=== PATIENT | female | born 1935 | race Caucasian/White ===

== ENCOUNTER 2017-07-05 20:46 | Emergency (ER) | payer MEDICARE, OTHER, SELFPAY ==
[2017-07-05 20:52] VITALS: BP 158/73; PULSE 68; RESP 19; TEMP 36.8; O2SAT 98; BMI 36.1
--- NOTE | 2017-07-05 21:02 | CT_ITS ---
STUDY: CT BRAIN WITHOUT CONTRAST REASON FOR EXAM: Female, 82 years old. Trauma RADIATION DOSAGE (If Supplied By Facility): CTDIvol = ( 44.99 ) mGy, DLP = ( 812.98 ) mGycm TECHNIQUE: Transaxial CT imaging of the brain was performed without administration of intravenous contrast material. Individualized dose optimization techniques were used for this CT. COMPARISON: None. FINDINGS: There is minimal soft tissue swelling of the posterior right parietal region. Normal calvarium. There is moderate cerebral atrophy with widening of the extra-axial spaces and ventricular dilatation. There are areas of decreased attenuation within the white matter tracts of the supratentorial brain, consistent with microvascular disease changes. There is an old lacunar infarct of the right insular lobe. Normal basal ganglia and thalami. Normal brainstem. There is mild cerebellar atrophy. There is no intracranial hemorrhage. There are no findings of an acute ischemic infarction. There is a polypoid filling defect of the left maxillary sinus consistent with a mucoid retention cyst. CT/Brain/Head without Contrast IMPRESSION: 1. Chronic involutional changes of the brain. 2. 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 3. 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 4. There is no intracranial hemorrhage or calvarial fracture. Electronically Signed: Mikie Shi MD at 21:50 EDT , Service support ,
--- NOTE | 2017-07-05 21:02 | CT_ITS ---
STUDY: CT CERVICAL SPINE WITHOUT CONTRAST REASON FOR EXAM: Female, 82 years old. Trauma RADIATION DOSAGE (If Supplied By Facility): CTDIvol = ( 28.71 ) mGy, DLP = ( 589.72 ) mGycm TECHNIQUE: High resolution transaxial imaging was performed without contrast material. Sagittal and coronal images were reconstructed. Individualized dose optimization techniques were used for this CT. COMPARISON: None FINDINGS: Normal craniovertebral junction. There are degenerative changes of the anterior atlantoaxial articulation. There are cystic changes of the odontoid base. There is reversal of the normal cervical lordosis. There is diffuse endplate spondylosis throughout the mid to lower cervical spine. There is flattening and remodeling of the C6 vertebral body. C2-3: There are bilateral hypertrophic degenerative facet changes. There is no central canal or foraminal stenosis. Disc spacing is preserved. C3-4: There are bilateral hypertrophic degenerative facet changes. There is severe foraminal stenosis on the left. There is no central canal stenosis. Disc spacing is preserved. C4-5: There is moderately severe disc space narrowing. There are severe hypertrophic degenerative facet changes on the left with moderately severe left spinal foraminal stenosis. There is no central canal stenosis. C5-6: There is severe disc space narrowing with reactive sclerosis of the adjacent endplates. There is moderately severe bilateral spinal foraminal narrowing. There is no central canal stenosis. There are bilateral hypertrophic degenerative facet changes. C6-7: There is severe disc space narrowing with reactive sclerosis of the adjacent endplates. There is moderately severe bilateral spinal foraminal stenosis. There is mild central canal stenosis at this level. There are mild bilateral degenerative facet changes. C7-T1: There is mild disc space narrowing. There is no central canal or foraminal stenosis. There are mild bilateral degenerative facet changes. Normal visualized soft tissue structures. CT/Spine Cervical without Contras IMPRESSION: Cervical degenerative changes as detailed above. There is no evidence of fracture or subluxation. Electronically Signed: Mikie Shi MD at 22:00 EDT , Service support ,
--- NOTE | 2017-07-05 21:47 | ED.VISSUMM ---
- ER Visit Summary Date of Service: 07/05/17 Chief Complaint: Fall History of Present Illness: The patient is a 82 F presenting after fall. Patient states she was sitting in her chair when the warehouse delivery driver man rang the doorbell. She tripped as she was getting up quickly. She fell hitting her head on the table. She did not lose consciousness. She was able to ambulate after the fall. She has a laceration to her posterior scalp. She is not on anticoagulants. No other injuries. Physical Examination: Vitals are stable. Patient is afebrile. Alert no acute distress. HEENT exam 2 cm posterior scalp laceration and hematoma Neck is nontender Lungs are clear and equal bilaterally. Heart is regular rate and rhythm. Abdomen is soft nontender nondistended. Extremities are unremarkable. Skin is warm and dry. No focal neurologic deficit. Remainder of exam is unremarkable. Emergency Department Course and Treatment: Patient was given tetanus IM. CT head and neck show no acute process. Wound was irrigated, anesthesized with lidocaine. 2 albert were placed. Patient tolerated this well. She is advised wound care instructions. Advised to follow-up with PCP. Advised return to ED if worsening complaints. Disposition: Discharged home Impression: Status post fall, closed head injury, scalp laceration, laceration repair This note was generated with [employer] dictation software. It may contain incorrect words, spelling, and punctuation that were not noted in review of the chart prior to signing ED Disposition - Plan for ED Patient: Chief Complaint: Head Injury Referrals: Adi Meade MD [Primary Care Provider] -
[2017-07-05] MEDS: Diphth,Pertuss(Acell),Tet Vac 0.5 ML Vial IM (22:22)
--- NOTE | 2017-07-05 23:43 | ED.DEP ---
ED Disposition - Plan for ED Patient: Chief Complaint: Head Injury Instructions: ED Head Injury Closed, ED Laceration Scalp Stitch Or Stap Referrals: Adi Meade MD [Primary Care Provider] -
[2017-07-06 00:03] VITALS: PULSE 81; RESP 18; O2SAT 99
== END 2017-07-06 00:04 | disposition home or self-care (01) ==
PROVIDERS: Emergency Provider Emergency Medicine; Family Provider Family Medicine; PCP Family Medicine
DX: S01.01XA Laceration without foreign body of scalp, initial encounter (principal); W01.190A Fall on same level from slipping, tripping and stumbling with subsequent striking against furniture, initial encounter; Y93.9 Activity, unspecified; Y92.9 Unspecified place or not applicable; Y99.9 Unspecified external cause status; Z23 Encounter for immunization; E11.9 Type 2 diabetes mellitus without complications; I10 Essential (primary) hypertension; F32.9 Major depressive disorder, single episode, unspecified; Z79.84 Long term (current) use of oral hypoglycemic drugs; Z79.82 Long term (current) use of aspirin; Z79.52 Long term (current) use of systemic steroids; Z79.899 Other long term (current) drug therapy
CPT/HCPCS: 12001; 70450; 72125; 90715; 99285

== ENCOUNTER → 2017-08-29 17:23 | Outpatient (CLI) | payer MEDICARE, OTHER, SELFPAY ==
--- NOTE | 2017-08-29 17:23 | DT_ITS ---
This patient was seen during an EMR downtime August 26, 2017 - September 02, 2017. This patient may have a combination of paper and electronic documentation or all paper documentation. All documentation is viewable within the e-chart portion of [facility] for each patient visit.
== END ==
PROVIDERS: Family Provider Family Medicine; PCP Family Medicine; Visit Provider Nurse Practitioner Adult Health
DX: R82.99 Other abnormal findings in urine (principal)
CPT/HCPCS: 87086; 87088; 87186

== ENCOUNTER 2017-09-21 01:32 | Emergency (ER) | payer MEDICARE, OTHER, SELFPAY ==
[2017-09-21 01:34] VITALS: BP 149/58; PULSE 67; RESP 15; TEMP 36.5; O2SAT 98; BMI 36.0
--- NOTE | 2017-09-21 01:53 | CT_ITS ---
STUDY: CT BRAIN WITHOUT CONTRAST REASON FOR EXAM: Female, 82 years old. FALL/HIT BACK OF HEAD/LAC/NO LOC RADIATION DOSAGE (If Supplied By Facility): CTDIvol = ( 44.99 ) mGy, DLP = ( 846.73 ) mGycm TECHNIQUE: Transaxial CT imaging of the brain was performed without administration of intravenous contrast material. Individualized dose optimization techniques were used for this CT. COMPARISON: None. FINDINGS: Normal soft tissue structures. Normal calvarium. There is moderate cerebral atrophy with widening of the extra-axial spaces and ventricular dilatation. There are areas of decreased attenuation within the white matter tracts of the supratentorial brain, consistent with microvascular disease changes. Normal basal ganglia and thalami. Normal brainstem. Normal cerebellum. There is no intracranial hemorrhage. There are no findings of an acute ischemic infarction. Left maxillary sinus cyst measures 1.[address]/Brain/Head without Contrast IMPRESSION: Chronic involutional changes of the brain. Electronically Signed: Mauricio Humphries MD at 2:31 EDT Tel , Service support ,
--- NOTE | 2017-09-21 02:42 | ED.VISSUMM ---
- ER Visit Summary Date of Service: 09/21/17 Chief Complaint: Laceration History of Present Illness: The patient is a [address] Ocampo. Patient reports that she stood up too fast lost her balance. She fell and hit her head. She did not have a loss of consciousness. She denies any neck, back, shoulder, wrist, or hip pain. Her tetanus is up-to-date. Review of systems: General: No fever, chills, cold sweats. Cardiovascular: No chest pain, palpitations. Respiratory: No cough, shortness of breath, dyspnea on exertion. Gastrointestinal: No abdominal pain, nausea, vomiting, diarrhea, melena, or hematochezia. Genitourinary: No dysuria, frequency, hematuria. Skin: No rash. Neuro: No headache, numbness, weakness. Physical Examination: Vitals: Stable. Afebrile. Head: 2 cm laceration left occipital region. No active bleeding. Neck: No vertebral tenderness. Full ROM without difficulty. Cleared by NEXUS criteria. Back: No vertebral tenderness. General: A&O x 3. NAD. Cardiovascular exam: Regular rate and rhythm, no murmur, rub or gallop. Respiratory exam: Chest nontender. No crepitus. Clear to auscultation bilaterally. No wheezes or stridor. Abdominal exam: Soft, nontender, nondistended, normal bowel sounds. No pain in RUQ or LUQ specifically. No peritoneal signs. Extremity: Atraumatic. No pain with range of motion. Test Results: CT brain shows no intercranial hemorrhage. Emergency Department Course and Treatment: Patient had her wound anesthetized and repaired. She tolerated it well. Treatment Plan: Patient be discharged instructions to follow-up Dr. Ocampo in 10-14 days for staple removal. Return to the emergency department for any worsening symptoms. Disposition: To home in improved and stable condition. Impression: 1. Fall. 2. Scalp laceration, 2 cm, repaired. Procedure note: Wound was cleansed with chlorhexidine soap. Anesthetized with 1% lidocaine without epinephrine. Copiously irrigated with normal saline. Wound was explored there is no foreign material present. It was closed with 2 albert. The patient tolerated it well. This note was generated with [employer] software. It may contain incorrect words, spelling, and punctuation that were not noted in review of the chart prior to signing ED Disposition - Plan for ED Patient: Disposition: Home or Assisted Living Chief Complaint: Laceration Instructions: ED Laceration Scalp Stitch Or Stap Referrals: Da Ocampo MD [Primary Care Provider] - 10-14 Days suture removal
[2017-09-21 03:51] VITALS: BP 139/67; PULSE 84; RESP 22; O2SAT 98
--- NOTE | 2017-09-21 03:52 | ED.RN ---
THIS NURSE REVIEWED D/C INSTRUCTIONS WITH PT. PT VERBALIZED UNDERSTANDING OF INSTRUCTIONS. PT DENIES FURTHER NEEDS OR QUESTIONS AT THIS TIME
== END 2017-09-21 04:00 | disposition home or self-care (01) ==
LOC: ED 02:49
PROVIDERS: Emergency Provider Emergency Medicine; Family Provider Family Medicine; PCP Family Medicine
DX: S01.01XA Laceration without foreign body of scalp, initial encounter (principal); W19.XXXA Unspecified fall, initial encounter; Y93.9 Activity, unspecified; Y92.9 Unspecified place or not applicable; Y99.9 Unspecified external cause status; E11.9 Type 2 diabetes mellitus without complications; I10 Essential (primary) hypertension; F41.9 Anxiety disorder, unspecified; Z79.84 Long term (current) use of oral hypoglycemic drugs; Z79.82 Long term (current) use of aspirin; Z79.899 Other long term (current) drug therapy
CPT/HCPCS: 12001; 70450; 99283

== ENCOUNTER → 2017-11-29 13:38 | Outpatient (CLI) | payer MEDICARE, OTHER, SELFPAY | PROVIDERS: Family Provider Family Medicine; PCP Family Medicine; Visit Provider Urology | DX: R10.9 Unspecified abdominal pain (principal); R30.0 Dysuria | CPT/HCPCS: 87086; 87088; 87186 ==

== ENCOUNTER → 2018-07-15 16:36 | Outpatient (CLI) | payer MEDICARE, OTHER, SELFPAY ==
--- NOTE | 2018-07-15 16:39 | VDLE_ITS ---
Reason For Study: edema Procedure LEFT Exam performed in department. GSV is normal. The exam was diagnostic. CFV is compressible, spontaneous, phasic, A preliminary report was called and/or faxed competent, and demonstrates normal to Dr. Ocampo. augmentation. FV is compressible, spontaneous, phasic, competent and demonstrates normal augmentation. POP V is compressible, spontaneous, phasic, competent and demonstrates normal augmentation. T/P Trunk is compressible. PTV is compressible. LT PerV is compressible. Hypoechoic area behind the knee measuring 2.85 x .89 cm. Area is nonvascular. Interpretation Summary Deep veins of the left lower extremity are patent and compressible segmentally. There is no evidence of left lower extremity deep vein thrombosis. Valvular competence appears intact within the proximal deep venous system on the left . The left greater saphenous vein appears patent and compressible segmentally. A non-vascular, hypoechoic structure is noted in the left popliteal space, measuring 2.85 cm x 0.89 cm. This probably represents a popliteal cyst. Clinical correlation is advised. Ordering Physician: Da Ocampo Performed By: David Fischer, RVT
== END ==
PROVIDERS: Family Provider Family Medicine; PCP Family Medicine; Referring Provider Family Medicine; Visit Provider Family Medicine
DX: M79.605 Pain in left leg (principal); R60.9 Edema, unspecified
CPT/HCPCS: 93971

== ENCOUNTER 2018-08-17 19:00 | Emergency (ER) | payer MEDICARE, OTHER, SELFPAY ==
[2018-08-17 19:02] VITALS: BP 167/79; PULSE 78; RESP 16; TEMP 37.2; O2SAT 98; BMI 34.3
--- NOTE | 2018-08-17 19:28 | CT_ITS ---
STUDY: CT ABDOMEN AND PELVIS WITHOUT CONTRAST REASON FOR EXAM: Female, 83 years old. Lower back pain. RADIATION DOSAGE (If Supplied By Facility): CTDIvol = ( 21.95 ) mGy, DLP = ( 1014.42 ) mGycm TECHNIQUE: Transaxial images were obtained from the dome of the diaphragm to the symphysis pubis without oral contrast, and without intravenous contrast. Sagittal and coronal images were reconstructed. Individualized dose optimization techniques were used for this CT. COMPARISON: None. FINDINGS: The visualized lung bases are unremarkable. There are coronary artery calcifications. There are stable scattered fat-containing round low-attenuation foci throughout the liver. Normal gallbladder and extrahepatic biliary system. Normal spleen. Normal pancreas. Normal bilateral adrenal glands. There are stable fat-containing round to small to characterize low-attenuation foci within the kidneys that may reflect underlying angiomyolipomas. There are linear calcifications within the kidneys that may be vascular in nature however cannot exclude nonobstructing calculi. Normal visualized stomach. Normal small intestine. There are scattered diverticula throughout the sigmoid colon. There is a moderate amount of stool throughout the colon and rectum. The appendix is visualized and appears normal. There is diffuse atherosclerotic calcification of the abdominal aorta, without a demonstrated aneurysm. Normal inferior vena cava. Normal retroperitoneum. Normal urinary bladder. There is a small umbilical hernia containing fat. There are diffuse degenerative changes of the visualized thoracic and lumbar spine. There is a grade 1 anterior spondylolisthesis of L5 on S1. CT/Abdomen/Pelvis without Cont IMPRESSION: Moderate amount of stool throughout the colon and rectum. Degenerative changes of the visualized thoracic and lumbar spine. Grade 1 anterior spondylolisthesis of L5 on S1. Atherosclerosis. Electronically Signed: Jyoti Payton MD at 21:56 EDT Tel , Service support ,
--- NOTE | 2018-08-17 19:35 | ED.VIS.GEN ---
History of Present Illness Chief Complaint: Back Informant: Patient, Family Onset: Yesterday Context: Gradual Onset Timing: Continuous Quality: ache Location: right low back Current Severity: Severe Maximum Severity: Severe Worsened by: unknown -- pt thinks sometimes by movement Relieved by: nothing; took aleve, tylenol Narrative: Patient is very poor historian. But they are not sure of all the details. Patient states she had no injury, pain started gradually yesterday. She denies any radiation into her flank, abdomen, or lower extremities. She has had back pain in the past and states this is worse/different. She denies any numbness in her lower extremities or her saddle area. No bowel or bladder dysfunction. She has a history of frequent UTIs and is on antibiotics to prevent them and has noticed no urinary symptoms lately. No syncope or presyncope. No chest discomfort. No pain in the shoulder. - Past Medical History (1) DM (diabetes mellitus), type 2 Status: Chronic (2) HTN (hypertension) Status: Chronic (3) History of diverticulosis Status: Chronic (4) History of hyperlipidemia Status: Chronic (5) History of rheumatic fever Status: Chronic (6) Hypothyroidism Status: Chronic (7) Macular degeneration Status: Chronic (8) Obesity Status: Chronic (9) Osteoarthritis Status: Chronic Past Medical History - Allergies and Home Meds Allergies/Adverse Reactions: Allergies doxycycline calcium [From Vibramycin] Allergy (Verified 08/17/18 19:01) Unknown doxycycline hyclate [From Vibramycin] Allergy (Verified 08/17/18 19:01) Unknown doxycycline monohydrate [From Vibramycin] Allergy (Verified 08/17/18 19:01) Unknown fluticasone Allergy (Verified 08/17/18 19:01) Unknown influenza virus vaccine, specific [Influenza Virus Vacc,Specific] Allergy (Verified 08/17/18 19:01) Swelling pneumococcal vaccine [Pneumococcal Vaccine] Allergy (Verified 08/17/18 19:01) Rash promethazine HCl [From Phenergan] Allergy (Verified 08/17/18 19:) Unknown tetracycline [Tetracycline] Allergy (Verified 08/17/18 19:) Unknown metronidazole [From Flagyl] Adverse Reaction (Verified 08/17/18 19:) Unknown sulfamethoxazole [From Bactrim] Adverse Reaction (Verified 08/17/18 19:) Rash trimethoprim [From Bactrim] Adverse Reaction (Verified 08/17/18 19:01) Rash Primary Care Physician: Da Ocampo MD [Primary Care Provider] - Surgical History: cataract, hysterectomy, tonsillectomy - For ovarian cancer many years ago., - - Exploratory laparotomy for lysis of adhesions Lives: With Family Smoking Status: Never smoker - Family History Maternal Family History: Reports: - - Her mother of liver cancer Paternal Family History: Reports: Heart Disease Review of Systems General: Denies: Chills, Fever, Sweats Eyes: Denies: Visual changes - bilaterally, Diplopia ENT: Denies: Rhinorrhea, Sore throat Cardiovascular: Denies: Chest pain, Palpitations Respiratory: Denies: Dyspnea, Cough, Dyspnea on exertion Gastrointestinal: Denies: Abdominal pain, Nausea, Vomiting, Diarrhea, Melena, Hematochezia Genitourinary: Denies: Dysuria, Hematuria, Frequency Musculoskeletal: Reports: Arthralgias - Bilateral ankles, chronic, Back pain. Denies: Swelling, Extremity Pain Skin: Denies: Rash, Wounds Neurological: Denies: Headache, Weakness, Numbness Physical Exam Vital Signs/Narrative: Vital Signs Temp Pulse Resp BP Pulse Ox 08/17/18 19:02 98.9 F 78 16 167/79 H 98 Inital Vital Signs reviewed: Yes General: Well nourished, Well developed, Obese, No Acute Distress Head: Normocephalic, Atraumatic Eyes: Perrl, EOMI ENT: Moist mucous membranes, No rhinorrhea Neck: Supple, Nontender Cardiovascular: Regular rate, Regular rhythm, No murmurs Respiratory: No distress, CTA bilaterally, Chest nontender Abdomen: Soft, Nontender, Nondistended, Normal bowel sounds. Negative for: Pulsatile mass, Ventral hernia, Inguinal hernia, Umbilical hernia Back: Normal Inspection - Without rash, - - Tenderness right lumbosacral area, near SI joint area. Negative for: CVA tenderness Extremities: Nontender, No edema Skin: Normal color, No rash, No Trauma Neurological: Alert, Oriented x3, Cranial nerves II-XII grossly intact, Normal Strength, Normal Sensation Psychological: Normal affect, Normal Mood Diagnostic/Tx/Re-eval Impressions Abdomen/Pelvis CT 08/17/18 19:28 IMPRESSION: Moderate amount of stool throughout the colon and rectum. Degenerative changes of the visualized thoracic and lumbar spine. Grade 1 anterior spondylolisthesis of L5 on S1. Atherosclerosis. Electronically Signed: Jyoti Payton MD at 21:56 EDT Tel , Service support , 08/17/18 19:28 Abdomen/Pelvis without Cont [CT] Stat Laboratory Results 08/17/18 08/17/18 08/17/18 19:40 19:40 20:20 WBC 6.5 RBC 4.57 Hgb 12.4 Hct 38.3 MCV 83.8 MCH 27.1 MCHC 32.4 RDW 13.5 RDW Differential 40.9 Plt Count 273 MPV 9.3 Immature Gran % (Auto) 0.000 Neut % (Auto) 62.6 Lymph % (Auto) 25.8 Williams % (Auto) 9.2 Eos % (Auto) 2.1 Baso % (Auto) 0.3 Absolute Neuts (auto) 4.1 Absolute Lymphs (auto) 1.69 Total Counted Not Reportable Sodium 138 Potassium 3.8 Chloride 103 Carbon Dioxide 25.0 Anion Gap 10 BUN 20 H Creatinine 0.79 Estim Creat Clear Calc 37.45 Est GFR (MDRD) Af Amer 89 Est GFR (MDRD) Non-Af 74 BUN/Creatinine Ratio 25.3 H Glucose 193 H Calcium 9.4 Urine Color Yellow Urine Clarity Clear Urine pH 7.0 Ur Specific [place] 1.005 Urine Protein Negative Urine Glucose (UA) 50 H Urine Ketones 15 H Urine Occult Blood 10 H Urine Nitrite Positive H Urine Bilirubin Negative Urine Urobilinogen Normal Ur Leukocyte Esterase 100 H Urine RBC 0 SEEN Urine WBC 0-5 SEEN Ur Squamous Epith Cells 0 SEEN Urine Bacteria 3+ Urine Mucus 0 SEEN - Medical Decision Making Labs unremarkable, urine showing indicators for infection including nitrite and 500 leukocyte esterase, although only 5 white blood cells. This was sent for culture and given her new unilateral back pain, CT was performed and shows no evidence of pyelo-or other acute abnormality except for a market amount of stool throughout the colon and rectum. She does have degenerative changes throughout the lower spine, but nothing acute that explains her pain. She was reassured. Her pain was treated with morphine which helped. I feel she can safely be discharged home with empiric treatment for urinary tract infection, some pain medication, and outpatient follow-up. She and family are comfortable with that plan. ED Disposition - Plan for ED Patient: Disposition: Home or Assisted Living Diagnosis: UTI (urinary tract infection), Acute low back pain Instructions: ED Low Back Pain Injury, ED UTI Cystitis Female Prescriptions: Hydrocodone Bitart/Apap 5-325 [[place] 5MG-325MG] 1 tab PO Q4H PRN PRN 2 Days #10 tab PRN Reason: Pain Sulfamethoxazole/Trimethoprim [Bactrim Ds Tablet] 1 ea PO BID #14 tab Referrals: Da Ocampo MD [Primary Care Provider] - 3-5 Days
[2018-08-17 19:58] LABS: Absolute Lymphocyte Count 1.69 X10^3/ul (0.83-4.51); Absolute Neutrophil Count 4.1 X10^3/uL (2.0-7.7); Basophil# 0.02 X10^3/uL; Basophil% 0.3 % (0-1); Eosinophil# 0.14 X10^3/uL; Eosinophils% 2.1 % (0-5); Hematocrit 38.3 % (37-47); Hemoglobin 12.4 g/dl (12.0-15.0); Lymphocyte # 1.69 X10^3/ul (4.0); Lymphocyte % 25.8 % (19-41); Mean Corp Hgb Conc 32.4 g/gl (32-36); Mean Corpuscular Hgb 27.1 pg (27.0-32.0); Mean Corpuscular Volume 83.8 fL (81-99); Mean Platelet Vol. 9.3 fl (6.2-12.0); Monocyte% 9.2 % (0-10); Neutrophil # 4.09 X10^3/uL (2.7-7.7); Neutrophil % 62.6 % (47-70); Platelet Count 273 K/mm3 (150-450); RBC Distribution Width CV 13.5 % (11.6-14.6); RBC Distribution Width SD 40.9 fl (35.1-43.9); Red Blood Count 4.57 M/mm3 (4.2-5.4); White Blood Count 6.5 K/mm3 (4.4-11.0)
[2018-08-17 20:02] LABS: POSITIVE COUNT NO; POSITIVE DIFFERENTIAL NO; POSITIVE MORPHOLOGY NO
[2018-08-17] MEDS: Morphine 4 MG/ML Syringe IV (20:02)
[2018-08-17 20:11] LABS: Anion Gap 10 (5-15); BUN 20 mg/dL (7-18); BUN/Creat Ratio 25.3 RATIO (10-20); Calcium,Total 9.4 mg/dL (8.5-10.1); Chloride 103 mmol/L (98-107); Creatinine, Serum 0.79 mg/dL (0.55-1.02); EST Glomerular Filtration Rate 74 mL/min (>60); Est Glom Filt Rate - Afr Amer 89 mL/min (>60); Estimated Creatinine Clearance 37.45 ml/min; Glucose 193 mg/dL (74-106); Potassium 3.8 mmol/L (3.5-5.1); Sodium Level 138 mmol/L (136-145)
[2018-08-17 20:23] LABS: Mucous, Urine 0 SEEN /hpf (<or=2+); Red Blood Cells-Urine 0 SEEN /hpf (0-5); Squamous Epithelial Cells - UA 0 SEEN /hpf (5-10)
[2018-08-17 20:29] LABS: Color, Urine Yellow (Yellow); Glucose, Dipstick 50 mg/dl (Normal); Ketone-Dipstick 15 mg/dl (Negative); Leukocyte Esterase-Dipstick 100 /ul (Negative); Nitrite-Dipstick Positive (Negative); Occult Blood-Urine 10 /ul (Negative); Protein-Dipstick Negative (Negative); Specific Gravity, Urine 1.005 (1.002-1.030); Urine Bilirubin Dipstick Negative (Negative); Urine Clarity Clear (Clear); Urine Urobilinogen Normal (Normal)
[2018-08-17 20:30] LABS: Bacteria 3+ /hpf (None Seen); White Blood Cells 0-5 SEEN /hpf (0-5)
[2018-08-17] MEDS: Ceftriaxone 1 GM/50 ML BAG IV (21:54)
[2018-08-17 21:56] VITALS: BP 192/70; PULSE 66; RESP 18; O2SAT 99
[2018-08-17] MEDS: Morphine 2 MG/ML Syringe IV (21:59)
--- NOTE | 2018-08-17 22:57 | ED.DEP ---
ED Disposition - Plan for ED Patient: Disposition: Home or Assisted Living Diagnosis: UTI (urinary tract infection), Acute low back pain Instructions: ED Low Back Pain Injury, ED UTI Cystitis Female Prescriptions: Hydrocodone Bitart/Apap 5-325 [[place] 5MG-325MG] 1 tab PO Q4H PRN PRN 2 Days #10 tab PRN Reason: Pain Cephalexin [Keflex] 500 mg PO Q6 #28 cap Sulfamethoxazole/Trimethoprim [Bactrim Ds Tablet] 1 ea PO BID #14 tab Referrals: Da Ocampo MD [Primary Care Provider] - 3-5 Days
== END 2018-08-17 23:11 | disposition home or self-care (01) ==
PROVIDERS: Emergency Provider Emergency Medicine; Family Provider Family Medicine; PCP Family Medicine
DX: N39.0 Urinary tract infection, site not specified (principal); M54.5 Low back pain; E11.9 Type 2 diabetes mellitus without complications; I10 Essential (primary) hypertension; E78.5 Hyperlipidemia, unspecified; E03.9 Hypothyroidism, unspecified; H35.30 Unspecified macular degeneration; M19.90 Unspecified osteoarthritis, unspecified site; E66.9 Obesity, unspecified; Z79.84 Long term (current) use of oral hypoglycemic drugs; Z79.82 Long term (current) use of aspirin; Z79.899 Other long term (current) drug therapy; Z88.1 Allergy status to other antibiotic agents; Z88.8 Allergy status to other drugs, medicaments and biological substances; Z88.2 Allergy status to sulfonamides; Z87.440 Personal history of urinary (tract) infections; Z85.43 Personal history of malignant neoplasm of ovary; Z90.710 Acquired absence of both cervix and uterus
CPT/HCPCS: 74176; 80048; 81001; 85025; 87077; 87086; 87088; 87186; 96365; 96375; 96376; 99284; J7050; P9612; A4216

== ENCOUNTER 2018-08-20 17:33 | Inpatient (IN) | payer MEDICARE, OTHER, SELFPAY ==
[2018-08-20] VITALS (10 sets, daily range): BP systolic 112–131; BP diastolic 31–95; PULSE 73–92; RESP 15–18; TEMP 36.4–37.2; O2SAT 95–99; BMI 33.7; BMI 33.9
--- NOTE | 2018-08-20 18:20 | EKG12_ITS ---
Test Reason : GI Blood Pressure : / mmHG Vent. Rate : 072 BPM Atrial Rate : 072 BPM P-R Int : 246 ms QRS Dur : 128 ms QT Int : 454 ms P-R-T Axes : 046 -34 107 degrees QTc Int : 497 ms Sinus rhythm with 1st degree A-V block Left axis deviation Left ventricular hypertrophy with QRS widening Nonspecific T wave abnormality Abnormal ECG Confirmed by DOREEN JUNG, CHRISTIN ([id number]), editor producer JENS OLVERA ([id number]) on 08/25/2018 1:06:48 PM Referred By: Elliott Armando Confirmed By:CHRISTIN LOGAN MD
[2018-08-20] MEDS: 0.9% Normal Saline 1,000 ML IV.SOLN. 2800 ML IV (18:50)
[2018-08-20 18:58] LABS: Mucous, Urine 0 SEEN /hpf (<or=2+); Red Blood Cells-Urine 0 SEEN /hpf (0-5)
--- NOTE | 2018-08-20 19:09 | ED.VIS.GEN ---
History of Present Illness Chief Complaint: Complaint Informant: Patient, Family Onset: Days - Patient was seen on August 17 and diagnosed with urinary tract infection. She was seen today by her PCP Dr. Ocampo. She was sent in for generalized weakness, decreased level of conscious, decreased p.o. intake Context: Sudden Onset Timing: Continuous Quality: Recent UTI with decreased alertness, appetite and weakness Location: Not applicable Current Severity: Moderate Maximum Severity: Moderate Worsened by: Possibly UTI Relieved by: Nothing Associated Symptoms: Patient has a generalized blanching erythematous rash, which she was not aw Narrative: Patient is an elderly 83-year-old who was brought to the ER for decreased level conscious, decreased p.o. intake, generalized weakness, lightheadedness. She was seen on August 17 and diagnosed with UTI. She was prescribed antibiotic. She is not a good informant. She states she does not feel well. Family is concerned because she is not her appropriate self. She is not oriented to time. - Past Medical History (1) DM (diabetes mellitus), type 2 Status: Chronic (2) HTN (hypertension) Status: Chronic (3) History of diverticulosis Status: Chronic (4) Hypothyroidism Status: Chronic (5) Obesity Status: Chronic (6) Osteoarthritis Status: Chronic Past Medical History - Allergies and Home Meds Allergies/Adverse Reactions: Allergies amoxicillin [From Augmentin] Allergy (Verified 08/20/18 17:43) Itching cefdinir Allergy (Verified 08/20/18 17:43) Rash clavulanic acid [From Augmentin] Allergy (Verified 08/20/18 17:43) Itching doxycycline calcium [From Vibramycin] Allergy (Verified 08/20/18 17:43) Unknown doxycycline hyclate [From Vibramycin] Allergy (Verified 08/20/18 17:43) Unknown doxycycline monohydrate [From Vibramycin] Allergy (Verified 08/20/18 17:43) Unknown fluticasone Allergy (Verified 08/20/18 17:43) Unknown influenza virus vaccine, specific [Influenza Virus Vacc,Specific] Allergy (Verified 08/20/18 17:43) Swelling pneumococcal vaccine [Pneumococcal Vaccine] Allergy (Verified 08/20/18 17:43) Rash promethazine HCl [From Phenergan] Allergy (Verified 08/20/18 17:43) Unknown tetracycline [Tetracycline] Allergy (Verified 08/20/18 17:43) Unknown metronidazole [From Flagyl] Adverse Reaction (Verified 08/20/18 17:43) Unknown sulfamethoxazole [From Bactrim] Adverse Reaction (Verified 08/20/18 17:43) Rash trimethoprim [From Bactrim] Adverse Reaction (Verified 08/20/18 17:43) Rash Primary Care Physician: Da Ocampo MD [Primary Care Provider] - Prior records reviewed: Yes - Treated for UTI August 17 Surgical History: cataract, hysterectomy, tonsillectomy - For ovarian cancer many years ago., - - Exploratory laparotomy for lysis of adhesions Lives: Alone Smoking Status: Never smoker Alcohol: None - Family History Maternal Family History: Reports: - - Her mother of liver cancer Paternal Family History: Reports: Heart Disease Review of Systems General: Reports: Chills, Fever, Malaise. Denies: Subjective, Sweats Eyes: Denies: Visual changes - bilaterally, Blurred Vision - bilaterally ENT: Denies: Bilateral ear pain, Rhinorrhea, Sore throat Cardiovascular: Denies: Chest pain, Palpitations Respiratory: Denies: Dyspnea, Cough, Dyspnea on exertion Gastrointestinal: Reports: Nausea. Denies: Abdominal pain, Vomiting, Diarrhea Genitourinary: Denies: Dysuria, Hematuria, Frequency Musculoskeletal: Denies: Myalgias, Arthralgias, Neck pain, Back pain Skin: Denies: Rash Neurological: Reports: Weakness. Denies: Headache Endocrine: Denies: Polyuria, Polydipsia Hematologic: Denies: Easy bruising Physical Exam Vital Signs/Narrative: Vital Signs Temp Pulse Resp BP Pulse Ox 08/20/18 18:57 98 08/20/18 18:56 97.6 F L 08/20/18 18:40 97.6 F L 73 15 122/31 H 99 08/20/18 17:34 97.7 F L 78 16 117/53 L 99 Inital Vital Signs reviewed: Yes General: Well nourished, Well developed, No Acute Distress, - - Decreased level of conscious and repeated stimuli to answer questions Head: Normocephalic, Atraumatic Eyes: Perrl, EOMI. Negative for: Pale conjunctiva, Scleral icterus ENT: No rhinorrhea, TM's clear, Dry mucous membranes Neck: Supple, Nontender, No lymphadenopathy, No JVD Cardiovascular: Regular rate, Regular rhythm, No murmurs, Normal S1, Normal S2 Respiratory: No distress, CTA bilaterally, Chest nontender Abdomen: Soft, Nontender, Nondistended, Normal bowel sounds, No masses Rectal: Deferred Back: Nontender. Negative for: Normal Inspection, CVA tenderness Extremities: Nontender, No edema Skin: Normal color, Rash - Dentalized blanching erythematous confluent rash. Negative for: Cyanosis, Diaphoresis, Jaundice Neurological: Cranial nerves II-XII grossly intact, Normal DTR. Negative for: Alert, Oriented x3, Normal Strength, Normal Sensation Psychological: - - Call to assess Diagnostic/Tx/Re-eval Laboratory Results 08/20/18 08/20/18 08/20/18 18:30 18:40 18:40 WBC 19.4 H RBC 4.40 Hgb 12.0 Hct 36.8 L MCV 83.6 MCH 27.3 MCHC 32.6 RDW 13.8 RDW Differential 41.4 Plt Count 282 MPV 10.0 Immature Gran % (Auto) 0.300 Neut % (Auto) 90.2 H Lymph % (Auto) 4.0 L [place] % (Auto) 4.0 Eos % (Auto) 1.4 Baso % (Auto) 0.1 Absolute Neuts (auto) 17.5 H Absolute Lymphs (auto) 0.78 L Total Counted Not Reportable PT 13.2 INR 1.0 APTT 31.1 Sodium Potassium Chloride Carbon Dioxide Anion Gap BUN Creatinine Estim Creat Clear Calc Est GFR (MDRD) Af Amer Est GFR (MDRD) Non-Af BUN/Creatinine Ratio Glucose Lactic Acid Calcium Total Bilirubin AST ALT Alkaline Phosphatase Total Protein Albumin Globulin Albumin/Globulin Ratio Urine Color Yellow Urine Clarity Cloudy Urine pH 5.0 Ur Specific [place] 1.015 Urine Protein 15 H Urine Glucose (UA) 50 H Urine Ketones Negative Urine Occult Blood 25 H Urine Nitrite Negative Urine Bilirubin 1 H Urine Urobilinogen 1 H Ur Leukocyte Esterase 25 H Urine RBC 0 SEEN Urine WBC 0-5 SEEN Ur Squamous Epith Cells 0-5 SEEN Urine Bacteria 1+ Urine Mucus 0 SEEN 08/20/18 08/20/18 18:40 18:40 WBC RBC Hgb Hct MCV MCH MCHC RDW RDW Differential Plt Count MPV Immature Gran % (Auto) Neut % (Auto) Lymph % (Auto) [place] % (Auto) Eos % (Auto) Baso % (Auto) Absolute Neuts (auto) Absolute Lymphs (auto) Total Counted PT INR APTT Sodium 134 L Potassium 3.6 Chloride 98 Carbon Dioxide 25.0 Anion Gap 11 BUN 45 H Creatinine 1.42 H Estim Creat Clear Calc 27.49 Est GFR (MDRD) Af Amer 46 L Est GFR (MDRD) Non-Af 38 L BUN/Creatinine Ratio 31.7 H Glucose 147 H Lactic Acid 2.8 H Calcium 8.9 Total Bilirubin 1.30 H AST 164 H ALT 233 H Alkaline Phosphatase 273 H Total Protein 7.2 Albumin 3.2 Globulin 4.0 Albumin/Globulin Ratio 0.8 L Urine Color Urine Clarity Urine pH Ur Specific [place] Urine Protein Urine Glucose (UA) Urine Ketones Urine Occult Blood Urine Nitrite Urine Bilirubin Urine Urobilinogen Ur Leukocyte Esterase Urine RBC Urine WBC Ur Squamous Epith Cells Urine Bacteria Urine Mucus - EKG Initial EKG Interpretation: Sinus Rhythm - Ventricular rate is 72. There is a first-degree AV block. [place] the left. Nonspecific intraventricular conduction delay. No ossific ST-T wave changes most likely secondary to LVH with hypertrophy. - Medical Decision Making With mean arterial pressure less than 65 and recent diagnosis of UTI concern patient may have septic shock. Sepsis work-up was undertaken. This also may represent hypotension secondary to allergic reaction since she has a generalized confluent rash. The rash may also represent an infectious rash. Negative for Nikolsky sign. Patient received 30 cc/kg bolus. Will review old records to determine if culture was obtained and if available will administer appropriate antibiotics otherwise will treat with Rocephin unless she has allergy to cephalosporins. Patient was reassessed at 2115. Systolic pressures 115. Patient has severe sepsis by definition. Hospitalist was paged for admission. - Critical Care Time Critical care time (excluding procedures): 30-74 minutes - Critical care time 33 minutes, Discussing w/Patient &/or Family/Hip Hop Dancer, Discussing w/Consultants, Arranging Admission or Transfer ED Disposition - Plan for ED Patient: Disposition: Acute Care Hospital [facility] Diagnosis: Hypotension, Severe sepsis, Urinary tract infection, Acute prerenal azotemia, Renal insufficiency, mild, Elevated liver enzymes, Type 2 diabetes mellitus Referrals: Da Ocampo MD [Primary Care Provider] -
[2018-08-20 19:15] LABS: Color, Urine Yellow (Yellow); Glucose, Dipstick 50 mg/dl (Normal); Ketone-Dipstick Negative (Negative); Leukocyte Esterase-Dipstick 25 /ul (Negative); Nitrite-Dipstick Negative (Negative); Occult Blood-Urine 25 /ul (Negative); Protein-Dipstick 15 mg/dl (Negative); Specific Gravity, Urine 1.015 (1.002-1.030); Urine Clarity Cloudy (Clear); Urine Urobilinogen 1 mg/dl (Normal)
[2018-08-20 19:16] LABS: Urine Bilirubin Dipstick 1 mg/dL (Negative)
[2018-08-20 19:22] LABS: Bacteria 1+ /hpf (None Seen); Squamous Epithelial Cells - UA 0-5 SEEN /hpf (5-10); White Blood Cells 0-5 SEEN /hpf (0-5)
[2018-08-20 19:25] LABS: Absolute Lymphocyte Count 0.78 X10^3/ul (0.83-4.51); Absolute Neutrophil Count 17.5 X10^3/uL (2.0-7.7); Basophil# 0.01 X10^3/uL; Basophil% 0.1 % (0-1); Eosinophil# 0.27 X10^3/uL; Eosinophils% 1.4 % (0-5); Hematocrit 36.8 % (37-47); Lymphocyte # 0.78 X10^3/ul (4.0); Mean Corp Hgb Conc 32.6 g/gl (32-36); Mean Corpuscular Hgb 27.3 pg (27.0-32.0); Mean Corpuscular Volume 83.6 fL (81-99); Monocyte# 0.78 X10^3/uL; Neutrophil % 90.2 % (47-70); Platelet Count 282 K/mm3 (150-450); RBC Distribution Width CV 13.8 % (11.6-14.6); RBC Distribution Width SD 41.4 fl (35.1-43.9); White Blood Count 19.4 K/mm3 (4.4-11.0)
[2018-08-20 19:27] LABS: POSITIVE COUNT NO; POSITIVE DIFFERENTIAL NO; POSITIVE MORPHOLOGY NO
[2018-08-20 19:32] LABS: Prothrombin Time (Protime)PT. 13.2 SECONDS (11.7-14.9)
[2018-08-20 19:34] LABS: Partial Thromboplast Time 31.1 Seconds (24.1-36.2)
[2018-08-20 19:38] LABS: ALB/GLOB Ratio 0.8 RATIO (0.9-2.4); AST(SGOT) 164 U/L (15-37); Alanine Aminotransfer ALT/SGPT 233 U/L (13-56); Albumin, Serum 3.2 g/dL (3.2-5.0); Alkaline Phosphatase 273 U/L (45-117); Anion Gap 11 (5-15); BUN 45 mg/dL (7-18); BUN/Creat Ratio 31.7 RATIO (10-20); Calcium,Total 8.9 mg/dL (8.5-10.1); Chloride 98 mmol/L (98-107); Creatinine, Serum 1.42 mg/dL (0.55-1.02); EST Glomerular Filtration Rate 38 mL/min (>60); Est Glom Filt Rate - Afr Amer 46 mL/min (>60); Estimated Creatinine Clearance 27.49 ml/min; Glucose 147 mg/dL (74-106); Potassium 3.6 mmol/L (3.5-5.1); Protein, Total 7.2 g/dL (6.4-8.2); Sodium Level 134 mmol/L (136-145)
[2018-08-20 20:18] LABS: Lactic Acid 2.8 mmol/L (0.4-2.0)
[2018-08-20 22:48] LABS: Reflex Lactate? Y
[2018-08-20] MEDS: Venlafaxine HCl 75 MG Tablet PO ×2 (23:45→23:46)
[2018-08-20] MEDS: 0.9% Normal Saline 1,000 ML 100 ML IV (23:46)
[2018-08-20] MEDS: predniSONE 20 MG Tablet PO (23:46)
--- NOTE | 2018-08-20 23:49 | PCM.HP.STD ---
Problem List (1) Generalized weakness Status: Acute History of Present Illness Date of Admission: 08/20/18 Chief Complaint: Generalized weakness The patient is a 83 year old F who was seen in the emergency room at [facility] after being was instructed to go to the ER for evaluation of generalized weakness. She had been seen in the emergency room on 08/17/2018 and diagnosed with a UTI, she had been placed on what appears to be Keflex. Patient up is a poor informant and appears to have some cognitive impairment-I talked to the daughter and she confirmed this. Patient's urine culture obtained on 08/17/2018 grew out over 100,000 colonies of staph aureus with sensitivity to follow, patient also had stenotrophomonas maltophilia and low numbers also. During that ER visit, patient had a CBC which showed a normal white blood cell count at 6.5. Evaluation in the emergency room showed the patient's blood pressure to be 117/53, patient was afebrile with a 97.7 temp, pulse ox was 99% on room air. Lab was obtained which showed a white blood cell count elevation at 19.4, patient's chemistry profile was remarkable for a sodium of 134, creatinine of 1.42, BUN of 45, glucose of 147, and a lactic acid of 2.8. Patient's liver enzymes were elevated with a total bilirubin of 1.3, AST of 164, ALT of 233, and alkaline phosphatase of 273. Urinalysis showed +1 bacteria, 0-5 WBCs were seen and there were no RBCs seen. Patient was given Azactam and vancomycin in the emergency room, patient will be admitted to PCU for severe sepsis secondary to acute cystitis, I talked at length with patient's daughter who was present during the time of my examination. Some of the medical information concerning the patient was obtained from the patient's daughter due to the patient's cognitive impairment. Past Medical History Past Medical History (Chronic Problems): Chronic Problems Osteoarthritis (Chronic) History of diverticulosis (Chronic) History of hyperlipidemia (Chronic) Obesity (Chronic) HTN (hypertension) (Chronic) DM (diabetes mellitus), type 2 (Chronic) Macular degeneration (Chronic) Hypothyroidism (Chronic) History of rheumatic fever (Chronic) Allergies amoxicillin [From Augmentin] Allergy (Verified 08/20/18 23:10) Itching cefdinir Allergy (Verified 08/20/18 23:10) Rash clavulanic acid [From Augmentin] Allergy (Verified 08/20/18 23:10) Itching doxycycline calcium [From Vibramycin] Allergy (Verified 08/20/18 23:10) Unknown doxycycline hyclate [From Vibramycin] Allergy (Verified 08/20/18 23:10) Unknown doxycycline monohydrate [From Vibramycin] Allergy (Verified 08/20/18 23:10) Unknown fluticasone Allergy (Verified 08/20/18 23:10) Unknown influenza virus vaccine, specific [Influenza Virus Vacc,Specific] Allergy (Verified 08/20/18 23:10) Swelling pneumococcal vaccine [Pneumococcal Vaccine] Allergy (Verified 08/20/18 23:10) Rash promethazine HCl [From Phenergan] Allergy (Verified 08/20/18 23:10) Unknown tetracycline [Tetracycline] Allergy (Verified 08/20/18 23:10) Unknown metronidazole [From Flagyl] Adverse Reaction (Verified 08/20/18 23:10) Unknown sulfamethoxazole [From Bactrim] Adverse Reaction (Verified 08/20/18 23:10) Rash trimethoprim [From Bactrim] Adverse Reaction (Verified 08/20/18 23:10) Rash Home Medications: Ambulatory Orders Medication Instructions Recorded Aspirin [Aspirin, Baby] 81 mg PO DAILY@0800 12/10/13 Hydrochlorothiazide [Hctz] 25 mg PO DAILY 12/10/13 Levothyroxine Sodium [Levoxyl] 100 mcg PO DAILY 12/10/13 Losartan Potassium [Cozaar] 100 mg PO DAILY 12/10/13 Polyethylene Glycol 3350 [Miralax] 17 gm PO DAILY 12/10/13 glyBURIDE [Micronase] 5 mg PO BIDCM 12/10/13 metFORMIN HCl [Glucophage] 500 mg PO TIDCM 12/10/13 Loteprednol Etabonate [Lotemax] 1 drop LEFT EYE BID 04/22/14 Vit C/E/Zn/Coppr/Lutein/Zeaxan 1,000 mg PO DAILY 04/22/14 [Preservision Areds 2 Softgel] Acetaminophen [Tylenol] 325 mg PO Q6H PRN PRN 08/25/14 Oxybutynin Chloride [Ditropan Xl] 10 mg PO DAILY 08/25/14 Betamethasone Valerate [Valisone 0.1 applicatio TOPICAL BID 08/20/18 Lotion] Clindamycin HCl 150 cap PO 4X/DAY 08/20/18 Diclofenac Sodium [Voltaren] 4 g TOPICAL 4X/DAY 08/20/18 Venlafaxine HCl 75 mg PO DAILY 08/20/18 prednisoLONE eye drops (5 mL) 1 drop RIGHT EYE 4X/DAY 08/21/18 [Pred Forte eye drops (5 mL)] Surgical History: cataract, hysterectomy, tonsillectomy - For ovarian cancer many years ago., - - Exploratory laparotomy for lysis of adhesions Psychiatric History: - - Cognitive impairment-type unknown TECHNICAL ADMINISTRATIVE ASSISTANT History: No pertinent TECHNICAL ADMINISTRATIVE ASSISTANT history Lives: Alone Smoking Status: Never smoker Alcohol: None Drugs: None - *Family History Maternal History Items: - - Her mother of liver cancer Paternal History Items: Heart Disease Review of Systems Comment: Patient was a poor informant, due to cognitive impairment, complete review of systems could not be obtained from the patient, she was able to answer some questions appropriately but overall information concerning the patient was obtained from the patient's daughter. VTE Information - Inpt Only VTE Present on Admission: No VTE Mechan Device Prophylaxis: None VTE Pharm Prophylaxis ordered?: Yes Patient Problems: Active and Suspected Problems Hypotension (Acute) Severe sepsis (Acute) Urinary tract infection (Acute) Acute prerenal azotemia (Acute) Renal insufficiency, mild (Acute) Elevated liver enzymes (Acute) Generalized weakness (Acute) - Physical Exam General: Alert, Cooperative, No apparent distress, Well developed, Well nourished, Confused - Patient exhibits mild confusion HEENT: Atraumatic, PERRLA, EOMI, Normocephalic Oral: Moist Mucosa Neck: Supple, No JVD, Negative Carotid Bruits, No Nuchal Rigidity, Trachea Midline, Thyroid Normal Size and Texture Lungs: Clear to auscultation, Normal air movement, No rhonchi, No wheeze, No rales Cardiovascular: Regular rate, Regular Rhythm, Normal S1, Normal S2, No murmurs, No Ectopic Activity, PMI Normal, No rub noted, No Gallop Abdomen: Bowel Sounds Present, Soft, Non Tender, Non-Distended, No hernias noted Extremities: No clubbing, No cyanosis, Capillary Refill Less than 3 Seconds Skin: No breakdown, Rash Present - There was a diffuse red rash present over the patient's back chest and abdomen area Musculoskeletal: No Tenderness to Palpation of Joints or Extremities Neurological: Cranial nerves II-XII grossly intact, Neuro grossly intact, Sensory exam intact to light touch and pain, Coordination normal Psych/Mental Status: Flat Affect, - - Patient was alert and responded appropriately at times to questions but for the most part patient exhibited some confusion. Vital Signs Temp Pulse Resp BP Pulse Ox 98.9 F 92 18 131/95 H 95 08/20/18 23:05 08/20/18 23:05 08/20/18 23:05 08/20/18 23:05 08/20/18 23:05 Oxygen Delivery Method Room Air Weight: 92.5 kg Body Mass Index (BMI) 33.9 Laboratory Tests Past 24 Hrs 08/20/18 08/20/18 08/20/18 18:30 18:40 18:40 WBC 19.4 H RBC 4.40 Hgb 12.0 Hct 36.8 L MCV 83.6 MCH 27.3 MCHC 32.6 RDW 13.8 RDW Differential 41.4 Plt Count 282 MPV 10.0 Immature Gran % (Auto) 0.300 Neut % (Auto) 90.2 H Lymph % (Auto) 4.0 L [place] % (Auto) 4.0 Eos % (Auto) 1.4 Baso % (Auto) 0.1 Absolute Neuts (auto) 17.5 H Absolute Lymphs (auto) 0.78 L Total Counted Not Reportable PT 13.2 INR 1.0 APTT 31.1 Sodium Potassium Chloride Carbon Dioxide Anion Gap BUN Creatinine Estim Creat Clear Calc Est GFR (MDRD) Af Amer Est GFR (MDRD) Non-Af BUN/Creatinine Ratio Glucose Lactic Acid Calcium Total Bilirubin AST ALT Alkaline Phosphatase Total Protein Albumin Globulin Albumin/Globulin Ratio Urine Color Yellow Urine Clarity Cloudy Urine pH 5.0 Ur Specific [place] 1.015 Urine Protein 15 H Urine Glucose (UA) 50 H Urine Ketones Negative Urine Occult Blood 25 H Urine Nitrite Negative Urine Bilirubin 1 H Urine Urobilinogen 1 H Ur Leukocyte Esterase 25 H Urine RBC 0 SEEN Urine WBC 0-5 SEEN Ur Squamous Epith Cells 0-5 SEEN Urine Bacteria 1+ Urine Mucus 0 SEEN 08/20/18 08/20/18 08/20/18 18:40 18:40 23:20 WBC RBC Hgb Hct MCV MCH MCHC RDW RDW Differential Plt Count MPV Immature Gran % (Auto) Neut % (Auto) Lymph % (Auto) [place] % (Auto) Eos % (Auto) Baso % (Auto) Absolute Neuts (auto) Absolute Lymphs (auto) Total Counted PT INR APTT Sodium 134 L Potassium 3.6 Chloride 98 Carbon Dioxide 25.0 Anion Gap 11 BUN 45 H Creatinine 1.42 H Estim Creat Clear Calc 27.49 Est GFR (MDRD) Af Amer 46 L Est GFR (MDRD) Non-Af 38 L BUN/Creatinine Ratio 31.7 H Glucose 147 H Lactic Acid 2.8 H Pending Calcium 8.9 Total Bilirubin 1.30 H AST 164 H ALT 233 H Alkaline Phosphatase 273 H Total Protein 7.2 Albumin 3.2 Globulin 4.0 Albumin/Globulin Ratio 0.8 L Urine Color Urine Clarity Urine pH Ur Specific [place] Urine Protein Urine Glucose (UA) Urine Ketones Urine Occult Blood Urine Nitrite Urine Bilirubin Urine Urobilinogen Ur Leukocyte Esterase Urine RBC Urine WBC Ur Squamous Epith Cells Urine Bacteria Urine Mucus Assessment/Plan All Active Problems Hypotension (Acute) Severe sepsis (Acute) Urinary tract infection (Acute) Acute prerenal azotemia (Acute) Renal insufficiency, mild (Acute) Elevated liver enzymes (Acute) Generalized weakness (Acute) Shoulder pain, left (Resolved) Fecal impaction of colon (Resolved) Abdominal pain (Resolved) Intractable nausea and vomiting (Resolved) Fall (Resolved) Abrasion of anterior lower leg (Resolved) Rib pain on left side (Resolved) History of ovarian cancer (Resolved) #1 severe sepsis-secondary to acute cystitis-suspect this is secondary to gram-negative bacteria not staph on her present urine culture. Repeat urine culture was obtained in the emergency room, I have elected to place patient on meropenem due to her multiple allergies. Blood cultures were obtained, lactic acid will be repeated. #2 acute cystitis-suspect gram-negative bacteria-according the patient's daughter, patient has had frequent urinary tract infections, and going over her micro reports in the computer, usually the patient has E. coli which is sensitive to all antibiotics tested. I have elected to place the patient on meropenem-it appears the patient has allergies to penicillin according to the daughter. #3 diffuse rash-felt to be secondary to allergic drug reaction possibly from Keflex-patient will be placed on oral prednisone and monitored #4 mild to moderate cognitive impairment-type unknown, this could be exacerbated by a metabolic encephalopathy, patient will be monitored #5 history of frequent UTIs-patient could not void in the emergency room and a Mora cath was placed, patient states she is not taking oxybutynin which was listed as her home medication. Patient has seen Dr. Pereira on a chronic basis, the daughter is not sure the patient's actual diagnosis concerning her bladder problems #6 type 2 diabetes-blood sugars will be monitored #7 hypertension #8 osteoarthritis-PT and OT will see the patient Code Visit Inpatient E&M: 18948 Init Hosp L3
[2018-08-21] VITALS (10 sets, daily range): BP systolic 108–133; BP diastolic 48–68; PULSE 65–84; RESP 15–18; TEMP 36.6–37.2; O2SAT 95–99
[2018-08-21] LABS: Bedside Glucose 149 mg/dL (70-110)
[2018-08-21 00:01] LABS: Lactic Acid 2.1 mmol/L (0.4-2.0)
[2018-08-21] MEDS: 0.9% Normal Saline 1,000 ML 100 ML IV ×2 (02:46→16:17)
[2018-08-21 06:23] LABS: ALB/GLOB Ratio 0.7 RATIO (0.9-2.4); AST(SGOT) 121 U/L (15-37); Alanine Aminotransfer ALT/SGPT 211 U/L (13-56); Albumin, Serum 2.5 g/dL (3.2-5.0); Alkaline Phosphatase 285 U/L (45-117); Anion Gap 8 (5-15); BUN 35 mg/dL (7-18); BUN/Creat Ratio 37.9 RATIO (10-20); Calcium,Total 8.5 mg/dL (8.5-10.1); Chloride 108 mmol/L (98-107); Creatinine, Serum 0.92 mg/dL (0.55-1.02); EST Glomerular Filtration Rate 62 mL/min (>60); Est Glom Filt Rate - Afr Amer 75 mL/min (>60); Estimated Creatinine Clearance 42.42 ml/min; Globulin 3.8 g/dL (2.2-4.2); Glucose 201 mg/dL (74-106); Potassium 3.9 mmol/L (3.5-5.1); Protein, Total 6.3 g/dL (6.4-8.2); Sodium Level 139 mmol/L (136-145)
[2018-08-21] MEDS: Levothyroxine 100 MCG Tablet PO (06:29)
[2018-08-21] MEDS: Insulin Lispro 100 UNIT/ML INSULN.PEN SQ ×4 (06:34→21:21)
[2018-08-21 06:35] LABS: Bedside Glucose 220 mg/dL (70-110)
[2018-08-21 06:49] LABS: Absolute Lymphocyte Count 0.56 X10^3/ul (0.83-4.51); Absolute Neutrophil Count 16.5 X10^3/uL (2.0-7.7); Basophil# 0.01 X10^3/uL; Basophil% 0.1 % (0-1); Eosinophil# 0.08 X10^3/uL; Eosinophils% 0.5 % (0-5); Hematocrit 33.7 % (37-47); Lymphocyte # 0.56 X10^3/ul (4.0); Lymphocyte % 3.2 % (19-41); Mean Corp Hgb Conc 32.6 g/gl (32-36); Mean Corpuscular Hgb 27.6 pg (27.0-32.0); Mean Corpuscular Volume 84.7 fL (81-99); Mean Platelet Vol. 9.7 fl (6.2-12.0); Monocyte# 0.34 X10^3/uL; Monocyte% 1.9 % (0-10); Neutrophil # 16.47 X10^3/uL (2.7-7.7); Platelet Count 243 K/mm3 (150-450); RBC Distribution Width SD 43.5 fl (35.1-43.9); Red Blood Count 3.98 M/mm3 (4.2-5.4); White Blood Count 17.5 K/mm3 (4.4-11.0)
[2018-08-21 07:01] LABS: Differential Indicated SCAN CRITERIA MET; POSITIVE COUNT NO; POSITIVE DIFFERENTIAL YES; POSITIVE MORPHOLOGY NO
[2018-08-21] MEDS: metFORMIN HCl 500 MG Tablet PO (08:16)
[2018-08-21] MEDS: predniSONE 20 MG Tablet PO (08:16)
[2018-08-21] MEDS: Enoxaparin 30 MG/0.3 ML Syringe SC (09:39)
[2018-08-21] MEDS: Polyethylene Glycol 3350 17 GM PACKET PO (09:39)
[2018-08-21] MEDS: prednisoLONE eye drops (1 mL) 1 DROP OPTH.BTL 1 DRP RIGHT EYE ×2 (09:40→14:47)
--- NOTE | 2018-08-21 09:54 | CASEMGMT ---
VICENTA MARIE assessment: Face to Face with patient for initial transition planning/care coordination assessment. VICENTA MARIE introduced self and role at [facility], pt voices understanding and consents to assessment at this time. Pt is sitting up in bed in no distress at this time. Pt is A/OX4 at this time and answers all questions appropriately at this time. Care providers, pharmacy, and demographics verified at this time. PCP: Terrence Specialists: shellie Pereira [facility]acy: [facility] Insurance: MCR A/B, Prescription Benefit: [employer] Living Will/HPOA: Pt states is unsure if she has LW/HPOA but is aware that they are not on file at [facility] at this time. Pt states her daughter, Josey, would be HPOA, if she does have it. LNOK: Josey España, daughter; Leelee Humphries, daughter Living Arrangements: Pt states lives alone in a 1 story home with 2 railed steps into home and states no concerns at home at this time. Pt states is independent with ADL's. Transportation: Pt states takes a [employer] or daughters drive and states no transportation concerns at this time. DME/HHC: Pt states has the following DME: rails around house, grab bars, shower chair, walker, cane, medical alert, and raised toilet seat. Pt states no hx of HHC or SNF in the past. Pt states no concerns with going home at time of discharge. Pt states is retired. Pt states does not smoke or drink ETOH. Pt states no further concerns/needs at this time. CM to follow PT/OT evals and for any further discharge planning/needs. Advised pt to ask for CM if any further questions/concerns/needs arise, voices understanding. Pt Goal: Home Plan: Home, pending PT/OT evals. [place] VICENTA MARIE
--- NOTE | 2018-08-21 10:25 | PCM.RX.CS ---
Consult Pharmacy has been consulted to manage selected antiobiotic: Vancomycin Type of Consult: New start Suspected Infection: Other Labs: Sodium 139 mmol/L (136-145) 08/21/18 05:16 Potassium 3.9 mmol/L (3.5-5.1) 08/21/18 05:16 Chloride 108 mmol/L (98-107) H 08/21/18 05:16 Carbon Dioxide 23.0 mmol/L (21.0-32.0) 08/21/18 05:16 Anion Gap 8 (5-15) 08/21/18 05:16 BUN 35 mg/dL (7-18) H 08/21/18 05:16 Creatinine 0.92 mg/dL (0.55-1.02) 08/21/18 05:16 Est GFR (MDRD) Af Amer 75 mL/min (>60) 08/21/18 05:16 Est GFR (MDRD) Non-Af 62 mL/min (>60) 08/21/18 05:16 BUN/Creatinine Ratio 37.9 RATIO (10-20) H 08/21/18 05:16 Glucose 201 mg/dL (74-106) H 08/21/18 05:16 Weight used for dosin kg Estimated Creatinine Clearance: 42 mL/min Goal Trough: 10-15 mcg/mL Pharmacy Plan for Drug Dosing: Load with vancomycin 2000mg IV x1 and continue with 1250mg IV q24h and trough prior to 3rd dose per policy. Pharmacy Service will continue to monitor and adjust dosing as required. Follow-Up Labs: Trough Vancomycin - 08/23 @ 1030
[2018-08-21 12:16] LABS: Bedside Glucose 197 mg/dL (70-110)
--- NOTE | 2018-08-21 12:42 | PN_ITS ---
<Aftab Lopez - Last Filed: 08/21/18 12:36> Patient Problems: Active and Suspected Problems Hypotension (Acute) Severe sepsis (Acute) Urinary tract infection (Acute) Acute prerenal azotemia (Acute) Renal insufficiency, mild (Acute) Elevated liver enzymes (Acute) Generalized weakness (Acute) Subjective: Pt resting comfortably in bed NAD. States she feels weak. Denies dysuria, frequency, urgency, fever/chills. Retaining urine this AM so mcintosh placed. - Physical Exam General: Alert, Oriented x3, Cooperative HEENT: Atraumatic, PERRLA, EOMI, Normocephalic Neck: Supple, No JVD, Negative Carotid Bruits Lungs: Clear to auscultation, Normal air movement Cardiovascular: Regular rate, No murmurs Abdomen: Bowel Sounds Present, Soft, Non Tender Extremities: No edema, Capillary Refill Less than 3 Seconds Skin: No rashes, No breakdown Musculoskeletal: No Tenderness to Palpation of Joints or Extremities Neurological: Cranial nerves II-XII grossly intact Psych/Mental Status: Normal Affect, Appropriate Vital Signs Temp Pulse Resp BP Pulse Ox 98.5 F 68 15 119/48 L 97 08/21/18 09:29 08/21/18 10:58 08/21/18 09:29 08/21/18 09:29 08/21/18 09:29 Oxygen Delivery Method Room Air Weight: 203 lb 14.841 oz Body Mass Index (BMI) 33.9 Intake and Output for Last 24 Hours 08/19/18 08/20/18 08/21/18 23:59 23:59 23:59 Intake Total 2412 / 2412 Output Total 2200 / 2200 Balance 212 / 212 Laboratory Tests Past 24 Hrs 08/20/18 08/20/18 08/20/18 18:30 18:40 18:40 WBC 19.4 H RBC 4.40 Hgb 12.0 Hct 36.8 L MCV 83.6 MCH 27.3 MCHC 32.6 RDW 13.8 RDW Differential 41.4 Plt Count 282 MPV 10.0 Immature Gran % (Auto) 0.300 Neut % (Auto) 90.2 H Lymph % (Auto) 4.0 L [place] % (Auto) 4.0 Eos % (Auto) 1.4 Baso % (Auto) 0.1 Absolute Neuts (auto) 17.5 H Absolute Lymphs (auto) 0.78 L Total Counted Not Reportable Differential Comment PT 13.2 INR 1.0 APTT 31.1 Sodium Potassium Chloride Carbon Dioxide Anion Gap BUN Creatinine Estim Creat Clear Calc Est GFR (MDRD) Af Amer Est GFR (MDRD) Non-Af BUN/Creatinine Ratio Glucose Lactic Acid Calcium Total Bilirubin AST ALT Alkaline Phosphatase Total Protein Albumin Globulin Albumin/Globulin Ratio Urine Color Yellow Urine Clarity Cloudy Urine pH 5.0 Ur Specific [place] 1.015 Urine Protein 15 H Urine Glucose (UA) 50 H Urine Ketones Negative Urine Occult Blood 25 H Urine Nitrite Negative Urine Bilirubin 1 H Urine Urobilinogen 1 H Ur Leukocyte Esterase 25 H Urine RBC 0 SEEN Urine WBC 0-5 SEEN Ur Squamous Epith Cells 0-5 SEEN Urine Bacteria 1+ Urine Mucus 0 SEEN 08/20/18 08/20/18 08/20/18 18:40 18:40 23:20 WBC RBC Hgb Hct MCV MCH MCHC RDW RDW Differential Plt Count MPV Immature Gran % (Auto) Neut % (Auto) Lymph % (Auto) Pit[place] % (Auto) Eos % (Auto) Baso % (Auto) Absolute Neuts (auto) Absolute Lymphs (auto) Total Counted Differential Comment PT INR APTT Sodium 134 L Potassium 3.6 Chloride 98 Carbon Dioxide 25.0 Anion Gap 11 BUN 45 H Creatinine 1.42 H Estim Creat Clear Calc 27.49 Est GFR (MDRD) Af Amer 46 L Est GFR (MDRD) Non-Af 38 L BUN/Creatinine Ratio 31.7 H Glucose 147 H Lactic Acid 2.8 H 2.1 H Calcium 8.9 Total Bilirubin 1.30 H AST 164 H ALT 233 H Alkaline Phosphatase 273 H Total Protein 7.2 Albumin 3.2 Globulin 4.0 Albumin/Globulin Ratio 0.8 L Urine Color Urine Clarity Urine pH Ur Specific [place] Urine Protein Urine Glucose (UA) Urine Ketones Urine Occult Blood Urine Nitrite Urine Bilirubin Urine Urobilinogen Ur Leukocyte Esterase Urine RBC Urine WBC Ur Squamous Epith Cells Urine Bacteria Urine Mucus 08/21/18 08/21/18 08/21/18 05:16 05:16 10:35 WBC 17.5 H RBC 3.98 L Hgb 11.0 L Hct 33.7 L MCV 84.7 MCH 27.6 MCHC 32.6 RDW 14.0 RDW Differential 43.5 Plt Count 243 MPV 9.7 Immature Gran % (Auto) 0.300 Neut % (Auto) 94.0 H Lymph % (Auto) 3.2 L [place] % (Auto) 1.9 Eos % (Auto) 0.5 Baso % (Auto) 0.1 Absolute Neuts (auto) 16.5 H Absolute Lymphs (auto) 0.56 L Total Counted Not Reportable Differential Comment PT INR APTT Sodium 139 Potassium 3.9 Chloride 108 H Carbon Dioxide 23.0 Anion Gap 8 BUN 35 H Creatinine 0.92 Estim Creat Clear Calc 42.42 Est GFR (MDRD) Af Amer 75 Est GFR (MDRD) Non-Af 62 BUN/Creatinine Ratio 37.9 H Glucose 201 H Lactic Acid 2.0 Calcium 8.5 Total Bilirubin 1.00 AST 121 H ALT 211 H Alkaline Phosphatase 285 H Total Protein 6.3 L Albumin 2.5 L Globulin 3.8 Albumin/Globulin Ratio 0.7 L Urine Color Urine Clarity Urine pH Ur Specific [place] Urine Protein Urine Glucose (UA) Urine Ketones Urine Occult Blood Urine Nitrite Urine Bilirubin Urine Urobilinogen Ur Leukocyte Esterase Urine RBC Urine WBC Ur Squamous Epith Cells Urine Bacteria Urine Mucus POC Glucose 08/21/18 08/21/18 08/20/18 11:55 06:32 23:50 POC Glucose 197 H 220 H 149 H Medical Necessity - Tobacco Use Smoking Status: Never smoker Assessment/Plan All Active Problems Hypotension (Acute) Severe sepsis (Acute) Urinary tract infection (Acute) Acute prerenal azotemia (Acute) Renal insufficiency, mild (Acute) Elevated liver enzymes (Acute) Generalized weakness (Acute) Shoulder pain, left (Resolved) Fecal impaction of colon (Resolved) Abdominal pain (Resolved) Intractable nausea and vomiting (Resolved) Fall (Resolved) Abrasion of anterior lower leg (Resolved) Rib pain on left side (Resolved) History of ovarian cancer (Resolved) 1. Acute severe sepsis 2/2 UTI - prior cultures with pansensitive E coli, Stenotrophomonas maltophilia resistant to levaquin albeit small growth, and MRSA with large growth. Continue meropenem for coverage of stenotrophomonas, and start vancomycin for MRSA. WBC is improving, no fever. Await new set of cultures. Maintain Mcintosh for now, plan to discontinue prior to discharge with voiding trial. Lactic acid resolved. Failed outpatient treatment with Keflex. Bactrim would treat both above bacteria based on prior cultures, however given her acute kidney injury, and allergy to Bactrim, will avoid this for now. 2. Acute kidney injury-secondary to UTI and dehydration-improving. Hold nephrotoxic agents. 3. Type 2 diabetes with obesity-hold metformin, sliding scale insulin 4. Hypertension-stable 5. Underlying dementia-confirmed with family she has increased forgetfulness, will have PT OT evaluate her while she lives here. 6. Hypothyroidism-Synthroid DVT prophylaxis: Lanoxin Discharge planning: PT OT eval's, wait for urine cultures, voiding trial prior to discharge This patient was seen by Aftab Lopez PA-C under the supervision of Doctor Emi. <Julia Middleton - Last Filed: 08/21/18 16:04> - Physical Exam Vital Signs Temp Pulse Resp BP Pulse Ox 98.5 F 65 15 119/48 L 97 08/21/18 09:29 08/21/18 15:07 08/21/18 09:29 08/21/18 09:29 08/21/18 09:29 Oxygen Delivery Method Room Air Weight: 203 lb 14.841 oz Body Mass Index (BMI) 33.9 Intake and Output for Last 24 Hours 08/19/18 08/20/18 08/21/18 23:59 23:59 23:59 Intake Total 2412 / 2412 Output Total 2200 / 2200 Balance 212 / 212 Laboratory Tests Past 24 Hrs 08/20/18 08/20/18 08/20/18 18:30 18:40 18:40 WBC 19.4 H RBC 4.40 Hgb 12.0 Hct 36.8 L MCV 83.6 MCH 27.3 MCHC 32.6 RDW 13.8 RDW Differential 41.4 Plt Count 282 MPV 10.0 Immature Gran % (Auto) 0.300 Neut % (Auto) 90.2 H Lymph % (Auto) 4.0 L [place] % (Auto) 4.0 Eos % (Auto) 1.4 Baso % (Auto) 0.1 Absolute Neuts (auto) 17.5 H Absolute Lymphs (auto) 0.78 L Total Counted Not Reportable Differential Comment PT 13.2 INR 1.0 APTT 31.1 Sodium Potassium Chloride Carbon Dioxide Anion Gap BUN Creatinine Estim Creat Clear Calc Est GFR (MDRD) Af Amer Est GFR (MDRD) Non-Af BUN/Creatinine Ratio Glucose Lactic Acid Calcium Total Bilirubin AST ALT Alkaline Phosphatase Total Protein Albumin Globulin Albumin/Globulin Ratio Urine Color Yellow Urine Clarity Cloudy Urine pH 5.0 Ur Specific [place] 1.015 Urine Protein 15 H Urine Glucose (UA) 50 H Urine Ketones Negative Urine Occult Blood 25 H Urine Nitrite Negative Urine Bilirubin 1 H Urine Urobilinogen 1 H Ur Leukocyte Esterase 25 H Urine RBC 0 SEEN Urine WBC 0-5 SEEN Ur Squamous Epith Cells 0-5 SEEN Urine Bacteria 1+ Urine Mucus 0 SEEN 08/20/18 08/20/18 08/20/18 18:40 18:40 23:20 WBC RBC Hgb Hct MCV MCH MCHC RDW RDW Differential Plt Count MPV Immature Gran % (Auto) Neut % (Auto) Lymph % (Auto) [place] % (Auto) Eos % (Auto) Baso % (Auto) Absolute Neuts (auto) Absolute Lymphs (auto) Total Counted Differential Comment PT INR APTT Sodium 134 L Potassium 3.6 Chloride 98 Carbon Dioxide 25.0 Anion Gap 11 BUN 45 H Creatinine 1.42 H Estim Creat Clear Calc 27.49 Est GFR (MDRD) Af Amer 46 L Est GFR (MDRD) Non-Af 38 L BUN/Creatinine Ratio 31.7 H Glucose 147 H Lactic Acid 2.8 H 2.1 H Calcium 8.9 Total Bilirubin 1.30 H AST 164 H ALT 233 H Alkaline Phosphatase 273 H Total Protein 7.2 Albumin 3.2 Globulin 4.0 Albumin/Globulin Ratio 0.8 L Urine Color Urine Clarity Urine pH Ur Specific [place] Urine Protein Urine Glucose (UA) Urine Ketones Urine Occult Blood Urine Nitrite Urine Bilirubin Urine Urobilinogen Ur Leukocyte Esterase Urine RBC Urine WBC Ur Squamous Epith Cells Urine Bacteria Urine Mucus 08/21/18 08/21/18 08/21/18 05:16 05:16 10:35 WBC 17.5 H RBC 3.98 L Hgb 11.0 L Hct 33.7 L MCV 84.7 MCH 27.6 MCHC 32.6 RDW 14.0 RDW Differential 43.5 Plt Count 243 MPV 9.7 Immature Gran % (Auto) 0.300 Neut % (Auto) 94.0 H Lymph % (Auto) 3.2 L [place] % (Auto) 1.9 Eos % (Auto) 0.5 Baso % (Auto) 0.1 Absolute Neuts (auto) 16.5 H Absolute Lymphs (auto) 0.56 L Total Counted Not Reportable Differential Comment PT INR APTT Sodium 139 Potassium 3.9 Chloride 108 H Carbon Dioxide 23.0 Anion Gap 8 BUN 35 H Creatinine 0.92 Estim Creat Clear Calc 42.42 Est GFR (MDRD) Af Amer 75 Est GFR (MDRD) Non-Af 62 BUN/Creatinine Ratio 37.9 H Glucose 201 H Lactic Acid 2.0 Calcium 8.5 Total Bilirubin 1.00 AST 121 H ALT 211 H Alkaline Phosphatase 285 H Total Protein 6.3 L Albumin 2.5 L Globulin 3.8 Albumin/Globulin Ratio 0.7 L Urine Color Urine Clarity Urine pH Ur Specific [place] Urine Protein Urine Glucose (UA) Urine Ketones Urine Occult Blood Urine Nitrite Urine Bilirubin Urine Urobilinogen Ur Leukocyte Esterase Urine RBC Urine WBC Ur Squamous Epith Cells Urine Bacteria Urine Mucus 08/21/18 14:55 WBC RBC Hgb Hct MCV MCH MCHC RDW RDW Differential Plt Count MPV Immature Gran % (Auto) Neut % (Auto) Lymph % (Auto) [place] % (Auto) Eos % (Auto) Baso % (Auto) Absolute Neuts (auto) Absolute Lymphs (auto) Total Counted Differential Comment PT INR APTT Sodium Potassium Chloride Carbon Dioxide Anion Gap BUN Creatinine Estim Creat Clear Calc Est GFR (MDRD) Af Amer Est GFR (MDRD) Non-Af BUN/Creatinine Ratio Glucose Lactic Acid 2.8 H Calcium Total Bilirubin AST ALT Alkaline Phosphatase Total Protein Albumin Globulin Albumin/Globulin Ratio Urine Color Urine Clarity Urine pH Ur Specific [place] Urine Protein Urine Glucose (UA) Urine Ketones Urine Occult Blood Urine Nitrite Urine Bilirubin Urine Urobilinogen Ur Leukocyte Esterase Urine RBC Urine WBC Ur Squamous Epith Cells Urine Bacteria Urine Mucus POC Glucose 08/21/18 08/21/18 08/20/18 11:55 06:32 23:50 POC Glucose 197 H 220 H 149 H Assessment/Plan Patient seen by Aftab Parker under my supervision Patient 73-year-old female was admitted with a complaint of generalized weakness. She had previously been diagnosed with UTI by the ED on 08/17/2018 and started on Keflex. On admission, she was found to have elevated white cell count of 19.4 with lactic acid of 2.8 and urine showing 1+ bacteria. She was admitted and managed for severe sepsis due to UTI. She was started on IV meropenem on account of her allergies to amoxicillin. Patient also had a red papular rash on her back which was thought to be a drug reaction from the Keflex. Patient seen and examined. She had no complaints. She denied any fever chills, palpitations or dizziness, chest pain, diarrhea vomiting. Review of systems otherwise negative. Labs and vitals reviewed. o/e: Vital Signs Height 5 ft 5 in Weight: 203 lb 14.841 oz Weight in Pounds 203.9 lbs Pulse Ox 97 Temperature 98.5 F Pulse Rate 65 Respiratory Rate 15 Blood Pressure 119/48 Blood Pressure Position Semi-Fowlers General: Alert, Oriented x3, Cooperative HEENT: Atraumatic, PERRLA, EOMI, Normocephalic Neck: Supple, No JVD, Negative Carotid Bruits Lungs: Clear to auscultation, Normal air movement Cardiovascular: Regular rate, No murmurs Abdomen: Bowel Sounds Present, Soft, Non Tender Extremities: No edema, Capillary Refill Less than 3 Seconds Skin: mild erythematous papular rash on her back; seems to have improved Musculoskeletal: No Tenderness to Palpation of Joints or Extremities Neurological: Cranial nerves II-XII grossly intact Psych/Mental Status: Normal Affect, Appropriate Plan is continue IV meropenem for UTI. Await urine cultures. Started on prednisone for the allergic rash. Will continue. Continue IV fluids for BRADY. White cell count noted to have trended down to 17.5. As of management as per Aftab Lopez PA-C's note which I reviewed and endorsed. Code Visit Inpatient E&M: 41530 Subs Hosp L3
[2018-08-21 14:44] LABS: Reflex Lactate? Y
[2018-08-21] MEDS: Nystatin Ointment 1 APPLIC TOPICAL ×2 (14:45→21:24)
[2018-08-21 15:57] LABS: Lactic Acid 2.8 mmol/L (0.4-2.0)
[2018-08-21 16:56] LABS: Bedside Glucose 239 mg/dL (70-110)
[2018-08-21] MEDS: Venlafaxine HCl 75 MG Tablet PO (21:21)
[2018-08-21] MEDS: Aspirin 81 MG TAB.CHEW PO (21:21)
[2018-08-21 21:45] LABS: Bedside Glucose 204 mg/dL (70-110)
[2018-08-22] VITALS (10 sets, daily range): BP systolic 141–195; BP diastolic 45–82; PULSE 60–71; RESP 14–18; TEMP 36.4–36.7; O2SAT 96–99
[2018-08-22] MEDS: hydrOXYzine PAM 25 MG Capsule 50 MG PO (02:20)
[2018-08-22] MEDS: 0.9% Normal Saline 1,000 ML 100 ML IV (02:22)
[2018-08-22 06:00] LABS: Absolute Lymphocyte Count 1.66 X10^3/ul (0.83-4.51); Absolute Neutrophil Count 10.6 X10^3/uL (2.0-7.7); Basophil# 0.02 X10^3/uL; Basophil% 0.1 % (0-1); Eosinophil# 0.33 X10^3/uL; Eosinophils% 2.4 % (0-5); Hematocrit 31.4 % (37-47); Lymphocyte # 1.66 X10^3/ul (4.0); Lymphocyte % 12.3 % (19-41); Mean Corp Hgb Conc 31.8 g/gl (32-36); Mean Corpuscular Hgb 27.3 pg (27.0-32.0); Mean Corpuscular Volume 85.8 fL (81-99); Mean Platelet Vol. 9.5 fl (6.2-12.0); Monocyte# 0.85 X10^3/uL; Monocyte% 6.3 % (0-10); Neutrophil # 10.59 X10^3/uL (2.7-7.7); Neutrophil % 78.6 % (47-70); Platelet Count 223 K/mm3 (150-450); RBC Distribution Width CV 14.1 % (11.6-14.6); RBC Distribution Width SD 44.2 fl (35.1-43.9); Red Blood Count 3.66 M/mm3 (4.2-5.4); White Blood Count 13.5 K/mm3 (4.4-11.0)
[2018-08-22 06:04] LABS: POSITIVE COUNT NO; POSITIVE DIFFERENTIAL NO; POSITIVE MORPHOLOGY NO
[2018-08-22 06:12] LABS: Anion Gap 7 (5-15); BUN 25 mg/dL (7-18); BUN/Creat Ratio 40.8 RATIO (10-20); Calcium,Total 8.5 mg/dL (8.5-10.1); Chloride 110 mmol/L (98-107); Creatinine, Serum 0.61 mg/dL (0.55-1.02); EST Glomerular Filtration Rate 99 mL/min (>60); Est Glom Filt Rate - Afr Amer 120 mL/min (>60); Estimated Creatinine Clearance 39.03 ml/min; Glucose 103 mg/dL (74-106); Potassium 3.4 mmol/L (3.5-5.1); Sodium Level 143 mmol/L (136-145)
[2018-08-22] MEDS: Levothyroxine 100 MCG Tablet PO (06:43)
[2018-08-22 07:11] LABS: Bedside Glucose 91 mg/dL (70-110)
[2018-08-22] MEDS: predniSONE 20 MG Tablet PO (08:17)
[2018-08-22] MEDS: Polyethylene Glycol 3350 17 GM PACKET PO (08:18)
[2018-08-22] MEDS: prednisoLONE eye drops (1 mL) 1 DROP OPTH.BTL 1 DRP RIGHT EYE (10:29)
[2018-08-22] MEDS: Nystatin Ointment 1 APPLIC TOPICAL ×2 (10:33→23:16)
[2018-08-22] MEDS: Enoxaparin 30 MG/0.3 ML Syringe SC (10:34)
[2018-08-22 12:31] LABS: Bedside Glucose 127 mg/dL (70-110)
--- NOTE | 2018-08-22 13:05 | PCM.PROGNOTE ---
<Aftab Lopez - Last Filed: 08/22/18 13:05> Patient Problems: Active and Suspected Problems Hypotension (Acute) Severe sepsis (Acute) Urinary tract infection (Acute) Acute prerenal azotemia (Acute) Renal insufficiency, mild (Acute) Elevated liver enzymes (Acute) Generalized weakness (Acute) Subjective: Pt resting comfortably in chair at bedside c/o lower back pain. No fever/chills. No dysuria. No SOB/cough. Pt plans to go home with [facility]. - Physical Exam General: Alert, Oriented x3, Cooperative HEENT: Atraumatic, PERRLA, EOMI, Normocephalic Neck: Supple, No JVD, Negative Carotid Bruits Lungs: Clear to auscultation, Normal air movement Cardiovascular: Regular rate, No murmurs Abdomen: Bowel Sounds Present, Soft, Non Tender Extremities: No edema, Capillary Refill Less than 3 Seconds Skin: No rashes, No breakdown Musculoskeletal: No Tenderness to Palpation of Joints or Extremities Neurological: Cranial nerves II-XII grossly intact Psych/Mental Status: Normal Affect, Appropriate, Alert and oriented to time, place, person, mood and affect Vital Signs Temp Pulse Resp BP Pulse Ox 98.1 F 65 16 146/45 H 99 08/22/18 08:05 08/22/18 08:05 08/22/18 08:05 08/22/18 08:05 08/22/18 08:05 Oxygen Delivery Method Room Air Weight: 203 lb 14.841 oz Body Mass Index (BMI) 33.9 Intake and Output for Last 24 Hours 08/20/18 08/21/18 08/22/18 23:59 23:59 23:59 Intake Total 3768 / 3768 2070 / 2070 Output Total 2200 / 2200 2125 / 2125 Balance 1568 / 1568 -55 / -55 Laboratory Tests Past 24 Hrs 08/21/18 08/22/18 08/22/18 14:55 05:30 05:30 WBC 13.5 H RBC 3.66 L Hgb 10.0 L Hct 31.4 L MCV 85.8 MCH 27.3 MCHC 31.8 L RDW 14.1 RDW Differential 44.2 H Plt Count 223 MPV 9.5 Immature Gran % (Auto) 0.300 Neut % (Auto) 78.6 H Lymph % (Auto) 12.3 L [place] % (Auto) 6.3 Eos % (Auto) 2.4 Baso % (Auto) 0.1 Absolute Neuts (auto) 10.6 H Absolute Lymphs (auto) 1.66 Total Counted Not Reportable Sodium 143 Potassium 3.4 L Chloride 110 H Carbon Dioxide 26.0 Anion Gap 7 BUN 25 H Creatinine 0.61 Estim Creat Clear Calc 39.03 Est GFR (MDRD) Af Amer 120 Est GFR (MDRD) Non-Af 99 BUN/Creatinine Ratio 40.8 H Glucose 103 Lactic Acid 2.8 H Calcium 8.5 POC Glucose 08/22/18 08/22/18 08/21/18 12:16 06:42 21:20 POC Glucose 127 H 91 204 H 08/21/18 16:15 POC Glucose 239 H Medical Necessity - Tobacco Use Smoking Status: Never smoker Assessment/Plan All Active Problems Hypotension (Acute) Severe sepsis (Acute) Urinary tract infection (Acute) Acute prerenal azotemia (Acute) Renal insufficiency, mild (Acute) Elevated liver enzymes (Acute) Generalized weakness (Acute) Shoulder pain, left (Resolved) Fecal impaction of colon (Resolved) Abdominal pain (Resolved) Intractable nausea and vomiting (Resolved) Fall (Resolved) Abrasion of anterior lower leg (Resolved) Rib pain on left side (Resolved) History of ovarian cancer (Resolved) 1. Acute severe sepsis 2/2 UTI - prior cultures with pansensitive E coli, Stenotrophomonas maltophilia resistant to levaquin albeit small growth, and MRSA with large growth. Continue meropenem for coverage of stenotrophomonas, vanc for MRSA. Await cultures. WBC improved. Pt comfortable and asymptomatic. -ID consult. 2. Acute kidney injury-secondary to UTI and dehydration-improving. Hold nephrotoxic agents. Resolved. 3. Type 2 diabetes with obesity-hold metformin, sliding scale insulin 4. Hypertension-stable 5. Underlying dementia-confirmed with family she has increased forgetfulness, will have PT OT evaluate her while she lives here. 6. Hypothyroidism-Synthroid DVT prophylaxis: Lovenox Discharge planning: PT OT eval's, wait for urine cultures, voiding trial prior to discharge This patient was seen by Aftab Lopez PA-C under the supervision of Doctor Alan <Maurice Phillips - Last Filed: 08/22/18 17:06> Subjective: Patient has history of recurrent UTI. MRSA, more than 100,000 colonies and stenotrophomonas, 11,000-25,000 units UTI as per culture on 08/17/2018. Patient has Mora catheter. Patient has difficulty making to bathroom with history of urgency and incontinence. Patient seen by ID - Physical Exam General: Alert, Oriented x3, Cooperative HEENT: Atraumatic, PERRLA, EOMI, Normocephalic Neck: Supple, No JVD, Negative Carotid Bruits Lungs: Clear to auscultation, No rhonchi, No wheeze, No rales, Diminished Cardiovascular: Regular rate, Regular Rhythm, Normal S1, Normal S2, No murmurs Abdomen: Bowel Sounds Present, Soft, Non Tender, Non-Distended Extremities: No edema, Capillary Refill Less than 3 Seconds Skin: No rashes, No breakdown Musculoskeletal: No Tenderness to Palpation of Joints or Extremities, Arthritic Changes Neurological: Cranial nerves II-XII grossly intact, Deep Tendon Reflexes 2+/4 and Symmetrical, Neuro grossly intact Psych/Mental Status: Normal Affect, Appropriate Vital Signs Temp Pulse Resp BP Pulse Ox 97.9 F 67 14 150/57 H 96 08/22/18 14:05 08/22/18 15:00 08/22/18 14:05 08/22/18 14:05 08/22/18 14:05 Oxygen Delivery Method Room Air Weight: 203 lb 14.841 oz Body Mass Index (BMI) 33.9 Intake and Output for Last 24 Hours 08/20/18 08/21/18 08/22/18 23:59 23:59 23:59 Intake Total 3768 / 3768 2070 / 2070 Output Total 2200 / 2200 2125 / 2125 Balance 1568 / 1568 -55 / -55 Laboratory Tests Past 24 Hrs 08/22/18 08/22/18 05:30 05:30 WBC 13.5 H RBC 3.66 L Hgb 10.0 L Hct 31.4 L MCV 85.8 MCH 27.3 MCHC 31.8 L RDW 14.1 RDW Differential 44.2 H Plt Count 223 MPV 9.5 Immature Gran % (Auto) 0.300 Neut % (Auto) 78.6 H Lymph % (Auto) 12.3 L [place] % (Auto) 6.3 Eos % (Auto) 2.4 Baso % (Auto) 0.1 Absolute Neuts (auto) 10.6 H Absolute Lymphs (auto) 1.66 Total Counted Not Reportable Sodium 143 Potassium 3.4 L Chloride 110 H Carbon Dioxide 26.0 Anion Gap 7 BUN 25 H Creatinine 0.61 Estim Creat Clear Calc 39.03 Est GFR (MDRD) Af Amer 120 Est GFR (MDRD) Non-Af 99 BUN/Creatinine Ratio 40.8 H Glucose 103 Calcium 8.5 POC Glucose 08/22/18 08/22/18 08/21/18 12:16 06:42 21:20 POC Glucose 127 H 91 204 H Assessment/Plan This patient was seen in conjunction with Aftab ABEBE. I have independently interviewed and examined the patient and reviewed pertinent history, examination findings, laboratory and plan of management. I have reviewed the note and agree with the documented findings with the few additional points. In brief, patient is admitted for generalized weakness and was started on Keflex on 08/17 after diagnosis of UTI in ER. Patient came back to hospital on 08/20 and the urine culture showed more than 100,000 colonies of staph aureus, MRSA and stenotrophomonas. Patient also had leukocytosis about 19,000. Patient was found to have an allergic rash mostly secondary to Keflex and was put on oral prednisone. Initially patient was started on IV meropenem and vancomycin. Patient seen by ID and antibiotic changed to vancomycin and cefepime. Patient has acute kidney injury secondary to UTI and prerenal etiology. Acute kidney has resolved. Creatinine 1.4-0.6. Other comorbidities include type 2 diabetes mellitus, hypertension, dementia and hypothyroidism. I have discussed my assessment with Aftab ABEBE and orders have been reviewed. Code Visit Inpatient E&M: 04165 Subs Hosp L3
--- NOTE | 2018-08-22 14:25 | CON.PCM_ITS ---
Problem List (1) Urinary tract infection Status: Acute Reason for Consult: uti Consulted by: Dr. Phillips History of Present Illness: The patient is a 83 year old F with h/o recurrent uti, brought to ED 08/17 with altered mental status, some abd pain. CT showed moderate stool, sent out on keflex for possible uti. Denies any dysuria. No fever. Came back to ED 08/21 with rash, hypotension. Given vanc/aztreonam, prednisone. Ucx from 08/17 with MRSA and steno. Admitted on vanc/levi. Rash has resolved. Full ROS performed and neg except as noted above. - Medical History Past Medical History (Chronic Problems): Chronic Problems Osteoarthritis (Chronic) History of diverticulosis (Chronic) History of hyperlipidemia (Chronic) Obesity (Chronic) HTN (hypertension) (Chronic) DM (diabetes mellitus), type 2 (Chronic) Macular degeneration (Chronic) Hypothyroidism (Chronic) History of rheumatic fever (Chronic) Allergies/Adverse Reactions: Allergies amoxicillin [From Augmentin] Allergy (Verified 08/20/18 23:10) Itching cefdinir Allergy (Verified 08/20/18 23:10) Rash clavulanic acid [From Augmentin] Allergy (Verified 08/20/18 23:10) Itching doxycycline calcium [From Vibramycin] Allergy (Verified 08/20/18 23:10) Unknown doxycycline hyclate [From Vibramycin] Allergy (Verified 08/20/18 23:10) Unknown doxycycline monohydrate [From Vibramycin] Allergy (Verified 08/20/18 23:10) Unknown fluticasone Allergy (Verified 08/20/18 23:10) Unknown influenza virus vaccine, specific [Influenza Virus Vacc,Specific] Allergy (Verified 08/20/18 23:10) Swelling pneumococcal vaccine [Pneumococcal Vaccine] Allergy (Verified 08/20/18 23:10) Rash promethazine HCl [From Phenergan] Allergy (Verified 08/20/18 23:10) Unknown tetracycline [Tetracycline] Allergy (Verified 08/20/18 23:10) Unknown metronidazole [From Flagyl] Adverse Reaction (Verified 08/20/18 23:10) Unknown sulfamethoxazole [From Bactrim] Adverse Reaction (Verified 08/20/18 23:10) Rash trimethoprim [From Bactrim] Adverse Reaction (Verified 08/20/18 23:10) Rash Home Medications: Ambulatory Orders Medication Instructions Recorded Aspirin [Aspirin, Baby] 81 mg PO DAILY@0800 12/10/13 Hydrochlorothiazide [Hctz] 25 mg PO DAILY 12/10/13 Levothyroxine Sodium [Levoxyl] 100 mcg PO DAILY 12/10/13 Losartan Potassium [Cozaar] 100 mg PO DAILY 12/10/13 Polyethylene Glycol 3350 [Miralax] 17 gm PO DAILY 12/10/13 glyBURIDE [Micronase] 5 mg PO BIDCM 12/10/13 metFORMIN HCl [Glucophage] 500 mg PO TIDCM 12/10/13 Loteprednol Etabonate [Lotemax] 1 drop LEFT EYE BID 04/22/14 Vit C/E/Zn/Coppr/Lutein/Zeaxan 1,000 mg PO DAILY 04/22/14 [Preservision Areds 2 Softgel] Acetaminophen [Tylenol] 325 mg PO Q6H PRN PRN 08/25/14 Oxybutynin Chloride [Ditropan Xl] 10 mg PO DAILY 08/25/14 Betamethasone Valerate [Valisone 0.1 applicatio TOPICAL BID 08/20/18 Lotion] Clindamycin HCl 150 cap PO 4X/DAY 08/20/18 Diclofenac Sodium [Voltaren] 4 g TOPICAL 4X/DAY 08/20/18 Venlafaxine HCl 75 mg PO DAILY 08/20/18 prednisoLONE eye drops (5 mL) 1 drop RIGHT EYE 4X/DAY 08/21/18 [Pred Forte eye drops (5 mL)] - Social History Tobacco Use: non-smoker Vital Signs Temp Pulse Resp BP Pulse Ox 97.9 F 65 14 150/57 H 96 08/22/18 14:05 08/22/18 14:05 08/22/18 14:05 08/22/18 14:05 08/22/18 14:05 Oxygen Delivery Method Room Air Weight: 92.5 kg Body Mass Index (BMI) 33.9 Laboratory Tests Past 24 Hrs 08/21/18 08/22/18 08/22/18 14:55 05:30 05:30 WBC 13.5 H RBC 3.66 L Hgb 10.0 L Hct 31.4 L MCV 85.8 MCH 27.3 MCHC 31.8 L RDW 14.1 RDW Differential 44.2 H Plt Count 223 MPV 9.5 Immature Gran % (Auto) 0.300 Neut % (Auto) 78.6 H Lymph % (Auto) 12.3 L Rawlins % (Auto) 6.3 Eos % (Auto) 2.4 Baso % (Auto) 0.1 Absolute Neuts (auto) 10.6 H Absolute Lymphs (auto) 1.66 Total Counted Not Reportable Sodium 143 Potassium 3.4 L Chloride 110 H Carbon Dioxide 26.0 Anion Gap 7 BUN 25 H Creatinine 0.61 Estim Creat Clear Calc 39.03 Est GFR (MDRD) Af Amer 120 Est GFR (MDRD) Non-Af 99 BUN/Creatinine Ratio 40.8 H Glucose 103 Lactic Acid 2.8 H Calcium 8.5 - Other Studies Radiology: [] reviewed Other Studies: [] Route of nutrition/ use of supplements: [] Nutritional Intake: [] IV Site: [] Mcintosh Catheter: [] - Physical Exam General: Alert, Oriented x3, Cooperative, No apparent distress HEENT: Atraumatic, PERRLA, EOMI Neck: Supple, No Nodes Lungs: Clear to auscultation, Normal air movement Cardiovascular: Regular rate, Regular Rhythm Abdomen: Soft, Non Tender, Non-Distended Extremities: No edema Skin: No rashes IV Site: Peripheral Musculoskeletal: No Tenderness to Palpation of Joints or Extremities Neurological: Cranial nerves II-XII grossly intact - Assessment/Plan Antibiotics: [] Assessment/Plan: [] Active and Suspected Problems Hypotension (Acute) Severe sepsis (Acute) Urinary tract infection (Acute) Acute prerenal azotemia (Acute) Renal insufficiency, mild (Acute) Elevated liver enzymes (Acute) Generalized weakness (Acute) MRSA complicated uti - denies chronic mcintosh. Bcx and ucx here pending. UA without inflammation. Had rash with keflex, now improved. Will cover with vanc/cefepime while cxs pending; not clear if there is any true infection. Mental status and wbc improved. Will follow, thank you.
[2018-08-22] MEDS: Insulin Lispro 100 UNIT/ML INSULN.PEN SQ ×2 (17:07→23:19)
[2018-08-22 17:16] LABS: Bedside Glucose 259 mg/dL (70-110)
[2018-08-22] MEDS: Acetaminophen 325 MG Tablet 650 MG PO (18:56)
[2018-08-22] MEDS: Venlafaxine HCl 75 MG Tablet PO (23:16)
[2018-08-22] MEDS: Aspirin 81 MG TAB.CHEW PO (23:16)
[2018-08-22] MEDS: 0.9% NaCl Peripheral Flush Adult/Peds IV (23:20)
[2018-08-23] VITALS (7 sets, daily range): BP systolic 156–205; BP diastolic 65–88; PULSE 61–70; RESP 15–18; TEMP 36.6; O2SAT 97–99
[2018-08-23 00:36] LABS: Bedside Glucose 196 mg/dL (70-110)
--- NOTE | 2018-08-23 01:45 | PCM.PN.BLA ---
Progress Note BP rising. BRADY resolved. Resumed HCTZ and cozaar.
[2018-08-23] MEDS: Losartan Potassium 100 MG Tablet PO (02:28)
[2018-08-23] MEDS: hydrOXYzine PAM 25 MG Capsule 50 MG PO ×3 (02:28→15:36)
[2018-08-23] MEDS: hydroCHLOROthiazide 25 MG Tablet PO (02:28)
[2018-08-23] MEDS: Levothyroxine 100 MCG Tablet PO (05:20)
[2018-08-23] MEDS: Acetaminophen 325 MG Tablet 650 MG PO ×2 (05:21→14:08)
[2018-08-23 06:15] LABS: Anion Gap 9 (5-15); BUN 18 mg/dL (7-18); BUN/Creat Ratio 30.4 RATIO (10-20); Calcium,Total 9.2 mg/dL (8.5-10.1); Chloride 107 mmol/L (98-107); Creatinine, Serum 0.59 mg/dL (0.55-1.02); EST Glomerular Filtration Rate 103 mL/min (>60); Est Glom Filt Rate - Afr Amer 125 mL/min (>60); Estimated Creatinine Clearance 39.03 ml/min; Glucose 133 mg/dL (74-106); Potassium 3.9 mmol/L (3.5-5.1); Sodium Level 141 mmol/L (136-145)
[2018-08-23 07:05] LABS: Bedside Glucose 124 mg/dL (70-110)
[2018-08-23] MEDS: predniSONE 20 MG Tablet PO (08:55)
[2018-08-23] MEDS: Lidocaine 5% Patch 1 PATCH TOPICAL (09:55)
[2018-08-23] MEDS: Enoxaparin 30 MG/0.3 ML Syringe SC (09:56)
[2018-08-23] MEDS: Nystatin Ointment 1 APPLIC TOPICAL (09:57)
[2018-08-23] MEDS: prednisoLONE eye drops (1 mL) 1 DROP OPTH.BTL 1 DRP RIGHT EYE (09:57)
[2018-08-23] MEDS: 0.9% NaCl Peripheral Flush Adult/Peds IV (10:06)
[2018-08-23 11:37] LABS: Vancomycin, Trough Level 27.6 ug/mL (5.0-15.0)
[2018-08-23] MEDS: tiZANidine HCl 2 MG Tablet PO (11:42)
[2018-08-23] MEDS: Naproxen 250 MG Tablet PO (11:42)
[2018-08-23] MEDS: Insulin Lispro 100 UNIT/ML INSULN.PEN SQ (11:47)
--- NOTE | 2018-08-23 12:03 | PHA.PHARE_ITS ---
<Tonya Gann - Last Filed: 08/23/18 11:53> Consult Pharmacy has been consulted to manage selected antiobiotic: Vancomycin Type of Consult: Follow-up Suspected Infection: Other Prior Doses of Antibiotics Received/Current Regimen: VANCOMYCIN 1250MG iv q24HRS: 08/23/18 @1005 Labs: Sodium 141 mmol/L (136-145) 08/23/18 05:52 Potassium 3.9 mmol/L (3.5-5.1) 08/23/18 05:52 Chloride 107 mmol/L (98-107) 08/23/18 05:52 Carbon Dioxide 25.0 mmol/L (21.0-32.0) 08/23/18 05:52 Anion Gap 9 (5-15) 08/23/18 05:52 BUN 18 mg/dL (7-18) 08/23/18 05:52 Creatinine 0.59 mg/dL (0.55-1.02) 08/23/18 05:52 Est GFR (MDRD) Af Amer 125 mL/min (>60) 08/23/18 05:52 Est GFR (MDRD) Non-Af 103 mL/min (>60) 08/23/18 05:52 BUN/Creatinine Ratio 30.4 RATIO (10-20) H 08/23/18 05:52 Glucose 133 mg/dL (74-106) H 08/23/18 05:52 Vancomycin Trough 27.6 ug/mL (5.0-15.0) H 08/23/18 10:50 Microbiology: Microbiology 08/20/18 19:27 Blood Culture (Wb) - Right Hand Blood Culture - Preliminary No growth in 48 hours. 08/20/18 18:40 Blood Culture (Wb) - Right Forearm Blood Culture - Preliminary No growth in 48 hours. 08/20/18 18:30 Urine Catheter - Mora Urine Culture - Final Culture exhibits no growth. Goal Trough: 10-15 mcg/mL Pharmacy Plan for Drug Dosing: The patient had a trough come back which resulted in a level of 27.6 (goal 10-1 5). Upon further investigation, it was noted that the medication administration time this morning was 08/23/18 @1005, and the trough was taken 08/23/18 @1050. Since the medication was hanging prior to the trough, this likely explains the elevated trough. Will plan to order a random trough prior to the next dose to evaluate dosing at that time. PLAN/RECOMMENDATIONS 1. Vancomycin 1250mg IV Q24h 2. Trough scheduled 08/24/18 @1030 to assess dosing 3. Pharmacy Service will continue to monitor and adjust dosing as required. <Maurice Phillips - Last Filed: 08/23/18 14:27> Consult Labs: Sodium 141 mmol/L (136-145) 08/23/18 05:52 Potassium 3.9 mmol/L (3.5-5.1) 08/23/18 05:52 Chloride 107 mmol/L (98-107) 08/23/18 05:52 Carbon Dioxide 25.0 mmol/L (21.0-32.0) 08/23/18 05:52 Anion Gap 9 (5-15) 08/23/18 05:52 BUN 18 mg/dL (7-18) 08/23/18 05:52 Creatinine 0.59 mg/dL (0.55-1.02) 08/23/18 05:52 Est GFR (MDRD) Af Amer 125 mL/min (>60) 08/23/18 05:52 Est GFR (MDRD) Non-Af 103 mL/min (>60) 08/23/18 05:52 BUN/Creatinine Ratio 30.4 RATIO (10-20) H 08/23/18 05:52 Glucose 133 mg/dL (74-106) H 08/23/18 05:52 Vancomycin Trough 27.6 ug/mL (5.0-15.0) H 08/23/18 10:50 Microbiology: Microbiology 08/20/18 19:27 Blood Culture (Wb) - Right Hand Blood Culture - Preliminary No growth in 48 hours. 08/20/18 18:40 Blood Culture (Wb) - Right Forearm Blood Culture - Preliminary No growth in 48 hours. 08/20/18 18:30 Urine Catheter - Mora Urine Culture - Final Culture exhibits no growth. Pharmacy Plan for Drug Dosing: Pharmacy Service will continue to monitor and adjust dosing as required.
--- NOTE | 2018-08-23 12:17 | CASEMGMT ---
Per physician patient wants to go to a [facility] at d/c. IRINA met with patient and she said she is not doing well enough to go home and would like to go to a [facility]. She told SW to talk with her daughter Josey to figure out where she will go. IRINA called patient's daughter, Josey and let her know above. She agreed and felt patient should go to a SNF. She said they would like [facility] as patient's is there residential. IRINA told her SW will work on this and try to make it happen today, but if not it may not happen until Saturday. IRINA told her SW will let her know. IRINA called [facility] and asked that they have Christina call SW. Received call from Christina at [facility] regarding referral. She said SW can fax referral. She said if they are able to accept her they can take her today. IRINA faxed referral. Await response. Clara POTTER
[2018-08-23 13:15] LABS: Bedside Glucose 217 mg/dL (70-110)
--- NOTE | 2018-08-23 13:30 | PCM.EXTCARCO ---
- Diet 08/20/18 23:00 Diet: Cardiac: Calorie-Controlled Food consistency:: Regular Liquid Consistency:: Regular/Thin How many daily calories?: 1800 calorie - Routine Orders/Code Status Suppository Type: Dulcolax 10mg Suppository Frequency: Daily PRN Routine Lab Work: CBC - 5 days, BMP - 5 days - Therapies Physical Therapy: Eval and Treat Occupational Therapy: Eval and Treat - Problem/Diagnosis (1) Drug reaction Status: Acute Current Visit: Yes (2) BRADY (acute kidney injury) Status: Acute Current Visit: Yes (3) Urinary retention Status: Acute Current Visit: Yes (4) Dementia Status: Chronic Current Visit: Yes (5) Generalized weakness Status: Chronic Current Visit: Yes (6) Osteoarthritis Status: Chronic Current Visit: No (7) History of diverticulosis Status: Chronic Current Visit: No (8) History of hyperlipidemia Status: Chronic Current Visit: No (9) Obesity Status: Chronic Current Visit: No (10) HTN (hypertension) Status: Chronic Current Visit: No (11) DM (diabetes mellitus), type 2 Status: Chronic Current Visit: Yes (12) Macular degeneration Status: Chronic Current Visit: No (13) Hypothyroidism Status: Chronic Current Visit: No - Allergies/Procedures Done in Hospital Allergies/Adverse Reactions: Allergies amoxicillin [From Augmentin] Allergy (Verified 08/20/18 23:10) Itching cefdinir Allergy (Verified 08/20/18 23:10) Rash clavulanic acid [From Augmentin] Allergy (Verified 08/20/18 23:10) Itching doxycycline calcium [From Vibramycin] Allergy (Verified 08/20/18 23:10) Unknown doxycycline hyclate [From Vibramycin] Allergy (Verified 08/20/18 23:10) Unknown doxycycline monohydrate [From Vibramycin] Allergy (Verified 08/20/18 23:10) Unknown fluticasone Allergy (Verified 08/20/18 23:10) Unknown influenza virus vaccine, specific [Influenza Virus Vacc,Specific] Allergy (Verified 08/20/18 23:10) Swelling pneumococcal vaccine [Pneumococcal Vaccine] Allergy (Verified 08/20/18 23:10) Rash promethazine HCl [From Phenergan] Allergy (Verified 08/20/18 23:10) Unknown tetracycline [Tetracycline] Allergy (Verified 08/20/18 23:10) Unknown metronidazole [From Flagyl] Adverse Reaction (Verified 08/20/18 23:10) Unknown sulfamethoxazole [From Bactrim] Adverse Reaction (Verified 08/20/18 23:10) Rash trimethoprim [From Bactrim] Adverse Reaction (Verified 08/20/18 23:10) Rash Procedures: None - Type of Care/Length of Stay Estimated LOS: Convalescent Care Less Than 30 days Type of Care Needed: Skilled Rehab Potential: Fair Prognosis: Fair - Additional Orders/Day of Discharge Day of Discharge: 08/23/18 - Follow Up Care Primary Care Physician: Da Ocampo MD [Primary Care Provider] - Please follow up with your Primary Care Physician in: 1-2 weeks
--- NOTE | 2018-08-23 13:34 | PCM.DC.SUM ---
<Aftab Lopez - Last Filed: 08/23/18 13:34> Discharge Date and Diagnosis - Problem List Patient Problems: Active and Suspected Problems BRADY (acute kidney injury) (Acute) Urinary retention (Acute) Drug reaction (Acute) Hypotension (Acute) Severe sepsis (Acute) Urinary tract infection (Acute) Acute prerenal azotemia (Acute) Renal insufficiency, mild (Acute) Elevated liver enzymes (Acute) Date of Admission: 08/20/18 Date of Discharge: 08/23/18 - Primary Discharge Diagnosis Active and Suspected Problems BRADY 2/2 dehydration Sepsis/UTI ruled out Drug reaction to keflex T2DM with obesity Dementia Hypothyroidism - Secondary Discharge Diagnosis Chronic Problems Dementia (Chronic) Generalized weakness (Chronic) Osteoarthritis (Chronic) History of diverticulosis (Chronic) History of hyperlipidemia (Chronic) Obesity (Chronic) HTN (hypertension) (Chronic) DM (diabetes mellitus), type 2 (Chronic) Macular degeneration (Chronic) Hypothyroidism (Chronic) History of rheumatic fever (Chronic) Hospital Course and Treatment Consults: DENNIS - [place] Operations: None Procedures: None Summary of Care Provided: Hospital Course: The patient is a 83 year old F with past medical history of dementia, hypothyroidism, type 2 diabetes hypertension, anxiety and depression, osteoarthritis, who presented to the emergency room with increased weakness. She had recently been treated with Keflex for urinary tract infection, prior cultures that showed stenotrophomonas and MRSA. In the emergency room she had an elevated white count, she developed a rash since starting Keflex, she had lactic acidosis, and borderline urinalysis. She was admitted with concerns for sepsis secondary to UTI. Urine culture was obtained. She was started on vancomycin and meropenem to cover drug-resistant organisms as above. She had acute kidney injury. She had fluctuating mental status and her family did admit that she has been having issues with forgetfulness. She was given IV fluids. Her nephrotoxic agents were held. ID was consulted and abx were changed to empiric vanc and cefipime. She had no growth on her urine culture so abx were discontinued. ID felt this presentation was more likely a result of her reaction to keflex. The pt did not report dysuria throughout stay. She did have urinary retention and a temporary mcintosh was placed, discontinued prior to DC. Her held antihypertensives were resumed as her renal function normalized and her BP was increasing. She had fluctuant mental status while here, weakness, and lives alone. Her and her family desired SNF placement. This was arranged and she was DCd to SNF in stable condition. Follow up with PCP in 1-2 weeks. Please follow up with CBC/BMP in 5 days. This patient was seen by Aftab Lopez PA-C under the supervision of Dr. Phillips[] Patient Problems: Active and Suspected Problems BRADY (acute kidney injury) (Acute) Urinary retention (Acute) Drug reaction (Acute) Hypotension (Acute) Severe sepsis (Acute) Urinary tract infection (Acute) Acute prerenal azotemia (Acute) Renal insufficiency, mild (Acute) Elevated liver enzymes (Acute) - Physical Exam General: Alert, Oriented x3, Cooperative HEENT: Atraumatic, PERRLA, EOMI, Normocephalic Neck: Supple, No JVD, Negative Carotid Bruits Lungs: Clear to auscultation, Normal air movement Cardiovascular: Regular rate, No murmurs Abdomen: Bowel Sounds Present, Soft, Non Tender Extremities: No edema, Capillary Refill Less than 3 Seconds Skin: No rashes, No breakdown Musculoskeletal: No Tenderness to Palpation of Joints or Extremities Neurological: Cranial nerves II-XII grossly intact Psych/Mental Status: Normal Affect, Appropriate Vital Signs Temp Pulse Resp BP Pulse Ox 97.9 F 70 18 165/86 H 98 08/23/18 09:53 08/23/18 11:21 08/23/18 09:53 08/23/18 09:53 08/23/18 09:53 Oxygen Delivery Method Room Air Weight: 203 lb 14.841 oz Body Mass Index (BMI) 33.9 Intake and Output for Last 24 Hours 08/21/18 08/22/18 08/23/18 23:59 23:59 23:59 Intake Total 3768 / 3768 2638 / 2638 1373 / 1373 Output Total 2200 / 2200 3425 / 3425 3200 / 3200 Balance 1568 / 1568 -787 / -787 -1827 / -1827 Microbiology Past 72 Hours 08/20/18 19:27 Blood Culture - Preliminary Blood Culture (Wb) - Right Hand No growth in 48 hours. 08/20/18 18:40 Blood Culture - Preliminary Blood Culture (Wb) - Right Forearm No growth in 48 hours. 08/20/18 18:30 Urine Culture - Final Urine Catheter - Mcintosh Culture exhibits no growth. Laboratory Tests Past 24 Hrs 08/23/18 08/23/18 05:52 10:50 Sodium 141 Potassium 3.9 Chloride 107 Carbon Dioxide 25.0 Anion Gap 9 BUN 18 Creatinine 0.59 Estim Creat Clear Calc 39.03 Est GFR (MDRD) Af Amer 125 Est GFR (MDRD) Non-Af 103 BUN/Creatinine Ratio 30.4 H Glucose 133 H Calcium 9.2 Vancomycin Trough 27.6 H POC Glucose 08/23/18 08/23/18 08/22/18 11:41 06:36 23:19 POC Glucose 217 H 124 H 196 H 08/22/18 17:03 POC Glucose 259 H Discharge Diet: Low fat/ Low Cholesterol, 1800 Calorie Control Diet, 2000 mg Sodium Diet Discharge Activity: Return to Normal Activity Home Medications: Medications to take at Discharge Aspirin [Aspirin, Baby] 81 mg PO DAILY@0800 12/10/13 Hydrochlorothiazide [Hctz] 25 mg PO DAILY 12/10/13 Levothyroxine Sodium [Levoxyl] 100 mcg PO DAILY 12/10/13 Losartan Potassium [Cozaar] 100 mg PO DAILY 12/10/13 Polyethylene Glycol 3350 [Miralax] 17 gm PO DAILY 12/10/13 glyBURIDE [Micronase] 5 mg PO BIDCM 12/10/13 metFORMIN HCl [Glucophage] 500 mg PO TIDCM 12/10/13 Loteprednol Etabonate [Lotemax] 1 drop LEFT EYE BID 04/22/14 Vit C/E/Zn/Coppr/Lutein/Zeaxan [Preservision Areds 2 Softgel] 1,000 mg PO DAILY 04/22/14 Acetaminophen [Tylenol] 325 mg PO Q6H PRN PRN 08/25/14 Oxybutynin Chloride [Ditropan Xl] 10 mg PO DAILY 08/25/14 Diclofenac Sodium [Voltaren] 4 g TOPICAL 4X/DAY 08/20/18 Venlafaxine HCl 75 mg PO DAILY 08/20/18 prednisoLONE eye drops (5 mL) [Pred Forte eye drops (5 mL)] 1 drop RIGHT EYE 4X/DAY 08/21/18 Lidocaine [Lidoderm Patch] 1 patch TOPICAL DAILY patch 08/23/18 Nystatin [Mycostatin] 1 applic TOPICAL BID tube 08/23/18 Primary Care Physician: Da Ocampo MD [Primary Care Provider] - Please follow up with your Primary Care Physician in: 1-2 weeks Disposition: Retirement facility Minutes spent on discharge:: 35 Patient Condition:: Stable Medical Necessity - Tobacco Use Smoking Status: Never smoker Meaningful Use Info Meaningful Use Diagnoses (Choose all that apply): None applicable <Maurice Phillips - Last Filed: 08/23/18 14:27> Discharge Date and Diagnosis - Primary Discharge Diagnosis Active and Suspected Problems BRADY (acute kidney injury) (Acute) Urinary retention (Acute) Drug reaction (Acute) Hypotension (Acute) Severe sepsis (Acute) Urinary tract infection (Acute) Acute prerenal azotemia (Acute) Renal insufficiency, mild (Acute) Elevated liver enzymes (Acute) - Secondary Discharge Diagnosis Chronic Problems Dementia (Chronic) Generalized weakness (Chronic) Osteoarthritis (Chronic) History of diverticulosis (Chronic) History of hyperlipidemia (Chronic) Obesity (Chronic) HTN (hypertension) (Chronic) DM (diabetes mellitus), type 2 (Chronic) Macular degeneration (Chronic) Hypothyroidism (Chronic) History of rheumatic fever (Chronic) Hospital Course and Treatment Summary of Care Provided: [] This patient was seen in conjunction with Aftab ABEBE. I have independently interviewed and examined the patient and reviewed pertinent history, examination findings, laboratory and plan of management. I have reviewed the note and agree with the documented findings with the few additional points. In brief, patient is admitted for generalized weakness and was started on Keflex on 08/17 after diagnosis of UTI in ER. Patient came back to hospital on 08/20 and the urine culture from 08/17 2018 showed more than 100,000 colonies of staph aureus, MRSA and stenotrophomonas. Patient also had leukocytosis about 19,000. Patient was found to have an allergic rash mostly secondary to Keflex and was put on oral prednisone. Initially patient was started on IV meropenem and vancomycin. Patient seen by ID and antibiotic changed to vancomycin and cefepime. Later on, urine culture shows no growth. Blood cultures negative for more than 48 hours. Antibiotic was discontinued. It was thought patient had generalized weakness and allergic rash secondary to Keflex. Patient has acute kidney injury secondary to UTI and prerenal etiology. Acute kidney has resolved. Creatinine 1.4-0.6. Other comorbidities include type 2 diabetes mellitus, hypertension, dementia and hypothyroidism. Discharge medication reconciliation done. Discharge follow-up instructions completed. Discharge process discussed with the patient and all questions were answered to patient's satisfaction.. Total time spent, exact 35 minutes on discharge meds reconciliation, examination, review of imaging and blood test and discussion with the patient on follow-up instructions. I have discussed my assessment with Aftab ABEBE and orders have been reviewed. Subjective: Mcintosh catheter was removed. Patient denies burning micturition. Had a spontaneously voided. Discussed with ID and no need for antibiotic. Patient most probably had an allergic reaction. Objective: General: Alert, Oriented x3, Cooperative HEENT: Atraumatic, PERRLA, EOMI, Normocephalic Neck: Supple, No JVD, Negative Carotid Bruits Lungs: Clear to auscultation, No rhonchi, No wheeze, No rales, air entry diminished bilaterally lung bases Cardiovascular: Regular rate, Regular Rhythm, Normal S1, Normal S2, No murmurs Abdomen: Bowel Sounds Present, Soft, Non Tender, Non-Distended. Extremities: No edema, Capillary Refill Less than 3 Seconds Skin: No rashes, No breakdown Musculoskeletal: No Tenderness to Palpation of Joints or Extremities, Arthritic Changes Neurological: Cranial nerves II-XII grossly intact, Deep Tendon Reflexes 2+/4 and Symmetrical, Neuro grossly intact Psych/Mental Status: Normal Affect, Appropriate - Physical Exam Vital Signs Temp Pulse Resp BP Pulse Ox 97.9 F 70 18 165/86 H 98 08/23/18 09:53 08/23/18 11:21 08/23/18 09:53 08/23/18 09:53 08/23/18 09:53 Oxygen Delivery Method Room Air Weight: 203 lb 14.841 oz Body Mass Index (BMI) 33.9 Intake and Output for Last 24 Hours 08/21/18 08/22/18 08/23/18 23:59 23:59 23:59 Intake Total 3768 / 3768 2638 / 2638 1373 / 1373 Output Total 2200 / 2200 3425 / 3425 3200 / 3200 Balance 1568 / 1568 -787 / -787 -1827 / -1827 Microbiology Past 72 Hours 08/20/18 19:27 Blood Culture - Preliminary Blood Culture (Wb) - Right Hand No growth in 48 hours. 08/20/18 18:40 Blood Culture - Preliminary Blood Culture (Wb) - Right Forearm No growth in 48 hours. 08/20/18 18:30 Urine Culture - Final Urine Catheter - Mcintosh Culture exhibits no growth. Laboratory Tests Past 24 Hrs 08/23/18 08/23/18 05:52 10:50 Sodium 141 Potassium 3.9 Chloride 107 Carbon Dioxide 25.0 Anion Gap 9 BUN 18 Creatinine 0.59 Estim Creat Clear Calc 39.03 Est GFR (MDRD) Af Amer 125 Est GFR (MDRD) Non-Af 103 BUN/Creatinine Ratio 30.4 H Glucose 133 H Calcium 9.2 Vancomycin Trough 27.6 H POC Glucose 08/23/18 08/23/18 08/22/18 11:41 06:36 23:19 POC Glucose 217 H 124 H 196 H 08/22/18 17:03 POC Glucose 259 H Code Visit Inpatient E&M: 93760 Disch Hosp
--- NOTE | 2018-08-23 13:57 | CASEMGMT ---
[facility] can accept patient today. Completed convalescent on HENS. Faxed orders to [facility]. Called [facility] and arranged for patient to get picked up at 4p via cot. SW notified RN, escrow secretary, patient's daughter Josey, and Christina at [facility]. SW also notified patient, but she may not remember as she was sleeping and minimally acknowledged my message. Plan: d/c to [facility] under skilled level of care on a convalescent stay. [facility] transported her via cot. Clara DONALDSON MSW
--- NOTE | 2018-08-23 15:59 | NURSING ---
[facility] Knowles
== END 2018-08-23 16:35 | disposition skilled nursing facility (03) | DRG 683 ==
LOC: ED 21:47 → PCU 22:38
PROVIDERS: Physician Assistant; Student in an Organized Health Care Education/Training Program; Admitting Provider Internal Medicine; Emergency Provider Emergency Medicine; Family Provider Family Medicine; PCP Family Medicine; Referring Provider Internal Medicine; Visit Provider Internal Medicine
DX: N17.9 Acute kidney failure, unspecified (principal); E87.2 Acidosis; N39.0 Urinary tract infection, site not specified; I95.9 Hypotension, unspecified; E86.0 Dehydration; R74.8 Abnormal levels of other serum enzymes; R33.9 Retention of urine, unspecified; L27.0 Generalized skin eruption due to drugs and medicaments taken internally; T36.1X5A Adverse effect of cephalosporins and other beta-lactam antibiotics, initial encounter; Y92.9 Unspecified place or not applicable; E11.9 Type 2 diabetes mellitus without complications; I10 Essential (primary) hypertension; E03.9 Hypothyroidism, unspecified; F03.90 Unspecified dementia, unspecified severity, without behavioral disturbance, psychotic disturbance, mood disturbance, and anxiety; E78.5 Hyperlipidemia, unspecified; H35.30 Unspecified macular degeneration; M19.90 Unspecified osteoarthritis, unspecified site; E66.9 Obesity, unspecified; Z68.33 Body mass index [BMI] 33.0-33.9, adult; F32.9 Major depressive disorder, single episode, unspecified; F41.9 Anxiety disorder, unspecified; Z79.82 Long term (current) use of aspirin; Z79.84 Long term (current) use of oral hypoglycemic drugs; Z79.899 Other long term (current) drug therapy; Z88.0 Allergy status to penicillin; Z88.1 Allergy status to other antibiotic agents; Z88.2 Allergy status to sulfonamides; Z87.19 Personal history of other diseases of the digestive system; Z87.440 Personal history of urinary (tract) infections
CPT/HCPCS: 36415; 74176; 80048; 80053; 80202; 81001; 82962; 83605; 85025; 85610; 85730; 87040; 87077; 87086; 87088; 87186; 93005; 96365; 96375; 96376; 97162; 97166; 97530; 97535; 99284; 99285; J2185; J7030; J7040; J7050; P9612; A4216

== ENCOUNTER 2018-11-05 13:41 | Emergency (ER) | payer MEDICARE, OTHER, SELFPAY ==
[2018-08-20 23:05] VITALS: BMI 33.9
[2018-11-05 13:42] VITALS: BP 113/60; PULSE 74; RESP 16; TEMP 37; O2SAT 93; BMI 32.9
--- NOTE | 2018-11-05 14:05 | ED.VISSUMM ---
- ER Visit Summary Date of Service: 11/05/18 Chief Complaint: Right hand swelling and possible UTI History of Present Illness: The patient is a 83 F history of [id number] diabetes and vertigo. Patient states that she has had no urinary symptoms. But checked her urine with a test that she got from the store and thinks she might have a UTI. She denies any fever or dysuria. No hematuria. No urgency or frequency. She says that she has had asymptomatic UTIs before. Also last evening she had itching of her right hand and then started swelling. She denies any prior history. She does have a new soap at home but this is only involving her right hand. She denies any trouble swallowing or breathing. No wheezing. She does not remember being bit or stung by anything on her right hand. She did take some Benadryl for the itching. Physical Examination: Older female no acute distress. Vital signs are stable afebrile. HEENT exam is normal. Lips and tongue are normal. No trouble swallowing or breathing. No stridor. No drooling. Neck nontender. Lungs clear to auscultation. Heart regular rhythm no murmur. Abdomen soft and nontender. Patient moving all 4 extremities. Neurovascular intact. Her right hand has an obvious local allergic reaction with edema to the hand and distal third of the forearm. And otherwise neurovascular intact. There is no obvious stinger. There is a red rash that blanches. Left hand normal. Skin otherwise unremarkable. Neurologically she is awake and alert. Test Results: Urinalysis shows 50-100 white cells positive nitrates and 2+ bacteria consistent with UTI. Urine culture sent. I did check her most recent urine cultures and typically the positive for E. coli which is sensitive to multiple different antibiotics. She has multiple antibiotic allergies including Keflex, Bactrim and others so she was placed on Cipro 500 twice daily for 10 days. Her cultures in the past have been sensitive to Cipro. She denied discussed this. Emergency Department Course and Treatment: Prednisone p.o. For the local allergic reaction. Treatment Plan: Repeat exam she is doing well at 1700. Swelling in her hand is improving. She is instructed to ice and elevate it. Benadryl for the reaction. Urine culture was sent. Cipro 1 twice daily for 10 days and follow-up with her primary care physician. Disposition: Discharge Impression: Acute localized allergic reaction to the right hand Acute UTI (cystitis) This note was generated with [employer] dictation software. It may contain incorrect words, spelling, and punctuation that were not noted in review of the chart prior to signing ED Disposition - Plan for ED Patient: Referrals: Da Ocampo MD [Primary Care Provider] -
[2018-11-05 14:16] VITALS: BP 117/54; PULSE 67; PULSE 69; RESP 15; TEMP 36.8; O2SAT 96; O2SAT 97
[2018-11-05] MEDS: predniSONE 20 MG Tablet 60 MG PO (14:37)
[2018-11-05 15:44] VITALS: PULSE 72; TEMP 36.7
[2018-11-05 15:47] LABS: Mucous, Urine 0 SEEN /hpf (<or=2+); Red Blood Cells-Urine 0 SEEN /hpf (0-5)
[2018-11-05] MEDS: DiphenhydrAMINE 25 MG Capsule PO (15:49)
[2018-11-05 15:58] LABS: Color, Urine Yellow (Yellow); Glucose, Dipstick Normal (Normal); Ketone-Dipstick Negative (Negative); Leukocyte Esterase-Dipstick 500 /ul (Negative); Nitrite-Dipstick Positive (Negative); Occult Blood-Urine Negative /ul (Negative); Protein-Dipstick Negative (Negative); Specific Gravity, Urine 1.005 (1.002-1.030); Urine Bilirubin Dipstick Negative (Negative); Urine Clarity Sl. Cloudy (Clear); Urine Urobilinogen Normal (Normal)
[2018-11-05 16:08] LABS: Bacteria 2+ /hpf (None Seen); Squamous Epithelial Cells - UA 0-5 SEEN /hpf (5-10); White Blood Cells 50-100 SEEN /hpf (0-5)
[2018-11-05 16:56] VITALS: PULSE 86; TEMP 37
--- NOTE | 2018-11-05 17:09 | ED.DEP ---
ED Disposition - Plan for ED Patient: Disposition: Home or Assisted Living Instructions: Bladder Infection, Female (Adult), ALLERGIC REACTION, Other (Local) Prescriptions: Ciprofloxacin [Cipro] 500 mg PO BID #20 tab Prescription Printed Referrals: Da Ocampo MD [Primary Care Provider] - 1 Week Additional Instructions: Ice and elevate your right hand to decrease the swelling in the allergic reaction. Benadryl as needed for the itching and the swelling. This should progressively improve. Very important to elevated. You also have a urinary tract infection. A urine culture was sent. He will be started on antibiotics Cipro 1 pill twice a day for 10 days for a total of 20 pills. Follow-up with your primary care physician to ensure your improving.
[2018-11-05] MEDS: Ciprofloxacin 500 MG Tablet PO (17:22)
[2018-11-05 17:25] VITALS: BP 136/66; PULSE 77; RESP 18; TEMP 36.9; O2SAT 96
== END 2018-11-05 17:26 | disposition home or self-care (01) ==
PROVIDERS: Emergency Provider Emergency Medicine; Family Provider Family Medicine; PCP Family Medicine
DX: M79.89 Other specified soft tissue disorders (principal); T78.40XA Allergy, unspecified, initial encounter; X58.XXXA Exposure to other specified factors, initial encounter; N30.00 Acute cystitis without hematuria; E11.9 Type 2 diabetes mellitus without complications; R42 Dizziness and giddiness; Z79.84 Long term (current) use of oral hypoglycemic drugs; Z79.82 Long term (current) use of aspirin; Z79.52 Long term (current) use of systemic steroids; Z79.899 Other long term (current) drug therapy; Z87.440 Personal history of urinary (tract) infections
CPT/HCPCS: 81001; 87086; 87088; 87186; 99283

== ENCOUNTER 2018-11-08 22:00 | Inpatient (IN) | payer MEDICARE, OTHER, SELFPAY ==
[2018-11-08 22:02] VITALS: BP 158/75; PULSE 85; RESP 16; TEMP 36.9; O2SAT 98; BMI 33.7
--- NOTE | 2018-11-08 22:55 | ED.DCSUM_ITS ---
History of Present Illness Chief Complaint: Allergic Reaction Informant: Patient, Friend Onset: Hours - 1-2 Context: Gradual Onset Timing: Continuous Quality: swollen Location: tongue Current Severity: Moderate Maximum Severity: Moderate Worsened by: nothing Relieved by: nothing; received IV Benadryl Associated Symptoms: none. Narrative: Patient was seen for right hand swelling here in the ER several days ago, she was diagnosed with a urinary tract infection which she has a history of and frequently has no other symptoms. She was placed on Cipro. Last dose was around 12 hours ago, she has been taking it for 2-3 days now. Tonight she n oticed while she was eating that her tongue seems swollen, seemed to get a little worse so she called EMS. She denies any trouble breathing or trouble swallowing, she was able to drink and swallow it with no choking. She denies any near syncope or syncope, rash/pruritus, shortness of breath, extremity swelling; she states her right hand swelling from several days ago completely resolved. She does not take lisinopril or other ACEI, but she is on an ARB. - Past Medical History (1) Dementia Status: Chronic (2) Osteoarthritis Status: Chronic (3) History of diverticulosis Status: Chronic (4) History of hyperlipidemia Status: Chronic (5) Obesity Status: Chronic (6) HTN (hypertension) Status: Chronic (7) DM (diabetes mellitus), type 2 Status: Chronic (8) Hypothyroidism Status: Chronic (9) History of rheumatic fever Status: Chronic Past Medical History - Allergies and Home Meds Allergies/Adverse Reactions: Allergies amoxicillin [From Augmentin] Allergy (Verified 11/08/18 22:06) Itching cefdinir Allergy (Verified 11/08/18 22:06) Rash ciprofloxacin [From Cipro] Allergy (Verified 11/08/18 22:06) Swelling clavulanic acid [From Augmentin] Allergy (Verified 11/08/18 22:06) Itching doxycycline calcium [From Vibramycin] Allergy (Verified 11/08/18 22:06) Unknown doxycycline hyclate [From Vibramycin] Allergy (Verified 11/08/18 22:06) Unknown doxycycline monohydrate [From Vibramycin] Allergy (Verified 11/08/18 22:06) Unknown fluticasone Allergy (Verified 11/08/18 22:06) Unknown influenza virus vaccine, specific [Influenza Virus Vacc,Specific] Allergy (Verified 11/08/18 22:06) Swelling pneumococcal vaccine [Pneumococcal Vaccine] Allergy (Verified 11/08/18 22:06) Rash promethazine HCl [From Phenergan] Allergy (Verified 11/08/18 22:06) Unknown tetracycline [Tetracycline] Allergy (Verified 11/08/18 22:06) Unknown cephalexin [From Keflex] Adverse Reaction (Verified 11/08/18 22:06) Rash metronidazole [From Flagyl] Adverse Reaction (Verified 11/08/18 22:06) Unknown sulfamethoxazole [From Bactrim] Adverse Reaction (Verified 11/08/18 22:06) Rash trimethoprim [From Bactrim] Adverse Reaction (Verified 11/08/18 22:06) Rash Primary Care Physician: Da Ocampo MD [Primary Care Provider] - Surgical History: cataract, hysterectomy, tonsillectomy - For ovarian cancer many years ago., - - Exploratory laparotomy for lysis of adhesions Lives: Alone Smoking Status: Never smoker - Family History Maternal Family History: Reports: - - Her mother of liver cancer Paternal Family History: Reports: Heart Disease Review of Systems General: Denies: Chills, Fever, Sweats Eyes: Denies: Visual changes - bilaterally, Diplopia ENT: Reports: - - tongue swelling. Denies: Rhinorrhea, Sore throat Cardiovascular: Denies: Chest pain, Palpitations Respiratory: Denies: Dyspnea, Cough, Dyspnea on exertion Gastrointestinal: Denies: Abdominal pain, Nausea, Vomiting, Diarrhea, Melena, Hematochezia Genitourinary: Denies: Dysuria, Hematuria, Frequency Musculoskeletal: Denies: Back pain, Swelling, Extremity Pain Skin: Denies: Rash, Wounds Neurological: Denies: Headache, Weakness, Numbness Physical Exam Vital Signs/Narrative: Vital Signs Temp Pulse Resp BP Pulse Ox 11/08/18 22:02 98.5 F 85 16 158/75 H 98 Inital Vital Signs reviewed: Yes General: Well nourished, Well developed, No Acute Distress - lying supine. Head: Normocephalic, Atraumatic Eyes: Perrl, EOMI ENT: Moist mucous membranes, No rhinorrhea, - - tongue is diffusely edemetous. nontender, no erythema. POP incompletely visualized due to swelling in tongue. no stridor. no trismus. Neck: Supple, Nontender, No lymphadenopathy Cardiovascular: Regular rate, Regular rhythm, No murmurs Respiratory: No distress, CTA bilaterally, Chest nontender Abdomen: Soft, Nontender, Nondistended, Normal bowel sounds Back: Nontender, Normal Inspection Extremities: Nontender, Edema - trace BLE, symmetric.. Negative for: Calf Tenderness Skin: Normal color, No rash, No Trauma Neurological: Alert, Oriented x3, Cranial nerves II-XII grossly intact, Normal Strength, Normal Sensation Psychological: Normal affect, Normal Mood Diagnostic/Tx/Re-eval Laboratory Results 11/08/18 11/08/18 11/08/18 23:00 23:00 23:10 WBC 7.9 RBC 4.15 L Hgb 11.6 L Hct 36.3 L MCV 87.5 MCH 28.0 MCHC 32.0 RDW Std Deviation 42.3 RDW Coeff of Marleni 13.2 Plt Count 270 MPV 9.2 Immature Gran % (Auto) 0.400 Neut % (Auto) 63.3 Lymph % (Auto) 26.1 [place] % (Auto) 8.4 Eos % (Auto) 1.7 Baso % (Auto) 0.1 Absolute Neuts (auto) 5.0 Absolute Lymphs (auto) 2.05 Nucleated RBC % 0 Sodium 142 Potassium 3.5 Chloride 107 Carbon Dioxide 28.0 Anion Gap 7 BUN 13 Creatinine 0.67 Estim Creat Clear Calc 39.03 Est GFR (MDRD) Af Amer 108 Est GFR (MDRD) Non-Af 90 BUN/Creatinine Ratio 19.4 Glucose 132 H Calcium 8.8 Urine Color Yellow Urine Clarity Clear Urine pH 7.0 Ur Specific [place] 1.010 Urine Protein Negative Urine Glucose (UA) Normal Urine Ketones Negative Urine Occult Blood Negative Urine Nitrite Negative Urine Bilirubin Negative Urine Urobilinogen Normal Ur Leukocyte Esterase Negative Urine RBC 0 SEEN Urine WBC 0 SEEN Ur Squamous Epith Cells 0-5 SEEN Urine Bacteria 0 SEEN Urine Mucus 0 SEEN - Medical Decision Making Patient was observed after an hour or 2, I reexamined her and her angioedema is still the same. She is relatively asymptomatic with it with regards to trouble swallowing or breathing, however it is midnight and I feel she would be best served observed in the hospital, will admit to the ICU after I discussed with hospitalist. Of note her labs are unremarkable and her urinalysis shows resolution of her infection. I presume the ciprofloxacin was the cause of this, which she no longer appears to need. ED Disposition - Plan for ED Patient: Disposition: Acute Care Hospital [facility] Diagnosis: Angioedema Referrals: Da Ocampo MD [Primary Care Provider] -
[2018-11-08 23:15] LABS: Absolute Lymphocyte Count 2.05 X10^3/uL (0.83-4.51); Basophil# 0.01 X10^3/uL; Basophil% 0.1 % (0-1); Eosinophil# 0.13 X10^3/uL; Eosinophils% 1.7 % (0-5); Hematocrit 36.3 % (37-47); Hemoglobin 11.6 g/dL (12.0-15.0); Lymphocyte # 2.05 X10^3/ul (4.0); Lymphocyte % 26.1 % (19-41); Mean Corpuscular Volume 87.5 fL (81-99); Mean Platelet Vol. 9.2 fl (6.2-12.0); Monocyte# 0.66 X10^3/uL; Monocyte% 8.4 % (0-10); NRBC Flagged by Analyzer 0 % (0-5); Neutrophil # 4.97 X10^3/uL (2.7-7.7); Neutrophil % 63.3 % (47-70); Platelet Count 270 K/mm3 (150-450); RBC Distribution Width CV 13.2 % (11.6-14.6); RBC Distribution Width SD 42.3 fl (35.1-43.9); Red Blood Count 4.15 M/mm3 (4.2-5.4); White Blood Count 7.9 K/mm3 (4.4-11.0)
[2018-11-08 23:20] LABS: Bacteria 0 SEEN /hpf (None Seen); Mucous, Urine 0 SEEN /hpf (<or=2+); Red Blood Cells-Urine 0 SEEN /hpf (0-5); White Blood Cells 0 SEEN /hpf (0-5)
[2018-11-08 23:24] LABS: Color, Urine Yellow (Yellow); Glucose, Dipstick Normal (Normal); Ketone-Dipstick Negative (Negative); Leukocyte Esterase-Dipstick Negative /ul (Negative); Nitrite-Dipstick Negative (Negative); Occult Blood-Urine Negative /ul (Negative); Protein-Dipstick Negative (Negative); Urine Bilirubin Dipstick Negative (Negative); Urine Clarity Clear (Clear); Urine Urobilinogen Normal (Normal)
[2018-11-08 23:26] LABS: Anion Gap 7 (5-15); BUN 13 mg/dL (7-18); BUN/Creat Ratio 19.4 RATIO (10-20); Calcium,Total 8.8 mg/dL (8.5-10.1); Chloride 107 mmol/L (98-107); Creatinine, Serum 0.67 mg/dL (0.55-1.02); EST Glomerular Filtration Rate 90 mL/min (>60); Est Glom Filt Rate - Afr Amer 108 mL/min (>60); Estimated Creatinine Clearance 39.03 ml/min; Glucose 132 mg/dL (74-106); Potassium 3.5 mmol/L (3.5-5.1); Sodium Level 142 mmol/L (136-145)
[2018-11-08 23:34] LABS: Squamous Epithelial Cells - UA 0-5 SEEN /hpf (5-10)
[2018-11-09] VITALS (17 sets, daily range): BP systolic 113–176; BP diastolic 60–122; PULSE 66–80; RESP 12–18; TEMP 36.1–36.7; O2SAT 92–98; BMI 32.9
--- NOTE | 2018-11-09 00:14 | HP.PCM_ITS ---
History of Present Illness Date of Admission: 11/09/18 Chief Complaint: swollen tongue The patient is a 83 year old F with a PMH as listed. She was admitted with a complaint of swelling of her tongue. Patient states she had not noticed any swelling of her tongue all day but while she was eating dinner this evening, she noticed that her tongue felt swollen so she went looking the mirror and noted that it was swollen. Patient has been on ciprofloxacin for UTI and is also on Cozaar. She is only new medication just taking recently as prednisone. She denied any shortness of breath, palpitations, fever or chills, any vomiting abdominal pain. Review of systems otherwise negative. She is never had any sw elling of her tongue or any other body part like this before. Vitals in the ED was stable and she was saturating at 98% on room air. Chemistry was unremarkable and CBC was only significant for hemoglobin of 11.6. She has been admitted to be managed for angioedema of the tongue, likely precipitated by ciprofloxacin and/or losartan. [] Past Medical History Past Medical History (Chronic Problems): Chronic Problems Dementia (Chronic) Generalized weakness (Chronic) Osteoarthritis (Chronic) History of diverticulosis (Chronic) History of hyperlipidemia (Chronic) Obesity (Chronic) HTN (hypertension) (Chronic) DM (diabetes mellitus), type 2 (Chronic) Macular degeneration (Chronic) Hypothyroidism (Chronic) History of rheumatic fever (Chronic) Allergies amoxicillin [From Augmentin] Allergy (Verified 11/08/18 22:06) Itching cefdinir Allergy (Verified 11/08/18 22:06) Rash ciprofloxacin [From Cipro] Allergy (Verified 11/08/18 22:06) Swelling clavulanic acid [From Augmentin] Allergy (Verified 11/08/18 22:06) Itching doxycycline calcium [From Vibramycin] Allergy (Verified 11/08/18 22:06) Unknown doxycycline hyclate [From Vibramycin] Allergy (Verified 11/08/18 22:06) Unknown doxycycline monohydrate [From Vibramycin] Allergy (Verified 11/08/18 22:06) Unknown fluticasone Allergy (Verified 11/08/18 22:06) Unknown influenza virus vaccine, specific [Influenza Virus Vacc,Specific] Allergy (Verified 11/08/18 22:06) Swelling pneumococcal vaccine [Pneumococcal Vaccine] Allergy (Verified 11/08/18 22:06) Rash promethazine HCl [From Phenergan] Allergy (Verified 11/08/18 22:06) Unknown tetracycline [Tetracycline] Allergy (Verified 11/08/18 22:06) Unknown cephalexin [From Keflex] Adverse Reaction (Verified 11/08/18 22:06) Rash metronidazole [From Flagyl] Adverse Reaction (Verified 11/08/18 22:06) Unknown sulfamethoxazole [From Bactrim] Adverse Reaction (Verified 11/08/18 22:06) Rash trimethoprim [From Bactrim] Adverse Reaction (Verified 11/08/18 22:06) Rash Home Medications: Ambulatory Orders Medication Instructions Recorded Aspirin [Aspirin, Baby] 81 mg PO DAILY@0800 12/10/13 Hydrochlorothiazide [Hctz] 25 mg PO DAILY 12/10/13 Levothyroxine Sodium [Levoxyl] 100 mcg PO DAILY 12/10/13 Losartan Potassium [Cozaar] 100 mg PO DAILY 12/10/13 Polyethylene Glycol 3350 [Miralax] 17 gm PO DAILY 12/10/13 glyBURIDE [Micronase] 5 mg PO BIDCM 12/10/13 metFORMIN HCl [Glucophage] 500 mg PO TIDCM 12/10/13 Loteprednol Etabonate [Lotemax] 1 drop LEFT EYE BID 04/22/14 Vit C/E/Zn/Coppr/Lutein/Zeaxan 1,000 mg PO DAILY 04/22/14 [Preservision Areds 2 Softgel] Acetaminophen [Tylenol] 325 mg PO Q6H PRN PRN 08/25/14 Oxybutynin Chloride [Ditropan Xl] 10 mg PO DAILY 08/25/14 Diclofenac Sodium [Voltaren] 4 g TOPICAL 4X/DAY 08/20/18 Venlafaxine HCl 75 mg PO DAILY 08/20/18 prednisoLONE eye drops (5 mL) 1 drop RIGHT EYE 4X/DAY 08/21/18 [Pred Forte eye drops (5 mL)] Lidocaine [Lidoderm Patch] 1 patch TOPICAL DAILY patch 08/23/18 Nystatin [Mycostatin] 1 applic TOPICAL BID tube 08/23/18 Ciprofloxacin [Cipro] 500 mg PO BID #20 tab 11/05/18 Surgical History: cataract, hysterectomy, tonsillectomy - For ovarian cancer many years ago., - - Exploratory laparotomy for lysis of adhesions Psychiatric History: - - Cognitive impairment-type unknown 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 Lives: Alone Smoking Status: Never smoker - *Family History Maternal History Items: - - Her mother of liver cancer Paternal History Items: Heart Disease Review of Systems Constitutional: Denies: Chills, Fever, Weight Change Eyes: Denies: Blurred vision HEENT: Denies: Head Aches, Sinus Congestion, Sinus Drainage Cardiovascular: Denies: Chest Pain, Palpitations Respiratory: Denies: Cough, Shortness of Breath, Shortness of breath at rest, Shortness of breath upon exertion, Sputum production Gastrointestinal: Denies: Abdominal Pain, Nausea, Vomiting Genitourinary: Denies: Dysuria Musculoskeletal: Denies: Joint Pain, Joint Tenderness Skin: Denies: Rash, Wounds Neurological: Denies: Numbness, Tingling, Focal weakness Psychiatric: Denies: Anxiety, Depression, Homicidal Ideations, Suicidal Ideations Hematologic/ Lymphatic: Denies: Easy Bruising, Easy Bleeding VTE Information - Inpt Only VTE Present on Admission: No VTE Pharm Prophylaxis ordered?: Yes Patient Problems: Active and Suspected Problems Angioedema (Acute) - Physical Exam General: Alert, Oriented x3, Cooperative, No apparent distress HEENT: Atraumatic, PERRLA, EOMI, Normocephalic Oral: Moist Mucosa, - - moderate macroglossia, no stridor or difficulty swallowing Neck: Supple, No JVD, Negative Carotid Bruits Lungs: Clear to auscultation, Normal air movement, No rhonchi, No wheeze, No rales Cardiovascular: Regular rate, Regular Rhythm, Normal S1, Normal S2, No murmurs Abdomen: Bowel Sounds Present, Soft, Non Tender, Non-Distended, No Hepato- splenomegaly Extremities: No clubbing, No cyanosis, No edema, Capillary Refill Less than 3 Seconds Skin: No rashes, No breakdown Musculoskeletal: No Tenderness to Palpation of Joints or Extremities Lymphatic: No Cervical, Supraclavicular, or Inguinal Adenopathy Neurological: Cranial nerves II-XII grossly intact, Neuro grossly intact, Motor Exam 5/5 strength throughout Psych/Mental Status: Normal Affect, Appropriate, Alert and oriented to time, place, person, mood and affect Vital Signs Temp Pulse Resp BP Pulse Ox 98.5 F 85 16 158/75 H 98 11/08/18 22:02 11/08/18 22:02 11/08/18 22:02 11/08/18 22:02 11/08/18 22:02 Oxygen Delivery Method Room Air Weight: 203 lb Body Mass Index (BMI) 33.7 Laboratory Tests Past 24 Hrs 11/08/18 11/08/18 11/08/18 23:00 23:00 23:10 WBC 7.9 RBC 4.15 L Hgb 11.6 L Hct 36.3 L MCV 87.5 MCH 28.0 MCHC 32.0 RDW Std Deviation 42.3 RDW Coeff of Marleni 13.2 Plt Count 270 MPV 9.2 Immature Gran % (Auto) 0.400 Neut % (Auto) 63.3 Lymph % (Auto) 26.1 [place] % (Auto) 8.4 Eos % (Auto) 1.7 Baso % (Auto) 0.1 Absolute Neuts (auto) 5.0 Absolute Lymphs (auto) 2.05 Nucleated RBC % 0 Sodium 142 Potassium 3.5 Chloride 107 Carbon Dioxide 28.0 Anion Gap 7 BUN 13 Creatinine 0.67 Estim Creat Clear Calc 39.03 Est GFR (MDRD) Af Amer 108 Est GFR (MDRD) Non-Af 90 BUN/Creatinine Ratio 19.4 Glucose 132 H Calcium 8.8 Urine Color Yellow Urine Clarity Clear Urine pH 7.0 Ur Specific [place] 1.010 Urine Protein Negative Urine Glucose (UA) Normal Urine Ketones Negative Urine Occult Blood Negative Urine Nitrite Negative Urine Bilirubin Negative Urine Urobilinogen Normal Ur Leukocyte Esterase Negative Urine RBC 0 SEEN Urine WBC 0 SEEN Ur Squamous Epith Cells 0-5 SEEN Urine Bacteria 0 SEEN Urine Mucus 0 SEEN Assessment/Plan All Active Problems BRADY (acute kidney injury) (Acute) Urinary retention (Acute) Drug reaction (Acute) Angioedema (Acute) Hypotension (Acute) Severe sepsis (Acute) Urinary tract infection (Acute) Acute prerenal azotemia (Acute) Renal insufficiency, mild (Acute) Elevated liver enzymes (Acute) Shoulder pain, left (Resolved) Fecal impaction of colon (Resolved) Abdominal pain (Resolved) Intractable nausea and vomiting (Resolved) Fall (Resolved) Abrasion of anterior lower leg (Resolved) Rib pain on left side (Resolved) History of ovarian cancer (Resolved) 83 y/o admitted with a complaint of tongue swelling 1. Angioedema of the tongue * admit to ICU as a precaution * patient only recently took ciprofloxacin and prednisone; also on losartan * give IV solumedrol 40mg q8 and IV benadryl 25mg q6prn * hold losartan and ciprofloxacin * breathing treatments prn * counselled that she will have to stop taking cozaar and ciprofloxacin, and both will be listed as allergies in the EMR * 2. Hypertension: Cozaar stopped. on hydrochlorthiazide 4. Diabetes mellitus: On glyburide and metformin. Insulin sliding scale. Check TSH is. 4. Hypothyroidism: On Synthroid. VT prophylaxis: Lovenox CODE STATUS: Full code * Patient counseled extensively about different types of CODE STATUS including full code, DNR CCA and DNR CCA. Patient counseled that if tongue swelling gets worse or her respirations compromise, she would have to be intubated to protect her airway and she is agreeable to this. Patient elects to be full code. Total [id number] time 17 minutes. Code Visit Inpatient E&M: 73571 Init Hosp L3 Procedures: 07895 Advncd Care Plan 30 Min
[2018-11-09] MEDS: 0.9% Normal Saline 1,000 ML 75 ML IV (01:55)
[2018-11-09 06:01] LABS: Bedside Glucose 167 mg/dL (70-110)
[2018-11-09] MEDS: Insulin Lispro 100 UNIT/ML INSULN.PEN SC ×3 (06:07→22:29)
[2018-11-09] MEDS: Mupirocin Ointment 22gm Tube 1 APPLIC TOPICAL ×2 (06:08→22:28)
[2018-11-09 06:09] LABS: Absolute Lymphocyte Count 0.85 X10^3/uL (0.83-4.51); Absolute Neutrophil Count 5.4 X10^3/uL (2.0-7.7); Basophil# 0.01 X10^3/uL; Basophil% 0.2 % (0-1); Eosinophil# 0.01 X10^3/uL; Eosinophils% 0.2 % (0-5); Hematocrit 39.3 % (37-47); Hemoglobin 12.6 g/dL (12.0-15.0); Lymphocyte # 0.85 X10^3/ul (4.0); Lymphocyte % 13.3 % (19-41); Mean Corp Hgb Conc 32.1 g/dL (32-36); Mean Corpuscular Hgb 27.8 pg (27.0-32.0); Mean Corpuscular Volume 86.8 fL (81-99); Mean Platelet Vol. 8.9 fl (6.2-12.0); Monocyte# 0.09 X10^3/uL; Monocyte% 1.4 % (0-10); NRBC Flagged by Analyzer 0 % (0-5); Neutrophil # 5.42 X10^3/uL (2.7-7.7); Neutrophil % 84.6 % (47-70); Platelet Count 294 K/mm3 (150-450); RBC Distribution Width CV 13.2 % (11.6-14.6); RBC Distribution Width SD 41.6 fl (35.1-43.9); Red Blood Count 4.53 M/mm3 (4.2-5.4); White Blood Count 6.4 K/mm3 (4.4-11.0)
[2018-11-09] MEDS: Levothyroxine 100 MCG Tablet PO (06:10)
[2018-11-09 06:23] LABS: Anion Gap 6 (5-15); BUN 10 mg/dL (7-18); BUN/Creat Ratio 18.7 RATIO (10-20); Calcium,Total 9.1 mg/dL (8.5-10.1); Chloride 107 mmol/L (98-107); Creatinine, Serum 0.54 mg/dL (0.55-1.02); EST Glomerular Filtration Rate 116 mL/min (>60); Est Glom Filt Rate - Afr Amer 140 mL/min (>60); Estimated Creatinine Clearance 39.03 ml/min; Glucose 180 mg/dL (74-106); Potassium 3.8 mmol/L (3.5-5.1); Sodium Level 142 mmol/L (136-145)
--- NOTE | 2018-11-09 06:27 | CON.PCM_ITS ---
Reason for Consult Date of Consultation: 11/09/18 Reason for Consultation: Angioedema History of Present Illness: The patient is an 83-year-old female, with a history as outlined below, who presented to the emergency department on November 08 over concerns for tongue swelling. On November 05, the patient was evaluated in the emergency department for complaints of right hand swelling and possible urinary tract infection. Urine culture dated November 05 was positive for presumptive E. coli, which was pansensitive. The patient was provided with a prescription for ciprofloxacin at the time of her discharge from the emergency department. The patient subsequently began taking the aforementioned antibiotic as recommended. The patient stated that last evening she made a salad for dinner and upon attempting to eat her meal noticed that she was having difficulty with chewing. She subsequently perceived that her tongue felt swollen. Therefore she contacted EMS and was transported to the emergency department. The patient denies any previous reaction similar to this in the past. She is not currently prescribed an ESE inhibitor, but does utilize Cozaar on an outpatient basis. She denied the presence of shortness of breath or problems swallowing. On presentation to the emergency department, the patient was noted to be afebrile and hemodynamically stable. She was maintaining appropriate oxygen saturations on room air. Laboratory evaluation revealed no evidence of a leukocytosis. Chemistry profile was unrevealing. Urinalysis was unremarkable. In the emergency department, the patient was documented to have a diffusely edematous tongue. She was treated with Benadryl and steroids. The patient was subsequently admitted to the ICU for observation over concerns that the ciprofloxacin may have precipitated an allergic reaction. Past Medical History Past Medical History (Chronic Problems): Chronic Problems Dementia (Chronic) Generalized weakness (Chronic) Osteoarthritis (Chronic) History of diverticulosis (Chronic) History of hyperlipidemia (Chronic) Obesity (Chronic) HTN (hypertension) (Chronic) DM (diabetes mellitus), type 2 (Chronic) Macular degeneration (Chronic) Hypothyroidism (Chronic) History of rheumatic fever (Chronic) Allergies amoxicillin [From Augmentin] Allergy (Verified 11/08/18 22:06) Itching cefdinir Allergy (Verified 11/08/18 22:06) Rash ciprofloxacin [From Cipro] Allergy (Verified 11/08/18 22:06) Swelling clavulanic acid [From Augmentin] Allergy (Verified 11/08/18 22:06) Itching doxycycline calcium [From Vibramycin] Allergy (Verified 11/08/18 22:06) Unknown doxycycline hyclate [From Vibramycin] Allergy (Verified 11/08/18 22:06) Unknown doxycycline monohydrate [From Vibramycin] Allergy (Verified 11/08/18 22:06) Unknown fluticasone Allergy (Verified 11/08/18 22:06) Unknown influenza virus vaccine, specific [Influenza Virus Vacc,Specific] Allergy (Verified 11/08/18 22:06) Swelling losartan Allergy (Verified 11/09/18 00:59) Angioedema pneumococcal vaccine [Pneumococcal Vaccine] Allergy (Verified 11/08/18 22:06) Rash promethazine HCl [From Phenergan] Allergy (Verified 11/08/18 22:06) Unknown tetracycline [Tetracycline] Allergy (Verified 11/08/18 22:06) Unknown cephalexin [From Keflex] Adverse Reaction (Verified 11/08/18 22:06) Rash metronidazole [From Flagyl] Adverse Reaction (Verified 11/08/18 22:06) Unknown sulfamethoxazole [From Bactrim] Adverse Reaction (Verified 11/08/18 22:06) Rash trimethoprim [From Bactrim] Adverse Reaction (Verified 11/08/18 22:06) Rash Home Medications: Ambulatory Orders Medication Instructions Recorded Aspirin [Aspirin, Baby] 81 mg PO DAILY@0800 12/10/13 Hydrochlorothiazide [Hctz] 25 mg PO DAILY 12/10/13 Levothyroxine Sodium [Levoxyl] 100 mcg PO DAILY 12/10/13 Losartan Potassium [Cozaar] 100 mg PO DAILY 12/10/13 Polyethylene Glycol 3350 [Miralax] 17 gm PO DAILY PRN 12/10/13 glyBURIDE [Micronase] 5 mg PO BIDCM 12/10/13 metFORMIN HCl [Glucophage] 500 mg PO TIDCM 12/10/13 Loteprednol Etabonate [Lotemax] 1 drop LEFT EYE BID 04/22/14 Vit C/E/Zn/Coppr/Lutein/Zeaxan 1,000 mg PO DAILY 04/22/14 [Preservision Areds 2 Softgel] Acetaminophen [Tylenol] 325 mg PO Q6H PRN PRN 08/25/14 Oxybutynin Chloride [Ditropan Xl] 10 mg PO DAILY 08/25/14 Venlafaxine HCl 75 mg PO BID 08/20/18 prednisoLONE eye drops (5 mL) 1 drop RIGHT EYE 4X/DAY 08/21/18 [Pred Forte eye drops (5 mL)] DiphenhydrAMINE [Benadryl] 25 mg PO Q6H PRN 11/09/18 Lidocaine [Lidoderm Patch] 1 patch TOPICAL DAILY 11/09/18 Mupirocin Calcium [Bactroban Cream] 1 applic TOPICAL TID 11/09/18 Surgical History: cataract, hysterectomy, tonsillectomy - For ovarian cancer many years ago., - - Exploratory laparotomy for lysis of adhesions Psychiatric History: - - Cognitive impairment-type unknown 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: No pertinent 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 Lives: Alone Smoking Status: Never smoker - *Family History Maternal History Items: - - Her mother of liver cancer Paternal History Items: Heart Disease Review of Systems Constitutional: Denies: Chills, Fever Eyes: Denies: Blurred vision, Double vision HEENT: Denies: Difficulty Swallowing, Dysphasia Cardiovascular: Denies: Chest Pain, Palpitations Respiratory: Denies: Cough, Shortness of breath at rest, Sputum production Gastrointestinal: Denies: Abdominal Pain, Nausea, Vomiting Genitourinary: Denies: Dysuria Musculoskeletal: Denies: Joint Pain, Joint Tenderness Skin: Denies: Rash, Wounds Neurological: Denies: Numbness, Tingling, Focal weakness Psychiatric: Denies: Anxiety, Depression, Homicidal Ideations, Suicidal Ideations Hematologic/ Lymphatic: Denies: Easy Bruising, Easy Bleeding Patient Problems: Active and Suspected Problems Angioedema (Acute) Objective: The patient's most recent lab work, culture data and imaging studies have all been personally reviewed. - Physical Exam General: Alert, Oriented x3, Cooperative, No apparent distress HEENT: Atraumatic, PERRLA, Normocephalic Oral: No Gingival or Mucosal Lesions/ Ulcerations, - - No angioedema noted. Neck: Supple, No Nodes, Trachea Midline, - - No stridor present Lungs: Normal air movement, No rhonchi, No wheeze, No rales Cardiovascular: Regular rate, Regular Rhythm, Normal S1, Normal S2, Murmur Abdomen: Bowel Sounds Present, Soft, Non Tender Extremities: No clubbing, No cyanosis, No edema Skin: No breakdown Musculoskeletal: No Tenderness to Palpation of Joints or Extremities, No Muscle Wasting Lymphatic: No Cervical, Supraclavicular, or Inguinal Adenopathy Neurological: Cranial nerves II-XII grossly intact, Neuro grossly intact Psych/Mental Status: Normal Affect, Appropriate Vital Signs Temp Pulse Resp BP Pulse Ox 97.0 F L 75 12 162/75 H 95 11/09/18 04:00 11/09/18 05:00 11/09/18 05:00 11/09/18 05:00 11/09/18 05:00 Oxygen Delivery Method Room Air Weight: 197 lb 15.602 oz Body Mass Index (BMI) 32.9 Laboratory Tests Past 24 Hrs 11/08/18 11/08/18 11/08/18 23:00 23:00 23:10 WBC 7.9 RBC 4.15 L Hgb 11.6 L Hct 36.3 L MCV 87.5 MCH 28.0 MCHC 32.0 RDW Std Deviation 42.3 RDW Coeff of Marleni 13.2 Plt Count 270 MPV 9.2 Immature Gran % (Auto) 0.400 Neut % (Auto) 63.3 Lymph % (Auto) 26.1 Camp % (Auto) 8.4 Eos % (Auto) 1.7 Baso % (Auto) 0.1 Absolute Neuts (auto) 5.0 Absolute Lymphs (auto) 2.05 Nucleated RBC % 0 Sodium 142 Potassium 3.5 Chloride 107 Carbon Dioxide 28.0 Anion Gap 7 BUN 13 Creatinine 0.67 Estim Creat Clear Calc 39.03 Est GFR (MDRD) Af Amer 108 Est GFR (MDRD) Non-Af 90 BUN/Creatinine Ratio 19.4 Glucose 132 H Calcium 8.8 Urine Color Yellow Urine Clarity Clear Urine pH 7.0 Ur Specific [place] 1.010 Urine Protein Negative Urine Glucose (UA) Normal Urine Ketones Negative Urine Occult Blood Negative Urine Nitrite Negative Urine Bilirubin Negative Urine Urobilinogen Normal Ur Leukocyte Esterase Negative Urine RBC 0 SEEN Urine WBC 0 SEEN Ur Squamous Epith Cells 0-5 SEEN Urine Bacteria 0 SEEN Urine Mucus 0 SEEN 11/09/18 11/09/18 06:00 06:00 WBC 6.4 RBC 4.53 Hgb 12.6 Hct 39.3 MCV 86.8 MCH 27.8 MCHC 32.1 RDW Std Deviation 41.6 RDW Coeff of Marleni 13.2 Plt Count 294 MPV 8.9 Immature Gran % (Auto) 0.300 Neut % (Auto) 84.6 H Lymph % (Auto) 13.3 L Camp % (Auto) 1.4 Eos % (Auto) 0.2 Baso % (Auto) 0.2 Absolute Neuts (auto) 5.4 Absolute Lymphs (auto) 0.85 Nucleated RBC % 0 Sodium 142 Potassium 3.8 Chloride 107 Carbon Dioxide 29.0 Anion Gap 6 BUN 10 Creatinine 0.54 L Estim Creat Clear Calc 39.03 Est GFR (MDRD) Af Amer 140 Est GFR (MDRD) Non-Af 116 BUN/Creatinine Ratio 18.7 Glucose 180 H Calcium 9.1 Urine Color Urine Clarity Urine pH Ur Specific [place] Urine Protein Urine Glucose (UA) Urine Ketones Urine Occult Blood Urine Nitrite Urine Bilirubin Urine Urobilinogen Ur Leukocyte Esterase Urine RBC Urine WBC Ur Squamous Epith Cells Urine Bacteria Urine Mucus POC Glucose 11/09/18 05:54 POC Glucose 167 H Assessment/Plan Active and Suspected Problems Angioedema (Acute) RECOMMENDATIONS: 1. Okay to continue as needed Benadryl. 2. I do not feel that we need to continue steroids at this time. 3. Avoid use of ciprofloxacin in the future. 4. The patient can be transferred out of the intensive care unit from my perspective. IMPRESSIONS: 1. Allergic medication reaction/concern for angioedema The patient presented to the hospital over concerns for tongue swelling in the setting of recently being started on ciprofloxacin. While there was no evidence of angioedema on my examination this morning, the patient was noted to have a diffusely edematous tongue in the emergency department. She was subsequently treated with Benadryl and steroids. The patient is without evidence of any form of airway compromise. She is maintaining oxygen saturations on room air. It is certainly possible that she may have had some form of an allergic reaction to the ciprofloxacin which was provided to her for treatment of her E. coli cystitis. 2. E. coli cystitis The patient was diagnosed with an E. coli urinary tract infection based upon cultures collected on November 05. She was on treatment with the aforementioned ciprofloxacin and is currently asymptomatic from a urinary perspective. 3. Diabetes mellitus/hypertension/hypothyroidism Complicates care, management, recovery and prognosis. Continue home medications as indicated. This note was generated with [employer] software. It may contain incorrect words, spelling, and punctuation that were not noted in checking the note before signing. Code Visit Inpatient E&M: 33541 Init Hosp L3
[2018-11-09] MEDS: Venlafaxine HCl 75 MG Tablet PO ×2 (08:52→22:26)
[2018-11-09] MEDS: Aspirin 81 MG TAB.CHEW PO (08:53)
[2018-11-09] MEDS: metFORMIN HCl 500 MG Tablet PO ×3 (08:53→16:26)
[2018-11-09] MEDS: Multivitamins,Ther W-Minerals Tablet 1 TABLET PO (08:53)
[2018-11-09] MEDS: Enoxaparin 40 MG/0.4 ML Syringe SC (08:54)
[2018-11-09] MEDS: Tolterodine Tartrate 2 MG CAP.SA PO (08:54)
[2018-11-09] MEDS: hydroCHLOROthiazide 25 MG Tablet PO (08:54)
[2018-11-09] MEDS: prednisoLONE eye drops (5 mL) 1 DROP OPTH.BTL 1 DRP RIGHT EYE (08:55)
[2018-11-09] MEDS: 0.9% NaCl Peripheral Flush Adult/Peds IV (13:59)
[2018-11-09 17:11] LABS: Bedside Glucose 236 mg/dL (70-110)
[2018-11-09] MEDS: Nystatin Powder 15gm Bottle 1 APPLIC TOPICAL (22:30)
[2018-11-09] MEDS: Polyethylene Glycol 3350 17 GM PACKET PO (22:44)
[2018-11-09 23:41] LABS: Bedside Glucose 239 mg/dL (70-110)
[2018-11-10] MEDS: Acetaminophen 325 MG Tablet PO (00:19)
[2018-11-10 00:25] VITALS: BP 147/64; PULSE 75; RESP 18; TEMP 36.6; O2SAT 97
[2018-11-10] MEDS: Mupirocin Ointment 22gm Tube 1 APPLIC TOPICAL ×2 (05:59→15:06)
[2018-11-10] MEDS: Nystatin Powder 15gm Bottle 1 APPLIC TOPICAL ×2 (06:00→15:06)
[2018-11-10] MEDS: Levothyroxine 100 MCG Tablet PO (06:01)
[2018-11-10 06:10] VITALS: BP 149/71; PULSE 62; RESP 18; TEMP 36.6; O2SAT 93
[2018-11-10] MEDS: Insulin Lispro 100 UNIT/ML INSULN.PEN SC ×2 (06:46→11:41)
[2018-11-10 06:56] VITALS: O2SAT 93
[2018-11-10 07:05] LABS: Bedside Glucose 238 mg/dL (70-110)
[2018-11-10] MEDS: Aspirin 81 MG TAB.CHEW PO (08:46)
[2018-11-10] MEDS: Tolterodine Tartrate 2 MG CAP.SA PO (08:46)
[2018-11-10] MEDS: Multivitamins,Ther W-Minerals Tablet 1 TABLET PO (08:46)
[2018-11-10] MEDS: metFORMIN HCl 500 MG Tablet PO ×2 (08:46→11:41)
[2018-11-10] MEDS: prednisoLONE eye drops (5 mL) 1 DROP OPTH.BTL 1 DRP RIGHT EYE ×2 (08:47→15:05)
[2018-11-10] MEDS: Enoxaparin 40 MG/0.4 ML Syringe SC (08:47)
[2018-11-10] MEDS: Venlafaxine HCl 75 MG Tablet PO (08:47)
[2018-11-10] MEDS: hydroCHLOROthiazide 25 MG Tablet PO (08:47)
[2018-11-10 09:17] VITALS: BP 123/92; PULSE 76; RESP 18; TEMP 36.5; O2SAT 95
[2018-11-10 11:45] LABS: Bedside Glucose 286 mg/dL (70-110)
--- NOTE | 2018-11-10 13:05 | CASEMGMT ---
VICENTA MARIE Face to Face with patient for initial transition planning/care coordination assessment. VICENTA MARIE introduced self and role at [facility]. Patient sitting in chair, alert and oriented. Patient willing to participate in assessment and is able to answer all questions appropriately. Care providers, pharmacy, and demographics verified. Patient wishes to discharge home with resumption of HHC with [facility]. Patient states she has no further needs or concerns at this time. CM to follow for discharge planning needs that may arise. PCP: Terrence Specialists: Kelli urologist Preferred Pharmacy: [facility] Insurance: [facility] Prescription Benefit: yes Living Will/HPOA: not sure LNOK: daughters Living Arrangements: Patient lives alone in 1 story house with 2 steps to enter the home. Patient states she is independent for self care. Has a friend that will be helping 2x/week with household task. Transportation: Daughter DME/HHC: Patient states that she has shower chair, higher toilet, cane, walker, grab bars, and medical alert at home. Patient has previously been to [facility] and is current with [facility] for nursing. Patient states that home therapy has recently signed off. VICENTA MARIE called and faxed updated clinicals and discharge paperwork to [facility]. Disposition Plan: Patient to discharge home with resumption of HHC, family support, and follow-up plans in place. Ruth JIMENEZ, RN, CM
--- NOTE | 2018-11-10 13:44 | DCINST_ITS ---
- Discharge Diagnoses Current Active Problems: Current Active and Chronic Problems Angioedema (Acute) You will use the following diet at home:: Calorie/Carbohydrate Controlled (specify 1200, 1400, etc) Your food should be the consistency of: Regular Your liquids should be the consistency of: Regular/Thin Discharge Activity: Return to Normal Activity Call your doctor if you observe: Fever of 101 or Higher, Shortness of breath, Dizziness, Fainting spells, Swelling in the ankles, Chest pain, Increased palpitations (irregular heartbeat) Allergies/Adverse Reactions: Allergies amoxicillin [From Augmentin] Allergy (Verified 11/08/18 22:06) Itching cefdinir Allergy (Verified 11/08/18 22:06) Rash ciprofloxacin [From Cipro] Allergy (Verified 11/08/18 22:06) Swelling clavulanic acid [From Augmentin] Allergy (Verified 11/08/18 22:06) Itching doxycycline calcium [From Vibramycin] Allergy (Verified 11/08/18 22:06) Unknown doxycycline hyclate [From Vibramycin] Allergy (Verified 11/08/18 22:06) Unknown doxycycline monohydrate [From Vibramycin] Allergy (Verified 11/08/18 22:06) Unknown fluticasone Allergy (Verified 11/08/18 22:06) Unknown influenza virus vaccine, specific [Influenza Virus Vacc,Specific] Allergy (Verified 11/08/18 22:06) Swelling losartan Allergy (Verified 11/09/18 00:59) Angioedema pneumococcal vaccine [Pneumococcal Vaccine] Allergy (Verified 11/08/18 22:06) Rash promethazine HCl [From Phenergan] Allergy (Verified 11/08/18 22:06) Unknown tetracycline [Tetracycline] Allergy (Verified 11/08/18 22:06) Unknown cephalexin [From Keflex] Adverse Reaction (Verified 11/08/18 22:06) Rash metronidazole [From Flagyl] Adverse Reaction (Verified 11/08/18 22:06) Unknown sulfamethoxazole [From Bactrim] Adverse Reaction (Verified 11/08/18 22:06) Rash trimethoprim [From Bactrim] Adverse Reaction (Verified 11/08/18 22:06) Rash Medications to take at Discharge Aspirin [Aspirin, Baby] 81 mg PO DAILY@0800 12/10/13 Hydrochlorothiazide [Hctz] 25 mg PO DAILY 12/10/13 Levothyroxine Sodium [Levoxyl] 100 mcg PO DAILY 12/10/13 Losartan Potassium [Cozaar] 100 mg PO DAILY 12/10/13 Polyethylene Glycol 3350 [Miralax] 17 gm PO DAILY PRN 12/10/13 glyBURIDE [Micronase] 5 mg PO BIDCM 12/10/13 metFORMIN HCl [Glucophage] 500 mg PO TIDCM 12/10/13 Loteprednol Etabonate [Lotemax] 1 drop LEFT EYE BID 04/22/14 Vit C/E/Zn/Coppr/Lutein/Zeaxan [Preservision Areds 2 Softgel] 1,000 mg PO DAILY 04/22/14 Acetaminophen [Tylenol] 325 mg PO Q6H PRN PRN 08/25/14 Oxybutynin Chloride [Ditropan Xl] 10 mg PO DAILY 08/25/14 Venlafaxine HCl 75 mg PO BID 08/20/18 prednisoLONE eye drops (5 mL) [Pred Forte eye drops (5 mL)] 1 drop RIGHT EYE 4X/DAY 08/21/18 DiphenhydrAMINE [Benadryl] 25 mg PO Q6H PRN 11/09/18 Lidocaine [Lidoderm Patch] 1 patch TOPICAL DAILY 11/09/18 Mupirocin Calcium [Bactroban Cream] 1 applic TOPICAL TID 11/09/18 Primary Care Physician: Da Ocampo MD [Primary Care Provider] - Please follow up with your Primary Care Physician in: 3-5 days Test Results: Test results from this visit will be discussed in further detail at your follow- up appointment, if applicable.
--- NOTE | 2018-11-10 13:46 | PCM.DC.SUM ---
Discharge Date and Diagnosis - Problem List Patient Problems: Active and Suspected Problems Angioedema (Acute) Date of Admission: 11/09/18 Date of Discharge: 11/10/18 - Primary Discharge Diagnosis Active and Suspected Problems Angioedema (Acute) - Secondary Discharge Diagnosis Chronic Problems Dementia (Chronic) Generalized weakness (Chronic) Osteoarthritis (Chronic) History of diverticulosis (Chronic) History of hyperlipidemia (Chronic) Obesity (Chronic) HTN (hypertension) (Chronic) DM (diabetes mellitus), type 2 (Chronic) Macular degeneration (Chronic) Hypothyroidism (Chronic) History of rheumatic fever (Chronic) Hospital Course and Treatment Imaging Results: None Consults: ICU Operations: None Procedures: None Summary of Care Provided: Per HPI: The patient is a 83 year old F with a PMH as listed. She was admitted with a complaint of swelling of her tongue. Patient states she had not noticed any swelling of her tongue all day but while she was eating dinner this evening, she noticed that her tongue felt swollen so she went looking the mirror and noted that it was swollen. Patient has been on ciprofloxacin for UTI and is also on Cozaar. She is only new medication just taking recently as prednisone. She denied any shortness of breath, palpitations, fever or chills, any vomiting abdominal pain. Review of systems otherwise negative. She is never had any swelling of her tongue or any other body part like this before. Vitals in the ED was stable and she was saturating at 98% on room air. Chemistry was unremarkable and CBC was only significant for hemoglobin of 11.6. She has been admitted to be managed for angioedema of the tongue, likely precipitated by ciprofloxacin and/or losartan. Hospital Course: 1. Angioedema of the [id number] female with quite a few allergies presented with a swollen tongue. She states that she was unable to move it appropriately after taking Cipro for UTI. She did complete her antibiotic treatment for the urinary tract infection. She was discontinued on her Cipro and on her losartan and was started on Solu-Medrol and Benadryl as needed. On the day of discharge she felt completely back to normal and states that her tongue is now not swollen she can move it around. There is also some concern about significant weakness, she was recently discharged from a custodial and had home PT, however she says that she did have a history of frequent falls. PT and OT were consulted during her stay and they ambulated her and she was able to walk 350 feet with a wheeled walker and only contact-guard. It was discussed with her about the option of potentially going to a custodial versus going home and she would prefer to go home with her current home health. She is to continue all of her home medications except for her losartan. 2. Her other medical diagnoses were evaluated and her home medications were continued where appropriate. She is continued on her hydrochlorothiazide for hypertension however her losartan was stopped given the angioedema. She will need to follow-up with primary care physician to evaluate her blood pressure and the possible initiation of another vacation as an outpatient. Patient Problems: Active and Suspected Problems Angioedema (Acute) - Physical Exam General: Alert, Oriented x3, Cooperative, No apparent distress HEENT: Atraumatic, PERRLA, EOMI, Normocephalic, - - No macroglossia Oral: Moist Mucosa Neck: Supple, No JVD Lungs: Clear to auscultation, Normal air movement, No rhonchi, No wheeze, No rales, Diminished Cardiovascular: Regular rate, Regular Rhythm, Normal S1, Normal S2, No murmurs Abdomen: Soft, Non Tender, Non-Distended, No Hepato-splenomegaly Extremities: No edema, Capillary Refill Less than 3 Seconds Skin: No rashes, No breakdown Neurological: Neuro grossly intact, Sensory exam intact to light touch and pain Psych/Mental Status: Normal Affect, Appropriate Vital Signs Temp Pulse Resp BP Pulse Ox 97.7 F L 76 18 123/92 H 95 11/10/18 09:17 11/10/18 09:17 11/10/18 09:17 11/10/18 09:17 11/10/18 09:17 Oxygen Delivery Method Room Air Weight: 199 lb 8.293 oz Body Mass Index (BMI) 32.9 Intake and Output for Last 24 Hours 11/08/18 11/09/18 11/10/18 23:59 23:59 23:59 Intake Total 341 / 951 1360 / 1360 Output Total 600 / 600 Balance -259 / 351 1360 / 1360 POC Glucose 11/10/18 11/10/18 11/09/18 11:39 06:44 22:24 POC Glucose 286 H 238 H 239 H 11/09/18 16:22 POC Glucose 236 H Discharge Activity: Return to Normal Activity Call your doctor if you observe: Fever of 101 or Higher, Shortness of breath, Dizziness, Fainting spells, Swelling in the ankles, Chest pain, Increased palpitations (irregular heartbeat) Home Medications: Medications to take at Discharge Aspirin [Aspirin, Baby] 81 mg PO DAILY@0800 12/10/13 Hydrochlorothiazide [Hctz] 25 mg PO DAILY 12/10/13 Levothyroxine Sodium [Levoxyl] 100 mcg PO DAILY 12/10/13 Polyethylene Glycol 3350 [Miralax] 17 gm PO DAILY PRN 12/10/13 glyBURIDE [Micronase] 5 mg PO BIDCM 12/10/13 metFORMIN HCl [Glucophage] 500 mg PO TIDCM 12/10/13 Loteprednol Etabonate [Lotemax] 1 drop LEFT EYE BID 04/22/14 Vit C/E/Zn/Coppr/Lutein/Zeaxan [Preservision Areds 2 Softgel] 1,000 mg PO DAILY 04/22/14 Acetaminophen [Tylenol] 325 mg PO Q6H PRN PRN 08/25/14 Oxybutynin Chloride [Ditropan Xl] 10 mg PO DAILY 08/25/14 Venlafaxine HCl 75 mg PO BID 08/20/18 prednisoLONE eye drops (5 mL) [Pred Forte eye drops (5 mL)] 1 drop RIGHT EYE 4X/DAY 08/21/18 DiphenhydrAMINE [Benadryl] 25 mg PO Q6H PRN 11/09/18 Lidocaine [Lidoderm Patch] 1 patch TOPICAL DAILY 11/09/18 Mupirocin Calcium [Bactroban Cream] 1 applic TOPICAL TID 11/09/18 Primary Care Physician: Da Ocampo MD [Primary Care Provider] - Please follow up with your Primary Care Physician in: 3-5 days Disposition: Home with Home Health Minutes spent on discharge:: 35 Patient Condition:: Stable Medical Necessity - Tobacco Use Smoking Status: Never smoker Meaningful Use Info Meaningful Use Diagnoses (Choose all that apply): None applicable Code Visit Inpatient E&M: 11587 Disch Hosp
--- NOTE | 2018-11-10 14:42 | CHAPLAIN ---
Type of Pastoral Visit _x__ Initial Visit ___ Follow-up Visit ___ On-call Visit ___ General Patient Visit ___ Spiritual Assessment ___ Family Conference ___ Bereavement ___ Rapid Response ___ Code Blue ___ Other (describe below) Pastoral Care Referral From _x__ Patient ___ Family ___ Nurse ___ Physician ___ Chenille Machine Operator ___ Hydraulic Design Engineer ___ Other (describe below) Sacrament/Intervention _x__ Active listening ___ Anointing ___ Adventist ___ Bereavement ___ Communion _x__ Angeline exploration ___ _x__ Life review _x__ Prayer ___ Reconciliation ___ Sacrament of Sick _x__ Supportive presence ___ Wedding ___ Other (describe below) Pastoral Comments
--- NOTE | 2018-11-11 13:18 | CASEMGMT ---
VICENTA MARIE DC PHONE CALL DC DATE: 11/10/18 DC Disposition: Home Diagnosis on Discharge: Angioedema LACE/STRATA: 02/25 Intro role of CM to patient via phone. Lengthy conversation with patient re: symptoms-resolving. Reviewed medications, focused on not taking Cipro or Losartan per instructions. Reviewed making f/u appointment. Pt states Dr. Ocampo's office has walk in appointments and she will go Sat or . Reviewed symptoms of angioedema and importance of being seen quickly if symptoms occur. Pt voiced understanding. -No care improvement suggestions given, pt states she had excellent care. Trev LEGERN RN ACM
== END 2018-11-10 16:38 | disposition home health service (06) | DRG 916 ==
LOC: ED 11-09 00:15 → ICU 11-09 00:28 → MS3 11-09 11:46
PROVIDERS: Admitting Provider Student in an Organized Health Care Education/Training Program; Emergency Provider Emergency Medicine; Family Provider Family Medicine; PCP Family Medicine; Referring Provider Student in an Organized Health Care Education/Training Program; Visit Provider Family Medicine
DX: T78.3XXA Angioneurotic edema, initial encounter (principal); T36.8X5A Adverse effect of other systemic antibiotics, initial encounter; Y92.9 Unspecified place or not applicable; E11.9 Type 2 diabetes mellitus without complications; I10 Essential (primary) hypertension; E78.5 Hyperlipidemia, unspecified; E03.9 Hypothyroidism, unspecified; M19.90 Unspecified osteoarthritis, unspecified site; H35.30 Unspecified macular degeneration; F03.90 Unspecified dementia, unspecified severity, without behavioral disturbance, psychotic disturbance, mood disturbance, and anxiety; E66.9 Obesity, unspecified; Z68.33 Body mass index [BMI] 33.0-33.9, adult; Z79.84 Long term (current) use of oral hypoglycemic drugs; Z79.82 Long term (current) use of aspirin; Z79.899 Other long term (current) drug therapy; Z88.0 Allergy status to penicillin; Z88.2 Allergy status to sulfonamides; Z88.8 Allergy status to other drugs, medicaments and biological substances; Z91.81 History of falling; Z87.440 Personal history of urinary (tract) infections; Z85.43 Personal history of malignant neoplasm of ovary; Z87.19 Personal history of other diseases of the digestive system
CPT/HCPCS: 80048; 81001; 82962; 85025; 97162; 97165; 97530; 97802; 99285; J7030; A4216

== ENCOUNTER 2019-05-15 02:12 | Emergency (ER) | payer MEDICARE, OTHER, SELFPAY ==
[2018-11-09 01:20] VITALS: BMI 32.9
[2019-05-15 02:13] VITALS: BP 149/67; PULSE 73; RESP 18; TEMP 36.7; O2SAT 99; BMI 33.5
--- NOTE | 2019-05-15 02:27 | EKG12_ITS ---
Test Reason : WEAKNESS Blood Pressure : / mmHG Vent. Rate : 074 BPM Atrial Rate : 074 BPM P-R Int : 262 ms QRS Dur : 140 ms QT Int : 448 ms P-R-T Axes : 049 -40 116 degrees QTc Int : 497 ms Sinus rhythm with 1st degree A-V block Left axis deviation Left ventricular hypertrophy with QRS widening and repolarization abnormality Abnormal ECG Confirmed by TOM JUNG, TANA ([id number]), legal editor KRISTEL HILARIO ([id number]) on 05/18/2019 2:23:02 PM Referred By: [facility] Confirmed By:GIOVANNI SANTOS MD
--- NOTE | 2019-05-15 02:28 | ED.DCSUM_ITS ---
History of Present Illness Chief Complaint: Fatigue Informant: Patient Onset: Today Narrative: Patient presents with feeling of fatigue and weakness. She states she was talking to a friend on the phone. Just as they were hanging up she states she just felt very weak and fatigued. She thought maybe her blood sugar was low. She walked to the kitchen and ate some M&Ms followed by a muffin and a glass of milk. She felt a little bit better and walked to the living room where she sat in her easy chair and fell asleep. She woke approximately half an hour later and states that she just felt worse. She called EMS. She denies chest pain or palpitations. She denies shortness of breath. She does have a history of frequent UTIs. She has also been visiting her in a senior care where influenza has been going around and she is concerned about this. - Past Medical History (1) Angioedema Status: Resolved (2) DM (diabetes mellitus), type 2 Status: Chronic (3) Dementia Status: Chronic (4) HTN (hypertension) Status: Chronic (5) History of diverticulosis Status: Chronic (6) History of hyperlipidemia Status: Chronic (7) History of rheumatic fever Status: Chronic (8) Hypothyroidism Status: Chronic Past Medical History - Allergies and Home Meds Allergies/Adverse Reactions: Allergies amoxicillin [From Augmentin] Allergy (Verified 11/08/18 22:06) Itching cefdinir Allergy (Verified 11/08/18 22:06) Rash ciprofloxacin [From Cipro] Allergy (Verified 11/08/18 22:06) Swelling clavulanic acid [From Augmentin] Allergy (Verified 11/08/18 22:06) Itching doxycycline calcium [From Vibramycin] Allergy (Verified 11/08/18 22:06) Unknown doxycycline hyclate [From Vibramycin] Allergy (Verified 11/08/18 22:06) Unknown doxycycline monohydrate [From Vibramycin] Allergy (Verified 11/08/18 22:06) Unknown fluticasone Allergy (Verified 11/08/18 22:06) Unknown influenza virus vaccine, specific [Influenza Virus Vacc,Specific] Allergy (Verified 11/08/18 22:06) Swelling losartan Allergy (Verified 11/09/18 00:59) Angioedema pneumococcal vaccine [Pneumococcal Vaccine] Allergy (Verified 11/08/18 22:06) Rash promethazine HCl [From Phenergan] Allergy (Verified 11/08/18 22:06) Unknown tetracycline [Tetracycline] Allergy (Verified 11/08/18 22:06) Unknown cephalexin [From Keflex] Adverse Reaction (Verified 11/08/18 22:06) Rash metronidazole [From Flagyl] Adverse Reaction (Verified 11/08/18 22:06) Unknown sulfamethoxazole [From Bactrim] Adverse Reaction (Verified 11/08/18 22:06) Rash trimethoprim [From Bactrim] Adverse Reaction (Verified 11/08/18 22:06) Rash Primary Care Physician: Da Ocampo MD [Primary Care Provider] - Prior records reviewed: Yes Surgical History: cataract, hysterectomy, tonsillectomy - For ovarian cancer many years ago., - - Exploratory laparotomy for lysis of adhesions Lives: Alone Smoking Status: Never smoker - Family History Maternal Family History: Reports: - - Her mother of liver cancer Paternal Family History: Reports: Heart Disease Review of Systems General: Denies: Chills, Fever Eyes: Denies: Visual changes - bilaterally ENT: Denies: Bilateral ear pain Cardiovascular: Denies: Chest pain Respiratory: Denies: Dyspnea, Cough Gastrointestinal: Denies: Abdominal pain, Nausea, Vomiting, Diarrhea Genitourinary: Denies: Dysuria Musculoskeletal: Denies: Extremity Pain Skin: Denies: Rash Neurological: Reports: Weakness - Generalized weakness. Denies: Headache Hematologic: Denies: Easy bruising, Easy bleeding Physical Exam Vital Signs/Narrative: Vital Signs Temp Pulse Resp BP Pulse Ox 05/15/19 02:13 98.0 F 73 18 149/67 H 99 Inital Vital Signs reviewed: Yes General: Well nourished, Well developed Head: Normocephalic ENT: Moist mucous membranes Neck: Supple Cardiovascular: Regular rate, Regular rhythm, Murmur Respiratory: No distress, CTA bilaterally Abdomen: Soft, Nontender Extremities: Nontender Skin: Normal color Neurological: Alert, Oriented x3, - - No focal deficits Psychological: Normal affect Diagnostic/Tx/Re-eval 05/15/19 02:35 Mucosa - Nasopharyngeal Influenza Types A,B Direct FA (VIKY) - Final Laboratory Results 05/15/19 05/15/19 05/15/19 02:22 02:22 03:30 WBC 10.7 RBC 4.75 Hgb 13.0 Hct 40.2 MCV 84.6 MCH 27.4 MCHC 32.3 RDW Std Deviation 42.7 RDW Coeff of Marleni 13.8 Plt Count 252 MPV 9.4 Immature Gran % (Auto) 0.300 Neut % (Auto) 82.8 H Lymph % (Auto) 8.6 L Harney % (Auto) 7.3 Eos % (Auto) 0.8 Baso % (Auto) 0.2 Absolute Neuts (auto) 8.9 H Absolute Lymphs (auto) 0.92 Nucleated RBC % 0 Sodium 140 Potassium 3.6 Chloride 104 Carbon Dioxide 29.0 Anion Gap 7 BUN 23 H Creatinine 0.75 Estim Creat Clear Calc 38.36 Est GFR (MDRD) Af Amer 95 Est GFR (MDRD) Non-Af 79 BUN/Creatinine Ratio 30.7 H Glucose 109 H Calcium 9.4 Urine Color Yellow Urine Clarity Clear Urine pH 6.5 Ur Specific [place] 1.010 Urine Protein Negative Urine Glucose (UA) Normal Urine Ketones Negative Urine Occult Blood Negative Urine Nitrite Negative Urine Bilirubin Negative Urine Urobilinogen Normal Ur Leukocyte Esterase 100 H Urine RBC 5-10 SEEN Urine WBC 10-25 SEEN Ur Squamous Epith Cells 0-5 SEEN Urine Bacteria 0 SEEN Urine Mucus 0 SEEN - EKG Initial EKG Interpretation: Sinus Rhythm - Sinus at 74 with first-degree AV block. Unchanged from prior. - Medical Decision Making Patient is observed on equipment monitor phototypesetting. She is given IV fluids. Test results are discussed with her. Although she does not have bacteria noted in her urine, she does have significant white cells without epithelials. She tells me that she has a bottle of antibiotics that her doctor gave her to take when she gets a UTI as she does have multiple allergies. She does not member the name of this antibiotic, but she will start taking it when she gets home. ED Disposition - Plan for ED Patient: Disposition: Home or Assisted Living Diagnosis: Cystitis Instructions: Bladder Infection, Female (Adult) Referrals: Da Ocampo MD [Primary Care Provider] - Nahed Batista MD [STAFF PHYSICIAN] - Additional Instructions: Take your antibiotic for UTI as discussed.
[2019-05-15 02:33] LABS: Absolute Lymphocyte Count 0.92 X10^3/uL (0.83-4.51); Absolute Neutrophil Count 8.9 X10^3/uL (2.0-7.7); Basophil# 0.02 X10^3/uL; Basophil% 0.2 % (0-1); Eosinophil# 0.09 X10^3/uL; Eosinophils% 0.8 % (0-5); Hematocrit 40.2 % (37-47); Lymphocyte # 0.92 X10^3/ul (4.0); Lymphocyte % 8.6 % (19-41); Mean Corp Hgb Conc 32.3 g/dL (32-36); Mean Corpuscular Hgb 27.4 pg (27.0-32.0); Mean Corpuscular Volume 84.6 fL (81-99); Mean Platelet Vol. 9.4 fl (6.2-12.0); Monocyte# 0.78 X10^3/uL; Monocyte% 7.3 % (0-10); NRBC Flagged by Analyzer 0 % (0-5); Neutrophil # 8.88 X10^3/uL (2.7-7.7); Neutrophil % 82.8 % (47-70); Platelet Count 252 K/mm3 (150-450); RBC Distribution Width CV 13.8 % (11.6-14.6); RBC Distribution Width SD 42.7 fl (35.1-43.9); Red Blood Count 4.75 M/mm3 (4.2-5.4); White Blood Count 10.7 K/mm3 (4.4-11.0)
[2019-05-15 02:43] LABS: Anion Gap 7 (5-15); BUN 23 mg/dL (7-18); BUN/Creat Ratio 30.7 RATIO (10-20); Calcium,Total 9.4 mg/dL (8.5-10.1); Chloride 104 mmol/L (98-107); Creatinine, Serum 0.75 mg/dL (0.55-1.02); EST Glomerular Filtration Rate 79 mL/min (>60); Est Glom Filt Rate - Afr Amer 95 mL/min (>60); Estimated Creatinine Clearance 38.36 ml/min; Glucose 109 mg/dL (74-106); Potassium 3.6 mmol/L (3.5-5.1); Sodium Level 140 mmol/L (136-145)
[2019-05-15] MEDS: 0.9% Normal Saline 1,000 ML 150 ML IV (02:46)
[2019-05-15 03:39] LABS: Bacteria 0 SEEN /hpf (None Seen); Glucose, Dipstick Normal (Normal); Ketone-Dipstick Negative (Negative); Leukocyte Esterase-Dipstick 100 /ul (Negative); Mucous, Urine 0 SEEN /hpf (<or=2+); Nitrite-Dipstick Negative (Negative); Occult Blood-Urine Negative /ul (Negative); Protein-Dipstick Negative (Negative); Urine Bilirubin Dipstick Negative (Negative); Urine Urobilinogen Normal (Normal); Urine pH 6.5 (5.0 - 8.0)
[2019-05-15 03:40] LABS: Color, Urine Yellow (Yellow); Urine Clarity Clear (Clear)
[2019-05-15 04:09] LABS: Red Blood Cells-Urine 5-10 SEEN /hpf (0-5); Squamous Epithelial Cells - UA 0-5 SEEN /hpf (5-10); White Blood Cells 10-25 SEEN /hpf (0-5)
[2019-05-15 04:19] VITALS: BP 132/66; PULSE 77; RESP 16; O2SAT 95
--- NOTE | 2019-05-15 08:09 | ED.RN ---
DAUGHTER, MIRIAN PINEDA, STATED THAT SHE WOULD COME PICK PATIENT UP.
--- NOTE | 2019-05-15 08:30 | ED.RN ---
PATIENT DRESSED AND PLACED IN WHEELCHAIR IN THE WAITING ROOM WAITING FOR DAUGHTER FOR RIDE HOME.
== END 2019-05-15 08:31 | disposition home or self-care (01) ==
PROVIDERS: Emergency Provider Emergency Medicine; PCP Family Medicine
DX: N30.90 Cystitis, unspecified without hematuria (principal); I10 Essential (primary) hypertension; E11.9 Type 2 diabetes mellitus without complications; E03.9 Hypothyroidism, unspecified; E78.5 Hyperlipidemia, unspecified; F03.90 Unspecified dementia, unspecified severity, without behavioral disturbance, psychotic disturbance, mood disturbance, and anxiety; Z88.0 Allergy status to penicillin; Z79.82 Long term (current) use of aspirin; Z79.84 Long term (current) use of oral hypoglycemic drugs
CPT/HCPCS: 80048; 81001; 85025; 87077; 87086; 87088; 87186; 87804; 93005; 96360; 96361; 99285; J7030; A4216

== ENCOUNTER → 2019-05-20 14:56 | Outpatient (CLI) | payer MEDICARE, OTHER, SELFPAY ==
[2018-11-09 01:20] VITALS: BMI 32.9
[2019-05-15 02:13] VITALS: BMI 33.5
--- NOTE | 2019-05-20 15:02 | US_ITS ---
STUDY: RENAL ULTRASOUND - COMPLETE REASON FOR EXAM: Female, 84 years old. RECURRENT UTI TECHNIQUE: Ultrasound evaluation of the kidneys was performed with real-time and static goldsmith-scale imaging. COMPARISON: Ultrasound on February 22, 2015 CAT scan on August 17, 2018. FINDINGS: RIGHT KIDNEY: Normal location of the right kidney, which is normal in size. The right kidney measures 11 x 4.5 x 4.2 cm. There is a normal cortex of the right kidney. The renal cortex measures 1.2 cm. Lipomatous density within the right kidney measuring 8 x 7 x 6 mm. There is a tiny nonobstructing calculus There is no right hydronephrosis. DISTAL RIGHT URETER: There is non-visualization of the distal right ureter. There is no demonstrated right ureterovesical junction calculus. There is a visualized right ureteral jet. LEFT KIDNEY: Normal location of the left kidney, which is normal in size. The left kidney measures 11.2 x 5.3 x 4.7 cm. There is a normal cortex of the left kidney. The renal cortex measures 1.1 cm. Small lipomatous density measuring 1.5 x 1.1 x 1.3 cm. There are no left renal calculi. There is no left hydronephrosis. DISTAL LEFT URETER: There is non-visualization of the distal left ureter. There is no demonstrated left ureterovesical junction calculus. There is a visualized left ureteral jet. BLADDER: The distended urinary bladder has a volume of 34.2 ml.. There is a normal wall thickness of the distended urinary bladder. There is focal bladder wall mass measuring 2 x 2 .5 x 1.3 cm. There are no demonstrated bladder calculi. US/Kidney and Bladder IMPRESSION: Small bilateral lipomatous densities within the kidneys. Focal bladder wall mass measuring 2 x 2.[address] with contrast or cystoscopy would be helpful for further evaluation if clinically warranted Electronically Signed: Kota Valiente MD at 16:06 EST , Service support ,
== END ==
PROVIDERS: PCP Family Medicine; Referring Provider Urology; Visit Provider Urology
DX: N39.0 Urinary tract infection, site not specified (principal)
CPT/HCPCS: 76770

== ENCOUNTER → 2019-09-04 14:40 | Outpatient (CLI) | payer MEDICARE, OTHER, SELFPAY ==
--- NOTE | 2019-09-04 14:47 | ECHOD_ITS ---
Reason For Study: MV DISORDER Procedure This was a 2D Doppler, Color Flow transthoracic echocardiogram. Exam performed in department. Left Ventricle Normal LV size. The estimated ejection fraction is 55 %. Unable to assess diastolic dysfunction. No regional wall motion abnormalities noted. Right Ventricle Normal RV size. Normal systolic function. Atria Normal left atrium. Normal right atrium. No doppler evidence for ASD. Mitral Valve Moderate diffuse mitral valve calcification. There is moderate to severe mitral annular calcification. There is no mitral valve stenosis. Trivial mitral valve insufficiency. Tricuspid Valve There is no tricuspid stenosis. Trivial tricuspid valve insufficiency. Pulmonary artery systolic pressure is 30 mmHg. Aortic Valve Aortic sclerosis, no stenosis. Trisinus/trileaflet aortic valve. Mild aortic stenosis. No aortic valve insufficiency. Pulmonic Valve There is no pulmonic valvular stenosis. No pulmonic valve insufficiency. Great Vessels Normal aortic root. Pericardium/Pleural No pericardial effusion. MMode/2D Measurements & Calculations LVIDd: 4.8 cm IVSd: 1.2 cm LVOT diam: 2.2 cm LVIDs: 3.4 cm LVPWd: 1.2 cm LVOT area: 3.6 cm2 RVDd: 3.7 cm FS: 29.9 % Ao root diam: 3.2 cm LAV(MOD-bp): 50.5 ml LA A4 area: 17.4 cm2 LAV(MOD-bp) Indexed: 27.3 ml/m2 LAV(MOD-sp2): 52.0 ml LAV(MOD-sp4): 46.9 ml LA dimension(2D): 3.9 cm RA A4 area: 13.2 cm2 Time Measurements MV dec time: 0.17 sec Doppler Measurements & Calculations MV E max hamzah: 102.3 cm/sec Lat Peak E' Hamzah: 3.4 cm/sec Med Peak E' Hamzah: 6.5 cm/sec MV A max hamzah: 158.6 cm/sec E/E' lat: 29.9 E/E' med: 15.8 MV E/A: 0.64 MV V2 max: 153.1 cm/sec Ao V2 max: 212.8 cm/sec LV V1 max: 94.2 cm/sec MV max P.4 mmHg Ao max P.2 mmHg LV V1 max P.6 mmHg MV V2 mean: 79.4 cm/sec Ao V2 mean: 156.3 cm/sec LV V1 mean P.9 mmHg MV mean P.9 mmHg Ao mean P.6 mmHg LV V1 mean: 64.8 cm/sec MV V2 VTI: 34.0 cm Ao V2 VTI: 46.5 cm LV V1 VTI: 20.0 cm MVA(VTI): 2.1 cm2 LAILA(I,D): 1.6 cm2 LAILA(V,D): 1.6 cm2 SV(LVOT): 72.9 ml PA V2 max: 90.5 cm/sec TR max hamzah: 234.1 cm/sec TR max P.9 mmHg Interpretation Summary The estimated ejection fraction is 55 %. Unable to assess diastolic dysfunction. Mild aortic stenosis. Ordering Physician: Da Ocampo Referring Physician: Da Ocampo Performed By: Kirsty Eugene, MARNIE, RVT
== END ==
PROVIDERS: PCP Family Medicine; Referring Provider Family Medicine; Visit Provider Family Medicine
DX: I34.0 Nonrheumatic mitral (valve) insufficiency (principal)
CPT/HCPCS: 93306

== ENCOUNTER 2019-11-04 13:34 | Emergency (ER) | payer MEDICARE, OTHER, SELFPAY ==
[2019-11-04 13:36] VITALS: BP 148/62; PULSE 66; RESP 15; TEMP 36.8; O2SAT 96; BMI 28.1
[2019-11-04 13:41] VITALS: BP 148/62; PULSE 67
--- NOTE | 2019-11-04 14:16 | ED.DCSUM_ITS ---
History of Present Illness Chief Complaint: Fall Informant: Patient Narrative: Patient is an 84-year-old female who presents to the emergency department for right rib pain after a fall today. States she was getting up out of her chair and reached for her walker. She missed it and ended up falling down. She put her right arm out to catch herself. She felt a pull under her right ribs whenever she caught herself. She denies hitting her head or losing consciousness. She denies any other injury to her neck, back or extremities. She did ambulate after the event. She denies shortness of breath. Taking deep breaths and and certain movements does make the pain worse. She currently rates the pain is very mild. She denies shortness of breath associated with this. No abdominal pain or nausea/vomiting. She is not on anticoagulation and only takes a baby aspirin daily. Past Medical History - Allergies and Home Meds Allergies/Adverse Reactions: Allergies amoxicillin [From Augmentin] Allergy (Verified 11/04/19 13:35) Itching cefdinir Allergy (Verified 11/04/19 13:35) Rash ciprofloxacin [From Cipro] Allergy (Verified 11/04/19 13:35) Swelling clavulanic acid [From Augmentin] Allergy (Verified 11/04/19 13:35) Itching doxycycline calcium [From Vibramycin] Allergy (Verified 11/04/19 13:35) Unknown doxycycline hyclate [From Vibramycin] Allergy (Verified 11/04/19 13:35) Unknown doxycycline monohydrate [From Vibramycin] Allergy (Verified 11/04/19 13:35) Unknown fluticasone Allergy (Verified 11/04/19 13:35) Unknown influenza virus vaccine, specific [Influenza Virus Vacc,Specific] Allergy ( Verified 11/04/19 13:35) Swelling losartan Allergy (Verified 11/04/19 13:35) Angioedema pneumococcal vaccine [Pneumococcal Vaccine] Allergy (Verified 11/04/19 13:35) Rash promethazine HCl [From Phenergan] Allergy (Verified 11/04/19 13:35) Unknown tetracycline [Tetracycline] Allergy (Verified 11/04/19 13:35) Unknown cephalexin [From Keflex] Adverse Reaction (Verified 11/04/19 13:35) Rash metronidazole [From Flagyl] Adverse Reaction (Verified 11/04/19 13:35) Unknown sulfamethoxazole [From Bactrim] Adverse Reaction (Verified 11/04/19 13:35) Rash trimethoprim [From Bactrim] Adverse Reaction (Verified 11/04/19 13:35) Rash Primary Care Physician: Da Ocampo MD [Primary Care Provider] - 3-5 Days Prior records reviewed: Yes Past Medical History: - - Diabetes Surgical History: cataract, hysterectomy, tonsillectomy - For ovarian cancer many years ago., - - Exploratory laparotomy for lysis of adhesions Smoking Status: Never smoker - Family History Maternal Family History: Reports: - - Her mother of liver cancer Paternal Family History: Reports: Heart Disease Review of Systems All systems negative except as indicated General: Denies: Chills, Fever, Sweats Eyes: Denies: Visual changes - bilaterally, Diplopia ENT: Denies: Rhinorrhea, Sore throat Cardiovascular: Reports: Chest pain - Chest wall. Denies: Palpitations Respiratory: Denies: Dyspnea, Cough, Dyspnea on exertion Gastrointestinal: Denies: Abdominal pain, Nausea, Vomiting Genitourinary: Denies: Dysuria, Hematuria, Frequency Musculoskeletal: Denies: Neck pain, Back pain, Extremity Pain Skin: Denies: Rash, Wounds Neurological: Denies: Headache, Weakness, Numbness Physical Exam Vital Signs/Narrative: Vital Signs Temp Pulse Resp BP Pulse Ox 11/04/19 13:41 67 148/62 H 11/04/19 13:36 98.3 F 66 15 148/62 H 96 General: Well nourished, Well developed, No Acute Distress Head: Normocephalic, Atraumatic Eyes: Perrl, EOMI ENT: Moist mucous membranes, No rhinorrhea Neck: Supple, Nontender Cardiovascular: Regular rate, Regular rhythm, Murmur Respiratory: No distress, CTA bilaterally, Chest tenderness - Right anterior lateral ribs. No crepitus or deformity appreciable. Abdomen: Soft, Nontender, Nondistended Back: Nontender, Normal Inspection. Negative for: Spinal tenderness Extremities: Nontender, No edema. Negative for: Edema Skin: Normal color, No rash Neurological: Alert, Oriented x3, Cranial nerves II-XII grossly intact, Normal Strength, Normal Sensation Psychological: Normal affect, Normal Mood Diagnostic/Tx/Re-eval - Medical Decision Making Patient presents to the emergency department for a mechanical fall causing right rib pain. She denies hitting her head or losing consciousness. Not on anticoagulation. She is refusing anything for pain at this time and states it is very mild unless she is moving or coughing. Will check an x-ray note for any rib fractures. Does have equal breath sounds bilaterally. Vital signs within normal limits upon arrival and physical exam is benign. X-ray did show a nondisplaced fifth rib fracture. Patient otherwise not having significant pain. She is able to take full deep breaths. Able to talk in full sentences. I do feel she is capable of going home with pain management there. She is given a incentive spirometer. This was explained how to use by respiratory therapy and was given instructions on its use. She was informed that pneumonia is a risk associated with rib fractures. I did also write [place] to use for breakthrough pain if necessary. She understands that this can make her sleepy and she is not to use this if she is not having significant pain. Otherwise is to follow-up with her PCP. I did write for lidocaine patches to use daily as well. Warning signs and symptoms for which to return to the emergency department including developing any significant shortness of breath, cough, fevers or chills are reviewed. She understands and is agreeable this plan. Will discharge home in stable condition. ED Disposition - Plan for ED Patient: Disposition: Home or Assisted Living Diagnosis: Rib pain on right side, Closed traumatic nondisplaced fracture of rib Instructions: Using an Incentive Spirometer, ED Mechanical Fall, ED Rib Fx Prescriptions: Lidocaine [Lidoderm Patch] 1 patch TOPICAL DAILY 5 Days #5 patch Transmission Status: Received by [id number] Hydrocodone Bitart/Apap 5-325 [[place] 5MG-325MG] 1 tab PO Q6H PRN PRN 3 Days #8 tab PRN Reason: Pain Transmission Status: Received by [id number] Referrals: Da Ocampo MD [Primary Care Provider] - 3-5 Days
--- NOTE | 2019-11-04 14:25 | RAD_ITS ---
STUDY: X-RAY - UNILATERAL RIBS ( RIGHT ) WITH CHEST REASON FOR EXAM: Female, 84 years old. Right rib pain after fall, under breast TECHNIQUE - RIBS: 4 view(s) of the ribs. TECHNIQUE - CHEST: Single PA view of the chest. COMPARISON: Comparison is made with prior chest radiograph dated 01/16/2016. FINDINGS - RIBS: Nondisplaced fracture along the anterolateral aspect of the right fifth rib. FINDINGS - CHEST: Increased linear markings in the left midlung suggestive of mild scarring. Stable blunting of the right costophrenic angle. Normal size heart. Normal mediastinum and philippe. Normal visualized pulmonary arteries. There is atherosclerotic tortuosity of the aortic arch and descending thoracic aorta. There are diffuse degenerative changes of the visualized thoracic spine. Normal visualized ribs, clavicles, and shoulders. There is no demonstrated abnormality of the visualized soft tissue structures of the upper abdomen. RAD/Ribs Uni Min 3V w/PA Chest IMPRESSION: RIBS: Nondisplaced fracture of the right fifth rib anterolaterally. CHEST: No acute abnormalities. Electronically Signed: Kyle Oates, at 14:47 EDT , Service support ,
[2019-11-04 14:27] VITALS: O2SAT 98
[2019-11-04] MEDS: Acetaminophen 325 MG Tablet 650 MG PO (15:06)
[2019-11-04 16:05] VITALS: BP 151/75; PULSE 67; RESP 18; O2SAT 96
== END 2019-11-04 16:06 | disposition home or self-care (01) ==
LOC: ED 14:46
PROVIDERS: Emergency Provider Emergency Medicine; PCP Family Medicine
DX: R07.81 Pleurodynia (principal); S22.31XA Fracture of one rib, right side, initial encounter for closed fracture; W19.XXXA Unspecified fall, initial encounter
CPT/HCPCS: 71101; 99284

== ENCOUNTER 2020-08-02 13:51 | Outpatient (RCR) | payer MEDICARE, OTHER, SELFPAY ==
[2020-08-02 14:13] VITALS: BP 143/79; PULSE 79; RESP 18; TEMP 36; BMI 25.7
--- NOTE | 2020-08-02 15:12 | HP.PCM_ITS ---
History of Present Illness Date of Service: 08/02/20 Chief Complaint: Right buttock ulcer History of Wound: Bilateral buttock ulcers that occurred over the past several weeks. They were painful. She has been using and antibiotic ointment that was prescribed by her PCP and when she ran out of that she was using A&D ointment. She states that she has been doing a lot of sitting while coloring in adult coloring books. Progress of Wound: Ulcer is healed today on bilateral buttocks. [facility] Home Medications aspirin 81 mg PO DAILY@0800 12/10/13 [History Last Taken Unknown] glyburide 5 mg PO BIDCM 12/10/13 [History Last Taken Unknown] hydrochlorothiazide 25 mg PO DAILY 12/10/13 [History Last Taken Unknown] levothyroxine [Levoxyl] 100 mcg PO DAILY 12/10/13 [History Last Taken 08/31/14 07:30] metformin 500 mg PO TIDCM 12/10/13 [History Last Taken Unknown] polyethylene glycol 3350 17 g PO DAILY PRN 12/10/13 [History Last Taken Unknown] loteprednol etabonate [Lotemax] 1 drp LEFT EYE BID 04/22/14 [History Last Taken Unknown] vit C,X-Ib-xunyj-lutein-zeaxan [PreserVision AREDS-2] 1,000 mg PO DAILY 04/22/14 [History Last Taken Unknown] oxybutynin chloride [Ditropan XL] 10 mg PO DAILY 08/25/14 [History Last Taken Unknown] venlafaxine 75 mg PO BID 08/20/18 [History Last Taken Unknown] prednisolone acetate 1 drp RIGHT EYE 4X/DAY 08/21/18 [History Last Taken Unknown] diphenhydramine HCl 12.5 mg PO Q6H PRN 11/09/18 [History Last Taken Unknown] mupirocin calcium 1 applic TOPICAL TID 11/09/18 [History Last Taken Unknown] Allergy/AdvReac Type Severity Reaction Status Date / Time amoxicillin [From Augmentin] Allergy Itching Verified 11/04/19 13:35 cefdinir Allergy Rash Verified 11/04/19 13:35 ciprofloxacin [From Cipro] Allergy Swelling Verified 11/04/19 13:35 clavulanic acid Allergy Itching Verified 11/04/19 13:35 [From Augmentin] doxycycline calcium Allergy Unknown Verified 11/04/19 13:35 [From Vibramycin] doxycycline hyclate Allergy Unknown Verified 11/04/19 13:35 [From Vibramycin] doxycycline monohydrate Allergy Unknown Verified 11/04/19 13:35 [From Vibramycin] fluticasone Allergy Unknown Verified 11/04/19 13:35 influenza virus vaccine, Allergy Swelling Verified 11/04/19 13:35 specific [Influenza Virus Vacc,Specific] losartan Allergy Angioedema Verified 11/04/19 13:35 pneumococcal vaccine Allergy Rash Verified 11/04/19 13:35 [Pneumococcal Vaccine] promethazine HCl Allergy Unknown Verified 11/04/19 13:35 [From Phenergan] tetracycline [Tetracycline] Allergy Unknown Verified 11/04/19 13:35 cephalexin [From Keflex] AdvReac Rash Verified 11/04/19 13:35 metronidazole [From Flagyl] AdvReac Unknown Verified 11/04/19 13:35 sulfamethoxazole AdvReac Rash Verified 11/04/19 13:35 [From Bactrim] trimethoprim [From Bactrim] AdvReac Rash Verified 11/04/19 13:35 Social History Smoking Status: Never smoker ROS Constitutional Constitutional: Denies change in weight, chills, frequent falls or weakness Eyes Eyes: Reports none ENT HEENT: Reports none Cardiovascular Cardiovascular: Reports none Respiratory/Chest Respiratory/Chest: Reports none Gastrointestinal Gastrointestinal: Reports constipation Genitourinary Genitourinary: Reports urinary incontinence Musculoskeletal Musculoskeletal: Reports other Details: Walks with a cane or walker Integumentary Integumentary: Reports wounds Neurologic Neurologic: Reports none Psychiatric Psychiatric: Reports none Endocrine Endocrinology: Reports none Vital Signs Vital Signs Vital Signs: 08/02/20 14:13 Temperature 96.8 F L Temperature Source Temporal Pulse Rate 79 Respiratory Rate 18 Blood Pressure 143/79 H Blood Pressure Mean 100 Physical Exam Const alert, oriented x3 and no apparent distress General Appearance: cooperative and well kempt HEENT normocephalic Eyes PERRL Neck full ROM Resp normal air movement and clear to auscultation bilaterally Cardio regular rate and regular rhythm GI soft to palpation and non-tender Extremity full ROM and normal capillary refill Skin Wound Narrative: Bilateral buttocks with healed scarring. No open areas. Skin is dry. Neuro oriented x3 and CN's II-XII intact bilaterally Psych mental status grossly normal Appearance: grossly normal Debridement Note Debridement Note Post-Debridement Measurements and Additional Note: Post-Debridement Measurements/Treatment - Nurse 1 - General Ulcer Assessment Start: 08/02/20 14:09 Freq: Status: Active Protocol: EMI Activity Type Activity Date Activity User E-Sign Co-Sign Detail Recorded Client Recorded Date Recorded By Document 08/02/20 14:13 PL [id number] 08/02/20 14:23 PL 08/02/20 14:13 WC - Today's Visit Information Type of service Initial Visit Arrival Mode Walker Transfer Assistance Manual Patient Identification Verified (Name & Yes ) Patient Requires Transmission-Based No Precautions Safety Precautions NA Finger Stick Blood Sugar(mg/dl) (if 121 indicated): Blood Sugar Stated by Patient Height and Weight Height 5 ft 4 in Weight 150 lb Weight in Pounds 150.0 lbs Weight Measurement Method Estimated by Patient Body Mass Index (BMI) 25.7 BMI Classification Overweight BSA - Morris 1.73 Vital Signs Temperature (97.8 F-99.1 F) 96.8 F L Temperature Source Temporal Pulse Rate (60-100) 79 Respiratory Rate (12-18) 18 Blood Pressure (90/60-120/80) 143/79 H Blood Pressure Mean 100 History Since Last Visit- (Skip if this is Patient's initial visit) Have you changed medications since your No last visit? Any new allergies or adverse reactions No Had a fall/change in ADL's that may No increase risk of falls Signs or symptoms of abuse and/or No neglect since last visit Have you been in the hospital since your No last visit? Has dressing in place as prescribed Yes Has compression in place as prescribed N/A Has offloadiing in place as prescribed N/A Pain Scale: 0-10 Numeric Is Patient Pain Free? Yes Communication Assessment Preferred language Slovak Able to Read Yes Able to Write Yes Right Hearing Abillity Normal,Hard of Hearing Visual Assistive Devices Glasses - Nurse 1 - General Ulcer Measurement Start: 08/02/20 14:09 Freq: Status: Active Protocol: Activity Type Activity Date Activity User E-Sign Co-Sign Detail Recorded Client Recorded Date Recorded By Document 08/02/20 14:13 PL [id number] 08/02/20 14:23 PL 08/02/20 14:13 Wound Center Nurse 1 #1 Right Buttock -Combined with other wound No -Current Size (cm) - Length 0.1 -Current Size (cm) - Width 0.1 -Current Size (cm) - Depth 0.1 -Total Square Cm 0.01 -Date of Last Picture (Recall this 08/02/20 field) -Photo Taken Yes -Epithelialization None Present -Tunneling No -Undermining/Tunneling No -Circular Undermining No -Classification - Thickness Partial Thickness -Classification - Pressure Ulcer Stage 1 -Exudate Amt None Present -Granulation Amt Large (67-100%) -Granulation Quality [place] -Slough/Fibrin No -Necrosis Amt None Present (0 %) -Color (Alexia-wound Skin Appearance) Erythema -Temperature (Alexia-wound Skin No Abnormality Appearance) (Pt Warm) -Tenderness on Palpation (Alexia-wound No Skin Appearance) -Ulcer Cleansing Rinsed/ Irrigated with Saline -Foul Odor after Cleansing No WC - Nurse 2 - General Ulcer CM Notes Start: 08/02/20 14:09 Freq: Status: Active Protocol: Activity Type Activity Date Activity User E-Sign Co-Sign Detail Recorded Client Recorded Date Recorded By Document 08/02/20 14:50 [id number] 08/02/20 14:51 08/02/20 14:50 Wound Center Nurse 2 -Correct Patient No -Correct Side, Site, Position No -Correct Procedure No -Procedure Performed No -Post Debridement (cm) - Length 0 -Post Debridement (cm) - Width 0 -Post Debridement (cm) - Depth 0 -Total Square (Post) (cm) 0 -Area of Debridement (cm) - Length 0 -Area of Debridement (cm) - Width 0 -Total Square (Area) (cm) 0 -Wound/Ulcer Outcome Healed- Epithelialized Pain Scale: 0-10 Numeric Is Patient Pain Free? Yes - Nurse 3 - General Ulcer D/C NN Start: 08/02/20 14:09 Freq: Status: Active Protocol: Activity Type Activity Date Activity User E-Sign Co-Sign Detail Recorded Client Recorded Date Recorded By Document 08/02/20 14:52 JIM [id number] 08/02/20 14:53 08/02/20 14:52 WC - Visit Discharge Discharge Condition Stable Ambulatory Status Ambulatory, Walker Transportation Private Auto Medication Reconcilliation completed & Yes provided to patient/care provider Clinical Summary of Care Provided Yes No debridement was completed: No debridement was completed today Assessment & Plan Assessment/Plan (1) Excoriation of multiple sites of buttock: (2) Dry skin: (3) Urinary incontinence in female: PLAN: Patient has no open wounds today. She does have dry skin of her buttocks and areas that were open but are now healed. Encouraged patient to wash area daily with soap and water. Place A&D ointment or Aquaphor (any roderick r cream) to buttocks bilaterally to help moisten skin and protect from urinary incontinence. She wears urinary incontinence pants. Encouraged her to not sit for long periods of time while watching television or coloring in her coloring books. She should sift every 20 minutes so that she does not have pressure in the same area all the time. Avoid sleeping in recliner. Sleep in a bed. Follow up as needed or return to PCP if she experiences any other issues. Charges/Coding Visit Charges Office Visits / Consults: 15488 OV L4 Est
== END 2020-08-02 15:13 | disposition home or self-care (01) ==
LOC: WC 13:51
PROVIDERS: PCP Family Medicine; Referring Provider Family Medicine; Visit Provider Nurse Practitioner Family
DX: Z09 Encounter for follow-up examination after completed treatment for conditions other than malignant neoplasm (principal); Z79.899 Other long term (current) drug therapy; Z79.82 Long term (current) use of aspirin; Z79.84 Long term (current) use of oral hypoglycemic drugs; R32 Unspecified urinary incontinence
CPT/HCPCS: 99213; G0463

== ENCOUNTER 2020-09-19 05:37 | Inpatient (IN) | payer MEDICARE, OTHER, SELFPAY ==
[2020-09-19] VITALS (8 sets, daily range): BP systolic 92–204; BP diastolic 51–97; PULSE 65–82; RESP 18–20; TEMP 36–37.2; O2SAT 94–99; BMI 27.3; BMI 26.3
--- NOTE | 2020-09-19 05:50 | CT_ITS ---
STUDY: CT ABDOMEN AND PELVIS WITH CONTRAST REASON FOR EXAM: Female, 85 years old. Acute abdominal pain with distention and guarding. Prior history of diverticulitis. RADIATION DOSAGE (If Supplied By Facility): CTDIvol = ( 14.43 ) mGy, DLP = ( 837.55 ) mGycm TECHNIQUE: Transaxial images were obtained from the dome of the diaphragm to the symphysis pubis without oral contrast. IV 100mL Isovue-300 was administered. Sagittal and coronal images were reconstructed. Individualized dose optimization techniques were used for this CT. COMPARISON: August 17, 2018. FINDINGS: The visualized lung bases are unremarkable. The heart is not enlarged. Coronary artery calcifications. Calcification of the mitral annulus. No significant change in subcentimeter fat containing lesions in the liver best visualized on the study of July 2018. Normal gallbladder and extrahepatic biliary system. Normal spleen. Normal pancreas. Normal bilateral adrenal glands. 4 mm nonobstructing inferior pole right renal calculus. Subcentimeter lesion cortex left kidney unchanged since July 24 thousand 19 most compatible with an incidental angiomyolipoma. Small amount of ascites lateral to the right lobe of the liver. Normal visualized stomach. Fluid and debris-filled loops of small bowel, some dilated to 3.3 cm compatible with a distal/mid small bowel obstruction, b2b outside sales representative coronal image 40. Some loops contain air-fluid levels. Transition zone is in the anterior right hemipelvis. Stool is present throughout the colon which may represent constipation. The appendix is well visualized and appears normal. There are atherosclerotic changes of the abdominal aorta. Normal inferior vena cava. Normal retroperitoneum. No intra-abdominal free air. Normal urinary bladder. Uterus absent compatible with hysterectomy. No adnexal masses seen. Normal abdominal wall. Multilevel degenerative changes of the lower thoracic and lumbar spine. Degenerative changes of the hips. CT/Abdomen/Pelvis W IV Cont ONLY IMPRESSION: Mid/distal small bowel obstruction. Small fat-containing hepatic lesions, stable since July 2018 which time no further evaluation. 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 Small amount of right upper quadrant ascites. Constipation. Additional nonemergent findings as above. Electronically Signed: Juan C Kothari MD at 7:05 EDT , Service support ,
--- NOTE | 2020-09-19 05:53 | ED.VIS.GI ---
HPI HPI - GI History of Present Illness Chief Complaint: Abd Pain Informant: patient Abdominal Pain/Flank Pain Onset: Hours (0100) Context: Sudden Onset Timing: Continuous Quality: Aching Location: RUQ and LUQ Current Severity: 5/10 Maximum Severity: 8/10 Worsened by: Nothing Relieved by: Nothing Nausea/Vomiting/Emesis GI Symptom: Negative for Nausea and Vomiting Diarrhea/Melena/Hematochezia GI Symptom: Negative for Diarrhea, Melena and Hematochezia Associated Symptoms Associated Symptoms: Negative for Dysuria, Frequency and Hematuria Narrative Narrative: Is an elderly woman who arrived by ambulance because of severe upper abdominal pain. Pain started at 0100 while reading a book. Patient states at 2000 her daughter came to visit. She brought her a submarine sandwich. Patient believes she has food poisoning. Patient denies nausea, vomiting or diarrhea. Patient states the pain waxes and wanes and is significant. The pain presently is a 5 out of 5. Pain was more severe at 0100. She denies fever, chills or night sweats. She denies cardiac or respiratory symptoms. She denies dysuria, frequency, urgency or hematuria. She endorses history of diverticulitis. There is no history of trauma. There is no rash that she noted. Prior similar symptoms: No Recent Illness/Hospitalization: No PFSH PFS Medical History Anxiety Diabetes Heart murmur Hypertension Hypothyroidism Home Medications aspirin 81 mg PO DAILY@0800 12/10/13 [History Last Taken Unknown] hydrochlorothiazide 25 mg PO DAILY 12/10/13 [History Last Taken Unknown] levothyroxine [Levoxyl] 100 mcg PO DAILY 12/10/13 [History Last Taken 08/31/14 07:30] metformin 500 mg PO TIDCM 12/10/13 [History Last Taken Unknown] polyethylene glycol 3350 17 g PO DAILY PRN 12/10/13 [History Last Taken Unknown] PreserVision AREDS-2 1,000 mg PO DAILY 04/22/14 [History Last Taken Unknown] loteprednol etabonate [Lotemax] 1 drp LEFT EYE BID 04/22/14 [History Last Taken Unknown] oxybutynin chloride [Ditropan XL] 10 mg PO DAILY 08/25/14 [History Last Taken Unknown] venlafaxine 75 mg PO BID 08/20/18 [History Last Taken Unknown] prednisolone acetate 1 drp RIGHT EYE 4X/DAY 08/21/18 [History Last Taken Unknown] diphenhydramine HCl 12.5 mg PO Q6H PRN 11/09/18 [History Last Taken Unknown] mupirocin calcium 1 applic TOPICAL TID 11/09/18 [History Last Taken Unknown] ascorbic acid (vitamin C) [Vitamin C] 1,000 cap PO DAILY 09/19/20 [History Last Taken Unknown] Allergy/AdvReac Type Severity Reaction Status Date / Time amoxicillin [From Augmentin] Allergy Itching Verified 09/19/20 05:48 cefdinir Allergy Rash Verified 09/19/20 05:48 ciprofloxacin [From Cipro] Allergy Swelling Verified 09/19/20 05:48 clavulanic acid Allergy Itching Verified 09/19/20 05:48 [From Augmentin] doxycycline calcium Allergy Unknown Verified 09/19/20 05:48 [From Vibramycin] doxycycline hyclate Allergy Unknown Verified 09/19/20 05:48 [From Vibramycin] doxycycline monohydrate Allergy Unknown Verified 09/19/20 05:48 [From Vibramycin] fluticasone Allergy Unknown Verified 09/19/20 05:48 influenza virus vaccine, Allergy Swelling Verified 09/19/20 05:48 specific [Influenza Virus Vacc,Specific] losartan Allergy Angioedema Verified 09/19/20 05:48 pneumococcal vaccine Allergy Rash Verified 09/19/20 05:48 [Pneumococcal Vaccine] promethazine HCl Allergy Unknown Verified 09/19/20 05:48 [From Phenergan] tetracycline [Tetracycline] Allergy Unknown Verified 09/19/20 05:48 cephalexin [From Keflex] AdvReac Rash Verified 09/19/20 05:48 metronidazole [From Flagyl] AdvReac Unknown Verified 09/19/20 05:48 sulfamethoxazole AdvReac Rash Verified 09/19/20 05:48 [From Bactrim] trimethoprim [From Bactrim] AdvReac Rash Verified 09/19/20 05:48 Social History (Updated 09/19/20 @ 05:[address] Des Portillo MD) household members: none Smoking Status: Never smoker alcohol intake: current alcohol intake frequency: holidays/special occasions only substance use type: does not use ROS ROS ED Constitutional Constitutional ED: Denies chills, fever(s), subjective or sweats ENT ENT ED: Denies rhinorrhea or sore throat Cardiovascular Cardiovascular: Denies chest pain, orthopnea or palpitations Respiratory/Chest Respiratory/Chest: Denies cough, dyspnea, dyspnea on exertion, orthopnea or sputum Gastrointestinal Gastrointestinal: Denies abdominal pain, constipation, diarrhea, nausea or vomiting Genitourinary Genitourinary ED: Denies dysuria, hematuria or urinary frequency Musculoskeletal Musculoskeletal: Denies arthralgias, back pain or myalgias Integumentary Denies rash Neurologic Neurologic: Denies paresthesias or weakness Hematologic/Lymphatic Hematologic/Lymphatic: Denies easy bruising EXAM Physical Exam Const Vital Signs: 09/19/20 05:38 09/19/20 05:48 09/19/20 06:01 Temperature 96.8 F L Temperature Source Temporal Pulse Rate 67 Respiratory Rate 18 Blood Pressure 204/97 H 203/66 H 196/66 H Blood Pressure Mean 132 111 109 Pulse Ox 99 Oxygen Delivery Method Room Air Positive well nourished, well developed and obese General Appearance ED: well developed; Negative for pallor Nutritional Appearance: obese HEENT Reports TM's clear and dry mucous membranes normocephalic and atraumatic Tympanic Membrane ED: Yes TM's clear Mouth ED: Yes dry mucous membranes Mouth: dry mucous membranes Eyes PERRL and EOMs intact bilaterally Neck no lymphadenopathy, supple and no JVD General: Negative for tenderness Resp normal respiratory effort and clear to auscultation bilaterally Cardio regular rate, regular rhythm, S1 normal heart sound, S2 normal heart sound and no murmurs GI no masses; Negative for non-tender or non-distended Inspection: abdominal distention Auscultation: hypoactive bowel sounds; Negative for normoactive bowel sounds Palpation: tender, guarding and rigid LUQ and RUQ; Negative for soft, hepatomegaly, splenomegaly, hernia or pulsatile mass Back/Spine no CVA tenderness General Back: Negative for CVA tenderness Thoracic Spine / Upper Back: Negative for thoracic spinal tenderness Lumbar Spine / Lower Back: Negative for lumbar spinal tenderness Extremity Negative for full ROM General Extremety ED: Negative for edema General Extremity: Negative for edema Neuro CN's II-XII intact bilaterally Sensorium / Orientation: alert, oriented to person, oriented to place, oriented to time and orientation impaired Psych mental status grossly normal Skin no wounds General Skin Exam: Negative for jaundice or pallor Lesions: no lesions Rashes: no rashes and No rashes noted MDM MDM MDM Narrative Medical decision making narrative: Patient presents with acute bilateral abdominal pain. She reports last bowel movement yesterday. This may represent diverticulitis, perforated viscus, inflammatory bowel disorder, internal incarcerated hernia, early small bowel obstruction. Appropriate labs were ordered as well as CT of the abdomen pelvis with IV contrast. Patient was medicated with 4 mg of Zofran and 4 mg of morphine IV push. Patient was informed of her laboratory results and CAT scan results. Patient has a partial small bowel obstruction. Patient's pain improved with IV morphine nausea resolved with Zofran. NG was placed at low intermittent suction. Suspect adhesions due to prior surgery in 1979 by Ricky Pate Sr. Will have hospitalist paged for admission to medicine with consult to surgery. Dr. Smith was paged since he is pumping station supervisor. Lab Data Attestation: I reviewed the patient's lab results. Lab results narrative: CBC and differential are unremarkable. Comprehensive metabolic panel and lipase are unremarkable. Labs: Laboratory Results - last 24 hr 09/19/20 09/19/20 05:45 05:45 WBC 6.6 RBC 4.71 Hgb 13.1 Hct 41.6 MCV 88.3 MCH 27.8 MCHC 31.5 L RDW Std Deviation 41.3 RDW Coeff of Marleni 12.7 Plt Count 261 MPV 10.1 Immature Gran % (Auto) 0.300 Neut % (Auto) 56.3 Lymph % (Auto) 33.7 [place] % (Auto) 7.7 Eos % (Auto) 1.5 Baso % (Auto) 0.5 Absolute Neuts (auto) 3.7 Absolute Lymphs (auto) 2.22 Nucleated RBC % 0 Sodium 139 Potassium 3.7 Chloride 102 Carbon Dioxide 29.0 Anion Gap 8 BUN 21 H Creatinine 0.81 Estim Creat Clear Calc 44.65 Est GFR (MDRD) Af Amer 87 Est GFR (MDRD) Non-Af 72 BUN/Creatinine Ratio 26.0 H Glucose 151 H Calcium 9.6 Total Bilirubin 0.40 AST 15 ALT 23 Alkaline Phosphatase 107 Total Protein 7.4 Albumin 3.7 Globulin 3.7 Albumin/Globulin Ratio 1.0 Lipase 106 Radiography Diagnostic Testing: Radiology Impression Abdomen/Pelvis CT 09/19/20 05:50 IMPRESSION: Mid/distal small bowel obstruction. Small fat-containing hepatic lesions, stable since July 2018 which time no further evaluation. 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 Small amount of right upper quadrant ascites. Constipation. Additional nonemergent findings as above. Electronically Signed: Juan C Kothari MD at 7:05 EDT , Service support , Discharge Plan Triage Chief Complaint: Abd Pain ED Provider: Des Portillo Dx/Rx/DC Orders Clinical Impression: Partial obstruction of small intestine Prescriptions: No Action aspirin 81 MG tablet,chewable 81 mg PO DAILY@0800 RF: 0 metformin 500 MG tablet 500 mg PO TIDCM RF: 0 polyethylene glycol 3350 17 GM powder in packet 17 g PO DAILY PRN (Reason: Constipation) RF: 0 levothyroxine [Levoxyl] 88 MCG tablet 100 mcg PO DAILY RF: 0 hydrochlorothiazide 25 MG tablet 25 mg PO DAILY RF: 0 loteprednol etabonate [Lotemax] 1 DROP drops,suspension 1 drp Left Eye BID RF: 0 PreserVision AREDS-2 1 EACH capsule 1,000 mg PO DAILY RF: 0 oxybutynin chloride [Ditropan XL] 10 MG tablet extended release 24hr 10 mg PO DAILY RF: 0 venlafaxine 75 MG tablet 75 mg PO BID RF: 0 prednisolone acetate 1 % drops,suspension 1 drp Right Eye 4X/DAY RF: 0 mupirocin calcium 15 GM cream 1 applic topical TID RF: 0 diphenhydramine HCl 25 MG capsule 12.5 mg PO Q6H PRN (Reason: Itching & Insomnia) RF: 0 Vitamin C 1,000 mg Capsule, Extended Release 1,000 cap PO DAILY RF: 0 Primary Care Provider: Da Ocampo Referrals: Da Ocampo MD [Primary Care Provider] - Disposition Disposition: Acute Care [facility]
[2020-09-19] MEDS: Ondansetron 4 MG/2 ML Vial IV (05:57)
[2020-09-19 05:58] LABS: Absolute Lymphocyte Count 2.22 X10^3/uL (0.83-4.51); Absolute Neutrophil Count 3.7 X10^3/uL (2.0-7.7); Basophil# 0.03 X10^3/uL; Basophil% 0.5 % (0-1); Eosinophils% 1.5 % (0-5); Hematocrit 41.6 % (37-47); Hemoglobin 13.1 g/dL (12.0-15.0); Lymphocyte # 2.22 X10^3/ul (0.83-4.51); Lymphocyte % 33.7 % (19-41); Mean Corp Hgb Conc 31.5 g/dL (32-36); Mean Corpuscular Hgb 27.8 pg (27.0-32.0); Mean Corpuscular Volume 88.3 fL (81-99); Mean Platelet Vol. 10.1 fl (6.2-12.0); Monocyte# 0.51 X10^3/uL; Monocyte% 7.7 % (0-10); NRBC Flagged by Analyzer 0 % (0-5); Neutrophil # 3.71 X10^3/uL (2.7-7.7); Neutrophil % 56.3 % (47-70); Platelet Count 261 K/mm3 (150-450); RBC Distribution Width CV 12.7 % (11.6-14.6); RBC Distribution Width SD 41.3 fl (35.1-43.9); Red Blood Count 4.71 M/mm3 (4.2-5.4); White Blood Count 6.6 K/mm3 (4.4-11.0)
[2020-09-19] MEDS: Morphine 4 MG/ML Syringe IV (05:59)
[2020-09-19 06:09] LABS: Albumin, Serum 3.7 g/dL (3.2-5.0); BUN 21 mg/dL (7-18); Creatinine, Serum 0.81 mg/dL (0.55-1.02); EST Glomerular Filtration Rate 72 mL/min (>60); Est Glom Filt Rate - Afr Amer 87 mL/min (>60); Estimated Creatinine Clearance 44.65 ml/min; Globulin 3.7 g/dL (2.2-4.2); Glucose 151 mg/dL (74-106); Protein, Total 7.4 g/dL (6.4-8.2)
[2020-09-19 06:10] LABS: AST(SGOT) 15 U/L (15-37); Alanine Aminotransfer ALT/SGPT 23 U/L (13-56); Alkaline Phosphatase 107 U/L (45-117); Anion Gap 8 (5-15); Calcium,Total 9.6 mg/dL (8.5-10.1); Chloride 102 mmol/L (98-107); Lipase 106 U/L (73-393); Potassium 3.7 mmol/L (3.5-5.1); Sodium Level 139 mmol/L (136-145)
--- NOTE | 2020-09-19 07:36 | ED.RN ---
CALLED PT'S DAUGHTER MIRIAN REQUESTED AND NOTIFIED HER OF PT STATUS
--- NOTE | 2020-09-19 09:30 | PCM.HP.STD ---
HPI - General General Date of Admission: 09/19/20 Date of Service: 09/19/20 Chief Complaint: Abdominal pain, nausea HPI Narrative ANGE LAZARO, is a 85 F who presents to the emergency room at [facility] with a chief complaint of lower abdominal pain and nausea which began approximately 1 AM this morning. Patient denies any diarrhea, she denies any emesis, she denies any hematochezia or melena. Work-up in the emergency room showed the patient to be afebrile, blood pressure was elevated, labs were obtained which showed a normal white blood cell count, hemoglobin was also normal. Patient's chemistry profile was unremarkable except for glucose of 151. Imaging studies were obtained, there was noted to be admitted/distal small bowel obstruction and constipation. General surgery was contacted, they agreed to see the patient in consultation, the emergency room physician felt that the patient would benefit from an NG tube but the patient refused placement at this time, at the time of my examination, abdomen was soft and did not appear distended. I made general surgery aware that we are not going to place an NG tube at this time and they were okay with this. Patient will be admitted to [place] [id number], placed on IV fluids, and seen by general surgery in consultation. Oral medications will be held at this time [facility] Medical History (Updated 09/19/20 @ 08:53 by Livier Stephens) Anxiety Cancer Diabetes Heart murmur Hypertension Hypothyroidism Home Medications aspirin 81 mg PO DAILY@0800 12/10/13 [History Last Taken Unknown] hydrochlorothiazide 25 mg PO DAILY 12/10/13 [History Last Taken Unknown] levothyroxine [Levoxyl] 100 mcg PO DAILY 12/10/13 [History Last Taken 08/31/14 07:30] metformin 500 mg PO TIDCM 12/10/13 [History Last Taken Unknown] polyethylene glycol 3350 17 g PO DAILY PRN 12/10/13 [History Last Taken Unknown] PreserVision AREDS-2 1,000 mg PO DAILY 04/22/14 [History Last Taken Unknown] loteprednol etabonate [Lotemax] 1 drp LEFT EYE BID 04/22/14 [History Last Taken Unknown] oxybutynin chloride [Ditropan XL] 10 mg PO DAILY 08/25/14 [History Last Taken Unknown] venlafaxine 75 mg PO BID 08/20/18 [History Last Taken Unknown] prednisolone acetate 1 drp RIGHT EYE 4X/DAY 08/21/18 [History Last Taken Unknown] diphenhydramine HCl 12.5 mg PO Q6H PRN 11/09/18 [History Last Taken Unknown] mupirocin calcium 1 applic TOPICAL TID 11/09/18 [History Last Taken Unknown] ascorbic acid (vitamin C) [Vitamin C] 1,000 cap PO DAILY 09/19/20 [History Last Taken Unknown] Allergy/AdvReac Type Severity Reaction Status Date / Time amoxicillin [From Augmentin] Allergy Itching Verified 09/19/20 05:48 cefdinir Allergy Rash Verified 09/19/20 05:48 ciprofloxacin [From Cipro] Allergy Swelling Verified 09/19/20 05:48 clavulanic acid Allergy Itching Verified 09/19/20 05:48 [From Augmentin] doxycycline calcium Allergy Unknown Verified 09/19/20 05:48 [From Vibramycin] doxycycline hyclate Allergy Unknown Verified 09/19/20 05:48 [From Vibramycin] doxycycline monohydrate Allergy Unknown Verified 09/19/20 05:48 [From Vibramycin] fluticasone Allergy Unknown Verified 09/19/20 05:48 influenza virus vaccine, Allergy Swelling Verified 09/19/20 05:48 specific [Influenza Virus Vacc,Specific] losartan Allergy Angioedema Verified 09/19/20 05:48 pneumococcal vaccine Allergy Rash Verified 09/19/20 05:48 [Pneumococcal Vaccine] promethazine HCl Allergy Unknown Verified 09/19/20 05:48 [From Phenergan] tetracycline [Tetracycline] Allergy Unknown Verified 09/19/20 05:48 cephalexin [From Keflex] AdvReac Rash Verified 09/19/20 05:48 metronidazole [From Flagyl] AdvReac Unknown Verified 09/19/20 05:48 sulfamethoxazole AdvReac Rash Verified 09/19/20 05:48 [From Bactrim] trimethoprim [From Bactrim] AdvReac Rash Verified 09/19/20 05:48 no significant family history Surgical History (Updated 09/19/20 @ 09:[address] Elliott Armando DO) History of cataract surgery History of exploratory laparotomy History of hysterectomy Hx of tonsillectomy Social History (Updated 09/19/20 @ 05:[address] Des Portillo MD) household members: none Smoking Status: Never smoker alcohol intake: current alcohol intake frequency: holidays/special occasions only substance use type: does not use ROS Constitutional Constitutional: Denies anorexia, change in weight, fatigue, fever(s), malaise, night sweats or weakness Eyes Eyes: Denies blurry vision, change in vision, discharge from eye(s) or eye pain ENT HEENT: Denies abnormal hearing, dysphagia, ear pain or epistaxis Cardiovascular Cardiovascular: Denies chest pain, claudication, dyspnea on exertion, edema or palpitations Respiratory/Chest Respiratory/Chest: Denies cough, dyspnea, hemoptysis, shortness of breath at rest or shortness of breath with exertion Gastrointestinal Gastrointestinal: Reports abdominal pain and nausea; Denies constipation, diarrhea, dyspepsia, hematemesis, hematochezia, melena or vomiting Genitourinary Genitourinary: Denies burning urination, dysuria, hematuria, urinary frequency, urinary hesitancy, urinary incontinence or urinary urgency Musculoskeletal Musculoskeletal: Denies arthralgias, back pain, joint pain, joint stiffness, joint swelling, myalgias or neck pain Neurologic Neurologic: Denies abnormal gait, abnormal speech, dizziness, focal weakness, headache(s), loss of vision, numbness, other visual disturbances, paresthesias, syncope or tingling Psychiatric Psychiatric: Reports depression; Denies anxiety, cognitive impairment, irritability, mood swings or suicidal ideation Endocrine Endocrinology: Denies change in body appearance, cold intolerance, excessive sweating, heat intolerance, polydipsia or polyuria Hematologic/Lymphatic Hematologic/Lymphatic: Denies none, anemia, easy bleeding, easy bruising or lymphadenopathy Allergic/Immunologic Allergic/Immunologic: Denies rhinitis, urticaria, eczemia or asthma Vital Signs Vital Signs Vital Signs: 09/19/20 05:38 09/19/20 05:48 09/19/20 06:01 Temperature 96.8 F L Temperature Source Temporal Pulse Rate 67 Respiratory Rate 18 Blood Pressure 204/97 H 203/66 H 196/66 H Blood Pressure Mean 132 111 109 Blood Pressure Source Blood Pressure Position Blood Pressure Location Pulse Ox 99 Oxygen Delivery Method Room Air 09/19/20 07:31 09/19/20 08:45 Temperature 98.3 F 98.3 F Temperature Source Temporal Temporal Pulse Rate 82 78 Respiratory Rate 18 20 H Blood Pressure 167/82 H 122/69 H Blood Pressure Mean 110 86 Blood Pressure Source Monitor Blood Pressure Position Sitting Blood Pressure Location Right Arm Pulse Ox 94 96 Oxygen Delivery Method Room Air Room Air Weight Weight: 72.3 kg Body Mass Index (BMI) 27.3 Physical Exam Const alert, oriented x3, no apparent distress, average body habitus, healthy appearing and well nourished General Appearance: cooperative, well kempt and well developed Orientation / Consciousness: awake, oriented to person, oriented to place and oriented to time HEENT normocephalic, head/scalp atraumatic, hearing grossly normal bilaterally and moist oral mucous membranes Eyes PERRL, EOMs intact bilaterally and conjunctivae normal Neck nuchal rigidity, supple, no JVD, thyroid normal and no carotid bruits General: trachea midline Resp normal respiratory effort, no retractions, no use of accessory muscles and clear to auscultation bilaterally Auscultation: Negative for rales, rhonchi or wheezes Cardio regular rate, regular rhythm, S1 normal heart sound, S2 normal heart sound, no murmurs, no rub and no gallops GI normal to inspection, nondistended, normoactive bowel sounds, soft to palpation, non-tender and non-distended Extremity normal to inspection and no clubbing, cyanosis or edema Skin no rashes or lesions noted, no wounds, skin turgor normal, no jaundice and no petechiae General Skin Exam: no breakdown Neuro oriented x3, CN's II-XII intact bilaterally, no focal motor deficits and no sensory deficits noted Sensorium / Orientation: awake and alert Speech: speech normal Psych thought process normal and affect normal Results Lab / Micro Data Result Diagrams: 09/19/20 05:45 09/19/20 05:45 Labs: Laboratory Results - last 24 hr 09/19/20 09/19/20 05:45 05:45 WBC 6.6 RBC 4.71 Hgb 13.1 Hct 41.6 MCV 88.3 MCH 27.8 MCHC 31.5 L RDW Std Deviation 41.3 RDW Coeff of [place] 12.7 Plt Count 261 MPV 10.1 Immature Gran % (Auto) 0.300 Neut % (Auto) 56.3 Lymph % (Auto) 33.7 [place] % (Auto) 7.7 Eos % (Auto) 1.5 Baso % (Auto) 0.5 Absolute Neuts (auto) 3.7 Absolute Lymphs (auto) 2.22 Nucleated RBC % 0 Sodium 139 Potassium 3.7 Chloride 102 Carbon Dioxide 29.0 Anion Gap 8 BUN 21 H Creatinine 0.81 Estim Creat Clear Calc 44.65 Est GFR (MDRD) Af Amer 87 Est GFR (MDRD) Non-Af 72 BUN/Creatinine Ratio 26.0 H Glucose 151 H Calcium 9.6 Total Bilirubin 0.40 AST 15 ALT 23 Alkaline Phosphatase 107 Total Protein 7.4 Albumin 3.7 Globulin 3.7 Albumin/Globulin Ratio 1.0 Lipase 106 Radiology Impression Abdomen/Pelvis CT 09/19/20 05:50 IMPRESSION: Mid/distal small bowel obstruction. Small fat-containing hepatic lesions, stable since July 2018 which time no further evaluation. 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 Small amount of right upper quadrant ascites. Constipation. Additional nonemergent findings as above. Electronically Signed: Juan C Kothari MD at 7:05 EDT , Service support , Assessment & Plan Assessment/Plan (1) Partial obstruction of small intestine: PLAN: 1. Partial small bowel obstruction-etiology unclear, patient will be admitted to [facility] 3, IV fluids will be administered, patient will be n.p.o. except for chips and sips, patient's medications will be held at this time, she will be seen in consultation by general surgery. #2 type 2 diabetes-patient is currently only on Metformin, I do not feel the patient needs blood sugar monitoring at this time #3 hyperlipidemia #4 hypothyroidism-patient's thyroid medication will be held at this time due to her n.p.o. status #5 macular degeneration #6 hypertension-patient's blood sugar will be monitored, she may need to be placed on IV blood pressure medications, she is only on hydrochlorothiazide for her blood pressure. #7 chronic depression-patient's Effexor will be held at this time due to her n.p.o. status Charges/Coding Multi Select Codes Visit Charges Visit Charges: 73576 Init Hosp L3
[2020-09-19] MEDS: Heparin Injection (Vial) 5,000 UNIT/ML VIAL 5000 UNIT SC ×2 (11:14→22:04)
[2020-09-19] MEDS: 0.9% Normal Saline 1,000 ML 100 ML IV ×2 (11:16→20:29)
--- NOTE | 2020-09-19 13:46 | CON.PCM.SX_ITS ---
Assessment & Plan Assessment/Plan (1) Partial obstruction of small intestine: PLAN: At the present time I think should she can be managed without an NG tube. I like for her to be chewing gum and trying some ice chips as well as ambulating the hallways. When she starts passing flatus then I think advancing her to clear liquids to be appropriate. I do not think that she is going to need any surgical intervention at this time. HPI Consult Data Date of Consult: 09/19/20 HPI Narrative HPI Narrative: ANGE LAZARO, is a 85 F who presents to the emergency room at [facility] with a chief complaint of lower abdominal pain and nausea which began approximately 1 AM this morning. Patient denies any diarrhea, she denies any emesis, she denies any hematochezia or melena. Work-up in the emergency room showed the patient to be afebrile, blood pressure was elevated, labs were obtained which showed a normal white blood cell count, hemoglobin was also normal. Patient's chemistry profile was unremarkable except for glucose of 151. Imaging studies were obtained, there was noted to be admitted/distal small bowel obstruction and constipation. General surgery was contacted, they agreed to see the patient in consultation, the emergency room physician felt that the patient would benefit from an NG tube but the patient refused placement at this time, at the time of my examination, abdomen was soft and did not appear distended. I made general surgery aware that we are not going to place an NG tube at this time and they were okay with this. The present time she has no abdominal pain. She does not have any nausea. She feels much better than she did when she went to the emergency department. [facility] Medical History Anxiety Cancer Diabetes Heart murmur Hypertension Hypothyroidism Home Medications aspirin 81 mg PO DAILY@0800 12/10/13 [History Last Taken Unknown] hydrochlorothiazide 25 mg PO DAILY 12/10/13 [History Last Taken Unknown] levothyroxine [Levoxyl] 100 mcg PO DAILY 12/10/13 [History Last Taken 08/31/14 07:30] metformin 500 mg PO TIDCM 12/10/13 [History Last Taken Unknown] polyethylene glycol 3350 17 g PO DAILY PRN 12/10/13 [History Last Taken Unknown] PreserVision AREDS-2 1,000 mg PO DAILY 04/22/14 [History Last Taken Unknown] oxybutynin chloride [Ditropan XL] 10 mg PO DAILY 08/25/14 [History Last Taken Unknown] venlafaxine 75 mg PO BID 08/20/18 [History Last Taken Unknown] diphenhydramine HCl 12.5 mg PO Q6H PRN 11/09/18 [History Last Taken Unknown] mupirocin calcium 1 applic TOPICAL TID 11/09/18 [History Last Taken Unknown] ascorbic acid (vitamin C) [Vitamin C] 1,000 cap PO DAILY 09/19/20 [History Last Taken Unknown] erythromycin 1 applic RIGHT EYE QHS 09/19/20 [History Last Taken Unknown] neomycin-polymyxin B-dexameth [Maxitrol] 1 applic EACH EYE BID 09/19/20 [History Last Taken Unknown] Allergy/AdvReac Type Severity Reaction Status Date / Time amoxicillin [From Augmentin] Allergy Itching Verified 09/19/20 05:48 cefdinir Allergy Rash Verified 09/19/20 05:48 ciprofloxacin [From Cipro] Allergy Swelling Verified 09/19/20 05:48 clavulanic acid Allergy Itching Verified 09/19/20 05:48 [From Augmentin] doxycycline calcium Allergy Unknown Verified 09/19/20 05:48 [From Vibramycin] doxycycline hyclate Allergy Unknown Verified 09/19/20 05:48 [From Vibramycin] doxycycline monohydrate Allergy Unknown Verified 09/19/20 05:48 [From Vibramycin] fluticasone Allergy Unknown Verified 09/19/20 05:48 influenza virus vaccine, Allergy Swelling Verified 09/19/20 05:48 specific [Influenza Virus Vacc,Specific] losartan Allergy Angioedema Verified 09/19/20 05:48 pneumococcal vaccine Allergy Rash Verified 09/19/20 05:48 [Pneumococcal Vaccine] promethazine HCl Allergy Unknown Verified 09/19/20 05:48 [From Phenergan] tetracycline [Tetracycline] Allergy Unknown Verified 09/19/20 05:48 cephalexin [From Keflex] AdvReac Rash Verified 09/19/20 05:48 metronidazole [From Flagyl] AdvReac Unknown Verified 09/19/20 05:48 sulfamethoxazole AdvReac Rash Verified 09/19/20 05:48 [From Bactrim] trimethoprim [From Bactrim] AdvReac Rash Verified 09/19/20 05:48 Surgical History History of cataract surgery History of exploratory laparotomy History of hysterectomy Hx of tonsillectomy Social History household members: none Smoking Status: Never smoker alcohol intake: current alcohol intake frequency: holidays/special occasions only substance use type: does not use ROS Constitutional Constitutional: Denies anorexia or weight gain Cardiovascular Cardiovascular: Denies chest pain Respiratory/Chest Respiratory/Chest: Denies cough or dyspnea Gastrointestinal Gastrointestinal: Denies abdominal pain, nausea or vomiting Physical Exam Const alert, oriented x3 and no apparent distress General Appearance: cooperative Eyes PERRL and EOMs intact bilaterally Resp normal respiratory effort and clear to auscultation bilaterally Cardio Rate: regular rate Rhythm: regular rhythm GI soft to palpation, non-tender and non-distended Palpation: Negative for ascites Lab / Micro Data Result Diagrams: 09/19/20 05:45 09/19/20 05:45 Labs: Laboratory Results - last 24 hr 09/19/20 09/19/20 05:45 05:45 WBC 6.6 RBC 4.71 Hgb 13.1 Hct 41.6 MCV 88.3 MCH 27.8 MCHC 31.5 L RDW Std Deviation 41.3 RDW Coeff of [place] 12.7 Plt Count 261 MPV 10.1 Immature Gran % (Auto) 0.300 Neut % (Auto) 56.3 Lymph % (Auto) 33.7 [place] % (Auto) 7.7 Eos % (Auto) 1.5 Baso % (Auto) 0.5 Absolute Neuts (auto) 3.7 Absolute Lymphs (auto) 2.22 Nucleated RBC % 0 Sodium 139 Potassium 3.7 Chloride 102 Carbon Dioxide 29.0 Anion Gap 8 BUN 21 H Creatinine 0.81 Estim Creat Clear Calc 44.65 Est GFR (MDRD) Af Amer 87 Est GFR (MDRD) Non-Af 72 BUN/Creatinine Ratio 26.0 H Glucose 151 H Calcium 9.6 Total Bilirubin 0.40 AST 15 ALT 23 Alkaline Phosphatase 107 Total Protein 7.4 Albumin 3.7 Globulin 3.7 Albumin/Globulin Ratio 1.0 Lipase 106 Radiology Impression Abdomen/Pelvis CT 09/19/20 05:50 IMPRESSION: Mid/distal small bowel obstruction. Small fat-containing hepatic lesions, stable since July 2018 which time no further evaluation. 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 Small amount of right upper quadrant ascites. Constipation. Additional nonemergent findings as above. Electronically Signed: Juan C Kothari MD at 7:05 EDT , Service support ,
[2020-09-19] MEDS: Neomycin/Polymyxin/Dexameth OINT 3.5GM OPTH.TUBE 1 APPLIC EACH EYE ×2 (13:54→22:04)
[2020-09-19] MEDS: Erythromycin Base 1 OPTH.TUBE 1 APPLIC RIGHT EYE (22:04)
[2020-09-20 02:03] VITALS: BP 166/54; PULSE 63; RESP 18; TEMP 36.8; O2SAT 97
[2020-09-20 05:48] VITALS: BP 152/53; PULSE 59; RESP 18; TEMP 36.9; O2SAT 100
[2020-09-20] MEDS: 0.9% Normal Saline 1,000 ML 100 ML IV ×2 (05:52→15:43)
[2020-09-20 06:45] LABS: Absolute Lymphocyte Count 1.34 X10^3/uL (0.83-4.51); Absolute Neutrophil Count 4.2 X10^3/uL (2.0-7.7); Basophil# 0.02 X10^3/uL; Basophil% 0.3 % (0-1); Eosinophil# 0.07 X10^3/uL; Eosinophils% 1.1 % (0-5); Hematocrit 38.6 % (37-47); Lymphocyte # 1.34 X10^3/ul (0.83-4.51); Lymphocyte % 21.7 % (19-41); Mean Corp Hgb Conc 31.1 g/dL (32-36); Mean Corpuscular Hgb 28.2 pg (27.0-32.0); Mean Corpuscular Volume 90.6 fL (81-99); Mean Platelet Vol. 10.3 fl (6.2-12.0); Monocyte# 0.51 X10^3/uL; Monocyte% 8.3 % (0-10); NRBC Flagged by Analyzer 0 % (0-5); Neutrophil # 4.22 X10^3/uL (2.7-7.7); Neutrophil % 68.3 % (47-70); Platelet Count 228 K/mm3 (150-450); RBC Distribution Width CV 12.9 % (11.6-14.6); RBC Distribution Width SD 42.5 fl (35.1-43.9); Red Blood Count 4.26 M/mm3 (4.2-5.4); White Blood Count 6.2 K/mm3 (4.4-11.0)
[2020-09-20 07:25] LABS: ALB/GLOB Ratio 0.9 RATIO (0.9-2.4); AST(SGOT) 12 U/L (15-37); Alanine Aminotransfer ALT/SGPT 19 U/L (13-56); Alkaline Phosphatase 89 U/L (45-117); Anion Gap 4 (5-15); BUN 17 mg/dL (7-18); BUN/Creat Ratio 26.2 RATIO (10-20); Calcium,Total 8.6 mg/dL (8.5-10.1); Chloride 106 mmol/L (98-107); Creatinine, Serum 0.65 mg/dL (0.55-1.02); EST Glomerular Filtration Rate 93 mL/min (>60); Est Glom Filt Rate - Afr Amer 112 mL/min (>60); Estimated Creatinine Clearance 36.16 ml/min; Globulin 3.2 g/dL (2.2-4.2); Glucose 114 mg/dL (74-106); Potassium 3.7 mmol/L (3.5-5.1); Protein, Total 6.2 g/dL (6.4-8.2); Sodium Level 141 mmol/L (136-145)
[2020-09-20 08:33] VITALS: BP 159/67; PULSE 64; RESP 16; TEMP 36.8; O2SAT 95
--- NOTE | 2020-09-20 09:09 | PN.SURG_ITS ---
Subjective Subjective Patient is not complaining of any pain nausea or vomiting. She states that she has had no bowel movements and is not passing flatus as of yet. Objective Data Objective Data Abdomen is soft nontender nondistended. Vital Signs: Vital Signs Temp Pulse Resp BP Pulse Ox 98.2 F 64 16 159/67 H 95 09/20/20 08:33 09/20/20 08:33 09/20/20 08:33 09/20/20 08:33 09/20/20 08:33 Oxygen Delivery Method Room Air Weight: 153 lb 3.54 oz Body Mass Index (BMI) 26.3 Intake & Output: Intake and Output for Last 24 Hours 09/18/20 09/19/20 09/20/20 23:59 23:59 23:59 Intake Total 1401.67 / 1401.67 1038.33 / 1038.33 Balance 1401.67 / 1401.67 1038.33 / 1038.33 Lab / Micro Data Result Diagrams: 09/20/20 05:45 09/20/20 05:45 Labs: Laboratory Results - last 24 hr 09/20/20 09/20/20 05:45 05:45 WBC 6.2 RBC 4.26 Hgb 12.0 Hct 38.6 MCV 90.6 MCH 28.2 MCHC 31.1 L RDW Std Deviation 42.5 RDW Coeff of [place] 12.9 Plt Count 228 MPV 10.3 Immature Gran % (Auto) 0.300 Neut % (Auto) 68.3 Lymph % (Auto) 21.7 [place] % (Auto) 8.3 Eos % (Auto) 1.1 Baso % (Auto) 0.3 Absolute Neuts (auto) 4.2 Absolute Lymphs (auto) 1.34 Nucleated RBC % 0 Sodium 141 Potassium 3.7 Chloride 106 Carbon Dioxide 31.0 Anion Gap 4 L BUN 17 Creatinine 0.65 Estim Creat Clear Calc 36.16 Est GFR (MDRD) Af Amer 112 Est GFR (MDRD) Non-Af 93 BUN/Creatinine Ratio 26.2 H Glucose 114 H Calcium 8.6 Total Bilirubin 0.40 AST 12 L ALT 19 Alkaline Phosphatase 89 Total Protein 6.2 L Albumin 3.0 L Globulin 3.2 Albumin/Globulin Ratio 0.9 Assessment & Plan Assessment/Plan (1) Partial obstruction of small intestine: PLAN: Continue conservative measurements. Patient needs to start chewing more gum and ambulating the hallways.
[2020-09-20] MEDS: Heparin Injection (Vial) 5,000 UNIT/ML VIAL 5000 UNIT SC ×2 (10:16→20:09)
[2020-09-20] MEDS: Neomycin/Polymyxin/Dexameth 5ML OPTH.BTL 1 DRP EACH EYE ×2 (11:24→20:02)
--- NOTE | 2020-09-20 12:05 | CASEMGMT ---
RN CM Face to Face with patient for initial transition planning/care coordination assessment. RN CM introduced self and role at [facility]. Patient lying in bed, alert and oriented,. Patient willing to participate in assessment and is able to answer all questions appropriately. Care providers, pharmacy, and demographics verified. Patient wishes to discharge home will monitor for HHC. Patient states he has no further needs or concerns at this time. CM to follow for discharge planning needs that may arise. PCP: Terrence Specialists: [facility] Preferred Pharmacy: [facility] Insurance: [employer] Prescription Benefit: yes Living Will/HPOA: none LNOK: rios Living Arrangements: Patient lives alone in a single story home with 3 steps and railing to enter the home. Patient states she is independent at home. Transportation: daughters DME/HHC: patient states she shower chair, cane, grab bars, walker. Patient states she has previously been to [facility] Disposition Plan: Patient to discharge home with family support and follow-up plans in place. Will monitor for need for HHC at discharge. Ruth JIMENEZ, RN, CM
--- NOTE | 2020-09-20 14:52 | PN.HOSP_ITS ---
Subjective Subjective Patient was seen and examined today, she told nursing that she was passing a small amount of flatus today but she has had no bowel movements. Surgery consultation was reviewed and appreciated. Objective Data Objective Data Vital Signs: Vital Signs Temp Pulse Resp BP Pulse Ox 98.2 F 64 16 159/67 H 95 09/20/20 08:33 09/20/20 08:33 09/20/20 08:33 09/20/20 08:33 09/20/20 08:33 Oxygen Delivery Method Room Air Weight: 69.5 kg Body Mass Index (BMI) 26.3 Intake & Output: Intake and Output for Last 24 Hours 09/18/20 09/19/20 09/20/20 23:59 23:59 23:59 Intake Total 1401.67 / 1401.67 1038.33 / 1038.33 Balance 1401.67 / 1401.67 1038.33 / 1038.33 Lab / Micro Data Result Diagrams: 09/20/20 05:45 09/20/20 05:45 Labs: Laboratory Results - last 24 hr 09/20/20 09/20/20 05:45 05:45 WBC 6.2 RBC 4.26 Hgb 12.0 Hct 38.6 MCV 90.6 MCH 28.2 MCHC 31.1 L RDW Std Deviation 42.5 RDW Coeff of [place] 12.9 Plt Count 228 MPV 10.3 Immature Gran % (Auto) 0.300 Neut % (Auto) 68.3 Lymph % (Auto) 21.7 [place] % (Auto) 8.3 Eos % (Auto) 1.1 Baso % (Auto) 0.3 Absolute Neuts (auto) 4.2 Absolute Lymphs (auto) 1.34 Nucleated RBC % 0 Sodium 141 Potassium 3.7 Chloride 106 Carbon Dioxide 31.0 Anion Gap 4 L BUN 17 Creatinine 0.65 Estim Creat Clear Calc 36.16 Est GFR (MDRD) Af Amer 112 Est GFR (MDRD) Non-Af 93 BUN/Creatinine Ratio 26.2 H Glucose 114 H Calcium 8.6 Total Bilirubin 0.40 AST 12 L ALT 19 Alkaline Phosphatase 89 Total Protein 6.2 L Albumin 3.0 L Globulin 3.2 Albumin/Globulin Ratio 0.9 Physical Exam Const alert, oriented x3 and no apparent distress General Appearance: cooperative, well kempt and well developed Orientation / Consciousness: awake, oriented to person, oriented to place and oriented to time HEENT normocephalic, head/scalp atraumatic and moist oral mucous membranes Head and Scalp: normocephalic Eyes PERRL, EOMs intact bilaterally and conjunctivae normal Neck nuchal rigidity, supple, no JVD, thyroid normal and no carotid bruits General: trachea midline Resp normal respiratory effort, no retractions, no use of accessory muscles and clear to auscultation bilaterally Auscultation: Negative for rales, rhonchi or wheezes Cardio regular rate, regular rhythm, no murmurs, no rub and no gallops GI soft to palpation, non-tender and non-distended Auscultation: hypoactive bowel sounds Extremity no clubbing, cyanosis or edema Skin no rashes or lesions noted General Skin Exam: no breakdown Neuro oriented x3, CN's II-XII intact bilaterally, no focal motor deficits and no sensory deficits noted Sensorium / Orientation: awake and alert Speech: speech normal Psych thought process normal and affect normal Assessment & Plan Assessment/Plan (1) Abdominal pain: (2) Partial obstruction of small intestine: PLAN: 1. Partial small bowel obstruction-etiology unclear, patient continues on sips and chips for now, we will increase her ambulation. #2 type 2 diabetes-patient is currently only on Metformin, I do not feel the patient needs blood sugar monitoring at this time #3 hyperlipidemia #4 hypothyroidism-patient's thyroid medication will be held at this time due to her n.p.o. status #5 macular degeneration #6 hypertension-I have decided at this time to continue holding the patient's blood pressure medication #7 chronic depression-patient's Effexor will be held at this time Charges/Coding Visit Charges Inpatient E&M: 62556 Subs Hosp L2
[2020-09-20 15:17] VITALS: BP 153/63; PULSE 67; RESP 16; TEMP 37; O2SAT 95
[2020-09-20] MEDS: Menthol/Lanolin/Calamine/Znox 113 GM Tube 1 APPLIC TOPICAL ×2 (15:23→20:02)
[2020-09-20] MEDS: Erythromycin Base 1 OPTH.TUBE 1 APPLIC RIGHT EYE (20:03)
[2020-09-20 20:13] VITALS: BP 155/54; PULSE 68; RESP 16; TEMP 36.8; O2SAT 96
[2020-09-21] VITALS (7 sets, daily range): BP systolic 134–180; BP diastolic 53–74; PULSE 62–90; RESP 16–18; TEMP 36.6–36.7; O2SAT 94–100
[2020-09-21] MEDS: 0.9% Normal Saline 1,000 ML 100 ML IV ×3 (01:25→21:03)
[2020-09-21] MEDS: Acetaminophen 325 MG Tablet 650 MG PO ×2 (01:41→20:22)
[2020-09-21] MEDS: Menthol/Lanolin/Calamine/Znox 113 GM Tube 1 APPLIC TOPICAL ×2 (09:52→20:29)
[2020-09-21] MEDS: Neomycin/Polymyxin/Dexameth 5ML OPTH.BTL 1 DRP EACH EYE ×3 (09:54→18:39)
[2020-09-21] MEDS: Heparin Injection (Vial) 5,000 UNIT/ML VIAL 5000 UNIT SC ×2 (09:59→20:32)
--- NOTE | 2020-09-21 12:14 | PCM.PN.SRG ---
Subjective Subjective Patient still has not had any bowel movements. Really unclear whether or not she is passing any flatus. Objective Data Objective Data Abdomen is soft few bowel sounds are identified no tenderness. Vital Signs: Vital Signs Temp Pulse Resp BP Pulse Ox 98.0 F 74 18 142/60 H 94 09/21/20 08:00 09/21/20 08:26 09/21/20 08:00 09/21/20 08:00 09/21/20 08:00 Oxygen Delivery Method Room Air Weight: 153 lb 3.54 oz Body Mass Index (BMI) 26.3 Intake & Output: Intake and Output for Last 24 Hours 09/19/20 09/20/20 09/21/20 23:59 23:59 23:59 Intake Total 1401.67 / 1401.67 2022. / 2022. 1870 / 1870 Output Total 1300 / 1300 Balance 1401.67 / 1401.67 / 570 / 570 Lab / Micro Data Result Diagrams: 09/20/20 05:45 09/20/20 05:45 Assessment & Plan Assessment/Plan (1) Partial obstruction of small intestine: PLAN: We will try to use some lactulose from above and suppository from below to see if we can stimulate things to go. No surgical interventions planned at this time.
[2020-09-21] MEDS: Lactulose 20 GM/30 ML UDC 10 GM PO (13:24)
[2020-09-21] MEDS: Bisacodyl 10 MG Suppository RC (13:24)
--- NOTE | 2020-09-21 14:01 | NURSING ---
attempt to reach either daughter unsuccessful at this time per their cell phones listed
--- NOTE | 2020-09-21 14:54 | CASEMGMT ---
Pt screened with [facility] Palliative Care Screening Tool due to strata 3, pt did not meet criteria.
--- NOTE | 2020-09-21 16:28 | PCM.PN.HOSP ---
Subjective Subjective Patient was seen and examined today, she is still not had a bowel movement and she is only passing very small amounts of gas. Patient was given p.o. lactulose and a Dulcolax suppository today, patient appears fatigued today, PT and OT are seeing the patient for evaluation. Objective Data Objective Data Vital Signs: Vital Signs Temp Pulse Resp BP Pulse Ox 98.0 F 90 18 134/59 H 95 09/21/20 14:42 09/21/20 14:44 09/21/20 14:42 09/21/20 14:42 09/21/20 14:44 Oxygen Delivery Method Room Air Weight: 69.5 kg Body Mass Index (BMI) 26.3 Intake & Output: Intake and Output for Last 24 Hours 09/19/20 09/20/20 09/21/20 23:59 23:59 23:59 Intake Total 1401.67 / 1401.67 2022. / 1930 / 1930 Output Total 1300 / 1300 Balance 1401.67 / 1401.67 / 630 / 630 Lab / Micro Data Result Diagrams: 09/20/20 05:45 09/20/20 05:45 Physical Exam Const alert, oriented x3 and no apparent distress General Appearance: cooperative, well kempt and well developed Orientation / Consciousness: awake, oriented to person, oriented to place and oriented to time HEENT normocephalic and moist oral mucous membranes Eyes PERRL, EOMs intact bilaterally and conjunctivae normal Neck nuchal rigidity, supple, no JVD, thyroid normal and no carotid bruits General: trachea midline Resp normal respiratory effort and clear to auscultation bilaterally Auscultation: Negative for rales, rhonchi or wheezes Cardio regular rate, regular rhythm, no murmurs, no rub and no gallops GI normal to inspection, nondistended, normoactive bowel sounds, soft to palpation, non-tender and non-distended Extremity no clubbing, cyanosis or edema Skin no rashes or lesions noted General Skin Exam: no breakdown Neuro oriented x3, CN's II-XII intact bilaterally, no focal motor deficits and no sensory deficits noted Sensorium / Orientation: awake and alert Speech: speech normal Psych thought process normal and affect normal Assessment & Plan Assessment/Plan (1) Partial obstruction of small intestine: PLAN: 1. Partial small bowel obstruction-etiology unclear, Dulcolax suppository and lactulose was given today, patient will be seen by PT and OT, ambulation will be increased if possible #2 type 2 diabetes-patient is currently only on Metformin, I do not feel the patient needs blood sugar monitoring at this time #3 hyperlipidemia #4 hypothyroidism-patient's thyroid medication will be held at this time due to her n.p.o. status #5 macular degeneration #6 hypertension-I have decided at this time to continue holding the patient's blood pressure medication, patient's blood pressure appears stable at this time #7 chronic depression-patient's Effexor will be held at this time Charges/Coding Visit Charges Inpatient E&M: 10692 Subs Hosp L2
[2020-09-21] MEDS: Venlafaxine HCl 75 MG Tablet PO (20:22)
[2020-09-21] MEDS: Erythromycin Base 1 OPTH.TUBE 1 APPLIC RIGHT EYE (20:29)
[2020-09-21] MEDS: Ondansetron 4 MG/2 ML Vial IV (22:11)
[2020-09-21] MEDS: LORazepam 0.5 MG Tablet PO (22:11)
[2020-09-21] MEDS: hydroCHLOROthiazide 25 MG Tablet PO (22:11)
[2020-09-22] VITALS (9 sets, daily range): BP systolic 128–199; BP diastolic 56–79; PULSE 63–83; RESP 16–18; TEMP 36.3–36.9; O2SAT 92–100
[2020-09-22] MEDS: Acetaminophen 325 MG Tablet 650 MG PO (01:26)
[2020-09-22] MEDS: hydrALAZINE 20 MG/ML Vial 10 MG IV ×2 (02:01→21:32)
[2020-09-22] MEDS: Levothyroxine 100 MCG Tablet PO (05:18)
--- NOTE | 2020-09-22 05:55 | RAD_ITS ---
STUDY: X-RAY - ABDOMEN/PELVIS REASON FOR EXAM: Female, 85 years old. SBO TECHNIQUE: Single AP view of the abdomen / pelvis. COMPARISON: None. FINDINGS: There is elevation of the right hemidiaphragm. A battery pack is seen overlying the right upper quadrant. There are dilated loops of the small intestine with a non-distended colon consistent with a small bowel obstruction. Fecal material is seen in the right hemicolon. The visualized liver, spleen and kidneys are grossly normal in size and morphology. Normal soft tissue structures. There are diffuse degenerative changes of the visualized lumbar spine. Dextroscoliosis. RAD/Abdomen Single View (Portable) IMPRESSION: Dilated small bowel loops suggestive of a small bowel obstruction. Electronically Signed: Kyle Oates MD at 9:03 EDT , Service support ,
[2020-09-22] MEDS: 0.9% Normal Saline 1,000 ML 100 ML IV ×2 (06:52→17:11)
[2020-09-22] MEDS: Menthol/Lanolin/Calamine/Znox 113 GM Tube 1 APPLIC TOPICAL ×2 (07:42→21:27)
[2020-09-22] MEDS: Venlafaxine HCl 75 MG Tablet PO ×2 (07:43→21:27)
[2020-09-22] MEDS: Neomycin/Polymyxin/Dexameth 5ML OPTH.BTL 1 DRP EACH EYE ×2 (07:44→17:11)
[2020-09-22] MEDS: Heparin Injection (Vial) 5,000 UNIT/ML VIAL 5000 UNIT SC (07:45)
[2020-09-22] MEDS: hydroCHLOROthiazide 25 MG Tablet PO (07:52)
[2020-09-22] MEDS: proCHLORPERazine 10 MG/2 ML Vial IV ×2 (10:14→23:07)
--- NOTE | 2020-09-22 11:01 | PCM.PN.SRG ---
Subjective Subjective Patient has been having some nausea this morning. No vomiting. Has not been tolerating her food. KUB has been ordered. She did have a bowel movement yesterday. Objective Data Objective Data Abdomen is soft nontender no change in her physical exam for all the days that she has been here. Vital Signs: Vital Signs Temp Pulse Resp BP Pulse Ox 98.0 F 64 18 161/60 H 98 09/22/20 07:34 09/22/20 07:34 09/22/20 07:34 09/22/20 07:34 09/22/20 07:34 Oxygen Delivery Method Room Air Weight: 153 lb 3.54 oz Body Mass Index (BMI) 26.3 Intake & Output: Intake and Output for Last 24 Hours 09/20/20 09/21/20 09/22/20 23:59 23:59 23:59 Intake Total 2022. / 2930 / 3170 1461.67 / 1461.67 Output Total 1300 / 2000 1800 / 1800 Balance 2022. / 2022. 1630 / 1170 -338.33 / -338.33 Lab / Micro Data Result Diagrams: 09/20/20 05:45 09/20/20 05:45 Radiography Diagnostic Testing: Radiology Impression KUB X-Ray 09/22/20 05:55 IMPRESSION: Dilated small bowel loops suggestive of a small bowel obstruction. Electronically Signed: Kyle Oates MD at 9:03 EDT , Service support , Assessment & Plan Assessment/Plan (1) Partial obstruction of small intestine: PLAN: Normal white count no peritoneal signs not sure if adding an NG tube might be of benefit here but I will discuss this with Dr. Dillon who will be taking over the care of this patient.
--- NOTE | 2020-09-22 12:25 | CASEMGMT ---
Addendum entered by Kylie Ramos 09/22/20 12:55: Spoke with Dr. Armando who states pt to dc today. Made aware that pt is unwilling to discuss dc planning at this time. He requests CM to contact dtr as pt has a history of dementia. TC to pt dtr Leelee. She states pt is able to make her own decisions. She states pt gets lonely at home and she may be planning on having pt move in with her. States pt has been in the [facility] previously and has done well. She states pt is set up well at home. She is aware that pt is unwilling to discuss currently. RN CYNTHIA to attempt again. Original Note: RN CM in to pt room. Pt lying in bed in no distress. Attempted to discuss C therapy with patient. Pt states its to early to discuss this. Asked pt how she felt working with therapy. She states she is weak because she hasn't eaten in a few days. Discussed the benefits of home therapy for her. Pt states I may need to go to the rest home. Pt unwilling to discuss dc planning at this time. CM to follow. Patient was provided a list of C providers including quality and resource use data and consistent with the patient?s preferred geographic region, medical needs, and insurance network. Asked pt if she would like CM to read this to her as she is blind. Pt declined.
--- NOTE | 2020-09-22 13:05 | CT_ITS ---
EXAM: CT ABDOMEN AND PELVIS WITHOUT INTRAVENOUS CONTRAST CLINICAL INDICATION: abdominal pain, small bowel obstruction TECHNIQUE: Helically acquired images were obtained of the abdomen and pelvis without intravenous contrast. This CT exam was performed using one or more of the following dose reduction techniques: automated exposure control, adjustment of the mA and/or kV according to patient size, and/or use of iterative reconstruction technique. opvizor report generation technology utilized. COMPARISON: 09/19/2020 FINDINGS: LOWER THORAX: Unremarkable. Lung bases are clear. No cardiomegaly. No significant pericardial effusion. ABDOMEN: LIVER: There is fluid over the surface of the liver. GALLBLADDER AND BILE DUCTS: Unremarkable. No calcified gallstones. No gallbladder distention or wall edema. No intra- or extrahepatic biliary ductal dilation. PANCREAS: Unremarkable. No focal cystic mass. SPLEEN: Unremarkable. Normal size without focal cystic or solid mass. ADRENALS: Unremarkable. No nodules. KIDNEYS AND URETERS: Stable nonobstructing stone in the lower pole of the right kidney. No hydronephrosis. STOMACH AND BOWEL: Distended stomach. Most of the small bowel is distended beyond normal limits and fluid-filled and normal caliber small bowel loops are seen in the right lower quadrant. Findings are consistent with a distal small bowel structure. Specific site and etiology of obstruction is not clearly seen. Normal caliber large bowel with marked fecal retention. Probable fecal impaction in the rectosigmoid. No focal inflammatory change. PELVIS: APPENDIX: No evidence of acute appendicitis. BLADDER: Unremarkable. REPRODUCTIVE: Unremarkable as visualized. No mass. ABDOMEN and PELVIS: INTRAPERITONEAL SPACE: Unremarkable. No ascites or other fluid collection. No free air. BONES/JOINTS: Degenerative changes throughout the skeletal structures. No suspicious lytic or blastic abnormality. SOFT TISSUES: Increased density throughout the abdominal, pelvic, and mesenteric fat consistent with edema. No discrete abdominal or pelvic wall hernia. VASCULATURE: Calcified plaque in the aorta without aneurysm. LYMPH NODES: Unremarkable. No enlarged lymph nodes. CT/Abdomen/Pel W ORAL Cont Only IMPRESSION: 1. Findings consistent with distal small bowel obstruction. 2. Fecal retention and probable fecal impaction in the rectosigmoid. Electronically Signed: Gt Drake MD at 19:31 EDT , Service support ,
--- NOTE | 2020-09-22 14:47 | CASEMGMT ---
Social Work Note SW received note that pt's daughter Josey would like to be called. SW placed a call to pt's daughter Josey. Josey states she and her sister discussed and if pt could get into a SNF ([facility]) that would be preference if pt is not able to return home. Josey states she was told pt was weak and tired and pt does live alone. Josey states she wouldn't be able to stay with pt and neither could her sister. IRINA informed Josey that pt would need to be agreeable to SNF and there would have to be a skillable need for SNF. SW informed Josey that pt did well with PT (100ft min assist of 1). SW informed Josey that pt hasn't been agreeable to any discharge plans at this time ([facility] or SNF). Josey asked for a medical update. IRINA informed Josey that this worker cannot provide medical update as that it outside this worker's scope of practice but this worker can have RN give her a call. Josey states undertanding, would like RN to call her with an update. RN update. Ruth Martinez DAY SPA MANAGER, MANAGER INSTALLATION
--- NOTE | 2020-09-22 15:32 | CASEMGMT ---
Social Work Note SW in to speak with pt. SW introduced self and role at [facility]. SW spoke with pt about SNF and how pt's daughter Josey requested SNF for pt. Patient was provided a list of SNF providers including quality and resource use data and consistent with the patient?s preferred geographic region, medical needs, and insurance network. Pt state she has been to [facility] before. Pt states her at [facility]. SW asked pt about [facility] as it was reported that pt has been there before. Pt states she has not been to [facility] and that it the last place she would go. SW verbally provided pt a list if SNF as pt is blind. Pt agreeable to [facility]. IRINA placed a call to Chanda at [facility] and left message regarding referral. IRINA faxed referral to [facility]. IRINA updated physician. Plan: [facility] pending acceptance Ruth Martinez SEWING MACHINE OPERATOR, ARMATURE STRAIGHTENER
--- NOTE | 2020-09-22 16:37 | PN.HOSP_ITS ---
Subjective Subjective Patient was seen and examined today, I discussed her care with general surgery, she still complains of some vague abdominal discomfort although she request to be given food. I ordered a CT of the abdomen with oral contrast today, it does not show evidence of an acute obstruction according to general surgery. Patient has stated this afternoon that she would like to go to a senior care, we are going to be awaiting approval for this. Objective Data Objective Data Vital Signs: Vital Signs Temp Pulse Resp BP Pulse Ox 97.3 F L 70 18 128/70 H 96 09/22/20 13:30 09/22/20 13:30 09/22/20 13:30 09/22/20 13:30 09/22/20 13:30 Oxygen Delivery Method Room Air Weight: 69.5 kg Body Mass Index (BMI) 26.3 Intake & Output: Intake and Output for Last 24 Hours 09/20/20 09/21/20 09/22/20 23:59 23:59 23:59 Intake Total 2022.33 / 2022. 2930 / 3170 2315.00 / 2315.00 Output Total 1300 / 2000 2700 / 2700 Balance 2022. / 2022. 1630 / 1170 -385.00 / -385.00 Lab / Micro Data Result Diagrams: 09/20/20 05:45 09/20/20 05:45 Radiography Diagnostic Testing: Radiology Impression KUB X-Ray 09/22/20 05:55 IMPRESSION: Dilated small bowel loops suggestive of a small bowel obstruction. Electronically Signed: Kyle Oates MD at 9:03 EDT , Service support , Physical Exam Const alert, no apparent distress, average body habitus and healthy appearing General Appearance: cooperative, well kempt and well developed Orientation / Consciousness: awake, oriented to person, oriented to place and oriented to time HEENT normocephalic, head/scalp atraumatic and moist oral mucous membranes Head and Scalp: normocephalic Eyes PERRL, EOMs intact bilaterally and conjunctivae normal Neck nuchal rigidity, supple, no JVD, thyroid normal and no carotid bruits General: trachea midline Resp normal respiratory effort, no retractions, no use of accessory muscles and clear to auscultation bilaterally Auscultation: Negative for rales, rhonchi or wheezes Cardio regular rate, regular rhythm, S1 normal heart sound, S2 normal heart sound, no murmurs, no rub and no gallops GI normal to inspection, nondistended, normoactive bowel sounds, soft to palpation, non-tender and non-distended Extremity normal to inspection and no clubbing, cyanosis or edema Skin no rashes or lesions noted, skin turgor normal and no jaundice General Skin Exam: no breakdown Neuro CN's II-XII intact bilaterally, no focal motor deficits and no sensory deficits noted Sensorium / Orientation: awake and alert Speech: speech normal Psych thought process normal and affect normal Assessment & Plan Assessment/Plan (1) Partial obstruction of small intestine: PLAN: 1. Partial small bowel obstruction-etiology unclear, will continue present diet at this time #2 type 2 diabetes-patient is currently only on Metformin, this is being held at this point #3 hyperlipidemia #4 hypothyroidism-patient's thyroid medication was resumed yesterday #5 macular degeneration #6 hypertension-I have decided at this time to continue holding the patient's blood pressure medication, patient's blood pressure appears stable at this time #7 chronic depression-patient's Effexor was restarted #8 dementia-this appears mild at this point Charges/Coding Visit Charges Inpatient E&M: 38248 Subs Hosp L2
--- NOTE | 2020-09-22 20:11 | NURSING ---
Dr Dillon called to advise she had spoken with Dr Enriquez, anesthesiologist, in regards to surgery for the patient. Plan is to have patient down in AC by 5.30am tomorrow morning. Dr Dillon advised that she had already spoken to the nursing supervisor curing room and patient's daughter, Josey, about the surgery. Reports that Josey has Power of Computer Hardware Designer. Spoke with patient about what the Dr had advised. Dr Dillon had advised that she had spoken to the patient earlier today about the possibility of surgery and what that would entail, which the patient did confirm. Patient also confirmed that Josey, her daughter did hold POA. This nurse asked the patient if she had any questions about the surgery and if she was able to sign a consent form with her current eye sight having macular degeneration. Patient would like her daughter, Josey, to sign the consent form. This nurse called Josey and asked if she had a copy of the POA papers to place on file here at the hospital. She advised she would bring in the papers and come into the hospital at 4.30am to sign the consent form. No further questions or concerns voiced by patient or daughter.
--- NOTE | 2020-09-22 20:31 | PCM.PN.BLA ---
Progress Note Patient seen by me this afternoon I will be taking over surgical care of this patient as Dr. Smith will be out of town. In summary, this is an 85 y/o WF who is was admitted to the hospital on 09/19/20 for abdominal pain. Non contrast CT scan showed small bowel obstruction. Patient was observed and treated conservatively with IV hydration - she refused NG tube decompression. She seemed to clinically improve with a bowel movement and passage of flatus yesterday. However, patient complained of increased abdominal pain today. KUB revealed dilated small bowel this morning. I evaluated patient this afternoon and she had right sided abdominal tenderness, but no peritoneal signs. A repeat CT scan was obtained, this time with oral contrast. Results were not obtained until this evening and findings of SBO. Discussion with anesthesiologist and proposal was made to proceed with surgery very early tomorrow morning since patient ate dinner. I have discussed this with patient's daughter, Ms. España, who is her POA. Will proceed to exploratory laparotomy, lysis of adhesions, possible small bowel resection, tomorrow at 5:30-6:00am.
[2020-09-22] MEDS: Erythromycin Base 1 OPTH.TUBE 1 APPLIC RIGHT EYE (21:28)
[2020-09-22] MEDS: 0.9% Saline Lock 10 ML Syringe IV (23:07)
[2020-09-23] VITALS (10 sets, daily range): BP systolic 117–164; BP diastolic 37–68; PULSE 56–83; RESP 16–18; TEMP 36.1–37.2; O2SAT 92–98; BMI 25.9
--- NOTE | 2020-09-23 | IMM_PTH ---
PATIENT: ANGE LAZARO LOC: MS3 U#:[id number] AGE/SX: 85/F ROOM: [facility] RE09/19/[address]: Dr. Julia Middleton MD : [id number] BED: 1 DIS: 09/28/2020 SPEC #: [id number] RECD: 09/28/20 11:43 STATUS: MICHELLE REQ #: [id number] ADELITA: 09/23/20 00:[address]: Alfreda Dillon DEPT: IMMUNOHISTOCHEMISTRY RECD BY: Mary Ponce ENTERED: 09/28/20 11:46 SP TYPE: IMMUNO OTHR DR: MD Dr. Elliott Colorado DO Dr. Nana Yaa Koram, MD Dr. William Lago, MD Tissues: Small intestine biopsy Procedures: CD138 (add) CD20 (add) CD43 (add) CD45 (add) CD5 (add) CD79A (add) KI-67 (add) CD3 (initial) PHYSICIAN [address] [address] SPECIMEN INFORMATION: Tissue Source: Small bowel Clinical Info: Partial obstruction of small intestine Specimen Number: [id number] #6 CPT code: 71902, 25144 x7 METHODOLOGY: Deparaffinized sections of prefer/formalin-fixed tissue or PAP/DQ stained slides are incubated with monoclonal/polyclonal antibodies/oligonucleotide probes. Localization is made via biotin free immunoperoxidase method. Appropriate controls are performed and reacted as expected. Results on target cell population are indicated in the following table: RESULTS: ANTIBODY / CLONE RESULT Block 6 CD3 (PS1) positive CD5 (SP10) positive CD20 (L26) positive CD43 (L60) positive CD45 (RP2/18) positive CD79a (11E3) positive CD138 (B-A38) negative Ki-67 (30-9) positive, low These tests were developed and their performance characteristics determined by [facility]. They may not have been cleared or approved by the U.S. Food and Drug Administration. The FDA has determined that such clearance or approval is not necessary. The above immunohistochemical/dualISH markers are ordered and reviewed by the Pathologist. INTERPRETATION: Small bowel, segmental resection: Polytypic (benign) lymphoid hyperplasia. AM:gabriel 09/29/2020
[2020-09-23] MEDS: 0.9% Normal Saline 1,000 ML 100 ML IV (03:13)
--- NOTE | 2020-09-23 04:00 | EKG12_ITS ---
Test Reason : AM EKG Blood Pressure : / mmHG Vent. Rate : 077 BPM Atrial Rate : 077 BPM P-R Int : 256 ms QRS Dur : 144 ms QT Int : 466 ms P-R-T Axes : 079 -34 125 degrees QTc Int : 527 ms Sinus rhythm with 1st degree A-V block with occasional PVC Left axis deviation Left bundle branch block Abnormal ECG Confirmed by DOREEN JUNG, CHRISTIN ([id number]), fashion editor HERNANDEZ SMITH ([id number]) on 09/28/2020 2:12:16 PM Referred By: KIARA Confirmed By:CHRISTIN LOGAN MD
[2020-09-23 04:26] LABS: Bedside Glucose 157 mg/dL (70-110)
--- NOTE | 2020-09-23 05:15 | NURSING ---
Report given to AC, pt taken down to surgery with daughters and DIESEL ENGINE FITTER at 0510hrs.
[2020-09-23 05:19] LABS: Thyroid Stim Hormone (TSH) 7.93 uIU/mL (0.358-3.74)
[2020-09-23] MEDS: Lactated Ringers 1,000 ML 100 ML IV ×4 (05:30→21:58)
[2020-09-23 05:33] LABS: Partial Thromboplast Time 28.2 Seconds (24.1-36.2)
--- NOTE | 2020-09-23 07:31 | OP.PCM_ITS ---
Report of Operation Date of Procedure: 09/23/20 Pre-Operative Diagnosis: small bowel obstruction Post-Operative Diagnosis: small bowel obstruction due to adhesions Surgery/Procedure Performed:: small bowel resection, lysis of adhesions Description of Surgical Findings:: small bowel stricture with dense adhesions Surgeon: Alfreda Dillon handcrew foreman: Jessy French Type of Anesthesia: General Anesthesiologist: Jl Recinos Specimen's removed: small bowel segment Drains: 15 Fr drain in pelvis Estimated Blood Loss (mL): 20 ml Fluids Replaced: 1200 ml RL Description of Procedure: After informed consent was obtained, the patient was brought to the Operating Room. Appropriate time out protocol was followed. The patient was then placed under general anesthesia. The abdomen was then prepped with a sterile surgical skin preparation. Sterile surgical drapes were placed. This skin and subcutaneous tissues were then widely infiltrated with the local anesthetic. Local anesthetic of 0.25% marcaine with epinephrine, was infiltrated in the tissues for postoperative pain control and hemostasis. A skin incision was then made with a 10 blade scalpel at the previous incisional site scar (lower midline) and extended slightly periumbilical and carried down to the subcutaneous tissues using sharp dissection. Any hemorrhage was adequately controlled with electrocautery. The fascia was identified. It was carefully incised and the intraabdominal cavity was entered. There was peritoneal fluid noted, but it was not purulent. There were dense adhesions of the small bowel to the omentum and right lower quadrant and pelvic sidewall. This created a matted conglomerate of tissue in the mid abdomen. This had to be layer by layer to identify the point of obstruction. These adhesions were taken down by sharp dissection. Any hemorrhage was controlled with electrocautery. This took some time, due the adhesive nature of this scar tissue. Deep to this conglomerate of tissue, there was an area of small bowel that was noticeably strictured and scarred down by an internal loop and this is the point of obstruction. 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 A linear 55 HARRIETT stapling device was fired proximal and distal to the points of stricture. The mesentary of this segment of small bowel was then transected and ligated with vicryl suture. The segment of small bowel, 10 cm, was thus removed and forward to pathology for analysis. The antimesenteric corners of the stapled ends of the small bowel were then brought together and the corners sharply transected. Each limb of the linear GI 55 stapling device was then placed in the proximal and distal transected ends of the small bowel and then fired. Closure of the resulting opening was then done with a TIA 60 stapling device. Thus, this was a side to side, functional end to end, stapled anastomosis. No active bleeding was noted at the anastomosis. The anastomosis was palpated and widely patent. A heel stitch was placed using 3-0 vicryl. The resulting mesentery opening was closed with running 3-0 vicryl suture. The small bowel was examined from the ligament of Treitz to the ileocecal valve and no other points of obstruction or injury was noted The small bowel was then placed back in its proper anatomical position. The abdomen was vigorously irrigated with warmed normal saline, and all irrigant was aspirated out. A 15 Fr passive round drain was placed in the pelvis and brought out via a separate skin incision. The fascia was then reapproximated along the midline vertically with a continuous looped #1 PDS suture. Rtell's fascia was reapproximated with vicryl suture. The skin was reapproximated with 4-0 monocryl in a running subcutaneous fashion. Steristrips and Cavilon was applied for reinforcement of the skin closure. Telfa and 4x4s were placed for a sterile dressing. The patient was then extubated by the anesthesia provider. The patient was brought from to the Recovery Room in stable condition. Complications none noted Admit VTE Documentation VTE Present on Admission: Yes VTE Mechan Device Prophylaxis: SCD's
[2020-09-23] MEDS: Bupivacaine Mpf 0.5% 30 ML VIAL (07:38)
--- NOTE | 2020-09-23 08:00 | COL_PTH ---
PATIENT: ANGE LAZARO LOC: MS3 U#:[id number] AGE/SX: 85/F ROOM: [facility] [place] RE09/19/[address]: Dr. Julia Middleton MD : [id number] BED: 1 DIS: 09/28/2020 SPEC #: [id number] RECD: 09/23/20 12:55 STATUS: MICHELLE REMeme #: [id number] ADELITA: 09/23/20 08:[address]: Alfreda Dillon DEPT: SURGICAL PATHOLOGY RECD BY: Anjelica So ENTERED: 09/23/20 13:24 SP TYPE: COLON OTHR DR: MD Dr. Elliott [place] DO Dr. William Lago, MD Tissues: Small intestine mucous membrane Procedures: Surgery Specimen Level V Comments: @ Ordering doctor for SUIV edited from to @ by JARON at 09/23/20 1740 @ Submitting doctor edited from to DR.LWANG Vazquez by CRISTOFEROD at 09/23/20 135 HEADER OPERATION: Small bowel resection with lysis of adhesions PRE-OP DIAGNOSIS: Partial obstruction of small intestine TISSUE SUBMITTED: Small bowel MICROSCOPIC DIAGNOSIS Small bowel, segmental resection: Serosal fibrosis, vascular ectasia and focal acute inflammation consistent with foci of adhesion. Focal benign lymphoid hyperplasia. No evidence of malignancy. See comment. AM:gabriel 09/28/2020 COMMENT Immunohistochemistry ([id number]) supports the above diagnosis. MICROSCOPIC DESCRIPTION Slides are reviewed. GROSS DESCRIPTION Received in fixative is one container labeled with the patient's name and designated small bowel. The specimen consists of a dilated segment of small bowel measuring 9.5 cm in length and up to 4 cm in diameter. Both resections margins are stapled. No mucosal lesion is identified. The lumen contains a small amount of fecal material. Also present in the container is a donut-shaped piece of bowel tissue measuring 3 x 0.6 x 0.3 cm. Sections will be submitted after fixation. / SJ:gabriel 09/23/20 The specimen consists of an unoriented segment of bowel measuring 13 cm in length and stapled on both ends. A minimal amount of fibrofatty tissue is attached to the external surface. The mucosa is light pham in color and thrown into normal folds. No mucosal mass lesions are identified. A separate fragment of bowel mucosa is present in the container measuring 6 x 0.5 x 0.2 cm. This fragment is submitted in its entirety in cassette 6. Disassembler sections are submitted in six cassettes as follows: 1 - mucosal margins (one inked black), 2-5 - packaging sales representative sections of bowel. / AM:gabriel 09/27/20 TC:2 CPT: 41787
[2020-09-23 08:38] LABS: Hemoglobin A1c 6.4 % (3.8-5.6)
[2020-09-23] MEDS: Menthol/Lanolin/Calamine/Znox 113 GM Tube 1 APPLIC TOPICAL ×2 (09:33→21:51)
[2020-09-23] MEDS: Neomycin/Polymyxin/Dexameth 5ML OPTH.BTL 1 DRP EACH EYE ×2 (09:33→17:51)
[2020-09-23] MEDS: Famotidine 200 MG/20 ML MDV 20 MG in 0.9% Normal Saline (Pres. free 8 ML 300 MG IV (09:36)
--- NOTE | 2020-09-23 10:43 | CASEMGMT ---
Addendum entered by Ruth Martinez 09/23/20 11:21: IRINA received call from Chanda at [facility] stating [facility] is able to accept pt when pt is medically ready. Chanda confirms if pt doesn't discharge tomorrow (09/24) pt will need new COVID test. IRINA completed convalescent 7000 in [employer]. IRINA placed Green sheet, transport forms, COVID tool, and HENS on pt's chart. Plan: [facility] once medically cleared. *If pt doesn't discharge to [facility] Sunday 09/24 pt will need new COVID test on day of discharge. Ruth Martinez MSW, BOXER OPERATOR Original Note: Social Work Note IRINA placed a call to pt's daughter Josey and updated her that [facility] has accepted pt and pt is able to be discharged to [facility] once medically cleared. Josey states understanding, agreeable to plan. IRINA placed a call to Christina at [facility] and left message updating her that pt is not medically ready for discharge today, may be ready over the weekend. Plan: [facility] once medically cleared Ruth POTTER, BOXER OPERATOR
[2020-09-23] MEDS: Morphine 2 MG/ML Syringe IV ×3 (11:33→17:54)
--- NOTE | 2020-09-23 18:07 | PCM.PN.HOSP ---
Subjective Subjective Patient was seen and examined today, she underwent a laparotomy with lysis of adhesions today, she appears stable postop at this time, she has an NG in place. Objective Data Objective Data Vital Signs: Vital Signs Temp Pulse Resp BP Pulse Ox 97.9 F 83 16 133/52 H 94 09/23/20 17:14 09/23/20 17:14 09/23/20 17:14 09/23/20 17:14 09/23/20 17:14 Oxygen Flow Rate (L/min) 2 Oxygen Delivery Method Room Air Weight: 68.8 kg Body Mass Index (BMI) 25.9 Intake & Output: Intake and Output for Last 24 Hours 09/21/20 09/22/20 09/23/20 23:59 23:59 23:59 Intake Total 2930 / 3170 2710.00 / 2710.00 3487.67 / 3487.67 Output Total 1300 / 2000 3250 / 3250 760 / 760 Balance 1630 / 1170 -540.00 / -540.00 2727.67 / 2727.67 Lab / Micro Data Result Diagrams: 09/20/20 05:45 09/20/20 05:45 Labs: Laboratory Results - last 24 hr 09/23/20 09/23/20 09/23/20 04:19 04:40 04:40 APTT 28.2 Hemoglobin A1c TSH 7.93 H POC Glucose 157 H 09/23/20 04:40 APTT Hemoglobin A1c 6.4 H TSH POC Glucose Micro: Microbiology 09/22/20 23:08 Mucosa - Nose SARS-CoV-2 Antigen (Rapid) - Final Radiography Diagnostic Testing: Radiology Impression Abdomen CT 09/22/20 13:05 IMPRESSION: 1. Findings consistent with distal small bowel obstruction. 2. Fecal retention and probable fecal impaction in the rectosigmoid. Electronically Signed: Gt Drake MD at 19:31 EDT , Service support , Physical Exam Const alert, no apparent distress, average body habitus and well nourished General Appearance: cooperative, well kempt and well developed Orientation / Consciousness: awake, oriented to person, oriented to place and oriented to time HEENT normocephalic, head/scalp atraumatic, hearing grossly normal bilaterally and moist oral mucous membranes HEENT Narrative: NG tube is in place Eyes PERRL, EOMs intact bilaterally and conjunctivae normal Neck nuchal rigidity, supple, no JVD, thyroid normal and no carotid bruits General: trachea midline Resp normal respiratory effort, no retractions, no use of accessory muscles and clear to auscultation bilaterally Auscultation: Negative for rales, rhonchi or wheezes Cardio regular rate, regular rhythm, S1 normal heart sound, S2 normal heart sound, no murmurs, no rub and no gallops GI GI Narrative: No bowel sounds were noted on examination Extremity normal to inspection and no clubbing, cyanosis or edema Skin no rashes or lesions noted, no wounds, skin turgor normal, no jaundice and no petechiae General Skin Exam: no breakdown Neuro CN's II-XII intact bilaterally, no focal motor deficits and no sensory deficits noted Sensorium / Orientation: awake and alert Speech: speech normal Psych thought process normal and affect normal Assessment & Plan Assessment/Plan (1) Partial obstruction of small intestine: PLAN: 1. Partial small bowel obstruction-status post lysis of adhesions had exploratory laparotomy, surgery is participating in her care, patient now has an NG tube. #2 type 2 diabetes #3 hyperlipidemia #4 hypothyroidism #5 macular degeneration #6 hypertension-I have decided at this time to continue holding the patient's blood pressure medication, patient's blood pressure appears stable at this time #7 chronic depression #8 dementia-this appears mild at this point Charges/Coding Visit Charges Inpatient E&M: 19392 Subs Hosp L2
--- NOTE | 2020-09-23 18:39 | PCM.PN.BLA ---
Progress Note Postop check Patient lying very still in bed, nurses report that patient hasn't moved since surgery Dressing intact, abdomen is soft BETSEY output is serosanguinous Will order PT/OT, incentive spirometry Patient is unwilling to move, complaint of pain and NG in place, but when given IV morphine - acts heavily sedated Patient will be difficult to rehabilitate based upon above I have encouraged ambulation, deep breathing exercises - patient does not want to do this
[2020-09-23] MEDS: Erythromycin Base 1 OPTH.TUBE 1 APPLIC RIGHT EYE (21:51)
[2020-09-23] MEDS: Famotidine 200 MG/20 ML MDV 20 MG in 0.9% Normal Saline (Pres. free 8 ML 333 MG IV (21:58)
[2020-09-23] MEDS: Heparin Injection (Vial) 5,000 UNIT/ML VIAL 5000 UNIT SC (21:59)
[2020-09-23] MEDS: 0.9% Saline Lock 10 ML Syringe IV (21:59)
[2020-09-24 04:00] VITALS: BP 148/98; PULSE 82; RESP 16; TEMP 36.4; O2SAT 95
[2020-09-24] MEDS: Levothyroxine 100 MCG Tablet PO (06:36)
[2020-09-24] MEDS: 0.9% Normal Saline 1,000 ML 100 ML IV ×3 (08:22→18:39)
[2020-09-24] MEDS: Menthol/Lanolin/Calamine/Znox 113 GM Tube 1 APPLIC TOPICAL ×2 (08:24→21:31)
[2020-09-24] MEDS: Neomycin/Polymyxin/Dexameth 5ML OPTH.BTL 1 DRP EACH EYE ×2 (08:25→17:13)
[2020-09-24] MEDS: Famotidine 200 MG/20 ML MDV 20 MG in 0.9% Normal Saline (Pres. free 8 ML 333 MG IV (08:26)
--- NOTE | 2020-09-24 09:52 | PCM.PN.SRG ---
Subjective Subjective Patient complaint of abdominal pain, complaint of NG tube Objective Data Objective Data Vital Signs: Vital Signs Temp Pulse Resp BP Pulse Ox 97.6 F L 82 16 148/98 H 95 09/24/20 04:00 09/24/20 04:00 09/24/20 04:00 09/24/20 04:00 09/24/20 04:00 Oxygen Flow Rate (L/min) 2 Oxygen Delivery Method Room Air Weight: 68.8 kg Body Mass Index (BMI) 25.9 Intake & Output: Intake and Output for Last 24 Hours 09/22/20 09/23/20 09/24/20 23:59 23:59 23:59 Intake Total 2710.00 / 2710.00 4351.00 / 4351.00 60 / 60 Output Total 3250 / 3250 760 / 940 355 / 355 Balance -540.00 / -540.00 3591.00 / 3411.00 -295 / -295 Lab / Micro Data Result Diagrams: 09/20/20 05:45 09/20/20 05:45 Micro: Microbiology 09/22/20 23:08 Mucosa - Nose SARS-CoV-2 Antigen (Rapid) - Final Physical Exam Narrative abdomen is soft with incisional tenderness dressing intact with no seepage BETSEY output is serosanguinous
[2020-09-24 10:00] VITALS: BP 152/64; PULSE 84; RESP 18; TEMP 36.7; O2SAT 95
[2020-09-24] MEDS: Venlafaxine HCl 75 MG Tablet PO ×2 (11:05→21:26)
[2020-09-24] MEDS: Acetaminophen 650 MG/20 ML UDC PO (11:05)
[2020-09-24] MEDS: hydroCHLOROthiazide 25 MG Tablet PO (11:06)
[2020-09-24] MEDS: Heparin Injection (Vial) 5,000 UNIT/ML VIAL 5000 UNIT SC ×2 (11:06→21:28)
[2020-09-24 11:51] VITALS: PULSE 80
--- NOTE | 2020-09-24 13:45 | CASEMGMT ---
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 SW met with patient in her room. Updated her that [facility] has accepted her when medically ready. SW updated RN. RN will also update patient's daughter on patient's acceptance to [facility] Daughter is coming in this afternoon. Plan: [facility]BEY RANDLE
[2020-09-24 14:33] VITALS: BP 133/55; PULSE 76; RESP 18; TEMP 36.7; O2SAT 93
[2020-09-24 17:03] VITALS: BP 136/61; PULSE 73; RESP 16; TEMP 36.4; O2SAT 94
--- NOTE | 2020-09-24 17:35 | PCM.PN.HOSP ---
Subjective Subjective Patient was seen and examined today, she does not complain of any shortness of breath or chest discomfort. Her NG tube remains in place. Objective Data Objective Data Vital Signs: Vital Signs Temp Pulse Resp BP Pulse Ox 97.5 F L 73 16 136/61 H 94 09/24/20 17:03 09/24/20 17:03 09/24/20 17:03 09/24/20 17:03 09/24/20 17:03 Oxygen Flow Rate (L/min) 2 Oxygen Delivery Method Room Air Weight: 68.8 kg Body Mass Index (BMI) 25.9 Intake & Output: Intake and Output for Last 24 Hours 09/22/20 09/23/20 09/24/20 23:59 23:59 23:59 Intake Total 2710.00 / 2710.00 4351.00 / 4351.00 204 / 204 Output Total 3250 / 3250 760 / 940 790 / 790 Balance -540.00 / -540.00 3591.00 / 3411.00 1252 / 1252 Lab / Micro Data Result Diagrams: 09/20/20 05:45 09/20/20 05:45 Micro: Microbiology 09/22/20 23:08 Mucosa - Nose SARS-CoV-2 Antigen (Rapid) - Final Physical Exam Const alert, no apparent distress, average body habitus and well nourished General Appearance: cooperative, well kempt and well developed Orientation / Consciousness: awake, oriented to person, oriented to place and oriented to time HEENT normocephalic, head/scalp atraumatic, hearing grossly normal bilaterally and moist oral mucous membranes Eyes PERRL, EOMs intact bilaterally and conjunctivae normal Neck nuchal rigidity, supple, no JVD, thyroid normal and no carotid bruits General: trachea midline Resp normal respiratory effort, no retractions, no use of accessory muscles and clear to auscultation bilaterally Auscultation: Negative for rales, rhonchi or wheezes Cardio regular rate, regular rhythm, S1 normal heart sound, S2 normal heart sound, no murmurs, no rub and no gallops GI non-distended GI Narrative: No bowel sounds were noted on examination Extremity normal to inspection and no clubbing, cyanosis or edema Skin no rashes or lesions noted, no wounds, skin turgor normal, no jaundice and no petechiae General Skin Exam: no breakdown Neuro CN's II-XII intact bilaterally, no focal motor deficits and no sensory deficits noted Sensorium / Orientation: awake and alert Speech: speech normal Psych thought process normal and affect normal Assessment & Plan Assessment/Plan (1) Partial obstruction of small intestine: PLAN: 1. Partial small bowel obstruction-status post lysis of adhesions postop day #1-, surgery is participating in her care, patient now has an NG tube. #2 type 2 diabetes #3 hyperlipidemia #4 hypothyroidism #5 macular degeneration #6 hypertension-I have decided at this time to continue holding the patient's blood pressure medication, patient's blood pressure appears stable at this time #7 chronic depression #8 dementia-this appears mild at this point Charges/Coding Visit Charges Inpatient E&M: 25353 Subs Hosp L2
[2020-09-24] MEDS: Erythromycin Base 1 OPTH.TUBE 1 APPLIC RIGHT EYE (21:27)
[2020-09-24] MEDS: Famotidine 200 MG/20 ML MDV 20 MG in 0.9% Normal Saline (Pres. free 8 ML 300 MG IV (21:34)
[2020-09-24 22:58] VITALS: BP 123/50; PULSE 72; RESP 16; TEMP 36.4; O2SAT 97
[2020-09-25] MEDS: 0.9% Normal Saline 1,000 ML 100 ML IV ×3 (04:56→23:57)
[2020-09-25 04:58] VITALS: BP 157/65; PULSE 74; RESP 16; TEMP 36.4; O2SAT 95
[2020-09-25] MEDS: Levothyroxine 100 MCG Tablet PO (04:59)
--- NOTE | 2020-09-25 07:23 | PCM.PN.SRG ---
Subjective Subjective patient's abdominal pain seems to be lessened she states that she is willing to ambulate but will require assistance - PT is consulted Objective Data Objective Data Vital Signs: Vital Signs Temp Pulse Resp BP Pulse Ox 97.5 F L 74 16 157/65 H 95 09/25/20 04:58 09/25/20 04:58 09/25/20 04:58 09/25/20 04:58 09/25/20 04:58 Oxygen Flow Rate (L/min) 2 Oxygen Delivery Method Room Air Weight: 68.8 kg Body Mass Index (BMI) 25.9 Intake & Output: Intake and Output for Last 24 Hours 09/23/20 09/24/20 09/25/20 23:59 23:59 23:59 Intake Total 4351.00 / 4351.00 2840.33 / 2840.33 1000 / 1000 Output Total 760 / 940 1040 / 1405 1120 / 1120 Balance 3591.00 / 3411.00 1800.33 / 1435.33 -120 / -120 Lab / Micro Data Result Diagrams: 09/20/20 05:45 09/20/20 05:45 Micro: Microbiology 09/22/20 23:08 Mucosa - Nose SARS-CoV-2 Antigen (Rapid) - Final Physical Exam Narrative abdomen is soft dressing intact without seepage BETSEY output is serosanguinous but more serous - clear
--- NOTE | 2020-09-25 09:47 | NT.THERAPY_ITS ---
Medical Nutrition Therapy - History Current diet/nutrition support order:: NPO - Anthropometric Measurements Height:: 5 ft 4.17 in Weight:: 68.8 kg Body Mass Index (BMI):: 25.9 - Relevant Labs Relevant Labs:: MCHC 31.1 g/dL (32-36) L 09/20/20 05:45 Anion Gap 4 (5-15) L 09/20/20 05:45 BUN 21 mg/dL (7-18) H 09/19/20 05:45 BUN/Creatinine Ratio 26.2 RATIO (10-20) H 09/20/20 05:45 Glucose 114 mg/dL (74-106) H 09/20/20 05:45 Hemoglobin A1c 6.4 % (3.8-5.6) H 09/23/20 04:40 AST 12 U/L (15-37) L 09/20/20 05:45 Total Protein 6.2 g/dL (6.4-8.2) L 09/20/20 05:45 Albumin 3.0 g/dL (3.2-5.0) L 09/20/20 05:45 TSH 7.93 uIU/mL (0.358-3.74) H 09/23/20 04:40 - Assessment Food and Nutrient Intake: Discussed w/ nursing staff. Remains NPO w/ NGT at this time. No bowel sounds. Last PO intake was 09/21, but unclear how much nutrition was absorbed per nursing staff as stomach contents were removed w/ NGT. Wt loss of 0.7kg/1% since admission (6 days)- significant for moderate malnutrition. - Nutrition Diagnosis: Intake Problem Inadequate Oral Intake Intake Problem - Etiology: r/t altered GI function Intake Problem - Signs/Symptoms: as evidenced by estimated PO intake meeting <50% of nutritional needs x 6 days Status: Active Problem - Nutrition Diagnosis: Clinical Problem Altered GI Function Clinical Problem - Etiology: r/t small bowel obstruction Clinical Problem - Signs/Symptoms: as evidenced by no bowel movement since admission, hypoactive/absent bowel sounds Status: Active Problem Acute Disease or Injury Related Malnutrition Clinical Problem - Etiology: acute, moderate malnutrition r/t inadequate energy intake d/t altered GI function Clinical Problem - Signs/Symptoms: as evidenced by nutritional intake meeting <50% of estimated nutritional needs x 6 days, unintentional wt loss of 0.7kg/1% x 6 days Status: Active Problem - Protein Calorie Malnutrition Evidence of Malnutrition Exists: Yes Moderate Protein Calorie Malnutrition: Acute Illness/Injury - Nutrition Intervention Nutrition Prescription: 1,400-1,600kcal/day (RMR x 1.3). 65-75g/day (1.0g/kg). 1800-2,000mL fluid/day (25mL/kg) - Food / Nutrient Delivery Interventions Nutrition support ordered as / adjusted to:: Advance diet as tolerated to t ransitional; recommend 120mL ensure clear w/ medpass when clear liquid diet ordered. If no improvement in bowel function and NPO anticipated to continue >5 days, recommend central line placement for initiation of TPN- consult RDN for further recommendations/management of TPN. Coordination of Nutrition Care: Discussed w/ hospitalist. Pt does not have central access for TPN at this time. Since pt had surgical intervention, it is anticipated pt will be able to resume PO diet within next 24-48 hours. - MNT Monitoring Active Nutrition Patient: Yes Nutrition Status: Requires Follow Up 3-5 Days
[2020-09-25 09:48] VITALS: BMI 25.9
[2020-09-25 10:58] VITALS: BP 132/71; PULSE 80; RESP 18; TEMP 36.6; O2SAT 95
[2020-09-25] MEDS: Famotidine 200 MG/20 ML MDV 20 MG in 0.9% Normal Saline (Pres. free 8 ML 300 MG IV ×2 (11:16→21:13)
[2020-09-25] MEDS: Menthol/Lanolin/Calamine/Znox 113 GM Tube 1 APPLIC TOPICAL ×2 (11:16→21:21)
[2020-09-25] MEDS: hydroCHLOROthiazide 25 MG Tablet PO (11:17)
[2020-09-25] MEDS: Venlafaxine HCl 75 MG Tablet PO ×2 (11:17→21:13)
[2020-09-25] MEDS: Heparin Injection (Vial) 5,000 UNIT/ML VIAL 5000 UNIT SC ×2 (11:17→21:13)
[2020-09-25] MEDS: Neomycin/Polymyxin/Dexameth 5ML OPTH.BTL 1 DRP EACH EYE ×2 (11:18→13:50)
--- NOTE | 2020-09-25 13:46 | PCM.PN.HOSP ---
Subjective Subjective Patient was seen and examined today, she still has her NG tube and with minimal bowel sounds. Objective Data Objective Data Vital Signs: Vital Signs Temp Pulse Resp BP Pulse Ox 97.9 F 80 18 132/71 H 95 09/25/20 10:58 09/25/20 10:58 09/25/20 10:58 09/25/20 10:58 09/25/20 10:58 Oxygen Flow Rate (L/min) 2 Oxygen Delivery Method Room Air Weight: 68.8 kg Body Mass Index (BMI) 25.9 Intake & Output: Intake and Output for Last 24 Hours 09/23/20 09/24/20 09/25/20 23:59 23:59 23:59 Intake Total 4351.00 / 4351.00 2840.33 / 2840.33 1656 / 1656 Output Total 760 / 940 1040 / 1405 1120 / 1120 Balance 3591.00 / 3411.00 1800.33 / 1435.33 536 / 536 Lab / Micro Data Result Diagrams: 09/20/20 05:45 09/20/20 05:45 Micro: Microbiology 09/22/20 23:08 Mucosa - Nose SARS-CoV-2 Antigen (Rapid) - Final Physical Exam Const alert and no apparent distress HEENT head/scalp atraumatic and moist oral mucous membranes Head and Scalp: normocephalic Eyes PERRL, EOMs intact bilaterally and conjunctivae normal Neck no lymphadenopathy and no JVD Resp normal respiratory effort, no retractions, no use of accessory muscles and clear to auscultation bilaterally Cardio regular rate, regular rhythm, S1 normal heart sound, S2 normal heart sound, no gallops and no clicks GI soft to palpation Auscultation: hypoactive bowel sounds Extremity normal to inspection and no clubbing, cyanosis or edema Neuro CN's II-XII intact bilaterally and no sensory deficits noted Sensorium / Orientation: awake and alert Psych affect normal Psych Narrative: :Assessment: #1 partial small bowel obstruction-status post lysis of adhesions postop day #2-surgery is participating in her care #2 type 2 diabetes #3 hyperlipidemia #4 hypothyroidism #5 macular degeneration #6 essential hypertension-patient is not currently on any medications for blood pressure #7 chronic depression-continue Effexor #8 dementia-mild Charges/Coding Visit Charges Inpatient E&M: 15740 Subs Hosp L2
[2020-09-25 15:54] VITALS: PULSE 80; O2SAT 95
[2020-09-25 16:30] VITALS: BP 133/71; PULSE 80; RESP 18; TEMP 36.6; O2SAT 96
[2020-09-25 20:30] VITALS: BP 109/62; PULSE 76; RESP 16; TEMP 37.2; O2SAT 97
[2020-09-25] MEDS: Acetaminophen 650 MG/20 ML UDC PO (21:13)
[2020-09-25] MEDS: Polyethylene Glycol 3350 17 GM PACKET PO (21:14)
[2020-09-25] MEDS: 0.9% Saline Lock 10 ML Syringe IV (21:14)
[2020-09-25] MEDS: Erythromycin Base 1 OPTH.TUBE 1 APPLIC RIGHT EYE (21:14)
[2020-09-26 02:48] VITALS: BP 117/65; PULSE 75; RESP 16; TEMP 36.6; O2SAT 97
[2020-09-26] MEDS: Acetaminophen 650 MG/20 ML UDC PO (05:23)
[2020-09-26] MEDS: Levothyroxine 100 MCG Tablet PO (05:25)
[2020-09-26 09:50] VITALS: BP 143/94; PULSE 63; RESP 16; TEMP 36.3; O2SAT 99
--- NOTE | 2020-09-26 09:56 | PCM.PN.SRG ---
Subjective Subjective patient states passing small amount of flatus Has tolerated NG tube being clamped for most of night, seems relatively minimal residual - continue this Though I have been the only physician to see patient every day for the past four days, patient continues to not know who I am and I have to repeat to her that I am the surgeon who operated on her Objective Data Objective Data Vital Signs: Vital Signs Temp Pulse Resp BP Pulse Ox 97.9 F 75 16 117/65 97 09/26/20 02:48 09/26/20 02:48 09/26/20 02:48 09/26/20 02:48 09/26/20 02:48 Oxygen Flow Rate (L/min) 2 Oxygen Delivery Method Room Air Weight: 68.8 kg Body Mass Index (BMI) 25.9 Intake & Output: Intake and Output for Last 24 Hours 09/24/20 09/25/20 09/26/20 23:59 23:59 23:59 Intake Total 2840.33 / 2840.33 4383 / 4383 60 / 60 Output Total 1040 / 1405 1310 / 1310 490 / 490 Balance 1800.33 / 1435.33 3073 / 3073 -430 / -430 Lab / Micro Data Result Diagrams: 09/20/20 05:45 09/20/20 05:45 Micro: Microbiology 09/22/20 23:08 Mucosa - Nose SARS-CoV-2 Antigen (Rapid) - Final Physical Exam Narrative abdomen is soft dressing intact with no seepage noted BETSEY output - increased but still serosanguinous
[2020-09-26] MEDS: Venlafaxine HCl 75 MG Tablet PO (10:05)
[2020-09-26] MEDS: hydroCHLOROthiazide 25 MG Tablet PO (10:05)
[2020-09-26] MEDS: Menthol/Lanolin/Calamine/Znox 113 GM Tube 1 APPLIC TOPICAL (10:05)
[2020-09-26] MEDS: Heparin Injection (Vial) 5,000 UNIT/ML VIAL 5000 UNIT SC ×2 (10:06→22:53)
[2020-09-26] MEDS: Neomycin/Polymyxin/Dexameth 5ML OPTH.BTL 1 DRP EACH EYE ×2 (10:07→18:21)
[2020-09-26] MEDS: Famotidine 200 MG/20 ML MDV 20 MG in 0.9% Normal Saline (Pres. free 8 ML 300 MG IV ×2 (10:16→22:51)
[2020-09-26] MEDS: 0.9% Normal Saline 1,000 ML 100 ML IV ×2 (10:17→19:58)
[2020-09-26] MEDS: Morphine 2 MG/ML Syringe IV ×2 (10:19→15:11)
--- NOTE | 2020-09-26 10:47 | PN_ITS ---
Progress Note Patient seen and examined. SHe had no active complaints, and had just finished working with physical therapy. She still has the NG tube in place, though it is not placed to suction. Review of systems is otherwise negative. Physical Exam Const alert, oriented x3 and no apparent distress Constitutional Narrative: frail General Appearance: cooperative and comfortable Orientation / Consciousness: awake Exam Limitations: no limitations Nutritional Appearance: thin HEENT normocephalic, head/scalp atraumatic and hearing grossly normal bilaterally Head and Scalp: normal to inspection and normocephalic Mouth: oral and palatal mucosa normal Eyes PERRL, EOMs intact bilaterally and conjunctivae normal Neck full ROM Lymph Lymphatic: no lymphadenopathy noted Resp normal respiratory effort, normal air movement, no retractions and no use of accessory muscles Cardio regular rate, regular rhythm, S1 normal heart sound, S2 normal heart sound and no murmurs GI normal to inspection, nondistended, normoactive bowel sounds, soft to palpation and non-tender GI Narrative: intact dressing over surgical site, with drain in place Extremity normal to inspection, full ROM and normal capillary refill General Extremity: normal exam except as noted Psych mental status grossly normal Assessment & Plan Assessment/Plan (1) Partial obstruction of small intestine: PLAN: #Acute partial small bowel obstruction * s/p adhesiolysis. * today is POD 3 * NG tube remains in situ, but it is not undergoing suction. * general surgery on board. * #Type 2 diabetes mellitus: on ISS. Accuchecks ACHS. metformin currently on hold #Hypertension; On HCTZ. #Chronic depresison: on effexor. DVT prophylaxis: heparin. Visit Charges Inpatient E&M: 98725 Subs Hosp L2
[2020-09-26 15:00] VITALS: BP 158/74; PULSE 80; RESP 16; TEMP 36.6; O2SAT 98
[2020-09-26] MEDS: 0.9% Saline Lock 10 ML Syringe IV (15:11)
[2020-09-26 22:47] VITALS: BP 180/63; PULSE 67; RESP 18; TEMP 36.5; O2SAT 93
[2020-09-26 22:49] VITALS: BP 180/63; PULSE 67
[2020-09-26] MEDS: hydrALAZINE 20 MG/ML Vial 10 MG IV (22:49)
[2020-09-26] MEDS: Acetaminophen 325 MG Tablet 650 MG PO (22:50)
[2020-09-26] MEDS: Erythromycin Base 1 OPTH.TUBE 1 APPLIC RIGHT EYE (22:55)
[2020-09-27] MEDS: Levothyroxine 100 MCG Tablet PO (03:51)
[2020-09-27] MEDS: 0.9% Normal Saline 1,000 ML 100 ML IV (03:52)
[2020-09-27 03:57] VITALS: BP 169/46; PULSE 71; RESP 18; TEMP 36.5; O2SAT 96
[2020-09-27 04:16] VITALS: BP 169/46; PULSE 71
[2020-09-27] MEDS: hydrALAZINE 20 MG/ML Vial 10 MG IV (04:16)
[2020-09-27 04:41] VITALS: BP 142/79; PULSE 82; RESP 20; O2SAT 95
--- NOTE | 2020-09-27 04:44 | NURSING ---
Addendum entered by Carri Torres 09/27/20 04:45: Some dizziness noted. Original Note: Assisted x2 out of bed with walker. Patient took a few steps and back to bed.
[2020-09-27 06:04] LABS: Absolute Lymphocyte Count 1.37 X10^3/uL (0.83-4.51); Basophil# 0.02 X10^3/uL; Basophil% 0.3 % (0-1); Eosinophil# 0.12 X10^3/uL; Eosinophils% 1.7 % (0-5); Hematocrit 39.7 % (37-47); Hemoglobin 13.1 g/dL (12.0-15.0); Lymphocyte # 1.37 X10^3/ul (0.83-4.51); Lymphocyte % 19.1 % (19-41); Mean Corpuscular Hgb 28.5 pg (27.0-32.0); Mean Corpuscular Volume 86.3 fL (81-99); Mean Platelet Vol. 10.2 fl (6.2-12.0); Monocyte# 0.63 X10^3/uL; Monocyte% 8.8 % (0-10); NRBC Flagged by Analyzer 0 % (0-5); Neutrophil # 5.01 X10^3/uL (2.7-7.7); Neutrophil % 69.7 % (47-70); Platelet Count 279 K/mm3 (150-450); RBC Distribution Width CV 13.2 % (11.6-14.6); White Blood Count 7.2 K/mm3 (4.4-11.0)
[2020-09-27 06:46] LABS: Anion Gap 11 (5-15); BUN 6 mg/dL (7-18); BUN/Creat Ratio 14.3 RATIO (10-20); Calcium,Total 8.7 mg/dL (8.5-10.1); Chloride 101 mmol/L (98-107); Creatinine, Serum 0.42 mg/dL (0.55-1.02); EST Glomerular Filtration Rate 152 mL/min (>60); Est Glom Filt Rate - Afr Amer 184 mL/min (>60); Estimated Creatinine Clearance 36.16 ml/min; Glucose 113 mg/dL (74-106); Sodium Level 139 mmol/L (136-145)
[2020-09-27 07:24] LABS: Magnesium 1.5 mg/dL (1.6-2.6)
--- NOTE | 2020-09-27 07:28 | PN.HOSP_ITS ---
Subjective Subjective Patient seen and examined. SHe had no complaints today and had an uneventful night. Review of systems is otherwise negative. She still has the NG tube in. General surgery plans on starting her on clear liquid diet today. She has remained hemodynamically stable. Potassium is very low at 2 and magnesium when checked today came back at 1.4. Objective Data Objective Data Vital Signs: Vital Signs Temp Pulse Resp BP Pulse Ox 97.7 F L 82 20 H 142/79 H 95 09/27/20 03:57 09/27/20 04:41 09/27/20 04:41 09/27/20 04:41 09/27/20 04:41 Oxygen Flow Rate (L/min) 2 Oxygen Delivery Method Room Air Weight: 151 lb 10.848 oz Body Mass Index (BMI) 25.9 Intake & Output: Intake and Output for Last 24 Hours 09/25/20 09/26/20 09/27/20 23:59 23:59 23:59 Intake Total 4383 / 4383 2163.33 / 2163.33 815 / 815 Output Total 1310 / 1310 2760 / 2760 200 / 200 Balance 3073 / 3073 -596.67 / -596.67 615 / 615 Lab / Micro Data Result Diagrams: 09/27/20 05:34 09/27/20 05:34 Labs: Laboratory Results - last 24 hr 09/27/20 09/27/20 09/27/20 05:34 05:34 05:34 WBC 7.2 RBC 4.60 Hgb 13.1 Hct 39.7 MCV 86.3 MCH 28.5 MCHC 33.0 RDW Std Deviation 41.0 RDW Coeff of Marleni 13.2 Plt Count 279 MPV 10.2 Immature Gran % (Auto) 0.400 Neut % (Auto) 69.7 Lymph % (Auto) 19.1 [place] % (Auto) 8.8 Eos % (Auto) 1.7 Baso % (Auto) 0.3 Absolute Neuts (auto) 5.0 Absolute Lymphs (auto) 1.37 Nucleated RBC % 0 Sodium 139 Potassium 2.0 L* Chloride 101 Carbon Dioxide 27.0 Anion Gap 11 BUN 6 L Creatinine 0.42 L Estim Creat Clear Calc 36.16 Est GFR (MDRD) Af Amer 184 Est GFR (MDRD) Non-Af 152 BUN/Creatinine Ratio 14.3 Glucose 113 H Calcium 8.7 Magnesium 1.5 L Micro: Microbiology 09/22/20 23:08 Mucosa - Nose SARS-CoV-2 Antigen (Rapid) - Final Physical Exam Const alert, oriented x3 and no apparent distress Constitutional Narrative: frail General Appearance: cooperative, comfortable, well kempt and well developed Orientation / Consciousness: awake, oriented to person, oriented to place and oriented to time Exam Limitations: no limitations Nutritional Appearance: thin HEENT normocephalic, head/scalp atraumatic, hearing grossly normal bilaterally and moist oral mucous membranes Head and Scalp: normocephalic Eyes PERRL, EOMs intact bilaterally and conjunctivae normal Neck full ROM, nuchal rigidity, no lymphadenopathy, supple, no JVD, thyroid normal and no carotid bruits General: trachea midline Lymph Lymphatic: no lymphadenopathy noted Resp normal air movement Auscultation: Negative for rales, rhonchi or wheezes Cardio regular rate, regular rhythm, S1 normal heart sound, S2 normal heart sound, no murmurs, no rub, no gallops and no clicks Cardio Narrative: mildly diminished breath sounds bibasally, no wheezes or crackles. On room air GI normal to inspection, nondistended, normoactive bowel sounds, soft to palpation, non-tender and non-distended GI Narrative: intact dressing over surgical site, with drain in place. NG tube in place Auscultation: hypoactive bowel sounds Extremity normal to inspection, full ROM, normal capillary refill and no clubbing, cyanosis or edema General Extremity: normal exam except as noted Peripheral Pulses: Yes pulses 2+ throughout Skin no rashes or lesions noted, no wounds, skin turgor normal, no jaundice and no petechiae General Skin Exam: no breakdown Neuro oriented x3, CN's II-XII intact bilaterally, no focal motor deficits and no sensory deficits noted Sensorium / Orientation: awake and alert Speech: speech normal Psych mental status grossly normal, thought process normal and affect normal Assessment & Plan Assessment/Plan (1) Partial obstruction of small intestine: PLAN: #Acute partial small bowel obstruction * s/p adhesiolysis. * today is POD 4 * NG tube remains in situ, but it is not undergoing suction. * general surgery on board. To start on clear liquids today * #Severe hypokalemia * K is 2.0. Will replace aggressively and trend. * #hypomagnesemia: Magnesium level is 1.4. Will replace and trend. * #Type 2 diabetes mellitus: on ISS. Accuchecks ACHS. metformin currently on hold #Hypertension; On HCTZ. #Chronic depresison: on effexor. DVT prophylaxis: heparin. Charges/Coding Visit Charges Inpatient E&M: 71780 Subs Hosp L3
[2020-09-27 07:49] VITALS: BP 143/64; PULSE 73; RESP 16; TEMP 36.5; O2SAT 97
[2020-09-27] MEDS: Potassium Chloride 40 MEQ in 0.9% Normal Saline 1,000 ML 100 MEQ IV (07:53)
[2020-09-27] MEDS: Potassium Chloride 10mEq/100mL 10 MEQ/100 ML IV.SOLN. 100 MEQ IV BOLUS ×4 (08:08→12:21)
[2020-09-27 08:24] LABS: Magnesium 1.4 mg/dL (1.6-2.6)
--- NOTE | 2020-09-27 10:09 | CASEMGMT ---
Social Work Note IRINA placed a call to Chanda at [facility] and provided update. IRINA faxed updated clinicals to [facility]. Plan: [facility] once medically cleared Ruth Martinez CASE MANAGER, WELL POINT PUMPING SUPERVISOR
[2020-09-27] MEDS: Menthol/Lanolin/Calamine/Znox 113 GM Tube 1 APPLIC TOPICAL ×2 (11:12→20:50)
[2020-09-27] MEDS: Venlafaxine HCl 75 MG Tablet PO ×2 (11:23→20:51)
[2020-09-27] MEDS: hydroCHLOROthiazide 25 MG Tablet PO (11:23)
[2020-09-27] MEDS: Heparin Injection (Vial) 5,000 UNIT/ML VIAL 5000 UNIT SC ×2 (11:23→20:50)
[2020-09-27] MEDS: Neomycin/Polymyxin/Dexameth 5ML OPTH.BTL 1 DRP EACH EYE ×2 (11:24→18:11)
[2020-09-27] MEDS: Famotidine 200 MG/20 ML MDV 20 MG in 0.9% Normal Saline (Pres. free 8 ML 300 MG IV ×2 (12:05→22:45)
[2020-09-27] MEDS: 0.9% Saline Lock 10 ML Syringe IV ×3 (14:01→21:54)
[2020-09-27] MEDS: Magnesium Sulfate 4gm/100mL 4 GM/100 ML IV.SOLN. IV (14:01)
[2020-09-27] MEDS: Ensure Clear 120 ML Liquid PO ×3 (14:02→20:50)
[2020-09-27 16:09] VITALS: BP 153/86; PULSE 88; RESP 18; TEMP 36.9; O2SAT 98
[2020-09-27 16:38] LABS: Anion Gap 8 (5-15); BUN 6 mg/dL (7-18); BUN/Creat Ratio 12.4 RATIO (10-20); Calcium,Total 8.3 mg/dL (8.5-10.1); Chloride 101 mmol/L (98-107); Creatinine, Serum 0.48 mg/dL (0.55-1.02); EST Glomerular Filtration Rate 130 mL/min (>60); Est Glom Filt Rate - Afr Amer 157 mL/min (>60); Estimated Creatinine Clearance 36.16 ml/min; Glucose 180 mg/dL (74-106); Potassium 2.8 mmol/L (3.5-5.1); Sodium Level 138 mmol/L (136-145)
[2020-09-27] MEDS: Potassium Chloride 10mEq/100mL 10 MEQ/100 ML IV.SOLN. 75 MEQ IV BOLUS ×4 (18:05→22:40)
[2020-09-27 20:40] VITALS: BP 169/62; PULSE 71; RESP 18; TEMP 36.7; O2SAT 94
[2020-09-27] MEDS: Erythromycin Base 1 OPTH.TUBE 1 APPLIC RIGHT EYE (20:50)
[2020-09-27] MEDS: Acetaminophen 325 MG Tablet 650 MG PO (21:53)
[2020-09-27] MEDS: Ondansetron 4 MG/2 ML Vial IV (21:53)
[2020-09-28 04:00] VITALS: BP 167/69; PULSE 74; RESP 18; TEMP 37.1; O2SAT 100
[2020-09-28 04:02] VITALS: PULSE 67
[2020-09-28] MEDS: Potassium Chloride 40 MEQ in 0.9% Normal Saline 1,000 ML 100 MEQ IV (04:02)
[2020-09-28] MEDS: hydrALAZINE 20 MG/ML Vial 10 MG IV (04:02)
[2020-09-28] MEDS: 0.9% Saline Lock 10 ML Syringe IV (04:03)
[2020-09-28 05:22] LABS: Absolute Lymphocyte Count 1.17 X10^3/uL (0.83-4.51); Absolute Neutrophil Count 4.1 X10^3/uL (2.0-7.7); Basophil# 0.01 X10^3/uL; Basophil% 0.2 % (0-1); Eosinophil# 0.09 X10^3/uL; Eosinophils% 1.5 % (0-5); Hematocrit 37.8 % (37-47); Hemoglobin 12.5 g/dL (12.0-15.0); Lymphocyte # 1.17 X10^3/ul (0.83-4.51); Lymphocyte % 19.2 % (19-41); Mean Corp Hgb Conc 33.1 g/dL (32-36); Mean Corpuscular Hgb 27.8 pg (27.0-32.0); Mean Corpuscular Volume 84.2 fL (81-99); Mean Platelet Vol. 9.7 fl (6.2-12.0); Monocyte# 0.75 X10^3/uL; Monocyte% 12.3 % (0-10); NRBC Flagged by Analyzer 0 % (0-5); Neutrophil # 4.05 X10^3/uL (2.7-7.7); Neutrophil % 66.6 % (47-70); Platelet Count 309 K/mm3 (150-450); RBC Distribution Width CV 13.2 % (11.6-14.6); RBC Distribution Width SD 41.1 fl (35.1-43.9); Red Blood Count 4.49 M/mm3 (4.2-5.4); White Blood Count 6.1 K/mm3 (4.4-11.0)
[2020-09-28 05:32] VITALS: BP 149/54
[2020-09-28] MEDS: Levothyroxine 100 MCG Tablet PO (05:34)
[2020-09-28 05:41] LABS: Anion Gap 9 (5-15); BUN 6 mg/dL (7-18); BUN/Creat Ratio 10.9 RATIO (10-20); Calcium,Total 8.7 mg/dL (8.5-10.1); Chloride 101 mmol/L (98-107); Creatinine, Serum 0.55 mg/dL (0.55-1.02); EST Glomerular Filtration Rate 112 mL/min (>60); Est Glom Filt Rate - Afr Amer 135 mL/min (>60); Estimated Creatinine Clearance 36.16 ml/min; Glucose 151 mg/dL (74-106); Potassium 2.9 mmol/L (3.5-5.1); Sodium Level 139 mmol/L (136-145)
[2020-09-28] MEDS: Ensure Clear 120 ML Liquid PO (07:56)
[2020-09-28] MEDS: Potassium Chloride 10mEq/100mL 10 MEQ/100 ML IV.SOLN. 100 MEQ IV BOLUS ×4 (07:56→12:18)
[2020-09-28] MEDS: hydroCHLOROthiazide 25 MG Tablet PO (07:57)
[2020-09-28] MEDS: Heparin Injection (Vial) 5,000 UNIT/ML VIAL 5000 UNIT SC (07:57)
[2020-09-28] MEDS: Venlafaxine HCl 75 MG Tablet PO (07:57)
[2020-09-28] MEDS: Menthol/Lanolin/Calamine/Znox 113 GM Tube 1 APPLIC TOPICAL (07:57)
[2020-09-28] MEDS: Neomycin/Polymyxin/Dexameth 5ML OPTH.BTL 1 DRP EACH EYE (07:58)
[2020-09-28] MEDS: Famotidine 200 MG/20 ML MDV 20 MG in 0.9% Normal Saline (Pres. free 8 ML 300 MG IV (07:59)
[2020-09-28] MEDS: Bisacodyl 10 MG Suppository RC (09:23)
--- NOTE | 2020-09-28 09:48 | CASEMGMT ---
Social Work Note Pt may be medically ready for discharge today. SW placed a call to Chanda at [facility] and updated her. Plan: [facility] Ruth Martinez RUBBER PRINTING MACHINE OPERATOR, BULK FLUIDS HANDLER
[2020-09-28 09:53] VITALS: BP 147/71; PULSE 87; RESP 20; TEMP 36.6; O2SAT 96
[2020-09-28 09:54] VITALS: RESP 18
--- NOTE | 2020-09-28 11:31 | NURSING ---
pt does not tolerate iv k+ running at full rate. did turn down to 50/hr
--- NOTE | 2020-09-28 11:40 | DS.PCM_ITS ---
Providers Date of Admission: 09/19/20 Primary Care Physician: Dr. Da Ocampo MD Consultations 09/19/20 07:25 Consult: General Surgery Routine Consulting Provider: Jey Smith Reason for Consult: Distal partial small bowel obstruction EMERGENT Consult: No Notified: Yes Date Notified: 09/19/20 Time Notified: 07:25 Method of Notification: Verbal 09/19/20 08:25 Consult: General Surgery Routine Consulting Provider: Jey Smith Reason for Consult: small bowel obstruction EMERGENT Consult: No Notified: Yes Date Notified: 09/19/20 Time Notified: 08:15 Method of Notification: Verbal Reason For Visit: SMALL BOWEL OBSTRUCTION Diagnosis Discharge Diagnosis (1) Partial obstruction of small intestine: Status: Acute Code(s): K56.600 - Partial intestinal obstruction, unspecified as to cause Medications at Discharge Home Medications aspirin 81 mg PO DAILY@0800 12/10/13 hydrochlorothiazide 25 mg PO DAILY 12/10/13 levothyroxine [Levoxyl] 100 mcg PO DAILY 12/10/13 metformin 500 mg PO TIDCM 12/10/13 polyethylene glycol 3350 17 g PO DAILY PRN 12/10/13 PreserVision AREDS-2 1,000 mg PO DAILY 04/22/14 oxybutynin chloride [Ditropan XL] 10 mg PO DAILY 08/25/14 venlafaxine 75 mg PO BID 08/20/18 diphenhydramine HCl 12.5 mg PO Q6H PRN 11/09/18 mupirocin calcium 1 applic TOPICAL TID 11/09/18 ascorbic acid (vitamin C) 1,000 cap PO DAILY 09/19/20 erythromycin 1 applic RIGHT EYE QHS 09/19/20 neomycin-polymyxin B-dexameth 1 drp OPHTHALMIC (EYE) BID 09/20/20 potassium chloride 40 meq PO DAILY #30 tab 09/28/20 Hospital Course Operations - (small bowel resection, adhesiolysis) Procedures None Summary of Care Provided Minutes Spent on Discharge: 50 Hospital Course: Patient is an 85-year-old female with a past medical history as outlined was admitted through the ED on 09/19/2020 with a complaint of lower abdominal pain and nausea was started around 1 AM on the morning of admission. She denied any vomiting or diarrhea. CT of the abdomen done showed mid/distal small bowel obstruction and constipation. General surgery was consulted. She was admitted and managed for small bowel obstruction. She was hydrated with IV fluids. Plan was initially for conservative management. Patient initially refused NG tube decompression. She started to improve clinically but subse quently abdominal pain worsened and KUB done showed dilated small bowels. Repeat CT scan of the abdomen done with oral contrast showed small bowel obstruction. She had exploratory laparotomy with adhesiolysis and small bowel resection. NG tube was inserted. She also had abdominal drain in place. Postop course was noncomplicated and patient eventually had NG tube pulled out in drain removed. She was able to tolerate clear liquids and was able to advance to soft diet. She remained stable and was discharged to a care home on 09/28/2020. She is to follow-up with her primary care doctor and general surgery. Patient was seen and examined prior to discharge. She had no complaints. Revie w of symptoms otherwise negative. Labs and vitals reviewed. Home medication reviewed and reconciled. Physical Exam Const alert, oriented x3 and no apparent distress Constitutional Narrative: frail General Appearance: cooperative, comfortable, well kempt and well developed Orientation / Consciousness: awake, oriented to person, oriented to place and oriented to time Exam Limitations: no limitations Nutritional Appearance: thin HEENT normocephalic, head/scalp atraumatic, hearing grossly normal bilaterally and moist oral mucous membranes Eyes PERRL, EOMs intact bilaterally and conjunctivae normal Neck full ROM, nuchal rigidity, no lymphadenopathy, supple, no JVD, thyroid normal and no carotid bruits General: trachea midline Lymph Lymphatic: no lymphadenopathy noted Resp normal respiratory effort, normal air movement, no retractions, no use of accessory muscles and clear to auscultation bilaterally Auscultation: Negative for rales, rhonchi or wheezes Cardio regular rate, regular rhythm, S1 normal heart sound, S2 normal heart sound, no murmurs, no rub, no gallops and no clicks GI normal to inspection, nondistended, normoactive bowel sounds, soft to palpation, non-tender and non-distended GI Narrative: intact dressing over surgical site, with drain in place. NG tube removed, abdominal drain removed. Auscultation: hypoactive bowel sounds Extremity normal to inspection, full ROM, normal capillary refill and no clubbing, cyanosis or edema General Extremity: normal exam except as noted Skin no rashes or lesions noted, no wounds, skin turgor normal, no jaundice and no petechiae General Skin Exam: no breakdown Neuro oriented x3, CN's II-XII intact bilaterally, no focal motor deficits and no sensory deficits noted Sensorium / Orientation: awake and alert Speech: speech normal Psych mental status grossly normal, thought process normal and affect normal Weight / BMI Weight Weight: 151 lb 10.848 oz Body Mass Index (BMI) 25.9 ABG / Lab / Microbiology Data Result Diagrams: 09/28/20 04:50 09/28/20 04:50 Laboratory: Laboratory Results - last 24 hr 09/27/20 09/28/20 09/28/20 15:20 04:50 04:50 WBC 6.1 RBC 4.49 Hgb 12.5 Hct 37.8 MCV 84.2 MCH 27.8 MCHC 33.1 RDW Std Deviation 41.1 RDW Coeff of Marleni 13.2 Plt Count 309 MPV 9.7 Immature Gran % (Auto) 0.200 Neut % (Auto) 66.6 Lymph % (Auto) 19.2 [place] % (Auto) 12.3 H Eos % (Auto) 1.5 Baso % (Auto) 0.2 Absolute Neuts (auto) 4.1 Absolute Lymphs (auto) 1.17 Nucleated RBC % 0 Sodium 138 139 Potassium 2.8 L 2.9 L Chloride 101 101 Carbon Dioxide 29.0 29.0 Anion Gap 8 9 BUN 6 L 6 L Creatinine 0.48 L 0.55 Estim Creat Clear Calc 36.16 36.16 Est GFR (MDRD) Af Amer 157 135 Est GFR (MDRD) Non-Af 130 112 BUN/Creatinine Ratio 12.4 10.9 Glucose 180 H 151 H Calcium 8.3 L 8.7 Magnesium 09/28/20 04:50 WBC RBC Hgb Hct MCV MCH MCHC RDW Std Deviation RDW Coeff of Marleni Plt Count MPV Immature Gran % (Auto) Neut % (Auto) Lymph % (Auto) [place] % (Auto) Eos % (Auto) Baso % (Auto) Absolute Neuts (auto) Absolute Lymphs (auto) Nucleated RBC % Sodium Potassium Chloride Carbon Dioxide Anion Gap BUN Creatinine Estim Creat Clear Calc Est GFR (MDRD) Af Amer Est GFR (MDRD) Non-Af BUN/Creatinine Ratio Glucose Calcium Magnesium 2.0 Microbiology: Microbiology 09/22/20 23:08 Mucosa - Nose SARS-CoV-2 Antigen (Rapid) - Final D/C Instructions Discharge Diet: 2000 mg Sodium Diet Discharge Activity: Return to Normal Activity Call your doctor if your incision/area has: Continuous Slow Oozing, Sudden Increased Bleeding, Increased Pain/ Swelling, Increased Redness, Foul Smelling Discharge and Swelling at the incision site Call your doctor if you observe: Fever of 101 or Higher, Inability to have a bowel movement, Swelling in the ankles, Increased palpitations (irregular heartbeat) and Uncontrolled pain Meaningful Use Info Meaningful Use Diagnoses (Choose all that apply): None applicable Discharge Plan Admission Admit Date/Time: 09/19/20 08:17 Primary Reason for Your Visit: small bowel obstruction Attending Provider: Julia Middleton Primary Care Provider: Da Ocampo Consulting Providers: Jey Smith Instructions Patient Instructions: Small Bowel Obstruction, Obstruction Intestinal Additional Instructions / Restrictions: Recommended pain control regimen - May take 600 mg ibuprofen (Motrin) and then in 3-4 hours, may take 650 mg acetaminophen (Tylenol), then in 3-4 hours may take 600 mg ibuprofen, then in 3- 4 hours may take 650 mg acetaminophen and so on for 2-3 days Leave steristrips and opsite in place - may get wet in shower - do not scrub in the area to prevent unravelling of the steristrips Do not soak - no tub baths/swimming Ice applied to areas of discomfort may help No lifting/pushing/pulling greater than 10 pounds for a month. Regular diet as tolerated, drink plenty of fluids. Avoid carbonated beverages for a few days as this will cause abdominal bloating and thus discomfort after our surgery. Please call my office for an appointment to see me in 1-2 weeks. Office number is If any questions, please call my office at and ask the assembly operator for the general surgery nurses desk Discharge Orders/Prescriptions Prescriptions: New potassium chloride 20 mEq tablet extended release 40 meq PO DAILY Qty: 30 RF: 0 Continued aspirin 81 MG tablet,chewable 81 mg PO DAILY@0800 RF: 0 metformin 500 MG tablet 500 mg PO TIDCM RF: 0 polyethylene glycol 3350 17 GM powder in packet 17 g PO DAILY PRN (Reason: Constipation) RF: 0 levothyroxine [Levoxyl] 88 MCG tablet 100 mcg PO DAILY RF: 0 hydrochlorothiazide 25 MG tablet 25 mg PO DAILY RF: 0 PreserVision AREDS-2 1 EACH capsule 1,000 mg PO DAILY RF: 0 oxybutynin chloride [Ditropan XL] 10 MG tablet extended release 24hr 10 mg PO DAILY RF: 0 venlafaxine 75 MG tablet 75 mg PO BID RF: 0 mupirocin calcium 15 GM cream 1 applic topical TID RF: 0 diphenhydramine HCl 25 MG capsule 12.5 mg PO Q6H PRN (Reason: Itching & Insomnia) RF: 0 ascorbic acid (vitamin C) 1,000 mg Capsule, Extended Release 1,000 cap PO DAILY RF: 0 erythromycin 5 mg/gram (0.5 %) Ointment 1 applic RIGHT EYE QHS RF: 0 neomycin-polymyxin B-dexameth Drops,Suspension 1 drp OPHTHALMIC (EYE) BID RF: 0 Referrals / Follow Up: Alfreda Dillon MD [STAFF PHYSICIAN] - Within 1 Week Da Ocampo MD [Primary Care Provider] - Within 1 Week Disposition Disposition (needs filled in before D/C Order can be placed): [facility] Charges/Coding Visit Charges Inpatient E&M: 96013 Disch Hosp
--- NOTE | 2020-09-28 12:43 | PCM.PN.SRG ---
Subjective Subjective patient passing flatus rehabilitation will be slow - patient is deconditioned Objective Data Objective Data Vital Signs: Vital Signs Temp Pulse Resp BP Pulse Ox 97.8 F 87 18 147/71 H 96 09/28/20 09:53 09/28/20 09:53 09/28/20 09:54 09/28/20 09:53 09/28/20 09:53 Oxygen Flow Rate (L/min) 2 Oxygen Delivery Method Room Air Weight: 68.8 kg Body Mass Index (BMI) 25.9 Intake & Output: Intake and Output for Last 24 Hours 09/26/20 09/27/20 09/28/20 23:59 23:59 23:59 Intake Total 2163.33 / 2163.33 3681.25 / 3681.25 1391.67 / 1391.67 Output Total 2760 / 2760 795 / 795 900 / 900 Balance -596.67 / -596.67 2886.25 / 2886.25 491.67 / 491.67 Lab / Micro Data Result Diagrams: 09/28/20 04:50 09/28/20 04:50 Labs: Laboratory Results - last 24 hr 09/27/20 09/28/20 09/28/20 15:20 04:50 04:50 WBC 6.1 RBC 4.49 Hgb 12.5 Hct 37.8 MCV 84.2 MCH 27.8 MCHC 33.1 RDW Std Deviation 41.1 RDW Coeff of Marleni 13.2 Plt Count 309 MPV 9.7 Immature Gran % (Auto) 0.200 Neut % (Auto) 66.6 Lymph % (Auto) 19.2 [place] % (Auto) 12.3 H Eos % (Auto) 1.5 Baso % (Auto) 0.2 Absolute Neuts (auto) 4.1 Absolute Lymphs (auto) 1.17 Nucleated RBC % 0 Sodium 138 139 Potassium 2.8 L 2.9 L Chloride 101 101 Carbon Dioxide 29.0 29.0 Anion Gap 8 9 BUN 6 L 6 L Creatinine 0.48 L 0.55 Estim Creat Clear Calc 36.16 36.16 Est GFR (MDRD) Af Amer 157 135 Est GFR (MDRD) Non-Af 130 112 BUN/Creatinine Ratio 12.4 10.9 Glucose 180 H 151 H Calcium 8.3 L 8.7 Magnesium 09/28/20 04:50 WBC RBC Hgb Hct MCV MCH MCHC RDW Std Deviation RDW Coeff of Marleni Plt Count MPV Immature Gran % (Auto) Neut % (Auto) Lymph % (Auto) [place] % (Auto) Eos % (Auto) Baso % (Auto) Absolute Neuts (auto) Absolute Lymphs (auto) Nucleated RBC % Sodium Potassium Chloride Carbon Dioxide Anion Gap BUN Creatinine Estim Creat Clear Calc Est GFR (MDRD) Af Amer Est GFR (MDRD) Non-Af BUN/Creatinine Ratio Glucose Calcium Magnesium 2.0 Micro: Microbiology 09/22/20 23:08 Mucosa - Nose SARS-CoV-2 Antigen (Rapid) - Final Physical Exam Narrative abdomen is soft and benign wound is healing well - no evidence of infection
--- NOTE | 2020-09-28 12:47 | DCINST_ITS ---
Discharge Instructions Follow Up Care Test Results: Test results from this visit will be discussed in further detail at your follow-up appointment, if applicable. Discharge Plan Admission Admit Date/Time: 09/19/20 08:17 Attending Provider: Julia Middleton Primary Care Provider: Da Ocampo Consulting Providers: Jey Smith Instructions Patient Instructions: ED Chest Pain, Noncardiac Additional Instructions / Restrictions: Recommended pain control regimen - May take 600 mg ibuprofen (Motrin) and then in 3-4 hours, may take 650 mg acetaminophen (Tylenol), then in 3-4 hours may take 600 mg ibuprofen, then in 3- 4 hours may take 650 mg acetaminophen and so on for 2-3 days Leave steristrips and opsite in place - may get wet in shower - do not scrub in the area to prevent unravelling of the steristrips Do not soak - no tub baths/swimming Ice applied to areas of discomfort may help No lifting/pushing/pulling greater than 10 pounds for a month. Regular diet as tolerated, drink plenty of fluids. Avoid carbonated beverages for a few days as this will cause abdominal bloating and thus discomfort after our surgery. Please call my office for an appointment to see me in 1-2 weeks. Office number is If any questions, please call my office at and ask the feather curling machine operator for the general surgery nurses desk Discharge Orders/Prescriptions Prescriptions: No Action aspirin 81 MG tablet,chewable 81 mg PO DAILY@0800 RF: 0 metformin 500 MG tablet 500 mg PO TIDCM RF: 0 polyethylene glycol 3350 17 GM powder in packet 17 g PO DAILY PRN (Reason: Constipation) RF: 0 levothyroxine [Levoxyl] 88 MCG tablet 100 mcg PO DAILY RF: 0 hydrochlorothiazide 25 MG tablet 25 mg PO DAILY RF: 0 PreserVision AREDS-2 1 EACH capsule 1,000 mg PO DAILY RF: 0 oxybutynin chloride [Ditropan XL] 10 MG tablet extended release 24hr 10 mg PO DAILY RF: 0 venlafaxine 75 MG tablet 75 mg PO BID RF: 0 mupirocin calcium 15 GM cream 1 applic topical TID RF: 0 diphenhydramine HCl 25 MG capsule 12.5 mg PO Q6H PRN (Reason: Itching & Insomnia) RF: 0 Vitamin C 1,000 mg Capsule, Extended Release 1,000 cap PO DAILY RF: 0 erythromycin 5 mg/gram (0.5 %) Ointment 1 applic RIGHT EYE QHS RF: 0 Maxitrol Drops,Suspension 1 drp OPHTHALMIC (EYE) BID RF: 0 Referrals / Follow Up: Da Ocampo MD [Primary Care Provider] - Disposition Discharge Orders: Discharge Patient (Routine); Ordered 09/28/20 Ordered By: Dr. Julia Middleton
[2020-09-28 13:26] VITALS: BP 151/80; PULSE 76; RESP 18; TEMP 37.1; O2SAT 96
--- NOTE | 2020-09-28 14:15 | TREXTCAR_ITS ---
Diet 09/28/20 08:17 Diet: Transitional Is pt able to select menu?: No Diet Comments: no carbonated beverages, please send carton of glucerna w/each meal Wound(s) abdomen: Wound Type: Surgical Incision Problem/Diagnosis (1) Partial obstruction of small intestine: Status: Acute Allergies/Procedures Done in Hospital Allergies amoxicillin [From Augmentin] Allergy (Verified 09/19/20 05:48) Itching cefdinir Allergy (Verified 09/19/20 05:48) Rash ciprofloxacin [From Cipro] Allergy (Verified 09/19/20 05:48) Swelling clavulanic acid [From Augmentin] Allergy (Verified 09/19/20 05:48) Itching doxycycline calcium [From Vibramycin] Allergy (Verified 09/19/20 05:48) Unknown doxycycline hyclate [From Vibramycin] Allergy (Verified 09/19/20 05:48) Unknown doxycycline monohydrate [From Vibramycin] Allergy (Verified 09/19/20 05:48) Unknown fluticasone Allergy (Verified 09/19/20 05:48) Unknown influenza virus vaccine, specific [Influenza Virus Vacc,Specific] Allergy (Verified 09/19/20 05:48) Swelling losartan Allergy (Verified 09/19/20 05:48) Angioedema pneumococcal vaccine [Pneumococcal Vaccine] Allergy (Verified 09/19/20 05:48) Rash promethazine HCl [From Phenergan] Allergy (Verified 09/19/20 05:48) Unknown tetracycline [Tetracycline] Allergy (Verified 09/19/20 05:48) Unknown cephalexin [From Keflex] Adverse Reaction (Verified 09/19/20 05:48) Rash metronidazole [From Flagyl] Adverse Reaction (Verified 09/19/20 05:48) Unknown sulfamethoxazole [From Bactrim] Adverse Reaction (Verified 09/19/20 05:48) Rash trimethoprim [From Bactrim] Adverse Reaction (Verified 09/19/20 05:48) Rash Type of Care/Length of Stay Estimated LOS: More Than 30 Days Type of Care Needed: Skilled Rehab Potential: Fair Prognosis: Fair Additional Orders/Day of Discharge Day of Discharge: 09/28/20 Dietary and Speech Recommendations Dietitian Recommendations/Changes: Continue transitional diet as tolerated; 120mL ensure clear w/ medpass and glucerna ONS w/ meals. Discharge Plan Admission Admit Date/Time: 09/19/20 08:17 Primary Reason for Your Visit: small bowel obstruction Attending Provider: Julia Middleton Primary Care Provider: Da Ocampo Consulting Providers: Jey Smith Instructions Patient Instructions: Small Bowel Obstruction, Obstruction Intestinal Additional Instructions / Restrictions: Recommended pain control regimen - May take 600 mg ibuprofen (Motrin) and then in 3-4 hours, may take 650 mg acetaminophen (Tylenol), then in 3-4 hours may take 600 mg ibuprofen, then in 3- 4 hours may take 650 mg acetaminophen and so on for 2-3 days Leave steristrips and opsite in place - may get wet in shower - do not scrub in the area to prevent unravelling of the steristrips Do not soak - no tub baths/swimming Ice applied to areas of discomfort may help No lifting/pushing/pulling greater than 10 pounds for a month. Regular diet as tolerated, drink plenty of fluids. Avoid carbonated beverages for a few days as this will cause abdominal bloating and thus discomfort after our surgery. Please call my office for an appointment to see me in 1-2 weeks. Office number is If any questions, please call my office at and ask the air hammer operator for the general surgery nurses desk Discharge Orders/Prescriptions Prescriptions: New potassium chloride 20 mEq tablet extended release 40 meq PO DAILY Qty: 30 RF: 0 Continued aspirin 81 MG tablet,chewable 81 mg PO DAILY@0800 RF: 0 metformin 500 MG tablet 500 mg PO TIDCM RF: 0 polyethylene glycol 3350 17 GM powder in packet 17 g PO DAILY PRN (Reason: Constipation) RF: 0 levothyroxine [Levoxyl] 88 MCG tablet 100 mcg PO DAILY RF: 0 hydrochlorothiazide 25 MG tablet 25 mg PO DAILY RF: 0 PreserVision AREDS-2 1 EACH capsule 1,000 mg PO DAILY RF: 0 oxybutynin chloride [Ditropan XL] 10 MG tablet extended release 24hr 10 mg PO DAILY RF: 0 venlafaxine 75 MG tablet 75 mg PO BID RF: 0 mupirocin calcium 15 GM cream 1 applic topical TID RF: 0 diphenhydramine HCl 25 MG capsule 12.5 mg PO Q6H PRN (Reason: Itching & Insomnia) RF: 0 ascorbic acid (vitamin C) 1,000 mg Capsule, Extended Release 1,000 cap PO DAILY RF: 0 erythromycin 5 mg/gram (0.5 %) Ointment 1 applic RIGHT EYE QHS RF: 0 neomycin-polymyxin B-dexameth Drops,Suspension 1 drp OPHTHALMIC (EYE) BID RF: 0 Referrals / Follow Up: Alfreda Dillon MD [STAFF PHYSICIAN] - Within 1 Week Da Ocampo MD [Primary Care Provider] - Within 1 Week Disposition Disposition (needs filled in before D/C Order can be placed): Shelter Facility
--- NOTE | 2020-09-28 14:15 | CASEMGMT ---
Social Work Pt ready for discharge at this time and plans to discharge to [facility]. Transportation set up with [facility] for WC hop picker at 4pm. [facility] notified of discharge time. Pt sleeping soundly, SW did not disturb. Informed RN of pickup time and RN will notify pt when she awakens. Phone call to pt dgt Josey and updated on discharge plan and cost of transport. Dgt is agreeable. Orders faxed to [facility] 7000 convalescent form had been completed in [employer] system. Nursing updated on d/c plan. Plan: [facility] ALENA Frazier
--- NOTE | 2020-09-28 14:21 | PHA.DC.MR ---
Pharmacy Service has performed discharge medication reconciliation for this patient. The patient's discharge medication list was reviewed for discrepancies and discrepancies were resolved. Home Medications aspirin 81 mg PO DAILY@0800 12/10/13 hydrochlorothiazide 25 mg PO DAILY 12/10/13 levothyroxine [Levoxyl] 100 mcg PO DAILY 12/10/13 metformin 500 mg PO TIDCM 12/10/13 polyethylene glycol 3350 17 g PO DAILY PRN 12/10/13 PreserVision AREDS-2 1,000 mg PO DAILY 04/22/14 oxybutynin chloride [Ditropan XL] 10 mg PO DAILY 08/25/14 venlafaxine 75 mg PO BID 08/20/18 diphenhydramine HCl 12.5 mg PO Q6H PRN 11/09/18 mupirocin calcium 1 applic TOPICAL TID 11/09/18 ascorbic acid (vitamin C) 1,000 cap PO DAILY 09/19/20 erythromycin 1 applic RIGHT EYE QHS 09/19/20 neomycin-polymyxin B-dexameth 1 drp OPHTHALMIC (EYE) BID 09/20/20 potassium chloride 40 meq PO DAILY #30 tab 09/28/20
== END 2020-09-28 16:19 | disposition skilled nursing facility (03) | DRG 330 ==
LOC: ED 07:25 → MS3 07:58
PROVIDERS: Anesthesiology; Hospitalist; Surgery; Admitting Provider Internal Medicine; Emergency Provider Emergency Medicine; PCP Family Medicine; Visit Provider Student in an Organized Health Care Education/Training Program
PROC: 0DB80ZZ Excision of Small Intestine, Open Approach (ICD-10-PCS; CPT 49000; principal; 2020-09-23 05:40)
DX: K56.51 Intestinal adhesions [bands], with partial obstruction (principal); E44.0 Moderate protein-calorie malnutrition; E87.6 Hypokalemia; E83.42 Hypomagnesemia; Z20.822 Contact with and (suspected) exposure to COVID-19; E11.9 Type 2 diabetes mellitus without complications; I10 Essential (primary) hypertension; E03.9 Hypothyroidism, unspecified; H35.30 Unspecified macular degeneration; F03.90 Unspecified dementia, unspecified severity, without behavioral disturbance, psychotic disturbance, mood disturbance, and anxiety; F32.9 Major depressive disorder, single episode, unspecified; F41.9 Anxiety disorder, unspecified; E66.9 Obesity, unspecified; Z68.25 Body mass index [BMI] 25.0-25.9, adult; Z79.84 Long term (current) use of oral hypoglycemic drugs; Z79.82 Long term (current) use of aspirin; Z79.890 Hormone replacement therapy; Z79.899 Other long term (current) drug therapy; Z87.19 Personal history of other diseases of the digestive system
CPT/HCPCS: 36415; 74018; 74176; 74177; 80048; 80053; 82962; 83036; 83690; 83735; 84443; 85025; 85730; 87426; 88305; 88307; 88341; 88342; 93005; 97110; 97116; 97162; 97165; 97530; 97535; 97803; 99251; 99285; J7030; J7120; Q9967; A4216; G0463; J2405; J3490

== ENCOUNTER 2021-02-17 14:00 | Emergency (ER) | payer MEDICARE, OTHER, SELFPAY ==
[2021-02-17 14:01] VITALS: BP 180/69; PULSE 621; RESP 15; TEMP 37; O2SAT 99; BMI 27.8
[2021-02-17 14:07] VITALS: O2SAT 97
--- NOTE | 2021-02-17 15:25 | RAD_ITS ---
EXAM: XR RIGHT RIBS AND AP CHEST, 3 OR MORE VIEWS : 1935 CLINICAL INDICATION: pain TECHNIQUE: Frontal and oblique views of the right ribs and frontal view of the chest. This report was created using [employer] report generation technology. COMPARISON: None. FINDINGS: LUNGS AND PLEURAL SPACES: Unremarkable. No consolidation or edema. No pneumothorax. No effusion. HEART: Unremarkable. Cardiac silhouette not enlarged. MEDIASTINUM: Central airways and mediastinal contour are unremarkable. BONES/JOINTS: Unremarkable. No evidence of displaced rib fractures. RAD/Ribs Uni Min 3V w/PA Chest IMPRESSION: Negative chest and right ribs series. at 1636 Reported and signed by: Kenny Ramires MD Electronically Signed: Kenny Ramires MD at 16:35 EST Tel , Service support ,
--- NOTE | 2021-02-17 15:25 | RAD_ITS ---
EXAM: XR RIGHT ELBOW COMPLETE, 3 OR MORE VIEWS : 1935 CLINICAL INDICATION: injury TECHNIQUE: Frontal, lateral and oblique views of the right elbow. This report was created using [employer] report generation technology. COMPARISON: None. FINDINGS: BONES/JOINTS: Unremarkable. There is no displacement of the anterior or posterior fat pads. No acute fracture. No subluxation. Normal alignment. Preservation of the joint space. No destructive or sclerotic lesions. SOFT TISSUES: Unremarkable. No soft tissue swelling or gas. No radiopaque foreign body. RAD/Elbow min 3 Views IMPRESSION: Negative right elbow. at 1631 Reported and signed by: Kenny Ramires MD Electronically Signed: Kenny Ramires MD at 16:29 EST Tel , Service support ,
--- NOTE | 2021-02-17 15:29 | EDS_ITS ---
HPI History of Present Illness Chief Complaint: Fall Narrative Narrative: Patient is an 85-year-old female from home. She states that she sat to her cell phone on the floor and was leaning over to pick it up when she lost her balance and fell landing on her right side. She denies striking her head or any loss of consciousness or blood thinner use. She states this injury occurred approximately 30 minutes to 1 hour prior to arrival. She states she has had some pain in her right elbow and right chest. She states she has concern for a fracture because of these areas of pain and the fall and therefore comes in for evaluation. [facility] Medical History Anxiety Cancer Diabetes Heart murmur Hypertension Hypothyroidism Home Medications aspirin 81 mg PO DAILY@0800 12/10/13 [History Last Taken Unknown] hydrochlorothiazide 25 mg PO DAILY 12/10/13 [History Last Taken Unknown] levothyroxine [Levoxyl] 100 mcg PO DAILY 12/10/13 [History Last Taken 08/31/14 07:30] metformin 500 mg PO TIDCM 12/10/13 [History Last Taken Unknown] polyethylene glycol 3350 17 g PO DAILY PRN 12/10/13 [History Last Taken Unknown] PreserVision AREDS-2 1,000 mg PO DAILY 04/22/14 [History Last Taken Unknown] oxybutynin chloride [Ditropan XL] 10 mg PO DAILY 08/25/14 [History Last Taken Unknown] venlafaxine 75 mg PO BID 08/20/18 [History Last Taken Unknown] diphenhydramine HCl 12.5 mg PO Q6H PRN 11/09/18 [History Last Taken Unknown] mupirocin calcium 1 applic TOPICAL TID 11/09/18 [History Last Taken Unknown] ascorbic acid (vitamin C) 1,000 cap PO DAILY 09/19/20 [History Last Taken Unknown] erythromycin 1 applic RIGHT EYE QHS 09/19/20 [History Last Taken Unknown] neomycin-polymyxin B-dexameth 1 drp OPHTHALMIC (EYE) BID 09/20/20 [History Last Taken Unknown] potassium chloride 40 meq PO DAILY #30 tab 09/28/20 [Rx Last Taken Unknown] Allergy/AdvReac Type Severity Reaction Status Date / Time amoxicillin [From Augmentin] Allergy Itching Verified 09/19/20 05:48 cefdinir Allergy Rash Verified 09/19/20 05:48 ciprofloxacin [From Cipro] Allergy Swelling Verified 09/19/20 05:48 clavulanic acid Allergy Itching Verified 09/19/20 05:48 [From Augmentin] doxycycline calcium Allergy Unknown Verified 09/19/20 05:48 [From Vibramycin] doxycycline hyclate Allergy Unknown Verified 09/19/20 05:48 [From Vibramycin] doxycycline monohydrate Allergy Unknown Verified 09/19/20 05:48 [From Vibramycin] fluticasone Allergy Unknown Verified 09/19/20 05:48 influenza virus vaccine, Allergy Swelling Verified 09/19/20 05:48 specific [Influenza Virus Vacc,Specific] losartan Allergy Angioedema Verified 09/19/20 05:48 pneumococcal vaccine Allergy Rash Verified 09/19/20 05:48 [Pneumococcal Vaccine] promethazine HCl Allergy Unknown Verified 09/19/20 05:48 [From Phenergan] tetracycline [Tetracycline] Allergy Unknown Verified 09/19/20 05:48 cephalexin [From Keflex] AdvReac Rash Verified 09/19/20 05:48 metronidazole [From Flagyl] AdvReac Unknown Verified 09/19/20 05:48 sulfamethoxazole AdvReac Rash Verified 09/19/20 05:48 [From Bactrim] trimethoprim [From Bactrim] AdvReac Rash Verified 09/19/20 05:48 Surgical History History of cataract surgery History of exploratory laparotomy History of hysterectomy Hx of tonsillectomy Social History household members: none Smoking Status: Never smoker alcohol intake: current alcohol intake frequency: holidays/special occasions only substance use type: does not use ROS ROS ED Constitutional Constitutional ED: Denies chills or fever(s) Cardiovascular Cardiovascular: Reports chest pain Respiratory/Chest Respiratory/Chest: Denies cough or dyspnea Gastrointestinal Gastrointestinal: Denies abdominal pain, diarrhea, nausea or vomiting Genitourinary Genitourinary ED: Denies dysuria Musculoskeletal Musculoskeletal: Reports other Details: Positive right elbow pain ; Denies back pain, myalgias or neck pain Integumentary Reports Abrasions; Denies rash Neurologic Neurologic: Denies headache(s) Hematologic/Lymphatic Hematologic/Lymphatic: Denies easy bleeding or easy bruising EXAM Physical Exam Const Vital Signs: 02/17/21 14:01 02/17/21 14:07 02/17/21 17:01 Temperature 98.6 F Temperature Source Oral Pulse Rate 621 H 59 L Respiratory Rate 15 16 Respiratory Effort Normal Non-Labored Respiratory Depth Normal Respiratory Pattern Normal Blood Pressure 180/69 H 132/67 H Blood Pressure Mean 106 88 Pulse Ox 99 97 96 Oxygen Delivery Method Room Air Room Air Room Air Positive well nourished and well developed General Appearance ED: well developed HEENT HEENT Narrative: No signs of depressed or basilar skull fracture Eyes PERRL and EOMs intact bilaterally Eyes Narrative: Patient has bilateral cataracts greatest on the right Neck supple Neck Narrative: No bony deformity or step-off of the cervical spine no midline pain with palpation Chest Wall Chest Narrative: There is right anterior pain with palpation over top rib regions 8-11 without bony deformity or crepitance Resp normal respiratory effort and clear to auscultation bilaterally Cardio regular rate and regular rhythm Rate: other Other Details: Radial pulses are plus 2 out of 4 bilaterally are equal and symmetric GI normal to inspection, nondistended, normoactive bowel sounds, non-tender, non- distended and no masses GI Narrative: No voluntary guarding no rigidity no pulsatile mass Auscultation: normoactive bowel sounds Palpation: soft Back/Spine Back/Spine Narrative: No bony deformity or step-off of the thoracic or lumbar spine no midline pain with palpation Extremity Extremity Narrative: Pelvis is stable there is no shortening or external rotation of either lower extremity. Patient has an abrasion and small amount of ecchymosis along the right elbow consistent with report of trauma but no obvious bony deformity or joint effusion. Neuro oriented x3 and CN's II-XII intact bilaterally Sensorium / Orientation: alert Psych mental status grossly normal Skin Skin Narrative: Soft tissue abrasion with ecchymosis to the right elbow as documented above MDM MDM MDM Narrative Medical decision making narrative: Patient presented with a mechanical fall she did not strike her head or have loss of consciousness nor she on blood thinner so I felt no need for head CT. X-rays of the elbow on chest were obtained because of her pain and showed no acute rib fracture or pneumothorax or fractured elbow. The patient had concerned that she would not be able to ambulate so she was given a walker which she uses normally at home and was found to walk well multiple feet to and from the bathroom. The patient still had concerned so I had social work talk to the patient. They informed her that she is not a candidate for placement and the patient states that she accepts this and as she is able to ambulate would like to be discharged at this time. Therefore his overall work-up is negative for acute trauma and patient can ambulate with a steady gait using her baseline walker she is safe for discharge Radiography Diagnostic Testing: Clinical Impression(s) from Imaging Studies Elbow X-Ray 02/17/21 15:25 IMPRESSION: Negative right elbow. at 1631 Reported and signed by: Kenny Ramires MD Electronically Signed: Kenny Ramires MD at 16:29 EST Tel , Service support , Ribs w/Chest X-Ray 02/17/21 15:25 IMPRESSION: Negative chest and right ribs series. at 1630 Reported and signed by: Kenny Ramires MD Electronically Signed: Kenny Ramires MD at 16:35 EST Tel , Service support , Discharge Plan Triage Chief Complaint: Fall ED Provider: Medardo Lott Dx/Rx/DC Orders Clinical Impression: Contusion of rib, Accidental fall Instructions: ED Contusion, Rib, ED Fall Prevention Prescriptions: No Action aspirin 81 MG tablet,chewable 81 mg PO DAILY@0800 RF: 0 metformin 500 MG tablet 500 mg PO TIDCM RF: 0 polyethylene glycol 3350 17 GM powder in packet 17 g PO DAILY PRN (Reason: Constipation) RF: 0 levothyroxine [Levoxyl] 88 MCG tablet 100 mcg PO DAILY RF: 0 hydrochlorothiazide 25 MG tablet 25 mg PO DAILY RF: 0 PreserVision AREDS-2 1 EACH capsule 1,000 mg PO DAILY RF: 0 oxybutynin chloride [Ditropan XL] 10 MG tablet extended release 24hr 10 mg PO DAILY RF: 0 venlafaxine 75 MG tablet 75 mg PO BID RF: 0 mupirocin calcium 15 GM cream 1 applic topical TID RF: 0 diphenhydramine HCl 25 MG capsule 12.5 mg PO Q6H PRN (Reason: Itching & Insomnia) RF: 0 ascorbic acid (vitamin C) 1,000 mg Capsule, Extended Release 1,000 cap PO DAILY RF: 0 erythromycin 5 mg/gram (0.5 %) Ointment 1 applic RIGHT EYE QHS RF: 0 neomycin-polymyxin B-dexameth Drops,Suspension 1 drp OPHTHALMIC (EYE) BID RF: 0 potassium chloride 20 mEq tablet extended release 40 meq PO DAILY Qty: 30 RF: 0 Primary Care Provider: Da Ocampo Referrals: Da Ocampo MD [Primary Care Provider] - Disposition Disposition: Home, Self Care
[2021-02-17 17:01] VITALS: BP 132/67; PULSE 59; RESP 16; O2SAT 96
--- NOTE | 2021-02-17 17:30 | ED.RN ---
CALLED AND LEFT A MESSAGE FOR BOTH DAUGHTERS REQUESTED BY THE PT.
--- NOTE | 2021-02-17 18:43 | CM.ED ---
IRINA Note Referral Source: MD Referral Reason: Patient requested to speak to the family welfare social work professor. SW met with patient. She said that she has bladder problems and needs help changing the pads all day long. SW discussed Directions Home ([facility]) and their assessment, private pay provider and Medic alert information. Patient was provided these resources and then said that she will have her friend come and help her (also of note patient has 2 daughters that live locally). Patient told this proposal lead writer to take resources as she did not need them as she will get friend to help. Plan:Provided with resources but patient declined Zoila RANDLE
--- NOTE | 2021-02-17 18:43 | ED.RN ---
ATTEMPTED TO CALL BOTH DAUGHTERS AGAIN. BLAKE LEFT
[2021-02-17 19:03] VITALS: BP 124/76; PULSE 79; RESP 16; O2SAT 95
[2021-02-17 20:28] VITALS: RESP 20
== END 2021-02-17 20:29 | disposition home or self-care (01) ==
PROVIDERS: Emergency Provider Emergency Medicine; PCP Family Medicine
DX: S20.211A Contusion of right front wall of thorax, initial encounter (principal); S50.01XA Contusion of right elbow, initial encounter; W01.0XXA Fall on same level from slipping, tripping and stumbling without subsequent striking against object, initial encounter; Y93.89 Activity, other specified; Y92.009 Unspecified place in unspecified non-institutional (private) residence as the place of occurrence of the external cause; Y99.8 Other external cause status; I10 Essential (primary) hypertension; E11.9 Type 2 diabetes mellitus without complications; E03.9 Hypothyroidism, unspecified; F41.9 Anxiety disorder, unspecified; Z79.84 Long term (current) use of oral hypoglycemic drugs; Z79.82 Long term (current) use of aspirin; Z79.899 Other long term (current) drug therapy
CPT/HCPCS: 71101; 73080; 99284

== ENCOUNTER 2021-03-01 05:59 | Inpatient (IN) | payer MEDICARE, OTHER, SELFPAY ==
[2021-03-01] VITALS (12 sets, daily range): BP systolic 146–218; BP diastolic 51–95; PULSE 56–96; RESP 14–18; TEMP 36.3–37.1; O2SAT 81–100; BMI 28.5; BMI 25.7
--- NOTE | 2021-03-01 06:26 | CT_ITS ---
We are attempting to reach an attending provider to discuss findings. An addendum with communication details will be sent when the communication is complete. STUDY: CT ABDOMEN AND PELVIS WITH CONTRAST REASON FOR EXAM: Female, 85 years old. abd pain RADIATION DOSAGE (If Supplied By Facility): CTDIvol = ( 17.09 ) mGy, DLP = ( 981.97 ) mGycm TECHNIQUE: Transaxial images were obtained from the dome of the diaphragm to the symphysis pubis without oral contrast. IV 100mL Isovue-300 was administered. Sagittal and coronal images were reconstructed. Individualized dose optimization techniques were used for this CT. COMPARISON: September 22, 2020 CT abdomen and pelvis FINDINGS: The visualized lung bases are unremarkable. There are coronary calcifications Small low attenuation in the liver measuring 7.7 mm stable since prior study suggesting a lipoma. Normal gallbladder and extrahepatic biliary system. Normal spleen. There is diffuse atrophy of the pancreas. Normal bilateral adrenal glands. There is a superficial cyst right kidney measuring 5.7 mm. There is no hydronephrosis. There is a stone in the lower pole the right kidney measuring 2.7 mm. There is a small low attenuation which may represent angiomyolipoma or other cyst measuring 7.6 mm stable since prior study. The stomach is distended. There is wall thickening of the mid stomach. Image #36. There are distended loops of small bowel in the pelvis with a focal area of tortuosity and/or thickening in the right midline suggesting a early small bowel obstruction. There is moderate stool in the colon. The appendix is visualized and appears normal. Art is partially calcified. Normal inferior vena cava. Normal retroperitoneum. The bladder is distended. There is absence of the uterus consistent with a prior hysterectomy. Is midline scarring in the abdominal wall. There is degenerative change in the thoracolumbar spine with disc space narrowing and vacuum phenomenon and moderate neural foraminal narrowing moderate central stenosis at each level. CT/Abdomen/Pelvis W IV Cont ONLY IMPRESSION: Coronary artery calcification. Small bilateral renal cysts. Distended stomach focal area of wall thickening could consider gastritis. Could consider follow-up endoscopy Distended loop of small bowel within the left lower quadrant up to 3.4 cm is concerning for developing partial small bowel obstruction with the zone of transition in the left of midline where there may be a lesion or focal narrowing. Images over 42 coronal views. The distention is less than the prior study and the zone of transition was in a similar location with tortuosity in the midline. Degenerative changes of the thoracolumbar spine. Electronically Signed: Leena Christian MD at 7:48 EST Tel , Service support ,
--- NOTE | 2021-03-01 06:26 | EKG12_ITS ---
Test Reason : Blood Pressure : / mmHG Vent. Rate : 062 BPM Atrial Rate : 062 BPM P-R Int : 246 ms QRS Dur : 140 ms QT Int : 494 ms P-R-T Axes : 002 -40 063 degrees QTc Int : 501 ms Sinus rhythm with 1st degree A-V block Left axis deviation Left ventricular hypertrophy with QRS widening Abnormal ECG Confirmed by JOSE JUNG, ZAIRE ([id number]), medical transcription editor KRISTEL HILARIO ([id number]) on 03/02/2021 11:32:38 AM Referred By: MARISSA Confirmed By:ZAIRE GARCIA MD
[2021-03-01 06:33] LABS: Absolute Lymphocyte Count 1.35 X10^3/uL (0.83-4.51); Absolute Neutrophil Count 3.9 X10^3/uL (2.0-7.7); Basophil# 0.02 X10^3/uL; Basophil% 0.3 % (0-1); Eosinophil# 0.03 X10^3/uL; Eosinophils% 0.5 % (0-5); Hematocrit 39.6 % (37-47); Hemoglobin 13.1 g/dL (12.0-15.0); Lymphocyte # 1.35 X10^3/ul (0.83-4.51); Lymphocyte % 23.3 % (19-41); Mean Corp Hgb Conc 33.1 g/dL (32-36); Mean Corpuscular Volume 84.6 fL (81-99); Mean Platelet Vol. 9.5 fl (6.2-12.0); Monocyte# 0.47 X10^3/uL; Monocyte% 8.1 % (0-10); NRBC Flagged by Analyzer 0 % (0-5); Neutrophil # 3.91 X10^3/uL (2.7-7.7); Neutrophil % 67.5 % (47-70); Platelet Count 316 K/mm3 (150-450); RBC Distribution Width CV 12.6 % (11.6-14.6); RBC Distribution Width SD 38.9 fl (35.1-43.9); Red Blood Count 4.68 M/mm3 (4.2-5.4); White Blood Count 5.8 K/mm3 (4.4-11.0)
[2021-03-01] MEDS: Ondansetron 4 MG/2 ML Vial IV (06:34)
[2021-03-01] MEDS: Morphine 4 MG/ML Syringe IV (06:36)
[2021-03-01 06:50] LABS: AST(SGOT) 12 U/L (15-37); Alanine Aminotransfer ALT/SGPT 22 U/L (13-56); Albumin, Serum 3.7 g/dL (3.2-5.0); Alkaline Phosphatase 116 U/L (45-117); Anion Gap 11 (5-15); BUN 21 mg/dL (7-18); BUN/Creat Ratio 26.2 RATIO (10-20); Bilirubin, Direct 0.13 mg/dL (0.00-0.30); Calcium,Total 9.6 mg/dL (8.5-10.1); Chloride 102 mmol/L (98-107); EST Glomerular Filtration Rate 72 mL/min (>60); Est Glom Filt Rate - Afr Amer 87 mL/min (>60); Globulin 4.3 g/dL (2.2-4.2); Glucose 205 mg/dL (74-106); Lipase 150 U/L (73-393); Potassium 3.2 mmol/L (3.5-5.1); Sodium Level 139 mmol/L (136-145); Troponin-I HS 12 pg/mL (3.0-54.0)
--- NOTE | 2021-03-01 07:20 | RAD_ITS ---
STUDY: X-RAY - UNILATERAL RIBS ( RIGHT ) WITH CHEST REASON FOR EXAM: Female, 85 years old. Pain TECHNIQUE - RIBS: 5 view(s) of the ribs. TECHNIQUE - CHEST: March 01, 2021 COMPARISON: February 17, 2021 FINDINGS - RIBS: There are fractures of right rib right rib 567. FINDINGS - CHEST: There is no pneumothorax. There is minimal left lingular atelectasis. The lungs are clear and expanded. There is no demonstrated pleural abnormality. There is mild cardiac enlargement. Normal mediastinum and philippe. Normal visualized pulmonary arteries. Normal visualized aortic arch and descending thoracic aorta. There are diffuse degenerative changes of the visualized thoracic spine. Normal visualized ribs, clavicles, and shoulders. There is no demonstrated abnormality of the visualized soft tissue structures of the upper abdomen. RAD/Ribs Uni Min 3V w/PA Chest IMPRESSION: RIBS: Multilevel right-sided rib fractures. Degenerative change thoracic spine. No visualized pneumothorax. CHEST: Normal x-ray examination of the chest. Electronically Signed: Leena Christian MD at 7:51 EST Tel , Service support ,
--- NOTE | 2021-03-01 07:33 | ED.RN ---
THIS NURSE LEFT A MESSAGE FOR BOTH DAUGHTERS
--- NOTE | 2021-03-01 07:53 | ED.RN ---
spoke with daughter manasa, her informed her that her mother was here for abd pain and we are waiting on results.
--- NOTE | 2021-03-01 08:13 | EX.ED.DYSGE1 ---
HPI History of Present Illness Chief Complaint: Abd Pain Narrative Narrative: Patient is an 85-year-old female with past medical history of of partial small bowel obstruction necessitating surgery which was approximately 6 months ago. Patient had a mechanical fall at [facility] and had been complaining of pain in her right hip for which she was seen and had negative x-ray. She states that that pain slowly resolved but in the last few days she has noticed some abdominal discomfort with bouts of loose stool. She states she began on the brat diet but had worsening of pain and secondary to this comes in for evaluation. [facility] Medical History Anxiety Cancer Diabetes Heart murmur Hypertension Hypothyroidism Home Medications aspirin 81 mg PO DAILY@0800 12/10/13 [History Last Taken Unknown] hydrochlorothiazide 25 mg PO DAILY 12/10/13 [History Last Taken Unknown] levothyroxine [Levoxyl] 100 mcg PO DAILY 12/10/13 [History Last Taken 08/31/14 07:30] metformin 500 mg PO TIDCM 12/10/13 [History Last Taken Unknown] polyethylene glycol 3350 17 g PO DAILY PRN 12/10/13 [History Last Taken Unknown] PreserVision AREDS-2 1,000 mg PO DAILY 04/22/14 [History Last Taken Unknown] oxybutynin chloride [Ditropan XL] 10 mg PO DAILY 08/25/14 [History Last Taken Unknown] venlafaxine 75 mg PO BID 08/20/18 [History Last Taken Unknown] diphenhydramine HCl 12.5 mg PO Q6H PRN 11/09/18 [History Last Taken Unknown] mupirocin calcium 1 applic TOPICAL TID 11/09/18 [History Last Taken Unknown] ascorbic acid (vitamin C) 1,000 cap PO DAILY 09/19/20 [History Last Taken Unknown] erythromycin 1 applic RIGHT EYE QHS 09/19/20 [History Last Taken Unknown] neomycin-polymyxin B-dexameth 1 drp OPHTHALMIC (EYE) BID 09/20/20 [History Last Taken Unknown] potassium chloride 40 meq PO DAILY #30 tab 09/28/20 [Rx Last Taken Unknown] Allergy/AdvReac Type Severity Reaction Status Date / Time amoxicillin [From Augmentin] Allergy Itching Verified 03/01/21 06:08 cefdinir Allergy Rash Verified 03/01/21 06:08 ciprofloxacin [From Cipro] Allergy Swelling Verified 03/01/21 06:08 clavulanic acid Allergy Itching Verified 03/01/21 06:08 [From Augmentin] doxycycline calcium Allergy Unknown Verified 03/01/21 06:08 [From Vibramycin] doxycycline hyclate Allergy Unknown Verified 03/01/21 06:08 [From Vibramycin] doxycycline monohydrate Allergy Unknown Verified 03/01/21 06:08 [From Vibramycin] fluticasone Allergy Unknown Verified 03/01/21 06:08 influenza virus vaccine, Allergy Swelling Verified 03/01/21 06:08 specific [Influenza Virus Vacc,Specific] losartan Allergy Angioedema Verified 03/01/21 06:08 pneumococcal vaccine Allergy Rash Verified 03/01/21 06:08 [Pneumococcal Vaccine] promethazine HCl Allergy Unknown Verified 03/01/21 06:08 [From Phenergan] tetracycline [Tetracycline] Allergy Unknown Verified 03/01/21 06:08 cephalexin [From Keflex] AdvReac Rash Verified 03/01/21 06:08 metronidazole [From Flagyl] AdvReac Unknown Verified 03/01/21 06:08 sulfamethoxazole AdvReac Rash Verified 03/01/21 06:08 [From Bactrim] trimethoprim [From Bactrim] AdvReac Rash Verified 03/01/21 06:08 Surgical History History of cataract surgery History of exploratory laparotomy History of hysterectomy Hx of tonsillectomy Social History household members: none Smoking Status: Never smoker alcohol intake: current alcohol intake frequency: holidays/special occasions only substance use type: does not use ROS ROS ED Constitutional Constitutional ED: Denies chills or fever(s) ENT ENT ED: Denies sore throat Cardiovascular Cardiovascular: Denies chest pain Respiratory/Chest Respiratory/Chest: Denies cough or dyspnea Gastrointestinal Gastrointestinal: Reports abdominal pain and diarrhea; Denies nausea or vomiting Genitourinary Genitourinary ED: Denies dysuria Musculoskeletal Musculoskeletal: Denies myalgias Integumentary Denies rash Neurologic Neurologic: Denies headache(s) EXAM Physical Exam Const Vital Signs: 03/01/21 06:00 03/01/21 08:13 Temperature 97.3 F L Temperature Source Temporal Pulse Rate 65 Respiratory Rate 16 Blood Pressure 218/79 H Blood Pressure Mean 125 Pulse Ox 99 95 Oxygen Delivery Method Room Air Room Air Positive well nourished and well developed General Appearance ED: well developed HEENT Reports dry mucous membranes Mouth ED: Yes dry mucous membranes Mouth: dry mucous membranes Eyes PERRL and EOMs intact bilaterally Neck supple Chest Wall Chest Narrative: Patient has reproducible pain of the right anterior lateral chest wall without bony deformity or crepitance Resp normal respiratory effort and clear to auscultation bilaterally Cardio regular rate and regular rhythm Rate: other Other Details: Radial pulses are +2-4 bilaterally are equal and symmetric GI non-distended GI Narrative: Abdomen is soft and nondistended with hypoactive bowel sounds. There is mild diffuse pain with palpation without voluntary guarding or rigidity Palpation: soft Extremity normal to inspection Neuro oriented x3 and CN's II-XII intact bilaterally Sensorium / Orientation: alert Psych Psych Narrative: Patient has a nervous/anxious affect Skin no rashes or lesions noted Skin Narrative: Skin turgor is increased MDM MDM MDM Narrative Medical decision making narrative: Patient presented to the ER hypertensive but I felt this was related to anxiety and pain and otherwise she was afebrile. She does have a history of bowel obstruction and with her pain coming on without any type of trauma I did elect to perform a CT of her abdomen but also she had rib pain perform a chest x-ray as well as cardiac work-up. EKG was sinus rhythm chest x-ray revealed no rib fracture or pneumothorax and troponin was normal. The CT scan did show changes concerning for developing partial small bowel obstruction. Secondary to this I contacted general surgery. At this time they agree that because of her previous obstruction needing surgery and the fact that she is having abdominal pain with an abnormal CT read she should be watched in the hospital to see if this progresses. As she is not having overt vomiting I do not feel the need for an emergent NG tube. The patient does have multiple medical comorbidities such as diabetes hypertension hyperlipidemia and hypothyroidism and as the patient does not have an acute need to go to surgery based on this developing partial obstruction patient can be admitted to medicine service with general surgery on as consult. Lab Data Labs: Laboratory Results - last 24 hr 03/01/21 03/01/21 06:12 06:12 WBC 5.8 RBC 4.68 Hgb 13.1 Hct 39.6 MCV 84.6 MCH 28.0 MCHC 33.1 RDW Std Deviation 38.9 RDW Coeff of Marleni 12.6 Plt Count 316 MPV 9.5 Immature Gran % (Auto) 0.300 Neut % (Auto) 67.5 Lymph % (Auto) 23.3 [place] % (Auto) 8.1 Eos % (Auto) 0.5 Baso % (Auto) 0.3 Absolute Neuts (auto) 3.9 Absolute Lymphs (auto) 1.35 Nucleated RBC % 0 Sodium 139 Potassium 3.2 L Chloride 102 Carbon Dioxide 26.0 Anion Gap 11 BUN 21 H Creatinine 0.80 Estim Creat Clear Calc 43.30 Est GFR (MDRD) Af Amer 87 Est GFR (MDRD) Non-Af 72 BUN/Creatinine Ratio 26.2 H Glucose 205 H Calcium 9.6 Total Bilirubin 0.40 Direct Bilirubin 0.13 AST 12 L ALT 22 Alkaline Phosphatase 116 Troponin I High Sens 12 Total Protein 8.0 Albumin 3.7 Globulin 4.3 H Lipase 150 Radiography Diagnostic Testing: Clinical Impression(s) from Imaging Studies Abdomen/Pelvis CT 03/01/21 06:26 IMPRESSION: Coronary artery calcification. Small bilateral renal cysts. Distended stomach focal area of wall thickening could consider gastritis. Could consider follow-up endoscopy Distended loop of small bowel within the left lower quadrant up to 3.4 cm is concerning for developing partial small bowel obstruction with the zone of transition in the left of midline where there may be a lesion or focal narrowing. Images over 42 coronal views. The distention is less than the prior study and the zone of transition was in a similar location with tortuosity in the midline. Degenerative changes of the thoracolumbar spine. Electronically Signed: Leena Christian MD at 7:48 EST Tel , Service support , ADDENDUM: 03/01/21 7501 IMPRESSION: Coronary artery calcification. Small bilateral renal cysts. Distended stomach focal area of wall thickening could consider gastritis. Could consider follow-up endoscopy Distended loop of small bowel within the left lower quadrant up to 3.4 cm is concerning for developing partial small bowel obstruction with the zone of transition in the left of midline where there may be a lesion or focal narrowing. Images over 42 coronal views. The distention is less than the prior study and the zone of transition was in a similar location with tortuosity in the midline. Degenerative changes of the thoracolumbar spine. N.B. : The above Results were Read Back by Leena Christian MD to Dr. Lott [id number], and understanding confirmed on 03/01/2021 07:52:16 (ET). Electronically Signed: Leena Christian MD at 7:48 EST Tel , Service support , Ribs w/Chest X-Ray 03/01/21 07:20 IMPRESSION: RIBS: Multilevel right-sided rib fractures. Degenerative change thoracic spine. No visualized pneumothorax. CHEST: Normal x-ray examination of the chest. Electronically Signed: Leena Christian MD at 7:51 EST Tel , Service support , Discharge Plan Triage Chief Complaint: Abd Pain ED Provider: Medardo Lott Dx/Rx/DC Orders Clinical Impression: Partial small bowel obstruction Prescriptions: No Action aspirin 81 MG tablet,chewable 81 mg PO DAILY@0800 RF: 0 metformin 500 MG tablet 500 mg PO TIDCM RF: 0 polyethylene glycol 3350 17 GM powder in packet 17 g PO DAILY PRN (Reason: Constipation) RF: 0 levothyroxine [Levoxyl] 88 MCG tablet 100 mcg PO DAILY RF: 0 hydrochlorothiazide 25 MG tablet 25 mg PO DAILY RF: 0 PreserVision AREDS-2 1 EACH capsule 1,000 mg PO DAILY RF: 0 oxybutynin chloride [Ditropan XL] 10 MG tablet extended release 24hr 10 mg PO DAILY RF: 0 venlafaxine 75 MG tablet 75 mg PO BID RF: 0 mupirocin calcium 15 GM cream 1 applic topical TID RF: 0 diphenhydramine HCl 25 MG capsule 12.5 mg PO Q6H PRN (Reason: Itching & Insomnia) RF: 0 ascorbic acid (vitamin C) 1,000 mg Capsule, Extended Release 1,000 cap PO DAILY RF: 0 erythromycin 5 mg/gram (0.5 %) Ointment 1 applic RIGHT EYE QHS RF: 0 neomycin-polymyxin B-dexameth Drops,Suspension 1 drp OPHTHALMIC (EYE) BID RF: 0 potassium chloride 20 mEq tablet extended release 40 meq PO DAILY Qty: 30 RF: 0 Primary Care Provider: Da Ocampo Referrals: Da Ocampo MD [Primary Care Provider] - Disposition Disposition: Acute Care Hospital [facility]
--- NOTE | 2021-03-01 08:24 | NURSING ---
DR JEFFERY ANN
--- NOTE | 2021-03-01 09:43 | NURSING ---
MED SURG [facility]
[2021-03-01] MEDS: Morphine 2 MG/ML Syringe IV ×2 (11:52→21:56)
[2021-03-01] MEDS: 0.9% Saline Lock 10 ML Syringe IV ×3 (11:54→21:56)
[2021-03-01] MEDS: Lactated Ringers 1,000 ML 125 ML IV ×2 (12:54→20:36)
[2021-03-01 13:00] LABS: Bedside Glucose 190 mg/dL (70-110)
--- NOTE | 2021-03-01 16:16 | PCM.HP.STD ---
HPI - General General Date of Admission: 03/01/21 HPI Narrative ANGE LAZARO, is a 85 F who presents with abdominal pain. Had problems with diarrhea for about three days, but last bowel movement yesterday. has had nausea and emesis. CT scan in the ED revealed early small bowel obstruction. patient denies fevers. She is s/p small bowel resection for bowel obstruction in September of this year. [facility] Medical History Anxiety Cancer Diabetes Heart murmur Hypertension Hypothyroidism Home Medications aspirin 81 mg PO DAILY@0800 12/10/13 [History Last Taken Unknown] hydrochlorothiazide 25 mg PO DAILY 12/10/13 [History Last Taken Unknown] levothyroxine [Levoxyl] 100 mcg PO DAILY 12/10/13 [History Last Taken 08/31/14 07:30] metformin 500 mg PO TIDCM 12/10/13 [History Last Taken Unknown] polyethylene glycol 3350 17 g PO DAILY PRN 12/10/13 [History Last Taken Unknown] PreserVision AREDS-2 1,000 mg PO DAILY 04/22/14 [History Last Taken Unknown] oxybutynin chloride [Ditropan XL] 10 mg PO DAILY 08/25/14 [History Last Taken Unknown] venlafaxine 75 mg PO BID 08/20/18 [History Last Taken Unknown] diphenhydramine HCl 12.5 mg PO Q6H PRN 11/09/18 [History Last Taken Unknown] mupirocin calcium 1 applic TOPICAL TID 11/09/18 [History Last Taken Unknown] ascorbic acid (vitamin C) 1,000 cap PO DAILY 09/19/20 [History Last Taken Unknown] erythromycin 1 applic RIGHT EYE QHS 09/19/20 [History Last Taken Unknown] neomycin-polymyxin B-dexameth 1 drp OPHTHALMIC (EYE) BID 09/20/20 [History Last Taken Unknown] potassium chloride 40 meq PO DAILY #30 tab 09/28/20 [Rx Last Taken Unknown] Allergy/AdvReac Type Severity Reaction Status Date / Time amoxicillin [From Augmentin] Allergy Itching Verified 03/01/21 06:08 cefdinir Allergy Rash Verified 03/01/21 06:08 ciprofloxacin [From Cipro] Allergy Swelling Verified 03/01/21 06:08 clavulanic acid Allergy Itching Verified 03/01/21 06:08 [From Augmentin] doxycycline calcium Allergy Unknown Verified 03/01/21 06:08 [From Vibramycin] doxycycline hyclate Allergy Unknown Verified 03/01/21 06:08 [From Vibramycin] doxycycline monohydrate Allergy Unknown Verified 03/01/21 06:08 [From Vibramycin] fluticasone Allergy Unknown Verified 03/01/21 06:08 influenza virus vaccine, Allergy Swelling Verified 03/01/21 06:08 specific [Influenza Virus Vacc,Specific] losartan Allergy Angioedema Verified 03/01/21 06:08 pneumococcal vaccine Allergy Rash Verified 03/01/21 06:08 [Pneumococcal Vaccine] promethazine HCl Allergy Unknown Verified 03/01/21 06:08 [From Phenergan] tetracycline [Tetracycline] Allergy Unknown Verified 03/01/21 06:08 cephalexin [From Keflex] AdvReac Rash Verified 03/01/21 06:08 metronidazole [From Flagyl] AdvReac Unknown Verified 03/01/21 06:08 sulfamethoxazole AdvReac Rash Verified 03/01/21 06:08 [From Bactrim] trimethoprim [From Bactrim] AdvReac Rash Verified 03/01/21 06:08 Surgical History History of cataract surgery History of exploratory laparotomy History of hysterectomy Hx of tonsillectomy Social History household members: none Smoking Status: Never smoker alcohol intake: current alcohol intake frequency: holidays/special occasions only substance use type: does not use ROS ROS Narrative all reviewed, no changes, rib fractures from fall, has had some weight loss since last seen Vital Signs Vital Signs Vital Signs: 03/01/21 06:00 03/01/21 08:13 03/01/21 08:31 Temperature 97.3 F L Temperature Source Temporal Pulse Rate 65 Respiratory Rate 16 Blood Pressure 218/79 H Blood Pressure [BP] Blood Pressure Mean 125 Blood Pressure Mean [BP] Blood Pressure Source Blood Pressure Source [BP] Blood Pressure Position Blood Pressure Position [BP] Blood Pressure Location Blood Pressure Location [BP] Pulse Ox 99 95 82 Oxygen Delivery Method Room Air Room Air Room Air Oxygen Flow Rate (L/min) 03/01/21 08:43 03/01/21 09:50 03/01/21 10:17 Temperature 97.3 F L Temperature Source Temporal Pulse Rate 73 73 Respiratory Rate 14 14 Blood Pressure 146/63 H 146/63 H Blood Pressure [BP] Blood Pressure Mean 90 90 Blood Pressure Mean [BP] Blood Pressure Source Blood Pressure Source [BP] Blood Pressure Position Blood Pressure Position [BP] Blood Pressure Location Blood Pressure Location [BP] Pulse Ox 95 95 81 Oxygen Delivery Method Nasal Cannula Nasal Cannula Room Air Oxygen Flow Rate (L/min) 2 2 03/01/21 11:10 03/01/21 14:39 03/01/21 15:20 Temperature 98.7 F 98.2 F Temperature Source Temporal Temporal Pulse Rate 75 56 L Respiratory Rate 16 18 Blood Pressure 194/82 H 161/60 H Blood Pressure [BP] 149/95 H Blood Pressure Mean 119 93 Blood Pressure Mean [BP] 113 Blood Pressure Source Monitor Blood Pressure Source [BP] Monitor Blood Pressure Position Semi-Fowlers Blood Pressure Position [BP] Supine Blood Pressure Location Right Arm Blood Pressure Location [BP] Right Arm Pulse Ox 98 97 Oxygen Delivery Method Nasal Cannula Nasal Cannula Oxygen Flow Rate (L/min) 3 03/01/21 15:44 03/01/21 15:49 Temperature 97.5 F L Temperature Source Oral Pulse Rate 61 Respiratory Rate 16 Blood Pressure 146/62 H Blood Pressure [BP] Blood Pressure Mean 90 Blood Pressure Mean [BP] Blood Pressure Source Monitor Blood Pressure Source [BP] Blood Pressure Position Semi-Fowlers Blood Pressure Position [BP] Blood Pressure Location Left Arm Blood Pressure Location [BP] Pulse Ox 100 97 Oxygen Delivery Method Nasal Cannula Nasal Cannula Oxygen Flow Rate (L/min) 3 3 Weight Weight: 72.3 kg Body Mass Index (BMI) 25.7 Physical Exam Const no apparent distress Resp normal respiratory effort GI GI Narrative: abdomen is soft and benign tenderness only to deep palpation - no peritoneal signs noted healed midline incision rectal - soft stool in vault, no impaction noted Extremity no clubbing, cyanosis or edema Results Lab / Micro Data Result Diagrams: 03/01/21 06:12 03/01/21 06:12 Labs: Laboratory Results - last 24 hr 03/01/21 06:12: WBC 5.8, RBC 4.68, Hgb 13.1, Hct 39.6, MCV 84.6, MCH 28.0, MCHC 33.1, RDW Std Deviation 38.9, RDW Coeff of Marleni 12.6, Plt Count 316, MPV 9.5, Immature Gran % (Auto) 0.300, Neut % (Auto) 67.5, Lymph % (Auto) 23.3, [place] % (Auto) 8.1, Eos % (Auto) 0.5, Baso % (Auto) 0.3, Absolute Neuts (auto) 3.9, Absolute Lymphs (auto) 1.35, Nucleated RBC % 0 03/01/21 06:12: Sodium 139, Potassium 3.2 L, Chloride 102, Carbon Dioxide 26.0, Anion Gap 11, BUN 21 H, Creatinine 0.80, Estim Creat Clear Calc 43.30, Est GFR (MDRD) Af Amer 87, Est GFR (MDRD) Non-Af 72, BUN/Creatinine Ratio 26.2 H, Glucose 205 H, Calcium 9.6, Total Bilirubin 0.40, Direct Bilirubin 0.13, AST 12 L, ALT 22, Alkaline Phosphatase 116, Troponin I High Sens 12, Total Protein 8.0, Albumin 3.7, Globulin 4.3 H, Lipase 150 03/01/21 12:54: POC Glucose 190 H Micro: Microbiology 03/01/21 06:36 Nasal Secretion SARS-CoV-2 Antigen (Rapid) - Final Radiology Impression Abdomen/Pelvis CT 03/01/21 06:26 IMPRESSION: Coronary artery calcification. Small bilateral renal cysts. Distended stomach focal area of wall thickening could consider gastritis. Could consider follow-up endoscopy Distended loop of small bowel within the left lower quadrant up to 3.4 cm is concerning for developing partial small bowel obstruction with the zone of transition in the left of midline where there may be a lesion or focal narrowing. Images over 42 coronal views. The distention is less than the prior study and the zone of transition was in a similar location with tortuosity in the midline. Degenerative changes of the thoracolumbar spine. Electronically Signed: Leena Christian MD at 7:48 EST Tel , Service support , ADDENDUM: 03/01/21 [id number] IMPRESSION: Coronary artery calcification. Small bilateral renal cysts. Distended stomach focal area of wall thickening could consider gastritis. Could consider follow-up endoscopy Distended loop of small bowel within the left lower quadrant up to 3.4 cm is concerning for developing partial small bowel obstruction with the zone of transition in the left of midline where there may be a lesion or focal narrowing. Images over 42 coronal views. The distention is less than the prior study and the zone of transition was in a similar location with tortuosity in the midline. Degenerative changes of the thoracolumbar spine. N.B. : The above Results were Read Back by Leena Christian MD to Dr. Lott [id number], and understanding confirmed on 03/01/2021 07:52:16 (ET). Electronically Signed: Leena Christian MD at 7:48 EST Tel , Service support , Ribs w/Chest X-Ray 03/01/21 07:20 IMPRESSION: RIBS: Multilevel right-sided rib fractures. Degenerative change thoracic spine. No visualized pneumothorax. CHEST: Normal x-ray examination of the chest. Electronically Signed: Leena Christian MD at 7:51 EST Tel , Service support , Assessment & Plan Assessment/Plan (1) Partial small bowel obstruction: PLAN: patient initially refused NG tube, but I was able to convince her to have one, at least 500 ml of bilious clear fluid obtained, patient's abdomen greatly decompressed plan - IV hydration, NG tube decompression internal medicine consultation for medical management will await passage of flatus, then can d/c NG tube and start diet and then d/c to home
--- NOTE | 2021-03-01 16:33 | PN.HOSP_ITS ---
Subjective Subjective Mrs. Frey is an 85-year-old white female who presented to the emergency department on 03/01/2021 with a chief complaint of abdominal pain. About 6 months ago she underwent a partial small bowel resection with BRANNON for small bowel obstruction at that time and had been doing well up until the last few days. She evidently had a mechanical fall at [facility] for which she was seen in the emergency department and sent home but reports that her bowels have slowed since that point time. She states she initially had bouts of loose stool and she begin a brat diet but her pain worsened. She is not quite clear when her last bowel movement was. She denies passing flatus at this time and states when that stopped she became more concerned. She has noted no fever or chills, she had one episode of emesis prior to admission but had been relatively stable prior to that and since, no cough or shortness of breath, no melena or hematochezia or hematemesis. Her CT was consistent with a developing partial small bowel obstruction. Her vital signs were stable. Her CBC is unremarkable. Her BMP shows mild hypokalemia with a potassium of 3.2 and hyperglycemia with a blood glucose of 205. Her LFTs are within normal limits. She was admitted to general surgery with a consultation to medicine for medical management. Objective Data Objective Data Vital Signs: Vital Signs Temp Pulse Resp BP Pulse Ox 97.5 F L 61 16 146/62 H 97 03/01/21 15:44 03/01/21 15:44 03/01/21 15:44 03/01/21 15:44 03/01/21 15:49 Oxygen Flow Rate (L/min) 3 Oxygen Delivery Method Nasal Cannula Weight: 72.3 kg Body Mass Index (BMI) 25.7 Lab / Micro Data Result Diagrams: 03/01/21 06:12 03/01/21 06:12 Labs: Laboratory Results - last 24 hr 03/01/21 06:12: WBC 5.8, RBC 4.68, Hgb 13.1, Hct 39.6, MCV 84.6, MCH 28.0, MCHC 33.1, RDW Std Deviation 38.9, RDW Coeff of Marleni 12.6, Plt Count 316, MPV 9.5, Immature Gran % (Auto) 0.300, Neut % (Auto) 67.5, Lymph % (Auto) 23.3, [place] % (Auto) 8.1, Eos % (Auto) 0.5, Baso % (Auto) 0.3, Absolute Neuts (auto) 3.9, Absolute Lymphs (auto) 1.35, Nucleated RBC % 0 03/01/21 06:12: Sodium 139, Potassium 3.2 L, Chloride 102, Carbon Dioxide 26.0, Anion Gap 11, BUN 21 H, Creatinine 0.80, Estim Creat Clear Calc 43.30, Est GFR (MDRD) Af Amer 87, Est GFR (MDRD) Non-Af 72, BUN/Creatinine Ratio 26.2 H, Glucose 205 H, Calcium 9.6, Total Bilirubin 0.40, Direct Bilirubin 0.13, AST 12 L, ALT 22, Alkaline Phosphatase 116, Troponin I High Sens 12, Total Protein 8.0, Albumin 3.7, Globulin 4.3 H, Lipase 150 03/01/21 12:54: POC Glucose 190 H Micro: Microbiology 03/01/21 06:36 Nasal Secretion SARS-CoV-2 Antigen (Rapid) - Final Radiography Diagnostic Testing: Radiology Impression Abdomen/Pelvis CT 03/01/21 06:26 IMPRESSION: Coronary artery calcification. Small bilateral renal cysts. Distended stomach focal area of wall thickening could consider gastritis. Could consider follow-up endoscopy Distended loop of small bowel within the left lower quadrant up to 3.4 cm is concerning for developing partial small bowel obstruction with the zone of transition in the left of midline where there may be a lesion or focal narrowing. Images over 42 coronal views. The distention is less than the prior study and the zone of transition was in a similar location with tortuosity in the midline. Degenerative changes of the thoracolumbar spine. Electronically Signed: Leena Christian MD at 7:48 EST Tel , Service support , ADDENDUM: 03/01/21 0757 IMPRESSION: Coronary artery calcification. Small bilateral renal cysts. Distended stomach focal area of wall thickening could consider gastritis. Could consider follow-up endoscopy Distended loop of small bowel within the left lower quadrant up to 3.4 cm is concerning for developing partial small bowel obstruction with the zone of transition in the left of midline where there may be a lesion or focal narrowing. Images over 42 coronal views. The distention is less than the prior study and the zone of transition was in a similar location with tortuosity in the midline. Degenerative changes of the thoracolumbar spine. N.B. : The above Results were Read Back by Leena Christian MD to Dr. Lott [id number], and understanding confirmed on 03/01/2021 07:52:16 (ET). Electronically Signed: Leena Christian MD at 7:48 EST Tel , Service support , Ribs w/Chest X-Ray 03/01/21 07:20 IMPRESSION: RIBS: Multilevel right-sided rib fractures. Degenerative change thoracic spine. No visualized pneumothorax. CHEST: Normal x-ray examination of the chest. Electronically Signed: Leena Christian MD at 7:51 EST Tel , Service support , Physical Exam Const alert, oriented x3 and no apparent distress Constitutional Narrative: Elderly white female lying in bed, mild confusion but is oriented x3, patient did just receive some morphine, appears comfortable at this time as she was sleeping upon my arrival, nontoxic, pleasant Exam Limitations: no limitations HEENT head/scalp atraumatic and moist oral mucous membranes HEENT Narrative: Dentures in place, Mallampati 2, no thrush Head and Scalp: normocephalic Resp normal respiratory effort, no retractions, no use of accessory muscles and clear to auscultation bilaterally Auscultation: Negative for crackles, rales, rhonchi or wheezes Cardio regular rate, regular rhythm, S1 normal heart sound, S2 normal heart sound, no rub, no gallops, no clicks and no JVD; Negative for no murmurs Cardio Narrative: 2 out of 6 systolic murmur GI soft to palpation and non-distended GI Narrative: No distention, mild diffuse tenderness, bowel sounds are fairly hypoactive Extremity no clubbing, cyanosis or edema Extremity Narrative: Marked joint changes consistent with osteoarthritis diffusely Peripheral Pulses: Yes pulses 2+ throughout Neuro oriented x3, moves all extremities and no focal motor deficits Sensorium / Orientation: awake and alert Speech: speech normal Psych affect normal Assessment & Plan Assessment/Plan (1) Partial small bowel obstruction: (2) Hypokalemia: PLAN: Partial small bowel obstruction -CT of the abdomen and pelvis with IV contrast only showed distended stomach with a focal area of wall thickening and a distended loop of small bowel within the left lower quadrant up to 3.4 cm that was concerning for the developing of a partial small bowel obstruction with a zone of transition in the left of midline -Continue IV fluids -Gut rest -Management per general surgery Hypokalemia -IV replacement with 40 mEq -Repeat lab in a.m. -Check a.m. magnesium DM-2 -Hold home oral medications -Every 6 hours moderate dose SSI -Accu-Cheks every 6 while n.p.o. Hypertension -Hold home home hydrochlorothiazide -As needed labetalol for systolic blood pressure greater than 150 Hypothyroidism -Hold levothyroxine for now -If n.p.o. for greater than 7 days from last dose we will give an IV dose weekly -check TSH Urinary incontinence -Hold home oxybutynin Chronic ocular issues -Continue home medications Depression -Continue home Effexor DVT prophylaxis -Lovenox daily Charges/Coding Visit Charges Inpatient E&M: 68995 [facility] Hosp L2
--- NOTE | 2021-03-01 16:44 | RAD_ITS ---
EXAM: XR ABDOMEN, 1 VIEW CLINICAL INDICATION: NG tube placement TECHNIQUE: Frontal supine view of the abdomen/pelvis. This report was created using [employer] report generation technology. COMPARISON: None. FINDINGS: See Impression. RAD/Abdomen Single View IMPRESSION: 1. Transesophageal catheter has been placed in the interval with side-port below the GE junction and tip at the midportion of the stomach. 2. Lung bases are clear. 3. Degenerative changes of spine. 4. No other remarkable abnormalities. Electronically Signed: Medardo Zhao MD at 1:00 EST Tel , Service support ,
[2021-03-01] MEDS: Oxymetazoline 0.05% 1 SPRAY SPRAY.BTL 2 SPRAY NASAL (17:01)
[2021-03-01] MEDS: Lidocaine 4% 5 ML Ampul 2 ML INHALATION (17:01)
[2021-03-01 17:15] LABS: Bedside Glucose 192 mg/dL (70-110)
[2021-03-01] MEDS: Potassium Chloride 10mEq/100mL 10 MEQ/100 ML IV.SOLN. 100 MEQ IV BOLUS ×4 (17:54→21:45)
[2021-03-01] MEDS: Erythromycin Base 1 OPTH.TUBE 1 APPLIC RIGHT EYE (20:36)
[2021-03-01] MEDS: Neomycin/Polymyxin/Dexameth 5ML OPTH.BTL 1 DRP EACH EYE (20:36)
[2021-03-01] MEDS: Famotidine 200 MG/20 ML MDV 20 MG in 0.9% Normal Saline (Pres. free 8 ML 300 MG IV (20:37)
[2021-03-02] VITALS (8 sets, daily range): BP systolic 150–180; BP diastolic 52–72; PULSE 58–94; RESP 16–18; TEMP 36.6–37; O2SAT 94–100
[2021-03-02 00:30] LABS: Bedside Glucose 104 mg/dL (70-110)
[2021-03-02 00:58] LABS: Mucous, Urine 0 SEEN /hpf (<or=2+)
[2021-03-02 00:59] LABS: Color, Urine Yellow (Yellow); Glucose, Dipstick Normal (Normal); Ketone-Dipstick Negative (Negative); Leukocyte Esterase-Dipstick 500 /ul (Negative); Nitrite-Dipstick Positive (Negative); Occult Blood-Urine 25 /ul (Negative); Protein-Dipstick 30 mg/dl (Negative); Urine Bilirubin Dipstick Negative (Negative); Urine Clarity Clear (Clear); Urine Urobilinogen Normal (Normal)
[2021-03-02 01:06] LABS: Red Blood Cells-Urine 0-5 SEEN /hpf (0-5); White Blood Cells 25-50 SEEN /hpf (0-5)
[2021-03-02 01:07] LABS: Bacteria 3+ /hpf (None Seen); Squamous Epithelial Cells - UA 0-5 SEEN /hpf (5-10)
[2021-03-02] MEDS: Lactated Ringers 1,000 ML 125 ML IV (05:37)
[2021-03-02] MEDS: Morphine 2 MG/ML Syringe IV ×2 (05:41→23:21)
[2021-03-02 05:50] LABS: Bedside Glucose 116 mg/dL (70-110)
[2021-03-02 06:22] LABS: Absolute Lymphocyte Count 1.64 X10^3/uL (0.83-4.51); Absolute Neutrophil Count 6.2 X10^3/uL (2.0-7.7); Basophil# 0.03 X10^3/uL; Basophil% 0.3 % (0-1); Eosinophil# 0.19 X10^3/uL; Eosinophils% 2.1 % (0-5); Hematocrit 38.3 % (37-47); Hemoglobin 11.9 g/dL (12.0-15.0); Lymphocyte # 1.64 X10^3/ul (0.83-4.51); Lymphocyte % 18.3 % (19-41); Mean Corp Hgb Conc 31.1 g/dL (32-36); Mean Corpuscular Hgb 27.5 pg (27.0-32.0); Mean Corpuscular Volume 88.7 fL (81-99); Mean Platelet Vol. 9.5 fl (6.2-12.0); Monocyte# 0.86 X10^3/uL; Monocyte% 9.6 % (0-10); NRBC Flagged by Analyzer 0 % (0-5); Neutrophil # 6.22 X10^3/uL (2.7-7.7); Neutrophil % 69.4 % (47-70); Platelet Count 281 K/mm3 (150-450); RBC Distribution Width CV 12.9 % (11.6-14.6); RBC Distribution Width SD 42.3 fl (35.1-43.9); Red Blood Count 4.32 M/mm3 (4.2-5.4)
[2021-03-02 06:57] LABS: Anion Gap 5 (5-15); BUN 20 mg/dL (7-18); BUN/Creat Ratio 30.2 RATIO (10-20); Calcium,Total 9.2 mg/dL (8.5-10.1); Chloride 105 mmol/L (98-107); Creatinine, Serum 0.66 mg/dL (0.55-1.02); EST Glomerular Filtration Rate 90 mL/min (>60); Est Glom Filt Rate - Afr Amer 109 mL/min (>60); Glucose 127 mg/dL (74-106); Magnesium 1.8 mg/dL (1.6-2.6); Phosphorus 3.2 mg/dL (2.5-4.9); Potassium 3.6 mmol/L (3.5-5.1); Sodium Level 142 mmol/L (136-145); Thyroid Stim Hormone (TSH) 1.75 uIU/mL (0.358-3.74)
[2021-03-02] MEDS: Neomycin/Polymyxin/Dexameth 5ML OPTH.BTL 1 DRP EACH EYE ×2 (08:41→21:26)
--- NOTE | 2021-03-02 11:30 | PN.HOSP_ITS ---
Subjective Subjective Patient reports no abdominal pain at this time. Still having NG output. No flatus or bowel movement at this time. As noted from my consult she does wear a pad for urinary incontinence and her UA does look infected. She denies any dysuria at this time but also has not having significant urination and we have had to place a Mora. Patient does complain that her mouth is like thus [place]. Objective Data Objective Data Vital Signs: Vital Signs Temp Pulse Resp BP Pulse Ox 98.6 F 58 L 17 164/52 H 99 03/02/21 08:14 03/02/21 08:14 03/02/21 08:14 03/02/21 08:14 03/02/21 08:14 Oxygen Flow Rate (L/min) 2 Oxygen Delivery Method Room Air Weight: 72.3 kg Body Mass Index (BMI) 25.7 Intake & Output: Intake and Output for Last 24 Hours 02/28/21 03/01/21 03/02/21 23:59 23:59 23:59 Intake Total 1372.5 / 1372.5 1010 / 1010 Output Total 700 / 700 600 / 600 Balance 672.5 / 672.5 410 / 410 Lab / Micro Data Result Diagrams: 03/02/21 05:55 03/02/21 05:55 Labs: Laboratory Results - last 24 hr 03/01/21 12:54: POC Glucose 190 H 03/01/21 16:58: POC Glucose 192 H 03/02/21 00:23: POC Glucose 104 03/02/21 00:50: Urine Color Yellow, Urine Clarity Clear, Urine pH 6.0, Ur S pecific [place] 1.020, Urine Protein 30 H, Urine Glucose (UA) Normal, Urine K etones Negative, Urine Occult Blood 25 H, Urine Nitrite Positive H, Urine Bilirubin Negative, Urine Urobilinogen Normal, Ur Leukocyte Esterase 500 H, Urine RBC 0-5 SEEN, Urine WBC 25-50 SEEN, Ur Squamous Epith Cells 0-5 SEEN, Urine Bacteria 3+, Urine Mucus 0 SEEN 03/02/21 05:36: POC Glucose 116 H 03/02/21 05:55: WBC 9.0, RBC 4.32, Hgb 11.9 L, Hct 38.3, MCV 88.7, MCH 27.5, MCHC 31.1 L D, RDW Std Deviation 42.3, RDW Coeff of Marleni 12.9, Plt Count 281, MPV 9.5, Immature Gran % (Auto) 0.300, Neut % (Auto) 69.4, Lymph % (Auto) 18.3 L, [place] % (Auto) 9.6, Eos % (Auto) 2.1, Baso % (Auto) 0.3, Absolute Neuts (auto) 6.2, Absolute Lymphs (auto) 1.64, Nucleated RBC % 0 03/02/21 05:55: Sodium 142, Potassium 3.6, Chloride 105, Carbon Dioxide 32.0, Anion Gap 5, BUN 20 H, Creatinine 0.66, Estim Creat Clear Calc 39.20, Est GFR (MDRD) Af Amer 109, Est GFR (MDRD) Non-Af 90, BUN/Creatinine Ratio 30.2 H, Glucose 127 H, Calcium 9.2, Phosphorus 3.2, Magnesium 1.8, TSH 1.75 Micro: Microbiology 03/01/21 06:36 Nasal Secretion SARS-CoV-2 Antigen (Rapid) - Final Radiography Diagnostic Testing: Radiology Impression KUB X-Ray 03/01/21 16:44 IMPRESSION: 1. Transesophageal catheter has been placed in the interval with side-port below the GE junction and tip at the midportion of the stomach. 2. Lung bases are clear. 3. Degenerative changes of spine. 4. No other remarkable abnormalities. Electronically Signed: Medardo Zhao MD at 1:00 EST Tel , Service support , Physical Exam Const alert, oriented x3 and no apparent distress Constitutional Narrative: Elderly white female lying in bed, appears comfortable, nontoxic, nursing at bedside having just placed a Mora catheter Exam Limitations: no limitations HEENT head/scalp atraumatic HEENT Narrative: NG tube in place, mouth is dry Head and Scalp: normocephalic Resp normal respiratory effort, no retractions, no use of accessory muscles and clear to auscultation bilaterally Auscultation: Negative for crackles, rales, rhonchi or wheezes Cardio regular rate, regular rhythm, S1 normal heart sound, S2 normal heart sound, no rub, no gallops, no clicks and no JVD; Negative for no murmurs Cardio Narrative: 2 out of 6 systolic murmur GI soft to palpation, non-tender and non-distended GI Narrative: No distention, no tenderness, hypoactive bowel sounds Extremity no clubbing, cyanosis or edema Extremity Narrative: Marked joint changes consistent with osteoarthritis diffusely Neuro oriented x3, moves all extremities and no focal motor deficits Sensorium / Orientation: awake and alert Speech: speech normal Assessment & Plan Assessment/Plan (1) Partial small bowel obstruction: (2) Hypokalemia: PLAN: Partial small bowel obstruction -CT of the abdomen and pelvis with IV contrast only showed distended stomach with a focal area of wall thickening and a distended loop of small bowel within the left lower quadrant up to 3.4 cm that was concerning for the developing of a partial small bowel obstruction with a zone of transition in the left of midline -Continue IV fluids but will decrease the rate from 125 cc/h to 75 cc/h -Gut rest -Management per general surgery Suspected UTI -UA is very suggestive of infection -Patient denies any dysuria but has significant incontinence and has had bowel incontinence as well as of late -Patient with multiple antibiotic allergies but appears to only have itching with Augmentin--> will therefore start Unasyn at this time and follow cultures and sensitivities I am limited given her allergy list and her n.p.o. status -VICENTA Curtis ordered in case she develops itching with the penicillin -Await identification and sensitivities Hypokalemia -Resolved DM-2 -Hold home oral medications -Every 6 hours moderate dose SSI -Blood sugars appear well controlled at this time -Accu-Cheks every 6 while n.p.o. Hypertension -Hold home home hydrochlorothiazide -As needed labetalol for systolic blood pressure greater than 150 -May need to switch to hydralazine if heart rates are consistently below 60 Hypothyroidism -Hold levothyroxine for now -If n.p.o. for greater than 7 days from last dose we will give an IV dose weekly -TSH is WNL Urinary incontinence -Hold home oxybutynin -Mora has been placed at this time secondary to retention Chronic ocular issues -Continue home medications Depression -Continue home Effexor DVT prophylaxis -Lovenox daily Charges/Coding Visit Charges Inpatient E&M: 06377 Subs Hosp L2
--- NOTE | 2021-03-02 11:45 | CASEMGMT ---
RN CYNTHIA DOG DAY CARE ATTENDANT CM to room to meet with patient for initial transition planning/care coordination assessment. RN CYNTHIA introduced self and role at [facility]. Pt voices understanding and consents to assessment at this time. Pt resting in bed in no distress at this time. Pt is A/O at this time and answers all questions appropriately. Care providers, pharmacy, and demographics verified/updated at this time. PCP: Dr Ocampo Specialists: Dr Batista--Gynecology [facility] Prescription Benefit: Yes LNOK: 2 daughters: Raúl Living Arrangements: Lives alone in one-story home w/4 steps to enter. Poor vision. Independent w/ADL's. Dtrs get groceries for pt and go to appts w/her. Pt states she is able to manage home tasks. Transportation: Family DME: States has the following DME: Built-in shower seat, walker, medical alert button, glucometer Pt states no need for further DME at this time. HHC/SNF: Has been to [facility] in the past. Pt states prefers to return home, if able, but states, I'm pretty weak. I'm not sure what's going to happen--If I'm going to be able to go home. PLAN: TBD by course of treatment and progress w/therapy. PT/OT evals pending. Jameson JIMENEZ RN, CM
[2021-03-02] MEDS: Famotidine 200 MG/20 ML MDV 20 MG in 0.9% Normal Saline (Pres. free 8 ML 300 MG IV ×2 (11:50→21:26)
[2021-03-02] MEDS: Menthol/Lanolin/Calamine/Znox 113 GM Tube 1 APPLIC TOPICAL ×2 (11:50→21:27)
[2021-03-02] MEDS: 0.9% Normal Saline 1,000 ML 125 ML IV ×2 (12:16→21:26)
[2021-03-02 13:10] LABS: Bedside Glucose 99 mg/dL (70-110)
--- NOTE | 2021-03-02 14:03 | CHAPLAIN ---
Type of Pastoral Visit _x__ Initial Visit ___ Follow-up Visit ___ On-call Visit ___ General Patient Visit ___ Spiritual Assessment ___ Family Conference ___ Bereavement ___ Rapid Response ___ Code Blue ___ Other (describe below) Pastoral Care Referral From _x__ Patient ___ Family ___ Nurse ___ Physician ___ Coal Sampler ___ Shop Director ___ Other (describe below) Sacrament/Intervention ___ Active listening ___ Anointing ___ Denominational ___ Bereavement ___ Communion ___ Angeline exploration ___ ___ Life review ___ Prayer ___ Reconciliation ___ Sacrament of Sick ___ Supportive presence ___ Wedding _x__ Other (describe below) Pastoral Comments patient was sound asleep and did not awaken at entrance into room by this toolmaker; calling card with note was left for pt
--- NOTE | 2021-03-02 14:14 | PN.SURG_ITS ---
Subjective Subjective patient denies passage of flatus, but denies abdominal pain Objective Data Objective Data Vital Signs: Vital Signs Temp Pulse Resp BP Pulse Ox 98.6 F 58 L 17 164/52 H 99 03/02/21 08:14 03/02/21 08:14 03/02/21 08:14 03/02/21 08:14 03/02/21 08:14 Oxygen Flow Rate (L/min) 2 Oxygen Delivery Method Room Air Weight: 72.3 kg Body Mass Index (BMI) 25.7 Intake & Output: Intake and Output for Last 24 Hours 02/28/21 03/01/21 03/02/21 23:59 23:59 23:59 Intake Total 1372.5 / 1372.5 1851.25 / 1851.25 Output Total 700 / 700 600 / 600 Balance 672.5 / 672.5 1251.25 / 1251.25 Lab / Micro Data Result Diagrams: 03/02/21 05:55 03/02/21 05:55 Labs: Laboratory Results - last 24 hr 03/01/21 16:58: POC Glucose 192 H 03/02/21 00:23: POC Glucose 104 03/02/21 00:50: Urine Color Yellow, Urine Clarity Clear, Urine pH 6.0, Ur Specific [place] 1.020, Urine Protein 30 H, Urine Glucose (UA) Normal, Urine Ketones Negative, Urine Occult Blood 25 H, Urine Nitrite Positive H, Urine Bilirubin Negative, Urine Urobilinogen Normal, Ur Leukocyte Esterase 500 H, Urine RBC 0-5 SEEN, Urine WBC 25-50 SEEN, Ur Squamous Epith Cells 0-5 SEEN, Urine Bacteria 3+, Urine Mucus 0 SEEN 03/02/21 05:36: POC Glucose 116 H 03/02/21 05:55: WBC 9.0, RBC 4.32, Hgb 11.9 L, Hct 38.3, MCV 88.7, MCH 27.5, MCHC 31.1 L D, RDW Std Deviation 42.3, RDW Coeff of Marleni 12.9, Plt Count 281, MPV 9.5, Immature Gran % (Auto) 0.300, Neut % (Auto) 69.4, Lymph % (Auto) 18.3 L, [place] % (Auto) 9.6, Eos % (Auto) 2.1, Baso % (Auto) 0.3, Absolute Neuts (auto) 6.2, Absolute Lymphs (auto) 1.64, Nucleated RBC % 0 03/02/21 05:55: Sodium 142, Potassium 3.6, Chloride 105, Carbon Dioxide 32.0, Anion Gap 5, BUN 20 H, Creatinine 0.66, Estim Creat Clear Calc 39.20, Est GFR (MDRD) Af Amer 109, Est GFR (MDRD) Non-Af 90, BUN/Creatinine Ratio 30.2 H, Glucose 127 H, Calcium 9.2, Phosphorus 3.2, Magnesium 1.8, TSH 1.75 03/02/21 13:06: POC Glucose 99 Micro: Microbiology 03/01/21 06:36 Nasal Secretion SARS-CoV-2 Antigen (Rapid) - Final Radiography Diagnostic Testing: Radiology Impression KUB X-Ray 03/01/21 16:44 IMPRESSION: 1. Transesophageal catheter has been placed in the interval with side-port below the GE junction and tip at the midportion of the stomach. 2. Lung bases are clear. 3. Degenerative changes of spine. 4. No other remarkable abnormalities. Electronically Signed: Medardo Zhao MD at 1:00 EST Tel , Service support , Physical Exam Const alert and oriented x3 General Appearance: cooperative HEENT normocephalic Neck supple Resp normal respiratory effort Effort and Inspection: able to speak in complete sentences GI GI Narrative: abdomen is soft and benign, tenderness to deep palpation only in periumbilical to left UQ area rectal - soft stool and air in vault Assessment & Plan Assessment/Plan (1) Partial small bowel obstruction: PLAN: patient denies abdominal pain today, has not passed flatus, however, she does note rumblings found to have UTI continue present therapy, I suspect that this should resolve
[2021-03-02] MEDS: Labetalol (Prefilled) 20 MG/4 ML IV ×2 (15:58→21:44)
[2021-03-02 18:55] LABS: Bedside Glucose 117 mg/dL (70-110)
--- NOTE | 2021-03-02 19:14 | PCS.PANDOC ---
PANDEMIC DOCUMENTATION INITIATED: Date: 11/07/2020 Time: 190
[2021-03-02] MEDS: Erythromycin Base 1 OPTH.TUBE 1 APPLIC RIGHT EYE (21:27)
[2021-03-02 23:30] LABS: Bedside Glucose 128 mg/dL (70-110)
[2021-03-03] VITALS (15 sets, daily range): BP systolic 139–205; BP diastolic 51–79; PULSE 57–70; RESP 16–18; TEMP 36.6–37.1; O2SAT 95–99
[2021-03-03] MEDS: Labetalol (Prefilled) 20 MG/4 ML IV ×3 (05:42→21:46)
[2021-03-03] MEDS: Morphine 2 MG/ML Syringe IV (05:53)
[2021-03-03 06:00] LABS: Bedside Glucose 127 mg/dL (70-110)
[2021-03-03 07:12] LABS: Absolute Lymphocyte Count 1.17 X10^3/uL (0.83-4.51); Absolute Neutrophil Count 4.6 X10^3/uL (2.0-7.7); Basophil# 0.02 X10^3/uL; Basophil% 0.3 % (0-1); Eosinophil# 0.07 X10^3/uL; Eosinophils% 1.1 % (0-5); Hematocrit 36.2 % (37-47); Hemoglobin 11.3 g/dL (12.0-15.0); Lymphocyte # 1.17 X10^3/ul (0.83-4.51); Lymphocyte % 18.3 % (19-41); Mean Corp Hgb Conc 31.2 g/dL (32-36); Mean Corpuscular Hgb 27.6 pg (27.0-32.0); Mean Corpuscular Volume 88.3 fL (81-99); Mean Platelet Vol. 9.5 fl (6.2-12.0); Monocyte# 0.56 X10^3/uL; Monocyte% 8.8 % (0-10); NRBC Flagged by Analyzer 0 % (0-5); Neutrophil # 4.55 X10^3/uL (2.7-7.7); Neutrophil % 71.2 % (47-70); Platelet Count 254 K/mm3 (150-450); RBC Distribution Width CV 12.9 % (11.6-14.6); White Blood Count 6.4 K/mm3 (4.4-11.0)
[2021-03-03 07:51] LABS: Anion Gap 8 (5-15); BUN 14 mg/dL (7-18); BUN/Creat Ratio 25.4 RATIO (10-20); Calcium,Total 8.7 mg/dL (8.5-10.1); Chloride 106 mmol/L (98-107); Creatinine, Serum 0.55 mg/dL (0.55-1.02); EST Glomerular Filtration Rate 111 mL/min (>60); Est Glom Filt Rate - Afr Amer 135 mL/min (>60); Glucose 134 mg/dL (74-106); Potassium 3.4 mmol/L (3.5-5.1); Sodium Level 140 mmol/L (136-145)
--- NOTE | 2021-03-03 07:57 | PCM.PN.SRG ---
Subjective Subjective patient denies abdominal pain this morning has not passed flatus Objective Data Objective Data Vital Signs: Vital Signs Temp Pulse Resp BP Pulse Ox 98.7 F 62 16 169/62 H 97 03/03/21 07:45 03/03/21 07:45 03/03/21 07:45 03/03/21 07:45 03/03/21 07:45 Oxygen Flow Rate (L/min) 2 Oxygen Delivery Method Room Air Weight: 72.3 kg Body Mass Index (BMI) 25.7 Intake & Output: Intake and Output for Last 24 Hours 03/01/21 03/02/21 03/03/21 23:59 23:59 23:59 Intake Total 1372.5 / 1372.5 3115.25 / 3115.25 264 / 264 Output Total 700 / 700 1665 / 1665 550 / 550 Balance 672.5 / 672.5 1450.25 / 1450.25 -286 / -286 Lab / Micro Data Result Diagrams: 03/03/21 06:10 03/03/21 06:10 Labs: Laboratory Results - last 24 hr 03/02/21 13:06: POC Glucose 99 03/02/21 18:39: POC Glucose 117 H 03/02/21 23:25: POC Glucose 128 H 03/03/21 05:31: POC Glucose 127 H 03/03/21 06:10: WBC 6.4, RBC 4.10 L, Hgb 11.3 L, Hct 36.2 L, MCV 88.3, MCH 27.6, MCHC 31.2 L, RDW Std Deviation 42.0, RDW Coeff of Marleni 12.9, Plt Count 254, MPV 9.5, Immature Gran % (Auto) 0.300, Neut % (Auto) 71.2 H, Lymph % (Auto) 18.3 L, [place] % (Auto) 8.8, Eos % (Auto) 1.1, Baso % (Auto) 0.3, Absolute Neuts (auto) 4.6, Absolute Lymphs (auto) 1.17, Nucleated RBC % 0 03/03/21 06:10: Sodium 140, Potassium 3.4 L, Chloride 106, Carbon Dioxide 26.0, Anion Gap 8, BUN 14, Creatinine 0.55, Estim Creat Clear Calc 39.20, Est GFR (MDRD) Af Amer 135, Est GFR (MDRD) Non-Af 111, BUN/Creatinine Ratio 25.4 H, Glucose 134 H, Calcium 8.7 Micro: Microbiology 03/01/21 06:36 Nasal Secretion SARS-CoV-2 Antigen (Rapid) - Final Physical Exam Const alert and oriented x3 General Appearance: cooperative and comfortable Neck supple Resp normal respiratory effort Effort and Inspection: able to speak in complete sentences GI GI Narrative: abdomen is soft, only tender to palpation with pressing deeply into the periumbilical area no peritoneal signs, not distended Assessment & Plan Assessment/Plan (1) Partial small bowel obstruction: PLAN: Continue present therapy, patient slow response to surgery probably due to age and non ambulatory status
[2021-03-03] MEDS: 0.9% Normal Saline 1,000 ML 125 ML IV (08:40)
[2021-03-03] MEDS: 0.9% Saline Lock 10 ML Syringe IV ×4 (09:12→21:47)
[2021-03-03] MEDS: LORazepam 2 MG/ML Syringe 0.5 MG IV (09:12)
[2021-03-03] MEDS: Menthol/Lanolin/Calamine/Znox 113 GM Tube 1 APPLIC TOPICAL ×2 (10:06→21:32)
[2021-03-03] MEDS: Neomycin/Polymyxin/Dexameth 5ML OPTH.BTL 1 DRP EACH EYE ×2 (10:06→21:38)
[2021-03-03] MEDS: Famotidine 200 MG/20 ML MDV 20 MG in 0.9% Normal Saline (Pres. free 8 ML 300 MG IV (10:06)
--- NOTE | 2021-03-03 14:10 | PN.HOSP_ITS ---
Subjective Subjective Patient reporting some anxiety. Is asking if she can use morphine for that and not for pain. We discussed that we will start some low-dose Ativan IV push to see if this helps with her anxiety. Still no flatus or bowel movement. Objective Data Objective Data Vital Signs: Vital Signs Temp Pulse Resp BP Pulse Ox 98.7 F 59 L 16 169/62 H 95 03/03/21 07:45 03/03/21 11:00 03/03/21 07:45 03/03/21 07:45 03/03/21 09:37 Oxygen Flow Rate (L/min) 2 Oxygen Delivery Method Room Air Weight: 72.3 kg Body Mass Index (BMI) 25.7 Intake & Output: Intake and Output for Last 24 Hours 03/01/21 03/02/21 03/03/21 23:59 23:59 23:59 Intake Total 1372.5 / 1372.5 3115.25 / 3115.25 1294 / 1294 Output Total 700 / 700 1665 / 1665 975 / 975 Balance 672.5 / 672.5 1450.25 / 1450.25 319 / 319 Lab / Micro Data Result Diagrams: 03/03/21 06:10 03/03/21 06:10 Labs: Laboratory Results - last 24 hr 03/02/21 18:39: POC Glucose 117 H 03/02/21 23:25: POC Glucose 128 H 03/03/21 05:31: POC Glucose 127 H 03/03/21 06:10: WBC 6.4, RBC 4.10 L, Hgb 11.3 L, Hct 36.2 L, MCV 88.3, MCH 27.6, MCHC 31.2 L, RDW Std Deviation 42.0, RDW Coeff of Marleni 12.9, Plt Count 254, MPV 9.5, Immature Gran % (Auto) 0.300, Neut % (Auto) 71.2 H, Lymph % (Auto) 18.3 L, Sierra % (Auto) 8.8, Eos % (Auto) 1.1, Baso % (Auto) 0.3, Absolute Neuts (auto) 4.6, Absolute Lymphs (auto) 1.17, Nucleated RBC % 0 03/03/21 06:10: Sodium 140, Potassium 3.4 L, Chloride 106, Carbon Dioxide 26.0, Anion Gap 8, BUN 14, Creatinine 0.55, Estim Creat Clear Calc 39.20, Est GFR (MDRD) Af Amer 135, Est GFR (MDRD) Non-Af 111, BUN/Creatinine Ratio 25.4 H, Glucose 134 H, Calcium 8.7 Micro: Microbiology 03/02/21 00:50 Urine Catheter - Catheter Urine Culture - Preliminary GNR lactose staff services manager 03/01/21 06:36 Nasal Secretion SARS-CoV-2 Antigen (Rapid) - Final Physical Exam Const alert, oriented x3 and no apparent distress Constitutional Narrative: Elderly white female lying in bed, appears comf ortable, nontoxic, nursing at bedside, patient seems mildly anxious Exam Limitations: no limitations HEENT head/scalp atraumatic HEENT Narrative: Mouth is markedly dry Head and Scalp: normocephalic Resp normal respiratory effort, no retractions, no use of accessory muscles and clear to auscultation bilaterally Auscultation: Negative for crackles, rales, rhonchi or wheezes Cardio regular rate, regular rhythm, S1 normal heart sound, S2 normal heart sound, no rub, no gallops, no clicks and no JVD; Negative for no murmurs Cardio Narrative: 2 out of 6 systolic murmur GI soft to palpation, non-tender and non-distended GI Narrative: No distention, no tenderness, hypoactive bowel sounds Extremity no clubbing, cyanosis or edema Extremity Narrative: Marked joint changes consistent with osteoarthritis diffusely Peripheral Pulses: Yes pulses 2+ throughout Neuro oriented x3, moves all extremities and no focal motor deficits Sensorium / Orientation: awake and alert Assessment & Plan Assessment/Plan (1) Partial small bowel obstruction: (2) Hypokalemia: PLAN: Partial small bowel obstruction -CT of the abdomen and pelvis with IV contrast only showed distended stomach with a focal area of wall thickening and a distended loop of small bowel within the left lower quadrant up to 3.4 cm that was concerning for the developing of a partial small bowel obstruction with a zone of transition in the left of midline -Continue IV fluids but will decrease the rate from 125 cc/h to 75 cc/h -Gut rest -Management per general surgery Gram-negative acute UTI -Gram stain shows gram-negative tyson lactose staff services manager at greater than 100,000 CFU per mL -Continue IV antibiotics with Unasyn at this time given her multiple allergies -As needed Benadryl for itching as she has itching with penicillins -Await identification and sensitivities Hypokalemia -IV potassium replacement -Repeat lab in a.m. DM-2 -Hold home oral medications -Every 6 hours moderate dose SSI -Blood sugars appear well controlled at this time--> blood sugar 134 this a.m. -Accu-Cheks every 6 while n.p.o. Hypertension -Hold home home hydrochlorothiazide -As needed labetalol for systolic blood pressure greater than 150 -May need to switch to hydralazine if heart rates are consistently below 60 Hypothyroidism -Hold levothyroxine for now -If n.p.o. for greater than 7 days from last dose we will give an IV dose weekly -TSH is WNL Urinary incontinence -Hold home oxybutynin -Mora has been placed at this time secondary to retention Chronic ocular issues -Continue home medications Depression -Continue home Effexor DVT prophylaxis -Lovenox daily Charges/Coding Visit Charges Inpatient E&M: 21840 Subs Hosp L2
[2021-03-03 14:31] LABS: Bedside Glucose 126 mg/dL (70-110)
--- NOTE | 2021-03-03 14:34 | NURSING ---
Trandate not in accudose or in pts drawer. This nurse called Pharmacy and asked to send it up stat as bp high.
[2021-03-03] MEDS: Potassium Chloride 10mEq/100mL 10 MEQ/100 ML IV.SOLN. 100 MEQ IV BOLUS (14:50)
[2021-03-03] MEDS: Potassium Chloride 10mEq/100mL 10 MEQ/100 ML IV.SOLN. 90 MEQ IV BOLUS ×3 (15:51→18:30)
[2021-03-03 19:05] LABS: Bedside Glucose 103 mg/dL (70-110)
[2021-03-03] MEDS: 0.9% Normal Saline 1,000 ML 75 ML IV (20:04)
[2021-03-03] MEDS: Erythromycin Base 1 OPTH.TUBE 1 APPLIC RIGHT EYE (21:39)
[2021-03-03] MEDS: Famotidine 200 MG/20 ML MDV 20 MG in 0.9% Normal Saline (Pres. free 8 ML IV (21:40)
[2021-03-04] VITALS (14 sets, daily range): BP systolic 155–189; BP diastolic 56–82; PULSE 60–67; RESP 18; TEMP 36.4–36.9; O2SAT 97–100
[2021-03-04 02:56] LABS: Bedside Glucose 100 mg/dL (70-110)
[2021-03-04] MEDS: LORazepam 2 MG/ML Syringe 0.5 MG IV (03:52)
--- NOTE | 2021-03-04 04:31 | NURSING ---
pt reports passing gas
[2021-03-04 06:01] LABS: Bedside Glucose 105 mg/dL (70-110)
[2021-03-04 08:12] LABS: Anion Gap 9 (5-15); BUN 13 mg/dL (7-18); BUN/Creat Ratio 25.7 RATIO (10-20); Calcium,Total 8.7 mg/dL (8.5-10.1); Chloride 105 mmol/L (98-107); EST Glomerular Filtration Rate 123 mL/min (>60); Est Glom Filt Rate - Afr Amer 149 mL/min (>60); Glucose 93 mg/dL (74-106); Potassium 3.7 mmol/L (3.5-5.1); Sodium Level 140 mmol/L (136-145)
[2021-03-04] MEDS: Menthol/Lanolin/Calamine/Znox 113 GM Tube 1 APPLIC TOPICAL ×2 (08:46→22:49)
[2021-03-04] MEDS: Labetalol (Prefilled) 20 MG/4 ML IV ×2 (08:46→13:40)
[2021-03-04] MEDS: Neomycin/Polymyxin/Dexameth 5ML OPTH.BTL 1 DRP EACH EYE ×2 (08:47→22:51)
[2021-03-04] MEDS: Famotidine 200 MG/20 ML MDV 20 MG in 0.9% Normal Saline (Pres. free 8 ML IV ×2 (08:47→22:46)
--- NOTE | 2021-03-04 10:31 | PCM.PN.SRG ---
Subjective Subjective No flatus or bowel movements Objective Data Objective Data Abdomen is soft no rebound guarding or peritoneal signs are identified Vital Signs: Vital Signs Temp Pulse Resp BP Pulse Ox 97.5 F L 66 18 176/75 H 98 03/04/21 08:26 03/04/21 08:26 03/04/21 08:26 03/04/21 08:26 03/04/21 09:59 Oxygen Flow Rate (L/min) 2 Oxygen Delivery Method Room Air Weight: 159 lb 6.307 oz Body Mass Index (BMI) 25.7 Intake & Output: Intake and Output for Last 24 Hours 03/02/21 03/03/21 03/04/21 23:59 23:59 23:59 Intake Total 3115.25 / 3115.25 2951.75 / 2951.75 867.75 / 867.75 Output Total 1665 / 1665 1625 / 1625 300 / 300 Balance 1450.25 / 1450.25 1326.75 / 1326.75 567.75 / 567.75 Lab / Micro Data Result Diagrams: 03/03/21 06:10 03/04/21 06:55 Labs: Laboratory Results - last 24 hr 03/03/21 14:05: POC Glucose 126 H 03/03/21 18:56: POC Glucose 103 03/04/21 01:07: POC Glucose 100 03/04/21 05:52: POC Glucose 105 03/04/21 06:55: Sodium 140, Potassium 3.7, Chloride 105, Carbon Dioxide 26.0, Anion Gap 9, BUN 13, Creatinine 0.50 L, Estim Creat Clear Calc 39.20, Est GFR (MDRD) Af Amer 149, Est GFR (MDRD) Non-Af 123, BUN/Creatinine Ratio 25.7 H, Glucose 93, Calcium 8.7 Micro: Microbiology 03/02/21 00:50 Urine Catheter - Catheter Urine Culture - Final Escherichia coli 03/01/21 06:36 Nasal Secretion SARS-CoV-2 Antigen (Rapid) - Final Assessment & Plan Assessment/Plan (1) Partial small bowel obstruction: PLAN: We will add gum to her regimen to see if this is helpful. Once we see GI function we will be able to get rid of NG tube
[2021-03-04] MEDS: Morphine 2 MG/ML Syringe IV (12:25)
[2021-03-04 13:41] LABS: Bedside Glucose 94 mg/dL (70-110)
[2021-03-04] MEDS: 0.9% Normal Saline 1,000 ML 75 ML IV (13:41)
--- NOTE | 2021-03-04 15:03 | NURSING ---
qa lead called as pt went unresponsive per ddddaughter while she was in the room talking with pt- and this rn had just left her room- was able to wake- vs and blood sugar wnl pt after a few minutes pt was awake - no meds given and pt remains on ra daughter was removing pt's rings and had rubbed her back and then showed pt a a picture and pt was laughing right before becoming unresponsive no new orders from pt visiting with daughter again as this rn left the room
[2021-03-04 15:20] LABS: Bedside Glucose 94 mg/dL (70-110)
[2021-03-04] MEDS: Metoclopramide 10 MG/2 ML Vial 2.5 MG IV (17:59)
[2021-03-04] MEDS: Enalaprilat 1.25 MG/ML Vial IV (18:00)
[2021-03-04 18:01] LABS: Bedside Glucose 84 mg/dL (70-110)
--- NOTE | 2021-03-04 18:15 | PN.HOSP_ITS ---
Subjective Subjective Patient was seen and examined today, she had a brief episode where she passed out while laughing today, her daughter was showing her picture and she passed out for approximately 5 minutes. Patient woke up without incident, there is no evidence of any seizure activity. I think the patient probably had a vasovagal episode. I talked briefly with general surgery today and they felt it was permissible to give the patient IV Reglan to see if this would help with her partial small bowel obstruction. I asked the daughter briefly about the patient's CODE STATUS, she was unsure whether the patient would want resusc itated, I did not want to bring this up to the patient at the present time. Objective Data Objective Data Vital Signs: Vital Signs Temp Pulse Resp BP Pulse Ox 97.7 F L 60 18 178/78 H 100 03/04/21 17:38 03/04/21 17:38 03/04/21 17:38 03/04/21 17:38 03/04/21 17:38 Oxygen Flow Rate (L/min) 2 Oxygen Delivery Method Room Air Weight: 72.3 kg Body Mass Index (BMI) 25.7 Intake & Output: Intake and Output for Last 24 Hours 03/02/21 03/03/21 03/04/21 23:59 23:59 23:59 Intake Total 3115.25 / 3115.25 2951.75 / 2951.75 1392.25 / 1392.25 Output Total 1665 / 1665 1625 / 1625 1250 / 1250 Balance 1450.25 / 1450.25 1326.75 / 1326.75 142.25 / 142.25 Lab / Micro Data Result Diagrams: 03/03/21 06:10 03/04/21 06:55 Labs: Laboratory Results - last 24 hr 03/03/21 18:56: POC Glucose 103 03/04/21 01:07: POC Glucose 100 03/04/21 05:52: POC Glucose 105 03/04/21 06:55: Sodium 140, Potassium 3.7, Chloride 105, Carbon Dioxide 26.0, Anion Gap 9, BUN 13, Creatinine 0.50 L, Estim Creat Clear Calc 39.20, Est GFR (MDRD) Af Amer 149, Est GFR (MDRD) Non-Af 123, BUN/Creatinine Ratio 25.7 H, Glucose 93, Calcium 8.7 03/04/21 12:36: POC Glucose 94 03/04/21 14:49: POC Glucose 94 03/04/21 17:51: POC Glucose 84 Micro: Microbiology 03/02/21 00:50 Urine Catheter - Catheter Urine Culture - Final Escherichia coli 03/01/21 06:36 Nasal Secretion SARS-CoV-2 Antigen (Rapid) - Final Physical Exam Const alert, oriented x3 and no apparent distress Constitutional Narrative: Patient appears her stated age, she appears frail however General Appearance: cooperative, well kempt and well developed Orientation / Consciousness: awake, oriented to person, oriented to place and oriented to time HEENT normocephalic, head/scalp atraumatic and moist oral mucous membranes Head and Scalp: normocephalic Eyes PERRL, EOMs intact bilaterally and conjunctivae normal Neck nuchal rigidity, supple, no JVD, thyroid normal and no carotid bruits General: trachea midline Resp normal respiratory effort, no retractions, no use of accessory muscles and clear to auscultation bilaterally Auscultation: Negative for rales, rhonchi or wheezes Cardio regular rate, regular rhythm, S1 normal heart sound, S2 normal heart sound, no murmurs, no rub and no gallops GI soft to palpation, non-tender and non-distended GI Narrative: Patient has decreased bowel sounds in all 4 quadrant Extremity no clubbing, cyanosis or edema Skin no rashes or lesions noted General Skin Exam: no breakdown Neuro oriented x3, CN's II-XII intact bilaterally, no focal motor deficits and no sensory deficits noted Sensorium / Orientation: awake and alert Speech: speech normal Psych thought process normal and affect normal Assessment & Plan Assessment/Plan (1) Partial small bowel obstruction: PLAN: 1. Essential hypertension-patient is not currently on any medication for high blood pressure, patient's daughter states that the patient's blood pressure has been elevated at times in the past, I have elected to place patient on IV Vasotec, I have stopped her Trandate due to the possibility of bradycardia with this medication. #2 hyperlipidemia-patient's oral meds are on hold at the present time due to her NG tube status #3 type 2 diabetes-blood sugars will be monitored, sliding scale insulin will be administered if needed #4 partial small bowel obstruction-I have placed patient on IV Reglan to see if this would help resolve her bowel obstruction. #5 generalized debility secondary to multiple medical problems and advanced age- PT and OT are seeing the patient but they are limited due to the patient's NG tube status. #6 hypokalemia-resolved #7 hypothyroidism Charges/Coding Visit Charges Inpatient E&M: 54376 Subs Hosp L2
--- NOTE | 2021-03-04 21:35 | CM.ED ---
SW Note SW responded to SENIOR C SOFTWARE ENGINEER on patient however, when this card writer hand got to the unit patient was responsive and no SW needs were identified. Zoila RANDLE
[2021-03-04] MEDS: 0.9% Saline Lock 10 ML Syringe IV (22:46)
[2021-03-04] MEDS: Erythromycin Base 1 OPTH.TUBE 1 APPLIC RIGHT EYE (22:50)
[2021-03-05] VITALS (11 sets, daily range): BP systolic 144–175; BP diastolic 57–86; PULSE 55–75; RESP 16–20; TEMP 36.4–37.2; O2SAT 95–100
[2021-03-05] MEDS: Metoclopramide 10 MG/2 ML Vial 2.5 MG IV ×3 (00:20→12:44)
[2021-03-05] MEDS: 0.9% Saline Lock 10 ML Syringe IV ×6 (00:22→20:37)
[2021-03-05] MEDS: Enalaprilat 1.25 MG/ML Vial IV ×3 (00:24→12:46)
[2021-03-05 00:36] LABS: Bedside Glucose 70 mg/dL (70-110)
[2021-03-05] MEDS: Dextrose 5%/0.9% NaCl 1,000 ML 75 ML IV (01:30)
[2021-03-05] MEDS: DiphenhydrAMINE 50 MG/ML Syringe 12.5 MG IV (02:10)
[2021-03-05] MEDS: LORazepam 2 MG/ML Syringe 0.5 MG IV (05:50)
[2021-03-05 06:50] LABS: Bedside Glucose 107 mg/dL (70-110)
--- NOTE | 2021-03-05 09:15 | PCM.PN.SRG ---
Subjective Subjective Patient states she has had a bowel movement. Objective Data Objective Data Soft and flat abdomen. Vital Signs: Vital Signs Temp Pulse Resp BP Pulse Ox 98.4 F 59 L 16 144/57 H 95 03/05/21 06:04 03/05/21 07:43 03/05/21 06:04 03/05/21 06:04 03/05/21 06:04 Oxygen Flow Rate (L/min) 2 Oxygen Delivery Method Room Air Weight: 159 lb 6.307 oz Body Mass Index (BMI) 25.7 Intake & Output: Intake and Output for Last 24 Hours 03/03/21 03/04/21 03/05/21 23:59 23:59 23:59 Intake Total 2951.75 / 2951.75 1524.25 / 1524.25 1270.75 / 1270.75 Output Total 1625 / 1625 1300 / 1300 1100 / 1100 Balance 1326.75 / 1326.75 224.25 / 224.25 170.75 / 170.75 Lab / Micro Data Result Diagrams: 03/03/21 06:10 03/04/21 06:55 Labs: Laboratory Results - last 24 hr 03/04/21 12:36: POC Glucose 94 03/04/21 14:49: POC Glucose 94 03/04/21 17:51: POC Glucose 84 03/05/21 00:15: POC Glucose 70 03/05/21 06:12: POC Glucose 107 Micro: Microbiology 03/02/21 00:50 Urine Catheter - Catheter Urine Culture - Final Escherichia coli 03/01/21 06:36 Nasal Secretion SARS-CoV-2 Antigen (Rapid) - Final Assessment & Plan Assessment/Plan (1) Partial small bowel obstruction: PLAN: Believe it is okay to remove the NG tube now. Started on clear liquids
[2021-03-05] MEDS: Menthol/Lanolin/Calamine/Znox 113 GM Tube 1 APPLIC TOPICAL ×2 (10:10→20:25)
[2021-03-05] MEDS: Famotidine 200 MG/20 ML MDV 20 MG in 0.9% Normal Saline (Pres. free 8 ML IV (10:10)
[2021-03-05] MEDS: Neomycin/Polymyxin/Dexameth 5ML OPTH.BTL 1 DRP EACH EYE ×2 (10:11→20:26)
[2021-03-05 12:10] LABS: Bedside Glucose 132 mg/dL (70-110)
[2021-03-05] MEDS: Ondansetron 4 MG/2 ML Vial IV (15:57)
[2021-03-05] MEDS: Lisinopril 20 MG Tablet PO (16:09)
[2021-03-05] MEDS: 0.9% Normal Saline 1,000 ML 75 ML IV (17:36)
[2021-03-05] MEDS: Ensure Clear 120 ML Liquid PO (17:38)
[2021-03-05] MEDS: Acetaminophen 325 MG Tablet 650 MG PO (17:58)
--- NOTE | 2021-03-05 18:05 | PN.HOSP_ITS ---
Subjective Subjective Patient was seen and examined today, I took her off IV Unasyn and place her on Macrodantin for her cystitis. Patient had her NG tube removed today and has had bowel movements. Patient's blood pressure still has been on the high side, I placed her on oral lisinopril and stopped her IV Vasotec. Objective Data Objective Data Vital Signs: Vital Signs Temp Pulse Resp BP Pulse Ox 97.7 F L 67 18 173/66 H 100 03/05/21 12:33 03/05/21 16:20 03/05/21 12:33 03/05/21 12:33 03/05/21 12:33 Oxygen Flow Rate (L/min) 2 Oxygen Delivery Method Room Air Weight: 72.3 kg Body Mass Index (BMI) 25.7 Intake & Output: Intake and Output for Last 24 Hours 03/03/21 03/04/21 03/05/21 23:59 23:59 23:59 Intake Total 2951.75 / 2951.75 1524.25 / 1524.25 2429.75 / 2429.75 Output Total 1625 / 1625 1300 / 1300 1550 / 1550 Balance 1326.75 / 1326.75 224.25 / 224.25 879.75 / 879.75 Lab / Micro Data Result Diagrams: 03/03/21 06:10 03/04/21 06:55 Labs: Laboratory Results - last 24 hr 03/05/21 00:15: POC Glucose 70 03/05/21 06:12: POC Glucose 107 03/05/21 12:06: POC Glucose 132 H Micro: Microbiology 03/02/21 00:50 Urine Catheter - Catheter Urine Culture - Final Escherichia coli 03/01/21 06:36 Nasal Secretion SARS-CoV-2 Antigen (Rapid) - Final Physical Exam Const alert, oriented x3 and no apparent distress General Appearance: cooperative, well kempt and well developed Orientation / Consciousness: awake, oriented to person, oriented to place and oriented to time HEENT normocephalic and moist oral mucous membranes Eyes PERRL, EOMs intact bilaterally and conjunctivae normal Neck nuchal rigidity, supple, no JVD and thyroid normal General: trachea midline Resp normal respiratory effort and clear to auscultation bilaterally Auscultation: Negative for rales, rhonchi or wheezes Cardio regular rate, regular rhythm, S1 normal heart sound, S2 normal heart sound, no murmurs, no rub and no gallops GI normal to inspection, nondistended, normoactive bowel sounds, soft to palpation, non-tender and non-distended Extremity no clubbing, cyanosis or edema Skin no rashes or lesions noted General Skin Exam: no breakdown Neuro oriented x3, CN's II-XII intact bilaterally, no focal motor deficits and no sensory deficits noted Sensorium / Orientation: awake and alert Speech: speech normal Psych thought process normal and affect normal Assessment & Plan Assessment/Plan (1) Partial small bowel obstruction: PLAN: 1. Essential hypertension-patient is currently on lisinopril 20 mg daily. #2 hyperlipidemia-I will review the patient's medications and add some of her home medications on #3 type 2 diabetes-blood sugars will be monitored, sliding scale insulin will be administered if needed #4 partial small bowel obstruction-I have stopped the patient's IV Reglan #5 generalized debility secondary to multiple medical problems and advanced age- PT and OT are seeing the patient but they are limited due to the patient's NG tube status. #6 hypokalemia-resolved #7 hypothyroidism Charges/Coding Visit Charges Inpatient E&M: 34131 Subs Hosp L2
[2021-03-05] MEDS: Famotidine 200 MG/20 ML MDV 20 MG in 0.9% Normal Saline (Pres. free 8 ML 300 MG IV (20:24)
[2021-03-05] MEDS: Venlafaxine HCl 75 MG Tablet PO (20:24)
[2021-03-05] MEDS: Erythromycin Base 1 OPTH.TUBE 1 APPLIC RIGHT EYE (20:25)
[2021-03-05] MEDS: Morphine 2 MG/ML Syringe IV (20:37)
[2021-03-06] VITALS (9 sets, daily range): BP systolic 159–210; BP diastolic 62–120; PULSE 61–76; RESP 16–18; TEMP 36.5–36.9; O2SAT 96–98
[2021-03-06] MEDS: 0.9% Normal Saline 1,000 ML 75 ML IV ×2 (05:33→19:00)
[2021-03-06] MEDS: Levothyroxine 88 MCG Tablet PO (05:36)
[2021-03-06] MEDS: Lisinopril 20 MG Tablet PO ×3 (08:43→22:27)
[2021-03-06] MEDS: Nitrofurantoin Macrocrystals 100 MG Capsule PO ×2 (08:43→17:28)
[2021-03-06] MEDS: Multivitamin (Healthy Eyes) Capsule 1 CAP PO (08:43)
[2021-03-06] MEDS: Venlafaxine HCl 75 MG Tablet PO ×2 (08:43→22:27)
[2021-03-06] MEDS: Menthol/Lanolin/Calamine/Znox 113 GM Tube 1 APPLIC TOPICAL ×2 (08:43→22:30)
[2021-03-06] MEDS: Neomycin/Polymyxin/Dexameth 5ML OPTH.BTL 1 DRP EACH EYE ×2 (08:44→22:26)
[2021-03-06] MEDS: Famotidine 200 MG/20 ML MDV 20 MG in 0.9% Normal Saline (Pres. free 8 ML 300 MG IV (10:39)
--- NOTE | 2021-03-06 11:47 | PCM.PN.SRG ---
Subjective Subjective patient denies abdominal pain, but seems to be having intermittent pain, albeit not requiring narcotic medications - will d/c morphine IV yesterday bowel movement, patient unknown today patient states that she is very hungry Objective Data Objective Data Vital Signs: Vital Signs Temp Pulse Resp BP Pulse Ox 98.0 F 74 18 170/70 H 98 03/06/21 08:35 03/06/21 08:35 03/06/21 08:35 03/06/21 08:35 03/06/21 08:35 Oxygen Flow Rate (L/min) 2 Oxygen Delivery Method Room Air Weight: 72.3 kg Body Mass Index (BMI) 25.7 Intake & Output: Intake and Output for Last 24 Hours 03/04/21 03/05/21 03/06/21 23:59 23:59 23:59 Intake Total 1524.25 / 1524.25 2889.75 / 2939.75 1126.25 / 1126.25 Output Total 1300 / 1300 2100 / 2375 475 / 475 Balance 224.25 / 224.25 789.75 / 564.75 651.25 / 651.25 Lab / Micro Data Result Diagrams: 03/03/21 06:10 03/04/21 06:55 Labs: Laboratory Results - last 24 hr 03/05/21 12:06: POC Glucose 132 H Micro: Microbiology 03/02/21 00:50 Urine Catheter - Catheter Urine Culture - Final Escherichia coli 03/01/21 06:36 Nasal Secretion SARS-CoV-2 Antigen (Rapid) - Final Physical Exam Const alert and oriented x3 General Appearance: cooperative Neck supple Resp normal respiratory effort Effort and Inspection: able to speak in complete sentences GI GI Narrative: abdomen is soft and nontender, non distended rectal examination - air and soft stool in vault Assessment & Plan Assessment/Plan (1) Partial small bowel obstruction: PLAN: PSBO - resolved advance to regular diet if tolerates, then patient can be discharged from hospital from surgical standpoint
[2021-03-06] MEDS: Acetaminophen 325 MG Tablet 650 MG PO (12:36)
--- NOTE | 2021-03-06 12:37 | CASEMGMT ---
Social Work Note SW in to speak with pt to discuss discharge plans. Pt laying in bed, sleeping, but did wake up when this worker arrived. IRINA spoke with pt regarding discharge plans. Pt states she is not sure of discharge plans, states she hasn't talked to her daughter Josey about plans. SW informed pt that this worker can call Josey. Pt states you probably won't be able to reach her, she's working. SW informed pt that this worker can just try and call her daughter. PT agreeable to this worker calling her daughter Josey. Again, pt states again she is not sure of discharge plans. SW asked pt if this worker could go ahead and send the initial referral to SNF/[facility]. Pt states well I don't know what the plan is, I am not vaccinated to if I got there I will need to be isolated. SW informed pt that that is true but some SNF are allowing some family members to visit. SW to call pt's daughter Josey. SW placed a call to pt's daughter Josey. IRINA introduced self and role at [facility]. IRINA spoke with Josey about discharge plans. Josey states she would like to speak with pt first before deciding on discharge plans as pt is not vaccinated and is not sure pt wants to be isolated again in her room at a SNF. IRINA provided Josey with this worker's direct number. Josey to speak to pt and then call this worker back regarding discharge plans. IRINA and VICENTA CM to continue to follow. Ruth Martinez TECHNICAL SUPPORT AGENT, PRE PRESS MANAGER
--- NOTE | 2021-03-06 13:47 | PCM.PN.HOSP ---
Subjective Subjective Patient is an 85-year-old lady admitted with abdominal pain. Diagnosed with partial small bowel obstruction admitted to regular nursing floor for further management Objective Data Objective Data Vital Signs: Vital Signs Temp Pulse Resp BP Pulse Ox 98.0 F 74 18 170/70 H 98 03/06/21 08:35 03/06/21 08:35 03/06/21 08:35 03/06/21 08:35 03/06/21 08:35 Oxygen Flow Rate (L/min) 2 Oxygen Delivery Method Room Air Weight: 72.3 kg Body Mass Index (BMI) 25.7 Intake & Output: Intake and Output for Last 24 Hours 03/04/21 03/05/21 03/06/21 23:59 23:59 23:59 Intake Total 1524.25 / 1524.25 2889.75 / 2939.75 1126.25 / 1126.25 Output Total 1300 / 1300 2100 / 2375 475 / 475 Balance 224.25 / 224.25 789.75 / 564.75 651.25 / 651.25 Lab / Micro Data Result Diagrams: 03/03/21 06:10 03/04/21 06:55 Micro: Microbiology 03/02/21 00:50 Urine Catheter - Catheter Urine Culture - Final Escherichia coli 03/01/21 06:36 Nasal Secretion SARS-CoV-2 Antigen (Rapid) - Final Physical Exam Narrative GENERAL: cooperative HEENT: Atraumatic; EYES; Anicteric, Normal Conjunctiva NECK; supple, normal thyroid, RESPIRATORY: Diminished to auscultation CARDIOVASCULAR: Regular S1 S2, GI: soft, normoactive bowel sounds, : No Renal angle tenderness; EXTREMITIES: No edema, no clubbing, MUSCULOSKELETAL: no muscle waisting NEURO: Awake; no lateralizing signs. SKIN: No Rash PSYCH; Flat affect Assessment & Plan Assessment/Plan (1) Partial small bowel obstruction: PLAN: Patient is an 85-year-old lady admitted with abdominal pain. Diagnosed with partial small bowel obstruction admitted to regular nursing floor for further management 1. Partial small bowel obstruction ?Managed conservatively. Resolved patient however complains of pain following initiation of oral diet 2. Hypertension -Blood pressure control not optimal, did continue home meds with subsequent adjustments of BP meds. Also added as needed hydralazine. 3. Diabetes mellitus type 2 ?Placed on Accu-Cheks before meals and at bedtime with sliding scale coverage 4. Hypothyroidism - Patient is on levothyroxine home dose continued 5. Hypokalemia ?Corrected per protocol 6. DVT prophylaxis ?SC Sohail Charges/Coding Visit Charges Inpatient E&M: 12945 Subs Hosp L2
[2021-03-06] MEDS: HYDROcodone Bitartrate/Apap 5/325 Tablet PO ×2 (14:03→23:22)
[2021-03-06] MEDS: Ensure Clear 120 ML Liquid PO (14:04)
[2021-03-06] MEDS: hydrALAZINE 20 MG/ML Vial 10 MG IV ×2 (14:30→20:27)
--- NOTE | 2021-03-06 16:00 | CASEMGMT ---
Social Work Note IRINA received call from pt's daughter Josey stating she spoke with her sister and pt and they all agree pt can return home at discharge. Josey states her sister is not working anymore and can stay with pt initially. IRINA asked Josey if she wanted any C. Josey agreeable to [facility] for RN, PT/OT, aides. IRINA updated RN CM. Plan: Home with C Ruth Martinez STORE SALES CONSULTANT, TALENT ACQUISITION ASSISTANT
--- NOTE | 2021-03-06 16:19 | CHAPLAIN ---
Type of Pastoral Visit _x__ Initial Visit ___ Follow-up Visit ___ On-call Visit ___ General Patient Visit ___ Spiritual Assessment ___ Family Conference ___ Bereavement ___ Rapid Response ___ Code Blue ___ Other (describe below) Pastoral Care Referral From _x__ Patient ___ Family ___ Nurse ___ Physician ___ Head Butler ___ Hand Method Lasting Machine Operator ___ Other (describe below) Sacrament/Intervention _x__ Active listening ___ Anointing ___ Christianity ___ Bereavement ___ Communion _x__ Angeline exploration ___ _x__ Life review _x__ Prayer ___ Reconciliation ___ Sacrament of Sick _x__ Supportive presence ___ Wedding ___ Other (describe below) Pastoral Comments patient states at end of visit I am so glad you came; pt speaks of her discomfort physically, her uncertainty of where she will go next since I probably will not be going home; pt was talkative and requested praying the Our Father with her; pt also prayed herself; pt is of the [employer] angeline and this is important to her; pt is open to further visits
[2021-03-06] MEDS: 0.9% Saline Lock 10 ML Syringe IV (20:27)
[2021-03-06] MEDS: Erythromycin Base 1 OPTH.TUBE 1 APPLIC RIGHT EYE (22:25)
[2021-03-06] MEDS: Sucralfate 1 GM Tablet PO (22:27)
[2021-03-06] MEDS: Ondansetron 4 MG/2 ML Vial IV (23:25)
[2021-03-07] VITALS (14 sets, daily range): BP systolic 145–205; BP diastolic 59–88; PULSE 57–76; RESP 16–18; TEMP 36.3–36.8; O2SAT 93–100
[2021-03-07 05:06] LABS: Absolute Lymphocyte Count 1.41 X10^3/uL (0.83-4.51); Absolute Neutrophil Count 4.3 X10^3/uL (2.0-7.7); Basophil# 0.02 X10^3/uL; Basophil% 0.3 % (0-1); Eosinophil# 0.11 X10^3/uL; Eosinophils% 1.7 % (0-5); Hematocrit 38.8 % (37-47); Hemoglobin 12.8 g/dL (12.0-15.0); Lymphocyte # 1.41 X10^3/ul (0.83-4.51); Mean Corpuscular Hgb 28.6 pg (27.0-32.0); Mean Corpuscular Volume 86.6 fL (81-99); Mean Platelet Vol. 9.1 fl (6.2-12.0); Monocyte# 0.59 X10^3/uL; Monocyte% 9.2 % (0-10); NRBC Flagged by Analyzer 0 % (0-5); Neutrophil # 4.27 X10^3/uL (2.7-7.7); Neutrophil % 66.5 % (47-70); Platelet Count 275 K/mm3 (150-450); RBC Distribution Width SD 40.7 fl (35.1-43.9); Red Blood Count 4.48 M/mm3 (4.2-5.4); White Blood Count 6.4 K/mm3 (4.4-11.0)
[2021-03-07 05:31] LABS: Anion Gap 9 (5-15); BUN 10 mg/dL (7-18); Chloride 102 mmol/L (98-107); Creatinine, Serum 0.42 mg/dL (0.55-1.02); EST Glomerular Filtration Rate 154 mL/min (>60); Est Glom Filt Rate - Afr Amer 187 mL/min (>60); Glucose 106 mg/dL (74-106); Magnesium 1.6 mg/dL (1.6-2.6); Potassium 3.1 mmol/L (3.5-5.1); Sodium Level 138 mmol/L (136-145)
[2021-03-07] MEDS: Sucralfate 1 GM Tablet PO (05:35)
[2021-03-07] MEDS: Levothyroxine 88 MCG Tablet PO (05:35)
--- NOTE | 2021-03-07 07:23 | PN.HOSP_ITS ---
Subjective Subjective Patient seen did complain of some abdominal discomfort with eating and apparently had a bout of emesis. Case discussed with Dr. Dillon with general surgery plan for patient to undergo Gastrografin imaging studies. Patient blood pressure also not well controlled adjusted blood pressure medications. Potassium down to 3.1 replacement initiated Objective Data Objective Data Vital Signs: Vital Signs Temp Pulse Resp BP Pulse Ox 98.1 F 73 18 180/88 H 96 03/07/21 05:34 03/07/21 05:34 03/07/21 05:34 03/07/21 05:34 03/07/21 05:34 Oxygen Flow Rate (L/min) 2 Oxygen Delivery Method Room Air Weight: 72.3 kg Body Mass Index (BMI) 25.7 Intake & Output: Intake and Output for Last 24 Hours 03/05/21 03/06/21 03/07/21 23:59 23:59 23:59 Intake Total 2889.75 / 2939.75 2836.25 / 2836.25 Output Total 2100 / 2375 2475 / 2475 150 / 150 Balance 789.75 / 564.75 361.25 / 361.25 -150 / -150 Lab / Micro Data Result Diagrams: 03/07/21 04:56 03/07/21 04:56 Labs: Laboratory Results - last 24 hr 03/07/21 04:56: WBC 6.4, RBC 4.48, Hgb 12.8, Hct 38.8, MCV 86.6, MCH 28.6, MCHC 33.0 D, RDW Std Deviation 40.7, RDW Coeff of Marleni 13.0, Plt Count 275, MPV 9.1, Immature Gran % (Auto) 0.300, Neut % (Auto) 66.5, Lymph % (Auto) 22.0, [place] % (Auto) 9.2, Eos % (Auto) 1.7, Baso % (Auto) 0.3, Absolute Neuts (auto) 4.3, Absolute Lymphs (auto) 1.41, Nucleated RBC % 0 03/07/21 04:56: Sodium 138, Potassium 3.1 L, Chloride 102, Carbon Dioxide 27.0, Anion Gap 9, BUN 10, Creatinine 0.42 L, Estim Creat Clear Calc 39.20, Est GFR (MDRD) Af Amer 187, Est GFR (MDRD) Non-Af 154, BUN/Creatinine Ratio 24.0 H, Glucose 106, Calcium 9.0, Magnesium 1.6 Micro: Microbiology 03/02/21 00:50 Urine Catheter - Catheter Urine Culture - Final Escherichia coli 03/01/21 06:36 Nasal Secretion SARS-CoV-2 Antigen (Rapid) - Final Physical Exam Narrative GENERAL: cooperative HEENT: Atraumatic; EYES; Anicteric, Normal Conjunctiva NECK; supple, normal thyroid, RESPIRATORY: Diminished to auscultation CARDIOVASCULAR: Regular S1 S2, GI: soft, normoactive bowel sounds, : No Renal angle tenderness; EXTREMITIES: No edema, no clubbing, MUSCULOSKELETAL: no muscle waisting NEURO: Awake; no lateralizing signs. SKIN: No Rash PSYCH; Flat affect Assessment & Plan Assessment/Plan (1) Partial small bowel obstruction: PLAN: Patient is an 85-year-old lady admitted with abdominal pain. Diagnosed with partial small bowel obstruction admitted to regular nursing floor for further management 1. Partial small bowel obstruction ?Managed conservatively. Resolved patient however complains of pain following initiation of oral diet -03/07/2021;Patient seen did complain of some abdominal discomfort with eating and apparently had a bout of emesis. Case discussed with Dr. Dillon with general surgery plan for patient to undergo Gastrografin imaging studies. 2. Hypertension -Blood pressure control not optimal, did continue home meds with subsequent adjustments of BP meds. Also added as needed hydralazine. ?03/07/2021; blood pressure control still not optimal added amlodipine 3. Diabetes mellitus type 2 ?Placed on Accu-Cheks before meals and at bedtime with sliding scale coverage 4. Hypothyroidism - Patient is on levothyroxine home dose continued 5. Hypokalemia ?Corrected per protocol -03/07/2021 potassium still low at 3.1 additional potassium given 6. DVT prophylaxis ?SC Lovenox Charges/Coding Visit Charges Inpatient E&M: 71727 Subs Hosp L3
--- NOTE | 2021-03-07 07:39 | PN.SURG_ITS ---
Subjective Subjective Patient states that she has had increasing abdominal pain since yesterday afternoon passing small amounts of flatus had emesis last night of bile this morning, she states that the pain comes in waves, but when waxes is still present does not feel hungry Objective Data Objective Data Vital Signs: Vital Signs Temp Pulse Resp BP Pulse Ox 98.1 F 73 18 180/88 H 96 03/07/21 05:34 03/07/21 05:34 03/07/21 05:34 03/07/21 05:34 03/07/21 05:34 Oxygen Flow Rate (L/min) 2 Oxygen Delivery Method Room Air Weight: 72.3 kg Body Mass Index (BMI) 25.7 Intake & Output: Intake and Output for Last 24 Hours 03/05/21 03/06/21 03/07/21 23:59 23:59 23:59 Intake Total 2889.75 / 2939.75 2836.25 / 2836.25 Output Total 2100 / 2375 2475 / 2475 150 / 150 Balance 789.75 / 564.75 361.25 / 361.25 -150 / -150 Lab / Micro Data Result Diagrams: 03/07/21 04:56 03/07/21 04:56 Labs: Laboratory Results - last 24 hr 03/07/21 04:56: WBC 6.4, RBC 4.48, Hgb 12.8, Hct 38.8, MCV 86.6, MCH 28.6, MCHC 33.0 D, RDW Std Deviation 40.7, RDW Coeff of Marleni 13.0, Plt Count 275, MPV 9.1, Immature Gran % (Auto) 0.300, Neut % (Auto) 66.5, Lymph % (Auto) 22.0, [place] % (Auto) 9.2, Eos % (Auto) 1.7, Baso % (Auto) 0.3, Absolute Neuts (auto) 4.3, Absolute Lymphs (auto) 1.41, Nucleated RBC % 0 03/07/21 04:56: Sodium 138, Potassium 3.1 L, Chloride 102, Carbon Dioxide 27.0, Anion Gap 9, BUN 10, Creatinine 0.42 L, Estim Creat Clear Calc 39.20, Est GFR (MDRD) Af Amer 187, Est GFR (MDRD) Non-Af 154, BUN/Creatinine Ratio 24.0 H, Glucose 106, Calcium 9.0, Magnesium 1.6 Micro: Microbiology 03/02/21 00:50 Urine Catheter - Catheter Urine Culture - Final Escherichia coli 03/01/21 06:36 Nasal Secretion SARS-CoV-2 Antigen (Rapid) - Final Physical Exam Const alert and oriented x3 General Appearance: cooperative Neck supple Resp normal respiratory effort Effort and Inspection: able to speak in complete sentences GI GI Narrative: abdomen is soft with tenderness to deep palpation, but no jany tonteal signs, no distention noted Assessment & Plan Assessment/Plan (1) Partial small bowel obstruction: PLAN: patient had resolution yesterday morning, but now has return of her symptoms of pSBO I have given her 30 ml of gastrografin po and will take KUB later this morning will try to hold off replacement of NG tube at this point in time
[2021-03-07] MEDS: 0.9% Normal Saline 1,000 ML 75 ML IV ×2 (07:56→21:29)
[2021-03-07] MEDS: 0.9% Saline Lock 10 ML Syringe IV (07:56)
[2021-03-07] MEDS: Ondansetron 4 MG/2 ML Vial IV (07:56)
[2021-03-07] MEDS: hydrALAZINE 20 MG/ML Vial 10 MG IV ×2 (08:07→23:36)
[2021-03-07] MEDS: DiphenhydrAMINE 50 MG/ML Syringe 12.5 MG IV (08:09)
--- NOTE | 2021-03-07 08:11 | PCS.PANDOC ---
PANDEMIC DOCUMENTATION INITIATED: Date: 11/07/2020 Time: 1900 emergency team nursing assignment sheet
[2021-03-07] MEDS: Potassium Chloride 10mEq/100mL 10 MEQ/100 ML IV.SOLN. 100 MEQ IV BOLUS ×4 (08:38→19:32)
[2021-03-07] MEDS: HYDROcodone Bitartrate/Apap 5/325 Tablet PO (09:20)
[2021-03-07] MEDS: amLODIPine 10 MG Tablet PO (09:20)
[2021-03-07] MEDS: Neomycin/Polymyxin/Dexameth 5ML OPTH.BTL 1 DRP EACH EYE ×2 (11:19→21:28)
[2021-03-07] MEDS: Menthol/Lanolin/Calamine/Znox 113 GM Tube 1 APPLIC TOPICAL ×2 (11:21→21:27)
[2021-03-07] MEDS: Lisinopril 20 MG Tablet PO (11:21)
[2021-03-07] MEDS: Multivitamin (Healthy Eyes) Capsule 1 CAP PO (11:21)
[2021-03-07] MEDS: Venlafaxine HCl 75 MG Tablet PO (11:21)
--- NOTE | 2021-03-07 11:42 | NURSING ---
This nurse gave scheduled morning pills. No later then 2 min after pt finished swallowing them, pt vomited. Emesis was drk green in color and a total of 1200ml. Pt states her stomach was hurting and was moaning ever since I had that drink. Pt had contrast given to her to drink. Dr. Dillon made aware that pt vomited 1200cc.
--- NOTE | 2021-03-07 11:59 | NURSING ---
Ng inserted by Dr. Dillon at this time. 100cc of uma green, thick sludge drainage came out into the canister.
--- NOTE | 2021-03-07 14:04 | NURSING ---
Pt taken down to OR via bed.
--- NOTE | 2021-03-07 14:21 | PCM.PN.BLA ---
Progress Note patient had emesis of bilious liquid about 1200 ml around noon, still complaining of abdominal pain NG tube placed by me and additional thick bile secretions obtained suspect continuing bowel obstruction - will proceed to OR for exploratory laparotomy and lysis of adhesions, possible bowel resection Patient was given the above explanation. I spoke with daughters Josey and Leelee via telephone regarding above. Risks/benefits explained, I have answered all their questions and they have no further questions
--- NOTE | 2021-03-07 15:20 | COL_PTH ---
PATIENT: ANGE LAZARO LOC: MS3 U#:[id number] AGE/SX: 85/F ROOM: [facility] [place] RE03/01/[address]: Dr. Alexandra Mcgrath MD : [id number] BED: 1 DIS: 03/14/2021 SPEC #: [id number] RECD: 03/08/21 07:16 STATUS: MICHELLE MARI #: [id number] ADELITA: 03/07/21 15:[address]: Alfreda Dillon DEPT: SURGICAL PATHOLOGY RECD BY: Keaton Deleon ENTERED: 03/08/21 10:06 SP TYPE: COLON OTHR DR: MD Dr. Charlotte Cazares DO Dr. William Lago, MD Tissues: Colon, NOS Procedures: Surgery Specimen Level V HEADER OPERATION: Exploratory laparotomy PRE-OP DIAGNOSIS: Partial small bowel obstruction TISSUE SUBMITTED: Small bowel segments MICROSCOPIC DIAGNOSIS Small bowel, segmental resections: Focal hemorrhagic infarction and associated mucosal ulceration. Focal serosal fibrosis. Margins of excision with no pathologic change. AM:gabriel 03/09/2021 MICROSCOPIC DESCRIPTION Slides are reviewed. GROSS DESCRIPTION Received in fixative is one container labeled with the patient's name and designated small bowel segments. The specimen consists of four fragments. The small fragments average 3 cm in length and 0.5 cm in average diameter and are free of mass lesions. The second largest fragment measures 6 cm in length and approximately 3.5 cm in diameter and contains an anastomosis and four staple lines. The mucosa is light pham in color and thrown into normal folds. The remote anastomotic site appears to be intact. No tears or perforations are identified. The largest segment of bowel measures 10 cm in length and contains two staple lines. Located approximately 1.5 cm from one staple line is an area of band-like serosal discoloration that is bustillo-pham in color. This area measures approximately 1 cm in length. Serial sections reveal no mucosal mass lesions. Workday Senior Associate sections are submitted in five cassettes as follows: 1 ? retail wireless sales representative sections from smallest two fragments of bowel, 2 - retail wireless sales representative section of anastomotic site, 3 - retail wireless sales representative sections of bowel adjacent to anastomotic site, 4 ? largest segment of bowel with serosal abnormality, 5 ? largest segment of bowel adjacent to area of serosal abnormality. / AM:gabriel 03/08/21 TC:5 CPT: 45911
--- NOTE | 2021-03-07 17:18 | OP.PCM_ITS ---
Report of Operation Date of Procedure: 03/07/21 Pre-Operative Diagnosis: small bowel obstruction Post-Operative Diagnosis: small bowel obstruction - complete Surgery/Procedure Performed:: small bowel resection, exploratory laparotomy, lysis of adhesions Description of Surgical Findings:: dense adhesions throughout colon, closed loop in LUQ abdomen with dense stricture - resected, then anastomosis appeared dusky and therefore redone Surgeon: Alfreda Dillon rn disease management: Oliver Cramer Type of Anesthesia: General Anesthesiologist: Demetris Bernard Specimen's removed: small bowel Drains: 15 Fr in pelvis Estimated Blood Loss (mL): 100 ml Fluids Replaced: 600 ml RL Description of Procedure: After informed consent was obtained, the patient was brought to the Operating Room. Appropriate time out protocol was followed. The patient was then placed under general anesthesia. The abdomen was then prepped with a sterile surgical skin preparation. Sterile surgical drapes were placed. This skin and subcutaneous tissues were then widely infiltrated with the local anesthetic. Local anesthetic with epinephrine, was infiltrated in the tissues for postoperative pain control and hemostasis. A skin incision was then made with a 10 blade scalpel at the previous incisional site scar (midline - periumbilical at previous incisional site) and carried down to the subcutaneous tissues using sharp dissection. Any hemorrhage was adequately controlled with electrocautery. The fascia was identified. It was carefully incised and the intraabdominal cavity was entered. There was peritoneal fluid noted, but it was not purulent. There were dense adhesions of the small bowel to the omentum and the lower abdomen.. This took some time to sharply dissect through this tissue to be able to delineate the small bowel. These adhesions had to be layer by layer to identify the point of obstruction. These adhesions were taken down by sharp dissection. Taking down these adhesions added at least an hour to the surgical procedure. Any hemorrhage was controlled with electrocautery. There were dense adhesions between the small bowel, omentum and anterior abdominal wall. Taking down these adhesions took some time, due the dense nature of this scar tissue. In the LUQ of the abdomen, there was an area of small bowel that was noticeably strictured and scarred down by an internal loop and this is the point of obstruction. 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 A linear 55 HARRIETT stapling device was fired proximal and distal to the points of stricture. The mesentary of this segment of small bowel was then transected and ligated with vicryl suture. The segment of small bowel, 10 cm, was thus removed and forward to pathology for analysis. The antimesenteric corners of the stapled ends of the small bowel were then brought together and the corners sharply transected. Each limb of the linear GI 55 stapling device was then placed in the proximal and distal transected ends of the small bowel and then fired. Closure of the resulting opening was then done with a TIA 60 stapling device. Thus, this was a side to side, functional end to end, stapled anastomosis. No active bleeding was noted at the anastomosis. The anastomosis was palpated and widely patent. A heel stitch was placed using 3-0 vicryl. However, after a few minutes, the anastomosis appeared dusky, therefore it was redone. A linear 55 HARRIETT stapling device was fired proximal and distal to the points of the dusky anastomosis.. The mesentary of this segment of small bowel was then transected and ligated with vicryl suture. The segment of small bowel, 10 cm, was thus removed and forward to pathology for analysis. The antimesenteric corners of the stapled ends of the small bowel were then brought together and the corners sharply transected. Each limb of the linear GI 55 stapling device was then placed in the proximal and distal transected ends of the small bowel and then fired. Closure of the resulting opening was then done with a TIA 60 stapling device. Thus, this was a side to side, functional end to end, stapled anastomosis. No active bleeding was noted at the anastomosis. The anastomosis was palpated and widely patent. A heel stitch was placed using 3-0 vicryl. The resulting mesentery opening was closed with running 3-0 vicryl suture. The anastomosis had good coloration. The small bowel was examined from the ligament of Treitz to the ileocecal valve and no other points of obstruction or injury was noted The small bowel was then placed back in its proper anatomical position. The abdomen was vigorously irrigated with warmed normal saline, and all irrigant was aspirated out. A 15 Fr passive round drain was placed in the pelvis and brought out via a separate skin incision. The fascia was then reapproximated along the midline vertically with a continuous looped #1 PDS suture. Trell's fascia was reapproximated with vicryl suture. The skin was reapproximated with skin albert. Telfa and 4x4s were placed for a sterile dressing. The patient was then extubated by the anesthesia provider. The patient was brought from to the Recovery Room in stable condition. Complications none noted Admit VTE Documentation VTE Present on Admission: Yes VTE Mechan Device Prophylaxis: SCD's
[2021-03-07] MEDS: Morphine 4 MG/ML Syringe IV (21:27)
[2021-03-07] MEDS: Erythromycin Base 1 OPTH.TUBE 1 APPLIC RIGHT EYE (21:28)
[2021-03-08] VITALS (11 sets, daily range): BP systolic 121–146; BP diastolic 56–86; PULSE 80–86; RESP 16–18; TEMP 37–37.3; O2SAT 91–96
[2021-03-08] MEDS: 0.9% Saline Lock 10 ML Syringe IV (00:02)
[2021-03-08] MEDS: Morphine 4 MG/ML Syringe IV ×2 (00:02→12:04)
[2021-03-08] MEDS: DiphenhydrAMINE 50 MG/ML Syringe 12.5 MG IV (04:54)
[2021-03-08] MEDS: 0.9% Normal Saline 1,000 ML 75 ML IV (04:56)
[2021-03-08 06:13] LABS: Absolute Lymphocyte Count 0.64 X10^3/uL (0.83-4.51); Basophil# 0.02 X10^3/uL; Basophil% 0.3 % (0-1); Eosinophil# 0.02 X10^3/uL; Eosinophils% 0.3 % (0-5); Hematocrit 40.3 % (37-47); Hemoglobin 12.8 g/dL (12.0-15.0); Lymphocyte # 0.64 X10^3/ul (0.83-4.51); Lymphocyte % 8.7 % (19-41); Mean Corp Hgb Conc 31.8 g/dL (32-36); Mean Corpuscular Hgb 28.4 pg (27.0-32.0); Mean Corpuscular Volume 89.4 fL (81-99); Mean Platelet Vol. 9.2 fl (6.2-12.0); Monocyte# 0.67 X10^3/uL; Monocyte% 9.1 % (0-10); NRBC Flagged by Analyzer 0 % (0-5); Neutrophil % 81.2 % (47-70); Platelet Count 301 K/mm3 (150-450); RBC Distribution Width CV 13.3 % (11.6-14.6); RBC Distribution Width SD 43.7 fl (35.1-43.9); Red Blood Count 4.51 M/mm3 (4.2-5.4); White Blood Count 7.4 K/mm3 (4.4-11.0)
[2021-03-08 06:54] LABS: Anion Gap 11 (5-15); BUN 19 mg/dL (7-18); BUN/Creat Ratio 25.9 RATIO (10-20); Calcium,Total 8.3 mg/dL (8.5-10.1); Chloride 106 mmol/L (98-107); Creatinine, Serum 0.73 mg/dL (0.55-1.02); EST Glomerular Filtration Rate 80 mL/min (>60); Est Glom Filt Rate - Afr Amer 97 mL/min (>60); Glucose 126 mg/dL (74-106); Potassium 3.5 mmol/L (3.5-5.1); Sodium Level 140 mmol/L (136-145)
--- NOTE | 2021-03-08 07:33 | PN.HOSP_ITS ---
Subjective Subjective Patient underwent exploratory laparotomy with small bowel resection and lysis of adhesion following failure of conservative management for small bowel obstruction on 03/07/[address] Alfreda Dillon Objective Data Objective Data Vital Signs: Vital Signs Temp Pulse Resp BP Pulse Ox 98.9 F 83 18 130/86 H 93 03/08/21 04:41 03/08/21 04:41 03/08/21 04:41 03/08/21 04:41 03/08/21 04:41 Oxygen Flow Rate (L/min) 4 Oxygen Delivery Method Room Air Weight: 72.3 kg Body Mass Index (BMI) 25.7 Intake & Output: Intake and Output for Last 24 Hours 03/06/21 03/07/21 03/08/21 23:59 23:59 23:59 Intake Total 2836.25 / 2836.25 2526 / 2526 608.75 / 608.75 Output Total 2475 / 2475 1545 / 1545 430 / 430 Balance 361.25 / 361.25 981 / 981 178.75 / 178.75 Lab / Micro Data Result Diagrams: 03/08/21 06:02 03/08/21 06:02 Labs: Laboratory Results - last 24 hr 03/08/21 06:02: WBC 7.4, RBC 4.51, Hgb 12.8, Hct 40.3, MCV 89.4, MCH 28.4, MCHC 31.8 L, RDW Std Deviation 43.7, RDW Coeff of Marleni 13.3, Plt Count 301, MPV 9.2, Immature Gran % (Auto) 0.400, Neut % (Auto) 81.2 H, Lymph % (Auto) 8.7 L, [place] % (Auto) 9.1, Eos % (Auto) 0.3, Baso % (Auto) 0.3, Absolute Neuts (auto) 6.0, Absolute Lymphs (auto) 0.64 L, Nucleated RBC % 0 03/08/21 06:02: Sodium 140, Potassium 3.5, Chloride 106, Carbon Dioxide 23.0, Anion Gap 11, BUN 19 H, Creatinine 0.73, Estim Creat Clear Calc 39.20, Est GFR (MDRD) Af Amer 97, Est GFR (MDRD) Non-Af 80, BUN/Creatinine Ratio 25.9 H, Glucose 126 H, Calcium 8.3 L Micro: Microbiology 03/02/21 00:50 Urine Catheter - Catheter Urine Culture - Final Escherichia coli 03/01/21 06:36 Nasal Secretion SARS-CoV-2 Antigen (Rapid) - Final Physical Exam Narrative GENERAL: Frail looking HEENT: Atraumatic; NG tube in place EYES; Anicteric, Normal Conjunctiva NECK; supple, normal thyroid, RESPIRATORY: Diminished to auscultation CARDIOVASCULAR: Regular S1 S2, GI: Lower abdominal incision CDI : No Renal angle tenderness; EXTREMITIES: No edema, no clubbing, MUSCULOSKELETAL: no muscle waisting NEURO: Awake; no lateralizing signs. SKIN: No Rash PSYCH; Flat affect Assessment & Plan Assessment/Plan (1) Partial small bowel obstruction: PLAN: Patient is an 85-year-old lady admitted with abdominal pain. Diag nosed with partial small bowel obstruction admitted to regular nursing floor for further management 1. Partial small bowel obstruction ?Managed conservatively. Resolved patient however complains of pain following initiation of oral diet -03/07/2021;Patient seen did complain of some abdominal discomfort with eating and apparently had a bout of emesis. Case discussed with Dr. Dillon with general surgery plan for patient to undergo Gastrografin imaging studies. ?03/08/2021; Patient underwent exploratory laparotomy with small bowel resection and lysis of adhesion following failure of conservative management for small bowel obstruction on 03/07/[address] Alfreda Dillon 2. Hypertension -Blood pressure control not optimal, did continue home meds with subsequent adjustments of BP meds. Also added as needed hydralazine. ?03/07/2021; blood pressure control still not optimal added amlodipine 3. Diabetes mellitus type 2 ?Placed on Accu-Cheks before meals and at bedtime with sliding scale coverage 4. Hypothyroidism - Patient is on levothyroxine home dose continued 5. Hypokalemia ?Corrected per protocol -03/07/2021 potassium still low at 3.1 additional potassium given - 03/08/2021; potassium up to 3.5 6. DVT prophylaxis ?SC Lovenox Charges/Coding Visit Charges Inpatient E&M: 43212 [facility] Hosp L3
--- NOTE | 2021-03-08 07:44 | PN.SURG_ITS ---
Subjective Subjective patient sleepy this morning decreased urine output - will give IV bolus appropriate incisional tenderness Objective Data Objective Data Vital Signs: Vital Signs Temp Pulse Resp BP Pulse Ox 98.9 F 83 18 130/86 H 93 03/08/21 04:41 03/08/21 04:41 03/08/21 04:41 03/08/21 04:41 03/08/21 04:41 Oxygen Flow Rate (L/min) 4 Oxygen Delivery Method Room Air Weight: 72.3 kg Body Mass Index (BMI) 25.7 Intake & Output: Intake and Output for Last 24 Hours 03/06/21 03/07/21 03/08/21 23:59 23:59 23:59 Intake Total 2836.25 / 2836.25 2526 / 2526 608.75 / 608.75 Output Total 2475 / 2475 1545 / 1545 430 / 430 Balance 361.25 / 361.25 981 / 981 178.75 / 178.75 Lab / Micro Data Result Diagrams: 03/08/21 06:02 03/08/21 06:02 Labs: Laboratory Results - last 24 hr 03/08/21 06:02: WBC 7.4, RBC 4.51, Hgb 12.8, Hct 40.3, MCV 89.4, MCH 28.4, MCHC 31.8 L, RDW Std Deviation 43.7, RDW Coeff of Marleni 13.3, Plt Count 301, MPV 9.2, Immature Gran % (Auto) 0.400, Neut % (Auto) 81.2 H, Lymph % (Auto) 8.7 L, [place] % (Auto) 9.1, Eos % (Auto) 0.3, Baso % (Auto) 0.3, Absolute Neuts (auto) 6.0, Absolute Lymphs (auto) 0.64 L, Nucleated RBC % 0 03/08/21 06:02: Sodium 140, Potassium 3.5, Chloride 106, Carbon Dioxide 23.0, Anion Gap 11, BUN 19 H, Creatinine 0.73, Estim Creat Clear Calc 39.20, Est GFR (MDRD) Af Amer 97, Est GFR (MDRD) Non-Af 80, BUN/Creatinine Ratio 25.9 H, Glucose 126 H, Calcium 8.3 L Micro: Microbiology 03/02/21 00:50 Urine Catheter - Catheter Urine Culture - Final Escherichia coli 03/01/21 06:36 Nasal Secretion SARS-CoV-2 Antigen (Rapid) - Final Physical Exam Const alert Neck supple Resp normal respiratory effort GI GI Narrative: abdomen - soft, dressing intact BETSEY output is serosanguinous NG output is clear bile Urine output is dark urine Assessment & Plan Assessment/Plan (1) Status post small bowel resection: PLAN: POD#1 s/p small bowel resection, BRANNON for bowel obstruction Plan: continue IV hydration, NG tube decompression, pain medication support IV fluid bolus this morning for low UO Pepcid IV change po meds to IV meds, as patient will not be able to absorb due to postoperative ileus to be expected
[2021-03-08] MEDS: Lactated Ringers 500 ML 999 ML IV (07:47)
[2021-03-08] MEDS: 0.9% Normal Saline 1,000 ML 150 ML IV ×3 (07:47→20:48)
[2021-03-08] MEDS: Menthol/Lanolin/Calamine/Znox 113 GM Tube 1 APPLIC TOPICAL ×2 (09:21→20:52)
[2021-03-08] MEDS: Famotidine 200 MG/20 ML MDV 20 MG in 0.9% Normal Saline (Pres. free 8 ML 300 MG IV ×2 (09:23→20:49)
[2021-03-08] MEDS: Neomycin/Polymyxin/Dexameth 5ML OPTH.BTL 1 DRP EACH EYE ×2 (12:04→21:20)
[2021-03-08] MEDS: Erythromycin Base 1 OPTH.TUBE 1 APPLIC RIGHT EYE (20:53)
[2021-03-09] VITALS (10 sets, daily range): BP systolic 145–166; BP diastolic 56–83; PULSE 66–71; RESP 18; TEMP 36.4–37; O2SAT 94–99
[2021-03-09] MEDS: 0.9% Normal Saline 1,000 ML 150 ML IV ×3 (03:24→17:46)
[2021-03-09] MEDS: hydrALAZINE 20 MG/ML Vial 10 MG IV (03:45)
[2021-03-09 05:05] LABS: Absolute Lymphocyte Count 1.09 X10^3/uL (0.83-4.51); Basophil# 0.02 X10^3/uL; Basophil% 0.3 % (0-1); Eosinophil# 0.01 X10^3/uL; Eosinophils% 0.1 % (0-5); Hematocrit 34.3 % (37-47); Hemoglobin 10.6 g/dL (12.0-15.0); Lymphocyte # 1.09 X10^3/ul (0.83-4.51); Lymphocyte % 13.9 % (19-41); Mean Corp Hgb Conc 30.9 g/dL (32-36); Mean Corpuscular Hgb 28.1 pg (27.0-32.0); Mean Platelet Vol. 9.7 fl (6.2-12.0); Monocyte# 0.69 X10^3/uL; Monocyte% 8.8 % (0-10); NRBC Flagged by Analyzer 0 % (0-5); Neutrophil # 6.01 X10^3/uL (2.7-7.7); Neutrophil % 76.3 % (47-70); Platelet Count 239 K/mm3 (150-450); RBC Distribution Width CV 13.8 % (11.6-14.6); RBC Distribution Width SD 45.4 fl (35.1-43.9); Red Blood Count 3.77 M/mm3 (4.2-5.4); White Blood Count 7.9 K/mm3 (4.4-11.0)
[2021-03-09 05:30] LABS: Anion Gap 12 (5-15); BUN 21 mg/dL (7-18); Calcium,Total 8.4 mg/dL (8.5-10.1); Chloride 112 mmol/L (98-107); Creatinine, Serum 0.58 mg/dL (0.55-1.02); EST Glomerular Filtration Rate 104 mL/min (>60); Est Glom Filt Rate - Afr Amer 126 mL/min (>60); Glucose 131 mg/dL (74-106); Potassium 3.3 mmol/L (3.5-5.1); Sodium Level 144 mmol/L (136-145)
--- NOTE | 2021-03-09 06:57 | PCM.PN.SRG ---
Subjective Subjective seemingly more loathe to help herself, not wanting to move, even to reach by the bedside table to place a mouth swab in her mouth Objective Data Objective Data Vital Signs: Vital Signs Temp Pulse Resp BP Pulse Ox 97.5 F L 66 18 149/63 H 99 03/09/21 03:31 03/09/21 03:45 03/09/21 03:31 03/09/21 04:05 03/09/21 03:31 Oxygen Flow Rate (L/min) 4 Oxygen Delivery Method Room Air Weight: 72 kg Body Mass Index (BMI) 25.7 Intake & Output: Intake and Output for Last 24 Hours 03/07/21 03/08/21 03/09/21 23:59 23:59 23:59 Intake Total 2526 / 2526 4846.00 / 4846.00 1010 / 1010 Output Total 1545 / 1545 1280 / 1280 Balance 981 / 981 3566.00 / 3566.00 1010 / 1010 Lab / Micro Data Result Diagrams: 03/09/21 04:56 03/09/21 04:56 Labs: Laboratory Results - last 24 hr 03/09/21 04:56: WBC 7.9, RBC 3.77 L, Hgb 10.6 L, Hct 34.3 L, MCV 91.0, MCH 28.1, MCHC 30.9 L, RDW Std Deviation 45.4 H, RDW Coeff of Marleni 13.8, Plt Count 239, MPV 9.7, Immature Gran % (Auto) 0.600, Neut % (Auto) 76.3 H, Lymph % (Auto) 13.9 L, [place] % (Auto) 8.8, Eos % (Auto) 0.1, Baso % (Auto) 0.3, Absolute Neuts (auto) 6.0, Absolute Lymphs (auto) 1.09, Nucleated RBC % 0 03/09/21 04:56: Sodium 144, Potassium 3.3 L, Chloride 112 H, Carbon Dioxide 20.0 L, Anion Gap 12, BUN 21 H, Creatinine 0.58, Estim Creat Clear Calc 39.20, Est GFR (MDRD) Af Amer 126, Est GFR (MDRD) Non-Af 104, BUN/Creatinine Ratio 36.0 H, Glucose 131 H, Calcium 8.4 L Micro: Microbiology 03/02/21 00:50 Urine Catheter - Catheter Urine Culture - Final Escherichia coli 03/01/21 06:36 Nasal Secretion SARS-CoV-2 Antigen (Rapid) - Final Physical Exam Const alert Neck supple Resp normal respiratory effort Effort and Inspection: able to speak in complete sentences GI GI Narrative: abdomen is soft and benign, appropriate incisional tenderness dressings intact, BETSEY output serosanguinous Urine output is less dark Assessment & Plan Assessment/Plan (1) Status post small bowel resection: PLAN: POD#2 s/p small bowel resection, lysis of adhesions Patient seems to regressing, doesn't seem motivated to do even the simple things for herself - she will require alot of rehab denies abdominal pain all her parameters look good - urine less concentrated and increased output, VSS, BETSEY output is serosanguinous turning more serous
--- NOTE | 2021-03-09 07:48 | PN.HOSP_ITS ---
Subjective Subjective Postoperative day 2. Patient pain is tolerable. She is currently up in a chair. Tolerating ice chips. Objective Data Objective Data Vital Signs: Vital Signs Temp Pulse Resp BP Pulse Ox 97.5 F L 66 18 149/63 H 99 03/09/21 03:31 03/09/21 03:45 03/09/21 03:31 03/09/21 04:05 03/09/21 03:31 Oxygen Flow Rate (L/min) 4 Oxygen Delivery Method Room Air Weight: 72 kg Body Mass Index (BMI) 25.7 Intake & Output: Intake and Output for Last 24 Hours 03/07/21 03/08/21 03/09/21 23:59 23:59 23:59 Intake Total 2526 / 2526 4846.00 / 4846.00 1035 / 1035 Output Total 1545 / 1545 1280 / 1280 Balance 981 / 981 3566.00 / 3566.00 1010 / 1010 Lab / Micro Data Result Diagrams: 03/09/21 04:56 03/09/21 04:56 Labs: Laboratory Results - last 24 hr 03/09/21 04:56: WBC 7.9, RBC 3.77 L, Hgb 10.6 L, Hct 34.3 L, MCV 91.0, MCH 28.1, MCHC 30.9 L, RDW Std Deviation 45.4 H, RDW Coeff of Marleni 13.8, Plt Count 239, MPV 9.7, Immature Gran % (Auto) 0.600, Neut % (Auto) 76.3 H, Lymph % (Auto) 13.9 L, [place] % (Auto) 8.8, Eos % (Auto) 0.1, Baso % (Auto) 0.3, Absolute Neuts (auto) 6.0, Absolute Lymphs (auto) 1.09, Nucleated RBC % 0 03/09/21 04:56: Sodium 144, Potassium 3.3 L, Chloride 112 H, Carbon Dioxide 20.0 L, Anion Gap 12, BUN 21 H, Creatinine 0.58, Estim Creat Clear Calc 39.20, Est GFR (MDRD) Af Amer 126, Est GFR (MDRD) Non-Af 104, BUN/Creatinine Ratio 36.0 H, Glucose 131 H, Calcium 8.4 L Micro: Microbiology 03/02/21 00:50 Urine Catheter - Catheter Urine Culture - Final Escherichia coli 03/01/21 06:36 Nasal Secretion SARS-CoV-2 Antigen (Rapid) - Final Physical Exam Narrative GENERAL: Frail looking HEENT: Atraumatic; NG tube in place EYES; Anicteric, Normal Conjunctiva NECK; supple, normal thyroid, RESPIRATORY: Diminished to auscultation CARDIOVASCULAR: Regular S1 S2, GI: Lower abdominal incision CDI : No Renal angle tenderness; EXTREMITIES: No edema, no clubbing, MUSCULOSKELETAL: no muscle waisting NEURO: Awake; no lateralizing signs. SKIN: No Rash PSYCH; Flat affect Assessment & Plan Assessment/Plan (1) Partial small bowel obstruction: PLAN: Patient is an 85-year-old lady admitted with abdominal pain. Diagnosed with partial small bowel obstruction admitted to regular nursing floor for further management 1. Partial small bowel obstruction ?Managed conservatively. Resolved patient however complains of pain following initiation of oral diet -03/07/2021;Patient seen did complain of some abdominal discomfort with eating and apparently had a bout of emesis. Case discussed with Dr. Dillon with general surgery plan for patient to undergo Gastrografin imaging studies. ?03/08/2021; Patient underwent exploratory laparotomy with small bowel resection and lysis of adhesion following failure of conservative management for small bowel obstruction on 03/07/[address] Alfreda Dillon -03/09/2021ostoperative day 2. Patient pain is tolerable. She is currently up in a chair. Tolerating ice chips. 2. Hypertension -Blood pressure control not optimal, did continue home meds with subsequent adjustments of BP meds. Also added as needed hydralazine. ?03/07/2021; blood pressure control still not optimal added amlodipine 3. Diabetes mellitus type 2 ?Placed on Accu-Cheks before meals and at bedtime with sliding scale coverage 4. Hypothyroidism - Patient is on levothyroxine home dose continued 5. Hypokalemia ?Corrected per protocol -03/07/2021 potassium still low at 3.1 additional potassium given - 03/08/2021; potassium up to 3.5 -03/09/2021 potassium down to 3.3 additional potassium given repeat labs ordered for a.m. for monitoring 6. DVT prophylaxis ?SC Lovenox Charges/Coding Visit Charges Inpatient E&M: 41069 Subs Hosp L2
[2021-03-09] MEDS: Potassium Chloride 10mEq/100mL 10 MEQ/100 ML IV.SOLN. 100 MEQ IV BOLUS ×4 (08:45→11:47)
[2021-03-09] MEDS: Neomycin/Polymyxin/Dexameth 5ML OPTH.BTL 1 DRP EACH EYE ×2 (09:43→22:02)
[2021-03-09] MEDS: Venlafaxine HCl 75 MG Tablet PO ×2 (09:44→22:02)
[2021-03-09] MEDS: Multivitamin (Healthy Eyes) Capsule 1 CAP PO (09:44)
[2021-03-09] MEDS: amLODIPine 10 MG Tablet PO (09:44)
[2021-03-09] MEDS: Lisinopril 20 MG Tablet PO ×2 (09:44→22:03)
[2021-03-09] MEDS: Famotidine 200 MG/20 ML MDV 20 MG in 0.9% Normal Saline (Pres. free 8 ML 300 MG IV ×2 (09:46→22:03)
[2021-03-09] MEDS: Menthol/Lanolin/Calamine/Znox 113 GM Tube 1 APPLIC TOPICAL ×2 (10:45→22:01)
--- NOTE | 2021-03-09 14:57 | CASEMGMT ---
VICENTA MARIE in to pt room. Pt lying in bed with eyes closed in no distress. Attempted to discuss dc planning. Pt states she was just going to sleep and requests VICENTA MARIE to check back.
[2021-03-09] MEDS: Erythromycin Base 1 OPTH.TUBE 1 APPLIC RIGHT EYE (22:02)
[2021-03-09] MEDS: LORazepam 2 MG/ML Syringe 0.5 MG IV (23:02)
[2021-03-10] MEDS: 0.9% Normal Saline 1,000 ML 150 ML IV ×4 (00:31→20:11)
[2021-03-10 03:36] VITALS: BP 158/64; PULSE 71; RESP 18; TEMP 36.6; O2SAT 96
[2021-03-10] MEDS: Levothyroxine 88 MCG Tablet PO (06:16)
--- NOTE | 2021-03-10 07:15 | PCM.PN.SRG ---
Subjective Subjective had ambulated yesterday has not passed gas yet Objective Data Objective Data Vital Signs: Vital Signs Temp Pulse Resp BP Pulse Ox 97.8 F 71 18 158/64 H 96 03/10/21 03:36 03/10/21 03:36 03/10/21 03:36 03/10/21 03:36 03/10/21 03:36 Oxygen Flow Rate (L/min) 4 Oxygen Delivery Method Room Air Weight: 78 kg Body Mass Index (BMI) 25.7 Intake & Output: Intake and Output for Last 24 Hours 03/08/21 03/09/21 03/10/21 23:59 23:59 23:59 Intake Total 4846.00 / 4846.00 3756.67 / 3756.67 1180 / 1180 Output Total 1280 / 1280 1075 / 1075 800 / 800 Balance 3566.00 / 3566.00 2681.67 / 2681.67 380 / 380 Lab / Micro Data Result Diagrams: 03/09/21 04:56 03/09/21 04:56 Micro: Microbiology 03/02/21 00:50 Urine Catheter - Catheter Urine Culture - Final Escherichia coli 03/01/21 06:36 Nasal Secretion SARS-CoV-2 Antigen (Rapid) - Final Physical Exam Const alert Neck supple Resp normal respiratory effort Effort and Inspection: able to speak in complete sentences GI GI Narrative: abdomen is soft and benign BETSEY output is serous Assessment & Plan Assessment/Plan (1) Status post small bowel resection: PLAN: POD#3 s/p small bowel resection, [place] Plan: continue encourage ambulation, incentive spirometry - patient will be slow to recovery due to her deconditioning and age and seemingly reluctance to do anything for herself
[2021-03-10] MEDS: Menthol/Lanolin/Calamine/Znox 113 GM Tube 1 APPLIC TOPICAL ×2 (07:33→22:17)
[2021-03-10] MEDS: Neomycin/Polymyxin/Dexameth 5ML OPTH.BTL 1 DRP EACH EYE ×2 (07:35→22:14)
[2021-03-10 08:13] VITALS: PULSE 67
--- NOTE | 2021-03-10 09:45 | CASEMGMT ---
RN CM in to pt room. Pt sitting up in chair. Discussed dc planning with patient. Pt states she does not feel strong enough to go home at this point. She is agreeable to having some s/t therapy post hospitalization. Pt prefers [facility]. Notified Deshawn DAVENPORTW.
[2021-03-10 10:00] VITALS: BP 153/85; PULSE 67; RESP 18; TEMP 36.6; O2SAT 96
[2021-03-10] MEDS: Lisinopril 20 MG Tablet PO ×2 (10:03→22:19)
[2021-03-10] MEDS: Famotidine 200 MG/20 ML MDV 20 MG in 0.9% Normal Saline (Pres. free 8 ML 300 MG IV ×2 (10:03→22:10)
[2021-03-10] MEDS: amLODIPine 10 MG Tablet PO (10:04)
[2021-03-10] MEDS: Morphine 4 MG/ML Syringe IV (10:13)
--- NOTE | 2021-03-10 10:49 | PN.HOSP_ITS ---
Subjective Subjective Seen complaining of left lower quadrant abdominal pain. NG tube with bile- stained material Objective Data Objective Data Vital Signs: Vital Signs Temp Pulse Resp BP Pulse Ox 97.8 F 67 18 158/64 H 96 03/10/21 03:36 03/10/21 08:13 03/10/21 03:36 03/10/21 03:36 03/10/21 03:36 Oxygen Flow Rate (L/min) 4 Oxygen Delivery Method Room Air Weight: 78 kg Body Mass Index (BMI) 25.7 Intake & Output: Intake and Output for Last 24 Hours 03/08/21 03/09/21 03/10/21 23:59 23:59 23:59 Intake Total 4846.00 / 4846.00 3756.67 / 3756.67 2190 / 2190 Output Total 1280 / 1280 1075 / 1075 800 / 800 Balance 3566.00 / 3566.00 2681.67 / 2681.67 1390 / 1390 Lab / Micro Data Result Diagrams: 03/09/21 04:56 03/09/21 04:56 Micro: Microbiology 03/02/21 00:50 Urine Catheter - Catheter Urine Culture - Final Escherichia coli 03/01/21 06:36 Nasal Secretion SARS-CoV-2 Antigen (Rapid) - Final Physical Exam Narrative GENERAL: Frail looking HEENT: Atraumatic; NG tube in place EYES; Anicteric, Normal Conjunctiva NECK; supple, normal thyroid, RESPIRATORY: Diminished to auscultation CARDIOVASCULAR: Regular S1 S2, GI: Lower abdominal incision CDI : No Renal angle tenderness; EXTREMITIES: No edema, no clubbing, MUSCULOSKELETAL: no muscle waisting NEURO: Awake; no lateralizing signs. SKIN: No Rash PSYCH; Flat affect Assessment & Plan Assessment/Plan (1) Partial small bowel obstruction: PLAN: Patient is an 85-year-old lady admitted with abdominal pain. Diagnosed with partial small bowel obstruction admitted to regular nursing floor for further management 1. Partial small bowel obstruction ?Managed conservatively. Resolved patient however complains of pain following initiation of oral diet -03/07/2021;Patient seen did complain of some abdominal discomfort with eating and apparently had a bout of emesis. Case discussed with Dr. Dillon with general surgery plan for patient to undergo Gastrografin imaging studies. ?03/08/2021; Patient underwent exploratory laparotomy with small bowel resection and lysis of adhesion following failure of conservative management for small bowel obstruction on 03/07/[address] Alfreda Dillon -03/09/2021ostoperative day 2. Patient pain is tolerable. She is currently up in a chair. Tolerating ice chips. -03/10/2021een complaining of left lower quadrant abdominal pain. NG tube with bile-stained material 2. Hypertension -Blood pressure control not optimal, did continue home meds with subsequent adjustments of BP meds. Also added as needed hydralazine. ?03/07/2021; blood pressure control still not optimal added amlodipine 3. Diabetes mellitus type 2 ?Placed on Accu-Cheks before meals and at bedtime with sliding scale coverage 4. Hypothyroidism - Patient is on levothyroxine home dose continued 5. Hypokalemia ?Corrected per protocol -03/07/2021 potassium still low at 3.1 additional potassium given - 03/08/2021; potassium up to 3.5 -03/09/2021 potassium down to 3.3 additional potassium given repeat labs ordered for a.m. for monitoring 6. DVT prophylaxis ?SC Lovenox Charges/Coding Visit Charges Inpatient E&M: 89058 Subs Hosp L2
--- NOTE | 2021-03-10 10:59 | CASEMGMT ---
Social Work Note SW received referral for SNF placement and pt's preferred provider is [facility]. SW placed a call to Chanda at [facility] and left message regarding referral. SW faxed referral to [facility]. Plan: [facility] pending acceptance Ruth Martinez MSW, [employer]
--- NOTE | 2021-03-10 11:39 | CASEMGMT ---
Addendum entered by Ruth Martinez 03/10/21 14:54: IRINA received message from Chanda at [facility] stating they can accept pt next week. SW in to speak with pt. SW updated pt that [facility] can accept pt when she is medically cleared, likely next week. Pt states understanding. Plan: [facility] when medically [facility]. [facility] is not taking weekend admissions, pt cannot discharge to [facility] until next week. Original Note: Social Work Note IRINA received call from Chanda at [facility] stating she received referral and sent it to the team to review. Chanda confirms that [facility] is still not taking weekend admissions. IRINA informed [facility] that pt will likely not be ready over the weekend as pt has NG tube still in. Chanda states understanding, will let this worker know if [facility] can accept pt or not. Plan: [facility] pending acceptance Ruth Martinez MDS RN, [employer] MA[employer]GER
[2021-03-10 14:13] VITALS: BP 144/66; PULSE 95; RESP 18; TEMP 36.7; O2SAT 95
[2021-03-10 17:00] VITALS: PULSE 70
[2021-03-10 20:08] VITALS: BP 137/62; PULSE 64; RESP 16; TEMP 36.7; O2SAT 96
[2021-03-10] MEDS: LORazepam 2 MG/ML Syringe 0.5 MG IV (22:10)
[2021-03-10] MEDS: 0.9% Saline Lock 10 ML Syringe IV (22:10)
[2021-03-10] MEDS: Erythromycin Base 1 OPTH.TUBE 1 APPLIC RIGHT EYE (22:14)
[2021-03-10] MEDS: Venlafaxine HCl 75 MG Tablet PO (22:19)
[2021-03-11] MEDS: 0.9% Normal Saline 1,000 ML 150 ML IV ×4 (03:04→23:31)
[2021-03-11 03:08] VITALS: BP 153/70; PULSE 70; RESP 18; TEMP 36.6; O2SAT 97
[2021-03-11] MEDS: Levothyroxine 88 MCG Tablet PO (06:36)
[2021-03-11] MEDS: LORazepam 2 MG/ML Syringe 0.5 MG IV (06:41)
--- NOTE | 2021-03-11 07:56 | PCM.PN.HOSP ---
Subjective Subjective Postoperative day 4. Patient NG tube remains in place.. Hemoglobin down to 10.6 Objective Data Objective Data Vital Signs: Vital Signs Temp Pulse Resp BP Pulse Ox 97.8 F 70 18 153/70 H 97 03/11/21 03:08 03/11/21 03:08 03/11/21 03:08 03/11/21 03:08 03/11/21 03:08 Oxygen Flow Rate (L/min) 4 Oxygen Delivery Method Room Air Weight: 74.5 kg Body Mass Index (BMI) 25.7 Intake & Output: Intake and Output for Last 24 Hours 03/09/21 03/10/21 03/11/21 23:59 23:59 23:59 Intake Total 3756.67 / 3756.67 4950.5 / 4950.5 1040 / 1040 Output Total 1075 / 1075 2080 / 2080 700 / 700 Balance 2681.67 / 2681.67 2870.5 / 2870.5 340 / 340 Lab / Micro Data Result Diagrams: 03/09/21 04:56 03/09/21 04:56 Micro: Microbiology 03/02/21 00:50 Urine Catheter - Catheter Urine Culture - Final Escherichia coli 03/01/21 06:36 Nasal Secretion SARS-CoV-2 Antigen (Rapid) - Final Physical Exam Narrative GENERAL: Frail looking HEENT: Atraumatic; NG tube in place EYES; Anicteric, Normal Conjunctiva NECK; supple, normal thyroid, RESPIRATORY: Diminished to auscultation CARDIOVASCULAR: Regular S1 S2, GI: Lower abdominal incision CDI : No Renal angle tenderness; EXTREMITIES: No edema, no clubbing, MUSCULOSKELETAL: no muscle waisting NEURO: Awake; no lateralizing signs. SKIN: No Rash PSYCH; Flat affect Assessment & Plan Assessment/Plan (1) Partial small bowel obstruction: PLAN: Patient is an 85-year-old lady admitted with abdominal pain. Diagnosed with partial small bowel obstruction admitted to regular nursing floor for further management 1. Partial small bowel obstruction ?Managed conservatively. Resolved patient however complains of pain following initiation of oral diet -03/07/2021;Patient seen did complain of some abdominal discomfort with eating and apparently had a bout of emesis. Case discussed with Dr. Dillon with general surgery plan for patient to undergo Gastrografin imaging studies. ?03/08/2021; Patient underwent exploratory laparotomy with small bowel resection and lysis of adhesion following failure of conservative management for small bowel obstruction on 03/07/[address] Alfreda Dillon -03/09/2021ostoperative day 2. Patient pain is tolerable. She is currently up in a chair. Tolerating ice chips. -03/10/2021een complaining of left lower quadrant abdominal pain. NG tube with bile-stained material -03/11/2021;Postoperative day 4. Patient NG tube remains in place 2. Hypertension -Blood pressure control not optimal, did continue home meds with subsequent adjustments of BP meds. Also added as needed hydralazine. ?03/07/2021; blood pressure control still not optimal added amlodipine 3. Diabetes mellitus type 2 ?Placed on Accu-Cheks before meals and at bedtime with sliding scale coverage 4. Hypothyroidism - Patient is on levothyroxine home dose continued 5. Hypokalemia ?Corrected per protocol -03/07/2021 potassium still low at 3.1 additional potassium given - 03/08/2021; potassium up to 3.5 -03/09/2021 potassium down to 3.3 additional potassium given repeat labs ordered for a.m. for monitoring 6. DVT prophylaxis ?SC Lovenox 7. Anemia - Secondary to chronic disorder monitoring H&H and transfuse if patient becomes symptomatic or hemoglobin falls below 7 Charges/Coding Visit Charges Inpatient E&M: 94157 Subs Hosp L2
[2021-03-11 08:04] VITALS: BP 175/74; PULSE 74
[2021-03-11] MEDS: hydrALAZINE 20 MG/ML Vial 10 MG IV (08:04)
[2021-03-11] MEDS: 0.9% Saline Lock 10 ML Syringe IV (08:05)
[2021-03-11 08:06] VITALS: BP 175/74; PULSE 74; RESP 18; TEMP 37; O2SAT 99
[2021-03-11] MEDS: Potassium Chloride 10mEq/100mL 10 MEQ/100 ML IV.SOLN. 100 MEQ IV BOLUS ×4 (10:09→13:14)
[2021-03-11] MEDS: Menthol/Lanolin/Calamine/Znox 113 GM Tube 1 APPLIC TOPICAL ×2 (10:12→20:54)
[2021-03-11] MEDS: Multivitamin (Healthy Eyes) Capsule 1 CAP PO (10:12)
[2021-03-11] MEDS: Neomycin/Polymyxin/Dexameth 5ML OPTH.BTL 1 DRP EACH EYE ×2 (10:12→20:51)
[2021-03-11] MEDS: Venlafaxine HCl 75 MG Tablet PO ×2 (10:12→20:54)
[2021-03-11] MEDS: Lisinopril 20 MG Tablet PO ×2 (10:13→20:54)
[2021-03-11] MEDS: amLODIPine 10 MG Tablet PO (10:13)
[2021-03-11 10:38] VITALS: BP 145/64; PULSE 76; RESP 18; TEMP 37; O2SAT 99
[2021-03-11] MEDS: Famotidine 200 MG/20 ML MDV 20 MG in 0.9% Normal Saline (Pres. free 8 ML 300 MG IV ×2 (10:48→20:54)
--- NOTE | 2021-03-11 11:22 | CASEMGMT ---
Per Dr. Dillon, pt will be medically ready for SNF on Tuesday 03/13. SStpamela RN CM
--- NOTE | 2021-03-11 11:25 | PN.SURG_ITS ---
Subjective Subjective patient passing flatus very loathe to do activities of daily living for herself, wants you to give her a straw to drink water and hold the cup to her mouth rather than reaching for the cup herself on the table by her bedside and drinking from it minimal abdominal pain, only incisional tenderness Objective Data Objective Data Vital Signs: Vital Signs Temp Pulse Resp BP Pulse Ox 98.6 F 76 18 145/64 H 99 03/11/21 10:38 03/11/21 10:38 03/11/21 10:38 03/11/21 10:38 03/11/21 10:38 Oxygen Flow Rate (L/min) 4 Oxygen Delivery Method Room Air Weight: 74.5 kg Body Mass Index (BMI) 25.7 Intake & Output: Intake and Output for Last 24 Hours 03/09/21 03/10/21 03/11/21 23:59 23:59 23:59 Intake Total 3756.67 / 3756.67 4950.5 / 4950.5 2140 / 2140 Output Total 1075 / 1075 2080 / 2080 700 / 700 Balance 2681.67 / 2681.67 2870.5 / 2870.5 1440 / 1440 Lab / Micro Data Result Diagrams: 03/09/21 04:56 03/09/21 04:56 Micro: Microbiology 03/02/21 00:50 Urine Catheter - Catheter Urine Culture - Final Escherichia coli 03/01/21 06:36 Nasal Secretion SARS-CoV-2 Antigen (Rapid) - Final Physical Exam Const alert Resp normal respiratory effort Effort and Inspection: able to speak in complete sentences GI GI Narrative: abdomen is soft and benign incision is clean and dry, BETSEY output is serous - minimal output over the night Assessment & Plan Assessment/Plan (1) Status post small bowel resection: PLAN: Patient is POD#4 s/p small bowel resection She is very much deconditioned and also seems very loathe to do anything for herself and then she is told that she will be discharged to a senior living and questions why she can't go home by herself and when explained that she can't (and won't) do ADL for herself in the hospital, then she asks the question over again She will be started on a clear liquid diet she should be doing PT/OT she can probably be discharged to senior living on Saturday, I will remove BETSEY drain prior to discharge
[2021-03-11 14:14] VITALS: BP 136/63; PULSE 76; RESP 18; TEMP 36.8; O2SAT 99
--- NOTE | 2021-03-11 19:21 | CASEMGMT ---
IRINA was advised by RN CYNTHIA that per MD patient can be discharged Saturday. Zoila RANDLE
[2021-03-11 20:43] VITALS: BP 156/63; PULSE 85; RESP 18; TEMP 36.7; O2SAT 98
[2021-03-11] MEDS: Erythromycin Base 1 OPTH.TUBE 1 APPLIC RIGHT EYE (20:51)
[2021-03-12] VITALS (7 sets, daily range): BP systolic 136–168; BP diastolic 70–82; PULSE 73–78; RESP 18; TEMP 36.6–37; O2SAT 94–98
[2021-03-12] MEDS: hydrALAZINE 20 MG/ML Vial 10 MG IV (03:32)
[2021-03-12] MEDS: 0.9% Normal Saline 1,000 ML 150 ML IV (05:07)
[2021-03-12] MEDS: LORazepam 2 MG/ML Syringe 0.5 MG IV (05:08)
[2021-03-12] MEDS: Levothyroxine 88 MCG Tablet PO (05:08)
--- NOTE | 2021-03-12 07:36 | PCM.PN.HOSP ---
Subjective Subjective Patient seen NG tube out. Patient admits to passing some gas. Objective Data Objective Data Vital Signs: Vital Signs Temp Pulse Resp BP Pulse Ox 98.6 F 73 18 139/70 H 96 03/12/21 03:25 03/12/21 03:32 03/12/21 03:25 03/12/21 04:57 03/12/21 03:25 Oxygen Flow Rate (L/min) 4 Oxygen Delivery Method Room Air Weight: 73.8 kg Body Mass Index (BMI) 25.7 Intake & Output: Intake and Output for Last 24 Hours 03/10/21 03/11/21 03/12/21 23:59 23:59 23:59 Intake Total 4950.5 / 4950.5 4847.5 / 4847.5 840 / 840 Output Total 2080 / 2080 2545 / 2545 1200 / 1200 Balance 2870.5 / 2870.5 2302.5 / 2302.5 -360 / -360 Lab / Micro Data Result Diagrams: 03/12/21 08:27 03/12/21 08:27 Micro: Microbiology 03/02/21 00:50 Urine Catheter - Catheter Urine Culture - Final Escherichia coli 03/01/21 06:36 Nasal Secretion SARS-CoV-2 Antigen (Rapid) - Final Physical Exam Narrative GENERAL: Frail looking HEENT: Atraumatic; NG tube in place EYES; Anicteric, Normal Conjunctiva NECK; supple, normal thyroid, RESPIRATORY: Diminished to auscultation CARDIOVASCULAR: Regular S1 S2, GI: Lower abdominal incision CDI : No Renal angle tenderness; EXTREMITIES: No edema, no clubbing, MUSCULOSKELETAL: no muscle waisting NEURO: Awake; no lateralizing signs. SKIN: No Rash PSYCH; Flat affect Assessment & Plan Assessment/Plan (1) Partial small bowel obstruction: PLAN: Patient is an 85-year-old lady admitted with abdominal pain. Diagnosed with partial small bowel obstruction admitted to regular nursing floor for further management 1. Partial small bowel obstruction ?Managed conservatively. Resolved patient however complains of pain following initiation of oral diet -03/07/2021;Patient seen did complain of some abdominal discomfort with eating and apparently had a bout of emesis. Case discussed with Dr. Dillon with general surgery plan for patient to undergo Gastrografin imaging studies. ?03/08/2021; Patient underwent exploratory laparotomy with small bowel resection and lysis of adhesion following failure of conservative management for small bowel obstruction on 03/07/[address] Alfreda Dillon -03/09/2021ostoperative day 2. Patient pain is tolerable. She is currently up in a chair. Tolerating ice chips. -03/10/2021een complaining of left lower quadrant abdominal pain. NG tube with bile-stained material -03/11/2021;Postoperative day 4. Patient NG tube remains in place 03/12/2021; postoperative day 5 Patient seen NG tube out. Patient admits to passing some gas. 2. Hypertension -Blood pressure control not optimal, did continue home meds with subsequent adjustments of BP meds. Also added as needed hydralazine. ?03/07/2021; blood pressure control still not optimal added amlodipine 3. Diabetes mellitus type 2 ?Placed on Accu-Cheks before meals and at bedtime with sliding scale coverage 4. Hypothyroidism - Patient is on levothyroxine home dose continued 5. Hypokalemia ?Corrected per protocol -03/07/2021 potassium still low at 3.1 additional potassium given - 03/08/2021; potassium up to 3.5 -03/09/2021 potassium down to 3.3 additional potassium given repeat labs ordered for a.m. for monitoring 6. DVT prophylaxis ?SC Lovenox 7. Anemia - Secondary to chronic disorder monitoring H&H and transfuse if patient becomes symptomatic or hemoglobin falls below 7 8. Physical deconditioning - Requested for PT OT eval and social services director to assist with discharge planning Charges/Coding Visit Charges Inpatient E&M: 08437 Subs Hosp L2
[2021-03-12 09:12] LABS: Anion Gap 6 (5-15); BUN 4 mg/dL (7-18); BUN/Creat Ratio 9.5 RATIO (10-20); Chloride 106 mmol/L (98-107); Creatinine, Serum 0.42 mg/dL (0.55-1.02); EST Glomerular Filtration Rate 153 mL/min (>60); Est Glom Filt Rate - Afr Amer 185 mL/min (>60); Glucose 133 mg/dL (74-106); Potassium 2.9 mmol/L (3.5-5.1); Sodium Level 140 mmol/L (136-145)
--- NOTE | 2021-03-12 10:07 | PCM.PN.SRG ---
Subjective Subjective complaint of back pain has small twinges of pain of left side of abdomen passing small amounts of flatus minimally feels hungry Objective Data Objective Data Vital Signs: Vital Signs Temp Pulse Resp BP Pulse Ox 97.9 F 77 18 136/78 H 96 03/12/21 08:51 03/12/21 08:51 03/12/21 08:51 03/12/21 08:51 03/12/21 08:51 Oxygen Flow Rate (L/min) 4 Oxygen Delivery Method Room Air Weight: 73.8 kg Body Mass Index (BMI) 25.7 Intake & Output: Intake and Output for Last 24 Hours 03/10/21 03/11/21 03/12/21 23:59 23:59 23:59 Intake Total 4950.5 / 4950.5 4847.5 / 4847.5 840 / 840 Output Total 2080 / 2080 2545 / 2545 1200 / 1200 Balance 2870.5 / 2870.5 2302.5 / 2302.5 -360 / -360 Lab / Micro Data Result Diagrams: 03/09/21 04:56 03/12/21 08:27 Labs: Laboratory Results - last 24 hr 03/12/21 08:27: Sodium 140, Potassium 2.9 L, Chloride 106, Carbon Dioxide 28.0, Anion Gap 6, BUN 4 L, Creatinine 0.42 L, Estim Creat Clear Calc 39.20, Est GFR (MDRD) Af Amer 185, Est GFR (MDRD) Non-Af 153, BUN/Creatinine Ratio 9.5 L, Glucose 133 H, Calcium 9.0 Micro: Microbiology 03/02/21 00:50 Urine Catheter - Catheter Urine Culture - Final Escherichia coli 03/01/21 06:36 Nasal Secretion SARS-CoV-2 Antigen (Rapid) - Final Physical Exam Const alert General Appearance: cooperative Neck supple Resp normal respiratory effort Effort and Inspection: able to speak in complete sentences GI GI Narrative: abdomen is soft and benign minimal BETSEY output Assessment & Plan Assessment/Plan (1) Status post small bowel resection: PLAN: POD#5 s/p small bowel resection Continue encourage PT/OT from a surgical standpoint, she is ready for discharge, can be advanced diet in nursing rehab gradually will d/c BETSEY prior to discharge
[2021-03-12 10:28] LABS: Absolute Neutrophil Count 3.8 X10^3/uL (2.0-7.7); Basophil# 0.01 X10^3/uL; Basophil% 0.2 % (0-1); Eosinophils% 1.7 % (0-5); Hematocrit 37.1 % (37-47); Hemoglobin 12.3 g/dL (12.0-15.0); Lymphocyte % 23.3 % (19-41); Mean Corp Hgb Conc 33.2 g/dL (32-36); Mean Corpuscular Volume 84.5 fL (81-99); Mean Platelet Vol. 9.7 fl (6.2-12.0); Monocyte# 0.64 X10^3/uL; Monocyte% 10.6 % (0-10); NRBC Flagged by Analyzer 0 % (0-5); Neutrophil # 3.82 X10^3/uL (2.7-7.7); Neutrophil % 63.5 % (47-70); Platelet Count 281 K/mm3 (150-450); RBC Distribution Width CV 13.3 % (11.6-14.6); RBC Distribution Width SD 41.2 fl (35.1-43.9); Red Blood Count 4.39 M/mm3 (4.2-5.4)
[2021-03-12] MEDS: Menthol/Lanolin/Calamine/Znox 113 GM Tube 1 APPLIC TOPICAL ×2 (11:04→21:25)
[2021-03-12] MEDS: Famotidine 200 MG/20 ML MDV 20 MG in 0.9% Normal Saline (Pres. free 8 ML 300 MG IV ×2 (11:04→21:27)
[2021-03-12] MEDS: amLODIPine 10 MG Tablet PO (11:05)
[2021-03-12] MEDS: Lisinopril 20 MG Tablet PO ×2 (11:05→21:27)
[2021-03-12] MEDS: Venlafaxine HCl 75 MG Tablet PO ×2 (11:05→21:27)
[2021-03-12] MEDS: Neomycin/Polymyxin/Dexameth 5ML OPTH.BTL 1 DRP EACH EYE ×2 (11:05→21:25)
[2021-03-12] MEDS: Multivitamin (Healthy Eyes) Capsule 1 CAP PO (11:05)
[2021-03-12] MEDS: Bisacodyl 10 MG Suppository RC (14:59)
[2021-03-12] MEDS: Erythromycin Base 1 OPTH.TUBE 1 APPLIC RIGHT EYE (21:26)
[2021-03-13] MEDS: LORazepam 2 MG/ML Syringe 0.5 MG IV (00:15)
[2021-03-13] MEDS: 0.9% Saline Lock 10 ML Syringe IV ×2 (00:16→22:02)
[2021-03-13 03:24] VITALS: BP 150/71; PULSE 76; RESP 18; TEMP 36.3; O2SAT 99
[2021-03-13] MEDS: Levothyroxine 88 MCG Tablet PO (05:49)
[2021-03-13] MEDS: HYDROcodone Bitartrate/Apap 5/325 Tablet PO (05:49)
[2021-03-13 07:08] LABS: Absolute Lymphocyte Count 1.78 X10^3/uL (0.83-4.51); Basophil# 0.01 X10^3/uL; Basophil% 0.1 % (0-1); Eosinophil# 0.09 X10^3/uL; Eosinophils% 1.2 % (0-5); Hematocrit 34.3 % (37-47); Hemoglobin 11.7 g/dL (12.0-15.0); Lymphocyte # 1.78 X10^3/ul (0.83-4.51); Lymphocyte % 23.8 % (19-41); Mean Corp Hgb Conc 34.1 g/dL (32-36); Mean Corpuscular Hgb 28.7 pg (27.0-32.0); Mean Corpuscular Volume 84.1 fL (81-99); Mean Platelet Vol. 9.7 fl (6.2-12.0); Monocyte# 0.59 X10^3/uL; Monocyte% 7.9 % (0-10); NRBC Flagged by Analyzer 0 % (0-5); Neutrophil # 4.99 X10^3/uL (2.7-7.7); Neutrophil % 66.6 % (47-70); Platelet Count 255 K/mm3 (150-450); RBC Distribution Width CV 13.4 % (11.6-14.6); RBC Distribution Width SD 41.1 fl (35.1-43.9); Red Blood Count 4.08 M/mm3 (4.2-5.4); White Blood Count 7.5 K/mm3 (4.4-11.0)
--- NOTE | 2021-03-13 07:33 | PN.SURG_ITS ---
Subjective Subjective patient passing flatus, is hungry she has minimal abdominal pain Objective Data Objective Data Vital Signs: Vital Signs Temp Pulse Resp BP Pulse Ox 97.3 F L 76 18 150/71 H 99 03/13/21 03:24 03/13/21 03:24 03/13/21 03:24 03/13/21 03:24 03/13/21 03:24 Oxygen Flow Rate (L/min) 4 Oxygen Delivery Method Room Air Weight: 74.933 kg Body Mass Index (BMI) 25.7 Intake & Output: Intake and Output for Last 24 Hours 03/11/21 03/12/21 03/13/21 23:59 23:59 23:59 Intake Total 4847.5 / 4847.5 4225.5 / 4225.5 Output Total 2545 / 2545 4140 / 4140 900 / 900 Balance 2302.5 / 2302.5 85.5 / 85.5 -900 / -900 Lab / Micro Data Result Diagrams: 03/13/21 06:42 03/12/21 08:27 Labs: Laboratory Results - last 24 hr 03/12/21 08:27: WBC 6.0, RBC 4.39, Hgb 12.3, Hct 37.1, MCV 84.5 D, MCH 28.0, MCHC 33.2 D, RDW Std Deviation 41.2, RDW Coeff of Marleni 13.3, Plt Count 281, MPV 9.7, Immature Gran % (Auto) 0.700, Neut % (Auto) 63.5, Lymph % (Auto) 23.3, [place] % (Auto) 10.6 H, Eos % (Auto) 1.7, Baso % (Auto) 0.2, Absolute Neuts (auto) 3.8, Absolute Lymphs (auto) 1.40, Nucleated RBC % 0 03/12/21 08:27: Sodium 140, Potassium 2.9 L, Chloride 106, Carbon Dioxide 28.0, Anion Gap 6, BUN 4 L, Creatinine 0.42 L, Estim Creat Clear Calc 39.20, Est GFR (MDRD) Af Amer 185, Est GFR (MDRD) Non-Af 153, BUN/Creatinine Ratio 9.5 L, Glucose 133 H, Calcium 9.0 03/13/21 06:42: WBC 7.5, RBC 4.08 L, Hgb 11.7 L, Hct 34.3 L, MCV 84.1, MCH 28.7, MCHC 34.1, RDW Std Deviation 41.1, RDW Coeff of Marleni 13.4, Plt Count 255, MPV 9.7, Immature Gran % (Auto) 0.400, Neut % (Auto) 66.6, Lymph % (Auto) 23.8, [place] % (Auto) 7.9, Eos % (Auto) 1.2, Baso % (Auto) 0.1, Absolute Neuts (auto) 5.0, Absolute Lymphs (auto) 1.78, Nucleated RBC % 0 Micro: Microbiology 03/02/21 00:50 Urine Catheter - Catheter Urine Culture - Final Escherichia coli 03/01/21 06:36 Nasal Secretion SARS-CoV-2 Antigen (Rapid) - Final Physical Exam Const alert Neck supple Resp normal respiratory effort Effort and Inspection: able to speak in complete sentences GI GI Narrative: abdomen is soft and benign wound is healing well BETSEY output - minimal and serous - removed without difficulty Assessment & Plan Assessment/Plan (1) Status post small bowel resection: PLAN: POD#6 s/p small bowel resection From surgical standpoint, can be d/c'd to home and diet advanced slowly at [facility]
[2021-03-13 07:37] LABS: Anion Gap 7 (5-15); BUN 4 mg/dL (7-18); BUN/Creat Ratio 10.8 RATIO (10-20); Calcium,Total 8.6 mg/dL (8.5-10.1); Chloride 102 mmol/L (98-107); Creatinine, Serum 0.37 mg/dL (0.55-1.02); EST Glomerular Filtration Rate 177 mL/min (>60); Est Glom Filt Rate - Afr Amer 214 mL/min (>60); Glucose 124 mg/dL (74-106); Potassium 2.6 mmol/L (3.5-5.1); Sodium Level 140 mmol/L (136-145)
[2021-03-13 07:46] VITALS: BP 137/79; PULSE 71; RESP 18; TEMP 36.8; O2SAT 98
[2021-03-13 08:05] VITALS: O2SAT 99
[2021-03-13 08:48] LABS: AST(SGOT) 10 U/L (15-37); Alanine Aminotransfer ALT/SGPT 13 U/L (13-56); Albumin, Serum 2.2 g/dL (3.2-5.0); Alkaline Phosphatase 66 U/L (45-117); Bilirubin, Direct 0.14 mg/dL (0.00-0.30); Globulin 3.8 g/dL (2.2-4.2); Magnesium 1.4 mg/dL (1.6-2.6)
[2021-03-13] MEDS: Menthol/Lanolin/Calamine/Znox 113 GM Tube 1 APPLIC TOPICAL ×2 (10:03→22:04)
[2021-03-13] MEDS: Neomycin/Polymyxin/Dexameth 5ML OPTH.BTL 1 DRP EACH EYE ×2 (10:04→22:03)
[2021-03-13] MEDS: Lisinopril 20 MG Tablet PO ×2 (10:04→22:02)
[2021-03-13] MEDS: Venlafaxine HCl 75 MG Tablet PO ×2 (10:04→22:02)
[2021-03-13] MEDS: amLODIPine 10 MG Tablet PO (10:04)
[2021-03-13] MEDS: Multivitamin (Healthy Eyes) Capsule 1 CAP PO (10:05)
[2021-03-13] MEDS: Famotidine 200 MG/20 ML MDV 20 MG in 0.9% Normal Saline (Pres. free 8 ML 300 MG IV ×2 (10:06→22:02)
--- NOTE | 2021-03-13 10:12 | CASEMGMT ---
Addendum entered by Ruth Martinez 03/13/21 13:34: SW in to speak with pt. SW informed pt that the plan is still WVM when pt is medically cleared. SW asked pt if her daughter is aware of discharge plans. Pt states she was told the other day someone told her daughter Josey but when she called Josey the other day, she didn't know anything about discharge plans. SW informed pt that this worker can call Josey and provide an update. Pt agreeable to this worker calling Josey to update. SW placed a call to pt's daughter Josey and updated her that plan is WVM when pt is medically cleared. Josey states understanding. Plan: WVM skilled when medically cleared Addendum entered by Ruth Martinez 03/13/21 13:20: IRINA placed a call to Chanda at [facility] and updated her that plan is still discharge today. Chanda states she is leaving soon for an appointment and will be out the rest of the day. Chanda states if pt discharges today to all [facility] direct number and ask to speak with Cherie Pelayo and to fax discharge paperwork to [phone]. Original Note: Social Work Note IRINA reviewed chart, pt to discharge to [facility] today. IRINA placed a call to Chanda at [facility] and left message updating her. IRINA faxed updated clinicals to [facility]. Plan: WVM when medically cleared Ruth Martinez RN ADMISSION, PERSONNEL DIRECTOR
[2021-03-13] MEDS: Potassium Chloride 10mEq/100mL 10 MEQ/100 ML IV.SOLN. 100 MEQ IV BOLUS ×4 (10:14→13:39)
--- NOTE | 2021-03-13 11:55 | PCM.PN.HOSP ---
Subjective Subjective Follow-up on partial small bowel obstruction: Patient was seen and examined. She complains of not passing gas. Discussed with nurse, she will be getting a suppository. Discharge is planned today Objective Data Objective Data Vital Signs: Vital Signs Temp Pulse Resp BP Pulse Ox 98.3 F 71 18 137/79 H 99 03/13/21 07:46 03/13/21 07:46 03/13/21 07:46 03/13/21 07:46 03/13/21 08:05 Oxygen Flow Rate (L/min) 4 Oxygen Delivery Method Room Air Weight: 74.933 kg Body Mass Index (BMI) 25.7 Intake & Output: Intake and Output for Last 24 Hours 03/11/21 03/12/21 03/13/21 23:59 23:59 23:59 Intake Total 4847.5 / 4847.5 4225.5 / 4225.5 110 / 110 Output Total 2545 / 2545 4140 / 4140 900 / 900 Balance 2302.5 / 2302.5 85.5 / 85.5 -790 / -790 Lab / Micro Data Result Diagrams: 03/13/21 06:42 03/13/21 06:42 Labs: Laboratory Results - last 24 hr 03/13/21 06:42: WBC 7.5, RBC 4.08 L, Hgb 11.7 L, Hct 34.3 L, MCV 84.1, MCH 28.7, MCHC 34.1, RDW Std Deviation 41.1, RDW Coeff of Marleni 13.4, Plt Count 255, MPV 9.7, Immature Gran % (Auto) 0.400, Neut % (Auto) 66.6, Lymph % (Auto) 23.8, [place] % (Auto) 7.9, Eos % (Auto) 1.2, Baso % (Auto) 0.1, Absolute Neuts (auto) 5.0, Absolute Lymphs (auto) 1.78, Nucleated RBC % 0 03/13/21 06:42: Sodium 140, Potassium 2.6 L*, Chloride 102, Carbon Dioxide 31.0, Anion Gap 7, BUN 4 L, Creatinine 0.37 L, Estim Creat Clear Calc 39.20, Est GFR (MDRD) Af Amer 214, Est GFR (MDRD) Non-Af 177, BUN/Creatinine Ratio 10.8, Glucose 124 H, Calcium 8.6 03/13/21 06:42: Magnesium 1.4 L, Total Bilirubin 0.40, Direct Bilirubin 0.14, AST 10 L, ALT 13, Alkaline Phosphatase 66, Total Protein 6.0 L, Albumin 2.2 L, Globulin 3.8 Micro: Microbiology 03/02/21 00:50 Urine Catheter - Catheter Urine Culture - Final Escherichia coli 03/01/21 06:36 Nasal Secretion SARS-CoV-2 Antigen (Rapid) - Final Physical Exam Narrative General: Alert, Oriented x3, Cooperative, No apparent distress, appears very frail HEENT: Atraumatic, PERRLA, EOMI, Normocephalic Oral: Moist Mucosa Neck: Supple Lungs: Normal air movement, Diminished Cardiovascular: Regular rate, Regular Rhythm, Normal S1, Normal S2, No murmurs Abdomen: Bowel Sounds slightly hypoactive, Soft, Non Tender, Non-Distended, No Hepato-splenomegaly Extremities: No edema Assessment & Plan Assessment/Plan (1) Partial small bowel obstruction: PLAN: 1. Acute partial small bowel obstruction, status post exploratory laparotomy with small bowel resection and lysis of adhesions on 03/08/21 Patient is on a clear liquid diet Follow-up on general surgery recommendations 2. Hypokalemia, hypomagnesemia, replaced, Recheck in a.m. 3. Hypertension, controlled, continue on lisinopril 4. Diabetes mellitus type 2, hold Metformin on hold Continue blood glucose checks with insulin sliding scale 5. Rest of chronic medical conditions including hypothyroidism Continue on levothyroxine Charges/Coding Visit Charges Inpatient E&M: 85103 Subs Hosp L2
[2021-03-13] MEDS: Magnesium Chloride 64 MG Delay Rel.Tablet 128 MG PO (12:58)
--- NOTE | 2021-03-13 15:30 | CASEMGMT ---
Social Work Note SW placed Green Sheet, transport forms, COVID tool on pt's chart in the event pt is able to discharge to [facility] today. Plan: WVM skilled under convalescent stay when medically cleared Ruth Martinez LACE INSPECTOR, ERECTING ENGINEER
[2021-03-13] MEDS: Bisacodyl 10 MG Suppository RC (16:08)
[2021-03-13 16:11] VITALS: BP 121/75; PULSE 72; RESP 18; TEMP 37; O2SAT 98
[2021-03-13 20:02] VITALS: BP 147/64; PULSE 79; RESP 18; TEMP 36.5; O2SAT 98
[2021-03-13] MEDS: Erythromycin Base 1 OPTH.TUBE 1 APPLIC RIGHT EYE (22:03)
[2021-03-13 22:25] LABS: Bedside Glucose 134 mg/dL (70-110)
[2021-03-14 04:00] VITALS: BP 137/70; PULSE 74; RESP 18; TEMP 36.8; O2SAT 97
[2021-03-14] MEDS: Levothyroxine 88 MCG Tablet PO (06:31)
[2021-03-14 06:50] LABS: Bedside Glucose 103 mg/dL (70-110)
[2021-03-14 07:11] LABS: Absolute Lymphocyte Count 1.66 X10^3/uL (0.83-4.51); Basophil# 0.01 X10^3/uL; Basophil% 0.2 % (0-1); Eosinophil# 0.17 X10^3/uL; Eosinophils% 2.7 % (0-5); Hemoglobin 10.3 g/dL (12.0-15.0); Lymphocyte # 1.66 X10^3/ul (0.83-4.51); Lymphocyte % 26.1 % (19-41); Mean Corp Hgb Conc 32.2 g/dL (32-36); Mean Corpuscular Hgb 27.7 pg (27.0-32.0); Mean Platelet Vol. 9.6 fl (6.2-12.0); Monocyte# 0.53 X10^3/uL; Monocyte% 8.3 % (0-10); NRBC Flagged by Analyzer 0 % (0-5); Neutrophil # 3.95 X10^3/uL (2.7-7.7); Neutrophil % 62.2 % (47-70); Platelet Count 246 K/mm3 (150-450); RBC Distribution Width CV 13.5 % (11.6-14.6); RBC Distribution Width SD 42.2 fl (35.1-43.9); Red Blood Count 3.72 M/mm3 (4.2-5.4); White Blood Count 6.4 K/mm3 (4.4-11.0)
[2021-03-14 07:37] LABS: ALB/GLOB Ratio 0.6 RATIO (0.9-2.4); AST(SGOT) 8 U/L (15-37); Alanine Aminotransfer ALT/SGPT 13 U/L (13-56); Albumin, Serum 2.1 g/dL (3.2-5.0); Alkaline Phosphatase 64 U/L (45-117); Anion Gap 6 (5-15); BUN 4 mg/dL (7-18); BUN/Creat Ratio 10.7 RATIO (10-20); Calcium,Total 8.5 mg/dL (8.5-10.1); Chloride 102 mmol/L (98-107); Creatinine, Serum 0.37 mg/dL (0.55-1.02); EST Glomerular Filtration Rate 175 mL/min (>60); Est Glom Filt Rate - Afr Amer 212 mL/min (>60); Globulin 3.5 g/dL (2.2-4.2); Glucose 104 mg/dL (74-106); Magnesium 2.1 mg/dL (1.6-2.6); Potassium 3.1 mmol/L (3.5-5.1); Protein, Total 5.6 g/dL (6.4-8.2); Sodium Level 139 mmol/L (136-145)
[2021-03-14 08:03] VITALS: O2SAT 98
[2021-03-14] MEDS: amLODIPine 10 MG Tablet PO (08:25)
[2021-03-14] MEDS: Lisinopril 20 MG Tablet PO (08:25)
[2021-03-14] MEDS: Menthol/Lanolin/Calamine/Znox 113 GM Tube 1 APPLIC TOPICAL (08:25)
[2021-03-14] MEDS: Venlafaxine HCl 75 MG Tablet PO (08:26)
[2021-03-14] MEDS: Multivitamin (Healthy Eyes) Capsule 1 CAP PO (08:26)
[2021-03-14] MEDS: Neomycin/Polymyxin/Dexameth 5ML OPTH.BTL 1 DRP EACH EYE (08:26)
[2021-03-14 08:30] VITALS: BP 121/60; PULSE 72; RESP 18; TEMP 36.4; O2SAT 98
[2021-03-14] MEDS: Famotidine 200 MG/20 ML MDV 20 MG in 0.9% Normal Saline (Pres. free 8 ML 300 MG IV (08:38)
[2021-03-14] MEDS: 0.9% Saline Lock 10 ML Syringe IV ×2 (08:38→11:51)
--- NOTE | 2021-03-14 10:04 | CASEMGMT ---
Addendum entered by Ruth Martinez 03/14/21 12:23: Pt has discharge in for today. IRINA placed a call to Chanda at [facility] and left message updating her. IRINA completed convalescent 7000 in [facility]. SW to fax discharge paperwork once completed. Original Note: Social Work Note IRINA placed a call to Chanda at [facility] and updated her that pt is still at [facility], hopefully will be ready for discharge today. Chanda states understanding. Plan: [facility] skilled when medically cleared Ruth Martinez DECORATOR CONSULTANT, PHILOSOPHY AND RELIGION INSTRUCTOR
--- NOTE | 2021-03-14 11:37 | PCM.PN.SRG ---
Subjective Subjective patient complaint of left sided pain, suspect constipation, had a large amount of stool in colon intraoperatively passing flatus had bowel movement last night Objective Data Objective Data Vital Signs: Vital Signs Temp Pulse Resp BP Pulse Ox 97.5 F L 72 18 121/60 H 98 03/14/21 08:30 03/14/21 08:30 03/14/21 08:30 03/14/21 08:30 03/14/21 08:30 Oxygen Flow Rate (L/min) 4 Oxygen Delivery Method Room Air Weight: 74.4 kg Body Mass Index (BMI) 25.7 Intake & Output: Intake and Output for Last 24 Hours 03/12/21 03/13/21 03/14/21 23:59 23:59 23:59 Intake Total 4225.5 / 4225.5 2802 / 2802 260 / 260 Output Total 4140 / 4140 2780 / 3280 900 / 900 Balance 85.5 / 85.5 22 / -478 -640 / -640 Lab / Micro Data Result Diagrams: 03/14/21 07:01 03/14/21 07:01 Labs: Laboratory Results - last 24 hr 03/13/21 22:02: POC Glucose 134 H 03/14/21 06:30: POC Glucose 103 03/14/21 07:01: WBC 6.4, RBC 3.72 L, Hgb 10.3 L, Hct 32.0 L, MCV 86.0, MCH 27.7, MCHC 32.2 D, RDW Std Deviation 42.2, RDW Coeff of Marleni 13.5, Plt Count 246, MPV 9.6, Immature Gran % (Auto) 0.500, Neut % (Auto) 62.2, Lymph % (Auto) 26.1, [place] % (Auto) 8.3, Eos % (Auto) 2.7, Baso % (Auto) 0.2, Absolute Neuts (auto) 4.0, Absolute Lymphs (auto) 1.66, Nucleated RBC % 0 03/14/21 07:01: Sodium 139, Potassium 3.1 L, Chloride 102, Carbon Dioxide 31.0, Anion Gap 6, BUN 4 L, Creatinine 0.37 L, Estim Creat Clear Calc 39.20, Est GFR (MDRD) Af Amer 212, Est GFR (MDRD) Non-Af 175, BUN/Creatinine Ratio 10.7, Glucose 104, Calcium 8.5, Magnesium 2.1, Total Bilirubin 0.40, AST 8 L, ALT 13, Alkaline Phosphatase 64, Total Protein 5.6 L, Albumin 2.1 L, Globulin 3.5, Albumin/Globulin Ratio 0.6 L Micro: Microbiology 03/02/21 00:50 Urine Catheter - Catheter Urine Culture - Final Escherichia coli 03/01/21 06:36 Nasal Secretion SARS-CoV-2 Antigen (Rapid) - Final Physical Exam Const alert and oriented x3 General Appearance: cooperative Resp normal respiratory effort Effort and Inspection: able to speak in complete sentences GI GI Narrative: abdomen is soft and benign wound is healing well without evidence of infection Assessment & Plan Assessment/Plan (1) Status post small bowel resection: PLAN: [facility] Follow up with me in 2-4 weeks or as per needed. Skin albert may be removed by nurses in penitentiary
--- NOTE | 2021-03-14 11:40 | DS.PCM_ITS ---
Discharge Summary Date of Admission: 03/01/21 Date of Discharge: 03/14/21 Summary: 85 y/o WF presents with partial small bowel obstruction Had small bowel resection for SBO in September 2020. Initially treated with IV hydration and NG tube decompression. Return of flatus and had bowel movement. Seemed to improve and patient had NG tube removed and then started on regular diet. She did not tolerate this, had recurrence of symptoms. 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 Underwent small bowel resection. Postoperative recovery unremarkable. patient will require physical therapy and occupational therapy due to deconditioning from hospitalizaton and surgery. Patient had required potassium supplementation but this resolved when patient was placed on po diet. Meaningful Use Info Meaningful Use Diagnoses (Choose all that apply): None applicable Discharge Plan Admission Admit Date/Time: 03/01/21 10:37 Attending Provider: Alexandra Mcgrath Primary Care Provider: Da Ocampo Consulting Providers: Charlotte Raman Instructions Additional Instructions / Restrictions: Recommended pain control regimen - May take 600 mg ibuprofen (Motrin) and then in 3-4 hours, may take 650 mg acetaminophen (Tylenol), then in 3-4 hours may take 600 mg ibuprofen, then in 3- 4 hours may take 650 mg acetaminophen and so on for 2-3 days May take narcotic pain medication for pain that is not controlled by above and at night for comfort through the night May shower Do not soak - no tub baths/swimming Ice applied to areas of discomfort may help No lifting/pushing/pulling greater than 20 pounds for a month. Regular diet as tolerated, drink plenty of fluids. Avoid carbonated beverages for a few days as this will cause abdominal bloating and thus discomfort after our surgery. skilled nursing personnel may remove skin albert in about a week and replace with steristrips. otherwise, patient can follow up with me in my office. Office number is If any questions, please call my office at and ask the auger press operator for the general surgery nurses desk Discharge Orders/Prescriptions Prescriptions: New hydrocodone-acetaminophen 5-325 mg tablet 1 tab PO Q8H 5 Days Qty: 15 RF: 0 No Action aspirin 81 MG tablet,chewable 81 mg PO DAILY@0800 RF: 0 metformin 500 MG tablet 500 mg PO TIDCM RF: 0 polyethylene glycol 3350 17 GM powder in packet 17 g PO DAILY PRN (Reason: Constipation) RF: 0 PreserVision AREDS-2 1 EACH capsule 1,000 mg PO DAILY RF: 0 venlafaxine 75 MG tablet 75 mg PO BID RF: 0 diphenhydramine HCl 25 MG capsule 12.5 mg PO QHS PRN (Reason: Insomnia) RF: 0 ascorbic acid (vitamin C) 1,000 mg Capsule, Extended Release 1,000 cap PO DAILY RF: 0 erythromycin 5 mg/gram (0.5 %) Ointment 1 applic RIGHT EYE QHS RF: 0 neomycin-polymyxin B-dexameth Drops,Suspension 1 drp OPHTHALMIC (EYE) BID RF: 0 potassium chloride 20 mEq tablet extended release 40 meq PO DAILY Qty: 30 RF: 0 levothyroxine 88 mcg tablet 88 mcg PO DAILY RF: 0 methenamine mandelate 1 gram tablet 1 g PO BID RF: 0 Referrals / Follow Up: Da Ocampo MD [Primary Care Provider] - Disposition Discharge Orders: Discharge Patient (Routine); Ordered 03/14/21 Ordered By: Dr. Alfreda Dillon
[2021-03-14 11:51] LABS: Bedside Glucose 132 mg/dL (70-110)
[2021-03-14] MEDS: Potassium Chloride Oral Tablet 20 MEQ 40 MEQ PO (11:51)
[2021-03-14] MEDS: Metoclopramide 10 MG/2 ML Vial 5 MG IV (11:51)
--- NOTE | 2021-03-14 12:03 | PCM.TXEXTCAR ---
Diet 03/14/21 11:23 Diet: Regular - General Type of Dietary Supplement:: Ensure Clear Is pt able to select menu?: No Diet Comments: 120ml ensure clear TID w/ meals Wound(s) coccyx: Wound Type: excoriated right elbow: Wound Type: Abrasion abd: Wound Type: Surgical Incision Problem/Diagnosis (1) Status post small bowel resection: Status: Acute Allergies/Procedures Done in Hospital Allergies amoxicillin [From Augmentin] Allergy (Verified 03/01/21 06:08) Itching cefdinir Allergy (Verified 03/01/21 06:08) Rash ciprofloxacin [From Cipro] Allergy (Verified 03/01/21 06:08) Swelling clavulanic acid [From Augmentin] Allergy (Verified 03/01/21 06:08) Itching doxycycline calcium [From Vibramycin] Allergy (Verified 03/01/21 06:08) Unknown doxycycline hyclate [From Vibramycin] Allergy (Verified 03/01/21 06:08) Unknown doxycycline monohydrate [From Vibramycin] Allergy (Verified 03/01/21 06:08) Unknown fluticasone Allergy (Verified 03/01/21 06:08) Unknown influenza virus vaccine, specific [Influenza Virus Vacc,Specific] Allergy (Verified 03/01/21 06:08) Swelling losartan Allergy (Verified 03/01/21 06:08) Angioedema pneumococcal vaccine [Pneumococcal Vaccine] Allergy (Verified 03/01/21 06:08) Rash promethazine HCl [From Phenergan] Allergy (Verified 03/01/21 06:08) Unknown tetracycline [Tetracycline] Allergy (Verified 03/01/21 06:08) Unknown cephalexin [From Keflex] Adverse Reaction (Verified 03/01/21 06:08) Rash metronidazole [From Flagyl] Adverse Reaction (Verified 03/01/21 06:08) Unknown sulfamethoxazole [From Bactrim] Adverse Reaction (Verified 03/01/21 06:08) Rash trimethoprim [From Bactrim] Adverse Reaction (Verified 03/01/21 06:08) Rash Type of Care/Length of Stay Estimated LOS: Convalescent Care Less Than 30 days Type of Care Needed: Skilled Rehab Potential: Good Prognosis: Good Additional Orders/Day of Discharge Day of Discharge: 03/14/21 Discharge Plan Admission Admit Date/Time: 03/01/21 10:37 Attending Provider: Alexandra Mcgrath Primary Care Provider: Da Ocampo Consulting Providers: Charlotte Raman Instructions Additional Instructions / Restrictions: Recommended pain control regimen - May take 600 mg ibuprofen (Motrin) and then in 3-4 hours, may take 650 mg acetaminophen (Tylenol), then in 3-4 hours may take 600 mg ibuprofen, then in 3-4 hours may take 650 mg acetaminophen and so on for 2-3 days May take narcotic pain medication for pain that is not controlled by above and at night for comfort through the night May shower Do not soak - no tub baths/swimming Ice applied to areas of discomfort may help No lifting/pushing/pulling greater than 20 pounds for a month. Regular diet as tolerated, drink plenty of fluids. Avoid carbonated beverages for a few days as this will cause abdominal bloating and thus discomfort after our surgery. detention personnel may remove skin albert in about a week and replace with steristrips. otherwise, patient can follow up with me in my office. Office number is If any questions, please call my office at and ask the dedicated owner operator for the general surgery nurses desk Discharge Orders/Prescriptions Prescriptions: New hydrocodone-acetaminophen 5-325 mg tablet 1 tab PO Q8H 5 Days Qty: 15 RF: 0 No Action aspirin 81 MG tablet,chewable 81 mg PO DAILY@0800 RF: 0 metformin 500 MG tablet 500 mg PO TIDCM RF: 0 polyethylene glycol 3350 17 GM powder in packet 17 g PO DAILY PRN (Reason: Constipation) RF: 0 PreserVision AREDS-2 1 EACH capsule 1,000 mg PO DAILY RF: 0 venlafaxine 75 MG tablet 75 mg PO BID RF: 0 diphenhydramine HCl 25 MG capsule 12.5 mg PO QHS PRN (Reason: Insomnia) RF: 0 ascorbic acid (vitamin C) 1,000 mg Capsule, Extended Release 1,000 cap PO DAILY RF: 0 erythromycin 5 mg/gram (0.5 %) Ointment 1 applic RIGHT EYE QHS RF: 0 neomycin-polymyxin B-dexameth Drops,Suspension 1 drp OPHTHALMIC (EYE) BID RF: 0 potassium chloride 20 mEq tablet extended release 40 meq PO DAILY Qty: 30 RF: 0 levothyroxine 88 mcg tablet 88 mcg PO DAILY RF: 0 methenamine mandelate 1 gram tablet 1 g PO BID RF: 0 Referrals / Follow Up: Da Ocampo MD [Primary Care Provider] - Disposition Discharge Orders: Discharge Patient (Routine); Ordered 03/14/21 Ordered By: Dr. Alfreda Dillon
--- NOTE | 2021-03-14 14:04 | PN.HOSP_ITS ---
Subjective Subjective Follow-up on partial small bowel obstruction: Patient was seen and examined. She complains of not passing gas. Discussed with nurse, she will be getting a suppository. Discharge is planned today Objective Data Objective Data Vital Signs: Vital Signs Temp Pulse Resp BP Pulse Ox 97.5 F L 72 18 121/60 H 98 03/14/21 08:30 03/14/21 08:30 03/14/21 08:30 03/14/21 08:30 03/14/21 08:30 Oxygen Flow Rate (L/min) 4 Oxygen Delivery Method Room Air Weight: 74.4 kg Body Mass Index (BMI) 25.7 Intake & Output: Intake and Output for Last 24 Hours 03/12/21 03/13/21 03/14/21 23:59 23:59 23:59 Intake Total 4225.5 / 4225.5 2802 / 2802 560 / 560 Output Total 4140 / 4140 2780 / 3280 1700 / 1700 Balance 85.5 / 85.5 22 / -478 -1140 / -1140 Lab / Micro Data Result Diagrams: 03/14/21 07:01 03/14/21 07:01 Labs: Laboratory Results - last 24 hr 03/13/21 22:02: POC Glucose 134 H 03/14/21 06:30: POC Glucose 103 03/14/21 07:01: WBC 6.4, RBC 3.72 L, Hgb 10.3 L, Hct 32.0 L, MCV 86.0, MCH 27.7, MCHC 32.2 D, RDW Std Deviation 42.2, RDW Coeff of Marleni 13.5, Plt Count 246, MPV 9.6, Immature Gran % (Auto) 0.500, Neut % (Auto) 62.2, Lymph % (Auto) 26.1, [place] % (Auto) 8.3, Eos % (Auto) 2.7, Baso % (Auto) 0.2, Absolute Neuts (auto) 4.0, Absolute Lymphs (auto) 1.66, Nucleated RBC % 0 03/14/21 07:01: Sodium 139, Potassium 3.1 L, Chloride 102, Carbon Dioxide 31.0, Anion Gap 6, BUN 4 L, Creatinine 0.37 L, Estim Creat Clear Calc 39.20, Est GFR (MDRD) Af Amer 212, Est GFR (MDRD) Non-Af 175, BUN/Creatinine Ratio 10.7, Glucose 104, Calcium 8.5, Magnesium 2.1, Total Bilirubin 0.40, AST 8 L, ALT 13, Alkaline Phosphatase 64, Total Protein 5.6 L, Albumin 2.1 L, Globulin 3.5, Al bumin/Globulin Ratio 0.6 L 03/14/21 11:43: POC Glucose 132 H Micro: Microbiology 03/14/21 11:40 Nasal Secretion SARS-CoV-2 Antigen (Rapid) - Final 03/02/21 00:50 Urine Catheter - Catheter Urine Culture - Final Escherichia coli 03/01/21 06:36 Nasal Secretion SARS-CoV-2 Antigen (Rapid) - Final Physical Exam Narrative General: Alert, Oriented x3, Cooperative, No apparent distress, appears very frail HEENT: Atraumatic, PERRLA, EOMI, Normocephalic Oral: Moist Mucosa Neck: Supple Lungs: Normal air movement, Diminished Cardiovascular: Regular rate, Regular Rhythm, Normal S1, Normal S2, No murmurs Abdomen: Bowel Sounds slightly hypoactive, Soft, Non Tender, Non-Distended, No Hepato-splenomegaly Extremities: No edema Assessment & Plan Assessment/Plan (1) Partial small bowel obstruction: PLAN: 1. Acute partial small bowel obstruction, status post exploratory laparotomy with small bowel resection and lysis of adhesions on 03/08/21 Tolerating diet 2. Hypokalemia, hypomagnesemia, replaced, 3. Hypertension, controlled, continue on lisinopril 4. Diabetes mellitus type 2, hold Metformin on hold Continue blood glucose checks with insulin sliding scale 5. Rest of chronic medical conditions including hypothyroidism Continue on levothyroxine Charges/Coding Visit Charges Inpatient E&M: 02198 Subs Hosp L2
[2021-03-14 14:25] VITALS: BP 107/52; PULSE 74; RESP 18; TEMP 36.7; O2SAT 96
--- NOTE | 2021-03-14 14:30 | CASEMGMT ---
Social Work Note IRINA faxed completed discharge paperwork to [facility] including transfer to extended care facility, signed medication list, any scripts, COVID test/tool, and HENS. Original in SNF folder and copy on pt's chart. IRINA completed convalescent 7000 in [facility]. Original in SNF folder and copy on pt's chart. IRINA spoke with RN, pt to transport via wheelchair van. IRINA accessed trip phlebotomy lab assistant and arranged transportation via wheelchair van for 3:30pm. Transportation form completed and placed on SNF folder and copy on pt's chart. IRINA updated RN on transportation time and asked RN to update pt. IRINA placed a call to pt's daughter Josey and updated her on discharge and transportation time to [facility]. Josey states understanding. IRINA placed a call to Chanda at [facility] and updated her on transportation time. Plan: [facility] skilled under convalescent stay with [facility] transporting pt via wheelchair van at 3:30pm Ruth POTTER, CHIEF SERVICE OBSERVER
--- NOTE | 2021-03-14 15:16 | NURSING ---
report basia Durand RN at [facility]
== END 2021-03-14 16:30 | disposition skilled nursing facility (03) | DRG 330 ==
LOC: ED 08:20 → MS3 10:45
PROVIDERS: Internal Medicine; Surgery; Admitting Provider Surgery; Emergency Provider Emergency Medicine; PCP Family Medicine; Visit Provider Internal Medicine
PROC: 0DT80ZZ Resection of Small Intestine, Open Approach (ICD-10-PCS; CPT 49000; principal; 2021-03-07 15:05)
DX: K56.51 Intestinal adhesions [bands], with partial obstruction (principal); N30.00 Acute cystitis without hematuria; B96.20 Unspecified Escherichia coli [E. coli] as the cause of diseases classified elsewhere; I35.0 Nonrheumatic aortic (valve) stenosis; I44.0 Atrioventricular block, first degree; I10 Essential (primary) hypertension; E11.65 Type 2 diabetes mellitus with hyperglycemia; E03.9 Hypothyroidism, unspecified; E87.6 Hypokalemia; F32.A Depression, unspecified; F41.9 Anxiety disorder, unspecified; F03.90 Unspecified dementia, unspecified severity, without behavioral disturbance, psychotic disturbance, mood disturbance, and anxiety; H35.30 Unspecified macular degeneration; E83.42 Hypomagnesemia; R55 Syncope and collapse; R01.1 Cardiac murmur, unspecified; R32 Unspecified urinary incontinence; R53.81 Other malaise; Z79.82 Long term (current) use of aspirin; Z79.890 Hormone replacement therapy; Z79.84 Long term (current) use of oral hypoglycemic drugs; Z79.899 Other long term (current) drug therapy
CPT/HCPCS: 36415; 71101; 74018; 74177; 80048; 80053; 80076; 81001; 82962; 83690; 83735; 84100; 84443; 84484; 85025; 87077; 87086; 87088; 87186; 87426; 88307; 93005; 97110; 97162; 97166; 97530; 97535; 99251; 99285; J7030; J7040; J7120; Q9967; A4216; G0463; J0295; J2405; J3490

== ENCOUNTER 2021-09-28 11:27 | Emergency (ER) | payer MEDICARE, OTHER, SELFPAY ==
[2021-09-28 11:28] VITALS: BP 134/65; PULSE 60; RESP 18; TEMP 36.2; O2SAT 94; BMI 27.7
--- NOTE | 2021-09-28 11:53 | EX.ED.DYSGE1 ---
HPI <MIS Rodrigues - Last Filed: 09/28/21 13:15> History of Present Illness Chief Complaint: Abd Pain Narrative Narrative: 86-year-old female presents with abdominal pain. She states she ate rice crackers and peanut butter this morning, then had a bowel movement, then was sitting on the couch watching TV when she developed cramping left-sided abdominal pain. It became more severe in intensity causing her to feel short of breath. She states she was not actually having any difficulty breathing and there was no chest pain. She called EMS and resolved by the time they arrived. In total the episode was less than 20 minutes. No nausea or vomiting. Normal bladder and bowel movements. No melena or hematochezia. Surgical history includes hysterectomy and surgical bowel obstruction x1. COUNT INCLUDES THE [facility] <MIS Rodrigues - Last Filed: 09/28/21 13:15> COUNT INCLUDES THE [facility] Medical History (Updated 09/28/21 @ 13:12 by MIS Rodrigues) Anxiety Cancer Diabetes Heart murmur Hypertension Hypothyroidism Home Medications aspirin 81 mg chewable tablet 81 mg PO DAILY@0800 heart 12/10/13 [History Last Taken Unknown] metformin 500 mg tablet 500 mg PO TIDCM blood sugar 12/10/13 [History Last Taken Unknown] polyethylene glycol 3350 17 gram oral powder packet 17 g PO DAILY PRN Constipation 12/10/13 [History Last Taken Unknown] vit C 250 mg-vit E 90 mg-zinc 40 mg-copper 1 [id number] capsule (PreserVision AREDS-2) 1,000 mg PO DAILY multivitamin 04/22/14 [History Last Taken Unknown] venlafaxine 75 mg tablet 75 mg PO BID depression 08/20/18 [History Last Taken Unknown] diphenhydramine HCl 25 mg capsule 12.5 mg PO QHS PRN Insomnia 11/09/18 [History Last Taken Unknown] ascorbic acid (vitamin C) 1,000 mg capsule,extended release 1,000 cap PO DAILY SUPPLEMENT 09/19/20 [History Last Taken Unknown] erythromycin 5 mg/gram (0.5 %) eye ointment 1 applic RIGHT EYE QHS eye 09/19/20 [History Last Taken Unknown] neomycin-polymyxin B-dexameth eye drops,suspension 1 drp ophthalmic (eye) BID infection 09/20/20 [History Last Taken Unknown] potassium chloride 20 mEq tablet,extended release 40 meq PO DAILY #30 tabs 09/28/20 [Rx Last Taken Unknown] levothyroxine 88 mcg tablet 88 mcg PO DAILY THYROID 03/03/21 [History Last Taken Unknown] methenamine mandelate 1 gram tablet 1 g PO BID URINATION 03/03/21 [History Last Taken Unknown] amlodipine 10 mg tablet 10 mg PO DAILY #0 tabs 03/14/21 [Rx Last Taken Unknown] hydrocodone-acetaminophen 5-325mg 5mg-325mg 1 tab PO Q8H 5 days #15 tabs 03/14/21 [Rx Last Taken Unknown] lisinopril 20 mg tablet 20 mg PO BID #0 tabs 03/14/21 [Rx Last Taken Unknown] menthol 0.44 %-zinc oxide 20.6 % topical ointment (Calmoseptine) 1 applic topical BID #0 grams 03/14/21 [Rx Last Taken Unknown] nitrofurantoin monohydrate/macrocrystals 100 mg capsule (Macrobid) 100 mg PO BID 5 days #10 caps 09/28/21 [Rx Last Taken Unknown] Allergy/AdvReac Type Severity Reaction Status Date / Time amoxicillin [From Augmentin] Allergy Itching Verified 03/01/21 06:08 cefdinir Allergy Rash Verified 03/01/21 06:08 ciprofloxacin [From Cipro] Allergy Swelling Verified 03/01/21 06:08 clavulanic acid Allergy Itching Verified 03/01/21 06:08 [From Augmentin] doxycycline calcium Allergy Unknown Verified 03/01/21 06:08 [From Vibramycin] doxycycline hyclate Allergy Unknown Verified 03/01/21 06:08 [From Vibramycin] doxycycline monohydrate Allergy Unknown Verified 03/01/21 06:08 [From Vibramycin] fluticasone Allergy Unknown Verified 03/01/21 06:08 influenza virus vaccine, Allergy Swelling Verified 03/01/21 06:08 specific [Influenza Virus Vacc,Specific] losartan Allergy Angioedema Verified 03/01/21 06:08 pneumococcal vaccine Allergy Rash Verified 03/01/21 06:08 [Pneumococcal Vaccine] promethazine HCl Allergy Unknown Verified 03/01/21 06:08 [From Phenergan] tetracycline [Tetracycline] Allergy Unknown Verified 03/01/21 06:08 cephalexin [From Keflex] AdvReac Rash Verified 03/01/21 06:08 metronidazole [From Flagyl] AdvReac Unknown Verified 03/01/21 06:08 sulfamethoxazole AdvReac Rash Verified 03/01/21 06:08 [From Bactrim] trimethoprim [From Bactrim] AdvReac Rash Verified 03/01/21 06:08 Surgical History (Updated 03/22/21 @ 00:00 by Background Daemon) History of cataract surgery History of exploratory laparotomy History of hysterectomy Hx of tonsillectomy Status post small bowel resection Social History household members: none Smoking Status: Never smoker alcohol intake: current alcohol intake frequency: holidays/special occasions only substance use type: does not use EXAM <MIS Rodrigues - Last Filed: 09/28/21 13:15> Physical Exam Const Vital Signs: 09/28/21 11:28 09/28/21 13:29 Temperature 97.1 F L Temperature Source Temporal Pulse Rate 60 77 Respiratory Rate 18 18 Blood Pressure 134/65 H 139/63 H Blood Pressure Mean 88 Pulse Ox 94 96 Oxygen Delivery Method Room Air <Dr. Jey Johnson DO - Last Filed: 09/28/21 13:32> Physical Exam Const Vital Signs: 09/28/21 11:28 09/28/21 13:29 Temperature 97.1 F L Temperature Source Temporal Pulse Rate 60 77 Respiratory Rate 18 18 Blood Pressure 134/65 H 139/63 H Blood Pressure Mean 88 Pulse Ox 94 96 Oxygen Delivery Method Room Air MDM <MIS Rodrigues - Last Filed: 09/28/21 13:15> MDM MDM Narrative Medical decision making narrative: Patient had brief transient abdominal pain that has resolved. She appears well and nontoxic. Vital signs within normal limits. Heart regular and lungs are clear. Abdomen is soft, nontender, nonsurgical. CBC and BMP are within normal limits. UA consistent with UTI and was sent for culture. She has no abdominal pain now no flank pain and benign exam and there is no indication for CT scan. Patient has multiple antibiotic allergies so will be treated with Macrobid with first dose given here. She states she will follow-up with either her PCP or women's health doctor. She was discharged in stable condition. 1. Abdominal pain 2. UTI Lab Data Labs: Laboratory Results - last 24 hr 09/28/21 09/28/21 09/28/21 11:30 11:30 12:01 WBC 6.1 RBC 4.69 Hgb 13.3 Hct 41.7 MCV 88.9 MCH 28.4 MCHC 31.9 L RDW Std Deviation 42.4 RDW Coeff of Marleni 13.0 Plt Count 242 MPV 9.7 Immature Gran % (Auto) 0.200 Neut % (Auto) 39.0 L Lymph % (Auto) 48.6 H [place] % (Auto) 7.7 Eos % (Auto) 3.8 Baso % (Auto) 0.7 Absolute Neuts (auto) 2.4 Absolute Lymphs (auto) 2.97 Nucleated RBC % 0 Sodium 141 Potassium 3.4 L Chloride 104 Carbon Dioxide 31.0 Anion Gap 6 BUN 25 H Creatinine 0.84 Estim Creat Clear Calc 44.06 Est GFR (MDRD) Af Amer 82 Est GFR (MDRD) Non-Af 68 BUN/Creatinine Ratio 29.6 H Glucose 125 H Calcium 9.6 Urine Color Yellow Urine Clarity Cloudy Urine pH 6.0 Ur Specific [place] 1.010 Urine Protein Negative Urine Glucose (UA) Normal Urine Ketones Negative Urine Occult Blood 10 H Urine Nitrite Negative Urine Bilirubin Negative Urine Urobilinogen 1 H Ur Leukocyte Esterase 500 H Urine RBC 0-5 SEEN Urine WBC 25-50 SEEN Ur Squamous Epith Cells 0 SEEN Amorphous Sediment 2+ Urine Bacteria 0 SEEN Urine Mucus 0 SEEN <Dr. Jey Johnson, DO - Last Filed: 09/28/21 13:32> [facility] MDM Narrative Medical decision making narrative: Patient had brief transient abdominal pain that has resolved. She appears well and nontoxic. Vital signs within normal limits. Heart regular and lungs are clear. Abdomen is soft, nontender, nonsurgical. CBC and BMP are within normal limits. UA consistent with UTI and was sent for culture. She has no abdominal pain now no flank pain and benign exam and there is no indication for CT scan. Patient has multiple antibiotic allergies so will be treated with Macrobid with first dose given here. She states she will follow-up with either her PCP or women's health doctor. She was discharged in stable condition. 1. Abdominal pain 2. UTI I performed a history and physical examination of the patient and discussed management plan with the physician medical assistant supervisor. I reviewed the physician medical assistant supervisor's note and agree with the documented findings and plan of care. Patient developed left-sided abdominal pain after having a bowel movement. The pain was intense and made her short of breath. Symptoms abated as EMS arrived. We find evidence of a minor UTI which will be cultured and treated. Jey Johnson DO, MS Lab Data Labs: Laboratory Results - last 24 hr 09/28/21 09/28/21 09/28/21 11:30 11:30 12:01 WBC 6.1 RBC 4.69 Hgb 13.3 Hct 41.7 MCV 88.9 MCH 28.4 MCHC 31.9 L RDW Std Deviation 42.4 RDW Coeff of Marleni 13.0 Plt Count 242 MPV 9.7 Immature Gran % (Auto) 0.200 Neut % (Auto) 39.0 L Lymph % (Auto) 48.6 H [place] % (Auto) 7.7 Eos % (Auto) 3.8 Baso % (Auto) 0.7 Absolute Neuts (auto) 2.4 Absolute Lymphs (auto) 2.97 Nucleated RBC % 0 Sodium 141 Potassium 3.4 L Chloride 104 Carbon Dioxide 31.0 Anion Gap 6 BUN 25 H Creatinine 0.84 Estim Creat Clear Calc 44.06 Est GFR (MDRD) Af Amer 82 Est GFR (MDRD) Non-Af 68 BUN/Creatinine Ratio 29.6 H Glucose 125 H Calcium 9.6 Urine Color Yellow Urine Clarity Cloudy Urine pH 6.0 Ur Specific [place] 1.010 Urine Protein Negative Urine Glucose (UA) Normal Urine Ketones Negative Urine Occult Blood 10 H Urine Nitrite Negative Urine Bilirubin Negative Urine Urobilinogen 1 H Ur Leukocyte Esterase 500 H Urine RBC 0-5 SEEN Urine WBC 25-50 SEEN Ur Squamous Epith Cells 0 SEEN Amorphous Sediment 2+ Urine Bacteria 0 SEEN Urine Mucus 0 SEEN Discharge Plan Triage Chief Complaint: Abd Pain ED Midlevel Provider: Yas Roy ED Provider: Jey Johnson Dx/Rx/DC Orders Clinical Impression: Acute UTI Instructions: ED CYSTITIS Female Adult Prescriptions: New nitrofurantoin monohyd/m-cryst [Macrobid] 100 mg capsule 100 mg PO BID 5 Days Qty: 10 0RF Rx Instructions: must administer with a meal/food No Action aspirin 81 MG tablet,chewable 81 mg PO DAILY@0800 Label Comments: HE[employer] metformin 500 MG tablet 500 mg PO TIDCM Label Comments: DIABETES polyethylene glycol 3350 17 GM powder in packet 17 g PO DAILY PRN (Reason: Constipation) Label Comments: STOOL SOFTNER PreserVision AREDS-2 1 EACH capsule 1,000 mg PO DAILY venlafaxine 75 MG tablet 75 mg PO BID diphenhydramine HCl 25 MG capsule 12.5 mg PO QHS PRN (Reason: Insomnia) ascorbic acid (vitamin C) 1,000 mg Capsule, Extended Release 1,000 cap PO DAILY erythromycin 5 mg/gram (0.5 %) Ointment 1 applic RIGHT EYE QHS neomycin-polymyxin B-dexameth Drops,Suspension 1 drp OPHTHALMIC (EYE) BID potassium chloride 20 mEq tablet extended release 40 meq PO DAILY Qty: 30 0RF levothyroxine 88 mcg tablet 88 mcg PO DAILY methenamine mandelate 1 gram tablet 1 g PO BID hydrocodone-acetaminophen 5-325 mg tablet 1 tab PO Q8H 5 Days Qty: 15 0RF lisinopril 20 mg Tablet 20 mg PO BID Qty: 0 0RF amlodipine 10 mg Tablet 10 mg PO DAILY Qty: 0 0RF menthol-zinc oxide [Calmoseptine] 0.44-20.6 % Ointment 1 applic topical BID Qty: 0 0RF Protocol: *Topical Application Instructions APPLICATION INSTRUCTIONS: coccyx Primary Care Provider: Da Ocampo Referrals: Da Ocampo MD [Primary Care Provider] - Activity Restrictions/Additional Instructions: You have a urinary tract infection and I prescribed an antibiotic called Macrobid. Please follow-up with your doctor next week. If any symptoms worsen come back to the ER. Disposition Disposition: Home, Self Care
[2021-09-28 12:04] LABS: Absolute Lymphocyte Count 2.97 X10^3/uL (0.83-4.51); Absolute Neutrophil Count 2.4 X10^3/uL (2.0-7.7); Basophil# 0.04 X10^3/uL; Basophil% 0.7 % (0-1); Eosinophil# 0.23 X10^3/uL; Eosinophils% 3.8 % (0-5); Hematocrit 41.7 % (37-47); Hemoglobin 13.3 g/dL (12.0-15.0); Lymphocyte # 2.97 X10^3/ul (0.83-4.51); Lymphocyte % 48.6 % (19-41); Mean Corp Hgb Conc 31.9 g/dL (32-36); Mean Corpuscular Hgb 28.4 pg (27.0-32.0); Mean Corpuscular Volume 88.9 fL (81-99); Mean Platelet Vol. 9.7 fl (6.2-12.0); Monocyte# 0.47 X10^3/uL; Monocyte% 7.7 % (0-10); NRBC Flagged by Analyzer 0 % (0-5); Neutrophil # 2.39 X10^3/uL (2.7-7.7); Platelet Count 242 K/mm3 (150-450); RBC Distribution Width SD 42.4 fl (35.1-43.9); Red Blood Count 4.69 M/mm3 (4.2-5.4); White Blood Count 6.1 K/mm3 (4.4-11.0)
[2021-09-28 12:06] LABS: Bacteria 0 SEEN /hpf (None Seen); Mucous, Urine 0 SEEN /hpf (<or=2+); Squamous Epithelial Cells - UA 0 SEEN /hpf (5-10)
[2021-09-28 12:08] LABS: Color, Urine Yellow (Yellow); Glucose, Dipstick Normal (Normal); Ketone-Dipstick Negative (Negative); Leukocyte Esterase-Dipstick 500 /ul (Negative); Nitrite-Dipstick Negative (Negative); Occult Blood-Urine 10 /ul (Negative); Protein-Dipstick Negative (Negative); Urine Bilirubin Dipstick Negative (Negative); Urine Clarity Cloudy (Clear); Urine Urobilinogen 1 mg/dl (Normal)
[2021-09-28 12:15] LABS: Amorphous Sediment 2+; White Blood Cells 25-50 SEEN /hpf (0-5)
[2021-09-28 12:16] LABS: Red Blood Cells-Urine 0-5 SEEN /hpf (0-5)
[2021-09-28 12:18] LABS: Anion Gap 6 (5-15); BUN 25 mg/dL (7-18); BUN/Creat Ratio 29.6 RATIO (10-20); Calcium,Total 9.6 mg/dL (8.5-10.1); Chloride 104 mmol/L (98-107); Creatinine, Serum 0.84 mg/dL (0.55-1.02); EST Glomerular Filtration Rate 68 mL/min (>60); Est Glom Filt Rate - Afr Amer 82 mL/min (>60); Estimated Creatinine Clearance 44.06 ml/min; Glucose 125 mg/dL (74-106); Potassium 3.4 mmol/L (3.5-5.1); Sodium Level 141 mmol/L (136-145)
[2021-09-28] MEDS: Nitrofurantoin Macrocrystals 100 MG Capsule PO (13:28)
[2021-09-28 13:29] VITALS: BP 139/63; PULSE 77; RESP 18; O2SAT 96
== END 2021-09-28 14:55 | disposition home or self-care (01) ==
PROVIDERS: Physician Assistant; Emergency Provider Emergency Medicine; PCP Family Medicine; Visit Provider Emergency Medicine
DX: N39.0 Urinary tract infection, site not specified (principal); E11.9 Type 2 diabetes mellitus without complications; I10 Essential (primary) hypertension; E03.9 Hypothyroidism, unspecified; F41.9 Anxiety disorder, unspecified; Z79.82 Long term (current) use of aspirin; Z79.84 Long term (current) use of oral hypoglycemic drugs; Z79.899 Other long term (current) drug therapy; Z87.19 Personal history of other diseases of the digestive system; Z90.710 Acquired absence of both cervix and uterus
CPT/HCPCS: 80048; 81001; 85025; 87077; 87086; 87088; 87186; 99285

== ENCOUNTER 2022-03-23 19:36 | Inpatient (IN) | payer MEDICARE, OTHER, SELFPAY ==
[2022-03-23 19:42] VITALS: BP 196/74; PULSE 79; RESP 20; TEMP 36.4; O2SAT 94
--- NOTE | 2022-03-23 20:06 | EKG12_ITS ---
Test Reason : ABD. PAIN Blood Pressure : / mmHG Vent. Rate : 072 BPM Atrial Rate : 072 BPM P-R Int : 272 ms QRS Dur : 138 ms QT Int : 454 ms P-R-T Axes : 044 -36 086 degrees QTc Int : 497 ms Sinus rhythm with 1st degree A-V block Left axis deviation Left ventricular hypertrophy with QRS widening ( R in aVL , Lance product ) Nonspecific T wave abnormality Abnormal ECG Confirmed by DOREEN JUNG, CHRISTIN ([id number]), mapping editor KRISTEL HILARIO ([id number]) on 03/27/2022 11:18:26 AM Referred By: NATHANIEL Confirmed By:CHRISTIN LOGAN MD
--- NOTE | 2022-03-23 20:07 | CT_ITS ---
INDICATION: Left upper quadrant pain, history of uterine cancer, hysterectomy, obstruction EXAMINATION: CT ABDOMEN AND PELVIS WITH CONTRAST - CT Abdomen And Pelvis W/ Contrast Injection TECHNIQUE: Helically acquired images were obtained of the abdomen and pelvis following IV contrast. A radiation dose optimization technique was used for this scan. IV Contrast dosage and agent: 100 cc [id number] Oral contrast: None. COMPARISON: 03/01/2021 FINDINGS: LOWER CHEST: Lung bases are clear. No cardiomegaly or pericardial effusion. LIVER: Stable cyst right lobe. No concerning focal mass. GALLBLADDER AND BILIARY TREE: No calcified gallstones. No gallbladder distension or wall edema. No intra- or extrahepatic biliary ductal dilation. PANCREAS: No focal cystic or solid mass. SPLEEN: Normal size without focal cystic or solid mass. ADRENAL GLANDS: No nodules. KIDNEYS AND URETERS: Nonobstructing right renal calculus. No hydronephrosis. PERITONEUM: No free air. Trace amount of ascites in the mid abdomen about the distended small bowel loop. BOWEL: Normal appendix. Moderate distention of distal duodenum and proximal jejunum to the level of anastomotic sutures. Less distention present on prior study. Diffusely increased colonic fecal burden. LYMPH NODES: No enlarged mesenteric or retroperitoneal lymph nodes. VESSELS: Aorta is non-dilated. URINARY BLADDER: Unremarkable. REPRODUCTIVE ORGANS: Uterus absent. ABDOMINAL WALL: No discrete abdominal or pelvic wall hernia. BONES: No acute or aggressive abnormality. CT/Abdomen/Pelvis W IV Cont ONLY IMPRESSION: Moderate dilatation of proximal small bowel similar to prior study but with less distention. Distention ends at the level of the small bowel anastomotic sutures. This finding may reflect a recurrent source of partial obstruction. Colonic fecal burden consistent with clinical constipation. Electronically Signed: Juan C Strickland MD at 21:42 EST ,
--- NOTE | 2022-03-23 20:08 | ED.VIS.GI ---
HPI HPI - GI History of Present Illness Chief Complaint: Abd Pain Informant: patient Narrative Narrative: Patient presents with abdominal pain. It is mostly left upper quadrant but then she does describe it in the lower abdomen at x2. It sounds like she was having slightly increased bowel movements last week. But they were small amounts. But she did feel constipated. I cannot get her to answer when her last bowel movement was though. I have asked multiple times. She thinks she might be passing a little bit of gas today but is not sure. She denies urinary symptoms other than chronic incontinence which is unchanged. She has not had nausea vomiting. She has not had fevers or chills. She does states that she hears her bowels gurgling more than normal. She has had prior obstruction and had surgery for this about [address] Dillon. She was feeling okay when she got up this morning. [facility] Medical History Anxiety Cancer Diabetes Heart murmur Hypertension Hypothyroidism Home Medications aspirin 81 mg chewable tablet 81 mg PO DAILY@0800 heart 12/10/13 [History Last Taken Unknown] metformin 500 mg tablet 500 mg PO TIDCM blood sugar 12/10/13 [History Last Taken Unknown] polyethylene glycol 3350 17 gram oral powder packet 17 g PO DAILY PRN Constipation 12/10/13 [History Last Taken Unknown] vit C 250 mg-vit E 90 mg-zinc 40 mg-copper 1 [id number] capsule (PreserVision AREDS-2) 1,000 mg PO DAILY multivitamin 04/22/14 [History Last Taken Unknown] venlafaxine 75 mg tablet 75 mg PO BID depression 08/20/18 [History Last Taken Unknown] diphenhydramine HCl 25 mg capsule 12.5 mg PO QHS PRN Insomnia 11/09/18 [History Last Taken Unknown] ascorbic acid (vitamin C) 1,000 mg capsule,extended release 1,000 cap PO DAILY SUPPLEMENT 09/19/20 [History Last Taken Unknown] erythromycin 5 mg/gram (0.5 %) eye ointment 1 applic RIGHT EYE QHS eye 09/19/20 [History Last Taken Unknown] neomycin-polymyxin B-dexameth eye drops,suspension 1 drp ophthalmic (eye) BID infection 09/20/20 [History Last Taken Unknown] potassium chloride 20 mEq tablet,extended release 40 meq PO DAILY #30 tabs 09/28/20 [Rx Last Taken Unknown] levothyroxine 88 mcg tablet 88 mcg PO DAILY THYROID 03/03/21 [History Last Taken Unknown] methenamine mandelate 1 gram tablet 1 g PO BID URINATION 03/03/21 [History Last Taken Unknown] amlodipine 10 mg tablet 10 mg PO DAILY #0 tabs 03/14/21 [Rx Last Taken Unknown] hydrocodone-acetaminophen 5-325mg 5mg-325mg 1 tab PO Q8H 5 days #15 tabs 03/14/21 [Rx Last Taken Unknown] lisinopril 20 mg tablet 20 mg PO BID #0 tabs 03/14/21 [Rx Last Taken Unknown] menthol 0.44 %-zinc oxide 20.6 % topical ointment (Calmoseptine) 1 applic topical BID #0 grams 03/14/21 [Rx Last Taken Unknown] nitrofurantoin monohydrate/macrocrystals 100 mg capsule (Macrobid) 100 mg PO BID 5 days #10 caps 09/28/21 [Rx Last Taken Unknown] Allergy/AdvReac Type Severity Reaction Status Date / Time amoxicillin [From Augmentin] Allergy Itching Verified 03/23/22 19:46 cefdinir Allergy Rash Verified 03/23/22 19:46 ciprofloxacin [From Cipro] Allergy Swelling Verified 03/23/22 19:46 clavulanic acid Allergy Itching Verified 03/23/22 19:46 [From Augmentin] doxycycline calcium Allergy Unknown Verified 03/23/22 19:46 [From Vibramycin] doxycycline hyclate Allergy Unknown Verified 03/23/22 19:46 [From Vibramycin] doxycycline monohydrate Allergy Unknown Verified 03/23/22 19:46 [From Vibramycin] fluticasone Allergy Unknown Verified 03/23/22 19:46 influenza virus vaccine, Allergy Swelling Verified 03/23/22 19:46 specific [Influenza Virus Vacc,Specific] losartan Allergy Angioedema Verified 03/23/22 19:46 pneumococcal vaccine Allergy Rash Verified 03/23/22 19:46 [Pneumococcal Vaccine] promethazine HCl Allergy Unknown Verified 03/23/22 19:46 [From Phenergan] tetracycline [Tetracycline] Allergy Unknown Verified 03/23/22 19:46 cephalexin [From Keflex] AdvReac Rash Verified 03/23/22 19:46 metronidazole [From Flagyl] AdvReac Unknown Verified 03/23/22 19:46 sulfamethoxazole AdvReac Rash Verified 03/23/22 19:46 [From Bactrim] trimethoprim [From Bactrim] AdvReac Rash Verified 03/23/22 19:46 Surgical History History of cataract surgery History of exploratory laparotomy History of hysterectomy Hx of tonsillectomy Status post small bowel resection Social History household members: none Smoking Status: Never smoker alcohol intake: current alcohol intake frequency: holidays/special occasions only substance use type: does not use ROS ROS ED Constitutional Constitutional ED: Denies chills or fever(s) ENT ENT ED: Denies rhinorrhea Cardiovascular Cardiovascular: Denies chest pain Respiratory/Chest Respiratory/Chest: Denies cough or dyspnea Gastrointestinal Gastrointestinal: Reports abdominal pain; Denies nausea or vomiting Genitourinary Genitourinary ED: Denies dysuria Musculoskeletal Musculoskeletal: Denies back pain Integumentary Denies rash Neurologic Neurologic: Denies paresthesias or weakness Endocrine Endocrinology: Denies polydipsia or polyuria Hematologic/Lymphatic Hematologic/Lymphatic: Denies easy bleeding or easy bruising Allergic/Immunologic Allergic/Immunologic ED: Denies urticaria EXAM Physical Exam Const Vital Signs: 03/23/22 19:42 03/23/22 21:36 Temperature 97.6 F L Temperature Source Oral Pulse Rate 79 73 Respiratory Rate 20 H 18 Blood Pressure 196/74 H 146/61 H Blood Pressure Mean 114 89 Pulse Ox 94 99 Oxygen Delivery Method Room Air Room Air Positive well nourished and well developed Constitutional Narrative: Patient does look a little uncomfortable in the room. But she is nontoxic. General Appearance ED: well developed HEENT Reports moist mucous membranes Eyes General Eye ED: Negative for scleral icterus Neck supple Resp normal respiratory effort and clear to auscultation bilaterally Cardio regular rate and regular rhythm GI GI Narrative: Abdomen does not feel distended. However, there are increased hyperactive bowel sounds. There is mild tenderness more on the left than the right but really I cannot localize this further. It is not just left upper quadrant. Auscultation: hyperactive bowel sounds Back/Spine no CVA tenderness Extremity General Extremety ED: Negative for tenderness Neuro Neuro Narrative: Patient is alert. She is oriented. Some of her history is very good and detailed. Some questions are very hard to get the specific answer. But there does not appear to be any notable confusion. Sensorium / Orientation: alert Psych thought process normal Skin no wounds MDM MDM MDM Narrative Medical decision making narrative: CT is showing signs of partial small bowel obstruction with a transition point at the anastomosis. Although the CT does not show marked changes, the patient is having pain and symptoms consistent with her small bowel obstructions in the past. She had surgery in August and February 2021 for this. Her white count is normal. Rest of CBC looks normal. Electrolytes look good other than mild elevation of her BUN to creatinine. She will be given some IV fluids. Her lactic acid is normal. Liver function test are normal. I discussed the case with Dr. Chino on-call for surgery who will come evaluate the patient. Plan will be for admission. Lab Data Attestation: I reviewed the patient's lab results. Labs: Laboratory Results - last 24 hr 03/23/22 03/23/22 03/23/22 19:55 19:55 20:11 WBC 7.1 RBC 4.81 Hgb 13.6 Hct 43.3 MCV 90.0 MCH 28.3 MCHC 31.4 L RDW Std Deviation 41.7 RDW Coeff of Marleni 12.6 Plt Count 282 MPV 9.2 Immature Gran % (Auto) 0.300 Neut % (Auto) 61.1 Lymph % (Auto) 28.1 [place] % (Auto) 8.7 Eos % (Auto) 1.4 Baso % (Auto) 0.4 Absolute Neuts (auto) 4.3 Absolute Lymphs (auto) 1.99 Nucleated RBC % 0 Sodium 139 Potassium 3.6 Chloride 102 Carbon Dioxide 31.0 Anion Gap 6 BUN 28 H Creatinine 0.84 Estim Creat Clear Calc 42.28 Est GFR (MDRD) Af Amer 83 Est GFR (MDRD) Non-Af 68 BUN/Creatinine Ratio 33.3 H Glucose 131 H Lactic Acid 1.9 Calcium 9.8 Total Bilirubin 0.40 AST 11 L ALT 18 Alkaline Phosphatase 106 Total Protein 8.1 Albumin 4.0 Globulin 4.1 Albumin/Globulin Ratio 1.0 Lipase 166 Radiography Diagnostic Testing: Clinical Impression(s) from Imaging Studies Abdomen/Pelvis CT 03/23/22 20:07 IMPRESSION: Moderate dilatation of proximal small bowel similar to prior study but with less distention. Distention ends at the level of the small bowel anastomotic sutures. This finding may reflect a recurrent source of partial obstruction. Colonic fecal burden consistent with clinical constipation. Electronically Signed: Juan C Strickland MD at 21:42 EST , CT shows some dilation of proximal but the distention ends at the level of the anastomosis. There was fecal burden. EKG Initial EKG: Comments: EKG done for upper abdominal pain in the elderly read by me shows sinus rhythm with first-degree AV block and overall rate of 72. There is LV hypertrophy and nonspecific ST and T wave change but no sign of infarct. [place] interval is long. QRS duration is long. QTC is long. This is similar to last years. Discharge Plan Dx/Rx/DC Orders Clinical Impression: Partial obstruction of small intestine, Abdominal pain Disposition Disposition: Acute Care Hospital [facility] [place] [facility]
[2022-03-23 20:27] LABS: Absolute Lymphocyte Count 1.99 X10^3/uL (0.83-4.51); Absolute Neutrophil Count 4.3 X10^3/uL (2.0-7.7); Basophil# 0.03 X10^3/uL; Basophil% 0.4 % (0-1); Eosinophils% 1.4 % (0-5); Hematocrit 43.3 % (37-47); Hemoglobin 13.6 g/dL (12.0-15.0); Lymphocyte # 1.99 X10^3/ul (0.83-4.51); Lymphocyte % 28.1 % (19-41); Mean Corp Hgb Conc 31.4 g/dL (32-36); Mean Corpuscular Hgb 28.3 pg (27.0-32.0); Mean Platelet Vol. 9.2 fl (6.2-12.0); Monocyte# 0.62 X10^3/uL; Monocyte% 8.7 % (0-10); NRBC Flagged by Analyzer 0 % (0-5); Neutrophil # 4.33 X10^3/uL (2.7-7.7); Neutrophil % 61.1 % (47-70); Platelet Count 282 K/mm3 (150-450); RBC Distribution Width CV 12.6 % (11.6-14.6); RBC Distribution Width SD 41.7 fl (35.1-43.9); Red Blood Count 4.81 M/mm3 (4.2-5.4); White Blood Count 7.1 K/mm3 (4.4-11.0)
[2022-03-23] MEDS: Ondansetron 4 MG/2 ML Vial IV (20:39)
[2022-03-23] MEDS: 0.9% Normal Saline 1,000 ML 125 ML IV (20:39)
[2022-03-23] MEDS: Morphine 4 MG/ML Syringe IV (20:39)
[2022-03-23 20:47] LABS: AST(SGOT) 11 U/L (15-37); Alanine Aminotransfer ALT/SGPT 18 U/L (13-56); Alkaline Phosphatase 106 U/L (45-117); Anion Gap 6 (5-15); BUN 28 mg/dL (7-18); BUN/Creat Ratio 33.3 RATIO (10-20); Calcium,Total 9.8 mg/dL (8.5-10.1); Chloride 102 mmol/L (98-107); Creatinine, Serum 0.84 mg/dL (0.55-1.02); EST Glomerular Filtration Rate 68 mL/min (>60); Est Glom Filt Rate - Afr Amer 83 mL/min (>60); Estimated Creatinine Clearance 42.28 ml/min; Globulin 4.1 g/dL (2.2-4.2); Glucose 131 mg/dL (74-106); Lipase 166 U/L (73-393); Potassium 3.6 mmol/L (3.5-5.1); Protein, Total 8.1 g/dL (6.4-8.2); Sodium Level 139 mmol/L (136-145)
[2022-03-23 20:51] LABS: Lactic Acid 1.9 mmol/L (0.4-1.9)
[2022-03-23 21:36] VITALS: BP 146/61; PULSE 73; RESP 18; O2SAT 99
--- NOTE | 2022-03-23 22:51 | ED.RN ---
PT SLEEPING AND O2 SATS DECREASE TO 87% ON 2L NC. INCREASED TO 6L NC.
--- NOTE | 2022-03-23 23:54 | PCM.HP.STD ---
HPI - General HPI Narrative ANGE LAZARO, is a 86 F who presents abdominal pain. The patient reports that she woke up this morning with no abdominal pain. She ate breakfast and then went and took a nap and when she woke up she was having left upper quadrant pain. She denies any nausea or vomiting. She says that she has not had a bowel movement in 2 days and she does not remember passing gas. Currently she reports she is not having any abdominal pain. [facility] Medical History Anxiety Cancer Diabetes Heart murmur Hypertension Hypothyroidism Home Medications aspirin 81 mg chewable tablet 81 mg PO DAILY@0800 heart 12/10/13 [History Last Taken Unknown] metformin 500 mg tablet 500 mg PO TIDCM blood sugar 12/10/13 [History Last Taken Unknown] polyethylene glycol 3350 17 gram oral powder packet 17 g PO DAILY PRN Constipation 12/10/13 [History Last Taken Unknown] vit C 250 mg-vit E 90 mg-zinc 40 mg-copper 1 ng-rhpdnt-pwslyv capsule (PreserVision AREDS-2) 1,000 mg PO DAILY multivitamin 04/22/14 [History Last Taken Unknown] venlafaxine 75 mg tablet 75 mg PO BID depression 08/20/18 [History Last Taken Unknown] diphenhydramine HCl 25 mg capsule 12.5 mg PO QHS PRN Insomnia 11/09/18 [History Last Taken Unknown] ascorbic acid (vitamin C) 1,000 mg capsule,extended release 1,000 cap PO DAILY SUPPLEMENT 09/19/20 [History Last Taken Unknown] erythromycin 5 mg/gram (0.5 %) eye ointment 1 applic RIGHT EYE QHS eye 09/19/20 [History Last Taken Unknown] neomycin-polymyxin B-dexameth eye drops,suspension 1 drp ophthalmic (eye) BID infection 09/20/20 [History Last Taken Unknown] potassium chloride 20 mEq tablet,extended release 40 meq PO DAILY #30 tabs 09/28/20 [Rx Last Taken Unknown] levothyroxine 88 mcg tablet 88 mcg PO DAILY THYROID 03/03/21 [History Last Taken Unknown] methenamine mandelate 1 gram tablet 1 g PO BID URINATION 03/03/21 [History Last Taken Unknown] amlodipine 10 mg tablet 10 mg PO DAILY #0 tabs 03/14/21 [Rx Last Taken Unknown] hydrocodone-acetaminophen 5-325mg 5mg-325mg 1 tab PO Q8H 5 days #15 tabs 03/14/21 [Rx Last Taken Unknown] lisinopril 20 mg tablet 20 mg PO BID #0 tabs 03/14/21 [Rx Last Taken Unknown] menthol 0.44 %-zinc oxide 20.6 % topical ointment (Calmoseptine) 1 applic topical BID #0 grams 03/14/21 [Rx Last Taken Unknown] nitrofurantoin monohydrate/macrocrystals 100 mg capsule (Macrobid) 100 mg PO BID 5 days #10 caps 09/28/21 [Rx Last Taken Unknown] Allergy/AdvReac Type Severity Reaction Status Date / Time amoxicillin [From Augmentin] Allergy Itching Verified 03/23/22 19:46 cefdinir Allergy Rash Verified 03/23/22 19:46 ciprofloxacin [From Cipro] Allergy Swelling Verified 03/23/22 19:46 clavulanic acid Allergy Itching Verified 03/23/22 19:46 [From Augmentin] doxycycline calcium Allergy Unknown Verified 03/23/22 19:46 [From Vibramycin] doxycycline hyclate Allergy Unknown Verified 03/23/22 19:46 [From Vibramycin] doxycycline monohydrate Allergy Unknown Verified 03/23/22 19:46 [From Vibramycin] fluticasone Allergy Unknown Verified 03/23/22 19:46 influenza virus vaccine, Allergy Swelling Verified 03/23/22 19:46 specific [Influenza Virus Vacc,Specific] losartan Allergy Angioedema Verified 03/23/22 19:46 pneumococcal vaccine Allergy Rash Verified 03/23/22 19:46 [Pneumococcal Vaccine] promethazine HCl Allergy Unknown Verified 03/23/22 19:46 [From Phenergan] tetracycline [Tetracycline] Allergy Unknown Verified 03/23/22 19:46 cephalexin [From Keflex] AdvReac Rash Verified 03/23/22 19:46 metronidazole [From Flagyl] AdvReac Unknown Verified 03/23/22 19:46 sulfamethoxazole AdvReac Rash Verified 03/23/22 19:46 [From Bactrim] trimethoprim [From Bactrim] AdvReac Rash Verified 03/23/22 19:46 Surgical History History of cataract surgery History of exploratory laparotomy History of hysterectomy Hx of tonsillectomy Status post small bowel resection Social History household members: none Smoking Status: Never smoker alcohol intake: current alcohol intake frequency: holidays/special occasions only substance use type: does not use ROS Constitutional Constitutional: Denies anorexia, fatigue or fever(s) Eyes Eyes: Denies blurry vision ENT HEENT: Denies abnormal hearing Cardiovascular Cardiovascular: Denies chest pain Respiratory/Chest Respiratory/Chest: Denies cough or dyspnea Gastrointestinal Gastrointestinal: Reports abdominal pain and constipation; Denies diarrhea, nausea or vomiting Genitourinary Genitourinary: Reports urinary incontinence; Denies change in urinary stream Musculoskeletal Musculoskeletal: Denies abnormal gait or back pain Integumentary Integumentary: Denies jaundice Neurologic Neurologic: Denies dizziness Endocrine Endocrinology: Denies flushing Vital Signs Vital Signs Vital Signs: 03/23/22 19:42 03/23/22 21:36 Temperature 97.6 F L Temperature Source Oral Pulse Rate 79 73 Respiratory Rate 20 H 18 Blood Pressure 196/74 H 146/61 H Blood Pressure Mean 114 89 Pulse Ox 94 99 Oxygen Delivery Method Room Air Room Air Weight Weight: 180 lb 8.937 oz Body Mass Index (BMI) 30.0 Physical Exam Const no apparent distress Resp normal respiratory effort Cardio regular rate and regular rhythm GI soft to palpation and non-tender Inspection: Negative for abdominal distention Extremity normal to inspection Results Lab / Micro Data Result Diagrams: 03/23/22 19:55 03/23/22 19:55 Labs: Laboratory Results - last 24 hr 03/23/22 19:55: WBC 7.1, RBC 4.81, Hgb 13.6, Hct 43.3, MCV 90.0, MCH 28.3, MCHC 31.4 L, RDW Std Deviation 41.7, RDW Coeff of Marleni 12.6, Plt Count 282, MPV 9.2, Immature Gran % (Auto) 0.300, Neut % (Auto) 61.1, Lymph % (Auto) 28.1, [place] % (Auto) 8.7, Eos % (Auto) 1.4, Baso % (Auto) 0.4, Absolute Neuts (auto) 4.3, Absolute Lymphs (auto) 1.99, Nucleated RBC % 0 03/23/22 19:55: Sodium 139, Potassium 3.6, Chloride 102, Carbon Dioxide 31.0, Anion Gap 6, BUN 28 H, Creatinine 0.84, Estim Creat Clear Calc 42.28, Est GFR (MDRD) Af Amer 83, Est GFR (MDRD) Non-Af 68, BUN/Creatinine Ratio 33.3 H, Glucose 131 H, Calcium 9.8, Total Bilirubin 0.40, AST 11 L, ALT 18, Alkaline Phosphatase 106, Total Protein 8.1, Albumin 4.0, Globulin 4.1, Albumin/Globulin Ratio 1.0, Lipase 166 03/23/22 20:11: Lactic Acid 1.9 Radiology Impression Abdomen/Pelvis CT 03/23/22 20:07 IMPRESSION: Moderate dilatation of proximal small bowel similar to prior study but with less distention. Distention ends at the level of the small bowel anastomotic sutures. This finding may reflect a recurrent source of partial obstruction. Colonic fecal burden consistent with clinical constipation. Electronically Signed: Juan C Strickland MD at 21:42 EST , Assessment & Plan Assessment/Plan (1) Partial obstruction of small intestine: PLAN: Patient has the scan which showed some dilation of the proximal small bowel. It was not as bad as the CT scan before her surgery last year. The possible transition point is the anastomosis as it is partially dilated proximal to the anastomosis but nondilated after. Patient does have a copious amount of stool in the colon and rectum. She says she has not had normal bowel movement in 2 days what appears to be a large stool burden in the rectum. Currently the patient is not having any abdominal pain and her abdomen is soft and nondistended and her white count is normal. I will admit the patient to the floor on IV antibiotics and repeat x-ray in the morning. I will likely order a small bowel follow-through in the morning to check if contrast passes the anastomosis. I will also order a Dulcolax suppository as there is a large fecal burden in the colon and rectum and the patient reports she has not had a bowel movement in 2 days. I will also order a UA as the patient reports she is incontinent and does have frequent UTIs. Caleb Hanna MD Pager: [facility] [address] [place] [address] [address] [place] [address] Office:
[2022-03-24] VITALS (7 sets, daily range): BP systolic 114–173; BP diastolic 44–80; PULSE 64–75; RESP 18; TEMP 36.6–37.4; O2SAT 96–100; BMI 27.7
--- NOTE | 2022-03-24 | RAD_ITS ---
INDICATION: Small bowel obstruction EXAMINATION/TECHNIQUE: Serial images of abdomen were obtained following ingestion of contrast. 4 views are available. COMPARISON: The scan of the abdomen of 03/23/2022. FINDINGS: The small bowel loops are opacified and are mildly dilated. Contrast reached the colon at approximately 2 hours. There is no evidence of complete small bowel obstruction. The terminal ileum is not clearly identified. Contrast seen in the bladder from the CT scan with contrast. RAD/Small Bowel Series Only IMPRESSION: No evidence of complete small bowel obstruction on this examination. Electronically Signed: Jadiel Mccracken MD at 12:06 EST ,
[2022-03-24 00:27] LABS: Mucous, Urine 0 SEEN /hpf (<or=2+)
[2022-03-24 00:28] LABS: Color, Urine Yellow (Yellow); Glucose, Dipstick Normal (Normal); Ketone-Dipstick Negative (Negative); Leukocyte Esterase-Dipstick 25 /ul (Negative); Nitrite-Dipstick Positive (Negative); Occult Blood-Urine 10 /ul (Negative); Protein-Dipstick Negative (Negative); Urine Bilirubin Dipstick Negative (Negative); Urine Clarity Clear (Clear); Urine Urobilinogen Normal (Normal)
[2022-03-24 00:34] LABS: Bacteria 3+ /hpf (None Seen); Red Blood Cells-Urine 0-5 SEEN /hpf (0-5); Squamous Epithelial Cells - UA 0-5 SEEN /hpf (5-10); White Blood Cells 0-5 SEEN /hpf (0-5)
--- NOTE | 2022-03-24 02:17 | NURSING ---
left a message asking pt's daughter, Leelee, to return my call. Pt doesn't know her med list, but states her daughter would know her med list.
[2022-03-24] MEDS: Ondansetron 4 MG/2 ML Vial IV (02:30)
[2022-03-24] MEDS: 0.9% Saline Lock 10 ML Syringe IV ×2 (02:30→04:23)
[2022-03-24] MEDS: Morphine 2 MG/ML Syringe IV (02:30)
[2022-03-24] MEDS: 0.9% Normal Saline 1,000 ML 100 ML IV ×2 (02:31→16:07)
[2022-03-24] MEDS: Bisacodyl 10 MG Suppository RC (02:33)
[2022-03-24] MEDS: hydrALAZINE 20 MG/ML Vial 10 MG IV (04:23)
--- NOTE | 2022-03-24 05:45 | RAD_ITS ---
INDICATION: sbo EXAMINATION/TECHNIQUE: X-RAY - XR Abdomen W/ Decub and/or Erect Views COMPARISON: None FINDINGS: BOWEL GAS PATTERN: Non-obstructive. No bowel or stomach distention. FREE AIR: None. ORGANOMEGALY: Not seen. CALCIFICATIONS: No abnormal calcifications observed. LOWER CHEST: No acute pathology. BONES AND SOFT TISSUES: No acute bony abnormality. Residual contrast in the bilateral renal collecting systems and urinary bladder. RAD/Abd Decub and/or Erect(Portabl IMPRESSION: Non-obstructive bowel gas pattern. Electronically Signed: Juan C Strickland MD at 16:52 EST ,
[2022-03-24] MEDS: Menthol/Lanolin/Calamine/Znox 113 GM Tube 1 APPLIC TOPICAL ×3 (06:29→21:30)
[2022-03-24] MEDS: Nystatin Powder 15gm Bottle 1 APPLIC TOPICAL ×3 (06:29→21:47)
[2022-03-24 06:50] LABS: Bedside Glucose 145 mg/dL (74-106)
[2022-03-24 07:22] LABS: Absolute Lymphocyte Count 0.83 X10^3/uL (0.83-4.51); Absolute Neutrophil Count 6.9 X10^3/uL (2.0-7.7); Basophil# 0.01 X10^3/uL; Basophil% 0.1 % (0-1); Eosinophil# 0.07 X10^3/uL; Eosinophils% 0.8 % (0-5); Hematocrit 38.2 % (37-47); Hemoglobin 12.5 g/dL (12.0-15.0); Lymphocyte # 0.83 X10^3/ul (0.83-4.51); Mean Corp Hgb Conc 32.7 g/dL (32-36); Mean Corpuscular Hgb 29.4 pg (27.0-32.0); Mean Corpuscular Volume 89.9 fL (81-99); Mean Platelet Vol. 9.1 fl (6.2-12.0); Monocyte# 0.53 X10^3/uL; Monocyte% 6.4 % (0-10); NRBC Flagged by Analyzer 0 % (0-5); Neutrophil # 6.87 X10^3/uL (2.7-7.7); Neutrophil % 82.5 % (47-70); Platelet Count 246 K/mm3 (150-450); RBC Distribution Width CV 12.8 % (11.6-14.6); RBC Distribution Width SD 41.9 fl (35.1-43.9); Red Blood Count 4.25 M/mm3 (4.2-5.4); White Blood Count 8.3 K/mm3 (4.4-11.0)
[2022-03-24 07:42] LABS: Anion Gap 5 (5-15); BUN 23 mg/dL (7-18); BUN/Creat Ratio 27.3 RATIO (10-20); Calcium,Total 8.8 mg/dL (8.5-10.1); Chloride 105 mmol/L (98-107); Creatinine, Serum 0.84 mg/dL (0.55-1.02); EST Glomerular Filtration Rate 68 mL/min (>60); Est Glom Filt Rate - Afr Amer 83 mL/min (>60); Estimated Creatinine Clearance 45.84 ml/min; Glucose 159 mg/dL (74-106); Potassium 3.5 mmol/L (3.5-5.1); Sodium Level 139 mmol/L (136-145)
--- NOTE | 2022-03-24 09:08 | PCM.PN.SRG ---
Subjective Subjective Patient reports she is passing flatus and had 2 bowel movements after the suppository. She denies any abdominal pain this morning and she denies any nausea or vomiting. Objective Data Objective Data Vital Signs: Vital Signs Temp Pulse Resp BP Pulse Ox O2 Del Method O2 Flow Rate 98.1 F 64 18 122/56 H 99 Room Air 2 03/24/22 06:44 03/24/22 06:44 03/24/22 06:44 03/24/22 06:44 03/24/22 06:44 03/24/22 06:44 03/24/22 02:47 Oxygen Flow Rate (L/min) 2 Oxygen Delivery Method Room Air Weight: 171 lb 15.369 oz Body Mass Index (BMI) 27.7 Intake & Output: Intake and Output for Last 24 Hours 03/22/22 03/23/22 03/24/22 23:59 23:59 23:59 Intake Total 1311.66 / 1311.66 Balance 1311.66 / 1311.66 Lab / Micro Data Result Diagrams: 03/24/22 06:35 03/24/22 06:35 Labs: Laboratory Results - last 24 hr 03/23/22 19:55: WBC 7.1, RBC 4.81, Hgb 13.6, Hct 43.3, MCV 90.0, MCH 28.3, MCHC 31.4 L, RDW Std Deviation 41.7, RDW Coeff of Marleni 12.6, Plt Count 282, MPV 9.2, Immature Gran % (Auto) 0.300, Neut % (Auto) 61.1, Lymph % (Auto) 28.1, [place] % (Auto) 8.7, Eos % (Auto) 1.4, Baso % (Auto) 0.4, Absolute Neuts (auto) 4.3, Absolute Lymphs (auto) 1.99, Nucleated RBC % 0 03/23/22 19:55: Sodium 139, Potassium 3.6, Chloride 102, Carbon Dioxide 31.0, Anion Gap 6, BUN 28 H, Creatinine 0.84, Estim Creat Clear Calc 42.28, Est GFR (MDRD) Af Amer 83, Est GFR (MDRD) Non-Af 68, BUN/Creatinine Ratio 33.3 H, Glucose 131 H, Calcium 9.8, Total Bilirubin 0.40, AST 11 L, ALT 18, Alkaline Phosphatase 106, Total Protein 8.1, Albumin 4.0, Globulin 4.1, Albumin/Globulin Ratio 1.0, Lipase 166 03/23/22 20:11: Lactic Acid 1.9 03/24/22 00:20: Urine Color Yellow, Urine Clarity Clear, Urine pH 7.0, Ur Specific Whitman 1.010, Urine Protein Negative, Urine Glucose (UA) Normal, Urine Ketones Negative, Urine Occult Blood 10 H, Urine Nitrite Positive H, Urine Bilirubin Negative, Urine Urobilinogen Normal, Ur Leukocyte Esterase 25 H, Urine RBC 0-5 SEEN, Urine WBC 0-5 SEEN, Ur Squamous Epith Cells 0-5 SEEN, Urine Bacteria 3+, Urine Mucus 0 SEEN 03/24/22 06:30: POC Glucose 145 H 03/24/22 06:35: WBC 8.3, RBC 4.25, Hgb 12.5, Hct 38.2, MCV 89.9, MCH 29.4, MCHC 32.7, RDW Std Deviation 41.9, RDW Coeff of Marleni 12.8, Plt Count 246, MPV 9.1, Immature Gran % (Auto) 0.200, Neut % (Auto) 82.5 H, Lymph % (Auto) 10.0 L, [place] % (Auto) 6.4, Eos % (Auto) 0.8, Baso % (Auto) 0.1, Absolute Neuts (auto) 6.9, Absolute Lymphs (auto) 0.83, Nucleated RBC % 0 03/24/22 06:35: Sodium 139, Potassium 3.5, Chloride 105, Carbon Dioxide 29.0, Anion Gap 5, BUN 23 H, Creatinine 0.84, Estim Creat Clear Calc 45.84, Est GFR (MDRD) Af Amer 83, Est GFR (MDRD) Non-Af 68, BUN/Creatinine Ratio 27.3 H, Glucose 159 H, Calcium 8.8 Radiography Diagnostic Testing: Radiology Impression Abdomen/Pelvis CT 03/23/22 20:07 IMPRESSION: Moderate dilatation of proximal small bowel similar to prior study but with less distention. Distention ends at the level of the small bowel anastomotic sutures. This finding may reflect a recurrent source of partial obstruction. Colonic fecal burden consistent with clinical constipation. Electronically Signed: Juan C Strickland MD at 21:42 EST Reading Location ID and State: [facility] / [place] Tel , Service support , Physical Exam Const no apparent distress Resp normal respiratory effort GI soft to palpation and non-tender Inspection: Negative for abdominal distention Assessment & Plan Assessment/Plan (1) Partial obstruction of small intestine: PLAN: The patient is having no abdominal pain this morning and I will order a small bowel follow-through. I discussed this with the patient and the patient's daughter. As long as the small bowel follow-through shows passage of contrast I will start a clear liquid diet today. If there is no patches of contrast then I will possibly wait another 24 hours that she does have a very hostile abdomen and if there is no passages and likely surgery tomorrow. (2) Urinary tract infection: PLAN: Patient's UA shows positive nitrates as well as positive bacteria. I will start ceftriaxone. She has several antibiotic allergies I will start Benadryl for the itching that is her reaction to cephalosporins. Caleb Hanna MD Pager: [facility] [address] [place] [address], [address] [place] [address] Office:
[2022-03-24] MEDS: Ceftriaxone 1 GM/50 ML BAG IV (10:55)
[2022-03-24 12:05] LABS: Bedside Glucose 162 mg/dL (74-106)
--- NOTE | 2022-03-24 15:30 | CASEMGMT ---
RN?CM?TOPOGRAPHY TECHNICIAN?CM?to room to meet with patient for initial transition planning/care coordination?assessment.?RN?CM?introduced self and role at [facility].? Pt voices understanding and consents to?assessment?at this time.? Pt resting in bed in no distress at this time.? Pt is A/O at this time and answers all questions appropriately, but VICENTA MARIE noted she does have dementia and is forgetful. Care providers, pharmacy, and demographics verified/updated at this time. PCP: Dr Ocampo Specialists: Dr Batista-ALARM INSTALLATION TECHNICIAN Preferred [facility]acy[facility] Insurance: [employer] Mobile Prescription Benefit:?Yes LNOK: DtrZo Living Arrangements: Lives alone in one-story home w/basement w/one step to enter. Pt states she usually is able to bath/dress herself. Her dtr comes about every other day to assist her @ home, as needed, and will come more often if she calls her. She states her dtr gets her groceries and manages her medications for her and prepares meals. Pt states she warms her meals up in microwave and does her own laundry. Transportation: Family DME: States has the following DME:?shower chair, cane, walker, rollator, medical alert. ?Pt states no need for further DME at this time.? HHC/SNF: [facility] (she thinks was [place] [facility]). Noted in handoff pt required 2 assist w/walker when up. PT/OT orders placed and to see pt tomorrow. Pt stated she would like to return home, if possible, but if therapy recommends SNF, then she would be willing to go to a SNF. She states, if she is able to return home, she would be interested in C. Pt gave permission for VICENTA MARIE to call her dtrZo to discuss discharge planning. Call to Zo at this time. Zo made aware therapy will eval pt tomorrow and pt agreeable to SNF if recommended. Also made aware, if pt able to return home she would like C. Zo agreeable to either one, depending on how she does w/therapy. Zo and pt made aware, if she is able to return home, and if she d/c's home before [place], that they would need to f/u with pt's PCP for HHC, as HHC offices are not open to be set up over the w/e. They voice understanding. Pt was provided w/list of local HHC agencies. Pt states she [facility]. Pt and dtr voice no further concerns/needs at this time.? PLAN:??TBD, pending PT/OT evals. SNF vs Home and pt/dtr to f/u with PCP re: HHC [place] LGEERN?RN?CM
--- NOTE | 2022-03-24 17:20 | NURSING ---
Metformin held per nursing policy she had IV contrast on 03/23.
[2022-03-24 19:36] LABS: Bedside Glucose 182 mg/dL (74-106)
[2022-03-24] MEDS: Methenamine Hippurate 1 GM Tablet PO (21:30)
[2022-03-24] MEDS: Venlafaxine HCl 75 MG Tablet PO (21:30)
[2022-03-25 02:30] VITALS: BP 160/68; PULSE 70; RESP 18; TEMP 36.7; O2SAT 98
[2022-03-25] MEDS: HYDROcodone Bitartrate/Apap 5/325 Tablet PO (04:07)
[2022-03-25] MEDS: Menthol/Lanolin/Calamine/Znox 113 GM Tube 1 APPLIC TOPICAL ×2 (04:08→15:04)
[2022-03-25] MEDS: Nystatin Powder 15gm Bottle 1 APPLIC TOPICAL ×2 (04:08→15:04)
[2022-03-25] MEDS: Levothyroxine 88 MCG Tablet PO (06:21)
[2022-03-25 07:05] LABS: Bedside Glucose 143 mg/dL (74-106)
[2022-03-25 08:24] VITALS: BP 137/48; PULSE 58; RESP 18; TEMP 36.6; O2SAT 99
[2022-03-25] MEDS: Multivitamin (Healthy Eyes) Capsule 1 CAP PO (08:26)
[2022-03-25] MEDS: Potassium Chloride Oral Tablet 20 MEQ 40 MEQ PO (08:26)
[2022-03-25] MEDS: Ascorbic Acid 500 MG Tablet 1000 MG PO (08:26)
--- NOTE | 2022-03-25 08:57 | PN.SURG_ITS ---
Subjective Subjective Patient tolerated full liquids with no nausea vomiting or abdominal pain. She had several large bowel movements and is passing flatus. Objective Data Objective Data Vital Signs: Vital Signs Temp Pulse Resp BP Pulse Ox O2 Del Method O2 Flow Rate 97.8 F 58 L 18 137/48 H 99 Room Air 2 03/25/22 08:24 03/25/22 08:24 03/25/22 08:24 03/25/22 08:24 03/25/22 08:24 03/25/22 08:24 03/24/22 02:47 Oxygen Flow Rate (L/min) 2 Oxygen Delivery Method Room Air Weight: 171 lb 15.369 oz Body Mass Index (BMI) 27.7 Intake & Output: Intake and Output for Last 24 Hours 03/23/22 03/24/22 03/25/22 23:59 23:59 23:59 Intake Total 2071.66 / 2311.66 540 / 540 Balance 2071.66 / 2311.66 540 / 540 Lab / Micro Data Result Diagrams: 03/24/22 06:35 03/24/22 06:35 Labs: Laboratory Results - last 24 hr 03/24/22 11:44: POC Glucose 162 H 03/24/22 19:14: POC Glucose 182 H 03/25/22 06:17: POC Glucose 143 H Radiography Diagnostic Testing: Radiology Impression Small Bowel X-Ray 03/24/22 00:00 IMPRESSION: No evidence of complete small bowel obstruction on this examination. Electronically Signed: Jadiel Mccracken MD at 12:06 EST , Abdomen X-Ray 03/24/22 05:45 IMPRESSION: Non-obstructive bowel gas pattern. Electronically Signed: Juan C Strickland MD at 16:52 EST , Physical Exam Const oriented x3 and no apparent distress Resp normal respiratory effort GI soft to palpation and non-tender Assessment & Plan Assessment/Plan (1) Partial obstruction of small intestine: (2) Urinary tract infection: QUALIFIERS: Urinary tract infection type: site unspecified Hematuria presence: without hematuria Qualified Code(s): N39.0 - Urinary tract infection, site not specified PLAN: Plan Patient seems to be doing well this morning. She tolerated full liquids and I will advance her to a regular diet. If she is doing she tolerates a regular diet we will discharge her home this afternoon. Patient also had signs of a UTI and I started on ceftriaxone yesterday. I will likely discharge her on oral antibiotics for a few days. Caleb Hanna MD Pager: [facility] [address] [place] [address], [address] [place] [address] Office:
--- NOTE | 2022-03-25 09:02 | PCM.DC.SUM ---
Providers Date of Admission: 03/23/22 Primary Care Physician: Dr. Da Ocampo MD Reason For Visit: SMALL BOWEL OBSTRUCTION Diagnosis Discharge Diagnosis (1) Partial obstruction of small intestine: Status: Acute Code(s): K56.600 - Partial intestinal obstruction, unspecified as to cause (2) Urinary tract infection: Status: Acute Code(s): N39.0 - Urinary tract infection, site not specified Qualifiers: Urinary tract infection type: site unspecified Hematuria presence: without hematuria Qualified Code(s): N39.0 - Urinary tract infection, site not specified Plan Patient seems to be doing well this morning. She tolerated full liquids and I will advance her to a regular diet. If she is doing she tolerates a regular diet we will discharge her home this afternoon. Patient also had signs of a UTI and I started on ceftriaxone yesterday. I will likely discharge her on oral antibiotics for a few days. Caleb Hanna MD Pager: [facility] [address] [place] [address], [address] [place] [address] Office: Medications at Discharge Home Medications metformin 500 mg tablet 500 mg PO TIDCM blood sugar 12/10/13 vit C 250 mg-vit E 90 mg-zinc 40 mg-copper 1 if-dfvhez-fcjegp capsule (PreserVision AREDS-2) 1,000 mg PO DAILY multivitamin 04/22/14 venlafaxine 75 mg tablet 75 mg PO BID depression 08/20/18 diphenhydramine HCl 25 mg capsule 12.5 mg PO QHS PRN Insomnia 11/09/18 ascorbic acid (vitamin C) 1,000 mg capsule,extended release 1,000 cap PO DAILY SUPPLEMENT 09/19/20 levothyroxine 88 mcg tablet 88 mcg PO DAILY THYROID 03/03/21 methenamine mandelate 1 gram tablet 1 g PO BID URINATION 03/03/21 hydrochlorothiazide 25 mg tablet 25 mg PO 1XD bp 03/24/22 menthol 0.44 %-zinc oxide 20.6 % topical ointment (Calmoseptine) 1 applic topical BID Check with primary doctor 03/24/22 potassium chloride 20 mEq tablet,extended release 40 meq PO DAILY Check with primary doctor 03/24/22 cefpodoxime 100 mg tablet 100 mg PO BID #10 tabs 03/25/22 Hospital Course Operations None Procedures None Summary of Care Provided Hospital Course: Patient was admitted with a possible bowel obstruction. Patient had dilated stomach and proximal small bowel with abdominal pain. Shortly after, to the hospital the abdominal pain resolved. Patient is small bowel follow-through showed easy contrast passage through this proximal area. Patient was started clear liquid diet and advance to a full liquid diet which she tolerated well. She tolerated full liquids and was having no abdominal pain and several bowel movements he was advanced to a regular diet and once time then she would be discharged home. Patient found to have UTI on admission and she was started on ceftriaxone. She tolerated the ceftriaxone without any rash and so she will be discharged home on a cephalosporin for 5 days for her UTI. Weight / BMI Weight Weight: 171 lb 15.369 oz Body Mass Index (BMI) 27.7 ABG / Lab / Microbiology Data Result Diagrams: 03/24/22 06:35 03/24/22 06:35 Laboratory: Laboratory Results - last 24 hr 03/24/22 11:44: POC Glucose 162 H 03/24/22 19:14: POC Glucose 182 H 03/25/22 06:17: POC Glucose 143 H Radiography Diagnostic Testing: Radiology Impression Small Bowel X-Ray 03/24/22 00:00 IMPRESSION: No evidence of complete small bowel obstruction on this examination. Electronically Signed: Jadiel Mccracken MD at 12:06 EST , Abdomen X-Ray 03/24/22 05:45 IMPRESSION: Non-obstructive bowel gas pattern. Electronically Signed: Juan C Strickland MD at 16:52 EST , D/C Instructions Discharge Diet: Light diet - advance as tolerated Discharge Activity: Return to Normal Activity Weight Bearing Status: Weight bearing as tolerated Call your doctor if your incision/area has: Increased Pain/ Swelling Call your doctor if you observe: Inability to have a bowel movement Please Follow Up With: Caleb Hanna MD When: Follow-up as needed [phone] Meaningful Use Info Meaningful Use Diagnoses (Choose all that apply): None applicable Discharge Plan Admission Admit Date/Time: 03/23/22 23:48 Attending Provider: Caleb Hanna Primary Care Provider: Da Ocampo Discharge Orders/Prescriptions Prescriptions: New cefpodoxime 100 mg tablet 100 mg PO BID Qty: 10 0RF Rx Instructions: must administer with a meal/food Continued metformin 500 MG tablet 500 mg PO TIDCM Label Comments: DIABETES PreserVision AREDS-2 1 EACH capsule 1,000 mg PO DAILY venlafaxine 75 MG tablet 75 mg PO BID diphenhydramine HCl 25 MG capsule 12.5 mg PO QHS PRN (Reason: Insomnia) ascorbic acid (vitamin C) 1,000 mg Capsule, Extended Release 1,000 cap PO DAILY levothyroxine 88 mcg tablet 88 mcg PO DAILY methenamine mandelate 1 gram tablet 1 g PO BID hydrochlorothiazide 25 mg tablet 25 mg PO 1XD Label Comments: TAKE 1 TABLET BY MOUTH ONCE DAILY menthol-zinc oxide [Calmoseptine] 0.44-20.6 % ointment 1 applic topical BID Protocol: *Topical Application Instructions APPLICATION INSTRUCTIONS: coccyx potassium chloride 20 mEq tablet extended release 40 meq PO DAILY Referrals / Follow Up: Da Ocampo MD [Primary Care Provider] - Disposition Disposition (needs filled in before D/C Order can be placed): Home, Self Care
[2022-03-25] MEDS: hydroCHLOROthiazide 25 MG Tablet PO (09:58)
[2022-03-25] MEDS: Venlafaxine HCl 75 MG Tablet PO (09:58)
[2022-03-25] MEDS: Methenamine Hippurate 1 GM Tablet PO (09:58)
[2022-03-25] MEDS: Ceftriaxone 1 GM/50 ML BAG IV (10:23)
[2022-03-25 11:50] LABS: Bedside Glucose 231 mg/dL (74-106)
[2022-03-25] MEDS: Insulin Lispro 100 UNIT/ML INSULN.PEN SC (15:02)
[2022-03-25 15:05] VITALS: BP 123/63; PULSE 64; RESP 18; TEMP 36.8; O2SAT 98
--- NOTE | 2022-03-28 11:12 | CASEMGMT ---
VICENTA MARIE follow-up: Late entry for 03/27/22: Pt discharged to home and in need of home health care with [facility] being pt's first choice. Referral called to Sandy at [facility]. Case to be reviewed for acceptance. Entry for 03/28/22 at 1114: Call received from Sandy at [facility] with notification that pt has been accepted. Sandy will follow up with pt's PCP for SOC order. Attempted to contact pt to inform of acceptance but phone rang multiple times without answer or VM. Call placed to pt's daughter Leelee who was then informed of acceptance and plan for home health. Leelee expressed understanding and is agreeable with the plan. States pt has been doing ok since discharge and denied any current concerns or questions at this time. William Hager RN CM
== END 2022-03-25 17:04 | disposition home or self-care (01) | DRG 389 ==
LOC: ED 23:56 → MS3 03-24 01:10
PROVIDERS: Admitting Provider Surgery; Emergency Provider Emergency Medicine; PCP Family Medicine; Visit Provider Surgery
DX: K56.600 Partial intestinal obstruction, unspecified as to cause (principal); N39.0 Urinary tract infection, site not specified; E03.9 Hypothyroidism, unspecified; E11.9 Type 2 diabetes mellitus without complications; I10 Essential (primary) hypertension; B96.20 Unspecified Escherichia coli [E. coli] as the cause of diseases classified elsewhere; Z98.0 Intestinal bypass and anastomosis status; Z79.82 Long term (current) use of aspirin; Z79.84 Long term (current) use of oral hypoglycemic drugs; Z79.899 Other long term (current) drug therapy
CPT/HCPCS: 36415; 74019; 74177; 74250; 80048; 80053; 81001; 82962; 83605; 83690; 85025; 87077; 87086; 87088; 87186; 93005; 97161; 97165; 97802; 99285; J7030; Q9967; A4216; J2405

== ENCOUNTER 2022-07-18 09:09 | Emergency (ER) | payer MEDICARE, OTHER, SELFPAY ==
[2022-07-18 09:12] VITALS: BP 142/66; PULSE 62; RESP 18; TEMP 36.3; O2SAT 99; BMI 30.6
--- NOTE | 2022-07-18 09:29 | EKG12_ITS ---
Test Reason : DIZZINESS Blood Pressure : / mmHG Vent. Rate : 062 BPM Atrial Rate : 062 BPM P-R Int : 246 ms QRS Dur : 126 ms QT Int : 486 ms P-R-T Axes : 005 -25 125 degrees QTc Int : 493 ms Sinus rhythm with 1st degree A-V block Left ventricular hypertrophy with QRS widening and repolarization abnormality ( R in aVL , Lance pr oduct ) Abnormal ECG Confirmed by JOSE JUNG, ZAIRE ([id number]), publication editor KRISTEL HILARIO ([id number]) on 07/19/2022 9:02:42 AM Referred By: Confirmed By:ZAIRE GARCIA MD
--- NOTE | 2022-07-18 09:30 | EX.ED.DYSGE1 ---
HPI History of Present Illness Chief Complaint: Dizziness Narrative Narrative: 87-year-old female presenting with generalized weakness. Patient states that she typically would ambulate with a walker. She reports to me on Saturday of this week which is 2 days ago she had a fall. She reports that she was using her walker in front of the couch and felt a feeling come over her that made her think she was going to fall so she moved towards the couch and did fall onto the couch. She denies LOC. She denies any chest pain or shortness of breath. No nausea or vomiting. She states since that time she has been up and ambulatory with her walker. Earlier today she experienced a similar event and again ended up on the couch. Patient denies any fever or chills at home. She states been eating and drinking normally. She is making normal urine and stool. She does report history of UTIs. [facility] Medical History Anxiety Cancer Diabetes Heart murmur Hypertension Hypothyroidism Partial obstruction of small intestine Home Medications metformin 500 mg tablet 500 mg PO TIDCM blood sugar 12/10/13 [History Last Taken 03/23/22] vit C 250 mg-vit E 90 mg-zinc 40 mg-copper 1 [id number] capsule (PreserVision AREDS-2) 1,000 mg PO DAILY multivitamin 04/22/14 [History Last Taken 03/23/22] venlafaxine 75 mg tablet 75 mg PO BID depression 08/20/18 [History Last Taken 03/23/22] diphenhydramine HCl 25 mg capsule 12.5 mg PO QHS PRN Insomnia 11/09/18 [History Last Taken Unknown] ascorbic acid (vitamin C) 1,000 mg capsule,extended release 1,000 cap PO DAILY SUPPLEMENT 09/19/20 [History Last Taken 03/23/22] levothyroxine 88 mcg tablet 88 mcg PO DAILY THYROID 03/03/21 [History Last Taken 03/23/22] methenamine mandelate 1 gram tablet 1 g PO BID URINATION 03/03/21 [History Last Taken 03/23/22] hydrochlorothiazide 25 mg tablet 25 mg PO 1XD bp 03/24/22 [History Last Taken Unknown] menthol 0.44 %-zinc oxide 20.6 % topical ointment (Calmoseptine) 1 applic topical BID Check with primary doctor 03/24/22 [History Last Taken Unknown] potassium chloride 20 mEq tablet,extended release 40 meq PO DAILY Check with primary doctor 03/24/22 [History Last Taken 03/23/22] cefpodoxime 100 mg tablet 100 mg PO BID #10 tabs 03/25/22 [Rx Last Taken Unknown] nitrofurantoin monohydrate/macrocrystals 100 mg capsule (Macrobid) 100 mg PO Q12H 5 days #10 caps 07/18/22 [Rx Last Taken Unknown] Allergy/AdvReac Type Severity Reaction Status Date / Time amoxicillin [From Augmentin] Allergy Itching Verified 07/18/22 09:15 cefdinir Allergy Rash Verified 07/18/22 09:15 ciprofloxacin [From Cipro] Allergy Swelling Verified 07/18/22 09:15 clavulanic acid Allergy Itching Verified 07/18/22 09:15 [From Augmentin] doxycycline calcium Allergy Unknown Verified 07/18/22 09:15 [From Vibramycin] doxycycline hyclate Allergy Unknown Verified 07/18/22 09:15 [From Vibramycin] doxycycline monohydrate Allergy Unknown Verified 07/18/22 09:15 [From Vibramycin] fluticasone Allergy Unknown Verified 07/18/22 09:15 influenza virus vaccine, Allergy Swelling Verified 07/18/22 09:15 specific [Influenza Virus Vacc,Specific] losartan Allergy Angioedema Verified 07/18/22 09:15 pneumococcal vaccine Allergy Rash Verified 07/18/22 09:15 [Pneumococcal Vaccine] promethazine HCl Allergy Unknown Verified 07/18/22 09:15 [From Phenergan] tetracycline [Tetracycline] Allergy Unknown Verified 07/18/22 09:15 cephalexin [From Keflex] AdvReac Rash Verified 07/18/22 09:15 metronidazole [From Flagyl] AdvReac Unknown Verified 07/18/22 09:15 sulfamethoxazole AdvReac Rash Verified 07/18/22 09:15 [From Bactrim] trimethoprim [From Bactrim] AdvReac Rash Verified 07/18/22 09:15 Surgical History History of cataract surgery History of exploratory laparotomy History of hysterectomy Hx of tonsillectomy Status post small bowel resection Social History household members: none Smoking Status: Never smoker alcohol intake: current alcohol intake frequency: holidays/special occasions only substance use type: does not use ROS ROS ED Constitutional Constitutional ED: Denies chills, fever(s) or sweats Eyes Eyes: Denies blurry vision or change in vision ENT ENT ED: Denies ear pain or sore throat Cardiovascular Cardiovascular: Denies chest pain, palpitations or racing heartbeat Respiratory/Chest Respiratory/Chest: Denies cough, dyspnea or sputum Gastrointestinal Gastrointestinal: Denies abdominal pain, constipation, diarrhea, nausea or vomiting Genitourinary Genitourinary ED: Denies dysuria, hematuria or urinary frequency Musculoskeletal Musculoskeletal: Denies arthralgias, myalgias or neck pain Integumentary Denies abscess, Abrasions or rash Neurologic Neurologic: Denies headache(s), paresthesias or weakness Psychiatric Psychiatric: Denies anxiety, depression, suicidal ideation or suicidal thoughts Endocrine Endocrinology: Denies polydipsia or polyuria EXAM Physical Exam Const Vital Signs: 07/18/22 09:12 07/18/22 09:47 07/18/22 10:26 Temperature 97.4 F L Temperature Source Temporal Pulse Rate 62 Pulse Rate [Lying] 59 L Pulse Rate [Sitting (for 1 minute prior to obtaining)] 59 L Pulse Rate [Standing (for 1 minute prior to obtaining)] 69 Respiratory Rate 18 Respiratory Pattern Normal Blood Pressure 142/66 H Blood Pressure [Lying] 176/58 H Blood Pressure [Sitting (for 1 minute prior to obtaining)] 173/62 H Blood Pressure [Standing (for 1 minute prior to obtaining)] 181/75 H Blood Pressure Mean 91 Blood Pressure Mean [Lying] 97 Blood Pressure Mean [Sitting (for 1 minute prior to obtaining)] 99 Blood Pressure Mean [Standing (for 1 minute prior to obtaining)] 110 Pulse Ox 99 Oxygen Delivery Method Room Air 07/18/22 11:10 Temperature Temperature Source Pulse Rate 60 Pulse Rate [Lying] Pulse Rate [Sitting (for 1 minute prior to obtaining)] Pulse Rate [Standing (for 1 minute prior to obtaining)] Respiratory Rate 20 H Respiratory Pattern Blood Pressure 174/50 H Blood Pressure [Lying] Blood Pressure [Sitting (for 1 minute prior to obtaining)] Blood Pressure [Standing (for 1 minute prior to obtaining)] Blood Pressure Mean 91 Blood Pressure Mean [Lying] Blood Pressure Mean [Sitting (for 1 minute prior to obtaining)] Blood Pressure Mean [Standing (for 1 minute prior to obtaining)] Pulse Ox 95 Oxygen Delivery Method Room Air Positive well nourished General Appearance ED: NAD; Negative for pallor HEENT Reports moist mucous membranes Eyes PERRL and EOMs intact bilaterally Neck no lymphadenopathy Chest Wall inspection of chest normal Resp normal respiratory effort and clear to auscultation bilaterally Auscultation: Negative for rales, rhonchi or wheezes Cardio regular rate and regular rhythm GI normal to inspection, nondistended, normoactive bowel sounds Palpation: soft Back/Spine no CVA tenderness Neuro oriented x3, CN's II-XII intact bilaterally and no sensory deficits noted Motor Exam: general weakness Psych mental status grossly normal Skin no rashes or lesions noted General Skin Exam: Negative for jaundice or pallor MDM MDM MDM Narrative Medical decision making narrative: Patient presenting with generalized weakness and 2 episodes of at least near syncope. She denies LOC. No visual complaints, headache, slurred speech, unilateral weakness, paresthesias. Patient denies any chest pain or shortness of breath. She not had any nausea or vomiting. She denies fever or chills. Differential includes orthostatic hypotension, dysrhythmia, ACS, dehydration, hypoglycemia, hyperglycemia, electrolyte abnormality, intracranial hemorrhage, UTI, pneumonia. BC to assess white blood cell count, hemoglobin, differential. CMP to assess liver function, renal function, glucose, anion gap, electrolytes. High-sensitivity troponin, EKG, chest x-ray to assess for cardiopulmonary source. Orthostatic vital signs will be assessed. Urinalysis as well. We will obtain a CT of the brain as the patient has been falling and did hit her head although she claims she did not lose consciousness. CT of the brain was negative for acute findings. EKG on my interpretation shows sinus rhythm with first-degree AV block. No signs of ischemia. High-sensitivity troponin 12. Orthostatic vital signs were negative. Chest x-ray on my interpretation shows no acute cardiopulmonary process. Radiologist services and agrees.CBC and CMP unremarkable. Urinalysis does show some bacteria although it slightly contaminated. There is 500 leukocyte esterase. No nitrites. Patient discussed with Dr. Ocampo her primary care physician, who recommended treating her for UTI as she often does have 1. She started on Macrobid at his request. First dose given in the ER. At this point the patient is stable for discharge. Impression: 1. Generalized weakness 2. UTI 3. Fall Lab Data Attestation: I reviewed the patient's lab results. Labs: Laboratory Results - last 24 hr 07/18/22 07/18/22 07/18/22 09:40 09:40 10:20 WBC RBC Not Reportable Hgb Not Reportable Hct Not Reportable MCV Not Reportable MCH Not Reportable MCHC Not Reportable RDW Std Deviation Not Reportable RDW Coeff of Marleni Not Reportable Plt Count Not Reportable Neut % (Auto) Not Reportable Absolute Neuts (auto) Not Reportable Sodium 137 Potassium 3.6 Chloride 104 Carbon Dioxide 28.0 Anion Gap 5 BUN 16 Creatinine 0.68 Estim Creat Clear Calc 36.34 Est GFR (MDRD) Af Amer 105 Est GFR (MDRD) Non-Af 87 BUN/Creatinine Ratio 23.5 H Glucose 120 H Calcium 9.3 Total Bilirubin 0.50 AST 11 L ALT 19 Alkaline Phosphatase 106 Troponin I High Sens 12 Total Protein 7.0 Albumin 3.3 Globulin 3.7 Albumin/Globulin Ratio 0.9 Urine Color Yellow Urine Clarity Clear Urine pH 7.0 Ur Specific [place] 1.005 Urine Protein Negative Urine Glucose (UA) Normal Urine Ketones Negative Urine Occult Blood 150 H Urine Nitrite Negative Urine Bilirubin Negative Urine Urobilinogen Normal Ur Leukocyte Esterase 500 H Urine RBC 0-5 SEEN Urine WBC 10-25 SEEN Ur Squamous Epith Cells 0-5 SEEN Urine Bacteria 2+ Urine Mucus 0 SEEN Radiography Diagnostic Testing: Clinical Impression(s) from Imaging Studies Brain CT 07/18/22 10:00 IMPRESSION: Chronic involutional changes of the brain. Electronically Signed: Kyle Oates MD at 10:56 EDT , Chest X-Ray 07/18/22 10:00 IMPRESSION: Stable linear density in the left midlung suggestive of scarring. Electronically Signed: Kyle Oates MD at 10:25 EDT , Discharge Plan Triage Chief Complaint: Dizziness ED Provider: Chris Ayala Dx/Rx/DC Orders Instructions: ED Cystitis Female Adult Prescriptions: New nitrofurantoin monohyd/m-cryst [Macrobid] 100 mg capsule 100 mg PO Q12H 5 Days Qty: 10 0RF Rx Instructions: must administer with a meal/food No Action metformin 500 MG tablet 500 mg PO TIDCM Label Comments: DIABETES PreserVision AREDS-2 1 EACH capsule 1,000 mg PO DAILY venlafaxine 75 MG tablet 75 mg PO BID diphenhydramine HCl 25 MG capsule 12.5 mg PO QHS PRN (Reason: Insomnia) ascorbic acid (vitamin C) 1,000 mg Capsule, Extended Release 1,000 cap PO DAILY levothyroxine 88 mcg tablet 88 mcg PO DAILY methenamine mandelate 1 gram tablet 1 g PO BID hydrochlorothiazide 25 mg tablet 25 mg PO 1XD Label Comments: TAKE 1 TABLET BY MOUTH ONCE DAILY menthol-zinc oxide [Calmoseptine] 0.44-20.6 % ointment 1 applic topical BID Protocol: *Topical Application Instructions APPLICATION INSTRUCTIONS: coccyx potassium chloride 20 mEq tablet extended release 40 meq PO DAILY cefpodoxime 100 mg tablet 100 mg PO BID Qty: 10 0RF Rx Instructions: must administer with a meal/food Primary Care Provider: Da Ocampo Referrals: Da Ocampo MD [Primary Care Provider] - Disposition Disposition: Home, Self Care Discharge Date/Time: 07/18/22 13:18
--- NOTE | 2022-07-18 10:00 | CT_ITS ---
STUDY: CT BRAIN WITHOUT CONTRAST REASON FOR EXAM: Female, 87 years old. falls RADIATION DOSAGE (If Supplied By Facility): CTDIvol = ( 44.99 ) mGy, DLP = ( 863.60 ) mGycm TECHNIQUE: Transaxial CT imaging of the brain was performed without administration of intravenous contrast material. Individualized dose optimization techniques were used for this CT. COMPARISON: Comparison is made with prior examination dated September 21, 2017. FINDINGS: Normal soft tissue structures. Normal calvarium. There is mild cerebral atrophy with widening of the extra-axial spaces and ventricular dilatation. There are areas of decreased attenuation within the white matter tracts of the supratentorial brain, consistent with microvascular disease changes. There are small punctate calcifications of the basal ganglia which are seen in the aging brain as a normal variant. Normal brainstem. Normal cerebellum. There is no intracranial hemorrhage. There are no findings of an acute ischemic infarction. Stable 1.5 cm mucosal polyp or retention cyst in the posterior aspect of the left maxillary sinus. CT/Brain/Head without Contrast IMPRESSION: Chronic involutional changes of the brain. Electronically Signed: Kyle Oates MD at 10:56 EDT ,
--- NOTE | 2022-07-18 10:00 | RAD_ITS ---
STUDY: X-RAY CHEST REASON FOR EXAM: Female, 87 years old. Weakness and dizziness. TECHNIQUE: Single AP portable view of the chest. COMPARISON: Comparison is made with prior study dated March 01, 2021. FINDINGS: EKG electrodes are seen. Stable linear density in the left midlung suggestive of scarring. There is no demonstrated pleural abnormality. Normal size heart. Normal mediastinum and philippe. Normal visualized pulmonary arteries. There is atherosclerotic tortuosity of the aortic arch and descending thoracic aorta. Normal visualized thoracic spine. There is degenerative osteoarthritis of the bilateral shoulders. There is no demonstrated abnormality of the visualized soft tissue structures of the upper abdomen. RAD/Chest 1 View (Portable) IMPRESSION: Stable linear density in the left midlung suggestive of scarring. Electronically Signed: Kyle Oates MD at 10:25 EDT ,
[2022-07-18 10:07] LABS: ALB/GLOB Ratio 0.9 RATIO (0.9-2.4); AST(SGOT) 11 U/L (15-37); Alanine Aminotransfer ALT/SGPT 19 U/L (13-56); Albumin, Serum 3.3 g/dL (3.2-5.0); Alkaline Phosphatase 106 U/L (45-117); Anion Gap 5 (5-15); BUN 16 mg/dL (7-18); BUN/Creat Ratio 23.5 RATIO (10-20); Calcium,Total 9.3 mg/dL (8.5-10.1); Chloride 104 mmol/L (98-107); Creatinine, Serum 0.68 mg/dL (0.55-1.02); EST Glomerular Filtration Rate 87 mL/min (>60); Est Glom Filt Rate - Afr Amer 105 mL/min (>60); Estimated Creatinine Clearance 36.34 ml/min; Globulin 3.7 g/dL (2.2-4.2); Glucose 120 mg/dL (74-106); Potassium 3.6 mmol/L (3.5-5.1); Sodium Level 137 mmol/L (136-145); Troponin-I HS 12 pg/mL (3.0-54.0)
[2022-07-18 10:25] LABS: Mucous, Urine 0 SEEN /hpf (<or=2+)
[2022-07-18 10:26] VITALS: BP 173/62; BP 176/58; BP 181/75; PULSE 59; PULSE 69
[2022-07-18 10:30] LABS: Color, Urine Yellow (Yellow); Glucose, Dipstick Normal (Normal); Ketone-Dipstick Negative (Negative); Leukocyte Esterase-Dipstick 500 /ul (Negative); Nitrite-Dipstick Negative (Negative); Occult Blood-Urine 150 /ul (Negative); Protein-Dipstick Negative (Negative); Specific Gravity, Urine 1.005 (1.002-1.030); Urine Bilirubin Dipstick Negative (Negative); Urine Clarity Clear (Clear); Urine Urobilinogen Normal (Normal)
[2022-07-18 11:00] LABS: Bacteria 2+ /hpf (None Seen); White Blood Cells 10-25 SEEN /hpf (0-5)
[2022-07-18 11:01] LABS: Red Blood Cells-Urine 0-5 SEEN /hpf (0-5); Squamous Epithelial Cells - UA 0-5 SEEN /hpf (5-10)
[2022-07-18 11:10] VITALS: BP 174/50; PULSE 60; RESP 20; O2SAT 95
[2022-07-18] MEDS: Nitrofurantoin Macrocrystals 100 MG Capsule PO (13:02)
== END 2022-07-18 13:18 | disposition home or self-care (01) ==
PROVIDERS: Emergency Provider Student in an Organized Health Care Education/Training Program; PCP Family Medicine; Visit Provider Student in an Organized Health Care Education/Training Program
DX: R53.1 Weakness (principal); N39.0 Urinary tract infection, site not specified
CPT/HCPCS: 70450; 71045; 80053; 81001; 84484; 85025; 87077; 87086; 87088; 87186; 93005; 99285; P9612; A4216

== ENCOUNTER 2022-07-22 20:13 | Emergency (ER) | payer MEDICARE, OTHER, SELFPAY ==
[2022-07-22 20:14] VITALS: BP 134/76; PULSE 62; RESP 18; TEMP 36.6; O2SAT 98; BMI 29.4
--- NOTE | 2022-07-22 20:33 | EDS_ITS ---
HPI <ADRIÁN Thompson - Last Filed: 07/22/22 21:35> History of Present Illness Chief Complaint: Complaint Narrative Narrative: Patient is an 87-year-old female with history of macular degeneration, renal sufficiency, hypertension who lives by herself and gets around with a walker presents the emergency department to ensure that her urinary tract infection is being taken care of. Patient was seen here on July 18, 2022, she was diagnosed with a UTI, she was started on Macrobid. I did send a culture for her urine. The culture did grow out E. coli, she got a call today that it did grow out E. coli, she states she got very anxious, and called the ambulance to make sure that she is being treated correctly. Patient denies any fever or chills. Patient denies any dysuria. Patient states that she feels intermittent weakness however this has been ongoing. Patient was able to do her daily activities today. She is here for evaluation [facility] <ADRIÁN Thompson - Last Filed: 07/22/22 21:35> [facility] Medical History Anxiety Cancer Diabetes Heart murmur Hypertension Hypothyroidism Partial obstruction of small intestine Home Medications metformin 500 mg tablet 500 mg PO TIDCM blood sugar 12/10/13 [History Last Taken 03/23/22] vit C 250 mg-vit E 90 mg-zinc 40 mg-copper 1 [id number] capsule (PreserVision AREDS-2) 1,000 mg PO DAILY multivitamin 04/22/14 [History Last Taken 03/23/22] venlafaxine 75 mg tablet 75 mg PO BID depression 08/20/18 [History Last Taken 03/23/22] diphenhydramine HCl 25 mg capsule 12.5 mg PO QHS PRN Insomnia 11/09/18 [History Last Taken Unknown] ascorbic acid (vitamin C) 1,000 mg capsule,extended release 1,000 cap PO DAILY SUPPLEMENT 09/19/20 [History Last Taken 03/23/22] levothyroxine 88 mcg tablet 88 mcg PO DAILY THYROID 03/03/21 [History Last Taken 03/23/22] methenamine mandelate 1 gram tablet 1 g PO BID URINATION 03/03/21 [History Last Taken 03/23/22] hydrochlorothiazide 25 mg tablet 25 mg PO 1XD bp 03/24/22 [History Last Taken Unknown] menthol 0.44 %-zinc oxide 20.6 % topical ointment (Calmoseptine) 1 applic topical BID Check with primary doctor 03/24/22 [History Last Taken Unknown] potassium chloride 20 mEq tablet,extended release 40 meq PO DAILY Check with primary doctor 03/24/22 [History Last Taken 03/23/22] cefpodoxime 100 mg tablet 100 mg PO BID #10 tabs 03/25/22 [Rx Last Taken Unknown] nitrofurantoin monohydrate/macrocrystals 100 mg capsule (Macrobid) 100 mg PO Q12H 5 days #10 caps 07/18/22 [Rx Last Taken Unknown] Allergy/AdvReac Type Severity Reaction Status Date / Time amoxicillin [From Augmentin] Allergy Itching Verified 07/22/22 20:14 cefdinir Allergy Rash Verified 07/22/22 20:14 ciprofloxacin [From Cipro] Allergy Swelling Verified 07/22/22 20:14 clavulanic acid Allergy Itching Verified 07/22/22 20:14 [From Augmentin] doxycycline calcium Allergy Unknown Verified 07/22/22 20:14 [From Vibramycin] doxycycline hyclate Allergy Unknown Verified 07/22/22 20:14 [From Vibramycin] doxycycline monohydrate Allergy Unknown Verified 07/22/22 20:14 [From Vibramycin] fluticasone Allergy Unknown Verified 07/22/22 20:14 influenza virus vaccine, Allergy Swelling Verified 07/22/22 20:14 specific [Influenza Virus Vacc,Specific] losartan Allergy Angioedema Verified 07/22/22 20:14 pneumococcal vaccine Allergy Rash Verified 07/22/22 20:14 [Pneumococcal Vaccine] promethazine HCl Allergy Unknown Verified 07/22/22 20:14 [From Phenergan] tetracycline [Tetracycline] Allergy Unknown Verified 07/22/22 20:14 cephalexin [From Keflex] AdvReac Rash Verified 07/22/22 20:14 metronidazole [From Flagyl] AdvReac Unknown Verified 07/22/22 20:14 sulfamethoxazole AdvReac Rash Verified 07/22/22 20:14 [From Bactrim] trimethoprim [From Bactrim] AdvReac Rash Verified 07/22/22 20:14 Surgical History History of cataract surgery History of exploratory laparotomy History of hysterectomy Hx of tonsillectomy Status post small bowel resection Social History household members: none Smoking Status: Never smoker alcohol intake: current alcohol intake frequency: holidays/special occasions only substance use type: does not use ROS <ADRIÁN Thompson - Last Filed: 07/22/22 21:35> ROS ED ROS Narrative Constitutional: Negative for fever, chills, weight loss. Positive for increased weakness that has been intermittent over the last several days. Eyes: Negative for vision loss, vision change, double vision ENT: Negative for any sore throat, ear pain, congestion Cardiovascular: Negative for any chest pain, tightness, palpitations Respiratory: Negative for any cough, sputum production, hemoptysis, dyspnea, dyspnea on exertion, orthopnea Gastrointestinal: Negative for any abdominal pain, nausea, vomiting, diarrhea, constipation, blood in stool, blood in vomit : Negative for any urinary frequency, dysuria, retention, blood in urine Muscle skeletal: Negative for any muscle joint pain, stiffness, myalgias, arthralgias, neck pain, back pain Neurological: Negative for any headache, syncope, numbness or tingling, dizziness Skin: Negative for any rashes, lumps, itching, abrasions, lacerations Psychiatric: Negative for any depression, anxiety, stress, suicidal ideation, homicidal ideation Hematologic: Negative for any easy bruising, excessive bruising, easy bleeding Allergies: Negative for any eczema, hives, rash EXAM <ADRIÁN Thompson - Last Filed: 07/22/22 21:35> Physical Exam Narrative Exam Narrative: Vital signs reviewed. Patient alert orient x4. Patient is acting appropriate. HEET: Head normocephalic atraumatic, TMs clear bilaterally. Posterior pharynx is clear, moist mucous membranes. Nares clear bilaterally. Neck: Supple with no lymphadenopathy or tenderness. No signs of meningismus, negative jolt sign. Cardiac: Regular rate and rhythm no murmurs gallops or rubs, equal peripheral pulses bilaterally. Respiratory: Lungs clear to auscultation bilaterally. No chest tenderness. Abdomen: Soft, nontender, nondistended. No abdominal bruit or pulsatile masses. No hepatosplenomegaly Extremities: No peripheral edema, no signs of gross trauma or deformity. Active full range of motion of all extremities. Neuro: Cranial nerves II through XII intact, no focal neurological deficits. Skin: Clean dry and intact with no rash, purpura, petechiae, vesicles or pustules. Backs/flank: No CVA tenderness, no midline spinal tenderness, no deformity. Psych: Normal mood and affect. No SI, HI or acute psychosis. Const Vital Signs: 07/22/22 20:14 Temperature 97.9 F Temperature Source Temporal Pulse Rate 62 Respiratory Rate 18 Blood Pressure 134/76 H Blood Pressure Mean 95 Pulse Ox 98 Oxygen Delivery Method Room Air <Dr. Lg Roy MD - Last Filed: 07/23/22 00:10> Physical Exam Const Vital Signs: 07/22/22 20:14 Temperature 97.9 F Temperature Source Temporal Pulse Rate 62 Respiratory Rate 18 Blood Pressure 134/76 H Blood Pressure Mean 95 Pulse Ox 98 Oxygen Delivery Method Room Air MDM <ADRIÁN Thompson - Last Filed: 07/22/22 21:35> [facility] Lab Data Labs: Laboratory Results - last 24 hr 07/22/22 20:41 Urine Color Yellow Urine Clarity Clear Urine pH 6.0 Ur Specific [place] 1.015 Urine Protein Negative Urine Glucose (UA) Normal Urine Ketones 15 H Urine Occult Blood 10 H Urine Nitrite Negative Urine Bilirubin Negative Urine Urobilinogen Normal Ur Leukocyte Esterase Negative Urine RBC 0-5 SEEN Urine WBC 0 SEEN Ur Squamous Epith Cells 0-5 SEEN Urine Bacteria 0 SEEN Urine Mucus 0 SEEN Treatment and Re-Evaluation :: Patient appears generally well, patient appears nontoxic, vital signs are stable. Patient presents the emergency department for concern that her antibiotic was not working for her urinary tract infection that grew E. coli. I did look at the patient's culture did show I which was intermediate. Patient did receive a straight cath urine, this was a success, patient had a clean urine sample. I do believe that the Macrobid was successful. Patient vital signs are stable. At this time, there is no evidence of suspect any other infection. Patient was ambulated with nursing staff with a walker. At this time, I do believe the patient safe for discharge. She will follow-up with the primary care doctor tomorrow at 1:15pm. She is instructed return for any worsening symptoms. Patient is happy the plan of care, she will maintain hydration. She instructed return for any worsening symptoms, all questions answered. <Dr. Lg Roy MD - Last Filed: 07/23/22 00:10> [facility] Lab Data Labs: Laboratory Results - last 24 hr 07/22/22 20:41 Urine Color Yellow Urine Clarity Clear Urine pH 6.0 Ur Specific [place] 1.015 Urine Protein Negative Urine Glucose (UA) Normal Urine Ketones 15 H Urine Occult Blood 10 H Urine Nitrite Negative Urine Bilirubin Negative Urine Urobilinogen Normal Ur Leukocyte Esterase Negative Urine RBC 0-5 SEEN Urine WBC 0 SEEN Ur Squamous Epith Cells 0-5 SEEN Urine Bacteria 0 SEEN Urine Mucus 0 SEEN Treatment and Re-Evaluation Comments:: Seen and evaluated independently and in conjunction with nurse practitioner. Agree with notes above unless documented otherwise. Patient denies any symptoms right now. She is well-appearing and has a benign exam. We did repeat her urinalysis and it is benign, we reviewed the outside labs/culture, agree that the antibiotic she was placed on was appropriate for the culture results, and now her urinalysis shows definitive improvement. Staff got her out of bed and she was able to stand and walk without difficulty. Will discharge home close a patient follow-up, she has an appointment with her PCP tomorrow. Discharge Plan Triage Chief Complaint: Complaint Other Complaint: Weakness ED Midlevel Provider: Adi Geronimo ED Provider: Lg Roy Dx/Rx/DC Orders Clinical Impression: Weakness, History of UTI Instructions: ED Weakness (Uncertain Cause) Prescriptions: No Action metformin 500 MG tablet 500 mg PO TIDCM Label Comments: DIABETES PreserVision AREDS-2 1 EACH capsule 1,000 mg PO DAILY venlafaxine 75 MG tablet 75 mg PO BID diphenhydramine HCl 25 MG capsule 12.5 mg PO QHS PRN (Reason: Insomnia) ascorbic acid (vitamin C) 1,000 mg Capsule, Extended Release 1,000 cap PO DAILY levothyroxine 88 mcg tablet 88 mcg PO DAILY methenamine mandelate 1 gram tablet 1 g PO BID hydrochlorothiazide 25 mg tablet 25 mg PO 1XD Label Comments: TAKE 1 TABLET BY MOUTH ONCE DAILY menthol-zinc oxide [Calmoseptine] 0.44-20.6 % ointment 1 applic topical BID Protocol: *Topical Application Instructions APPLICATION INSTRUCTIONS: coccyx potassium chloride 20 mEq tablet extended release 40 meq PO DAILY cefpodoxime 100 mg tablet 100 mg PO BID Qty: 10 0RF Rx Instructions: must administer with a meal/food nitrofurantoin monohyd/m-cryst [Macrobid] 100 mg capsule 100 mg PO Q12H 5 Days Qty: 10 0RF Rx Instructions: must administer with a meal/food Primary Care Provider: Da Ocampo Referrals: Da Ocampo MD [Primary Care Provider] - Activity Restrictions/Additional Instructions: Continue to maintain hydration. Follow-up with your PCP as scheduled tomorrow Disposition Disposition: Home, Self Care Discharge Date/Time: 07/22/22 22:01
[2022-07-22 20:45] LABS: Bacteria 0 SEEN /hpf (None Seen); Mucous, Urine 0 SEEN /hpf (<or=2+); White Blood Cells 0 SEEN /hpf (0-5)
[2022-07-22 20:49] LABS: Color, Urine Yellow (Yellow); Glucose, Dipstick Normal (Normal); Ketone-Dipstick 15 mg/dl (Negative); Leukocyte Esterase-Dipstick Negative /ul (Negative); Nitrite-Dipstick Negative (Negative); Occult Blood-Urine 10 /ul (Negative); Protein-Dipstick Negative (Negative); Specific Gravity, Urine 1.015 (1.002-1.030); Urine Bilirubin Dipstick Negative (Negative); Urine Clarity Clear (Clear); Urine Urobilinogen Normal (Normal)
[2022-07-22 20:58] LABS: Red Blood Cells-Urine 0-5 SEEN /hpf (0-5); Squamous Epithelial Cells - UA 0-5 SEEN /hpf (5-10)
--- NOTE | 2022-07-22 21:07 | ED.RN ---
Zo, daughter called in for update. will need to be called at d/c for a ride home.
== END 2022-07-22 22:01 | disposition home or self-care (01) ==
PROVIDERS: Nurse Practitioner; Emergency Provider Emergency Medicine; PCP Family Medicine; Referring Provider Emergency Medicine; Visit Provider Emergency Medicine
DX: R53.1 Weakness (principal)
CPT/HCPCS: 81001; 99285; P9612

== ENCOUNTER 2022-10-11 14:53 | Emergency (ER) | payer MEDICARE, OTHER, SELFPAY ==
[2022-10-11 14:54] VITALS: BP 114/60; PULSE 69; RESP 14; TEMP 37.2; O2SAT 92; BMI 26.6
[2022-10-11 15:05] VITALS: BP 114/60; PULSE 69; RESP 14; TEMP 37.2
--- NOTE | 2022-10-11 15:13 | EDS_ITS ---
HPI History of Present Illness Chief Complaint: Complaint Detail of Chief Complaint: Change in mental status, which is common with urinary tract infection per d Informant: patient and family Onset/Context/Timing Onset: Yesterday Context: Sudden Onset Timing: Continuous Quality: Sleepier than normal and not as active. Patient does endorse increased uri Location: Generalized and Current Severity: Mild Maximum Severity: Mild Worsened by: Nothing Relieved by: Nothing Associated Symptoms Associated Symptoms: No fever or chills. Narrative Narrative: Patient is an 87-year-old woman with history of Charan tract infections. She does have history of hypertension, hyperlipidemia, type 2 diabetes, hypothyroidism who was brought to the emergency department because of change in her activity and frequency. Patient denies hematuria or dysuria. Patient denies headache. Patient denies visual, ocular auditory symptoms. Patient denies rhinorrhea, congestion postnasal drainage. Patient denies sore throat. Patient denies cough or shortness of breath. Patient denies chest pain. Patient denies nausea, vomiting or diarrhea. Patient has not noted a rash. Prior similar symptoms: Yes Recent Illness/Hospitalization: No PFSH PFSH Medical History Anxiety Cancer Diabetes Heart murmur Hypertension Hypothyroidism Partial obstruction of small intestine Home Medications metformin 500 mg tablet 500 mg PO TIDCM blood sugar 12/10/13 [History Last Taken 03/23/22] vit C 250 mg-vit E 90 mg-zinc 40 mg-copper 1 [id number] capsule (PreserVision AREDS-2) 1,000 mg PO DAILY multivitamin 04/22/14 [History Last Taken 03/23/22] venlafaxine 75 mg tablet 75 mg PO BID depression 08/20/18 [History Last Taken 03/23/22] diphenhydramine HCl 25 mg capsule 12.5 mg PO QHS PRN Insomnia 11/09/18 [History Last Taken Unknown] ascorbic acid (vitamin C) 1,000 mg capsule,extended release 1,000 cap PO DAILY SUPPLEMENT 09/19/20 [History Last Taken 03/23/22] levothyroxine 88 mcg tablet 88 mcg PO DAILY THYROID 03/03/21 [History Last Taken 03/23/22] methenamine mandelate 1 gram tablet 1 g PO BID URINATION 12/10/21 [History Last Taken 03/23/22] hydrochlorothiazide 25 mg tablet 25 mg PO 1XD bp 03/24/22 [History Last Taken Unknown] menthol 0.44 %-zinc oxide 20.6 % topical ointment (Calmoseptine) 1 applic topical BID Check with primary doctor 03/24/22 [History Last Taken Unknown] potassium chloride 20 mEq tablet,extended release 40 meq PO DAILY Check with primary doctor 03/24/22 [History Last Taken 03/23/22] cefpodoxime 100 mg tablet 100 mg PO BID #10 tabs 03/25/22 [Rx Last Taken Unknown] nitrofurantoin monohydrate/macrocrystals 100 mg capsule (Macrobid) 100 mg PO Q12H 5 days #10 caps 07/18/22 [Rx Last Taken Unknown] Allergy/AdvReac Type Severity Reaction Status Date / Time amoxicillin [From Augmentin] Allergy Itching Verified 10/11/22 14:54 cefdinir Allergy Rash Verified 10/11/22 14:54 ciprofloxacin [From Cipro] Allergy Swelling Verified 10/11/22 14:54 clavulanic acid Allergy Itching Verified 10/11/22 14:54 [From Augmentin] doxycycline calcium Allergy Unknown Verified 10/11/22 14:54 [From Vibramycin] doxycycline hyclate Allergy Unknown Verified 10/11/22 14:54 [From Vibramycin] doxycycline monohydrate Allergy Unknown Verified 10/11/22 14:54 [From Vibramycin] fluticasone Allergy Unknown Verified 10/11/22 14:54 influenza virus vaccine, Allergy Swelling Verified 10/11/22 14:54 specific [Influenza Virus Vacc,Specific] losartan Allergy Angioedema Verified 10/11/22 14:54 pneumococcal vaccine Allergy Rash Verified 10/11/22 14:54 [Pneumococcal Vaccine] promethazine HCl Allergy Unknown Verified 10/11/22 14:54 [From Phenergan] tetracycline [Tetracycline] Allergy Unknown Verified 10/11/22 14:54 cephalexin [From Keflex] AdvReac Rash Verified 10/11/22 14:54 metronidazole [From Flagyl] AdvReac Unknown Verified 10/11/22 14:54 sulfamethoxazole AdvReac Rash Verified 10/11/22 14:54 [From Bactrim] trimethoprim [From Bactrim] AdvReac Rash Verified 10/11/22 14:54 Surgical History History of cataract surgery History of exploratory laparotomy History of hysterectomy Hx of tonsillectomy Status post small bowel resection Social History household members: none Smoking Status: Never smoker alcohol intake: current alcohol intake frequency: holidays/special occasions only substance use type: does not use ROS ROS ED Constitutional Constitutional ED: Denies chills, fever(s), subjective, sweats or weight loss Eyes Eyes: Denies blurry vision, change in vision or diplopia ENT ENT ED: Denies ear pain, rhinorrhea or sore throat Cardiovascular Cardiovascular: Denies chest pain, palpitations or racing heartbeat Respiratory/Chest Respiratory/Chest: Denies cough or dyspnea on exertion Gastrointestinal Gastrointestinal: Denies abdominal pain, diarrhea, nausea or vomiting Genitourinary Genitourinary ED: Reports urinary frequency; Denies dysuria or hematuria Musculoskeletal Musculoskeletal: Denies arthralgias, back pain or myalgias Integumentary Denies rash Neurologic Neurologic: Reports weakness; Denies headache(s) or paresthesias Endocrine Endocrinology: Denies cold intolerance or heat intolerance EXAM Physical Exam Const Vital Signs: 10/11/22 14:54 10/11/22 15:05 Temperature 98.9 F 98.9 F Temperature Source Temporal Oral Pulse Rate 69 69 Respiratory Rate 14 14 Blood Pressure 114/60 114/60 Blood Pressure Mean 78 78 Pulse Ox 92 Oxygen Delivery Method Room Air Room Air Positive well nourished and well developed Constitutional Narrative: Patient eyes are closed. She does respond to verbal stimuli. She is not awake but is alert. General Appearance ED: well developed and NAD; Negative for pallor HEENT Reports dry mucous membranes HEENT Narrative: Head is atraumatic normocephalic. Ears normal. Nares patent. Posterior pharynx is normal. Mouth ED: Yes dry mucous membranes Mouth: dry mucous membranes Eyes PERRL and EOMs intact bilaterally General Eye ED: Negative for pale conjunctiva or scleral icterus Neck no lymphadenopathy, supple and no JVD Chest Wall inspection of chest normal and palpation of chest normal Resp normal respiratory effort and clear to auscultation bilaterally Cardio regular rate, regular rhythm, S1 normal heart sound, S2 normal heart sound and no murmurs GI normal to inspection, nondistended, normoactive bowel sounds, non-tender, non- distended and no masses; Negative for hepatosplenomegaly Auscultation: normoactive bowel sounds Back/Spine no CVA tenderness Extremity normal to inspection General Extremety ED: Negative for edema or tenderness General Extremity: Negative for edema Neuro oriented x3, CN's II-XII intact bilaterally and no sensory deficits noted Motor Exam: strength 5/5 throughout Psych mental status grossly normal Skin no rashes or lesions noted, no wounds and skin turgor normal General Skin Exam: Negative for jaundice or pallor MDM MDM MDM Narrative Medical decision making narrative: Since patient had similar presentation with prior urinary tract infections will obtain UA CBC and BMP. Will review old records. History & Record Review Additional record(s) reviewed:: Prior inpatient record (Admitted March 2022 for some partial small bowel obstruction), Prior outpatient record (Has had several visits for urinary tract infection in the past 12 months.) and Prior labs Discharge Plan Triage Chief Complaint: Complaint ED Provider: Des Portillo Dx/Rx/DC Orders Prescriptions: No Action metformin 500 MG tablet 500 mg PO TIDCM Patient Comments: DIABETES PreserVision AREDS-2 1 EACH capsule 1,000 mg PO DAILY venlafaxine 75 MG tablet 75 mg PO BID diphenhydramine HCl 25 MG capsule 12.5 mg PO QHS PRN (Reason: Insomnia) ascorbic acid (vitamin C) 1,000 mg Capsule, Extended Release 1,000 cap PO DAILY levothyroxine 88 mcg tablet 88 mcg PO DAILY methenamine mandelate 1 gram tablet 1 g PO BID hydrochlorothiazide 25 mg tablet 25 mg PO 1XD Patient Comments: TAKE 1 TABLET BY MOUTH ONCE DAILY menthol-zinc oxide [Calmoseptine] 0.44-20.6 % ointment 1 applic topical BID Protocol: *Topical Application Instructions APPLICATION INSTRUCTIONS: coccyx potassium chloride 20 mEq tablet extended release 40 meq PO DAILY cefpodoxime 100 mg tablet 100 mg PO BID Qty: 10 0RF Rx Instructions: must administer with a meal/food nitrofurantoin monohyd/m-cryst [Macrobid] 100 mg capsule 100 mg PO Q12H 5 Days Qty: 10 0RF Rx Instructions: must administer with a meal/food Primary Care Provider: Da Ocampo Referrals: Da Ocampo MD [Primary Care Provider] -
[2022-10-11 16:01] LABS: Absolute Lymphocyte Count 1.84 X10^3/uL (0.83-4.51); Absolute Neutrophil Count 2.7 X10^3/uL (2.0-7.7); Basophil# 0.02 X10^3/uL; Basophil% 0.4 % (0-1); Eosinophil# 0.11 X10^3/uL; Eosinophils% 2.1 % (0-5); Hematocrit 39.2 % (37-47); Hemoglobin 12.6 g/dL (12.0-15.0); Lymphocyte # 1.84 X10^3/ul (0.83-4.51); Lymphocyte % 35.8 % (19-41); Mean Corp Hgb Conc 32.1 g/dL (32-36); Mean Corpuscular Hgb 28.3 pg (27.0-32.0); Mean Corpuscular Volume 88.1 fL (81-99); Mean Platelet Vol. 9.4 fl (6.2-12.0); Monocyte# 0.42 X10^3/uL; Monocyte% 8.2 % (0-10); NRBC Flagged by Analyzer 0 % (0-5); Neutrophil # 2.74 X10^3/uL (2.7-7.7); Neutrophil % 53.3 % (47-70); Platelet Count 240 K/mm3 (150-450); RBC Distribution Width CV 12.4 % (11.6-14.6); RBC Distribution Width SD 40.5 fl (35.1-43.9); Red Blood Count 4.45 M/mm3 (4.2-5.4); White Blood Count 5.1 K/mm3 (4.4-11.0)
[2022-10-11 16:04] LABS: Mucous, Urine 0 SEEN /hpf (<or=2+); Red Blood Cells-Urine 0 SEEN /hpf (0-5)
[2022-10-11 16:06] LABS: Anion Gap 8 (5-15); BUN 23 mg/dL (7-18); BUN/Creat Ratio 27.5 RATIO (10-20); Calcium,Total 9.1 mg/dL (8.5-10.1); Chloride 102 mmol/L (98-107); Creatinine, Serum 0.84 mg/dL (0.55-1.02); EST Glomerular Filtration Rate 69 mL/min (>60); Est Glom Filt Rate - Afr Amer 83 mL/min (>60); Glucose 171 mg/dL (74-106); Potassium 3.4 mmol/L (3.5-5.1); Sodium Level 141 mmol/L (136-145)
[2022-10-11 16:11] LABS: Color, Urine Yellow (Yellow); Glucose, Dipstick Normal (Normal); Ketone-Dipstick Negative (Negative); Leukocyte Esterase-Dipstick 500 /ul (Negative); Nitrite-Dipstick Negative (Negative); Occult Blood-Urine 10 /ul (Negative); Protein-Dipstick Negative (Negative); Specific Gravity, Urine 1.015 (1.002-1.030); Urine Bilirubin Dipstick Negative (Negative); Urine Clarity Clear (Clear); Urine Urobilinogen Normal (Normal)
[2022-10-11] MEDS: Potassium Chloride Oral Soln 20 MEQ/15 ML UDC 40 MEQ PO (16:39)
[2022-10-11 16:47] LABS: Bacteria 3+ /hpf (None Seen); Squamous Epithelial Cells - UA 0-5 SEEN /hpf (5-10); White Blood Cells 10-25 SEEN /hpf (0-5)
[2022-10-11 17:19] VITALS: BP 173/111; PULSE 64; O2SAT 100
--- NOTE | 2022-10-11 17:20 | ED.RN ---
PT REQUESTS THIS RN CALL DAUGHTER, RAJINDER BURKS. THIS RN ATTEMPTED TO CALL PT DAUGHTER AT [phone]. CALL WENT STRAIGHT TO [employer].
[2022-10-11 18:17] VITALS: BP 172/59; PULSE 61; RESP 14; O2SAT 100
== END 2022-10-11 18:35 | disposition home or self-care (01) ==
PROVIDERS: Emergency Provider Emergency Medicine; PCP Family Medicine; Visit Provider Emergency Medicine
DX: N39.0 Urinary tract infection, site not specified (principal); E87.6 Hypokalemia
CPT/HCPCS: 80048; 81001; 85025; 87077; 87086; 87088; 87186; 96365; 99284; J7050; P9612; A4216

== ENCOUNTER 2023-04-18 00:39 | Emergency (ER) | payer MEDICARE, OTHER, SELFPAY ==
[2023-04-18 00:40] VITALS: BP 141/65; PULSE 77; RESP 16; TEMP 36.4; O2SAT 98; BMI 30.1
--- NOTE | 2023-04-18 00:50 | EDS_ITS ---
HPI History of Present Illness Chief Complaint: Fall Informant: patient Narrative Narrative: Patient presents just after midnight for generalized weakness that has been present all day today, since she woke up this morning. She states prior to arrival tonight, she was walking to her kitchen for a glass of water using her walker, and was so weak that she was going to fall so she used the countertop to help guide herself down to her buttocks onto the floor without an actual fall or injury to anything. She called EMS because she was unable to get up on her own and they brought her here. She states she got around okay yesterday. She denies any other new symptoms today. She states her last fall was several days ago, EMS was called to help her up and she did not feel like she needed to come to the hospital. She cannot tell me about that fall at all but denies injury, and she is a very poor historian answering most questions with yes no answers. She does state that she lives at home alone, her daughter is local and comes by to help her often, but she just left to visit another family member in [place] where she will be for at least a few days. [facility] Medical History (Updated 04/18/23 @ 03:[address] Lg Roy MD) Anxiety and depression Cognitive impairment DM (diabetes mellitus), type 2 Heart murmur History of ovarian cancer Hypertension Hypothyroidism Partial obstruction of small intestine Home Medications metformin 500 mg tablet 500 mg PO TIDCM blood sugar 12/10/13 [History Last Taken 03/23/22] vit C 250 mg-vit E 90 mg-zinc 40 mg-copper 1 [id number] capsule (PreserVision AREDS-2) 1,000 mg PO DAILY multivitamin 04/22/14 [History Last Taken 03/23/22] venlafaxine 75 mg tablet 75 mg PO BID depression 08/20/18 [History Last Taken 03/23/22] diphenhydramine HCl 25 mg capsule 12.5 mg PO QHS PRN Insomnia 11/09/18 [History Last Taken Unknown] ascorbic acid (vitamin C) 1,000 mg capsule,extended release 1,000 cap PO DAILY SUPPLEMENT 09/19/20 [History Last Taken 03/23/22] levothyroxine 88 mcg tablet 88 mcg PO DAILY THYROID 03/03/21 [History Last Taken 03/23/22] methenamine mandelate 1 gram tablet 1 g PO BID URINATION 03/03/21 [History Last Taken 03/23/22] hydrochlorothiazide 25 mg tablet 25 mg PO 1XD bp 03/24/22 [History Last Taken Unknown] menthol 0.44 %-zinc oxide 20.6 % topical ointment (Calmoseptine) 1 applic topical BID Check with primary doctor 03/24/22 [History Last Taken Unknown] potassium chloride 20 mEq tablet,extended release 40 meq PO DAILY Check with primary doctor 03/24/22 [History Last Taken 03/23/22] cefpodoxime 100 mg tablet 100 mg PO BID #10 tabs 03/25/22 [Rx Last Taken Unknown] nitrofurantoin monohydrate/macrocrystals 100 mg capsule (Macrobid) 100 mg PO Q12H 5 days #10 caps 07/18/22 [Rx Last Taken Unknown] nitrofurantoin monohydrate/macrocrystals 100 mg capsule 100 mg PO Q12 #14 CAPSULES 10/11/22 [Rx Last Taken Unknown] potassium chloride 20 mEq/15 mL oral liquid 20 meq (15 mL) PO DAILY #450 mL 10/11/22 [Rx Last Taken Unknown] Allergy/AdvReac Type Severity Reaction Status Date / Time amoxicillin [From Augmentin] Allergy Itching Verified 04/18/23 00:49 cefdinir Allergy Rash Verified 04/18/23 00:49 ciprofloxacin [From Cipro] Allergy Swelling Verified 04/18/23 00:49 clavulanic acid Allergy Itching Verified 04/18/23 00:49 [From Augmentin] doxycycline calcium Allergy Unknown Verified 04/18/23 00:49 [From Vibramycin] doxycycline hyclate Allergy Unknown Verified 04/18/23 00:49 [From Vibramycin] doxycycline monohydrate Allergy Unknown Verified 04/18/23 00:49 [From Vibramycin] fluticasone Allergy Unknown Verified 04/18/23 00:49 influenza virus vaccine, Allergy Swelling Verified 04/18/23 00:49 specific [Influenza Virus Vacc,Specific] losartan Allergy Angioedema Verified 04/18/23 00:49 pneumococcal vaccine Allergy Rash Verified 04/18/23 00:49 [Pneumococcal Vaccine] promethazine HCl Allergy Unknown Verified 04/18/23 00:49 [From Phenergan] tetracycline [Tetracycline] Allergy Unknown Verified 04/18/23 00:49 cephalexin [From Keflex] AdvReac Rash Verified 04/18/23 00:49 metronidazole [From Flagyl] AdvReac Unknown Verified 04/18/23 00:49 sulfamethoxazole AdvReac Rash Verified 04/18/23 00:49 [From Bactrim] trimethoprim [From Bactrim] AdvReac Rash Verified 04/18/23 00:49 Family History (Updated 04/18/23 @ 01:[address] Tessa Nascimento MD) Mother Liver cancer Father Heart disease Surgical History (Updated 04/18/23 @ 01:[address] Tessa Nascimento MD) History of cataract surgery History of exploratory laparotomy Hx of tonsillectomy Status post small bowel resection Status post total abdominal hysterectomy Social History household members: none Smoking Status: Never smoker alcohol intake: current alcohol intake frequency: holidays/special occasions only substance use type: does not use ROS ROS ED Constitutional Constitutional ED: Reports malaise and weakness; Denies chills or fever(s) Eyes Eyes: Denies change in vision or diplopia ENT ENT ED: Denies rhinorrhea or sore throat Cardiovascular Cardiovascular: Denies chest pain or palpitations Respiratory/Chest Respiratory/Chest: Reports other Details: rare [employer] cough ; Denies dyspnea Gastrointestinal Gastrointestinal: Denies abdominal pain, diarrhea, nausea or vomiting Genitourinary Genitourinary ED: Denies dysuria or hematuria Musculoskeletal Musculoskeletal: Denies back pain or neck pain Integumentary Denies abscess or rash Neurologic Neurologic: Denies headache(s), paresthesias or weakness Psychiatric Psychiatric: Denies anxiety or suicidal thoughts EXAM Physical Exam Const Vital Signs: 04/18/23 00:40 04/18/23 01:28 04/18/23 02:53 Temperature 97.5 F L Temperature Source Temporal Pulse Rate 77 91 Respiratory Rate 16 18 Respiratory Effort Normal Non-Labored Respiratory Depth Normal Respiratory Pattern Normal Blood Pressure 141/65 H 165/79 H Blood Pressure Mean 90 107 Pulse Ox 98 99 Oxygen Delivery Method Room Air Room Air Room Air Positive well nourished and well developed General Appearance ED: well developed and NAD HEENT Reports moist mucous membranes normocephalic and atraumatic Eyes PERRL and EOMs intact bilaterally Neck full ROM and supple Chest Wall inspection of chest normal and palpation of chest normal Resp normal respiratory effort and clear to auscultation bilaterally Resp Narrative: Seems to have fast shallow breathing, denies dyspnea and in no distress with equal breath sounds bilaterally and clear Cardio regular rate and regular rhythm Heart Sounds: murmur systolic GI non-tender and non-distended Auscultation: normoactive bowel sounds Palpation: soft Back/Spine no CVA tenderness General Back: other FROM Extremity normal to inspection General Extremety ED: Yes edema; Negative for pulses abnormal or tenderness General Extremity: edema bilateral lower extremity Details: trace; Negative for pulses abnormal Neuro oriented x3, CN's II-XII intact bilaterally and no sensory deficits noted Neuro Narrative: Moves all 4 extremities symmetrically Sensorium / Orientation: awake and alert Motor Exam: general weakness Psych mental status grossly normal Skin no rashes or lesions noted and no wounds MDM MDM MDM Narrative Medical decision making narrative: There is no clinical suspicion for injury here, her workup was performed to evaluate for medical reason for her weakness. Unfortunately other than prerenal azotemia was not able to discover 1. Her EKG shows no evidence of dysrhythmia or acute myocardial injury, her urine shows no suspicion or evidence for infection, glucose is only slightly elevated at 182 and her blood counts are normal. We also screened for other infections with COVID/influenza/RSV swab and all of that was negative, and a two-view chest x-ray which my troponin is unremarkable, radiology confirms is negative for pneumonia. After all of these basically unremarkable tests, I spoke with the patient. She is very anxious. She is extremely concerned about her cat who is at home alone without food and she is afraid the cat is going to although she is only been here for about 2 hours. We tried to reassure her, but she is extremely anxious about this. I had nursing assistance to get her up with a walker and she was able to stand and walk and felt stable. She wants to go home. She does not have a medical reason to be admitted right now, but I offered social admission to inpatient observation if she was too weak or wanted to stay and she declines that. Her daughters are out of town, I had nurses call them. They did get in touch, and are okay with the patient going home, we will try to get an ambulance to take her home since she uses a walker and does not have it with her. Lab Data Attestation: I reviewed the patient's lab results. Labs: Laboratory Results - last 24 hr 04/18/23 04/18/23 01:03 01:21 WBC 5.7 RBC 4.37 Hgb 12.2 Hct 38.4 MCV 87.9 MCH 27.9 MCHC 31.8 L RDW Std Deviation 40.6 RDW Coeff of Marleni 12.5 Plt Count 248 MPV 9.5 Immature Gran % (Auto) 0.200 Neut % (Auto) 57.6 Lymph % (Auto) 32.6 Traverse % (Auto) 7.0 Eos % (Auto) 1.9 Baso % (Auto) 0.7 Absolute Neuts (auto) 3.3 Absolute Lymphs (auto) 1.87 Nucleated RBC % 0 Sodium 138 Potassium 3.5 Chloride 106 Carbon Dioxide 30.0 Anion Gap 2 L BUN 32 H Creatinine 0.94 Estim Creat Clear Calc 44.62 Est GFR (MDRD) Af Amer 72 Est GFR (MDRD) Non-Af 60 BUN/Creatinine Ratio 34.0 H Glucose 182 H Calcium 9.7 Total Bilirubin 0.40 AST 9 L ALT 19 Alkaline Phosphatase 104 Troponin I High Sens 14 Total Protein 7.2 Albumin 3.4 Globulin 3.8 Albumin/Globulin Ratio 0.9 Urine Color Yellow Urine Clarity Clear Urine pH 5.0 Ur Specific [place] 1.020 Urine Protein Negative Urine Glucose (UA) Normal Urine Ketones Negative Urine Occult Blood Negative Urine Nitrite Negative Urine Bilirubin Negative Urine Urobilinogen Normal Ur Leukocyte Esterase 25 H Urine RBC 0 SEEN Urine WBC 0-5 SEEN Ur Squamous Epith Cells 0 SEEN Urine Bacteria 1+ Urine Mucus 0 SEEN Radiography Diagnostic Testing: Clinical Impression(s) from Imaging Studies Chest X-Ray 04/18/23 01:07 IMPRESSION: No evidence of acute cardiopulmonary disease. Electronically Signed: Kota Perry DO at 1:22 EST , Rhythm Strip Rhythm Strip: Sinus Rhythm Rate: 75 Ectopy: None EKG Initial EKG: Attestation: I personally reviewed and interpreted this EKG as follows: Interpretation: Sinus Rhythm, LBBB and AV Block (1st deg) Prior EKG tracings: available for review Prior: Unchanged Management Discussion w/another healthcare provider: Hospitalist Discharge Plan Triage Chief Complaint: Fall ED Provider: Lg Roy Dx/Rx/DC Orders Clinical Impression: Generalized weakness, Debility, Anxiety Instructions: ED Weakness (Uncertain Cause) Prescriptions: No Action metformin 500 MG tablet 500 mg PO TIDCM Patient Comments: DIABETES PreserVision AREDS-2 1 EACH capsule 1,000 mg PO DAILY venlafaxine 75 MG tablet 75 mg PO BID diphenhydramine HCl 25 MG capsule 12.5 mg PO QHS PRN (Reason: Insomnia) ascorbic acid (vitamin C) 1,000 mg Capsule, Extended Release 1,000 cap PO DAILY levothyroxine 88 mcg tablet 88 mcg PO DAILY methenamine mandelate 1 gram tablet 1 g PO BID hydrochlorothiazide 25 mg tablet 25 mg PO 1XD Patient Comments: TAKE 1 TABLET BY MOUTH ONCE DAILY menthol-zinc oxide [Calmoseptine] 0.44-20.6 % ointment 1 applic topical BID Protocol: *Topical Application Instructions APPLICATION INSTRUCTIONS: coccyx potassium chloride 20 mEq tablet extended release 40 meq PO DAILY cefpodoxime 100 mg tablet 100 mg PO BID Qty: 10 0RF Rx Instructions: must administer with a meal/food nitrofurantoin monohyd/m-cryst [Macrobid] 100 mg capsule 100 mg PO Q12H 5 Days Qty: 10 0RF Rx Instructions: must administer with a meal/food nitrofurantoin monohyd/m-cryst [nitrofurantoin monohyd/m-cryst] 100 mg capsule 100 mg PO Q12 Qty: 14 0RF potassium chloride 20 mEq/15 mL liquid 20 meq PO DAILY Qty: 450 0RF Primary Care Provider: Da Ocampo Referrals: Da Ocampo MD [Primary Care Provider] - 3-5 Days
[2023-04-18] MEDS: 0.9% Normal Saline (1000mL) 1,000 ML 150 ML IV (01:03)
--- NOTE | 2023-04-18 01:07 | RAD_ITS ---
INDICATION: weakness, cough EXAMINATION/TECHNIQUE: X-RAY - XR Chest 2 Views COMPARISON: 07/18/2022. FINDINGS: LINES/DEVICES: None. LUNGS: No consolidation or evidence of an effusion. No evidence of edema or a pneumothorax. MEDIASTINUM AND CARDIOVASCULAR STRUCTURES: Cardiac silhouette is normal in size and contour. Mediastinum is unremarkable. BONES AND SOFT TISSUES: No acute abnormality. RAD/Chest PA and Lateral IMPRESSION: No evidence of acute cardiopulmonary disease. Electronically Signed: Kota Perry DO at 1:22 EST ,
[2023-04-18 01:09] LABS: Absolute Lymphocyte Count 1.87 X10^3/uL (0.83-4.51); Absolute Neutrophil Count 3.3 X10^3/uL (2.0-7.7); Basophil# 0.04 X10^3/uL; Basophil% 0.7 % (0-1); Eosinophil# 0.11 X10^3/uL; Eosinophils% 1.9 % (0-5); Hematocrit 38.4 % (37-47); Hemoglobin 12.2 g/dL (12.0-15.0); Lymphocyte # 1.87 X10^3/ul (0.83-4.51); Lymphocyte % 32.6 % (19-41); Mean Corp Hgb Conc 31.8 g/dL (32-36); Mean Corpuscular Hgb 27.9 pg (27.0-32.0); Mean Corpuscular Volume 87.9 fL (81-99); Mean Platelet Vol. 9.5 fl (6.2-12.0); NRBC Flagged by Analyzer 0 % (0-5); Neutrophil # 3.31 X10^3/uL (2.7-7.7); Neutrophil % 57.6 % (47-70); Platelet Count 248 K/mm3 (150-450); RBC Distribution Width CV 12.5 % (11.6-14.6); RBC Distribution Width SD 40.6 fl (35.1-43.9); Red Blood Count 4.37 M/mm3 (4.2-5.4); White Blood Count 5.7 K/mm3 (4.4-11.0)
[2023-04-18 01:25] LABS: Mucous, Urine 0 SEEN /hpf (<or=2+); Red Blood Cells-Urine 0 SEEN /hpf (0-5); Squamous Epithelial Cells - UA 0 SEEN /hpf (5-10)
[2023-04-18 01:26] LABS: Color, Urine Yellow (Yellow); Glucose, Dipstick Normal (Normal); Ketone-Dipstick Negative (Negative); Leukocyte Esterase-Dipstick 25 /ul (Negative); Nitrite-Dipstick Negative (Negative); Occult Blood-Urine Negative /ul (Negative); Protein-Dipstick Negative (Negative); Urine Bilirubin Dipstick Negative (Negative); Urine Clarity Clear (Clear); Urine Urobilinogen Normal (Normal)
[2023-04-18 01:28] LABS: ALB/GLOB Ratio 0.9 RATIO (0.9-2.4); AST(SGOT) 9 U/L (15-37); Alanine Aminotransfer ALT/SGPT 19 U/L (13-56); Albumin, Serum 3.4 g/dL (3.2-5.0); Alkaline Phosphatase 104 U/L (45-117); Anion Gap 2 (5-15); BUN 32 mg/dL (7-18); Calcium,Total 9.7 mg/dL (8.5-10.1); Chloride 106 mmol/L (98-107); Creatinine, Serum 0.94 mg/dL (0.55-1.02); EST Glomerular Filtration Rate 60 mL/min (>60); Est Glom Filt Rate - Afr Amer 72 mL/min (>60); Estimated Creatinine Clearance 44.62 ml/min; Globulin 3.8 g/dL (2.2-4.2); Glucose 182 mg/dL (74-106); Potassium 3.5 mmol/L (3.5-5.1); Protein, Total 7.2 g/dL (6.4-8.2); Sodium Level 138 mmol/L (136-145); Troponin-I HS 14 pg/mL (3.0-54.0)
[2023-04-18 01:34] LABS: Bacteria 1+ /hpf (None Seen); White Blood Cells 0-5 SEEN /hpf (0-5)
[2023-04-18 02:53] VITALS: BP 165/79; PULSE 91; RESP 18; O2SAT 99
--- NOTE | 2023-04-18 03:28 | NURSING ---
This RN attempted to contact the pt daughters regarding picking her up since she is able to go home. Both of the daughters did not answer and this RN left voicemails.
--- NOTE | 2023-04-18 04:46 | ED.RN ---
Daughter contacted on pt request. Daughter states pt lives alone and has no one to pick her up. Obtained physician's ambulance ride back home, daughter agreeing with plan to get pt home.
[2023-04-18 05:04] VITALS: BP 141/68; PULSE 72; RESP 22; O2SAT 97
[2023-04-18 05:06] VITALS: BP 141/68; PULSE 72; RESP 22; O2SAT 96
--- NOTE | 2023-04-18 06:56 | NURSING ---
This RN called Leelee to inform her of a pressure injury starting on her mothers bottom. This RN educated the daughter on the importance of not sitting in her urine/ feces, turning every 2 hours/ frequent position changes. The daughter was very understanding regarding the care of her mother.
== END 2023-04-18 06:41 | disposition home or self-care (01) ==
LOC: ED 01:24
PROVIDERS: Emergency Provider Emergency Medicine; PCP Family Medicine; Visit Provider Emergency Medicine
DX: R53.1 Weakness (principal); E11.9 Type 2 diabetes mellitus without complications; R53.81 Other malaise; F41.9 Anxiety disorder, unspecified
CPT/HCPCS: 71046; 80053; 81001; 84484; 85025; 87631; 93005; P9612; A4216

== ENCOUNTER 2023-04-18 21:01 | Observation (INO) | payer MEDICARE, OTHER, SELFPAY ==
[2023-04-18 21:03] VITALS: BP 145/66; PULSE 65; RESP 16; TEMP 35.9; O2SAT 97; BMI 30.7
--- NOTE | 2023-04-18 21:07 | ED.RN ---
PT STATES SHE MIGHT NEED TO GO TO THE REST HOME SINCE HER FAMILY IS OOT. STATES SHE IS LONELY BECAUSE DAUGHTER IS IN [place]
--- NOTE | 2023-04-18 21:13 | EDS_ITS ---
HPI History of Present Illness Chief Complaint: Weakness Informant: patient Narrative Narrative: Patient presents secondary to weakness. Patient was seen in the emergency room earlier this morning for similar. At that time she had gone to her kitchen to get a glass of water when she felt weak. She lowered herself to the ground because she was afraid she was going to fall. She had no injury. Workup was unremarkable. She was able to get up and ambulate with her walker here. She was offered admission and declined. EMS brings the patient in again tonight. She states that she was trying to get to the bathroom when she felt weak. She tried to get back to her chair to sit down but lowered herself to the ground. She again denies falling. She states that she cannot take care of herself and think she needs to go to rehab. Of note the patient's daughter lives locally and often checks on her, however is currently out of town visiting her sister. Patient does frequently ask to have her daughter called to see when she is coming home. [facility] Medical History Anxiety and depression Cognitive impairment DM (diabetes mellitus), type 2 Heart murmur History of ovarian cancer Hypertension Hypothyroidism Partial obstruction of small intestine Home Medications metformin 500 mg tablet 500 mg PO TIDCM blood sugar 12/10/13 [History Last Taken 03/23/22] vit C 250 mg-vit E 90 mg-zinc 40 mg-copper 1 [id number] capsule (PreserVision AREDS-2) 1,000 mg PO DAILY multivitamin 04/22/14 [History Last Taken 03/23/22] venlafaxine 75 mg tablet 75 mg PO BID depression 08/20/18 [History Last Taken 03/23/22] diphenhydramine HCl 25 mg capsule 12.5 mg PO QHS PRN Insomnia 11/09/18 [History Last Taken Unknown] ascorbic acid (vitamin C) 1,000 mg capsule,extended release 1,000 cap PO DAILY SUPPLEMENT 09/19/20 [History Last Taken 03/23/22] levothyroxine 88 mcg tablet 88 mcg PO DAILY THYROID 03/03/21 [History Last Taken 03/23/22] methenamine mandelate 1 gram tablet 1 g PO BID URINATION 03/03/21 [History Last Taken 03/23/22] hydrochlorothiazide 25 mg tablet 25 mg PO 1XD bp 03/24/22 [History Last Taken Unknown] menthol 0.44 %-zinc oxide 20.6 % topical ointment (Calmoseptine) 1 applic topical BID Check with primary doctor 03/24/22 [History Last Taken Unknown] potassium chloride 20 mEq tablet,extended release 40 meq PO DAILY Check with primary doctor 03/24/22 [History Last Taken 03/23/22] cefpodoxime 100 mg tablet 100 mg PO BID #10 tabs 03/25/22 [Rx Last Taken Unknown] nitrofurantoin monohydrate/macrocrystals 100 mg capsule (Macrobid) 100 mg PO Q12H 5 days #10 caps 07/18/22 [Rx Last Taken Unknown] nitrofurantoin monohydrate/macrocrystals 100 mg capsule 100 mg PO Q12 #14 CAPSULES 10/11/22 [Rx Last Taken Unknown] potassium chloride 20 mEq/15 mL oral liquid 20 meq (15 mL) PO DAILY #450 mL 10/11/22 [Rx Last Taken Unknown] Allergy/AdvReac Type Severity Reaction Status Date / Time amoxicillin [From Augmentin] Allergy Itching Verified 04/18/23 00:49 cefdinir Allergy Rash Verified 04/18/23 00:49 ciprofloxacin [From Cipro] Allergy Swelling Verified 04/18/23 00:49 clavulanic acid Allergy Itching Verified 04/18/23 00:49 [From Augmentin] doxycycline calcium Allergy Unknown Verified 04/18/23 00:49 [From Vibramycin] doxycycline hyclate Allergy Unknown Verified 04/18/23 00:49 [From Vibramycin] doxycycline monohydrate Allergy Unknown Verified 04/18/23 00:49 [From Vibramycin] fluticasone Allergy Unknown Verified 04/18/23 00:49 influenza virus vaccine, Allergy Swelling Verified 04/18/23 00:49 specific [Influenza Virus Vacc,Specific] losartan Allergy Angioedema Verified 04/18/23 00:49 pneumococcal vaccine Allergy Rash Verified 04/18/23 00:49 [Pneumococcal Vaccine] promethazine HCl Allergy Unknown Verified 04/18/23 00:49 [From Phenergan] tetracycline [Tetracycline] Allergy Unknown Verified 04/18/23 00:49 cephalexin [From Keflex] AdvReac Rash Verified 04/18/23 00:49 metronidazole [From Flagyl] AdvReac Unknown Verified 04/18/23 00:49 sulfamethoxazole AdvReac Rash Verified 04/18/23 00:49 [From Bactrim] trimethoprim [From Bactrim] AdvReac Rash Verified 04/18/23 00:49 Family History Mother Liver cancer Father Heart disease Surgical History History of cataract surgery History of exploratory laparotomy Hx of tonsillectomy Status post small bowel resection Status post total abdominal hysterectomy Social History household members: none Smoking Status: Never smoker alcohol intake: current alcohol intake frequency: holidays/special occasions only substance use type: does not use ROS ROS ED Constitutional Constitutional ED: Denies chills or fever(s) Eyes Eyes: Denies discharge from eye(s) ENT ENT ED: Denies discharge from eye(s), rhinorrhea or sore throat Cardiovascular Cardiovascular: Denies chest pain or palpitations Respiratory/Chest Respiratory/Chest: Denies cough or dyspnea Gastrointestinal Gastrointestinal: Denies abdominal pain, nausea or vomiting Genitourinary Genitourinary ED: Denies dysuria Musculoskeletal Musculoskeletal: Denies back pain or extremity pain Integumentary Denies Abrasions or rash Neurologic Neurologic: Reports weakness; Denies headache(s) Psychiatric Psychiatric: Denies anxiety or depression Allergic/Immunologic Allergic/Immunologic ED: Denies lip swelling or urticaria EXAM Physical Exam Const Vital Signs: 04/18/23 21:03 04/18/23 21:06 Temperature 96.6 F L Temperature Source Temporal Pulse Rate 65 Respiratory Rate 16 Respiratory Effort Normal Non-Labored Respiratory Pattern Normal Blood Pressure 145/66 H Blood Pressure Mean 92 Pulse Ox 97 Oxygen Delivery Method Room Air Positive well nourished and well developed General Appearance ED: well developed HEENT Reports moist mucous membranes Eyes EOMs intact bilaterally Chest Wall inspection of chest normal and palpation of chest normal Resp normal respiratory effort and clear to auscultation bilaterally Cardio regular rate and regular rhythm GI non-tender Palpation: soft Extremity normal to inspection Neuro Neuro Narrative: Generalized weakness with no focal deficit. MDM MDM MDM Narrative Medical decision making narrative: Patient's workup for this morning is reviewed. Lab work and urinalysis were unremarkable. Patient denies fall today. She does feel that she needs to go for rehab and is requesting to go to [place]. I will order repeat lab work and speak with hospitalist regarding admission. Discharge Plan Triage Chief Complaint: Weakness ED Provider: Joaquina Hoyt Dx/Rx/DC Orders Clinical Impression: Weakness Prescriptions: No Action metformin 500 MG tablet 500 mg PO TIDCM Patient Comments: DIABETES PreserVision AREDS-2 1 EACH capsule 1,000 mg PO DAILY venlafaxine 75 MG tablet 75 mg PO BID diphenhydramine HCl 25 MG capsule 12.5 mg PO QHS PRN (Reason: Insomnia) ascorbic acid (vitamin C) 1,000 mg Capsule, Extended Release 1,000 cap PO DAILY levothyroxine 88 mcg tablet 88 mcg PO DAILY methenamine mandelate 1 gram tablet 1 g PO BID hydrochlorothiazide 25 mg tablet 25 mg PO 1XD Patient Comments: TAKE 1 TABLET BY MOUTH ONCE DAILY menthol-zinc oxide [Calmoseptine] 0.44-20.6 % ointment 1 applic topical BID Protocol: *Topical Application Instructions APPLICATION INSTRUCTIONS: coccyx potassium chloride 20 mEq tablet extended release 40 meq PO DAILY cefpodoxime 100 mg tablet 100 mg PO BID Qty: 10 0RF Rx Instructions: must administer with a meal/food nitrofurantoin monohyd/m-cryst [Macrobid] 100 mg capsule 100 mg PO Q12H 5 Days Qty: 10 0RF Rx Instructions: must administer with a meal/food nitrofurantoin monohyd/m-cryst [nitrofurantoin monohyd/m-cryst] 100 mg capsule 100 mg PO Q12 Qty: 14 0RF potassium chloride 20 mEq/15 mL liquid 20 meq PO DAILY Qty: 450 0RF Primary Care Provider: Da Ocampo Referrals: Da Ocampo MD [Primary Care Provider] - Disposition Disposition: Acute Care Hospital [facility]
--- NOTE | 2023-04-18 21:23 | HP.PCM.HOS_ITS ---
HPI - General General Date of Admission: 04/18/23 Date of Service: 04/18/23 Chief Complaint: Adult FTT, unable to safely care for self, usually daughter helps but is not in town. HPI Narrative The patient is an 88 y/o F w/ PMHx: Hx Ovarian CA, Diabetes mellitus type II, Anxiety and Depression, Chronic cognitive impairment, HTN, Hypothyroidism, Hx SBO with bowel resection/BRANNON, presented to the [facility] ED initially on 04/17/23 with evaluation and recommendation for admission on 04/18/23 early AM secondary to adult failure to thrive, mechanical falls and difficulty caring for herself secondary to her family being out of town from whom she normally gets help/assistance with recommended admission and consideration SNF; however, she refused admission secondary to concerns about her cat who she reported as not having left food out for but she now re-presents to the [facility] ED on 04/18/24 again this late evening secondary to similarly ongoing issues with self-care and high fall risk as initially earlier in the day she been in the kitchen trying to get water and had to stabilize herself with a counter eventually sliding to the floor unable to get up prompting EMS and again tonight while attempting to get to the bathroom she was again weak and had to lower self to the ground prompting ED return. She does report that she normally uses a walker. Workup in the ED earlier in the day was not marked appearing with stable vital signs, unremark able CBC, stable appearing BMP, urinalysis with no evidence of any infection and plain films with no obvious acute issues given her recent fall. Current workup includes T96.6, heart rate 65, BP 145/66, respiratory rate 16, 97% on room air, CBC with WBC 4.8, hemoglobin 12.2, platelet 248 without marked shift, BMP with potassium 3.4, BUN/creatinine 22/0.73, glucose 180 otherwise unremarkable. [facility] Medical History Anxiety and depression Cognitive impairment DM (diabetes mellitus), type 2 Heart murmur History of ovarian cancer Hypertension Hypothyroidism Partial obstruction of small intestine Home Medications metformin 500 mg tablet 500 mg PO TIDCM blood sugar 12/10/13 [History Last Taken 03/23/22] vit C 250 mg-vit E 90 mg-zinc 40 mg-copper 1 [id number] capsule (PreserVision AREDS-2) 1,000 mg PO DAILY multivitamin 04/22/14 [History Last Taken 03/23/22] venlafaxine 75 mg tablet 75 mg PO BID depression 08/20/18 [History Last Taken 03/23/22] diphenhydramine HCl 25 mg capsule 12.5 mg PO QHS PRN Insomnia 11/09/18 [History Last Taken Unknown] ascorbic acid (vitamin C) 1,000 mg capsule,extended release 1,000 cap PO DAILY SUPPLEMENT 09/19/20 [History Last Taken 03/23/22] levothyroxine 88 mcg tablet 88 mcg PO DAILY THYROID 03/03/21 [History Last Taken 03/23/22] methenamine mandelate 1 gram tablet 1 g PO BID URINATION 03/03/21 [History Last Taken 03/23/22] hydrochlorothiazide 25 mg tablet 25 mg PO 1XD bp 03/24/22 [History Last Taken Unknown] menthol 0.44 %-zinc oxide 20.6 % topical ointment (Calmoseptine) 1 applic topical BID Check with primary doctor 03/24/22 [History Last Taken Unknown] potassium chloride 20 mEq tablet,extended release 40 meq PO DAILY Check with primary doctor 03/24/22 [History Last Taken 03/23/22] cefpodoxime 100 mg tablet 100 mg PO BID #10 tabs 03/25/22 [Rx Last Taken Unknown] nitrofurantoin monohydrate/macrocrystals 100 mg capsule (Macrobid) 100 mg PO Q12H 5 days #10 caps 07/18/22 [Rx Last Taken Unknown] nitrofurantoin monohydrate/macrocrystals 100 mg capsule 100 mg PO Q12 #14 CAPSULES 10/11/22 [Rx Last Taken Unknown] potassium chloride 20 mEq/15 mL oral liquid 20 meq (15 mL) PO DAILY #450 mL 10/11/22 [Rx Last Taken Unknown] Allergy/AdvReac Type Severity Reaction Status Date / Time amoxicillin [From Augmentin] Allergy Itching Verified 04/18/23 00:49 cefdinir Allergy Rash Verified 04/18/23 00:49 ciprofloxacin [From Cipro] Allergy Swelling Verified 04/18/23 00:49 clavulanic acid Allergy Itching Verified 04/18/23 00:49 [From Augmentin] doxycycline calcium Allergy Unknown Verified 04/18/23 00:49 [From Vibramycin] doxycycline hyclate Allergy Unknown Verified 04/18/23 00:49 [From Vibramycin] doxycycline monohydrate Allergy Unknown Verified 04/18/23 00:49 [From Vibramycin] fluticasone Allergy Unknown Verified 04/18/23 00:49 influenza virus vaccine, Allergy Swelling Verified 04/18/23 00:49 specific [Influenza Virus Vacc,Specific] losartan Allergy Angioedema Verified 04/18/23 00:49 pneumococcal vaccine Allergy Rash Verified 04/18/23 00:49 [Pneumococcal Vaccine] promethazine HCl Allergy Unknown Verified 04/18/23 00:49 [From Phenergan] tetracycline [Tetracycline] Allergy Unknown Verified 04/18/23 00:49 cephalexin [From Keflex] AdvReac Rash Verified 04/18/23 00:49 metronidazole [From Flagyl] AdvReac Unknown Verified 04/18/23 00:49 sulfamethoxazole AdvReac Rash Verified 04/18/23 00:49 [From Bactrim] trimethoprim [From Bactrim] AdvReac Rash Verified 04/18/23 00:49 Family History Mother Liver cancer Father Heart disease Surgical History History of cataract surgery History of exploratory laparotomy Hx of tonsillectomy Status post small bowel resection Status post total abdominal hysterectomy Social History household members: none Smoking Status: Never smoker alcohol intake: current alcohol intake frequency: holidays/special occasions only substance use type: does not use ROS ROS Narrative Admission Review of Systems: CONSTITUTIONAL: No weight loss, fever, chills, + weakness or fatigue. HEENT: + Chronic vision deficits. Eyes: No double vision or yellow sclerae. Ears, Nose, Throat: No hearing loss, sneezing, congestion, runny nose or sore throat. SKIN: No rash or itching, lesions, wounds except + Various staged ecchymoses, abrasions with fall history. CARDIOVASCULAR: No chest pain, chest pressure or chest discomfort, palpitations, edema, orthopnea, syncopal events. RESPIRATORY: No shortness of breath, cough or sputum, wheezing, hemoptysis. GASTROINTESTINAL: No anorexia, nausea, vomiting or diarrhea, abdominal pain, melena, BRBPR. GENITOURINARY: + Chronic urinary incontinence issues. No dysuria, frequency, urgency or retention. NEUROLOGICAL: No headache, dizziness, syncope, paralysis, ataxia, numbness or tingling in the extremities, focal weakness, change in bowel or bladder control, seizure. MUSCULOSKELETAL: + muscle, back pain, joint pain or stiffness. HEMATOLOGIC: No anemia. + Easy bleeding/bruising. LYMPHATICS: No enlarged nodes. No history of splenectomy. PSYCHIATRIC: + History anxiety and depression. ENDOCRINOLOGIC: No reports of sweating, cold or heat intolerance. No polyuria or polydipsia. ALLERGIES: + Hx angioedema. Vital Signs Vital Signs Vital Signs: 04/18/23 21:03 04/18/23 21:06 Temperature 96.6 F L Temperature Source Temporal Pulse Rate 65 Respiratory Rate 16 Respiratory Effort Normal Non-Labored Respiratory Pattern Normal Blood Pressure 145/66 H Blood Pressure Mean 92 Pulse Ox 97 Oxygen Delivery Method Room Air Weight Weight: 179 lb 3.773 oz Body Mass Index (BMI) 30.7 Physical Exam Narrative Physical Examination: General: Awakens to stimuli, fatigued, but with discussions becomes more alert, oriented to self, place, recent events, remains cooperative, seated upright in bed in no apparent distress. Skin: Normal color, normal turgor, no icterus, no cyanosis except noted various staged ecchymoses, abrasions. HEENT: AT/NC, EOMI, patient status post cataract surgeries with atypical appearance especially right eye but responsive bilaterally, mildly dry MM, no carotid bruits or JVD noted. Lungs: CTA bilaterally, moderate effort, mild decrease BL bases, no rales, ronchi or wheezing. Heart: Regular rate and rhythm; no gallop, rub audible. Abdomen: Soft, obese, NTTP, ND, mildly hyperactive BS, no HSM. Extremities: No cyanosis, clubbing, or edema. Neurological: Patient awake, alert, oriented as noted, cognitive function maciel spect baseline intact with chart reported underlying cognitive impairment; pupils equally reactive to light and accommodation, cranial nerves grossly normal, moving all 4 extremities, no focal deficits, strength moderately to severely globally decreased. Psychiatric: Affect appears flat, no acute evidence of depressive or anxiety feelings but does have underlying history. Results Lab / Micro Data 04/18/23 21:27 04/18/23 21:27 Assessment & Plan Assessment/Plan (1) Adult failure to thrive: PLAN: Plan The patient is an 88 y/o F w/ PMHx: Hx Ovarian CA, Diabetes mellitus type II, Anxiety and Depression, Chronic cognitive impairment, HTN, Hypothyroidism, Hx SBO with bowel resection/BRANNON, presented to the [facility] ED initially on 04/17/23 with evaluation and recommendation for admission on 04/18/23 early AM secondary to adult failure to thrive, mechanical falls and difficulty caring for herself secondary to her family being out of town from whom she normally gets help/assistance with recommended admission and consideration SNF; however, she refused admission secondary to concerns about her cat who she reported as not having left food out for but she now re-presents to the [facility] ED on 04/18/24 again this late evening secondary to similarly ongoing issues with self-care and high fall risk as initially earlier in the day she been in the kitchen trying to get water and had to stabilize herself with a counter eventually sliding to the floor unable to get up prompting EMS and again tonight while attempting to get to the bathroom she was again weak and had to lower self to the ground prompting ED return. #1. Adult failure to thrive with increasing weakness, debility, falls, high risk self-injury: Will admit to medical surgical floor, maintain on fall precautions, repeat labs in the ED with only mild hypokalemia noted which will be supplemented, as noted will assure TSH and free T4 appropriate, procalcitonin also requested to be certain there is no infection that is being missed but agai n CBC with no marked WC elevation and afebrile, PT/OT/case management consulted for discharge planning as patient likely would benefit from at least assisted living versus skilled facility placement. #2. History of bowel obstruction: Status post previous bowel resection, encouraged continued healthy bowel patterns and habits. #3. Anxiety and depression: We will continue patient home venlafaxine regimen. #4. Hypothyroidism: We will continue patient home levothyroxine regimen, TSH and free T4 requested to be cautious and assure not contributing to her current presentation. #5. Hypertension: Continue home regimen including hydrochlorothiazide but clarifying to be certain, PRN hydralazine. #6. Diabetes mellitus type II: Hold oral home regimen, ADA diet, accu checks w/ ISS. #7. History ovarian cancer: Status post total abdominal hysterectomy, considered in remission. #8. Chronic cognitive impairment: Complicates presentation, unclear if any behavioral disturbance issues, will maintain on fall precautions, PT/OT/case management consulted for discharge planning as noted. #9. Chronic vision deficits with cataract status post surgical intervention: Patient reports significant vision issues, likely contributes to difficulties with self-care especially with family not present, will maintain on fall precautions and continue plan of care as noted. #10 DVT prophylaxis: Lovenox. #11. CODE status: Patient states that HCPOA and living will are not in place but notes her daughters would be her decision makers if necessary. Discussed CODE status at length including difference between FULL code, DNR-CCA and DNR-CC status. Following discussions about the differences in these status, requested Full Code status. Advanced Care Planning Face to Face Time: 16 minutes. Charges/Coding Visit Charges Inpatient E&M: 26358 Init Hosp L2 Procedures Hospitalists Procedures: 86095 Advncd Care Plan 30 Min
--- NOTE | 2023-04-18 21:39 | ED.RN ---
Spoke with patients daughter Josey on the phone, gave her an update as her and her sister are out of town. Told daughter that patient is requesting to go back to [place], daughter states that she was there for rehab before and can no longer afford it. She states that patient refuses to go on medicaid because she will lose her house. Will update daughter when there is dispo decision made.
[2023-04-18 21:40] LABS: Absolute Lymphocyte Count 1.37 X10^3/uL (0.83-4.51); Basophil# 0.03 X10^3/uL; Basophil% 0.6 % (0-1); Eosinophil# 0.07 X10^3/uL; Eosinophils% 1.5 % (0-5); Hematocrit 38.1 % (37-47); Hemoglobin 12.2 g/dL (12.0-15.0); Lymphocyte # 1.37 X10^3/ul (0.83-4.51); Lymphocyte % 28.7 % (19-41); Mean Corpuscular Hgb 28.1 pg (27.0-32.0); Mean Corpuscular Volume 87.8 fL (81-99); Mean Platelet Vol. 9.6 fl (6.2-12.0); Monocyte# 0.33 X10^3/uL; Monocyte% 6.9 % (0-10); NRBC Flagged by Analyzer 0 % (0-5); Neutrophil # 2.96 X10^3/uL (2.7-7.7); Neutrophil % 62.1 % (47-70); Platelet Count 248 K/mm3 (150-450); RBC Distribution Width CV 12.7 % (11.6-14.6); RBC Distribution Width SD 41.2 fl (35.1-43.9); Red Blood Count 4.34 M/mm3 (4.2-5.4); White Blood Count 4.8 K/mm3 (4.4-11.0)
--- OUTSIDE RECORDS SUMMARY | 2023-04-18 21:41 | XMS RPT_ITS | CCD ---
Author Name Unknown Address [address] [place] [address] Organization [facility] Care Team Providers Care Disease Management Nurse Name Role Phone Da Ocampo MD Primary Care Provider [phone] Nahed Batista Unavailable JERRY NUGENT Attending Unavailable JERRY NUGENT Admitting Unavailable DA OCAMPO Primary Care Unavailable Da Ocampo MD Primary Care Provider [phone] Nahed Batista Unavailable [phone] DA OCAMPO Primary Care Unavailable PHONG TREJO Attending Unavailable DA OCAMPO Primary Care Unavailable DA OCAMPO Attending Unavailable DA OCAMPO Referring Unavailable DA OCAMPO Primary Care Unavailable DA OCAMPO Referring Unavailable DA OCAMPO Primary Care Unavailable DA OCAMPO Referring Unavailable DA OCAMPO Primary Care Unavailable DA OCAMPO Attending Unavailable DA OCAMPO Primary Care Unavailable DA OCAMPO Referring Unavailable JERRY NUGENT Attending Unavailable DA OCAMPO Primary Care Unavailable DA OCAMPO Primary Care Unavailable DA OCAMPO Attending Unavailable DA OCAMPO Primary Care Unavailable DA OCAMPO Referring Unavailable DA OCAMPO Primary Care Unavailable RIGO ABREU Attending Unavailable DA OCAMPO Primary Care Unavailable JERRY NUGENT Attending Unavailable DA OCAMPO Primary Care Unavailable KEVIN FOX Attending Unavailable DA OCAMPO Referring Unavailable DA OCAMPO Attending Unavailable DA OCAMPO Primary Care Unavailable DA OCAMPO Primary Care Unavailable DA OCAMPO Attending Unavailable Allergies Allergy Classification Reported Allergen(s) Allergy Type Date of Onset Reaction(s) Facility (20 sources) Amoxicillin / Clavulanate; Translations: [AMOXICILLIN-POT CLAVULANATE] Drug Allergy 04-25-20 18 Itching [facility] (13 sources) Angiotensin II receptor antagonist; Translations: [ARB-ANGIOTENSIN RECEPTOR ANTAGONIST] Drug Allergy 11-12-19 19 Angioedema [facility] Work Phone: (20 sources) Atenolol; Translations: [ATENOLOL] Drug Allergy 08-08-19 09 Itching [facility] Work Phone: (20 sources) cefdinir; Translations: [CEFDINIR] Drug Allergy 07-18-19 18 Rash [facility] (20 sources) Cephalexin; Translations: [CEPHALEXIN] Drug Allergy 10-12-19 19 Rash [facility] Work Phone: (20 sources) Ciprofloxacin; Translations: [CIPROFLOXACIN] Drug Allergy 11-13-19 19 Other: See Comments [facility] Work Phone: (20 sources) Doxycycline; Translations: [DOXYCYCLINE CALCIUM] Drug Allergy 01-10-20 05 [facility] Work Phone: (20 sources) meloxicam; Translations: [MELOXICAM] Drug Allergy 07-18-19 18 [facility] (20 sources) metroNIDAZOLE; Translations: [METRONIDAZOLE HCL] Drug Allergy 01-10-20 05 [facility] Work Phone: (20 sources) Promethazine; Translations: [PROMETHAZINE HCL] Drug Allergy 01-10-20 05 [facility] Work Phone: (20 sources) Sulfamethoxazole / Trimethoprim; Translations: [SULFAMETHOXAZOLE-TR IMETHOPRIM] Drug Allergy 07-18-19 18 [facility] (13 sources) Tetracycline (class of antibiotic); Translations: [TETRACYCLINES] Propensity to adverse reactions 01-10-20 05 [facility] Work Phone: (13 sources) Influenza Virus Vaccines; Translations: [INFLUENZA VIRUS VACCINES] Propensity to adverse reactions 02-26-20 06 Rash, Swelling, Itching [facility] Work Phone: (20 sources) Angiotensin II receptor antagonist Drug Allergy 11-12-19 19 Angioedema [facility] Work Phone: (20 sources) Tetracycline (class of antibiotic) Propensity to adverse reactions 01-10-20 05 [facility] Work Phone: (20 sources) Influenza Virus Vaccines Propensity to adverse reactions 02-26-20 06 Rash, Swelling, Itching [facility] Work Phone: (16 sources) Clavulanate; Translations: [CLAVULANIC ACID] Drug Allergy 10-12-19 Unknown [facility] (16 sources) fluticasone; Translations: [FLUTICASONE] Drug Allergy 10-12-19 Unknown [facility] (16 sources) Pneumococcal vaccine; Translations: [PNEUMOCOCCAL VACCINE] Drug Allergy 10-12-19 Unknown [facility] (16 sources) Sulfamethoxazole; Translations: [SULFAMETHOXAZOLE] Drug Allergy 10-12-19 Unknown [facility] (16 sources) Trimethoprim; Translations: [TRIMETHOPRIM] Drug Allergy 10-12-19 Unknown [facility] Medications Current Medications Medication Drug Class(es) Dates Sig (Normalized) Sig (Original) 24 hr desvenlafaxine succinate 50 mg extended release oral tablet (11 sources) Serotonin and Norepinephrine Reuptake Inhibitor Start: 11-16-2022 End: 11-16-2023 take 1 tablet by mouth once daily desvenlafaxine ER (PRISTIQ) 50 mg 24 hr tablet Take 1 tablet by mouth once daily. 90 tablet 3 11/16/2022 11/16/2023 Active Completed/Discontinued Medications Medication Drug Class(es) Dates Sig (Normalized) Sig (Original) amLODIPine 10 mg oral tablet (20 sources) Dihydropyridine Calcium Channel Ambreen Start: 03-14-2021 take 1 tablet by mouth once daily amLODIPine (NORVASC) 10 mg tablet Take 1 tablet by mouth once daily. 0 03/14/2021 Active Problems Active Problems Problem Classification Problem Date Documented Da te Episodic/Chronic Anxiety disorders (20 sources) Panic disorder without agoraphobia; Translations: [Panic disorder [episodic paroxysmal anxiety]] Onset: 06-26-2006 06-26-2006 Chronic Blindness and vision defects (2 sources) Visual impairment; Translations: [Unspecified visual loss] Onset: 11-16-2022 11-16-2022 Chronic Chronic ulcer of skin (2 sources) Pressure ulcer of coccygeal region; Translations: [Pressure ulcer of sacral region, unspecified stage] Onset: 11-16-2022 11-16-2022 Chronic Deficiency and other anemia (1 source) Anemia; Translations: [Anemia, unspecified] Episodic Delirium, dementia, and amnestic and other cognitive disorders (20 sources) Dementia; Translations: [Unspecified dementia without behavioral disturbance] Onset: 04-04-2022 Chronic Diabetes mellitus without complication (20 sources) Type 2 diabetes mellitus without complication; Translations: [Type 2 diabetes mellitus without complications] Onset: 07-17-2017 07-17-2017 Chronic Disorders of lipid metabolism (20 sources) Mixed hyperlipidemia; Translations: [Mixed hyperlipidemia] Onset: 07-10-2005 07-17-2017 Chronic Essential hypertension (20 sources) Benign essential hypertension; Translations: [Essential (primary) hypertension] Onset: 07-10-2005 07-10-2005 Chronic Genitourinary symptoms and ill-defined conditions (20 sources) Urge incontinence of urine; Translations: [Urge incontinence] Onset: 05-02-2021 05-02-2021 Chronic Glaucoma (20 sources) Glaucoma associated with ocular inflammation; Translations: [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, unspecified eye, stage unspecified] Onset: 01-15-2012 07-17-2017 Chronic Heart valve disorders (20 sources) Mitral valve regurgitation; Translations: [Nonrheumatic mitral (valve) insufficiency] Onset: 10-09-2017 10-09-2017 Chronic Intestinal obstruction without hernia (1 source) Small bowel obstruction; Translations: [Unspecified intestinal obstruction, unspecified as to partial versus complete obstruction] Episodic Mood disorders (20 sources) Recurrent major depression in remission; Translations: [Major depressive disorder, recurrent, in remission, unspecified] Onset: 05-15-2006 09-27-2017 Chronic Osteoarthritis (20 sources) Localized, primary osteoarthritis; Translations: [Unilateral primary osteoarthritis, unspecified knee] Onset: 08-02-2008 08-02-2008 Chronic Other eye disorders (1 source) Corneal pannus of right eye; Translations: [Pannus (corneal), right eye] 12-07-2022 Chronic Other eye disorders (1 source) Pannus (corneal), right eye; Translations: [Corneal pannus of right eye] Onset: 12-07-2022 Chronic Other eye disorders (1 source) Band keratopathy, left eye; Translations: [Band keratopathy, left] Onset: 12-04-2022 Episodic Other eye disorders (1 source) Bilateral eye band keratopathy; Translations: [Band keratopathy, bilateral] 12-07-2022 Episodic Other gastrointestinal disorders (16 sources) Irritable bowel syndrome; Translations: [Irritable bowel syndrome without diarrhea] 01-09-2005 Chronic Other gastrointestinal disorders (16 sources) Constipation; Translations: [Other constipation] 01-09-2005 Episodic Other nutritional; endocrine; and metabolic disorders (20 sources) Obesity; Translations: [Obesity, unspecified] Onset: 04-04-2022 04-04-2022 Chronic Other screening for suspected conditions (not mental disorders or infectious disease) (1 source) Encounter for screening for cardiovascular disorders; Translations: [Screening for ischemic heart disease] Onset: 01-21-2023 Episodic Other skin disorders (1 source) Disorder of left lower extremity; Translations: [Localized swelling, mass and lump, left lower limb] Episodic Other skin disorders (5 sources) Dry skin; 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] Onset: 04-04-2022 04-04-2022 Episodic Residual codes; unclassified (4 sources) Edema; Translations: [Edema, unspecified] Episodic Retinal detachments; defects; vascular occlusion; and retinopathy (20 sources) Degenerative disorder of macula ; Translations: [Unspecified macular degeneration] Onset: 04-04-2022 04-04-2022 Chronic Skin and subcutaneous tissue infections (1 source) Cellulitis of skin; Translations: [Cellulitis, unspecified] Episodic Thyroid disorders (20 sources) Hypothyroidism; Translations: [Hypothyroidism, unspecified] Onset: 08-03-2008 07-17-2017 Chronic Unclassified (1 source) NO SHOW 02-12-2023 Unclassified (1 source) Acute Visit Onset: 02-18-2023 Urinary tract infections (1 source) Recurrent urinary tract infection; Translations: [Urinary tract infection, site not specified] Episodic Past or Other Problems Problem Classification Problem Date Documented Da te Episodic/Chronic 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; Translations: [Personal history of malignant neoplasm of ovary] Onset: 04-04-2022 Episodic Other circulatory disease (20 sources) H/O: rheumatic fever; Translations: [Personal history of other diseases of the circulatory system] Onset: 04-04-2022 04-04-2022 Episodic Other eye disorders (1 source) Band keratopathy, bilateral; Translations: [Band keratopathy, bilateral] Onset: 12-07-2022 Episodic Other female genital disorders (20 sources) Dystrophy of vulva; Translations: [Dystrophy of vulva] Onset: 06-25-2005 06-25-2005 Episodic Other injuries and conditions due to external causes (20 sources) Angioedema; Translations: [Angioneurotic edema, initial encounter] Onset: 04-04-2022 04-04-2022 Episodic Other nutritional; endocrine; and metabolic disorders (20 sources) H/O: raised blood lipids; Translations: [Personal history of other endocrine, nutritional and metabolic disease] Onset: 04-04-2022 04-04-2022 Episodic Other nutritional; endocrine; and metabolic disorders (1 source) Personal history of other endocrine, nutritional and metabolic disease; Translations: [History of elevated lipids] Onset: 04-04-2022 Episodic Other skin disorders (16 sources) Xeroderma; 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] Onset: 04-04-2022 04-04-2022 Episodic Other skin disorders (1 source) Localized swelling, mass and lump, left lower limb; Translations: [Localized swelling, mass and lump, left lower limb] Onset: 04-04-2022 Episodic Residual codes; unclassified (20 sources) History of excision of small intestine; Translations: [Acquired absence of other specified parts of digestive tract] Onset: 04-04-2022 Episodic Residual codes; unclassified (1 source) Edema, unspecified; Translations: [Edema, unspecified type] Onset: 04-06-2022 Episodic Spondylosis; intervertebral disc disorders; other back problems (20 sources) Thoracic and lumbosacral neuritis; Translations: [Thoracic or lumbosacral neuritis or radiculitis, unspecified] Onset: 08-07-2006 08-07-2006 Episodic Superficial injury; contusion (20 sources) Abrasion, lower leg; Translations: [Abrasion, unspecified lower leg, initial encounter] Onset: 04-04-2022 04-04-2022 Episodic Results Test Name Value Interpretation Reference Range Facil ity Vital Signs Date Time Vital Sign Value Performing Clinician Jenae garrido 01-21-2023 15:03-0400 Diastolic blood pressure 74 mm[Hg] Kevin Fox MD Work Phone: [facility] 01-21-2023 15:03-0400 Heart rate 65 /min Kevin Fox MD Work Phone: [facility] 01-21-2023 15:03-0400 SaO2% (BldA) [Mass fraction] 97 % Kevin Fox MD Work Phone: [facility] 01-21-2023 15:03-0400 Systolic blood pressure 143 mm[Hg] Kevin Fox MD Work Phone: [facility] 11-16-2022 13:17-0400 Body weight 76.66 kg Da Ocampo MD Work Phone: [facility] 11-16-2022 13:17-0400 Diastolic blood pressure 62 mm[Hg] Da Ocampo MD Work Phone: [facility] 11-16-2022 13:17-0400 Heart rate 66 /min Da Ocampo MD Work Phone: [facility] 11-16-2022 13:17-0400 SaO2% (BldA) [Mass fraction] 97 % Da Ocampo MD Work Phone: [facility] 11-16-2022 13:17-0400 Systolic blood pressure 134 mm[Hg] Da Ocampo MD Work Phone: [facility] 07-23-2022 14:20-0400 Body temperature 97.59 [degF] Da Ocampo MD Work Phone: [facility] 07-23-2022 14:20-0400 Diastolic blood pressure 66 mm[Hg] Da Ocampo MD Work Phone: [facility] 07-23-2022 14:20-0400 Heart rate 62 /min Da Ocampo MD Work Phone: [facility] 07-23-2022 14:20-0400 SaO2% (BldA) [Mass fraction] 96 % Da Ocampo MD Work Phone: [facility] 07-23-2022 14:20-0400 Systolic blood pressure 144 mm[Hg] Da Ocampo MD Work Phone: [facility] 04-04-2022 15:49-0500 Body height 165.1 cm Da Ocampo MD Work Phone: [facility] 04-04-2022 15:49-0500 Body weight 76.2 kg Da Ocampo MD Work Phone: [facility] 04-04-2022 15:49-0500 Diastolic blood pressure 70 mm[Hg] Da Ocampo MD Work Phone: [facility] 04-04-2022 15:49-0500 Heart rate 64 /min Da Ocampo MD Work Phone: [facility] 04-04-2022 15:49-0500 SaO2% (BldA) [Mass fraction] 95 % Da Ocampo MD Work Phone: [facility] 04-04-2022 15:49-0500 Systolic blood pressure 142 mm[Hg] Da Ocampo MD Work Phone: [facility] Encounters Encounter Date Encounter Type Care Provider Facility Start: 03-29-2023 End: 03-29-2023 ambulatory DA OCAMPO Facility:[facility] Start: 02-18-2023 End: 02-18-2023 ambulatory Da Ocampo MD Work Phone: [facility] Plan of Treatment Date Care Activity Detail Author Start: 07-06-2027 Urine microalbumin profile [facility] Start: 11-17-2023 Hepatitis B surface antibody level LDL Cholesterol [facility] Start: 07-24-2023 Hepatitis B surface antibody level LDL CHOLESTEROL [facility] Start: 07-23-2023 End: 01-22-2024 Echocardiography ECHO Cardiology Routine Nonrheumatic aortic valve stenosis Expected: 07/23/2023, Expires: 01/22/2024 [facility] Work Phone: Immunizations Immunization Date Immunization Notes Care Provider Debi [email or web address] 07-05-2017 tetanus and diphther ia toxoids, adsorbed, preservative free, for adult use (2 Lf of tetanus toxoid and 2 Lf of diphtheria toxoid) Da Ocampo MD Work Phone: [facility] Work Phone: 07-05-2017 tetanus toxoid, redu luz marina diphtheria toxoid, and acellular pertussis vaccine, adsorbed Da Ocampo MD Work Phone: [facility] 12-10-2013 TD(adult) unspecifie d formulation Da Ocampo MD Work Phone: [facility] 10-20-2006 tetanus and diphther ia toxoids, adsorbed, preservative free, for adult use (2 Lf of tetanus toxoid and 2 Lf of diphtheria toxoid) Da Ocampo MD Work Phone: [facility] 09-30-2006 tetanus and diphther ia toxoids, adsorbed, preservative free, for adult use (2 Lf of tetanus toxoid and 2 Lf of diphtheria toxoid) Da Ocampo MD Work Phone: [facility] Work Phone: 02-22-2006 influenza virus vacc ine, unspecified formulation Da Ocampo MD Work Phone: [facility] Work Phone: 02-22-2006 pneumococcal polysaccharide vaccine, 23 valent Da Ocampo MD Work Phone: [facility] Work Phone: 02-22-2006 pneumococcal vaccine , unspecified formulation Da Ocampo MD Work Phone: [facility] 09-23-1994 tetanus and diphther ia toxoids, adsorbed, preservative free, for adult use (2 Lf of tetanus toxoid and 2 Lf of diphtheria toxoid) Da Ocampo MD Work Phone: [facility] Payers Date Payer Category Payer [employer] ( and others) [id number] 2022 Unknown FOR LIFE [id number] 2022-Present [phone] [address] [place] [address] Indemnity [id number] 2018 Unknown FOR LIFE [id number] 2018-Present [phone] [address] [place] [address] Indemnity [id number] 2001 Medicare MEDICARE MEDICAR E A AND B [id number] 2001-Present [phone] [address] [address] [place] [address] Medicare [id number] 2001 Medicare MEDICARE MEDICAR E A AND B [id number] 2001-Present [phone] [place] [address] Medicare [id number] 2001 Medicare [id number] Social History Date Type Detail Facility Start: 07-17-2017 End: 04-04-2022 Tobacco smoking status NHIS Never smoked tobacco [facility] Start: 05-05-2021 End: 01-21-2023 Alcohol intake Current non-drinker of alcohol (finding) [facility] Start: 10-09-2018 History SDOH Social Connections Phone 5 [facility] Start: 10-09-2018 History SDOH Social Connections Living 3 [facility] Start: 11-19-2019 History SDOH Food Worry 1 [facility] Start: 11-19-2019 History SDOH Transpo rt Med 2 [facility] Start: 1935 Sex Assigned At Not on file [facility] Start: 04-02-2021 End: 07-25-2021 Exposure to SARS-CoV-2 (event) Not sure [facility] Start: 07-17-2017 End: 04-04-2022 Tobacco use and exposure Smokeless tobacco non-user [facility] Start: 10-09-2018 End: 08-07-2022 History of Social function [facility] Start: 10-09-2018 End: 08-07-2022 Social connection and isolation panel [facility] Attends [employer] Not on file [facility] Work Phone: Are you now , , , , never or living with a partner? [facility] (I/We) worried wheth er (my/our) food would run out before (I/we) got money to buy more. Never true [facility] Work Phone: Start: 05-04-2020 Gender identity Identifies as female gender (finding) [facility] Start: 05-04-2020 Sexual orientation Heterosexual (dena matias) [facility] Medical Equipment Procedure Code Equipment Code Equipment Origin al Text Equipment Identifier Dates Graft [facility] Tis 8x5 mm Ttplst - [id number] Start: 01-31-2012 Goals Date Patient Goal Desired Activity /State Personal health goal Personal health goal Clinical Notes 01-19-2008 to 03-29-2023 Da Ocampo MD - 02/18/2023 9:00 AM ESTTelephone Encounter - Caridad Wong RN - 02/12/2023 4:56 PM ESTTelephone Encounter - Lisbet Springer LPN - 02/12/2023 3:36 PM EST Note Date & Type Note Facility 03-29-2023 Note HNO ID: [id number] Author: PHONG TREJO APRN.BOARD HAMMER OPERATOR Service: ? Author Type: Nurse Practitioner Type: Progress Notes Filed: 03/29/2023 15:04 Note Text: Chief Complaint Patient presents with: LESION, SKIN: Buttocks HPI Cindi Frey is a 87 year old female who presents here today for Above Complaints.. Per telephone encounter on 03/12/2023: Carolin More LPN 03/12/23 12:55 PM Note Pt calling requesting refill of Mycolog. States she has a rash on buttocks and a sore spot on buttocks that she can feel that is about the size of a dime. 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 States this is the same thing she had in the past and when Dr Ocampo prescribed this medication it really cleared it up. Pt will contact office if this does not help. Pt is requesting to have 2 tubes sent to pharm. Pended 60 g. Please review. Please call pt when rx has been sent to pharm. Please call pt back if she does not answer d/t it takes her a while to get to the phone. Carolin More LPN Currently today: Continues with the same rash and sore area. Sore area is on the left buttock, is about dime sized-is not bleeding or seeping. Does sit quite a bit, does not turn side to side. Sleeps in a recliner at nighttime and slides down further in the chair so she isn't sitting in the same spot. Has tried previously ordered Mycolog cream without improvement. Past medical history, appointments, medications, allergies reviewed. 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 Small bowel obstruction (HCC) 03/07/2021 Type II or unspecified type diabetes mellitus without mention of complication, not stated as uncontrolled Previous Surgical History PAST SURGICAL HISTORY Procedure Laterality Date AQUEOUS SHUNT EXTRAOC EQUAT PLATE RSVR W/GRAFT 01-31-12 OD 10-31-05 OS Ahmed Tube ENTEROLSS FRING INTSTINAL ADHESION SPX 09/23/2020 FREEING OF BOWEL ADHESION 03/07/2021 RESECT SMALL INTEST,SINGL RESEC/ANAS 09/23/2020 RESECT SMALL INTEST,SINGL RESEC/ANAS 03/07/2021 RMVL CORNEAL EPITHELIUM W/APPL CHELATING AGENT 12/04/2022 REMOVE CORNEAL EPITHELIUM TOTAL ABDOMINAL HYSTERECT W/WO RMVL TUBE OVARY Hysterectomy, ANGELES XCAPSL CTRC RMVL INSJ IO LENS PROSTH W/O ECP Cataract Removal Family History FAMILY HISTORY Problem Relation Age of Onset Cancer Mother liver Glaucoma Mother Heart Father chf Glaucoma Father Diabetes Maternal Grandmother Blindness No Family History Patient Allergies ALLERGIES Allergen Reactions Arb-Angiotensin Rec* Angioedema Atenolol Itching Augmentin [Amoxicil* Itching Bactrim [Sulfametho* Rash Cefdinir Rash Ciprofloxacin Other: See Comments ? angioedema Clavulanic Acid Unknown Flagyl [Metronidazo* Fluticasone Unknown Influenza Virus Vac* Rash, Swelling, Itching Keflex [Cephalexin] Rash Meloxicam Rash Phenergan [Prometha* Pneumococcal Vaccine Unknown Sulfamethoxazole Unknown Tcn [Tetracyclines] Trimethoprim Unknown Vibramycin [Doxycyc* Current Medications Current Outpatient Medications on File Prior to Visit Medication Sig nystatin-triamcinolone (MYCOLOG) ointment Apply sparingly to perineum twice daily for irritation/infection. levothyroxine (SYNTHROID) 88 mcg tablet Take 1 tablet by mouth daily before breakfast. prednisoLONE acetate (PRED FORTE) 1 % ophthalmic suspension Use 1 Drop in the left eye three times daily. tobramycin-dexAMETHasone (TOBRADEX) 0.3-0.1 % ophthalmic suspension Use 1-2 Drops in the left eye four times daily. into affected eye(s). multivitamin tablet Take 1 tablet by mouth once daily. vibegron (GEMTESA) 75 mg tablet Take 75 mg by mouth once daily. desvenlafaxine ER (PRISTIQ) 50 mg 24 hr tablet Take 1 tablet by mouth once daily. latanoprost (XALATAN) 0.005 % ophthalmic solution Use 1 Drop in both eyes once daily. nitrofurantoin monohydrate and macrocrystal (MACROBID) 100 mg capsule Take 1 tablet by mouth every 12 hours 6am/6pm. potassium chloride 20 mEq/15 mL solution take 15mL BY MOUTH EVERY DAY metFORMIN (GLUCOPHAGE) 500 mg tablet Take 1 tablet by mouth three times daily. hydroCHLOROthiazide (HYDRODIURIL, ESIDRIX) 25 mg tablet Take 1 tablet by mouth once daily. clindamycin (CLEOCIN) 150 mg capsule Take 1 capsule by mouth four times daily. amLODIPine (NORVASC) 10 mg tablet Take 1 tablet by mouth once daily. lisinopril (ZESTRIL, PRINIVIL) 20 mg tablet Take 1 tablet by mouth once daily. Methenamine Hippurate (HIPREX) 1 gram tablet Take (more content not included)... [facility] 02-18-2023 Note HNO ID: [id number] Author: Da Ocampo MD Service: ? Author Type: Physician Type: Progress Notes Filed: 02/18/2023 9:20 AM Note Text: Patient presents with: Acute Visit HPI:This Team Access Model visit is a phone encounter. It required patient-provider interaction for the medical decision making as documented below. Patient has elected to have a visit through distance medicine I have communicated my name and active licensure. The patient's identity and physical location were verified at the time of this visit. Either the patient or their legal pharmacy sales representative has been informed of the risks and benefits of -- and alternatives to -- treatment through a remote evaluation and consents to proceed with the evaluation remotely. She is unable to connect virtually. She has been having increased anxiety. Discussed risks of prn meds like benzos and needs to avoid. She has been having some stressful issues in her family. Has been worrying. Does feel better. No suicidal ideation Sleep is unchanged. Discussed risks and benefits of increasing her meds MEDICATIONS: Current Outpatient Medications Medication Sig levothyroxine (SYNTHROID) 88 mcg tablet Take 1 tablet by mouth daily before breakfast. prednisoLONE acetate (PRED FORTE) 1 % ophthalmic suspension Use 1 Drop in the left eye three times daily. tobramycin-dexAMETHasone (TOBRADEX) 0.3-0.1 % ophthalmic suspension Use 1-2 Drops in the left eye four times daily. into affected eye(s). multivitamin tablet Take 1 tablet by mouth once daily. vibegron (GEMTESA) 75 mg tablet Take 75 mg by mouth once daily. desvenlafaxine ER (PRISTIQ) 50 mg 24 hr tablet Take 1 tablet by mouth once daily. latanoprost (XALATAN) 0.005 % ophthalmic solution Use 1 Drop in both eyes once daily. nitrofurantoin monohydrate and macrocrystal (MACROBID) 100 mg capsule Take 1 tablet by mouth every 12 hours 6am/6pm. potassium chloride 20 mEq/15 mL solution take 15mL BY MOUTH EVERY DAY metFORMIN (GLUCOPHAGE) 500 mg tablet Take 1 tablet by mouth three times daily. hydroCHLOROthiazide (HYDRODIURIL, ESIDRIX) 25 mg tablet Take 1 tablet by mouth once daily. clindamycin (CLEOCIN) 150 mg capsule Take 1 capsule by mouth four times daily. amLODIPine (NORVASC) 10 mg tablet Take 1 tablet by mouth once daily. lisinopril (ZESTRIL, PRINIVIL) 20 mg tablet Take 1 tablet by mouth once daily. Methenamine Hippurate (HIPREX) 1 gram tablet Take 1 tablet by mouth twice daily. YDUKCPLI-[id number]-[id number] 3.5 MG/ML-10,000 UNIT/ML-0.1% EYE DROPS Use 1 Drop in both eyes twice daily. vit C,L-Yz-gtxyi-lutein-zeaxan (PRESERVISION AREDS-2) 250-90-40-1 mg Take 1 capsule by mouth once daily. polyethylene glycol 3350 (MIRALAX) 17 gram/dose powder Take 17 g by mouth once daily as needed for Constipation. diphenhydrAMINE (BENADRYL) 25 mg tablet Give one tablet every 6 hours as needed for itching or at bedtime as needed for insomnia aspirin, enteric coated (ASPIRIN, ENTERIC COATED) 81 mg EC tablet Take 81 mg by mouth once daily. Ascorbic Acid 1,000 mg tablet Take 1,000 mg by mouth once daily. erythromycin ophthalmic ointment Current Facility-Administered Medications Medication Dose Route Frequency perflutren lipid microspheres 1.3 mL in NaCl (PF) 0.9% 10 mL injection (DEFINITY) INTRAVENOUS DIRECTED PRN sodium chloride 0.9 % (flush) 10 mL (BD POSIFLUSH) 10 mL INTRAVENOUS DIRECTED PRN ALLERGIES: ALLERGIES Allergen Reactions Arb-Angiotensin Rec* Angioedema Atenolol Itching Augmentin [Amoxicil* Itching Bactrim [Sulfametho* Rash Cefdinir Rash Ciprofloxacin Other: See Comments ? 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 Small bowel obstruction (HCC) 03/07/2021 Type II or unspecified type diabetes mellitus without mention of complication, not stated as uncontrolled PAST SURGICAL HISTORY Procedure Laterality Date AQUEOUS SHUNT EXTRAOC EQUAT PLATE RSVR W/GRAFT 01-31-12 OD 10-31-05 OS Ahmed Tube ENTEROLSS FRING INTSTINAL ADHESION SPX 09/23/2020 FREEING OF BOWEL ADHESION 03/07/2021 RESECT SMALL INTEST,SINGL RESEC/ANAS 09/23/2020 RESECT SMALL INTEST,SINGL RESEC/ANAS 03/07/2021 RMVL CORNEAL EPITHELIUM W/APPL C (more content not included)... [facility] 02-18-2023 History of Present illness Narrative Patient presents with: Acute Visit HPI:This Team Access Model visit is a phone encounter. It required patient-provider interaction for the medical decision making as documented below. Patient has elected to have a visit through distance medicine I have communicated my name and active licensure. The patient's identity and physical location were verified at the time of this visit. Either the patient or their legal pharmacy sales representative has been informed of the risks and benefits of -- and alternatives to -- treatment through a remote evaluation and consents to proceed with the evaluation remotely. She is unable to connect virtually. She has been having increased anxiety. Discussed risks of prn meds like benzos and needs to avoid. She has been having some stressful issues in her family. Has been worrying. Does feel better. No suicidal ideation Sleep is unchanged. Discussed risks and benefits of increasing her meds MEDICATIONS: Current Outpatient Medications Medication Sig levothyroxine (SYNTHROID) 88 mcg tablet Take 1 tablet by mouth daily before breakfast. prednisoLONE acetate (PRED FORTE) 1 % ophthalmic suspension Use 1 Drop in the left eye three times daily. tobramycin-dexAMETHasone (TOBRADEX) 0.3-0.1 % ophthalmic suspension Use 1-2 Drops in the left eye four times daily. into affected eye(s). multivitamin tablet Take 1 tablet by mouth once daily. vibegron (GEMTESA) 75 mg tablet Take 75 mg by mouth once daily. desvenlafaxine ER (PRISTIQ) 50 mg 24 hr tablet Take 1 tablet by mouth once daily. latanoprost (XALATAN) 0.005 % ophthalmic solution Use 1 Drop in both eyes once daily. nitrofurantoin monohydrate and macrocrystal (MACROBID) 100 mg capsule Take 1 tablet by mouth every 12 hours 6am/6pm. potassium chloride 20 mEq/15 mL solution take 15mL BY MOUTH EVERY DAY metFORMIN (GLUCOPHAGE) 500 mg tablet Take 1 tablet by mouth three times daily. hydroCHLOROthiazide (HYDRODIURIL, ESIDRIX) 25 mg tablet Take 1 tablet by mouth once daily. clindamycin (CLEOCIN) 150 mg capsule Take 1 capsule by mouth four times daily. amLODIPine (NORVASC) 10 mg tablet Take 1 tablet by mouth once daily. lisinopril (ZESTRIL, PRINIVIL) 20 mg tablet Take 1 tablet by mouth once daily. Methenamine Hippurate (HIPREX) 1 gram tablet Take 1 tablet by mouth twice daily. ATCDZLJG-SIBJUBRSJ-MAWBQKHT 3.5 MG/ML-10,000 UNIT/ML-0.1% EYE DROPS Use 1 Drop in both eyes twice daily. vit C,V-Lx-wnpcr-lutein-zeaxan (PRESERVISION AREDS-2) 250-90-40-1 mg Take 1 capsule by mouth once daily. polyethylene glycol 3350 (MIRALAX) 17 gram/dose powder Take 17 g by mouth once daily as needed for Constipation. diphenhydrAMINE (BENADRYL) 25 mg tablet Give one tablet every 6 hours as needed for itching or at bedtime as needed for insomnia aspirin, enteric coated (ASPIRIN, ENTERIC COATED) 81 mg EC tablet Take 81 mg by mouth once daily. Ascorbic Acid 1,000 mg tablet Take 1,000 mg by mouth once daily. erythromycin ophthalmic ointment Current Facility-Administered Medications Medication Dose Route Frequency perflutren lipid microspheres 1.3 mL in NaCl (PF) 0.9% 10 mL injection (DEFINITY) INTRAVENOUS DIRECTED PRN sodium chloride 0.9 % (flush) 10 mL (BD POSIFLUSH) 10 mL INTRAVENOUS DIRECTED PRN ALLERGIES: ALLERGIES Allergen Reactions Arb-Angiotensin Rec* Angioedema Atenolol Itching Augmentin [Amoxicil* Itching Bactrim [Sulfametho* Rash Cefdinir Rash Ciprofloxacin Other: See Comments ? 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 Small bowel obstruction (HCC) 03/07/2021 Type II or unspecified type diabetes mellitus without mention of complication, not stated as uncontrolled PAST SURGICAL HISTORY Procedure Laterality Date AQUEOUS SHUNT EXTRAOC EQUAT PLATE RSVR W/GRAFT 01-31-12 OD 10-31-05 OS Ahmed Tube ENTEROLSS FRING INTSTINAL ADHESION SPX 09/23/2020 FREEING OF BOWEL ADHESION 03/07/2021 RESECT SMALL INTEST,SINGL RESEC/ANAS 09/23/2020 RESECT SMALL INTEST,SINGL RESEC/ANAS 03/07/2021 RMVL CORNEAL EPITHELIUM W/APPL CHELATING AGENT 12/04/2022 REMOVE CORNEAL EPITHELIUM TOTAL ABDOMINAL HYSTERECT W/WO RMVL TUBE OVARY Hysterectomy, ANGELES XCAPSL CTRC RMVL INSJ IO LENS PROSTH W/O ECP Cataract Removal FAMILY HISTORY Problem Relation Age of Onset Cancer Mother liver Glaucoma Mother Heart Father chf Glaucoma Father Diabetes Maternal Grandmother Blindness No Family History Social History Tobacco Use Smoking status: Never Smokeless tobacco: Never Vaping Use Vaping Use: Never used Substance Use Topics Alcohol use: No Drug use: No Reviewed current medications, allergies, past medical history, surgical history, family history and social history today. REVIEW OF SYSTEMS All other reviewed and negative other than HPI. VITALS: There were no vitals taken for this visit. Last 4 Encounter Wt Readings: Date: Wt: 11/16/2022 76.7 kg (169 lb) 04/04/2022 76.2 kg (168 lb) 08/02/2021 69.5 kg (153 lb 3.2 oz) 07/06/2021 71.3 kg (157 lb 3.2 oz) PHYSICAL EXAMINATION: Patient is alert and oriented during visit. Answers appropriately. ASSESSMENT/PLAN: 1. Anxiety - ICD9: 300.00, ICD10: F41.9 Continue meds. Call prn I spent 15 minutes in the visit, with more than 50% of the total [id number] time of the visit in counseling / coordination of care. Da Ocampo documented in this encounter [facility] 02-12-2023 Note HNO ID: [id number] Author: Da Ocampo MD Service: ? Author Type: Physician Type: Progress Notes Filed: 02/12/2023 3:12 PM Note Text: Attempted to call multiple times over 10 minute period. Was busy. Unable to connect via virtual. [facility] 02-12-2023 Miscellaneous Notes Patient called in. States she has been by the phone all day. She is not sure why she never got Dr. Ocampo's calls. Thinks she is having some troubles with her phone. Appt rescheduled as advised. Caridad Wong RN Phone continues to ring busy. Advised not to call the cell number. Attempted to call patient literally six times over 10 minutes and phone remained busy. Also attempted daughter's phone with no answer. Can we check on her. If continues to need seen will need rescheduled. documented in this encounter [facility] 02-12-2023 History of Present illness Narrative Attempted to call multiple times over 10 minute period. Was busy. Unable to connect via virtual. documented in this encounter [facility] 02-11-2023 Miscellaneous Notes Called patient but her phone was busy. I called patient's daughter and left her a voice message making her aware of Dr. Nugent's last notes for her appointment on 12/12/2022. Per Dr. Nugent's notes patient taper drops per protocol ( tobradex/prednisolone 3 times a day for 1 week, then twice a day for 1 week, then once a day for 1 week, then stop left eye. ) Patient is to follow up with Dr. Miller/ Dr. Bailey and then follow up with Dr. Nugent as needed. Please advise RADHA Espinoza Pt called confused about a procedure and if she was supposed to have been doing some eyedrops in her eyes for post op. She did not remember doing anything and had the date of her procedure confused. She just wants confirmation on what she should have done after Dr. Nugent removed calcium from her eye she thought in December. documented in this encounter [facility] 02-11-2023 Miscellaneous Notes Called patient but her phone was busy. I called patient's daughter and left her a voice message making her aware of Dr. Nugent's last notes for her appointment on 12/12/2022. Per Dr. Nugent's notes patient taper drops per protocol ( tobradex/prednisolone 3 times a day for 1 week, then twice a day for 1 week, then once a day for 1 week, then stop left eye. ) Patient is to follow up with Dr. Miller/ Dr. Bailey and then follow up with Dr. Nugent as needed. Please advise RADHA Espinoza documented in this encounter [facility] 02-08-2023 Miscellaneous Notes Spoke with patient and scheduled for 02/12/23 @ 3pm. Teresa Sarmiento Called patient twice. She picks up the phone says sunshine, sits there for a moment (I can hear her breathing) and then she hangs up. I tried to explain who I was and where I was calling from but she still hangs up. Teresa Sarmiento Unable to reach patient and no voicemail. Please be sure when reaching out to patient to stress she can't just take an extra Prestiq on a day she feels she needs it. Stay on current meds. Can do follow up in upcoming appt. Can even do virtual on a . Patient saw Dr. Ocampo on 11/16/22. Was prescribed Pristiq for panic disorder. Pt was to follow up in 6 weeks from then, in December. Patient forgot about this. Patient calling to state there are no F/U appts available with Dr. Ocampo until March and she prefers not to follow up with another provider. Appt not made yet. Patient asking if she can give Dr. Ocampo this verbal update on how she's doing: Reports she can't tell if Pristiq is working or not. States has days she thinks it's working and other days maybe not. Asking if okay to take one additional pill on days she feels she needs more?Please advise. Patient also states she saw Dr. Fox in Cardiology on 01/21, as Dr. Ocampo wanted her to, to check her heart murmur . Pt states Dr. Fox said everything seemed to be okay for now and to follow up with him in 6 months. No med changes. OV note can be reviewed by Dr. Ocampo in Epic. Patient asking when Dr. Ocampo wants her to see him, however it won't be until next year. Please call patient with reply. Thank you. documented in this encounter [facility] 02-06-2023 Miscellaneous Notes LISETTE-11/16/22 Labs-11/16/22 NOV-02/12/23 Pharm. stated Pt has no refills and needs new Rx Bette Small LPN documented in this encounter [facility] 01-21-2023 Note HNO ID: [id number] Author: Kevin Fox MD Service: ? Author Type: Physician Type: Progress Notes Filed: 01/21/2023 5:17 PM Note Text: Kevin Fox MD Interventional Cardiology [address] [place] [address] Chief Complaint Patient presents with: New Patient HISTORY OF PRESENT ILLNESS: Ms. Frey is a 87 year old female seen in my office today for assessment management of nonrheumatic aortic valve stenosis Patient had longstanding history of hypertensive heart disease known with aortic valve which progressively got worse over the last couple of years she is very limited because of her physical debility and using walker to walk around but denies any chest pain or shortness of breath no syncope or presyncope Echocardiography revealed normal left ventricular function with moderate severe aortic stenosis peak gradient of 28 mean gradient of 16 and aortic valve area measured at 0.81 with a left ventricular outflow tract stroke-volume index of 29 mill per square meter consistent with a low-flow low gradient moderate severe aortic stenosis Cardiac Risk Factors age (male over 45, female over 55), hyperlipidemia, hypertension, family history of CAD PAST MEDICAL HISTORY Diagnosis Date Abdominal pain, left lower quadrant Hypothyroidism 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 Small bowel obstruction (HCC) 03/07/2021 Type II or unspecified type diabetes mellitus without mention of complication, not stated as uncontrolled PAST SURGICAL HISTORY Procedure Laterality Date AQUEOUS SHUNT EXTRAOC EQUAT PLATE RSVR W/GRAFT 01-31-12 OD 10-31-05 OS Ahmed Tube ENTEROLSS FRING INTSTINAL ADHESION SPX 09/23/2020 FREEING OF BOWEL ADHESION 03/07/2021 RESECT SMALL INTEST,SINGL RESEC/ANAS 09/23/2020 RESECT SMALL INTEST,SINGL RESEC/ANAS 03/07/2021 RMVL CORNEAL EPITHELIUM W/APPL CHELATING AGENT 12/04/2022 REMOVE CORNEAL EPITHELIUM TOTAL ABDOMINAL HYSTERECT W/WO RMVL TUBE OVARY Hysterectomy, ANGELES XCAPSL CTRC RMVL INSJ IO LENS PROSTH W/O ECP Cataract Removal FAMILY HISTORY Problem Relation Age of Onset Cancer Mother liver Glaucoma Mother Heart Father chf Glaucoma Father Diabetes Maternal Grandmother Blindness No Family History Social History Tobacco Use Smoking status: Never Smokeless tobacco: Never Vaping Use Vaping Use: Never used Substance Use Topics Alcohol use: No Drug use: No ALLERGIES Allergen Reactions Arb-Angiotensin Rec* Angioedema Atenolol Itching Augmentin [Amoxicil* Itching Bactrim [Sulfametho* Rash Cefdinir Rash Ciprofloxacin Other: See Comments ? angioedema Clavulanic Acid Unknown Flagyl [Metronidazo* Fluticasone Unknown Influenza Virus Vac* Rash, Swelling, Itching Keflex [Cephalexin] Rash Meloxicam Rash Phenergan [Prometha* Pneumococcal Vaccine Unknown Sulfamethoxazole Unknown Tcn [Tetracyclines] Trimethoprim Unknown Vibramycin [Doxycyc* Medications: Current Outpatient Medications Medication Sig Dispense Refill prednisoLONE acetate (PRED FORTE) 1 % ophthalmic suspension Use 1 Drop in the left eye three times daily. 5 mL 0 tobramycin-dexAMETHasone (TOBRADEX) 0.3-0.1 % ophthalmic suspension Use 1-2 Drops in the left eye four times daily. into affected eye(s). 5 mL 1 multivitamin tablet Take 1 tablet by mouth once daily. vibegron (GEMTESA) 75 mg tablet Take 75 mg by mouth once daily. desvenlafaxine ER (PRISTIQ) 50 mg 24 hr tablet Take 1 tablet by mouth once daily. 90 tablet 3 latanoprost (XALATAN) 0.005 % ophthalmic solution Use 1 Drop in both eyes once daily. nitrofurantoin monohydrate and macrocrystal (MACROBID) 100 mg capsule Take 1 tablet by mouth every 12 hours 6am/6pm. potassium chloride 20 mEq/15 mL solution take 15mL BY MOUTH EVERY DAY metFORMIN (GLUCOPHAGE) 500 mg tablet Take 1 tablet by mouth three times daily. 90 tablet 11 hydroCHLOROthiazide (HYDRODIURIL, ESIDRIX) 25 mg tablet Take 1 tablet by mouth once daily. 90 tablet 3 clindamycin (CLEOCIN) 150 mg capsule Take 1 capsule by mouth four times daily. 40 capsule 0 levothyroxine (SYNTHROID) 88 mcg tablet Take 1 tablet by mouth daily before breakfast. 90 tablet 3 amLODIPine (NORVASC) 10 mg tablet Take 1 tablet by mouth once daily. lisinopril (ZESTRIL, PRINIVIL) 20 mg tablet Take 1 tablet by mouth once daily. Methenamine Hippurate (HIPREX) 1 gram tablet Take 1 tablet by mouth twice daily. RKOOQBLY-FGVYHOTJM-LAXXQJUX 3.5 MG/ML-10,000 UNIT/ML-0.1% EYE DROPS Use 1 Drop in both eyes twice daily. vit C,W-Gq-mqvqq-lutein-zeaxan (PRESERVISION AREDS-2) 250-90-40-1 m (more content not included)... [facility] 01-21-2023 History of Present illness Narrative Images from the original note were not included. Kevin Fox MD Interventional Cardiology [address] [place] [address] Chief Complaint Patient presents with: New Patient HISTORY OF PRESENT ILLNESS: Ms. Frey is a 87 year old female seen in my office today for assessment management of nonrheumatic aortic valve stenosis Patient had longstanding history of hypertensive heart disease known with aortic valve which progressively got worse over the last couple of years she is very limited because of her physical debility and using walker to walk around but denies any chest pain or shortness of breath no syncope or presyncope Echocardiography revealed normal left ventricular function with moderate severe aortic stenosis peak gradient of 28 mean gradient of 16 and aortic valve area measured at 0.81 with a left ventricular outflow tract stroke-volume index of 29 mill per square meter consistent with a low-flow low gradient moderate severe aortic stenosis Cardiac Risk Factors age (male over 45, female over 55), hyperlipidemia, hypertension, family history of CAD PAST MEDICAL HISTORY Diagnosis Date Abdominal pain, left lower quadrant Hypothyroidism 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 Small bowel obstruction (HCC) 03/07/2021 Type II or unspecified type diabetes mellitus without mention of complication, not stated as uncontrolled PAST SURGICAL HISTORY Procedure Laterality Date AQUEOUS SHUNT EXTRAOC EQUAT PLATE RSVR W/GRAFT 01-31-12 OD 10-31-05 OS Ahmed Tube ENTEROLSS FRING INTSTINAL ADHESION SPX 09/23/2020 FREEING OF BOWEL ADHESION 03/07/2021 RESECT SMALL INTEST,SINGL RESEC/ANAS 09/23/2020 RESECT SMALL INTEST,SINGL RESEC/ANAS 03/07/2021 RMVL CORNEAL EPITHELIUM W/APPL CHELATING AGENT 12/04/2022 REMOVE CORNEAL EPITHELIUM TOTAL ABDOMINAL HYSTERECT W/WO RMVL TUBE OVARY Hysterectomy, ANGELES XCAPSL CTRC RMVL INSJ IO LENS PROSTH W/O ECP Cataract Removal FAMILY HISTORY Problem Relation Age of Onset Cancer Mother liver Glaucoma Mother Heart Father chf Glaucoma Father Diabetes Maternal Grandmother Blindness No Family History Social History Tobacco Use Smoking status: Never Smokeless tobacco: Never Vaping Use Vaping Use: Never used Substance Use Topics Alcohol use: No Drug use: No ALLERGIES Allergen Reactions Arb-Angiotensin Rec* Angioedema Atenolol Itching Augmentin [Amoxicil* Itching Bactrim [Sulfametho* Rash Cefdinir Rash Ciprofloxacin Other: See Comments ? angioedema Clavulanic Acid Unknown Flagyl [Metronidazo* Fluticasone Unknown Influenza Virus Vac* Rash, Swelling, Itching Keflex [Cephalexin] Rash Meloxicam Rash Phenergan [Prometha* Pneumococcal Vaccine Unknown Sulfamethoxazole Unknown Tcn [Tetracyclines] Trimethoprim Unknown Vibramycin [Doxycyc* Medications: Current Outpatient Medications Medication Sig Dispense Refill prednisoLONE acetate (PRED FORTE) 1 % ophthalmic suspension Use 1 Drop in the left eye three times daily. 5 mL 0 tobramycin-dexAMETHasone (TOBRADEX) 0.3-0.1 % ophthalmic suspension Use 1-2 Drops in the left eye four times daily. into affected eye(s). 5 mL 1 multivitamin tablet Take 1 tablet by mouth once daily. vibegron (GEMTESA) 75 mg tablet Take 75 mg by mouth once daily. desvenlafaxine ER (PRISTIQ) 50 mg 24 hr tablet Take 1 tablet by mouth once daily. 90 tablet 3 latanoprost (XALATAN) 0.005 % ophthalmic solution Use 1 Drop in both eyes once daily. nitrofurantoin monohydrate and macrocrystal (MACROBID) 100 mg capsule Take 1 tablet by mouth every 12 hours 6am/6pm. potassium chloride 20 mEq/15 mL solution take 15mL BY MOUTH EVERY DAY metFORMIN (GLUCOPHAGE) 500 mg tablet Take 1 tablet by mouth three times daily. 90 tablet 11 hydroCHLOROthiazide (HYDRODIURIL, ESIDRIX) 25 mg tablet Take 1 tablet by mouth once daily. 90 tablet 3 clindamycin (CLEOCIN) 150 mg capsule Take 1 capsule by mouth four times daily. 40 capsule 0 levothyroxine (SYNTHROID) 88 mcg tablet Take 1 tablet by mouth daily before breakfast. 90 tablet 3 amLODIPine (NORVASC) 10 mg tablet Take 1 tablet by mouth once daily. lisinopril (ZESTRIL, PRINIVIL) 20 mg tablet Take 1 tablet by mouth once daily. Methenamine Hippurate (HIPREX) 1 gram tablet Take 1 tablet by mouth twice daily. [id number] 3.5 MG/ML-10,000 UNIT/ML-0.1% EYE DROPS Use 1 Drop in both eyes twice daily. vit C,Z-Xy-pgevb-lutein-zeaxan (PRESERVISION AREDS-2) 250-90-40-1 mg Take 1 capsule by mouth once daily. polyethylene glycol 3350 (MIRALAX) 17 gram/dose powder Take 17 g by mouth once daily as needed for Constipation. 1 Bottle diphenhydrAMINE (BENADRYL) 25 mg tablet Give one tablet every 6 hours as needed for itching or at bedtime as needed for insomnia aspirin, enteric coated (ASPIRIN, ENTERIC COATED) 81 mg EC tablet Take 81 mg by mouth once daily. Ascorbic Acid 1,000 mg tablet Take 1,000 mg by mouth once daily. erythromycin ophthalmic ointment Current Facility-Administered Medications Medication Dose Route Frequency Provider Last Rate Last Admin perflutren lipid microspheres 1.3 mL in NaCl (PF) 0.9% 10 mL injection (DEFINITY) INTRAVENOUS DIRECTED PRN Kevin Fox MD sodium chloride 0.9 % (flush) 10 mL (BD POSIFLUSH) 10 mL INTRAVENOUS DIRECTED PRN Kevin Fox, MD perflutren lipid microspheres 1.3 mL in NaCl (PF) 0.9% 10 mL injection (DEFINITY) INTRAVENOUS DIRECTED Da Jackson MD sodium chloride 0.9 % (flush) 10 mL (BD POSIFLUSH) 10 mL INTRAVENOUS DIRECTED Da Jackson MD Review of Systems Constitutional: Negative for chills, diaphoresis, fever, malaise/fatigue and weight loss. HENT: Negative for congestion, ear discharge, ear pain, hearing loss, nosebleeds, sinus pain, sore throat and tinnitus. Eyes: Negative for blurred vision, double vision, photophobia, pain, discharge and redness. Respiratory: Negative for cough, hemoptysis, sputum production, shortness of breath, wheezing and stridor. Cardiovascular: Negative for chest pain, palpitations, orthopnea, claudication, leg swelling and PND. Gastrointestinal: Negative for abdominal pain, blood in stool, constipation, diarrhea, heartburn, melena, nausea and vomiting. Genitourinary: Negative for dysuria, flank pain, frequency, hematuria and urgency. Musculoskeletal: Negative for back pain, falls, joint pain, myalgias and neck pain. Skin: Negative for itching and rash. Neurological: Negative for dizziness, tingling, tremors, sensory change, speech change, focal weakness, seizures, loss of consciousness, weakness and headaches. Endo/Heme/Allergies: Negative for environmental allergies and polydipsia. Does not bruise/bleed easily. Psychiatric/Behavioral: Negative for depression, hallucinations, memory loss, substance abuse and suicidal ideas. The patient is not nervous/anxious and does not have insomnia. Physical Examination: Vitals:BP 143/74 Pulse 65 SpO2 97% BP w/Orthostatic Vitals Date and Time Orthostatic BP Orthostatic Pulse BP Pulse BP Position BP Site BP Cuff Size 01/21/23 1503 -- -- 143/74 65 -- -- -- Last 2 Encounter Wt Readings: Date: Wt: 11/16/2022 76.7 kg (169 lb) 04/04/2022 76.2 kg (168 lb) Physical Exam Constitutional: General: She is not in acute distress. Appearance: She is not diaphoretic. HENT: Head: Normocephalic and atraumatic. Right Ear: External ear normal. Left Ear: External ear normal. Nose: Nose normal. Mouth/Throat: Pharynx: Oropharynx is clear. Eyes: General: Right eye: No discharge. Left eye: No discharge. Conjunctiva/sclera: Conjunctivae normal. Pupils: Pupils are equal, round, and reactive to light. Cardiovascular: Rate and Rhythm: Normal rate and regular rhythm. Heart sounds: S1 normal and S2 normal. Murmur heard. No friction rub. No gallop. No S3 or S4 sounds. Pulmonary: Effort: Pulmonary effort is normal. No respiratory distress. Breath sounds: Normal breath sounds. No wheezing or rales. Chest: Chest wall: No tenderness. Musculoskeletal: General: Normal range of motion. Cervical back: Normal range of motion and neck supple. Skin: General: Skin is warm and dry. Neurological: Mental Status: She is alert and oriented to person, place, and time. Psychiatric: Mood and Affect: Mood normal. Thought Content: Thought content normal. Pertinent Labs: CBC: Hemoglobin (g/dL) Date Value 11/16/2022 12.2 05/04/2020 12.8 Hematocrit (%) Date Value 11/16/2022 38.0 05/04/2020 40.3 WBC (k/uL) Date Value 11/16/2022 4.90 05/04/2020 4.86 Platelet Count (k/uL) Date Value 11/16/2022 214 05/04/2020 261 BMP: Glucose (mg/dL) Date Value 11/16/2022 225 05/04/2020 221 Potassium (mmol/L) Date Value 11/16/2022 3.9 05/04/2020 3.9 Sodium (mmol/L) Date Value 11/16/2022 136 05/04/2020 138 Chloride (mmol/L) Date Value 11/16/2022 97 05/04/2020 98 CO2 (mmol/L) Date Value 11/16/2022 29 05/04/2020 29 Creatinine (mg/dL) Date Value 11/16/2022 0.81 05/04/2020 0.88 BUN (mg/dL) Date Value 11/16/2022 28 05/04/2020 22 Anion Gap (mmol/L) Date Value 11/16/2022 10 05/04/2020 11 Calcium (mg/dL) Date Value 05/04/2020 9.9 Calcium, Total (mg/dL) Date Value 11/16/2022 9.9 INR: Lipid Profile: Total Cholesterol, Nonfasting Date Value Ref Range Status 11/16/2022 225 (H) <200 mg/dL Final Comment: <200 mg/dL, Desirable 200-239 mg/dL, Borderline high >239 mg/dL, High HDL Cholesterol, Nonfasting Date Value Ref Range Status 11/16/2022 74 >39 mg/dL Final Comment: 40-59 mg/dL, Acceptable >59 mg/dL, High: Negative risk factor for coronary heart disease <40 mg/dL, Low: Positive risk factor for coronary heart disease LDL Cholesterol, Nonfasting Date Value Ref Range Status 11/16/2022 134 (H) <100 mg/dL Final Comment: <100 mg/dL, Optimal 100-129 mg/dL, Near optimal/above optimal 130-159 mg/dL, Borderline high 160-189 mg/dL, High >189 mg/dL, Very high Secondary prevention optimal LDL Cholesterol levels are recommended to be < 70 mg/dL Triglycerides, Nonfasting Date Value Ref Range Status 11/16/2022 85 <150 mg/dL Final Comment: <150 mg/dL, Normal 150-199 mg/dL, Borderline high 200-499 mg/dL, High >499 mg/dL, Very high Hemoglobin A1C: No results found for: HGBA1C TSH: No results found for: TSHREFL Prior Cardiac Testing Echo EKG Assessment and Plan: 87 years old female patient with asymptomatic low-flow low gradient moderate severe aortic stenosis ASSESSMENT/PLAN: 1. Nonrheumatic aortic valve stenosis - ICD9: 424.1, ICD10: I35.0 (primary diagnosis) Echo findings and clinical examination consistent with low-flow low gradient moderate severe aortic stenosis Giving her physical debility and lack of symptoms at this time we will keep monitoring it on a regular basis We will repeat her echo in 6 months Follow-up in 6 months - ECHO - PERFLUTREN LIPID MICROSPHERES 1.1 MG/ML INJECTION IN NS 10 ML - SODIUM CHLORIDE 0.9 % (FLUSH) INJECTION SYRINGE 2. Aortic valve disorder - ICD9: 424.1, ICD10: I35.9 Nonrheumatic aortic valve stenosis asymptomatic we will continue monitoring 3. Essential hypertension, benign - ICD9: 401.1, ICD10: I10 - Controlled - Continue current medications - Recommend home blood pressure monitoring, to bring results to next visit - Encouraged sodium restriction, DASH or Mediterranean diet - Recommend regular aerobic exercise Kevin Fox MD Follow up plannin MONTHS Electronically signed by Kevin Fox MD on January 21, 2023, 5:13 PM The above note was partially created using a dictation recognition software. A reasonable attempt has been made to correct any errors. documented in this encounter [facility] 12-12-2022 Note HNO ID: [id number] Author: Jerry Nugent MD Service: ? Author Type: Physician Type: Progress Notes Filed: 12/12/2022 1:57 PM Note Text: Assessment and Plan 1. Band keratopathy, bilateral -dense and significant both eyes 2. 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 Bailey 4. 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 Leija 5. Pseudophakia -stable both eyes Plan: -cornea looks good after EDTA chelation left eye -taper drops per protocol -continue artificial tears -latanoprost at bedtime both eyes -follow-up Dr. Miller/Lynn. Me as needed I have confirmed and edited as necessary the relevant ophthalmic history, ROS, and the neuro exam findings as obtained by others. I have seen and examined Cindi Frey. I have discussed the case and the management of this patient's care with the Resident/Fellow, if applicable. I also have reviewed and agree with the assessment and plan as stated above and agree with all of its relevant components. Jerry Nugent MD [facility] 12-07-2022 Note HNO ID: [id number] Author: Rigo Abreu, EVER Service: ? Author Type: AERONAUTICAL PROJECT ENGINEER Type: Progress Notes Filed: 12/07/2022 4:21 PM Note Text: 1. 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 Nugent next week 3. 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 Giuliana Abreu, OD December 07, 2022 4:20 PM [facility] 12-07-2022 History of Present illness Narrative 1. 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 Nugent next week 3. 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 Giuliana Abreu, OD December 07, 2022 4:20 PM documented in this encounter [facility] 12-07-2022 Miscellaneous Notes Patient scheduled with Dr. Abreu 12/07/22 per message from Leyla Per secure Chat Message with Dr. Nugent: can we get her seen by Dr Abreu tomorrow for fluorescein and bandage contact lens replacement if needed? Routed to Emilio Colon and [facility] staff to schedule. Aleja Castanon RN December 07, 2022 7:46 AM Message also sent to Dr. Nugent via Secure Chat. Aleja Castanon RN December 06, 2022 4:11 PM It is not uncommon for a bandage contact lens to be placed following a Chelation of the corneal epithelium to improve the comfort of the eye. Will route message to Dr. Nugent to advise. Aleja Castanon RN December 06, 2022 4:07 PM Images from the original note were not included. Leyla Garcia, OA Andrew 18 minutes ago (3:43 PM) BL This patient just underwent corneal surgery at [place] on 12/04/2022. I pasted below the PSR's not from her phone encounter with the patient. I am not seeing any documentation of him using a BCL. Would you be able to verify this for me before I contact the patient. Thank you, Joaquina Olivier 42 minutes ago (2:58 PM) BILLY Pt and daughter called regarding pts issue since cateract surgery. She states she was seeing better yesterday and wonders if that means she lost the contact in her eye. Does not know if that is normal concern. Wanted to let Dr. Nugent know and have someone call her. She will be at her post op visit next week as well. Pt and daughter called regarding pts issue since cateract surgery. She states she was seeing better yesterday and wonders if that means she lost the contact in her eye. Does not know if that is normal concern. Wanted to let Dr. Nugent know and have someone call her. She will be at her post op visit next week as well. documented in this encounter [facility] documented as of this encounter (statuses as of 12/07/2022) [facility]09-12-2023 History of Past illness Narrative* Problem Noted Date Diagnosed Date Resolved Date Band keratopathy, left 12/04/202212/04 Accidental fall 04/04/2022 04/04/2022 Acute low back pain 04/04/2022 04/04/19 23 Adverse effect of drug 04/04/202204/04 Closed fracture of rib 04/04/202204/04 Diverticular disease 04/04/2022 023 Elevated liver enzymes 04/04/202204/04 Fecal impaction of colon 04/04/202201/2023 Hypokalemia 04/04/2022 04/04/2022 Intractable vomiting with nausea 04/04/2022 04/04/2022 Prerenal azotemia 04/04/2022 04/04/2022 Injury of kidney 04/04/2022 04/04/2022 Retention of urine 04/04/2022 Rib pain 04/04/2022 04/04/2022 Sepsis 04/04/2022 04/04/2022 Shoulder pain 04/04/2022 04/04/2022 Unspecified urinary incontinence 04/04/2022 04/04/2022 Weakness 04/04/2022 04/04/2022 Urinary tract infection 03/25/202203/25 Abdominal pain 10/03/2021 04/04/2022 Sprain and strain of unspeci fied site of shoulder and upper arm 01/19/2008 02/11/2020 Hypothyroidism, acquired 09/11/2005 Other constipation Abdominal pain, left lower quadrant 10/22/2017 Irritable bowel syndrome 01/2023 documented as of this encounter (statuses as of 12/08/2022) [facility] History of Past illness Narrative* Problem Noted Date Diagnosed Date Resolved Date Band keratopathy, left 12/04/202212/04 Accidental fall 04/04/2022 04/04/2022 Acute low back pain 04/04/2022 04/04/19 23 Adverse effect of drug 04/04/202204/04 Closed fracture of rib 04/04/202204/04 Diverticular disease 04/04/2022 023 Elevated liver enzymes 04/04/202204/04 Fecal impaction of colon 04/04/202201/2023 Hypokalemia 04/04/2022 04/04/2022 Intractable vomiting with nausea 04/04/2022 04/04/2022 Prerenal azotemia 04/04/2022 04/04/2022 Injury of kidney 04/04/2022 04/04/2022 Retention of urine 04/04/2022 Rib pain 04/04/2022 04/04/2022 Sepsis 04/04/2022 04/04/2022 Shoulder pain 04/04/2022 04/04/2022 Unspecified urinary incontinence 04/04/2022 04/04/2022 Weakness 04/04/2022 04/04/2022 Urinary tract infection 03/25/202203/25 Abdominal pain 10/03/2021 04/04/2022 Sprain and strain of unspeci fied site of shoulder and upper arm 01/19/2008 02/11/2020 Hypothyroidism, acquired 09/11/2005 Other constipation Abdominal pain, left lower quadrant 10/22/2017 Irritable bowel syndrome 01/2023 documented as of this encounter (statuses as of 01/22/2023) [facility] History of Past illness Narrative* Problem Noted Date Diagnosed Date Resolved Date Band keratopathy, left 12/04/202212/04 Accidental fall 04/04/2022 04/04/2022 Acute low back pain 04/04/2022 04/04/19 23 Adverse effect of drug 04/04/202204/04 Closed fracture of rib 04/04/202204/04 Diverticular disease 04/04/2022 023 Elevated liver enzymes 04/04/202204/04 Fecal impaction of colon 04/04/202201/2023 Hypokalemia 04/04/2022 04/04/2022 Intractable vomiting with nausea 04/04/2022 04/04/2022 Prerenal azotemia 04/04/2022 04/04/2022 Injury of kidney 04/04/2022 04/04/2022 Retention of urine 04/04/2022 3 Rib pain 04/04/2022 04/04/2022 Sepsis 04/04/2022 04/04/2022 Shoulder pain 04/04/2022 04/04/2022 Unspecified urinary incontinence 04/04/2022 04/04/2022 Weakness 04/04/2022 04/04/2022 Urinary tract infection 03/25/202203/25 Abdominal pain 10/03/2021 04/04/2022 Sprain and strain of unspeci fied site of shoulder and upper arm 01/19/2008 02/11/2020 Hypothyroidism, acquired 09/11/2005 Other constipation Abdominal pain, left lower quadrant 10/22/2017 Irritable bowel syndrome 01/2023 documented as of this encounter (statuses as of 02/06/2023) [facility] History of Past illness Narrative* Problem Noted Date Diagnosed Date Resolved Date Band keratopathy, left 12/04/202212/04 Accidental fall 04/04/2022 04/04/2022 Acute low back pain 04/04/2022 04/04/19 23 Adverse effect of drug 04/04/202204/04 Closed fracture of rib 04/04/202204/04 Diverticular disease 04/04/2022 023 Elevated liver enzymes 04/04/202204/04 Fecal impaction of colon 04/04/202201/2023 Hypokalemia 04/04/2022 04/04/2022 Intractable vomiting with nausea 04/04/2022 04/04/2022 Prerenal azotemia 04/04/2022 04/04/2022 Injury of kidney 04/04/2022 04/04/2022 Retention of urine 04/04/2022 3 Rib pain 04/04/2022 04/04/2022 Sepsis 04/04/2022 04/04/2022 Shoulder pain 04/04/2022 04/04/2022 Unspecified urinary incontinence 04/04/2022 04/04/2022 Weakness 04/04/2022 04/04/2022 Urinary tract infection 03/25/202203/25 Abdominal pain 10/03/2021 04/04/2022 Sprain and strain of unspeci fied site of shoulder and upper arm 01/19/2008 02/11/2020 Hypothyroidism, acquired 09/11/2005 Other constipation Abdominal pain, left lower quadrant 10/22/2017 Irritable bowel syndrome 01/2023 documented as of this encounter (statuses as of 02/08/2023) [facility] History of Past illness Narrative* Problem Noted Date Diagnosed Date Resolved Date Band keratopathy, left 12/04/202212/04 Accidental fall 04/04/2022 04/04/2022 Acute low back pain 04/04/2022 04/04/19 23 Adverse effect of drug 04/04/202204/04 Closed fracture of rib 04/04/202204/04 Diverticular disease 04/04/2022 023 Elevated liver enzymes 04/04/202204/04 Fecal impaction of colon 04/04/202201/2023 Hypokalemia 04/04/2022 04/04/2022 Intractable vomiting with nausea 04/04/2022 04/04/2022 Prerenal azotemia 04/04/2022 04/04/2022 Injury of kidney 04/04/2022 04/04/2022 Retention of urine 04/04/2022 Rib pain 04/04/2022 04/04/2022 Sepsis 04/04/2022 04/04/2022 Shoulder pain 04/04/2022 04/04/2022 Unspecified urinary incontinence 04/04/2022 04/04/2022 Weakness 04/04/2022 04/04/2022 Urinary tract infection 03/25/202203/25 Abdominal pain 10/03/2021 04/04/2022 Sprain and strain of unspeci fied site of shoulder and upper arm 01/19/2008 02/11/2020 Hypothyroidism, acquired 09/11/2005 Other constipation 3 Abdominal pain, left lower quadrant 10/22/2017 Irritable bowel syndrome 01/2023 documented as of this encounter (statuses as of 02/11/2023) [facility] History of Past illness Narrative* Problem Noted Date Diagnosed Date Resolved Date Band keratopathy, left 12/04/202212/04 Accidental fall 04/04/2022 04/04/2022 Acute low back pain 04/04/2022 04/04/19 23 Adverse effect of drug 04/04/202204/04 Closed fracture of rib 04/04/202204/04 Diverticular disease 04/04/2022 023 Elevated liver enzymes 04/04/202204/04 Fecal impaction of colon 04/04/202201/2023 Hypokalemia 04/04/2022 04/04/2022 Intractable vomiting with nausea 04/04/2022 04/04/2022 Prerenal azotemia 04/04/2022 04/04/2022 Injury of kidney 04/04/2022 04/04/2022 Retention of urine 04/04/2022 Rib pain 04/04/2022 04/04/2022 Sepsis 04/04/2022 04/04/2022 Shoulder pain 04/04/2022 04/04/2022 Unspecified urinary incontinence 04/04/2022 04/04/2022 Weakness 04/04/2022 04/04/2022 Urinary tract infection 03/25/202203/25 Abdominal pain 10/03/2021 04/04/2022 Sprain and strain of unspeci fied site of shoulder and upper arm 01/19/2008 02/11/2020 Hypothyroidism, acquired 09/11/2005 Other constipation Abdominal pain, left lower quadrant 10/22/2017 Irritable bowel syndrome 01/2023 documented as of this encounter (statuses as of 02/13/2023) [facility] History of Past illness Narrative* Problem Noted Date Diagnosed Date Resolved Date Band keratopathy, left 12/04/202212/04 Accidental fall 04/04/2022 04/04/2022 Acute low back pain 04/04/2022 04/04/19 23 Adverse effect of drug 04/04/202204/04 Closed fracture of rib 04/04/202204/04 Diverticular disease 04/04/2022 023 Elevated liver enzymes 04/04/202204/04 Fecal impaction of colon 04/04/202201/2023 Hypokalemia 04/04/2022 04/04/2022 Intractable vomiting with nausea 04/04/2022 04/04/2022 Prerenal azotemia 04/04/2022 04/04/2022 Injury of kidney 04/04/2022 04/04/2022 Retention of urine 04/04/2022 Rib pain 04/04/2022 04/04/2022 Sepsis 04/04/2022 04/04/2022 Shoulder pain 04/04/2022 04/04/2022 Unspecified urinary incontinence 04/04/2022 04/04/2022 Weakness 04/04/2022 04/04/2022 Urinary tract infection 03/25/202203/25 Abdominal pain 10/03/2021 04/04/2022 Sprain and strain of unspeci fied site of shoulder and upper arm 01/19/2008 02/11/2020 Hypothyroidism, acquired 09/11/2005 Other constipation Abdominal pain, left lower quadrant 10/22/2017 Irritable bowel syndrome 01/2023 documented as of this encounter (statuses as of 02/13/2023) [facility] History of Past illness Narrative* Problem Noted Date Diagnosed Date Resolved Date Band keratopathy, left 12/04/202212/04 Accidental fall 04/04/2022 04/04/2022 Acute low back pain 04/04/2022 04/04/19 23 Adverse effect of drug 04/04/202204/04 Closed fracture of rib 04/04/202204/04 Diverticular disease 04/04/2022 023 Elevated liver enzymes 04/04/202204/04 Fecal impaction of colon 04/04/202201/2023 Hypokalemia 04/04/2022 04/04/2022 Intractable vomiting with nausea 04/04/2022 04/04/2022 Prerenal azotemia 04/04/2022 04/04/2022 Injury of kidney 04/04/2022 04/04/2022 Retention of urine 04/04/2022 3 Rib pain 04/04/2022 04/04/2022 Sepsis 04/04/2022 04/04/2022 Shoulder pain 04/04/2022 04/04/2022 Unspecified urinary incontinence 04/04/2022 04/04/2022 Weakness 04/04/2022 04/04/2022 Urinary tract infection 03/25/202203/25 Abdominal pain 10/03/2021 04/04/2022 Sprain and strain of unspeci fied site of shoulder and upper arm 01/19/2008 02/11/2020 Hypothyroidism, acquired 09/11/2005 Other constipation 3 Abdominal pain, left lower quadrant 10/22/2017 Irritable bowel syndrome 01/2023 documented as of this encounter (statuses as of 02/18/2023) [facility]2023 NoteHNO ID: [id number] Author: Da Ocampo MD Service: ? Author Type: Physician Type: Progress Notes Filed: 11/16/2022 1:58 PM Note Text: Patient presents with: Pre-Op Exam HPI: Patient presents today for office visit for preop. Scheduled for eye surgery on 12/04. Having:REMOVE CORNEAL EPITHELIUM W/ APPLICATION OF CHELATION by Dr. Nugent. Is on a new medication from urology and not sure of name of medication. Looks like from scanned document to [employer] Is for OAB Sore on bottom is really bothering her and asking for refill of mycolog oint. Looks like was sent to pharmacy on 10/23/22. No drainage. She often sits in urine at night per daughter. Discussed adding barrier cream. Sleeps on a recliner. Discussed sleeping laying down and getting off of her backside at hs. Does not seem she is taking any BP meds except HCTZ at this time. No chest pain. No new shortness of breath. No edema. No bleeding or bruising issues. No cough or congestion. Asking about something else for anxiety or increasing venlaxine because doesn't seem to be working any more. Will try pristiq instead. Diabetes: Doesn't check sugars often. Can't really see to read anyway. Daughter can check for her. Watches her diet closely. Needs followed up on her aortic valve. Was previously ordered but did not do it. Needs rescheduled. Component Latest Ref Rng AND Units 07/23/2022 Total Cholesterol, Nonfasting <200 mg/dL 234 (H) Triglycerides, Nonfasting <150 mg/dL 46 HDL Cholesterol, Nonfasting >39 mg/dL 82 LDL Cholesterol, Nonfasting <100 mg/dL 143 (H) Non HDL Cholesterol, Nonfasting <130 mg/dL 152 (H) VLDL Cholesterol, Nonfasting <30 mg/dL 9 Total Chol/HDL Ratio, Nonfasting <5.10 mg/dL 2.85 LDL/HDL Ratio, Nonfasting <2.54 mg/dL 1.74 Hemoglobin A1C 4.3 - 5.6 % 6.9 (H) Estimated Average Glucose mg/dL 151 TSH 0.270 - 4.200 mIU/L 3.830 MEDICATIONS: Current Outpatient Medications Medication Sig multivitamin tablet Take 1 tablet by mouth once daily. vibegron (GEMTESA) 75 mg tablet Take 75 mg by mouth once daily. nystatin-triamcinolone (MYCOLOG) ointment Apply sparingly to perineum twice daily for irritation/infection. potassium chloride 20 mEq/15 mL solution take 15mL BY MOUTH EVERY DAY metFORMIN (GLUCOPHAGE) 500 mg tablet Take 1 tablet by mouth three times daily. hydroCHLOROthiazide (HYDRODIURIL, ESIDRIX) 25 mg tablet Take 1 tablet by mouth once daily. venlafaxine (EFFEXOR) 75 mg tablet Take 1 tablet by mouth twice daily. levothyroxine (SYNTHROID) 88 mcg tablet Take 1 tablet by mouth daily before breakfast. Ascorbic Acid 1,000 mg tablet Take 1,000 mg by mouth once daily. latanoprost (XALATAN) 0.005 % ophthalmic solution Use 1 Drop in both eyes once daily. nitrofurantoin monohydrate and macrocrystal (MACROBID) 100 mg capsule Take 1 tablet by mouth every 12 hours 6am/6pm. clindamycin (CLEOCIN) 150 mg capsule Take 1 capsule by mouth four times daily. amLODIPine (NORVASC) 10 mg tablet Take 1 tablet by mouth once daily. lisinopril (ZESTRIL, PRINIVIL) 20 mg tablet Take 1 tablet by mouth once daily. Methenamine Hippurate (HIPREX) 1 gram tablet Take 1 tablet by mouth twice daily. ZJDSCEGG-GMRMFHWBM-SSTAFHLC 3.5 MG/ML-10,000 UNIT/ML-0.1% EYE DROPS Use 1 Drop in both eyes twice daily. vit C,G-Ah-movvp-lutein-zeaxan (PRESERVISION AREDS-2) 250-90-40-1 mg Take 1 capsule by mouth once daily. polyethylene glycol 3350 (MIRALAX) 17 gram/dose powder Take 17 g by mouth once daily as needed for Constipation. diphenhydrAMINE (BENADRYL) 25 mg tablet Give one tablet every 6 hours as needed for itching or at bedtime as needed for insomnia aspirin, enteric coated (ASPIRIN, ENTERIC COATED) 81 mg EC tablet Take 81 mg by mouth once daily. erythromycin ophthalmic ointment (Patient not taking: Reported on 10/17/2022) Current Facility-Administered Medications Medication Dose Route Frequency perflutren lipid microspheres 1.3 mL in NaCl (PF) 0.9% 10 mL injection (DEFINITY) INTRAVENOUS DIRECTED PRN sodium chloride 0.9 % (flush) 10 mL (BD POSIFLUSH) 10 mL INTRAVENOUS DIRECTED PRN ALLERGIES: ALLERGIES Allergen Reactions Arb-Angiotensin Rec* Angioedema Atenolol Itching Augmentin [Amoxicil* Itching Bactrim [Sulfametho* Rash Cefdinir Rash Ciprofloxacin Other: See Comments ? 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 Scheduled for eye surgery on 12/04. Having:REMOVE CORNEAL EPITHELIUM W/ APPLICATION OF CHELATION by Dr. Nugent. Is on a new medication from urology and not sure of name of medication. Looks like from scanned document to [employer] Is for OAB Sore on bottom is really bothering her and asking for refill of mycolog oint. Looks like was sent to pharmacy on 10/23/22. No drainage. She often sits in urine at night per daughter. Discussed adding barrier cream. Sleeps on a recliner. Discussed sleeping laying down and getting off of her backside at hs. Does not seem she is taking any BP meds except HCTZ at this time. No chest pain. No new shortness of breath. No edema. No bleeding or bruising issues. No cough or congestion. Asking about something else for anxiety or increasing venlaxine because doesn't seem to be working any more. Will try pristiq instead. Diabetes: Doesn't check sugars often. Can't really see to read anyway. Daughter can check for her. Watches her diet closely. Needs followed up on her aortic valve. Was previously ordered but did not do it. Needs rescheduled. Component Latest Ref Rng & Units 07/23/2022 Total Cholesterol, Nonfasting <200 mg/dL 234 (H) Triglycerides, Nonfasting <150 mg/dL 46 HDL Cholesterol, Nonfasting >39 mg/dL 82 LDL Cholesterol, Nonfasting <100 mg/dL 143 (H) Non HDL Cholesterol, Nonfasting <130 mg/dL 152 (H) VLDL Cholesterol, Nonfasting <30 mg/dL 9 Total Chol/HDL Ratio, Nonfasting <5.10 mg/dL 2.85 LDL/HDL Ratio, Nonfasting <2.54 mg/dL 1.74 Hemoglobin A1C 4.3 - 5.6 % 6.9 (H) Estimated Average Glucose mg/dL 151 TSH 0.270 - 4.200 mIU/L 3.830 MEDICATIONS: Current Outpatient Medications Medication Sig multivitamin tablet Take 1 tablet by mouth once daily. vibegron (GEMTESA) 75 mg tablet Take 75 mg by mouth once daily. nystatin-triamcinolone (MYCOLOG) ointment Apply sparingly to perineum twice daily for irritation/infection. potassium chloride 20 mEq/15 mL solution take 15mL BY MOUTH EVERY DAY metFORMIN (GLUCOPHAGE) 500 mg tablet Take 1 tablet by mouth three times daily. hydroCHLOROthiazide (HYDRODIURIL, ESIDRIX) 25 mg tablet Take 1 tablet by mouth once daily. venlafaxine (EFFEXOR) 75 mg tablet Take 1 tablet by mouth twice daily. levothyroxine (SYNTHROID) 88 mcg tablet Take 1 tablet by mouth daily before breakfast. Ascorbic Acid 1,000 mg tablet Take 1,000 mg by mouth once daily. latanoprost (XALATAN) 0.005 % ophthalmic solution Use 1 Drop in both eyes once daily. nitrofurantoin monohydrate and macrocrystal (MACROBID) 100 mg capsule Take 1 tablet by mouth every 12 hours 6am/6pm. clindamycin (CLEOCIN) 150 mg capsule Take 1 capsule by mouth four times daily. amLODIPine (NORVASC) 10 mg tablet Take 1 tablet by mouth once daily. lisinopril (ZESTRIL, PRINIVIL) 20 mg tablet Take 1 tablet by mouth once daily. Methenamine Hippurate (HIPREX) 1 gram tablet Take 1 tablet by mouth twice daily. [id number]-[id number]-SECGCYJY 3.5 MG/ML-10,000 UNIT/ML-0.1% EYE DROPS Use 1 Drop in both eyes twice daily. vit C,Y-Bw-khohk-lutein-zeaxan (PRESERVISION AREDS-2) 250-90-40-1 mg Take 1 capsule by mouth once daily. polyethylene glycol 3350 (MIRALAX) 17 gram/dose powder Take 17 g by mouth once daily as needed for Constipation. diphenhydrAMINE (BENADRYL) 25 mg tablet Give one tablet every 6 hours as needed for itching or at bedtime as needed for insomnia aspirin, enteric coated (ASPIRIN, ENTERIC COATED) 81 mg EC tablet Take 81 mg by mouth once daily. erythromycin ophthalmic ointment (Patient not taking: Reported on 10/17/2022) Current Facility-Administered Medications Medication Dose Route Frequency perflutren lipid microspheres 1.3 mL in NaCl (PF) 0.9% 10 mL injection (DEFINITY) INTRAVENOUS DIRECTED PRN sodium chloride 0.9 % (flush) 10 mL (BD POSIFLUSH) 10 mL INTRAVENOUS DIRECTED PRN ALLERGIES: ALLERGIES Allergen Reactions Arb-Angiotensin Rec* Angioedema Atenolol Itching Augmentin [Amoxicil* Itching Bactrim [Sulfametho* Rash Cefdinir Rash Ciprofloxacin Other: See Comments ? 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 Small bowel obstruction (HCC) 03/07/2021 Type II or unspecified type diabetes mellitus without mention of complication, not stated as uncontrolled PAST SURGICAL HISTORY Procedure Laterality Date AQUEOUS SHUNT EXTRAOC EQUAT PLATE RSVR W/GRAFT 01-31-12 OD 10-31-05 OS Ahmed Tube ENTEROLSS FRING INTSTINAL ADHESION SPX 09/23/2020 FREEING OF BOWEL ADHESION 03/07/2021 RESECT SMALL INTEST,SINGL RESEC/ANAS 09/23/2020 RESECT SMALL INTEST,SINGL RESEC/ANAS 03/07/2021 TOTAL ABDOMINAL HYSTERECT W/WO RMVL TUBE OVARY Hysterectomy, ANGELES XCAPSL CTRC RMVL INSJ IO LENS PROSTH W/O ECP Cataract Removal FAMILY HISTORY Problem Relation Age of Onset Cancer Mother liver Glaucoma Mother Heart Father chf Glaucoma Father Diabetes Maternal Grandmother Blindness No Family History Social History Tobacco Use Smoking status: Never Smokeless tobacco: Never Vaping Use Vaping Use: Never used Substance Use Topics Alcohol use: No Drug use: No Reviewed current medications, allergies, past medical history, surgical history, family history andsocial history today. REVIEW OF SYSTEMS All other reviewed and negative other than HPI. HEALTH MAINTENANCE: Reviewed health maintenance issues today and recommended the following in detail. DILATED RETINAL EXAM- per optho URINE ALBUMIN:CREATININE RATIO due on 08/02/2022 Component Latest Ref Rng & Units 07/23/2022 Total Cholesterol, Nonfasting <200 mg/dL 234 (H) Triglycerides, Nonfasting <150 mg/dL 46 HDL Cholesterol, Nonfasting >39 mg/dL 82 LDL Cholesterol, Nonfasting <100 mg/dL 143 (H) Non HDL Cholesterol, Nonfasting <130 mg/dL 152 (H) VLDL Cholesterol, Nonfasting <30 mg/dL 9 Total Chol/HDL Ratio, Nonfasting <5.10 mg/dL 2.85 LDL/HDL Ratio, Nonfasting <2.54 mg/dL 1.74 Hemoglobin A1C 4.3 - 5.6 % 6.9 (H) Estimated Average Glucose mg/dL 151 TSH 0.270 - 4.200 mIU/L 3.830 VITALS: BP 134/62 Pulse 66 Wt 76.7 kg (169 lb) SpO2 97% BMI 28.12 kg/m Last 4 Encounter Wt Readings: Date: Wt: 04/04/2022 76.2 kg (168 lb) 08/02/2021 69.5 kg (153 lb 3.2 oz) 07/06/2021 71.3 kg (157 lb 3.2 oz) 05/05/2021 66.3 kg (146 lb 3.2 oz) PHYSICAL EXAMINATION: General appearance: Well appearing, alert, in no acute distress, well-hydrated, well nourished. Skin: Skin color, texture, turgor normal, no suspicious rashes or lesions Head: Normocephalic, no masses, lesions, tenderness or abnormalities Lungs: Lungs clear to auscultation. No wheezing, rhonchi, rales Heart: RRR. III/ murmur. Abdomen: Normal abdominal exam, Abdomen soft, non-tender. Bowel sounds normal. No masses, organomegaly Extremities: No deformities, edema, skin discoloration, clubbing or cyanosis. Good capillary refill. Has a small early area of breakdown on right buttock. Nothing on it to debride. ASSESSMENT/PLAN: 1. Decreased vision - ICD9: 369.9, ICD10: H54.7 (primary diagnosis) - should be ok. Did not get her repeat echo. Has an appt in Dec for her cardiology appt. Will get labs and echo before procedure. 2. Essential hypertension, benign - ICD9: 401.1, ICD10: I10 - Controlled - Continue current medications 3. Mixed hyperlipidemia - ICD9: 272.2, ICD10: E78.2 - Control undetermined, due for labs 4. Nonrheumatic aortic valve stenosis - ICD9: 424.1, ICD10: I35.0 - was moderate to severe. Did not get her echo yet that had previously been ordered. 5. Controlled type 2 diabetes mellitus without complication, without long-term current use of insulin (HCC) - ICD9: 250.00, ICD10: E11.9 - Controlled - Continue current medications - CBC + DIFF - HGB A1C - COMP METABOLIC PANEL - LIPID PANEL, NONFASTING 6. Hypothyroidism, unspecified type - ICD9: 244.9, ICD10: E03.9 - stable. 7. History of ovarian cancer - ICD9: V10.43, ICD10: Z85.43 - stable. 8. Dementia without behavioral disturbance, psychotic disturbance, mood disturbance, or anxiety, unspecified dementia severity, unspecified dementia type (HCC) - ICD9: 294.20, ICD10: F03.90 - stable. 9. Panic disorder without agoraphobia - ICD9: 300.01, ICD10: F41.0 - change to pristiq. Follow up in six weeks. 10. Recurrent major depressive disorder, in remission (HCC) - ICD9: 296.35, ICD10: F33.40 - as above. 11. History of elevated lipids - ICD9: V12.29, ICD10: Z86.39 - as above. 12. Coccyx wound. Bactroban cream bid prn. Change positions and stay off of buttocks Call if symptoms worsen at all or if not better in one to two weeks Da Ocampo MD documented [facility] encounterP[facility]08-08-2023 Miscellaneous Notes* Telephone Encounter - Ne Kelsey - 10/30/2022 1:08 PM EDT Patient has been scheduled for 12/04/[address] Nugent in [place] * Telephone Encounter - Aleja Castanon RN - 10/19/2022 2:25 PM EDT Patient is inquiring about setting up surgery in [place]. Aleja Castanon RN October 19, 2022 2:26 PM documented in this encounterPomerene Hospital08-02-2023 Miscellaneous Notes* Telephone Encounter - Ne Kelsey - 10/24/2022 1:47 PM EDT Called patient to schedule chelation left eye with Dr. Jerry Nugent at the [place] location. Patient states she needs to have it done, but she's not able to see to write anything down, and asked me to call her daughter, Josey to schedule it. I did offer her 11/21/22 or 12/04 22. Patient states she prefers 12/04/22, but to check with her daughter about the dates. Per Epic notes, the cell phone number of [phone] is for Josey, so I called this number but got a voicemail for Zo. I left a message for Josey to call me back and schedule the surgery on behalf of the patient. (Per Patient contact numbers, Josey's phone number is actually [phone]. I called it and left a voicemail explaining that the patient asked me to contact her to schedule hersurgery and that I also left a voicemail for Zo. Requested a call back from either one to assist with patient scheduling. documented in this encounterPomerene Hospital08-01-2023 Miscellaneous Notes* Telephone Encounter - Luisito Cuevas Ma - 10/23/2022 2:21 PM EDT Patient notified, verbalized understanding. Patient states that she is following up with Eye doc. * Telephone Encounter - Da Ocampo MD - 10/23/2022 2:09 PM EDT Make sure seeing her eye doctor. Take the synthroid on an empty stomach preferably by itself. * Telephone Encounter - Haydee Hale - 10/23/2022 1:49 PM EDT Patient called to request a refill of the cream or ointment that Dr. Ocampo prescribes for her to useto prevent infection when urine gets on her skin. She did not know the name of the medication. [employer] [facility]. 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 Also wants to know if she has to taking her levothyroxine alone or can she take other meds with it at the same time? Please advise at [phone] documented in this encounterPomerene Hospital07-26-2023 NoteHNO ID: [id number] Author: Jerry Nugent MD Service: ? Author Type: Physician Type: Progress Notes Filed: 10/17/2022 11:06 AM Note Text: Assessment and Plan 1. Band keratopathy, bilateral -dense and significant both eyes 2. Corneal pannus of right eye -in setting of incomplete blink / exposure keratopathy -also in setting of anterior uveitis 3. 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 Leija 5. Pseudophakia -stable both eyes Plan: -asking for EDTA chelation left eye -risk, benefis, and alternatives reviewed and consent obtained I have confirmed and edited as necessary the relevant ophthalmic history, ROS, and the neuro exam findings as obtained by others. I have seen and examined Cindi Frey. I have discussed the case and the management of this patient's care with the Resident/Fellow, if applicable. I also have reviewed and agree with the assessment and plan as stated above and agree with all of its relevant components. Jerry Nugent MD October 17, 2022 10:56 [facility]07-19-2023 Miscellaneous Notes* Telephone Encounter - Katharine Weathers - 10/10/2022 5:00 PM EDT Patient has been identified by name and date of : Yes Requested Prescriptions Pending Prescriptions Disp Refills metFORMIN (GLUCOPHAGE) 500 mg tablet Sig: Take 1 tablet by mouth three times daily. LISETTE-04/04/22 Labs-07/23/22 NOV-none RX INSTRUCTIONS: Patient requesting a call when RX is approved and sent to the pharmacy. Katharine Weathers documented in this encounterPomerene [facility]05-01-2023 NoteHNO ID: [id number] Author: Da Ocampo MD Service: ? Author Type: Physician Type: Progress Notes Filed: 07/23/2022 2:52 PM Note Text: Patient presents with: ER F/U HPI: Patient presents today for office visit for ER F/U. Went to [facility] ER on 07/18/22 due to generalized weakness. Dx with UTI and given Macrobid. Abx completed. Her work up was otherwise ok. Went back to [facility] on 07/22/22 due to not feeling good and wanted her urine rechecked. She was catheterized and urine was clear. Sent home. Feeling better today. Denies burning, urgency or frequency. No complaints of weakness. She is over due to see gertrudis Vieira. She does have some incontinence of stool. We discussed keep the area clean. Has been referred to cardiology for aortic stenosis. Did not follow up was indicated. She is due for labs. MEDICATIONS: Current Outpatient Medications Medication Sig nystatin-triamcinolone (MYCOLOG) ointment Apply sparingly to perineum twice daily for irritation/infection. hydroCHLOROthiazide (HYDRODIURIL, ESIDRIX) 25 mg tablet Take 1 tablet by mouth once daily. venlafaxine (EFFEXOR) 75 mg tablet Take 1 tablet by mouth twice daily. clindamycin (CLEOCIN) 150 mg capsule Take 1 capsule by mouth four times daily. levothyroxine (SYNTHROID) 88 mcg tablet Take 1 tablet by mouth daily before breakfast. amLODIPine (NORVASC) 10 mg tablet Take 1 tablet by mouth once daily. lisinopril (ZESTRIL, PRINIVIL) 20 mg tablet Take 1 tablet by mouth once daily. metFORMIN (GLUCOPHAGE) 500 mg tablet Take 500 mg by mouth three times daily. Methenamine Hippurate (HIPREX) 1 gram tablet Take 1 tablet by mouth twice daily. YHFMNCIH-XQFKLJOPF-XWXSJPVB 3.5 MG/ML-10,000 UNIT/ML-0.1% EYE DROPS Use 1 Drop in both eyes twice daily. vit C,F-Kb-fvsiw-lutein-zeaxan (PRESERVISION AREDS-2) 250-90-40-1 mg Take 1 capsule by mouth once daily. polyethylene glycol 3350 (MIRALAX) 17 gram/dose powder Take 17 g by mouth once daily as needed for Constipation. diphenhydrAMINE (BENADRYL) 25 mg tablet Give one tablet every 6 hours as needed for itching or at bedtime as needed for insomnia aspirin, enteric coated (ASPIRIN, ENTERIC COATED) 81 mg EC tablet Take 81 mg by mouth once daily. Ascorbic Acid 1,000 mg tablet Take 1,000 mg by mouth once daily. erythromycin ophthalmic ointment Current Facility-Administered Medications Medication Dose Route Frequency perflutren lipid microspheres 1.3 mL in NaCl (PF) 0.9% 10 mL injection (DEFINITY) INTRAVENOUS DIRECTED PRN sodium chloride 0.9 % (flush) 10 mL (BD POSIFLUSH) 10 mL INTRAVENOUS DIRECTED PRN ALLERGIES: ALLERGIES Allergen Reactions Arb-Angiotensin Rec* Angioedema Atenolol Itching Augmentin [Amoxicil* Itching Bactrim [Sulfametho* Rash Cefdinir Rash Ciprofloxacin Other: See Comments ? 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 Small bowel obstruction (HCC) 03/07/2021 Type II or unspecified type diabetes mellitus without mention of complication, not stated as uncontrolled PAST SURGICAL HISTORY Procedure Laterality Date AQUEOUS SHUNT EXTRAOC EQUAT PLATE RSVR W/GRAFT 01-31-12 OD 10-31-05 OS Ahmed Tube ENTEROLSS FRING INTSTINAL ADHESION SPX 09/23/2020 FREEING OF BOWEL ADHESION 03/07/2021 RESECT SMALL INTEST,SINGL RESEC/ANAS 09/23/2020 RESECT SMALL INTEST,SINGL RESEC/ANAS 03/07/2021 TOTAL ABDOMINAL HYSTERECT W/WO RMVL TUBE OVARY Hysterectomy, ANGELES XCAPSL CTRC RMVL INSJ IO LENS PROSTH W/O ECP Cataract Removal FAMILY HISTORY Problem Relation Age of Onset Cancer Mother liver Glaucoma Mother Heart Father chf Glaucoma Father Diabetes Maternal Grandmother Blindness No Family History Social History Tobacco Use Smoking status: Never Smokeless tobacco: Never Vaping Use Vaping Use: Never used Substance Use Topics Alcohol use: No Drug use: No Reviewed current medications, allergies, past medical history, surgical history, family history and social history today. REVIEW OF SYSTEMS All other reviewed and negative other than HPI. HEALTH MAINTENANCE: Reviewed health maintenance issues today and recommended the following in detail. DILATED RETINAL EXAM due on 01/18/2022- has seen her eye VITALS: BP 144/66 Pulse 62 Temp 36.4 ?C (97.6 ?F) SpO2 96% Last 4 Encounter Wt Readings: Date: Wt: 04/04/2022 76.2 kg (168 (more content not included)...[facility] 07-23-[facility] History of Present illness Narrative* Da Ocampo MD - 07/23/2022 2:20 PM EDT Patient presents with: ER F/U HPI: Patient presents today for office visit for ER F/U. Went to [facility] ER on 07/18/22 due to generalized weakness. Dx with UTI and given Macrobid. Abx completed. Her work up was otherwise ok. Went back to [facility] on 07/22/22 due to not feeling good and wanted her urine rechecked. She was catheterized and urine was clear. Sent home. Feeling better today. Denies burning, urgency or frequency. No complaints of weakness. She is over due to see gertrudis Vieira. She does have some incontinence of stool. We discussed keep the area clean. Has been referred to cardiology for aortic stenosis. Did not follow up was indicated. She is due for labs. MEDICATIONS: Current Outpatient Medications Medication Sig nystatin-triamcinolone (MYCOLOG) ointment Apply sparingly to perineum twice daily for irritation/infection. hydroCHLOROthiazide (HYDRODIURIL, ESIDRIX) 25 mg tablet Take 1 tablet by mouth once daily. venlafaxine (EFFEXOR) 75 mg tablet Take 1 tablet by mouth twice daily. clindamycin (CLEOCIN) 150 mg capsule Take 1 capsule by mouth four times daily. levothyroxine (SYNTHROID) 88 mcg tablet Take 1 tablet by mouth daily before breakfast. amLODIPine (NORVASC) 10 mg tablet Take 1 tablet by mouth once daily. lisinopril (ZESTRIL, PRINIVIL) 20 mg tablet Take 1 tablet by mouth once daily. metFORMIN (GLUCOPHAGE) 500 mg tablet Take 500 mg by mouth three times daily. Methenamine Hippurate (HIPREX) 1 gram tablet Take 1 tablet by mouth twice daily. HVOUMPLK-ZTHDIVPZW-PJSTHVAZ 3.5 MG/ML-10,000 UNIT/ML-0.1% EYE DROPS Use 1 Drop in both eyes twice daily. vit C,N-Ij-qjkgd-lutein-zeaxan (PRESERVISION AREDS-2) 250-90-40-1 mg Take 1 capsule by mouth once daily. polyethylene glycol 3350 (MIRALAX) 17 gram/dose powder Take 17 g by mouth once daily as needed for Constipation. diphenhydrAMINE (BENADRYL) 25 mg tablet Give one tablet every 6 hours as needed for itching or at bedtime as needed for insomnia aspirin, enteric coated (ASPIRIN, ENTERIC COATED) 81 mg EC tablet Take 81 mg by mouth once daily. Ascorbic Acid 1,000 mg tablet Take 1,000 mg by mouth once daily. erythromycin ophthalmic ointment Current Facility-Administered Medications Medication Dose Route Frequency perflutren lipid microspheres 1.3 mL in NaCl (PF) 0.9% 10 mL injection (DEFINITY) INTRAVENOUS DIRECTED PRN sodium chloride 0.9 % (flush) 10 mL (BD POSIFLUSH) 10 mL INTRAVENOUS DIRECTED PRN ALLERGIES: ALLERGIES Allergen Reactions Arb-Angiotensin Rec* Angioedema Atenolol Itching Augmentin [Amoxicil* Itching Bactrim [Sulfametho* Rash Cefdinir Rash Ciprofloxacin Other: See Comments ? 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 Small bowel obstruction (HCC) 03/07/2021 Type II or unspecified type diabetes mellitus without mention of complication, not stated as uncontrolled PAST SURGICAL HISTORY Procedure Laterality Date AQUEOUS SHUNT EXTRAOC EQUAT PLATE RSVR W/GRAFT 01-31-12 OD 10-31-05 OS Ahmed Tube ENTEROLSS FRING INTSTINAL ADHESION SPX 09/23/2020 FREEING OF BOWEL ADHESION 03/07/2021 RESECT SMALL INTEST,SINGL RESEC/ANAS 09/23/2020 RESECT SMALL INTEST,SINGL RESEC/ANAS 03/07/2021 TOTAL ABDOMINAL HYSTERECT W/WO RMVL TUBE OVARY Hysterectomy, ANGELES XCAPSL CTRC RMVL INSJ IO LENS PROSTH W/O ECP Cataract Removal FAMILY HISTORY Problem Relation Age of Onset Cancer Mother liver Glaucoma Mother Heart Father chf Glaucoma Father Diabetes Maternal Grandmother Blindness No Family History Social History Tobacco Use Smoking status: Never Smokeless tobacco: Never Vaping Use Vaping Use: Never used Substance Use Topics Alcohol use: No Drug use: No Reviewed current medications, allergies, past medical history, surgical history, family history andsocial history today. REVIEW OF SYSTEMS All other reviewed and negative other than HPI. HEALTH MAINTENANCE: Reviewed health maintenance issues today and recommended the following in detail. DILATED RETINAL EXAM due on 01/18/2022- has seen her eye dr. ESPINAL: BP 144/66 Pulse 62 Temp 36.4 C (97.6 F) SpO2 96% Last 4 Encounter Wt Readings: Date: Wt: 04/04/2022 76.2 kg (168 lb) 08/02/2021 69.5 kg (153 lb 3.2 oz) 07/06/2021 71.3 kg (157 lb 3.2 oz) 05/05/2021 66.3 kg (146 lb 3.2 oz) PHYSICAL EXAMINATION: General appearance: Well appearing, alert, in no acute distress, well-hydrated, well nourished. Skin: Skin color, texture, turgor normal, no suspicious rashes or lesions Head: Normocephalic, no masses, lesions, tenderness or abnormalities Lungs: Lungs clear to auscultation. No wheezing, rhonchi, rales Heart: RRR, murmur persists. Abdomen: Normal abdominal exam, Abdomen soft, non-tender. Bowel sounds normal. No masses, organomegaly Extremities: No deformities, edema, skin discoloration, clubbing or cyanosis. Good capillary refill. ASSESSMENT/PLAN: 1. Recurrent UTI (urinary tract infection) - ICD9: 599.0, ICD10: N39.0 (primary diagnosis) - see her urogyn - CONSULT TO UROLOGY 2. Nonrheumatic aortic valve stenosis - ICD9: 424.1, ICD10: I35.0 - check echo, did not see cardiology as recommended. - ECHO - PERFLUTREN LIPID MICROSPHERES 1.1 MG/ML INJECTION IN NS 10 ML - SODIUM CHLORIDE 0.9 % (FLUSH) INJECTION SYRINGE 3. Essential hypertension, benign - ICD9: 401.1, ICD10: I10 - fair control - ok for her agei. - Goal of BP <130/80 4. Mixed hyperlipidemia - ICD9: 272.2, ICD10: E78.2 - to be determined upon return of lab results - LIPID PANEL, NONFASTING 5. Controlled type 2 diabetes mellitus without complication, without long-term current use of insulin (HCC) - ICD9: 250.00, ICD10: E11.9 - Controlled - Continue current medications - HGB A1C 6. Hypothyroidism, unspecified type - ICD9: 244.9, ICD10: E03.9 - TSH BLD Da Ocampo MD documented in [facility] encounterP[facility]03-[facility]23 Miscellaneous Notes* Telephone Encounter - Mary Jordan RN - 05/30/2022 4:45 PM EST Patient has been identified by name and date of : Yes, Mray Jordan RN Date 05/30/2022 Time 4:46 pm Patient phones for refill(s): Requested Prescriptions Pending Prescriptions Disp Refills nystatin-triamcinolone (MYCOLOG) ointment 30 g 1 Sig: Apply sparingly to perineum twice daily for irritation/infection. Patient requests refill for exacerbation of excoriation/irritation to buttocks. Date of last office visit with pcp: 04/04/2022 Future appt: none Last 2 Encounter Wt Readings: Date: Wt: 04/04/2022 76.2 kg (168 lb) 08/02/2021 69.5 kg (153 lb 3.2 oz) Previous labs/tests for medication: Blood Pressure: BUN (mg/dL) Date Value 08/02/2021 26 05/04/2020 22 Sodium (mmol/L) Date Value 08/02/2021 138 05/04/2020 138 Last 1 Encounter BP Readings: Date: BP: 04/04/2022 142/70 Liver Function: ALT (U/L) Date Value 08/02/2021 13 09/30/2019 11 AST (U/L) Date Value 08/02/2021 12 09/30/2019 16 Please advise. Thank you. Mary Jordan RN documented in this encounterP[facility]01-26-[facility]23 Miscellaneous Notes* Telephone Encounter - Macarena Reyes - 04/19/2022 3:27 PM EST Patient has been identified by name and date of : Yes Requested Prescriptions Pending Prescriptions Disp Refills hydroCHLOROthiazide (HYDRODIURIL, ESIDRIX) 25 mg tablet 90 tablet 3 Sig: Take 1 tablet by mouth once daily. RX INSTRUCTIONS: Patient aware RX will be sent to pharmacy. No need to notify patient. Macarena Reyes documented in this encounterP[facility]01-16-2023 Miscellaneous Notes* Telephone Encounter - Charlotte Shetty Ma - 04/09/2022 9:17 AM EST Pt notified. Charlotte Shetty Ma * Telephone Encounter - Da Ocampo MD - 04/09/2022 8:34 AM EST Take every six hours roughly. Can take right before bed and when she gets up. * Telephone Encounter - Shawna Looney RN - 04/09/2022 8:20 AM EST Patient calls and is confused about the Clindamycin that she is supposed to be taking. Pharmacy told patient that she needed to take this every 6 hours. Patient states that she is unable to do this because she sleeps through the night and that she has to take levothyroxine in the morning by itself.Patient asking how she should be taking medication? Please review and advise, Shawna Looney RN documented in this encounterPome[facility]01-16-2023 Miscellaneous Notes* Telephone Encounter - Tonya Alarcon Pss - 04/09/2022 8:13 AM EST Patient has been identified by name and date of : Yes Requested Prescriptions Pending Prescriptions Disp Refills venlafaxine (EFFEXOR) 75 mg tablet 180 tablet 1 Sig: Take 1 tablet by mouth twice daily. RX INSTRUCTIONS: Patient aware RX will be sent to pharmacy. No need to notify patient. Tonya Alarcon Pss documented in this encounterPomerene Hospital01-11-2023 NoteHNO ID: [id number] Author: Da Ocampo MD Service: ? Author Type: Physician Type: Progress Notes Filed: 04/04/2022 7:21 PM Note Text: Patient presents with: 6 Month Exam Hospital F/U HPI: Patient presents today for office visit for 6 month follow up. Was recently in hospital. Admission on 03/23/22. Discharged 03/25/2022 Abdominal pain. Small bowel x-ray showed no evidence of small bowel obstruction. Abdominal x-ray showed non-obstructive bowel gas pattern. Dx with UTI. Started on Cefpodoxime 100 mg twice daily. No urinary issues. Denies current abdominal pain. Seen by surgery. Stomach is fine now. No urinary issues. Getting Home health. Does at home PT for strengthening of legs. HTN: Does not monitor BP at home No headaches or dizziness Denies chest pain Shortness of breath with exertion Edema in left leg with intermittent redness and warmth X3+ wks. Was marked. Apparently no one did a duplex. Is too late DM: Not monitoring sugars at home. Testing machine malfunctions. Watching diet but will have a cookie now and then No foot lesions or pain. Some numbness in feet. More so in left ankle. Refers to feeling like there is a rubber band around it. Thyroid: No hair of skin changes More fatigued Psych: Not noticing a difference with the Effexor. Still has lots of anxiety. Refers to that just being her normal self, being anxious. Is at her baseline. Was referred to cardiology previously for her aortic stenosis. They did not set up a follow up. MEDICATIONS: Current Outpatient Medications Medication Sig hydroCHLOROthiazide (HYDRODIURIL, ESIDRIX) 25 mg tablet Take 1 tablet by mouth once daily. levothyroxine (SYNTHROID) 88 mcg tablet Take 1 tablet by mouth daily before breakfast. venlafaxine (EFFEXOR) 75 mg tablet Take 1 tablet by mouth twice daily. amLODIPine (NORVASC) 10 mg tablet Take 1 tablet by mouth once daily. lisinopril (ZESTRIL, PRINIVIL) 20 mg tablet Take 1 tablet by mouth once daily. metFORMIN (GLUCOPHAGE) 500 mg tablet Take 500 mg by mouth three times daily. Methenamine Hippurate (HIPREX) 1 gram tablet Take 1 tablet by mouth twice daily. NLGOYIOE-XXUTWYHPP-IGXGZNRP 3.5 MG/ML-10,000 UNIT/ML-0.1% EYE DROPS Use 1 Drop in both eyes twice daily. vit C,E-Ie-toobp-lutein-zeaxan (PRESERVISION AREDS-2) 250-90-40-1 mg Take 1 capsule by mouth once daily. polyethylene glycol 3350 (MIRALAX) 17 gram/dose powder Take 17 g by mouth once daily as needed for Constipation. diphenhydrAMINE (BENADRYL) 25 mg tablet Give one tablet every 6 hours as needed for itching or at bedtime as needed for insomnia aspirin, enteric coated (ASPIRIN, ENTERIC COATED) 81 mg EC tablet Take 81 mg by mouth once daily. Ascorbic Acid (VITAMIN C) 1,000 mg tablet Take 1,000 mg by mouth once daily. erythromycin ophthalmic ointment Current Facility-Administered Medications Medication Dose Route Frequency perflutren lipid microspheres 1.3 mL in NaCl (PF) 0.9% 10 mL injection (DEFINITY) INTRAVENOUS DIRECTED PRN sodium chloride 0.9 % (flush) 10 mL (BD POSIFLUSH) 10 mL INTRAVENOUS DIRECTED PRN ALLERGIES: ALLERGIES Allergen Reactions Arb-Angiotensin Rec* Angioedema Atenolol Itching Augmentin [Amoxicil* Itching Bactrim [Sulfametho* Rash Cefdinir Rash Ciprofloxacin Other: See Comments ? 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 Small bowel obstruction (HCC) 03/07/2021 Type II or unspecified type diabetes mellitus without mention of complication, not stated as uncontrolled PAST SURGICAL HISTORY Procedure Laterality Date AQUEOUS SHUNT EXTRAOC EQUAT PLATE RSVR W/GRAFT 01-31-12 OD 10-31-05 OS Ahmed Tube ENTEROLSS FRING INTSTINAL ADHESION SPX 09/23/2020 FREEING OF BOWEL ADHESION 03/07/2021 RESECT SMALL INTEST,SINGL RESEC/ANAS 09/23/2020 RESECT SMALL INTEST,SINGL RESEC/ANAS 03/07/2021 TOTAL ABDOMINAL HYSTERECT W/WO RMVL TUBE OVARY Hysterectomy, ANGELES XCAPSL CTRC RMVL INSJ IO LENS PROSTH W/O ECP Cataract Removal FAMILY HISTORY Problem Relation Age of Onset Cancer Mother liver Glaucoma Mother Heart Father chf Glaucoma Father Diabetes Maternal Grandmother Blindness No Family History Social History Tobacco Use Smoking status: Never Smokeless tobacco: Never Vaping Use Vaping Use: Never used Substance Use Topics Alcohol use: N (more content not included)...[facility] 04-04-2022 History of Present illness Narrative* Da Ocampo MD - 04/04/2022 3:26 PM EST Patient presents with: 6 Month Exam Hospital F/U HPI: Patient presents today for office visit for 6 month follow up. Was recently in hospital. Admission on 03/23/22. Discharged 03/25/2022 Abdominal pain. Small bowel x-ray showed no evidence of small bowel obstruction. Abdominal x-ray showed non-obstructive bowel gas pattern. Dx with UTI. Started on Cefpodoxime 100 mg twice daily. No urinary issues. Denies current abdominalpain. Seen by surgery. Stomach is fine now. No urinary issues. Getting Home health. Does at home PT for strengthening of legs. HTN: Does not monitor BP at home No headaches or dizziness Denies chest pain Shortness of breath with exertion Edema in left leg with intermittent redness and warmth X3+ wks. Was marked. Apparently no one did aduplex. Is too late DM: Not monitoring sugars at home. Testing machine malfunctions. Watching diet but will have a cookie now and then No foot lesions or pain. Some numbness in feet. More so in left ankle. Refers to feeling like there is a rubber band around it. Thyroid: No hair of skin changes More fatigued Psych: Not noticing a difference with the Effexor. Still has lots of anxiety. Refers to that just being her normal self, being anxious. Is at her baseline. Was referred to cardiology previously for her aortic stenosis. They did not set up a follow up. MEDICATIONS: Current Outpatient Medications Medication Sig hydroCHLOROthiazide (HYDRODIURIL, ESIDRIX) 25 mg tablet Take 1 tablet by mouth once daily. levothyroxine (SYNTHROID) 88 mcg tablet Take 1 tablet by mouth daily before breakfast. venlafaxine (EFFEXOR) 75 mg tablet Take 1 tablet by mouth twice daily. amLODIPine (NORVASC) 10 mg tablet Take 1 tablet by mouth once daily. lisinopril (ZESTRIL, PRINIVIL) 20 mg tablet Take 1 tablet by mouth once daily. metFORMIN (GLUCOPHAGE) 500 mg tablet Take 500 mg by mouth three times daily. Methenamine Hippurate (HIPREX) 1 gram tablet Take 1 tablet by mouth twice daily. NPQMWXKU-KMPVRXINN-GXBBLXPD 3.5 MG/ML-10,000 UNIT/ML-0.1% EYE DROPS Use 1 Drop in both eyes twice daily. vit C,N-Vr-zagxv-lutein-zeaxan (PRESERVISION AREDS-2) 250-90-40-1 mg Take 1 capsule by mouth once daily. polyethylene glycol 3350 (MIRALAX) 17 gram/dose powder Take 17 g by mouth once daily as needed for Constipation. diphenhydrAMINE (BENADRYL) 25 mg tablet Give one tablet every 6 hours as needed for itching or at bedtime as needed for insomnia aspirin, enteric coated (ASPIRIN, ENTERIC COATED) 81 mg EC tablet Take 81 mg by mouth once daily. Ascorbic Acid (VITAMIN C) 1,000 mg tablet Take 1,000 mg by mouth once daily. erythromycin ophthalmic ointment Current Facility-Administered Medications Medication Dose Route Frequency perflutren lipid microspheres 1.3 mL in NaCl (PF) 0.9% 10 mL injection (DEFINITY) INTRAVENOUS DIRECTED PRN sodium chloride 0.9 % (flush) 10 mL (BD POSIFLUSH) 10 mL INTRAVENOUS DIRECTED PRN ALLERGIES: ALLERGIES Allergen Reactions Arb-Angiotensin Rec* Angioedema Atenolol Itching Augmentin [Amoxicil* Itching Bactrim [Sulfametho* Rash Cefdinir Rash Ciprofloxacin Other: See Comments ? 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 Small bowel obstruction (HCC) 03/07/2021 Type II or unspecified type diabetes mellitus without mention of complication, not stated as uncontrolled PAST SURGICAL HISTORY Procedure Laterality Date AQUEOUS SHUNT EXTRAOC EQUAT PLATE RSVR W/GRAFT 01-31-12 OD 10-31-05 OS Ahmed Tube ENTEROLSS FRING INTSTINAL ADHESION SPX 09/23/2020 FREEING OF BOWEL ADHESION 03/07/2021 RESECT SMALL INTEST,SINGL RESEC/ANAS 09/23/2020 RESECT SMALL INTEST,SINGL RESEC/ANAS 03/07/2021 TOTAL ABDOMINAL HYSTERECT W/WO RMVL TUBE OVARY Hysterectomy, ANGELES XCAPSL CTRC RMVL INSJ IO LENS PROSTH W/O ECP Cataract Removal FAMILY HISTORY Problem Relation Age of Onset Cancer Mother liver Glaucoma Mother Heart Father chf Glaucoma Father Diabetes Maternal Grandmother Blindness No Family History Social History Tobacco Use Smoking status: Never Smokeless tobacco: Never Vaping Use Vaping Use: Never used Substance Use Topics Alcohol use: No Drug use: No Reviewed current medications, allergies, past medical history, surgical history, family history andsocial history today. REVIEW OF SYSTEMS All other reviewed and negative other than HPI. HEALTH MAINTENANCE: Reviewed health maintenance issues today and recommended the following in detail. VITALS: BP 142/70 Pulse 64 Ht 165.1 cm (5' 5 ) Wt 76.2 kg (168 lb) SpO2 95% BMI 27.96 kg/m Last 4 Encounter Wt Readings: Date: Wt: 08/02/2021 69.5 kg (153 lb 3.2 oz) 07/06/2021 71.3 kg (157 lb 3.2 oz) 05/05/2021 66.3 kg (146 lb 3.2 oz) 12/09/2020 68.5 kg (151 lb) PHYSICAL EXAMINATION: General appearance: Well appearing, alert, in no acute distress, well-hydrated, well nourished. andaccompanied by her daughter. Mentally at baseline. Neck: Supple, no adenopathy; thyroid symmetric, normal size, no bruits Lungs: Lungs clear to auscultation. No wheezing, rhonchi, rales Heart: RRR muirmur unchanged, gallop, or rubs. No ectopy Abdomen: Normal abdominal exam, Abdomen soft, non-tender. Bowel sounds normal. No masses, organomegaly Extremities: increased edema of left leg, redness to mid [place]. Slightly warm. No calf tenderness. No palpable cords. Musculoskeletal: No joint swelling, deformity, or tenderness ASSESSMENT/PLAN: 1. Essential hypertension, benign - ICD9: 401.1, ICD10: I10 (primary diagnosis) - good control - Continue current medication(s) - bp acceptable for her age. 2. Mixed hyperlipidemia - ICD9: 272.2, ICD10: E78.2 - watch diet. 3. Mitral valve insufficiency, unspecified etiology - ICD9: 424.0, ICD10: I34.0 4. Nonrheumatic aortic valve stenosis - ICD9: 424.1, ICD10: I35.0 Reinforced need to see cardiology - CONSULT TO CARDIOLOGY 5. History of resection of small bowel - ICD9: V15.29, ICD10: Z90.49 6. Controlled type 2 diabetes mellitus without complication, without long-term current use of insulin (HCC) - ICD9: 250.00, ICD10: E11.9 Controlled. - Continue current medications - HGB A1C 7. Hypothyroidism, unspecified type - ICD9: 244.9, ICD10: E03.9 - stable, 8. History of ovarian cancer - ICD9: V10.43, ICD10: Z85.[address] Batista, urogyn 9. Recurrent major depressive disorder, in remission (HCC) - ICD9: 296.35, ICD10: F33.40 - stable . 10. Dementia without behavioral disturbance, psychotic disturbance, mood disturbance, or anxiety, unspecified dementia severity, unspecified dementia type (HCC) - ICD9: 294.20, ICD10: F03.90 Stable. 11. Edema, unspecified type - ICD9: 782.3, ICD10: R60.9 -recommended duplex. Cannot get one this evening unless goes to er. Declines. Get vilma. Start cleocn and labs. - US LEG VEIN DVT UNL VAS LAB 12. Localized swelling, mass and lump, left lower limb - ICD9: 782.2, ICD10: R22.42 Red flags for re-assessment reviewed with patient in detail. - US LEG VEIN DVT UNL VAS LAB - CBC + DIFF - SED RATE WESTERGREN 13. Cellulitis of skin - ICD9: 682.9, ICD10: L03.90 - CLINDAMYCIN HCL 150 MG CAPSULE 14. Hypothyroidism, acquired - ICD9: 244.9, ICD10: E03.9 - LEVOTHYROXINE 88 MCG TABLET Da Ocampo MD documented in this encounterP[facility]01-11-2023 History of Past illness Narrative* Problem Noted Date Resolved Date Accidental fall 04/04/2022 04/04/2022 Acute low back pain 04/04/2022 04/04/2022 Adverse effect of drug 04/04/2022 3 Closed fracture of rib 04/04/2022 3 Diverticular disease 04/04/2022 04/04/2022 Elevated liver enzymes 04/04/2022 3 Fecal impaction of colon 04/04/2022 023 Hypokalemia 04/04/2022 04/04/2022 Intractable vomiting with nausea 04/04/2022 04/04/2022 Prerenal azotemia 04/04/2022 04/04/2022 Injury of kidney 04/04/2022 04/04/2022 Retention of urine 04/04/2022 04/04/2022 Rib pain 04/04/2022 04/04/2022 Sepsis 04/04/2022 04/04/2022 Shoulder pain 04/04/2022 04/04/2022 Unspecified urinary incontinence 04/04/2022 04/04/2022 Weakness 04/04/2022 04/04/2022 Urinary tract infection 03/25/2022 04/04/19 23 Abdominal pain 10/03/2021 04/04/2022 Sprain and strain of unspeci fied site of shoulder and upper arm 01/19/2008 02/11/2020 Hypothyroidism, acquired 09/11/2005 020 Other constipation 04/04/2022 Abdominal pain, left lower quadrant 10/22/2017 Irritable bowel syndrome 023 documented as of this encounter (statuses as of 04/05/2022) [facility] of Past illness Narrative* Problem Noted Date Resolved Date Accidental fall 04/04/2022 04/04/2022 Acute low back pain 04/04/2022 04/04/2022 Adverse effect of drug 04/04/2022 3 Closed fracture of rib 04/04/2022 3 Diverticular disease 04/04/2022 04/04/2022 Elevated liver enzymes 04/04/2022 3 Fecal impaction of colon 04/04/2022 023 Hypokalemia 04/04/2022 04/04/2022 Intractable vomiting with nausea 04/04/2022 04/04/2022 Prerenal azotemia 04/04/2022 04/04/2022 Injury of kidney 04/04/2022 04/04/2022 Retention of urine 04/04/2022 04/04/2022 Rib pain 04/04/2022 04/04/2022 Sepsis 04/04/2022 04/04/2022 Shoulder pain 04/04/2022 04/04/2022 Unspecified urinary incontinence 04/04/2022 04/04/2022 Weakness 04/04/2022 04/04/2022 Urinary tract infection 03/25/2022 04/04/19 23 Abdominal pain 10/03/2021 04/04/2022 Sprain and strain of unspeci fied site of shoulder and upper arm 01/19/2008 02/11/2020 Hypothyroidism, acquired 09/11/2005 020 Other constipation 04/04/2022 Abdominal pain, left lower quadrant 10/22/2017 Irritable bowel syndrome 023 documented as of this encounter (statuses as of 04/09/2022) [facility] of Past illness Narrative* Problem Noted Date Resolved Date Accidental fall 04/04/2022 04/04/2022 Acute low back pain 04/04/2022 04/04/2022 Adverse effect of drug 04/04/2022 3 Closed fracture of rib 04/04/2022 3 Diverticular disease 04/04/2022 04/04/2022 Elevated liver enzymes 04/04/2022 3 Fecal impaction of colon 04/04/2022 023 Hypokalemia 04/04/2022 04/04/2022 Intractable vomiting with nausea 04/04/2022 04/04/2022 Prerenal azotemia 04/04/2022 04/04/2022 Injury of kidney 04/04/2022 04/04/2022 Retention of urine 04/04/2022 04/04/2022 Rib pain 04/04/2022 04/04/2022 Sepsis 04/04/2022 04/04/2022 Shoulder pain 04/04/2022 04/04/2022 Unspecified urinary incontinence 04/04/2022 04/04/2022 Weakness 04/04/2022 04/04/2022 Urinary tract infection 03/25/2022 04/04/19 Abdominal pain 10/03/2021 04/04/2022 Sprain and strain of unspeci fied site of shoulder and upper arm 01/19/2008 02/11/2020 Hypothyroidism, acquired 09/11/2005 020 Other constipation 04/04/2022 Abdominal pain, left lower quadrant 10/22/2017 Irritable bowel syndrome 023 documented as of this encounter (statuses as of 04/09/2022) [facility] of Past illness Narrative* Problem Noted Date Resolved Date Accidental fall 04/04/2022 04/04/2022 Acute low back pain 04/04/2022 04/04/2022 Adverse effect of drug 04/04/2022 3 Closed fracture of rib 04/04/2022 3 Diverticular disease 04/04/2022 04/04/2022 Elevated liver enzymes 04/04/2022 3 Fecal impaction of colon 04/04/2022 023 Hypokalemia 04/04/2022 04/04/2022 Intractable vomiting with nausea 04/04/2022 04/04/2022 Prerenal azotemia 04/04/2022 04/04/2022 Injury of kidney 04/04/2022 04/04/2022 Retention of urine 04/04/2022 04/04/2022 Rib pain 04/04/2022 04/04/2022 Sepsis 04/04/2022 04/04/2022 Shoulder pain 04/04/2022 04/04/2022 Unspecified urinary incontinence 04/04/2022 04/04/2022 Weakness 04/04/2022 04/04/2022 Urinary tract infection 03/25/2022 04/04/19 23 Abdominal pain 10/03/2021 04/04/2022 Sprain and strain of unspeci fied site of shoulder and upper arm 01/19/2008 02/11/2020 Hypothyroidism, acquired 09/11/2005 020 Other constipation 04/04/2022 Abdominal pain, left lower quadrant 10/22/2017 Irritable bowel syndrome 023 documented as of this encounter (statuses as of 04/19/2022) [facility] of [facility] illness Narrative* Problem Noted Date Resolved Date Accidental fall 04/04/2022 04/04/2022 Acute low back pain 04/04/2022 04/04/2022 Adverse effect of drug 04/04/2022 3 Closed fracture of rib 04/04/2022 3 Diverticular disease 04/04/2022 04/04/2022 Elevated liver enzymes 04/04/2022 3 Fecal impaction of colon 04/04/2022 023 Hypokalemia 04/04/2022 04/04/2022 Intractable vomiting with nausea 04/04/2022 04/04/2022 Prerenal azotemia 04/04/2022 04/04/2022 Injury of kidney 04/04/2022 04/04/2022 Retention of urine 04/04/2022 04/04/2022 Rib pain 04/04/2022 04/04/2022 Sepsis 04/04/2022 04/04/2022 Shoulder pain 04/04/2022 04/04/2022 Unspecified urinary incontinence 04/04/2022 04/04/2022 Weakness 04/04/2022 04/04/2022 Urinary tract infection 03/25/2022 04/04/19 23 Abdominal pain 10/03/2021 04/04/2022 Sprain and strain of unspeci fied site of shoulder and upper arm 01/19/2008 02/11/2020 Hypothyroidism, acquired 09/11/2005 020 Other constipation 04/04/2022 Abdominal pain, left lower quadrant 10/22/2017 Irritable bowel syndrome 023 documented as of this encounter (statuses as of 05/31/2022) [facility] of Past illness Narrative* Problem Noted Date Resolved Date Accidental fall 04/04/2022 04/04/2022 Acute low back pain 04/04/2022 04/04/2022 Adverse effect of drug 04/04/2022 3 Closed fracture of rib 04/04/2022 3 Diverticular disease 04/04/2022 04/04/2022 Elevated liver enzymes 04/04/2022 3 Fecal impaction of colon 04/04/2022 023 Hypokalemia 04/04/2022 04/04/2022 Intractable vomiting with nausea 04/04/2022 04/04/2022 Prerenal azotemia 04/04/2022 04/04/2022 Injury of kidney 04/04/2022 04/04/2022 Retention of urine 04/04/2022 04/04/2022 Rib pain 04/04/2022 04/04/2022 Sepsis 04/04/2022 04/04/2022 Shoulder pain 04/04/2022 04/04/2022 Unspecified urinary incontinence 04/04/2022 04/04/2022 Weakness 04/04/2022 04/04/2022 Urinary tract infection 03/25/2022 04/04/19 23 Abdominal pain 10/03/2021 04/04/2022 Sprain and strain of unspeci fied site of shoulder and upper arm 01/19/2008 02/11/2020 Hypothyroidism, acquired 09/11/2005 020 Other constipation 04/04/2022 Abdominal pain, left lower quadrant 10/22/2017 Irritable bowel syndrome 023 documented as of this encounter (statuses as of 07/24/2022) [facility] History of Past illness Narrative* Problem Noted Date Diagnosed Date Resolved Date Accidental fall 04/04/2022 04/04/2022 Acute low back pain 04/04/2022 04/04/19 23 Adverse effect of drug 04/04/202204/04 Closed fracture of rib 04/04/202204/04 Diverticular disease 04/04/2022 023 Elevated liver enzymes 04/04/202204/04 Fecal impaction of colon 04/04/202201/2023 Hypokalemia 04/04/2022 04/04/2022 Intractable vomiting with nausea 04/04/2022 04/04/2022 Prerenal azotemia 04/04/2022 04/04/2022 Injury of kidney 04/04/2022 04/04/2022 Retention of urine 04/04/2022 Rib pain 04/04/2022 04/04/2022 Sepsis 04/04/2022 04/04/2022 Shoulder pain 04/04/2022 04/04/2022 Unspecified urinary incontinence 04/04/2022 04/04/2022 Weakness 04/04/2022 04/04/2022 Urinary tract infection 03/25/202203/25 Abdominal pain 10/03/2021 04/04/2022 Sprain and strain of unspeci fied site of shoulder and upper arm 01/19/2008 02/11/2020 Hypothyroidism, acquired 09/11/2005 Other constipation Abdominal pain, left lower quadrant 10/22/2017 Irritable bowel syndrome 01/2023 documented as of this encounter (statuses as of 10/11/2022) [facility] History of Past illness Narrative* Problem Noted Date Diagnosed Date Resolved Date Accidental fall 04/04/2022 04/04/2022 Acute low back pain 04/04/2022 04/04/19 23 Adverse effect of drug 04/04/202204/04 Closed fracture of rib 04/04/202204/04 Diverticular disease 04/04/2022 023 Elevated liver enzymes 04/04/202204/04 Fecal impaction of colon 04/04/202201/2023 Hypokalemia 04/04/2022 04/04/2022 Intractable vomiting with nausea 04/04/2022 04/04/2022 Prerenal azotemia 04/04/2022 04/04/2022 Injury of kidney 04/04/2022 04/04/2022 Retention of urine 04/04/2022 Rib pain 04/04/2022 04/04/2022 Sepsis 04/04/2022 04/04/2022 Shoulder pain 04/04/2022 04/04/2022 Unspecified urinary incontinence 04/04/2022 04/04/2022 Weakness 04/04/2022 04/04/2022 Urinary tract infection 03/25/202203/25 Abdominal pain 10/03/2021 04/04/2022 Sprain and strain of unspeci fied site of shoulder and upper arm 01/19/2008 02/11/2020 Hypothyroidism, acquired 09/11/2005 Other constipation Abdominal pain, left lower quadrant 10/22/2017 Irritable bowel syndrome 01/2023 documented as of this encounter (statuses as of 10/24/2022) [facility] History of Past illness Narrative* Problem Noted Date Diagnosed Date Resolved Date Accidental fall 04/04/2022 04/04/2022 Acute low back pain 04/04/2022 04/04/19 23 Adverse effect of drug 04/04/202204/04 Closed fracture of rib 04/04/202204/04 Diverticular disease 04/04/2022 023 Elevated liver enzymes 04/04/202204/04 Fecal impaction of colon 04/04/202201/2023 Hypokalemia 04/04/2022 04/04/2022 Intractable vomiting with nausea 04/04/2022 04/04/2022 Prerenal azotemia 04/04/2022 04/04/2022 Injury of kidney 04/04/2022 04/04/2022 Retention of urine 04/04/2022 Rib pain 04/04/2022 04/04/2022 Sepsis 04/04/2022 04/04/2022 Shoulder pain 04/04/2022 04/04/2022 Unspecified urinary incontinence 04/04/2022 04/04/2022 Weakness 04/04/2022 04/04/2022 Urinary tract infection 03/25/202203/25 Abdominal pain 10/03/2021 04/04/2022 Sprain and strain of unspeci fied site of shoulder and upper arm 01/19/2008 02/11/2020 Hypothyroidism, acquired 09/11/2005 Other constipation 3 Abdominal pain, left lower quadrant 10/22/2017 Irritable bowel syndrome 01/2023 documented as of this encounter (statuses as of 10/30/2022) [facility] History of Past illness Narrative* Problem Noted Date Diagnosed Date Resolved Date Accidental fall 04/04/2022 04/04/2022 Acute low back pain 04/04/2022 04/04/19 23 Adverse effect of drug 04/04/202204/04 Closed fracture of rib 04/04/202204/04 Diverticular disease 04/04/2022 023 Elevated liver enzymes 04/04/202204/04 Fecal impaction of colon 04/04/202201/2023 Hypokalemia 04/04/2022 04/04/2022 Intractable vomiting with nausea 04/04/2022 04/04/2022 Prerenal azotemia 04/04/2022 04/04/2022 Injury of kidney 04/04/2022 04/04/2022 Retention of urine 04/04/2022 3 Rib pain 04/04/2022 04/04/2022 Sepsis 04/04/2022 04/04/2022 Shoulder pain 04/04/2022 04/04/2022 Unspecified urinary incontinence 04/04/2022 04/04/2022 Weakness 04/04/2022 04/04/2022 Urinary tract infection 03/25/202203/25 Abdominal pain 10/03/2021 04/04/2022 Sprain and strain of unspeci fied site of shoulder and upper arm 01/19/2008 02/11/2020 Hypothyroidism, acquired 09/11/2005 Other constipation 3 Abdominal pain, left lower quadrant 10/22/2017 Irritable bowel syndrome 01/2023 documented as of this encounter (statuses as of 11/16/2022) [facility] Miscellaneous Notes* Telephone Encounter - Robson Alas LPN - 03/30/2022 11:52 AM EST Cecy notified. She states pt will not continue the potassium so if provider could discuss/ write to discontinue the potassium at appt with PCP on 04/04/22. Robson Alas LPN * Telephone Encounter - Da Ocampo MD - 03/30/2022 11:39 AM EST I have not seen her in some time and she has been in hospital. I would go with what is the discharge list. * Telephone Encounter - Althea Herrera LPN - 03/30/2022 11:18 AM EST Cecy with [facility] nursing calling for clarification on Potassium and Preservation. Pt has instructed her she is not taking these. Please advise Cecy. Althea Herrera LPN documented in [facility] encounterP[facility]01[facility]23 Miscellaneous Notes* Telephone Encounter - Da Ocampo MD - 03/29/2022 4:55 PM EST noted * Telephone Encounter - Althea Herrera LPN - 03/29/2022 4:09 PM EST Joaquina with [facility], PT calling with plan of care. They will see pt 1 time a week for 1 week, then2 times a week for 4 weeks for strengthening, gait, transfers and fall prevention. No call back needed Althea Herrera LPN documented in this encounterP[facility]01-04-2023 Miscellaneous Notes* Telephone Encounter - Yas Gamble Ma - 03/28/2022 11:49 AM EST Order faxed to [facility], verbal order given to Sandy * Telephone Encounter - Melvina Thomas RN - 03/28/2022 11:15 AM EST Sandy from [facility] called in and reports Pt was admitted to [facility] on 03/23/22 for a small bowel obstruction and UTI and discharged on 03/25/22. She reports they were not able to set up HH over the weekend, so she is asking if the provider would be willing to put in the order for PT and send it to them andfollow. Please call and advise, ok to leave voicemail as it is a confidential line. documented in this encounterP[facility]07-27-2022 Miscellaneous Notes* Telephone Encounter - Tricia Posada RN - 10/18/2021 3:19 PM EDT Patient has been identified by name and date of : Yes Patient phones for refill(s): Pending Prescriptions Disp Refills HYDROCHLOROTHIAZIDE 25 MG TABLET 90 tablet 1 Sig: Take 1 tablet by mouth once daily. GURMEET: No Patient requests new script to a different pharmacy. Date of last office visit with pcp: 08/02/21 Date of last office visit in primary care: Last 2 Encounter Wt Readings: Date: Wt: 08/02/2021 69.5 kg (153 lb 3.2 oz) 07/06/2021 71.3 kg (157 lb 3.2 oz) Previous labs/tests for medication: Potassium: No components found for: POT Please advise. Thank you. Tricia Posada RN documented in this encounterP[facility]07-19-2022 Miscellaneous Notes* Telephone Encounter - Joaquina Reyes - 10/10/2021 4:39 PM EDT Patient needs her levothyroxine sent to the [facility] in [place]. no longer covers through [facility]. * Telephone Encounter - Joaquina Woo Pss - 10/10/2021 4:38 PM EDT Pharmacy verified in Epic Patient has been identified by name and date of : Yes Patient aware RX will be sent to pharmacy. No need to notify patient. Patient phones for refill(s): Pending Prescriptions Disp Refills LEVOTHYROXINE 88 MCG TABLET 90 tablet 3 Sig: Take 1 tablet by mouth daily before breakfast. GURMEET: No Date of last office visit : 08/02/2021 Date of next office visit : 02/06/2022 Last 2 Encounter Wt Readings: Date: Wt: 08/02/2021 69.5 kg (153 lb 3.2 oz) 07/06/2021 71.3 kg (157 lb 3.2 oz) Not applicable Please advise. Joaquina Woo Pss documented in this encounterPome[facility]06-10-2022 Miscellaneous Notes* Telephone Encounter - Robson Alas LPN - 09/01/2021 4:08 PM EDT Pt needs to contact orginal prescriber for this medication. Robson Alas LPN * Telephone Encounter - Macarena Herrera Pss - 09/01/2021 4:04 PM EDT Patient asking if this can be called in to pharmacy as well; she said that Dr. Dockery usually takes care of this; when I told her that it might be Saturday before this is done she stated she would just call Dr. Dockery. After I already created everything. Patient has been identified by name and date of : Yes Pending Prescriptions Disp Refills METHENAMINE HIPPURATE 1 GRAM TABLET 90 tablet 3 Sig: Take 1 tablet by mouth once daily as needed. GURMEET: No RX INSTRUCTIONS: Patient requesting a call when RX is approved and sent to the pharmacy. Please call patient at: [phone] Macarena Santosdoug Vargashl Pss documented in this encounterP[facility]06-[facility]-2022 Miscellaneous Notes* Telephone Encounter - Robson Alas LPN - 09/01/2021 4:02 PM EDT LISETTE 08/02/21 NOV 02/06/22 * Telephone Encounter - Macarena Reyes - 09/01/2021 3:52 PM EDT Patient has been identified by name and date of : Yes Pending Prescriptions Disp Refills VENLAFAXINE 75 MG TABLET 180 tablet 1 Sig: Take 1 tablet by mouth twice daily. GURMEET: No RX INSTRUCTIONS: Patient aware RX will be sent to pharmacy. No need to notify patient. Macarenadoug Vargasheather Reyes documented in this encounterPomerene Hospital05-20-2022 Miscellaneous Notes* Telephone Encounter - Tonya Santos - 08/11/2021 10:51 AM EDT 2nd attempt: LVMTCB Thank you, Tonya Santos * Telephone Encounter - Jennifer Reyes - 08/09/2021 1:43 PM EDT 1st attempt. Unable to leave message. No VM. Patient to schedule Card consult. Ramírez is end of December. Please offer Grace or Veronica (Rea) if patient requesting sooner appt. * Telephone Encounter - Yas Gamble Ma - 08/08/2021 5:12 PM EDT Patient was made aware of the results. Patient verbalizes understanding. 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 Is worsening. Call if any shortness of breath or edema. Recommend to see cardiology documented in this encounterPomerene Hospital05-12-2022 Miscellaneous Notes* Telephone Encounter - Yas Gamble Ma - 08/03/2021 1:07 PM EDT Patient was made aware of the results. Patient verbalizes understanding. Yas Gamble Ma * Telephone Encounter - Da Ocampo MD - 08/03/2021 11:20 AM EDT Labs stable. Slightly anemic, could still be recovering from surgery but recheck labs to be on safeside in one week documented in this encounterPomerene Hospital05-03-2022 Miscellaneous Notes* Telephone Encounter - Melvina Thomas RN - 07/25/2021 4:50 PM EDT Pt called and is notified of providers massage and instructions. Pt voices understanding. Melvina Thomas RN * Telephone Encounter - Da Ocampo MD - 07/25/2021 4:46 PM EDT I would keep doing what she is doing for now., if bad, needs seen by someone in building sooner * Telephone Encounter - Althea Herrera LPN - 07/25/2021 4:23 PM EDT Pt calling with update and has questions: 1. Sore area pt feels there may be an small open area because she is seeing a little blood on tissue, when she urinates if the urine hits the area, severe pain. (Pt not able to see the area so unableto provide any further information). 2. Pt asking if she should continue to put on the ointment. 3. Pt asking is she would benefit from a barrier over the area to protect from urine and feces. Shewas given a barrier you put on babies bottom for diaper rash in the past. Pt not certain of the name. 4. Office apt booked for 07-27-21. Declined earlier apt wants to see either you or Antonio. Please advise pt. documented in this encounterPomerene Hospital04-26-2022 Miscellaneous Notes* Telephone Encounter - Lisbet Springer LPN - 07/18/2021 2:40 PM EDT Patient notified, verbalized understanding. States has only been using the mycolog. Patient states there is no open sores or drainage. Advised patient to keep area clean and applying the ointment, patient verbalized understanding. * Telephone Encounter - Da Ocampo MD - 07/18/2021 2:19 PM EDT mycolog can take up to a month to work. Is she having any skin breakdown- drainage or open sores. What is the body cream? * Telephone Encounter - Althea Herrera LPN - 07/18/2021 1:52 PM EDT Pt called and states the Mycolog ointment she is using x 2 weeks is not working. Pt states hurts when she sits down and the pad rubs the perineum area. The skin feels very thin. Pt states when she has a BM the area is very tender and she has to be very careful when cleaning herself. She is putting the ointment on twice a day. Pt states she has a baby paste if you think this may help especially atnight when she urinates in her sleep would help protect the area. Please advise pt on what you recommend she do. Althea Herrera LPN documented in this encounterPomerene Hospital04-18-2022 History of Present illness Narrative* Jessie Dick - 07/10/2021 4:24 PM EDT POPULATION HEALTH NAVIGATION OUTREACH Action/FYI DECLINED Pt identified by name and : YES, via phone Outreach Outcome/Action Spoke to patient or caregiver: Patient declined Reason for Outreach Care Gap or Scheduling/Wellness visits Payer: Payor: MEDICARE / Plan: MEDICARE A AND B / Product Type: Medicare / Care Gap Reviewed:: RAYMOND Reminder: Reminder note to check Health Maintenance for items below Health Maintenance items due: COVID-19 VACCINE(1) Never done SHINGRIX VACCINE(1 of 2) Never done DTAP,TDAP,TD(1 - Tdap) due on 07/06/2017 LDL CHOLESTEROL due on 09/29/2020 HBA1C due on 02/25/2021 ADVANCE DIRECTIVE DISCUSSION Never done Message Sent to Practice: No Navigation Signature: Jessie Dick July 10, 2021 4:24 PM documented in this encounterPomerene Hospital04-17-2022 Miscellaneous Notes* Telephone Encounter - Cadence Herrera LPN - 07/09/2021 12:06 PM EDT Phone call placed prior, [facility] active 07/08/21, message sent with updated results. Cadence Herrera LPN * Telephone Encounter - Cadence Herrera LPN - 07/07/2021 9:13 AM EDT Phone call placed brief message to contact a nurse. Cadence Herrera LPN * Telephone Encounter - Cadence Herrera LPN - 07/07/2021 9:11 AM EDT ----- Message from Rachna Garcia APRN.BOARD HAMMER OPERATOR sent at 07/06/2021 8:19 PM EDT ----- Please advise patient the radiologist sees a possible old fracture at the base of the distal fibula. This is not likely causing her pain, however I would like her to follow up with podiatry so he canevaluate the xrays. Referral entered. Rachna Garcia APRN.BOARD HAMMER OPERATOR documented in this encounterPomerene Hospital04-14-2022 Miscellaneous Notes* Telephone Encounter - Tonya Espinal Ma - 07/06/2021 10:36 AM EDT LISETTE 05/05/21 NOV 08/02/21 Tonya Espinal Ma * Telephone Encounter - Ciera Reeves - 07/06/2021 10:32 AM EDT Patient has been identified by name and date of : Yes Pending Prescriptions Disp Refills LEVOTHYROXINE 88 MCG TABLET 90 tablet 3 Sig: Take 1 tablet by mouth daily before breakfast. GURMEET: No HYDROCHLOROTHIAZIDE 25 MG TABLET 90 tablet 1 Sig: Take 1 tablet by mouth once daily. GURMEET: No RX INSTRUCTIONS: Patient aware RX will be sent to pharmacy. No need to notify patient. Ciera Reeves documented in this encounterPomerene Hospital04-13-2022 Miscellaneous Notes* Telephone Encounter - Zoila Chu LPN - 07/05/2021 4:24 PM EDT Patient calling to check status of request. Went over notes below from Dr Ocampo with understanding. Aware rx to pharmacy. * Telephone Encounter - Da Ocampo MD - 07/04/2021 5:22 PM EDT rx sent. Call if symptoms worsen at all or if not better in one to two weeks * Telephone Encounter - Melvina Thomas RN - 07/04/2021 4:51 PM EDT Pt called in and reports that at night she has an issue with urinary incontinence. She reports thatduring the day, she just goes every two hours or so and she is fine, but at night she wears a pad and soaks it and this has caused sores on her butt. She states she has been using barrier cream and A& amp;D ointment, but there is one small spot that she can feel near the rectum that pulls and is painful when she sits down. She states it isn't bleeding, but there is also a rash around her rectum. Pt reports that Nixon ABEBE gave her cream that has been pended before and it had helped. Pt asking if provider would be willing to send ointment in for her. Please call and advise. Patient has been identified by name and date of : Yes Patient phones for refill(s): Pending Prescriptions Disp Refills NYSTATIN-TRIAMCINOLONE 100,000 UNIT/GRAM-0.1 % TOPICAL OINTMENT 30 g 1 Sig: Apply sparingly to perineum twice daily for irritation/infection. GURMEET: No Date of last office visit in primary care: 05/05/21 Future visit: 08/02/21 Last 2 Encounter Wt Readings: Date: Wt: 05/05/2021 66.3 kg (146 lb 3.2 oz) 12/09/2020 68.5 kg (151 lb) Previous labs/tests for medication: Blood Pressure: BUN (mg/dL) Date Value 05/04/2020 22 Sodium (mmol/L) Date Value 05/04/2020 138 Last 1 Encounter BP Readings: Date: BP: 05/05/2021 120/62 Liver Function: ALT (U/L) Date Value 09/30/2019 11 AST (U/L) Date Value 09/30/2019 16 Please advise. Thank you. Melvina Thomas RN documented in this encounterPomerene Hospital10-27-2008 History of Past illness Narrative* Problem Noted Date Resolved Date Sprain and strain of unspeci fied site of shoulder and upper arm 01/19/2008 02/11/2020 Hypothyroidism, acquired 09/11/2005 020 Abdominal pain, left lower quadrant 10/22/2017 documented as of this encounter (statuses as of 07/05/2021) [facility] Narrative* Problem Noted Date Resolved Date Sprain and strain of unspeci fied site of shoulder and upper arm 01/19/2008 02/11/2020 Hypothyroidism, acquired 09/11/2005 020 Abdominal pain, left lower quadrant 10/22/2017 documented as of this encounter (statuses as of 07/05/2021) [facility] illness Narrative* Problem Noted Date Resolved Date Sprain and strain of unspeci fied site of shoulder and upper arm 01/19/2008 02/11/2020 Hypothyroidism, acquired 09/11/2005 020 Abdominal pain, left lower quadrant 10/22/2017 documented as of this encounter (statuses as of 07/06/2021) [facility] Narrative* Problem Noted Date Resolved Date Sprain and strain of unspeci fied site of shoulder and upper arm 01/19/2008 02/11/2020 Hypothyroidism, acquired 09/11/2005 020 Abdominal pain, left lower quadrant 10/22/2017 documented as of this encounter (statuses as of 07/09/2021) [facility] Narrative* Problem Noted Date Resolved Date Sprain and strain of unspeci fied site of shoulder and upper arm 01/19/2008 02/11/2020 Hypothyroidism, acquired 09/11/2005 020 Abdominal pain, left lower quadrant 10/22/2017 documented as of this encounter (statuses as of 07/10/2021) [facility] Narrative* Problem Noted Date Resolved Date Sprain and strain of unspeci fied site of shoulder and upper arm 01/19/2008 02/11/2020 Hypothyroidism, acquired 09/11/2005 020 Abdominal pain, left lower quadrant 10/22/2017 documented as of this encounter (statuses as of 07/18/2021) [facility] Narrative* Problem Noted Date Resolved Date Sprain and strain of unspeci fied site of shoulder and upper arm 01/19/2008 02/11/2020 Hypothyroidism, acquired 09/11/2005 020 Abdominal pain, left lower quadrant 10/22/2017 documented as of this encounter (statuses as of 07/25/2021) [facility] Narrative* Problem Noted Date Resolved Date Sprain and strain of unspeci fied site of shoulder and upper arm 01/19/2008 02/11/2020 Hypothyroidism, acquired 09/11/2005 020 Abdominal pain, left lower quadrant 10/22/2017 documented as of this encounter (statuses as of 08/03/2021) [facility] Narrative* Problem Noted Date Resolved Date Sprain and strain of unspeci fied site of shoulder and upper arm 01/19/2008 02/11/2020 Hypothyroidism, acquired 09/11/2005 020 Abdominal pain, left lower quadrant 10/22/2017 documented as of this encounter (statuses as of 08/11/2021) [facility] Narrative* Problem Noted Date Resolved Date Sprain and strain of unspeci fied site of shoulder and upper arm 01/19/2008 02/11/2020 Hypothyroidism, acquired 09/11/2005 020 Abdominal pain, left lower quadrant 10/22/2017 documented as of this encounter (statuses as of 09/01/2021) [facility] Narrative* Problem Noted Date Resolved Date Sprain and strain of unspeci fied site of shoulder and upper arm 01/19/2008 02/11/2020 Hypothyroidism, acquired 09/11/2005 020 Abdominal pain, left lower quadrant 10/22/2017 documented as of this encounter (statuses as of 09/01/2021) [facility] Narrative* Problem Noted Date Resolved Date Sprain and strain of unspeci fied site of shoulder and upper arm 01/19/2008 02/11/2020 Hypothyroidism, acquired 09/11/2005 020 Abdominal pain, left lower quadrant 10/22/2017 documented as of this encounter (statuses as of 10/10/2021) [facility] Narrative* Problem Noted Date Resolved Date Sprain and strain of unspeci fied site of shoulder and upper arm 01/19/2008 02/11/2020 Hypothyroidism, acquired 09/11/2005 020 Abdominal pain, left lower quadrant 10/22/2017 documented as of this encounter (statuses as of 10/18/2021) [facility] Narrative* Problem Noted Date Resolved Date Sprain and strain of unspeci fied site of shoulder and upper arm 01/19/2008 02/11/2020 Hypothyroidism, acquired 09/11/2005 020 Abdominal pain, left lower quadrant 10/22/2017 documented as of this encounter (statuses as of 03/30/2022) [facility] Narrative* Problem Noted Date Resolved Date Sprain and strain of unspeci fied site of shoulder and upper arm 01/19/2008 02/11/2020 Hypothyroidism, acquired 09/11/2005 020 Abdominal pain, left lower quadrant 10/22/2017 documented as of this encounter (statuses as of 03/30/2022) [facility] Narrative* Problem Noted Date Resolved Date Sprain and strain of unspeci fied site of shoulder and upper arm 01/19/2008 02/11/2020 Hypothyroidism, acquired 09/11/2005 020 Abdominal pain, left lower quadrant 10/22/2017 documented as of this encounter (statuses as of 03/31/2022) [facility] Diagnosis Hypothyroidism, acquired Unspecified hypothyroidism Edema, unspecified type [facility] Diagnosis Anemia, unspecified type- Primary [facility] Diagnosis Aortic valve stenosis, etiology of cardiac valve disease unspecified- Primary documented in this encounter [facility] note* Diagnosis Recurrent major depressive disorder, in remission (HCC) documented in this encounter [facility] note* Diagnosis Hypothyroidism, acquired Unspecified hypothyroidism documented in this encounter [facility] note* Diagnosis Edema, unspecified type documented in this encounter [facility] note* Diagnosis SBO (small bowel obstruction) ([facility])- Primary Unspecified intestinal obstruction documented in this encounter [facility] note* Diagnosis Essential hypertension, benign- Primary Mixed hyperlipidemia Mitral valve insufficiency, unspecified etiology Nonrheumatic aortic valve stenosis Aortic valve disorders History of resection of small bowel Personal history of surgery to other organs Controlled type 2 diabetes mellitus without complication, without long-term current use of insulin (HCC) Hypothyroidism, unspecified type History of ovarian cancer Personal history of malignant neoplasm of ovary Recurrent major depressive disorder, in remission (HCC) Dementia without behavioral disturbance, psychotic disturbance, mood disturbance, or anxiety, unspecified dementia severity, unspecified dementia type (HCC) Edema, unspecified type Localized swelling, mass and lump, left lower limb Cellulitis of skin Cellulitis and abscess of unspecified site Hypothyroidism, acquired Unspecified hypothyroidism documented in this encounter [facility] note* Diagnosis Recurrent major depressive disorder, in remission (HCC) documented in this encounter [facility] note* Diagnosis Edema, unspecified type documented in this encounter [facility] note* Diagnosis Recurrent UTI (urinary tract infection)- Primary Urinary tract infection, site not specified Nonrheumatic aortic valve stenosis Aortic valve disorders Essential hypertension, benign Mixed hyperlipidemia Controlled type 2 diabetes mellitus without complication, without long-term current use of insulin (HCC) Hypothyroidism, unspecified type documented in this encounter [facility] note* Diagnosis Decreased vision- Primary Unspecified visual loss Essential hypertension, benign Mixed hyperlipidemia Nonrheumatic aortic valve stenosis Aortic valve disorders Controlled type 2 diabetes mellitus without complication, without long-term current use of insulin (HCC) Hypothyroidism, unspecified type History of ovarian cancer Personal history of malignant neoplasm of ovary Dementia without behavioral disturbance, psychotic disturbance, mood disturbance, or anxiety, unspecified dementia severity, unspecified dementia type (HCC) Panic disorder without agoraphobia Recurrent major depressive disorder, in remission (HCC) History of elevated lipids Personal history of other endocrine, metabolic, and immunity disorders Decubitus ulcer of coccyx, unspecified pressure ulcer stage Band keratopathy, left [facility] Diagnosis Band keratopathy, 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) [facility] Diagnosis Nonrheumatic aortic valve stenosis- Primary Aortic valve disorders Aortic valve disorder Aortic valve disorders Essential hypertension, benign [facility] Diagnosis Hypothyroidism, acquired Unspecified hypothyroidism [facility] Diagnosis NO SHOW- Primary [facility] Diagnosis Anxiety- Primary Anxiety state, unspecified documented in this encounter [facility] for referral (narrative)* Outpatient Procedure (Routine) - Authorized Specialty Diagnoses / Procedures Referred By Nell arthur Referred To [facility] Diagnoses Nonrheumatic aortic valve stenosis Procedures ECHO ECHO TTHRC R-T 2D W/WOM-MODE COMPL SPEC&COLR D Da Ocampo MD [address] [place] [address] [facility] [place] [address] [place] [address] Referral ID Status Reason Start Date Expiration Date Visits Requested Visits Authorized [id number] Authorized Auto-Generat ed Referral 07/23/2022 07/23/2023 1 1 * Consult, Test, Treat (Routine) - Authorized Specialty Diagnoses / Procedures Referred By Nell arthur Referred To Contact Urology Diagnoses Recurrent UTI (urinary tract infection) Procedures CONSULT TO UROLOGY OFFICE/OUTPATIENT [facility] 60-74 MINUTES Da Ocampo MD [address] [place] [address] Referral ID Status Reason Start Date Expiration Date Visits Requested Visits Authorized [id number] Authorized PCP Requested Referral 07/23/2022 07/23/2023 1 1 [facility] for referral (narrative)* Outpatient Procedure (Routine) - Pending Review Specialty Diagnoses / Procedures Referred By Contac t Referred To Contact [facility] [place] Diagnoses Nonrheumatic aortic valve stenosis Procedures ECHO ECHO TTHRC R-T 2D W/WOM-MODE COMPL SPEC&COLR D Kevin Fox MD [address] [place] [address] Fax: [facility] [address] [place] [id number] Referral ID Status Reason Start Date Expiration Date Visits Requested Visits Authorized [id number] Pending Review Auto-Generat ed Referral 07/23/2023 01/21/2024 1 1 * Outpatient Procedure (Routine) - Pending Review Specialty Diagnoses / Procedures Referred By Contac t Referred To Contact [facility] Diagnoses Screening for ischemic heart disease Procedures ECG COMPLETE ECG ROUTINE ECG W/LEAST 12 LDS W/I&R Kevin Fox MD [address] [place] [address] [facility] [address] [place] [address] Referral ID Status Reason Start Date Expiration Date Visits Requested Visits Authorized [id number] Pending Review Auto-Generat ed Referral 3 01/14/2024 1 1 [facility] Reason for Referral Specialty Diagnoses / Procedures Referred By Contac t Referred To Contact Cardiology Diagnoses Aortic valve stenosis, etiology of cardiac valve disease unspecified Procedures CONSULT TO CARDIOLOGY OFFICE/OUTPATIENT [facility] MDM 60-74 MINUTES Da Ocampo MD [address] [place] [address] Referral ID Status Reason Start Date Expiration Date Visits Requested Visits Authorized [id number] Authorized PCP Requested Referral 08/08/2021 08/08/2022 1 1 Specialty Diagnoses / Procedures Referred By Contac t Referred To Contact [facility] Diagnoses SBO (small bowel obstruction) ([facility]) Procedures CONSULT TO PHYSICAL THERAPY PHYSICAL THERAPY EVALUATION [facility] 45 MINS Da Ocampo MD [address] [place] [address] [facility] [place] [address] [place] [id number] Referral ID Status Reason Start Date Expiration Date Visits Requested Visits Authorized [id number] Authorized PCP Requested Referral Auto-Generate d Referral 03/28/2022 03/28/2023 99 99 Specialty Diagnoses / Procedures Referred By Contac t Referred To Contact Cardiology Diagnoses Nonrheumatic aortic valve stenosis Procedures CONSULT TO CARDIOLOGY OFFICE/OUTPATIENT [facility] 60-74 MINUTES Da Ocampo MD [address] [place] [address] Referral ID Status Reason Start Date Expiration Date Visits Requested Visits Authorized [id number] Authorized PCP Requested Referral 04/04/2022 04/04/2023 1 1 Specialty Diagnoses / Procedures Referred By Contac t Referred [facility] Diagnoses Edema, unspecified type Localized swelling, mass and lump, left lower limb Procedures US LEG VEIN DVT UNL VAS LAB DUP-SCAN XTR VEINS UNILATERAL/LIMITED STUDY Da Ocampo MD [address] [place] [address] [facility] [address] [place] [id number] Referral ID Status Reason Start Date Expiration Date Visits Requested Visits Authorized [id number] Authorized Auto-Generat ed Referral 04/04/2022 04/04/2023 1 1 Summary Purpose Family History No Family History Records FoundNo Family History Records Found Advance Directives No Advanced Directives Records FoundNo Advanced Directives Records Found Additional Source Comments Source Comments (unrecognize d section and content) In the event this informatio n is protected by the Federal Confidentiality of Alcohol and Drug Abuse Patient Records regulations: The Federal rules restrict any use of the information to criminally investigate or prosecute any alcohol or drug abuse patient.[facility] the event this information is protected by the Federal Confidentiality of Alcohol and Drug Abuse Patient Records regulations: The Federal rules restrict any use of the information to criminally investigate or prosecute any alcohol or drug abuse patient.[facility] the event this information is protected by the Federal Confidentiality of Alcohol and Drug Abuse Patient Records regulations: The Federal rules restrict any use of the information to criminally investigate or prosecute any alcohol or drug abuse patient.[facility] the event this information is protected by the Federal Confidentiality of Alcohol and Drug Abuse Patient Records regulations: The Federal rules restrict any use of the information to criminally investigate or prosecute any alcohol or drug abuse patient.[facility] the event this information is protected by the Federal Confidentiality of Alcohol and Drug Abuse Patient Records regulations: The Federal rules restrict any use of the information to criminally investigate or prosecute any alcohol or drug abuse patient.[facility] the event this information is protected by the Federal Confidentiality of Alcohol and Drug Abuse Patient Records regulations: The Federal rules restrict any use of the information to criminally investigate or prosecute any alcohol or drug abuse patient.[facility] the event this information is protected by the Federal Confidentiality of Alcohol and Drug Abuse Patient Records regulations: The Federal rules restrict any use of the information to criminally investigate or prosecute any alcohol or drug abuse patient.[facility] the event this information is protected by the Federal Confidentiality of Alcohol and Drug Abuse Patient Records regulations: The Federal rules restrict any use of the information to criminally investigate or prosecute any alcohol or drug abuse patient.[facility] the event this information is protected by the Federal Confidentiality of Alcohol and Drug Abuse Patient Records regulations: The Federal rules restrict any use of the information to criminally investigate or prosecute any alcohol or drug abuse patient.[facility] the event this information is protected by the Federal Confidentiality of Alcohol and Drug Abuse Patient Records regulations: The Federal rules restrict any use of the information to criminally investigate or prosecute any alcohol or drug abuse patient.[facility] the event this information is protected by the Federal Confidentiality of Alcohol and Drug Abuse Patient Records regulations: The Federal rules restrict any use of the information to criminally investigate or prosecute any alcohol or drug abuse patient.[facility] the event this information is protected by the Federal Confidentiality of Alcohol and Drug Abuse Patient Records regulations: The Federal rules restrict any use of the information to criminally investigate or prosecute any alcohol or drug abuse patient.[facility] the event this information is protected by the Federal Confidentiality of Alcohol and Drug Abuse Patient Records regulations: The Federal rules restrict any use of the information to criminally investigate or prosecute any alcohol or drug abuse patient.[facility] the event this information is protected by the Federal Confidentiality of Alcohol and Drug Abuse Patient Records regulations: The Federal rules restrict any use of the information to criminally investigate or prosecute any alcohol or drug abuse patient.[facility] the event this information is protected by the Federal Confidentiality of Alcohol and Drug Abuse Patient Records regulations: The Federal rules restrict any use of the information to criminally investigate or prosecute any alcohol or drug abuse patient.[facility] the event this information is protected by the Federal Confidentiality of Alcohol and Drug Abuse Patient Records regulations: The Federal rules restrict any use of the information to criminally investigate or prosecute any alcohol or drug abuse patient.[facility] Hospital[facility] the event this information is protected by the Federal Confidentiality of Alcohol and Drug Abuse Patient Records regulations: The Federal rules restrict any use of the information to criminally investigate or prosecute any alcohol or drug abuse patient.[facility] Hospital[facility] the event this information is protected by the Federal Confidentiality of Alcohol and Drug Abuse Patient Records regulations: The Federal rules restrict any use of the information to criminally investigate or prosecute any alcohol or drug abuse patient.[facility] HospitalIn the event this information is protected by the Federal Confidentiality of Alcohol and Drug Abuse Patient Records regulations: The Federal rules restrict any use of the information to criminally investigate or prosecute any alcohol or drug abuse patient.[facility] HospitalIn the event this information is protected by the Federal Confidentiality of Alcohol and Drug Abuse Patient Records regulations: The Federal rules restrict any use of the information to criminally investigate or prosecute any alcohol or drug abuse patient.[facility] the event this information is protected by the Federal Confidentiality of Alcohol and Drug Abuse Patient Records regulations: The Federal rules restrict any use of the information to criminally investigate or prosecute any alcohol or drug abuse patient.[facility] the event this information is protected by the Federal Confidentiality of Alcohol and Drug Abuse Patient Records regulations: The Federal rules restrict any use of the information to criminally investigate or prosecute any alcohol or drug abuse patient.[facility] the event this information is protected by the Federal Confidentiality of Alcohol and Drug Abuse Patient Records regulations: The Federal rules restrict any use of the information to criminally investigate or prosecute any alcohol or drug abuse patient.[facility] the event this information is protected by the Federal Confidentiality of Alcohol and Drug Abuse Patient Records regulations: The Federal rules restrict any use of the information to criminally investigate or prosecute any alcohol or drug abuse patient.[facility]In the event this information is protected by the Federal Confidentiality of Alcohol and Drug Abuse Patient Records regulations: The Federal rules restrict any use of the information to criminally investigate or prosecute any alcohol or drug abuse patient.[facility]In the event this information is protected by the Federal Confidentiality of Alcohol and Drug Abuse Patient Records regulations: The Federal rules restrict any use of the information to criminally investigate or prosecute any alcohol or drug abuse patient.[facility]In the event this information is protected by the Federal Confidentiality of Alcohol and Drug Abuse Patient Records regulations: The Federal rules restrict any use of the information to criminally investigate or prosecute any alcohol or drug abuse patient.[facility]In the event this information is protected by the Federal Confidentiality of Alcohol and Drug Abuse Patient Records regulations: The Federal rules restrict any use of the information to criminally investigate or prosecute any alcohol or drug abuse patient.[facility]In the event this information is protected by the Federal Confidentiality of Alcohol and Drug Abuse Patient Records regulations: The Federal rules restrict any use of the information to criminally investigate or prosecute any alcohol or drug abuse patient.[facility] HospitalIn the event this information is protected by the Federal Confidentiality of Alcohol and Drug Abuse Patient Records regulations: The Federal rules restrict any use of the information to criminally investigate or prosecute any alcohol or drug abuse patient.[facility] HospitalIn the event this information is protected by the Federal Confidentiality of Alcohol and Drug Abuse Patient Records regulations: The Federal rules restrict any use of the information to criminally investigate or prosecute any alcohol or drug abuse patient.[facility]In the event this information is protected by the Federal Confidentiality of Alcohol and Drug Abuse Patient Records regulations: The Federal rules restrict any use of the information to criminally investigate or prosecute any alcohol or drug abuse patient.[facility] HospitalIn the event this information is protected by the Federal Confidentiality of Alcohol and Drug Abuse Patient Records regulations: The Federal rules restrict any use of the information to criminally investigate or prosecute any alcohol or drug abuse patient.[facility] HospitalIn the event this information is protected by the Federal Confidentiality of Alcohol and Drug Abuse Patient Records regulations: The Federal rules restrict any use of the information to criminally investigate or prosecute any alcohol or drug abuse patient.[facility] HospitalIn the event this information is protected by the Federal Confidentiality of Alcohol and Drug Abuse Patient Records regulations: The Federal rules restrict any use of the information to criminally investigate or prosecute any alcohol or drug abuse patient.[facility] HospitalIn the event this information is protected by the Federal Confidentiality of Alcohol and Drug Abuse Patient Records regulations: The Federal rules restrict any use of the information to criminally investigate or prosecute any alcohol or drug abuse patient.[facility] HospitalIn the event this information is protected by the Federal Confidentiality of Alcohol and Drug Abuse Patient Records regulations: The Federal rules restrict any use of the information to criminally investigate or prosecute any alcohol or drug abuse patient.[facility] Reason for Visit (unrecogniz ed section and content) Reason Onset Date Comments Refill Request 07/06/2021 Reason Comments Results Reason Comments Patient Update Reason Comments Patient Update Questions Returning Patient's Call Reason Comments Results Reason Comments Prescription Refills Reason Onset Date Comments Refill Request 10/10/2021 Reason Onset Date Comments Refill Request 10/18/2021 Reason Comments Orders Reason Comments [facility], PT plan of care Reason Comments [facility] nursing clarification Reason Comments 6 Month Exam Hospital F/U Reason Comments Patient Question Reason Onset Date Comments Refill Request 04/09/2022 Reason Comments Refill Request Reason Onset Date Comments Refill Request 05/30/2022 Reason Comments ER F/U Reason Onset Date Comments Refill Request 10/10/2022 Reason Comments Medication request; question Reason Comments Schedule Surgery Chelation left eye Reason Comments Pre-Op Exam Reason Comments Post-op (Ophthalmology) Left Eye Reason Comments New Patient Specialty Diagnoses / Procedures Referred By Contac t Referred To Contact Cardiology Diagnoses Nonrheumatic aortic valve stenosis Procedures CONSULT TO CARDIOLOGY OFFICE/OUTPATIENT [facility] 60-74 MINUTES Da Ocampo MD [address] [place] [address] Referral ID Status Reason Start Date Expiration Date V isits Requested Visits Authorized [id number] Closed PCP Requested Referral 04/04/2022 04/04/2023 1 1 Reason Onset Date Comments Refill Request 02/06/2023 Reason Comments Patient Question Patient Update Reason Comments Acute Visit Care Teams (unrecognized sec tion and content) Disease Management Nurse Relationship Specialty Start Date End Date Da Ocampo MD [address] [place], [place] [id number] PCP - General Family Practice 07/17/17 Nahed Batista E [address] [address] Consulting Urology 03/17/19 [facility] 10/09/18 Disease Management Nurse Relationship Specialty Start Date End Date Da Ocampo MD [address] [place], [place] [address] PCP - General Family Practice 07/17/17 [facility] [address] [address] Consulting Urology 03/17/19 [facility] 10/09/18 Disease Management Nurse Relationship Specialty Start Date End Date Da Ocampo MD [address] [place], [place] [address] PCP - General Family Practice 07/17/17 [facility] [address] [address] Consulting Urology 03/17/19 [facility] 10/09/18 Disease Management Nurse Relationship Specialty Start Date End Date Da Ocampo MD [address] [place], [place] [id number] PCP - General Family Practice 07/17/17 Nahed Batista E [address] [address] Consulting Urology 03/17/19 [facility] 10/09/18 Disease Management Nurse Relationship Specialty Start Date End Date Da Ocampo MD [address] [place], [place] [address] PCP - General Family Practice 07/17/17 [facility] [address] [address] Consulting Urology 03/17/19 [facility] 10/09/18 Disease Management Nurse Relationship Specialty Start Date End Date Da Ocampo MD [address] [place], [place] [address] PCP - General Family Practice 07/17/17 [facility] [address] [address] Consulting Urology 03/17/19 [facility] 10/09/18 Disease Management Nurse Relationship Specialty Start Date End Date Da Ocampo MD [address] [place], [place] [address] PCP - General Family Practice 07/17/17 Nahed Batista E [facility] [address] [address] Consulting Urology 03/17/19 [facility] 10/09/18 Disease Management Nurse Relationship Specialty Start Date End Date Da Ocampo MD [address] [place], [place] [address] PCP - General Family Practice 07/17/17 [facility]hed [facility]ista E [facility] [address] [address] Consulting Urology 03/17/19 [facility] 10/09/18 Disease Management Nurse Relationship Specialty Start Date End Date Da Ocampo MD [address] [facility] [place] [address] PCP - General Family Medicine 07/17/17 Nahed Batista E [address] [place] [address] Consulting Urology 03/17/19 [facility] 10/09/18 Disease Management Nurse Relationship Specialty Start Date End Date Da Ocampo MD [address] [facility] [place] [address] PCP - General Family Medicine 07/17/17 Nahed Batista E [address] [place] [address] Consulting Urology 03/17/19 [facility] 10/09/18 Disease Management Nurse Relationship Specialty Start Date End Date Da Ocampo MD [address] [facility] [place], [place] [address] PCP - General Family Medicine 07/17/17 Nahed Batista [address] [facility] [address] [place] [address] Consulting Urology 03/17/19 [facility] 10/09/18 Disease Management Nurse Relationship Specialty Start Date End Date Da Ocampo MD [address] [facility] [place] [address] PCP - General Family Medicine 07/17/17 Nahed Batista E [address] [place] [address] Consulting Urology 03/17/19 [facility] 10/09/18 Disease Management Nurse Relationship Specialty Start Date End Date Da Ocampo MD [address] [facility] [place], [place] [address] PCP - General Family Medicine 07/17/17 Nahed Batista [address] [facility] [address] [place] [address] Consulting Urology 03/17/19 [facility] 10/09/18 Disease Management Nurse Relationship Specialty Start Date End Date Da Ocampo MD [address] [facility] [place], [place] [address] PCP - General Family Medicine 07/17/17 Nahed Batista [address] [place] [address] Consulting Urology 03/17/19 [facility] 10/09/18 Disease Management Nurse Relationship Specialty Start Date End Date Da Ocampo MD [address] [facility] [place], [place] [address] PCP - General Family Medicine 07/17/17 Nahed Batista [address] [facility] [address] [place] [address] Consulting Urology 03/17/19 [facility] 10/09/18 Disease Management Nurse Relationship Specialty Start Date End Date Da Ocampo MD [address] [facility] [place], [place] [address] PCP - General Family Medicine 07/17/17 Nahed Batista [address] [place] [address] Consulting Urology 03/17/19 [facility] 10/09/18 Disease Management Nurse Relationship Specialty Start Date End Date Da Ocampo MD [address] [facility] [place] [address] PCP - General Family Medicine 07/17/17 Nahed Batista [address] [place] [address] Consulting Urology 03/17/19 [facility] 10/09/18 Disease Management Nurse Relationship Specialty Start Date End Date Da Ocampo MD [address] [place] [address] PCP - General Family Medicine 07/17/17 Nahed Batista [address] [place] [address] Consulting Urology 03/17/19 [facility] 10/09/18 Disease Management Nurse Relationship Specialty Start Date End Date Da Ocampo MD [address] [facility] [place] [address] PCP - General Family Medicine 07/17/17 Nahed Batista [address] [place] [address] Consulting Urology 03/17/19 [facility] 10/09/18 Disease Management Nurse Relationship Specialty Start Date End Date Da Oacmpo MD [address] [facility] [place] [address] PCP - General Family Medicine 07/17/17 Nahed Batista [address] [place] [address] Consulting Urology 03/17/19 [facility] 10/09/18 Disease Management Nurse Relationship Specialty Start Date End Date Da Ocampo MD [address] [facility] [place] [address] PCP - General Family Medicine 07/17/17 Nahed Batista [address] [facility] [address] [place] [address] Consulting Urology 03/17/19 [facility] 10/09/18 Disease Management Nurse Relationship Specialty Start Date End Date Da Ocampo MD [address] [facility] [place] [address] PCP - General Family Medicine 07/17/17 Nahed Batista [address] [facility] [address] [place] [address] Consulting Urology 03/17/19 [facility] 10/09/18 Disease Management Nurse Relationship Specialty Start Date End Date Da Ocampo MD [address] [facility] [place], [place] [id number] PCP - General Family Medicine 07/17/17 Nahed Batista [address] [facility] [address] [place], [place] [address] Consulting Urology 03/17/19 [facility] 10/09/18 Disease Management Nurse Relationship Specialty Start Date End Date aD Ocampo MD [address] [place], [place] [id number] PCP - General Family Medicine 07/17/17 Nahed Batista [address] [facility] [address] [place] [address] Consulting Urology 03/17/19 [facility] 10/09/18 INFORMATION SOURCE (unrecogn ized section and content) DATE CREATED AUTHOR AUTHOR'S ORGANIZ ATION 03/31/2023 [facility] FOR RECORDS PERTAINING TO PATIENTS WHO ARE OR HAVE BEEN ENROLLED IN A CHEMICAL DEPENDENCY/SUBSTANCEABUSE PROGRAM, SOME INFORMATION MAY BE OMITTED. This clinical summary was aggregated from multiple sources. Caution should be exercised in using it in the provision of clinical care. This summary normalizes information from multiple sources, and as a consequence, information in this document may materially change the coding, format and clinical context of patient data. In addition, data may be omitted in some cases. CLINICAL DECISIONS SHOULD BE BASED ON THE PRIMARY CLINICAL RECORDS. [employer] [facility]. provides no warranty or guarantee of the accuracy or completeness of information in this document.
--- OUTSIDE RECORDS SUMMARY | 2023-04-18 21:44 | XMS RPT_ITS | CCD ---
Author Name Unknown Address [address] [place] [address] Organization [facility] Care Team Providers Care Auto Service Instructor Name Role Phone Da Ocampo MD Primary Care Provider Nahed Batista Unavailable JERRY NUGENT Attending Unavailable JERRY NUGENT Admitting Unavailable DA OCAMPO Primary Care Unavailable Da Ocampo MD Primary Care Provider [phone] Nahed Batista Unavailable DA OCAMPO Primary Care Unavailable PHONG TREJO [...] [AMOXICILLIN-POT CLAVULANATE] Drug Allergy 04-25-20 18 Itching [facility] (13 sources) Angiotensin II receptor antagonist; Translations: [ARB-ANGIOTENSIN RECEPTOR ANTAGONIST] Drug Allergy 11-12-19 19 Angioedema [facility] Work Phone: (20 sources) Atenolol; Translations: [ATENOLOL] Drug Allergy 08-08-19 09 Itching [facility] Work Phone: (20 sources) cefdinir; Translations: [CEFDINIR] Drug Allergy 07-18-19 18 Rash [facility] (20 sources) Cephalexin; Translations: [CEPHALEXIN] Drug Allergy 10-12-19 19 Rash [facility] Work Phone: (20 sources) Ciprofloxacin; Translations: [CIPROFLOXACIN] Drug Allergy 11-13-19 19 Other: See Comments [facility] Work Phone: (20 sources) Doxycycline; Translations: [DOXYCYCLINE CALCIUM] Drug Allergy 01-10-20 05 [facility] Work Phone: (20 sources) meloxicam; Translations: [MELOXICAM] Drug Allergy 07-18-19 18 [facility] (20 sources) metroNIDAZOLE; Translations: [METRONIDAZOLE HCL] Drug Allergy 01-10-20 05 [facility] Work Phone: (20 sources) Promethazine; Translations: [PROMETHAZINE HCL] Drug Allergy 01-10-20 05 [facility] Work Phone: (20 sources) Sulfamethoxazole / Trimethoprim; Translations: [SULFAMETHOXAZOLE-TR IMETHOPRIM] Drug Allergy 07-18-19 18 [facility] (13 sources) Tetracycline (class of antibiotic); Translations: [TETRACYCLINES] Propensity to adverse reactions 01-10-20 05 [facility] Work Phone: (13 sources) Influenza Virus Vaccines; Translations: [INFLUENZA VIRUS VACCINES] Propensity to adverse reactions 02-26-20 06 Rash, Swelling, Itching [facility] Work Phone: (20 sources) Angiotensin II receptor antagonist Drug Allergy 11-12-19 19 Angioedema [facility] Work Phone: (20 sources) Tetracycline (class of antibiotic) Propensity to adverse reactions 01-10-20 05 [facility] Work Phone: (20 sources) Influenza Virus Vaccines Propensity to adverse reactions 02-26-20 06 Rash, Swelling, Itching [facility] Work Phone: (16 sources) Clavulanate; Translations: [CLAVULANIC ACID] Drug Allergy 10-12-19 Unknown [facility] (16 sources) fluticasone; Translations: [FLUTICASONE] Drug Allergy 10-12-19 Unknown [facility] (16 sources) Pneumococcal vaccine; Translations: [PNEUMOCOCCAL VACCINE] Drug Allergy 10-12-19 Unknown [facility] (16 sources) Sulfamethoxazole; Translations: [SULFAMETHOXAZOLE] Drug Allergy 10-12-19 Unknown [facility] (16 sources) Trimethoprim; Translations: [TRIMETHOPRIM] Drug Allergy 10-12-19 Unknown [facility] Medications Current Medications Medication Drug Class(es) [...] Time Vital Sign Value Performing Clinician Jenae garirdo 01-21-2023 15:03-0400 Diastolic blood pressure 74 mm[Hg] Kevin Fox MD Work Phone: [facility] 01-21-2023 15:03-0400 Heart rate 65 /min Kevin Fox MD Work Phone: [facility] 01-21-2023 15:03-0400 SaO2% (BldA) [Mass fraction] 97 % Kevin Fox MD Work Phone: [facility] 01-21-2023 15:03-0400 Systolic blood pressure 143 mm[Hg] Kevin Fox MD Work Phone: [facility] 11-16-2022 13:17-0400 Body weight 76.66 kg Da Ocampo MD Work Phone: [facility] 11-16-2022 13:17-0400 Diastolic blood pressure 62 mm[Hg] Da Ocampo MD Work Phone: [facility] 11-16-2022 13:17-0400 Heart rate 66 /min Da Ocampo MD Work Phone: [facility] 11-16-2022 13:17-0400 SaO2% (BldA) [Mass fraction] 97 % Da Ocampo MD Work Phone: [facility] 11-16-2022 13:17-0400 Systolic blood pressure 134 mm[Hg] Da Ocampo MD Work Phone: [facility] 07-23-2022 14:20-0400 Body temperature 97.59 [degF] Da Ocampo MD Work Phone: [facility] 07-23-2022 14:20-0400 Diastolic blood pressure 66 mm[Hg] Da Ocampo MD Work Phone: [facility] 07-23-2022 14:20-0400 Heart rate 62 /min aD Ocampo MD Work Phone: [facility] 07-23-2022 14:20-0400 SaO2% (BldA) [Mass fraction] 96 % Da Ocampo MD Work Phone: [facility] 07-23-2022 14:20-0400 Systolic blood pressure 144 mm[Hg] Da Ocampo MD Work Phone: [facility] 04-04-2022 15:49-0500 Body height 165.1 cm Da Ocampo MD Work Phone: [facility] 04-04-2022 15:49-0500 Body weight 76.2 kg Da Ocampo MD Work Phone: [facility] 04-04-2022 15:49-0500 Diastolic blood pressure 70 mm[Hg] Da Ocampo MD Work Phone: [facility] 04-04-2022 15:49-0500 Heart rate 64 /min Da Ocampo MD Work Phone: [facility] 04-04-2022 15:49-0500 SaO2% (BldA) [Mass fraction] 95 % Da Ocampo MD Work Phone: [facility] 04-04-2022 15:49-0500 Systolic blood pressure 142 mm[Hg] Da Ocampo MD Work Phone: [facility] Encounters Encounter Date Encounter Type Care Provider Facility Start: 03-29-2023 End: 03-29-2023 ambulatory DA OCAMPO Facility:[facility] Start: 02-18-2023 End: 02-18-2023 ambulatory Da Ocampo MD Work Phone: [facility] Plan of Treatment Date Care Activity Detail Author Start: 07-06-2027 Urine microalbumin profile [facility] Start: 11-17-2023 Hepatitis B surface antibody level LDL Cholesterol [facility] Start: 07-24-2023 Hepatitis B surface antibody level LDL CHOLESTEROL [facility] Start: 07-23-2023 End: 01-22-2024 Echocardiography ECHO Cardiology Routine Nonrheumatic aortic valve stenosis Expected: 07/23/2023, Expires: 01/22/2024 [facility] Work Phone: Immunizations Immunization Date Immunization Notes Care Provider Debi mcculre 07-05-2017 tetanus and diphther ia toxoids, adsorbed, preservative free, for adult use (2 Lf of tetanus toxoid and 2 Lf of diphtheria toxoid) Da Ocampo MD Work Phone: [facility] Work Phone: 07-05-2017 tetanus toxoid, redu luz marina diphtheria toxoid, and acellular pertussis vaccine, adsorbed Da Ocampo MD Work Phone: [facility] 12-10-2013 TD(adult) unspecifie d formulation Da Ocampo MD Work Phone: [facility] 10-20-2006 tetanus and diphther ia toxoids, adsorbed, preservative free, for adult use (2 Lf of tetanus toxoid and 2 Lf of diphtheria toxoid) Da Ocampo MD Work Phone: [facility] 09-30-2006 tetanus and diphther ia toxoids, adsorbed, preservative free, for adult use (2 Lf of tetanus toxoid and 2 Lf of diphtheria toxoid) Da Ocampo MD Work Phone: [facility] Work Phone: 02-22-2006 influenza virus vacc ine, unspecified formulation Da Ocampo MD Work Phone: [facility] Work Phone: 02-22-2006 pneumococcal polysaccharide vaccine, 23 valent Da Ocampo MD Work Phone: [facility] Work Phone: 02-22-2006 pneumococcal vaccine , unspecified formulation Da Ocampo MD Work Phone: [facility] 09-23-1994 tetanus and diphther ia toxoids, adsorbed, preservative free, for adult use (2 Lf of tetanus toxoid and 2 Lf of diphtheria toxoid) Da Ocampo MD Work Phone: [facility] Payers Date Payer Category Payer [employer] ( and others) [id number] 2022 Unknown FOR LIFE [id number] 2022-Present [phone] [address] [place] [address] Indemnity [id number] 2018 Unknown FOR LIFE [id number] 2018-Present [phone] [address] [place] [address] Indemnity [id number] 2001 Medicare MEDICARE MEDICAR E A AND B [id number] 2001-Present [phone] [address] [address] [place] [address] Medicare [id number] 2001 Medicare MEDICARE MEDICAR E A AND B [id number] 2001-Present [phone] [place] [address] Medicare [id number] 2001 Medicare [id number] Social History Date Type Detail Facility Start: 07-17-2017 End: 04-04-2022 Tobacco smoking status NHIS Never smoked tobacco [facility] Start: 05-05-2021 End: 01-21-2023 Alcohol intake Current non-drinker of alcohol (finding) [facility] Start: 10-09-2018 History SDOH Social Connections Phone 5 [facility] Start: 10-09-2018 History SDOH Social Connections Living 3 [facility] Start: 11-19-2019 History SDOH Food Worry 1 [facility] Start: 11-19-2019 History SDOH Transpo rt Med 2 [facility] Start: 1935 Sex Assigned At Not on file C [facility] Start: 04-02-2021 End: 07-25-2021 Exposure to SARS-CoV-2 (event) Not sure [facility] Start: 07-17-2017 End: 04-04-2022 Tobacco use and exposure Smokeless tobacco non-user [facility] Start: 10-09-2018 End: 08-07-2022 History of Social function [facility] Start: 10-09-2018 End: 08-07-2022 Social connection and isolation panel [facility] Attends Rastafari Services Not on file [facility] Work Phone: Are you now , , , , never or living with a partner? [facility] (I/We) worried wheth er (my/our) food would run out before (I/we) got money to buy more. Never true [facility] Work Phone: Start: 05-04-2020 Gender identity Identifies as female gender (finding) [facility] Start: 05-04-2020 Sexual orientation Heterosexual (dena matias) [facility] Medical Equipment Procedure Code Equipment Code Equipment Origin al Text Equipment Identifier Dates [employer] [facility] Tis 8x5 mm Ttplst - [id number] Start: 01-31-2012 Goals Date Patient Goal Desired Activity /State Personal health goal Personal health goal Clinical Notes 01-19-2008 to 03-29-2023 Da Ocampo MD - 02/18/2023 9:00 AM ESTTelephone Encounter - Caridad Wong RN - 02/12/2023 4:56 PM ESTTelephone Encounter - Lisbet Springer LPN - 02/12/2023 3:36 PM EST Note Date & Type Note Facility 03-29-2023 Note HNO ID: [id number] Author: PHONG TREJO APRN.COMMUNICATIONS STATION MANAGER Service: ? 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 States this is the same [...] gram tablet Take (more content not included)... [facility] 02-18-2023 Note HNO ID: [id number] Author: Da Ocampo MD Service: ? Author [...] visit. Either the patient or their legal chemical sales representative has been informed of the [...] Take 1 tablet by mouth twice daily. YZVCXPMF-QDINPPVLO-DZTGOOAT 3.5 MG/ML-10,000 UNIT/ML-0.1% EYE DROPS Use 1 Drop in both eyes twice daily. vit C,S-Hd-uhvss-lutein-zeaxan (PRESERVISION AREDS-2) 250-90-40-1 mg Take 1 capsule [...] EPITHELIUM W/APPL C (more content not included)... [facility] 02-18-2023 History of Present illness Narrative Patient [...] visit. Either the patient or their legal chemical sales representative has been informed of the [...] Take 1 tablet by mouth twice daily. YYZKMTRG-UCTHRNNNR-HEWNZHQY 3.5 MG/ML-10,000 UNIT/ML-0.1% EYE DROPS Use 1 Drop in both eyes twice daily. vit C,I-Sz-kwpfw-lutein-zeaxan (PRESERVISION AREDS-2) 250-90-40-1 mg Take 1 capsule [...] with more than 50% of the total cxxo-ws-plse time of the visit in counseling / coordination of care. Da Ocampo documented in this encounter [facility] 02-12-2023 Note HNO ID: [id number] Author: Da Ocampo MD Service: ? Author Type: Physician Type: Progress Notes Filed: 02/12/2023 3:12 PM Note Text: Attempted to call multiple times over 10 minute period. Was busy. Unable to connect via virtual. [facility] 02-12-2023 Miscellaneous Notes Patient called in. States [...] will need rescheduled. documented in this encounter [facility] 02-12-2023 History of Present illness Narrative Attempted to call multiple times over 10 minute period. Was busy. Unable to connect via virtual. documented in this encounter [facility] 02-11-2023 Miscellaneous Notes Called patient but [...] thought in December. documented in this encounter [facility] 02-11-2023 Miscellaneous Notes Called patient but [...] advise RADHA Espinoza documented in this encounter [facility] 02-08-2023 Miscellaneous Notes Spoke with patient [...] reply. Thank you. documented in this encounter [facility] 02-06-2023 Miscellaneous Notes LISETTE-11/16/22 Labs-11/16/22 NOV-02/12/23 Pharm. stated Pt has no refills and needs new Rx Bette Small LPN documented in this encounter [facility] 01-21-2023 Note HNO ID: [id number] Author: Kevin Fox MD Service: ? Author Type: Physician Type: Progress Notes Filed: 01/21/2023 5:17 PM Note Text: Kevin Fox MD Interventional Cardiology [address] [place] [address] Chief Complaint Patient presents with: New Patient [...] Take 1 tablet by mouth twice daily. FJHKXUIT-MRUGINXZF-BPWVAAWE 3.5 MG/ML-10,000 UNIT/ML-0.1% EYE DROPS Use 1 Drop in both eyes twice daily. vit C,Z-Lz-xjbcv-lutein-zeaxan (PRESERVISION AREDS-2) 250-90-40-1 m (more content not included)... [facility] 01-21-2023 History of Present illness Narrative Images from the original note were not included. Kevin Fox MD Interventional Cardiology [address] [place] [address] Chief Complaint Patient presents with: New Patient [...] Take 1 tablet by mouth twice daily. RWGSKHLO-ORAGDQXEC-FRDQXDGM 3.5 MG/ML-10,000 UNIT/ML-0.1% EYE DROPS Use 1 Drop in both eyes twice daily. vit C,M-Ag-wffaq-lutein-zeaxan (PRESERVISION AREDS-2) 250-90-40-1 mg Take 1 capsule [...] correct any errors. documented in this encounter [facility] 12-12-2022 Note HNO ID: [id number] Author: Jerry Nugent MD Service: ? Author [...] of its relevant components. Jerry Nugent MD [facility] 12-07-2022 Note HNO ID: [id number] Author: Rigo Abreu, EVER Service: ? Author Type: WATER SERVICE SUPERVISOR Type: Progress Notes Filed: 12/07/2022 4:21 PM [...] Abreu, OD December 07, 2022 4:20 PM [facility] 12-07-2022 History of Present illness Narrative 1. [...] 2022 4:20 PM documented in this encounter [facility] 12-07-2022 Miscellaneous Notes Patient scheduled with [...] This patient just underwent corneal surgery at [facility] on 12/04/2022. I pasted below the PSR's [...] week as well. documented in this encounter [facility] documented as of this encounter (statuses as of 12/07/2022) [facility]09-12-2023 History of Past illness Narrative* Problem [...] of this encounter (statuses as of 12/08/2022) [facility] History of Past illness Narrative* Problem [...] of this encounter (statuses as of 01/22/2023) [facility] History of Past illness Narrative* Problem [...] of this encounter (statuses as of 02/06/2023) [facility] History of Past illness Narrative* Problem [...] of this encounter (statuses as of 02/08/2023) [facility] History of Past illness Narrative* Problem [...] of this encounter (statuses as of 02/11/2023) [facility] History of Past illness Narrative* Problem [...] of this encounter (statuses as of 02/13/2023) [facility] History of Past illness Narrative* Problem [...] of this encounter (statuses as of 02/13/2023) [facility] History of Past illness Narrative* Problem [...] of this encounter (statuses as of 02/18/2023) [facility]08-25-2023 NoteHNO ID: [id number] Author: Da Ocampo MD Service: ? Author [...] medication. Looks like from scanned document to [employer]. Is for OAB Sore on bottom is [...] Take 1 tablet by mouth twice daily. PEBUDTPF-NMBSEKIZA-UYRKEJLF 3.5 MG/ML-10,000 UNIT/ML-0.1% EYE DROPS Use 1 Drop in both eyes twice daily. vit C,B-Vg-iojyu-lutein-zeaxan (PRESERVISION AREDS-2) 250-90-40-1 mg Take 1 capsule [...] Hyperlipidemia Other and un (more content not included)...[facility]08-25-2023 History of Present illness Narrative* Da Ocampo MD - 11/16/2022 1:13 PM EDT Patient presents with: Pre-Op Exam HPI: Patient presents today for office visit for preop. Scheduled for eye surgery on 12/04. Having:REMOVE CORNEAL EPITHELIUM W/ APPLICATION OF CHELATION by Dr. Nugent. Is on a new medication from urology and not sure of name of medication. Looks like from scanned document to [employer]. Is for OAB Sore on bottom is [...] Take 1 tablet by mouth twice daily. SOOCFSTJ-PPDHRYQEP-JTZCIYVN 3.5 MG/ML-10,000 UNIT/ML-0.1% EYE DROPS Use 1 Drop in both eyes twice daily. vit C,W-Jv-zpjot-lutein-zeaxan (PRESERVISION AREDS-2) 250-90-40-1 mg Take 1 capsule [...] weeks Da Ocampo MD [facility] Miscellaneous Notes* Telephone Encounter - Ne Kelsey - 10/30/2022 1:08 PM EDT Patient has been scheduled for 12/04/[address] Nugent in [place] * Telephone Encounter - Aleja Castanon RN - 10/19/2022 2:25 PM EDT Patient is inquiring about setting up surgery in [place]. Aleja Castanon RN October 19, 2022 2:26 PM documented [facility] Miscellaneous Notes* Telephone Encounter - Ne Kelsey - 10/24/2022 1:47 PM EDT Called patient to schedule chelation left eye with Dr. Jerry Nugent at the [place] location. Patient states she needs to have it done, but she's not able to see to write anything down, and asked me to call her daughter, Josey to schedule it. I did offer her 11/21/22 or 12/04 22. Patient states she prefers 12/04/22, but to check with her daughter about the dates. Per Epic notes, the cell phone number of [phone] is for Josey, so I called this number but got a voicemail for Zo. I left a message for Josey to call me back and schedule the surgery on behalf of the patient. (Per Patient contact numbers, Josey's phone number is actually [phone]. I called it and left a voicemail explaining that the patient asked me to contact her to schedule hersurgery and that I also left a voicemail for Zo. Requested a call back from either one to assist with patient scheduling. [facility] Miscellaneous Notes* Telephone Encounter - Luisito [...] know the name of the medication. [employer] Alden. 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 Also wants to know if she has to taking her levothyroxine alone or can she take other meds with it at the same time? Please advise at [phone] documented in [facility] encounterMer[facility]07-[facility]-2023 NoteHNO ID: [id number] Author: Jerry Nugent MD Service: ? Author [...] Jerry Nugent MD October 17, 2022 10:56 [facility]07-19-2023 Miscellaneous Notes* Telephone Encounter - Katharine [...] the pharmacy. Katharine Weathers documented in [facility]Mer[facility]05-[facility]-2023 NoteHNO ID: [id number] Author: Da Ocampo MD Service: ? Author Type: Physician Type: Progress Notes Filed: 07/23/2022 2:52 PM Note Text: Patient presents with: ER F/U HPI: Patient presents today for office visit for ER F/U. Went to [facility] ER on 07/18/22 due to generalized weakness. Dx with UTI and given Macrobid. Abx completed. Her work up was otherwise ok. Went back to [facility] on 07/22/22 due to not feeling good [...] Take 1 tablet by mouth twice daily. TBGERRBQ-KVMGJKINZ-KDFGCVQK 3.5 MG/ML-10,000 UNIT/ML-0.1% EYE DROPS Use 1 Drop in both eyes twice daily. vit C,H-Er-vynrx-lutein-zeaxan (PRESERVISION AREDS-2) 250-90-40-1 mg Take 1 capsule [...] 04/04/2022 76.2 kg (168 (more content not included)...[facility] 07-23-2022 History of Present illness Narrative* Da Ocampo MD - 07/23/2022 2:20 PM EDT Patient presents with: ER F/U HPI: Patient presents today for office visit for ER F/U. Went to [facility] ER on 07/18/22 due to generalized weakness. Dx with UTI and given Macrobid. Abx completed. Her work up was otherwise ok. Went back to [facility] on 07/22/22 due to not feeling good [...] Take 1 tablet by mouth twice daily. QMXTNDFF-SYEZVGOQG-GMJPPOZT 3.5 MG/ML-10,000 UNIT/ML-0.1% EYE DROPS Use 1 Drop in both eyes twice daily. vit C,X-Ca-hneak-lutein-zeaxan (PRESERVISION AREDS-2) 250-90-40-1 mg Take 1 capsule [...] BLD Da Ocampo MD documented in [facility]23 Miscellaneous Notes* Telephone Encounter - Mary Jodran RN - 05/30/2022 4:45 PM EST Patient has been identified by name and date of : Yes, Mary Jordan RN Date 05/30/2022 Time 4:46 pm [...] you. Mary Jordan RN documented in this encounterMer[facility]01-26-2023 Miscellaneous Notes* Telephone Encounter - Macarena [...] notify patient. Macarena Reyes documented in this encounterMer[facility]01-16-2023 Miscellaneous Notes* Telephone Encounter - Charlotte [...] advise, Shawna Looney RN documented in this encounterMer[facility]01-16-2023 Miscellaneous Notes* Telephone Encounter - Tonya [...] patient. Tonya Alarcon Pss documented in this encounterMer[facility]01-11-2023 NoteHNO ID: [id number] Author: Da Ocampo MD Service: ? Author [...] Take 1 tablet by mouth twice daily. UTZMEEZH-MWRASOKAA-VITZWCUM 3.5 MG/ML-10,000 UNIT/ML-0.1% EYE DROPS Use 1 Drop in both eyes twice daily. vit C,E-Jr-uojvi-lutein-zeaxan (PRESERVISION AREDS-2) 250-90-40-1 mg Take 1 capsule [...] Topics Alcohol use: N (more content not included)...[facility] 04-04-2022 History of Present illness Narrative* Da [...] Take 1 tablet by mouth twice daily. IRNEKEEW-HFGTTQPUC-VDGLTXUO 3.5 MG/ML-10,000 UNIT/ML-0.1% EYE DROPS Use 1 Drop in both eyes twice daily. vit C,O-Xo-nnivj-lutein-zeaxan (PRESERVISION AREDS-2) 250-90-40-1 mg Take 1 capsule [...] TABLET Da Ocampo MD documented in [facility] encounterMer[facility] History of Past illness Narrative* Problem [...] of this encounter (statuses as of 04/05/2022) [facility] History of Past illness Narrative* Problem [...] of this encounter (statuses as of 04/09/2022) [facility] of Past illness Narrative* Problem [...] of this encounter (statuses as of 04/09/2022) [facility] History of Past illness Narrative* Problem [...] of this encounter (statuses as of 04/19/2022) [facility] History of Past illness Narrative* Problem [...] of this encounter (statuses as of 05/31/2022) [facility] of Past illness Narrative* Problem [...] of this encounter (statuses as of 07/24/2022) [facility] of Past illness Narrative* Problem [...] of this encounter (statuses as of 10/11/2022) [facility] of Past illness Narrative* Problem [...] of this encounter (statuses as of 10/24/2022) [facility] of Past illness Narrative* Problem [...] of this encounter (statuses as of 10/30/2022) [facility] of Past illness Narrative* Problem [...] of this encounter (statuses as of 11/16/2022) [facility]01-06-2023 Miscellaneous Notes* Telephone Encounter - Robson [...] - 03/30/2022 11:18 AM EST Cecy with [facility] nursing calling for clarification on Potassium and Preservation. Pt has instructed her she is not taking these. Please advise Cecy. Althea Herrera LPN documented in this encounterMer[facility]01[facility]-2023 Miscellaneous Notes* Telephone Encounter - Da Ocampo MD - 03/29/2022 4:55 PM EST noted * Telephone Encounter - Althea Herrera LPN - 03/29/2022 4:09 PM EST Joaquina with [facility], PT calling with plan of care. They will see pt 1 time a week for 1 week, then2 times a week for 4 weeks for strengthening, gait, transfers and fall prevention. No call back needed Althea Herrera LPN documented in this encounterMer[facility]01-04-2023 Miscellaneous Notes* Telephone Encounter - Yas Gamble Ma - 03/28/2022 11:49 AM EST Order faxed to [facility], verbal order given to Sandy * Telephone Encounter - Melvina Thomas RN - 03/28/2022 11:15 AM EST Sandy from [facility] called in and reports Pt was admitted to [facility] on 03/23/22 for a small bowel obstruction [...] is a confidential line. documented in this encounterMercy [facility]07-27-2022 Miscellaneous Notes* Telephone Encounter - Tricia [...] you. Tricia Posada RN documented in this encounterMercy Health [facility]07-19-2022 Miscellaneous Notes* Telephone Encounter - Joaquina Reyes - 10/10/2021 4:39 PM EDT Patient needs her levothyroxine sent to the [facility] in [place]. no [place] covers through [employer]. * Telephone Encounter - Joaquina Woo Pss [...] advise. Joaquina Woo Pss documented in this encounterMercy Health [facility]06-10-2022 Miscellaneous Notes* Telephone Encounter - Robson [...] to the pharmacy. Please call patient at: [phone] Macarena Santosdoug Vargashl Pss documented in this encounterMercy Health [facility]06-10-2022 Miscellaneous Notes* Telephone Encounter - Robson [...] patient. Macarenadoug Vargasheather Reyes documented in this encounterMercy Health [facility]05-20-2022 Miscellaneous Notes* Telephone Encounter - Tonya [...] Recommend to see cardiology documented in this encounterMercy Health [facility]05-12-2022 Miscellaneous Notes* Telephone Encounter - Yas Gamble Ma - 08/03/2021 1:07 PM EDT Patient was made aware of the results. Patient verbalizes understanding. Yas Gamble Ma * Telephone Encounter - Da Ocampo MD - 08/03/2021 11:20 AM EDT Labs stable. Slightly anemic, could still be recovering from surgery but recheck labs to be on [facility] in one week documented in this encounterMercy Health [facility] Hospital05-03-2022 Miscellaneous Notes* Telephone Encounter - Melvina [...] Antonio. Please advise pt. documented in this encounterMercy Health [facility] Hospital04-26-2022 Miscellaneous Notes* Telephone Encounter - Lisbet [...] do. Althea Herrera LPN documented in this encounterMercy Health [facility]04-18-2022 History of Present illness Narrative* Jessie [...] 10, 2021 4:24 PM documented in this encounterMercy Health [facility] Hospital04-17-2022 Miscellaneous Notes* Telephone Encounter - Cadence Herrera LPN - 07/09/2021 12:06 PM EDT Phone call placed prior, Pre[employer] active 07/08/21, message sent with updated results. Cadence Herrera LPN * Telephone Encounter - Cadence Herrera LPN - 07/07/2021 9:13 AM EDT Phone call placed brief message to contact a nurse. Cadence Herrera LPN * Telephone Encounter - Cadence Herrera LPN - 07/07/2021 9:11 AM EDT ----- Message from Rachna Garcia APRN.COMMUNICATIONS STATION MANAGER sent at 07/06/2021 8:19 PM EDT ----- Please advise patient the radiologist sees a possible old fracture at the base of the distal fibula. This is not likely causing her pain, however I would like her to follow up with podiatry so he canevaluate the xrays. Referral entered. Rachna Garcia APRN.COMMUNICATIONS STATION MANAGER documented in this encounterMercy Health Defiance Hospital04-14-2022 Miscellaneous Notes* Telephone Encounter - Tonya [...] Take 1 tablet by mouth once daily. UGRMEET: No RX INSTRUCTIONS: Patient aware RX will be sent to pharmacy. No need to notify patient. Ciera Reeves documented in this encounterMercy Health [facility]04-13-2022 Miscellaneous Notes* Telephone Encounter - Zoila [...] you. Melvina Thomas RN documented in this encounterMercy Health [facility]10-27-2008 History of Past illness Narrative* Problem Noted Date Resolved Date Sprain and strain of unspeci fied site of shoulder and upper arm 01/19/2008 02/11/2020 Hypothyroidism, acquired 09/11/2005 020 Abdominal pain, left lower quadrant 10/22/2017 documented as of this encounter (statuses as of 07/05/2021) [facility] History of Past illness Narrative* Problem Noted Date Resolved Date Sprain and strain of unspeci fied site of shoulder and upper arm 01/19/2008 02/11/2020 Hypothyroidism, acquired 09/11/2005 020 Abdominal pain, left lower quadrant 10/22/2017 documented as of this encounter (statuses as of 07/05/2021) [facility] of Past illness Narrative* Problem Noted Date Resolved Date Sprain and strain of unspeci fied site of shoulder and upper arm 01/19/2008 02/11/2020 Hypothyroidism, acquired 09/11/2005 020 Abdominal pain, left lower quadrant 10/22/2017 documented as of this encounter (statuses as of 07/06/2021) [facility] of Past illness Narrative* Problem Noted Date Resolved Date Sprain and strain of unspeci fied site of shoulder and upper arm 01/19/2008 02/11/2020 Hypothyroidism, acquired 09/11/2005 020 Abdominal pain, left lower quadrant 10/22/2017 documented as of this encounter (statuses as of 07/09/2021) [facility] History of Past illness Narrative* Problem Noted Date Resolved Date Sprain and strain of unspeci fied site of shoulder and upper arm 01/19/2008 02/11/2020 Hypothyroidism, acquired 09/11/2005 020 Abdominal pain, left lower quadrant 10/22/2017 documented as of this encounter (statuses as of 07/10/2021) [facility] of Past illness Narrative* Problem Noted Date Resolved Date Sprain and strain of unspeci fied site of shoulder and upper arm 01/19/2008 02/11/2020 Hypothyroidism, acquired 09/11/2005 020 Abdominal pain, left lower quadrant 10/22/2017 documented as of this encounter (statuses as of 07/18/2021) [facility] of [facility] illness Narrative* Problem Noted Date Resolved Date Sprain and strain of unspeci fied site of shoulder and upper arm 01/19/2008 02/11/2020 Hypothyroidism, acquired 09/11/2005 020 Abdominal pain, left lower quadrant 10/22/2017 documented as of this encounter (statuses as of 07/25/2021) [facility] of [facility] illness Narrative* Problem Noted Date Resolved Date Sprain and strain of unspeci fied site of shoulder and upper arm 01/19/2008 02/11/2020 Hypothyroidism, acquired 09/11/2005 020 Abdominal pain, left lower quadrant 10/22/2017 documented as of this encounter (statuses as of 08/03/2021) [facility] of [facility] illness Narrative* Problem Noted Date Resolved Date Sprain and strain of unspeci fied site of shoulder and upper arm 01/19/2008 02/11/2020 Hypothyroidism, acquired 09/11/2005 020 Abdominal pain, left lower quadrant 10/22/2017 documented as of this encounter (statuses as of 08/11/2021) [facility] of [facility] illness Narrative* Problem Noted Date Resolved Date Sprain and strain of unspeci fied site of shoulder and upper arm 01/19/2008 02/11/2020 Hypothyroidism, acquired 09/11/2005 020 Abdominal pain, left lower quadrant 10/22/2017 documented as of this encounter (statuses as of 09/01/2021) [facility] of [facility] illness Narrative* Problem Noted Date Resolved Date Sprain and strain of unspeci fied site of shoulder and upper arm 01/19/2008 02/11/2020 Hypothyroidism, acquired 09/11/2005 020 Abdominal pain, left lower quadrant 10/22/2017 documented as of this encounter (statuses as of 09/01/2021) [facility] Narrative* Problem Noted Date Resolved Date Sprain and strain of unspeci fied site of shoulder and upper arm 01/19/2008 02/11/2020 Hypothyroidism, acquired 09/11/2005 020 Abdominal pain, left lower quadrant 10/22/2017 documented as of this encounter (statuses as of 10/10/2021) [facility] Narrative* Problem Noted Date Resolved Date Sprain and strain of unspeci fied site of shoulder and upper arm 01/19/2008 02/11/2020 Hypothyroidism, acquired 09/11/2005 020 Abdominal pain, left lower quadrant 10/22/2017 documented as of this encounter (statuses as of 10/18/2021) [facility] Narrative* Problem Noted Date Resolved Date Sprain and strain of unspeci fied site of shoulder and upper arm 01/19/2008 02/11/2020 Hypothyroidism, acquired 09/11/2005 020 Abdominal pain, left lower quadrant 10/22/2017 documented as of this encounter (statuses as of 03/30/2022) [facility] Narrative* Problem Noted Date Resolved Date Sprain and strain of unspeci fied site of shoulder and upper arm 01/19/2008 02/11/2020 Hypothyroidism, acquired 09/11/2005 020 Abdominal pain, left lower quadrant 10/22/2017 documented as of this encounter (statuses as of 03/30/2022) [facility] illness Narrative* Problem Noted Date Resolved Date Sprain and strain of unspeci fied site of shoulder and upper arm 01/19/2008 02/11/2020 Hypothyroidism, acquired 09/11/2005 020 Abdominal pain, left lower quadrant 10/22/2017 documented as of this encounter (statuses as of 03/31/2022) [facility] Diagnosis Hypothyroidism, acquired Unspecified hypothyroidism Edema, unspecified type [facility] Diagnosis Anemia, unspecified type- Primary [facility]* Diagnosis Aortic valve stenosis, etiology of cardiac valve disease unspecified- Primary documented in this encounter [facility]* Diagnosis Recurrent major depressive disorder, in remission (HCC) documented in this encounter [facility] note* Diagnosis Hypothyroidism, acquired Unspecified hypothyroidism documented in this encounter [facility] note* Diagnosis Edema, unspecified type documented in this encounter [facility] note* Diagnosis SBO (small bowel obstruction) ([facility])- Primary Unspecified intestinal obstruction documented in this encounter [facility] note* Diagnosis Essential hypertension, benign- Primary Mixed [...] acquired Unspecified hypothyroidism documented in this encounter [facility] note* Diagnosis Recurrent major depressive disorder, in remission (HCC) documented in this encounter [facility] note* Diagnosis Edema, unspecified type documented in this encounter [facility] note* Diagnosis Recurrent UTI (urinary tract infection)- Primary Urinary tract infection, site not specified Nonrheumatic aortic valve stenosis Aortic valve disorders Essential hypertension, benign Mixed hyperlipidemia Controlled type 2 diabetes mellitus without complication, without long-term current use of insulin (HCC) Hypothyroidism, unspecified type documented in this encounter [facility] note* Diagnosis Decreased vision- Primary Unspecified visual [...] Band keratopathy, left documented [facility] encounter [facility]* Diagnosis Band keratopathy, 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) documented in this encounter [facility]* Diagnosis Nonrheumatic aortic valve stenosis- Primary Aortic valve disorders Aortic valve disorder Aortic valve disorders Essential hypertension, benign documented [facility] this [facility]* Diagnosis Hypothyroidism, acquired Unspecified hypothyroidism documented in this encounter [facility]* Diagnosis NO SHOW- Primary [facility]* Diagnosis Anxiety- Primary Anxiety state, unspecified documented in this encounter [facility] for referral (narrative)* Outpatient Procedure (Routine) - Authorized Specialty Diagnoses / Procedures Referred By Nell arthur Referred To [facility] Diagnoses Nonrheumatic aortic valve stenosis Procedures ECHO ECHO TTHRC R-T 2D W/WOM-MODE COMPL SPEC&COLR D Da Ocampo MD [address] [place] [address] [facility] [place] [address] [place] [address] Referral ID Status Reason Start Date Expiration Date Visits Requested Visits Authorized [id number] Authorized Auto-Generat ed Referral 07/23/2022 07/23/2023 1 1 * Consult, Test, Treat (Routine) - Authorized Specialty Diagnoses / Procedures Referred By Nell arthur Referred To Contact Urology Diagnoses Recurrent UTI (urinary tract infection) Procedures CONSULT TO UROLOGY OFFICE/OUTPATIENT [facility] 60-74 MINUTES Da Ocampo MD [address] [place] [address] Referral ID Status Reason Start Date Expiration Date Visits Requested Visits Authorized [id number] Authorized PCP Requested Referral 07/23/2022 07/23/2023 1 1 [facility] for referral (narrative)* Outpatient Procedure (Routine) - Pending Review Specialty Diagnoses / Procedures Referred By Contac t Referred To Contact [facility] [place] Diagnoses Nonrheumatic aortic valve stenosis Procedures ECHO ECHO TTHRC R-T 2D W/WOM-MODE COMPL SPEC&COLR D Kevin Fox MD [address] [place] [address] Fax: [facility] [address] [place] [id number] Referral ID Status Reason Start Date Expiration Date Visits Requested Visits Authorized [id number] Pending Review Auto-Generat ed Referral 07/23/2023 01/21/2024 1 1 * Outpatient Procedure (Routine) - Pending Review Specialty Diagnoses / Procedures Referred By Contac t Referred To Contact [facility] Diagnoses Screening for ischemic heart disease Procedures ECG COMPLETE ECG ROUTINE ECG W/LEAST 12 LDS W/I&R Kevin Fox MD [address] [place] [address] [facility] [address] [place] [address] Referral ID Status Reason Start Date Expiration Date Visits Requested Visits Authorized [id number] Pending Review Auto-Generat ed Referral 3 01/14/2024 1 1 [facility] Reason for Referral Specialty Diagnoses / Procedures Referred By Contac t Referred To Contact Cardiology Diagnoses Aortic valve stenosis, etiology of cardiac valve disease unspecified Procedures CONSULT TO CARDIOLOGY OFFICE/OUTPATIENT [facility] MDM 60-74 MINUTES Da Ocampo MD [address] [place] [id number] Referral ID Status Reason Start Date Expiration Date Visits Requested Visits Authorized [id number] Authorized PCP Requested Referral 08/08/2021 08/08/2022 1 1 Specialty Diagnoses / Procedures Referred By Contac t Referred To Contact [facility] Diagnoses SBO (small bowel obstruction) ([facility]) Procedures CONSULT TO PHYSICAL THERAPY PHYSICAL THERAPY EVALUATION [facility] 45 MINS Da Ocampo MD [address] [place] [address] [facility] [place] [address] [place] [id number] Referral ID Status Reason Start Date Expiration Date Visits Requested Visits Authorized [id number] Authorized PCP Requested Referral Auto-Generate d Referral 03/28/2022 03/28/2023 99 99 Specialty Diagnoses / Procedures Referred By Contac t Referred To Contact Cardiology Diagnoses Nonrheumatic aortic valve stenosis Procedures CONSULT TO CARDIOLOGY OFFICE/OUTPATIENT [facility] 60-74 MINUTES Da Ocampo MD [address] [place] [address] Referral ID Status Reason Start Date Expiration Date Visits Requested Visits Authorized [id number] Authorized PCP Requested Referral 04/04/2022 04/04/2023 1 1 Specialty Diagnoses / Procedures Referred By Contac t Referred [facility] Diagnoses Edema, unspecified type Localized swelling, mass and lump, left lower limb Procedures US LEG VEIN DVT UNL VAS LAB DUP-SCAN XTR VEINS UNILATERAL/LIMITED STUDY Da Ocampo MD [address] [place] [address] [facility] [place] [address] [place] [id number] Referral ID Status Reason Start Date Expiration Date Visits Requested Visits Authorized [id number] Authorized Auto-Generat ed Referral 04/04/2022 04/04/2023 1 [...] or prosecute any alcohol or drug abuse patient.[facility] HospitalIn the event this information is protected by the Federal Confidentiality of Alcohol and Drug Abuse Patient Records regulations: The Federal rules restrict any use of the information to criminally investigate or prosecute any alcohol or drug abuse patient.[facility] HospitalIn the event this information is protected by the Federal Confidentiality of Alcohol and Drug Abuse Patient Records regulations: The Federal rules restrict any use of the information to criminally investigate or prosecute any alcohol or drug abuse patient.[facility] HospitalIn the event this information is protected by the Federal Confidentiality of Alcohol and Drug Abuse Patient Records regulations: The Federal rules restrict any use of the information to criminally investigate or prosecute any alcohol or drug abuse patient.[facility] HospitalIn the event this information is protected by the Federal Confidentiality of Alcohol and Drug Abuse Patient Records regulations: The Federal rules restrict any use of the information to criminally investigate or prosecute any alcohol or drug abuse patient.[facility] HospitalIn the event this information is protected by the Federal Confidentiality of Alcohol and Drug Abuse Patient Records regulations: The Federal rules restrict any use of the information to criminally investigate or prosecute any alcohol or drug abuse patient.[facility] HospitalIn the event this information is protected by the Federal Confidentiality of Alcohol and Drug Abuse Patient Records regulations: The Federal rules restrict any use of the information to criminally investigate or prosecute any alcohol or drug abuse patient.[facility] HospitalIn the event this information is protected by the Federal Confidentiality of Alcohol and Drug Abuse Patient Records regulations: The Federal rules restrict any use of the information to criminally investigate or prosecute any alcohol or drug abuse patient.[facility] HospitalIn the event this information is protected by the Federal Confidentiality of Alcohol and Drug Abuse Patient Records regulations: The Federal rules restrict any use of the information to criminally investigate or prosecute any alcohol or drug abuse patient.[facility] HospitalIn the event this information is protected by the Federal Confidentiality of Alcohol and Drug Abuse Patient Records regulations: The Federal rules restrict any use of the information to criminally investigate or prosecute any alcohol or drug abuse patient.[facility] HospitalIn the event this information is protected by the Federal Confidentiality of Alcohol and Drug Abuse Patient Records regulations: The Federal rules restrict any use of the information to criminally investigate or prosecute any alcohol or drug abuse patient.[facility] HospitalIn the event this information is protected by the Federal Confidentiality of Alcohol and Drug Abuse Patient Records regulations: The Federal rules restrict any use of the information to criminally investigate or prosecute any alcohol or drug abuse patient.[facility] HospitalIn the event this information is protected by the Federal Confidentiality of Alcohol and Drug Abuse Patient Records regulations: The Federal rules restrict any use of the information to criminally investigate or prosecute any alcohol or drug abuse patient.[facility] HospitalIn the event this information is protected by the Federal Confidentiality of Alcohol and Drug Abuse Patient Records regulations: The Federal rules restrict any use of the information to criminally investigate or prosecute any alcohol or drug abuse patient.[facility] HospitalIn the event this information is protected by the Federal Confidentiality of Alcohol and Drug Abuse Patient Records regulations: The Federal rules restrict any use of the information to criminally investigate or prosecute any alcohol or drug abuse patient.[facility] HospitalIn the event this information is protected by the Federal Confidentiality of Alcohol and Drug Abuse Patient Records regulations: The Federal rules restrict any use of the information to criminally investigate or prosecute any alcohol or drug abuse patient.[facility] HospitalIn the event this information is protected by the Federal Confidentiality of Alcohol and Drug Abuse Patient Records regulations: The Federal rules restrict any use of the information to criminally investigate or prosecute any alcohol or drug abuse patient.[facility] HospitalIn the event this information is protected by the Federal Confidentiality of Alcohol and Drug Abuse Patient Records regulations: The Federal rules restrict any use of the information to criminally investigate or prosecute any alcohol or drug abuse patient.[facility] HospitalIn the event this information is protected by the Federal Confidentiality of Alcohol and Drug Abuse Patient Records regulations: The Federal rules restrict any use of the information to criminally investigate or prosecute any alcohol or drug abuse patient.[facility] HospitalIn the event this information is protected by the Federal Confidentiality of Alcohol and Drug Abuse Patient Records regulations: The Federal rules restrict any use of the information to criminally investigate or prosecute any alcohol or drug abuse patient.[facility] HospitalIn the event this information is protected by the Federal Confidentiality of Alcohol and Drug Abuse Patient Records regulations: The Federal rules restrict any use of the information to criminally investigate or prosecute any alcohol or drug abuse patient.[facility] HospitalIn the event this information is protected by the Federal Confidentiality of Alcohol and Drug Abuse Patient Records regulations: The Federal rules restrict any use of the information to criminally investigate or prosecute any alcohol or drug abuse patient.[facility] HospitalIn the event this information is protected by the Federal Confidentiality of Alcohol and Drug Abuse Patient Records regulations: The Federal rules restrict any use of the information to criminally investigate or prosecute any alcohol or drug abuse patient.[facility] HospitalIn the event this information is protected by the Federal Confidentiality of Alcohol and Drug Abuse Patient Records regulations: The Federal rules restrict any use of the information to criminally investigate or prosecute any alcohol or drug abuse patient.[facility] [facility] HospitalIn the event this information is protected by the Federal Confidentiality of Alcohol and Drug Abuse Patient Records regulations: The Federal rules restrict any use of the information to criminally investigate or prosecute any alcohol or drug abuse patient.[facility] HospitalIn the event this information is protected by the Federal Confidentiality of Alcohol and Drug Abuse Patient Records regulations: The Federal rules restrict any use of the information to criminally investigate or prosecute any alcohol or drug abuse patient.[facility] HospitalIn the event this information is protected by the Federal Confidentiality of Alcohol and Drug Abuse Patient Records regulations: The Federal rules restrict any use of the information to criminally investigate or prosecute any alcohol or drug abuse patient.[facility] HospitalIn the event this information is protected by the Federal Confidentiality of Alcohol and Drug Abuse Patient Records regulations: The Federal rules restrict any use of the information to criminally investigate or prosecute any alcohol or drug abuse patient.[facility] HospitalIn the event this information is protected by the Federal Confidentiality of Alcohol and Drug Abuse Patient Records regulations: The Federal rules restrict any use of the information to criminally investigate or prosecute any alcohol or drug abuse patient.[facility] HospitalIn the event this information is protected by the Federal Confidentiality of Alcohol and Drug Abuse Patient Records regulations: The Federal rules restrict any use of the information to criminally investigate or prosecute any alcohol or drug abuse patient.[facility] HospitalIn the event this information is protected by the Federal Confidentiality of Alcohol and Drug Abuse Patient Records regulations: The Federal rules restrict any use of the information to criminally investigate or prosecute any alcohol or drug abuse patient.[facility] HospitalIn the event this information is protected by the Federal Confidentiality of Alcohol and Drug Abuse Patient Records regulations: The Federal rules restrict any use of the information to criminally investigate or prosecute any alcohol or drug abuse patient.[facility] HospitalIn the event this information is protected by the Federal Confidentiality of Alcohol and Drug Abuse Patient Records regulations: The Federal rules restrict any use of the information to criminally investigate or prosecute any alcohol or drug abuse patient.[facility] HospitalIn the event this information is protected by the Federal Confidentiality of Alcohol and Drug Abuse Patient Records regulations: The Federal rules restrict any use of the information to criminally investigate or prosecute any alcohol or drug abuse patient.[facility] HospitalIn the event this information is protected by the Federal Confidentiality of Alcohol and Drug Abuse Patient Records regulations: The Federal rules restrict any use of the information to criminally investigate or prosecute any alcohol or drug abuse patient.[facility] HospitalIn the event this information is protected by the Federal Confidentiality of Alcohol and Drug Abuse Patient Records regulations: The Federal rules restrict any use of the information to criminally investigate or prosecute any alcohol or drug abuse patient.[facility] HospitalIn the event this information is protected by the Federal Confidentiality of Alcohol and Drug Abuse Patient Records regulations: The Federal rules restrict any use of the information to criminally investigate or prosecute any alcohol or drug abuse patient.[facility] Reason for Visit (unrecogniz ed section and content) Reason Onset Date Comments Refill Request 07/06/2021 Reason Comments Results Reason Comments Patient Update Reason Comments Patient Update Questions Returning Patient's Call Reason Comments Results Reason Comments Prescription Refills Reason Onset Date Comments Refill Request 10/10/2021 Reason Onset Date Comments Refill Request 10/18/2021 Reason Comments Orders Reason Comments [facility], PT plan of care Reason Comments [facility] nursing clarification Reason Comments 6 Month Exam [...] valve stenosis Procedures CONSULT TO CARDIOLOGY OFFICE/OUTPATIENT [facility] 60-74 MINUTES Da Ocampo MD [address] [place] [address] Referral ID Status Reason Start Date Expiration Date V isits Requested Visits Authorized [id number] Closed PCP Requested Referral 04/04/2022 04/04/2023 1 1 Reason Onset Date Comments Refill Request 02/06/2023 Reason Comments Patient Question Patient Update Reason Comments Acute Visit Care Teams (unrecognized sec tion and content) Auto Service Instructor Relationship Specialty Start Date End Date Da Ocampo MD [address] [place], [place] [address] PCP - General Family Practice 07/17/17 Nahed Batista E [address] [address] Consulting Urology 03/17/19 [facility] 10/09/18 Auto Service Instructor Relationship Specialty Start Date End Date Da Ocampo MD [address] [place], [place] [address] PCP - General Family Practice 07/17/17 Nahed [facility] E 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 [address] [address] Consulting Urology 03/17/19 [facility] 10/09/18 Auto Service Instructor Relationship Specialty Start Date End Date Da Ocampo MD [address] [place], [place] [address] PCP - General Family Practice 07/17/17 Nahed Batista E [facility] [address] [address] Consulting Urology 03/17/19 [facility] 10/09/18 Auto Service Instructor Relationship Specialty Start Date End Date Da Ocampo MD [address] [place], [place] [address] PCP - General Family Practice 07/17/17 Nahed Batista E [place] [address] [address] Consulting Urology 03/17/19 [facility] 10/09/18 Auto Service Instructor Relationship Specialty Start Date End Date Da Ocampo MD [address] [place], [place] [address] PCP - General Family Practice 07/17/17 Nahed Batista E [facility] [address] [address] Consulting Urology 03/17/19 [facility] 10/09/18 Auto Service Instructor Relationship Specialty Start Date End Date Da Ocampo MD [address] [place] [place] [address] PCP - General Family Medicine 07/17/17 Nahed Batista E [address] [place] [address] Consulting Urology 03/17/19 [facility] 10/09/18 Auto Service Instructor Relationship Specialty Start Date End Date Da Ocampo MD [address] [facility] [place] [address] PCP - General Family Medicine 07/17/17 Nahed Batista E [address] [place] [address] Consulting Urology 03/17/19 [facility] 10/09/18 Auto Service Instructor Relationship Specialty Start Date End Date Da Ocampo MD [address] [facility], [place] [address] PCP - General Family Medicine 07/17/17 Nahed Batista [address] [facility] [address] [place] [address] Consulting Urology 03/17/19 [facility] 10/09/18 Auto Service Instructor Relationship Specialty Start Date End Date Da Ocampo MD [address] [facility] [place] [address] PCP - General Family Medicine 07/17/17 Nahed Batista E [address] [place] [address] Consulting Urology 03/17/19 [facility] 10/09/18 Auto Service Instructor Relationship Specialty Start Date End Date Da Ocampo MD [address] [facility], [place] [address] PCP - General Family Medicine 07/17/17 Nahed Batista [address] [facility] [address] [place] [address] Consulting Urology 03/17/19 [facility] 10/09/18 Auto Service Instructor Relationship Specialty Start Date End Date Da Ocampo MD [address] [facility], [place] [address] PCP - General Family Medicine 07/17/17 Nahed Batista [address] [place] [address] Consulting Urology 03/17/19 [facility] 10/09/18 Auto Service Instructor Relationship Specialty Start Date End Date Da Ocampo MD [address] [facility], [place] [address] PCP - General Family Medicine 07/17/17 Nahed Batista [address] [facility] [address] [place] [address] Consulting Urology 03/17/19 [facility] 10/09/18 Auto Service Instructor Relationship Specialty Start Date End Date Da Ocampo MD [address] [facility], [place] [address] PCP - General Family Medicine 07/17/17 Nahed Batista [address] [place] [address] Consulting Urology 03/17/19 [facility] 10/09/18 Auto Service Instructor Relationship Specialty Start Date End Date Da Ocampo MD [address] [facility] [place] [address] PCP - General Family Medicine 07/17/17 Nahed Batista [address] [place] [address] Consulting Urology 03/17/19 [facility] 10/09/18 Auto Service Instructor Relationship Specialty Start Date End Date Da Ocampo MD [address] [place] [address] PCP - General Family Medicine 07/17/17 Nahed Batista [address] [place] [address] Consulting Urology 03/17/19 [facility] 10/09/18 Auto Service Instructor Relationship Specialty Start Date End Date Da Ocampo MD [address] [facility] [place] [address] PCP - General Family Medicine 07/17/17 Nahed Batista [address] [place] [address] Consulting Urology 03/17/19 [facility] 10/09/18 Auto Service Instructor Relationship Specialty Start Date End Date Da Ocampo MD [address] [facility] [place] [address] PCP - General Family Medicine 07/17/17 Nahed Batista [address] [place] [address] [place] [address] Consulting Urology 03/17/19 [facility] 10/09/18 Auto Service Instructor Relationship Specialty Start Date End Date Da Ocampo MD [address] [place] [place] [address] PCP - General Family Medicine 07/17/17 Nahed Batista [address] [place] [facility] [address] [place] [address] Consulting Urology 03/17/19 [facility] 10/09/18 Auto Service Instructor Relationship Specialty Start Date End Date Da Ocampo MD [address] [place] [place] [address] PCP - General Family Medicine 07/17/17 Nahed Batista [address] [place] [facility] [address] [place] [address] Consulting Urology 03/17/19 [facility] 10/09/18 Auto Service Instructor Relationship Specialty Start Date End Date Da Ocampo MD [address] [facility], [place] [address] PCP - General Family Medicine 07/17/17 Nahed Batista [address] [place] [facility] [address] [place], [place] [address] Consulting Urology 03/17/19 [facility] 10/09/18 Auto Service Instructor Relationship Specialty Start Date End Date Da Ocampo MD [address] [place], [place] [address] PCP - General Family Medicine 07/17/17 Nahed Batista [address] [facility] [address] [place] [address] Consulting Urology 03/17/19 [facility] 10/09/18 INFORMATION SOURCE (unrecogn ized section and content) DATE CREATED AUTHOR AUTHOR'S ORGANIZ ATION 03/31/2023 [facility] FOR RECORDS PERTAINING TO PATIENTS WHO ARE [...] BE BASED ON THE PRIMARY CLINICAL RECORDS. [employer] [facility]. provides no warranty or guarantee of the accuracy or completeness of information in this document.
[2023-04-18 21:54] LABS: Anion Gap 3 (5-15); BUN 22 mg/dL (7-18); Calcium,Total 9.6 mg/dL (8.5-10.1); Chloride 105 mmol/L (98-107); Creatinine, Serum 0.73 mg/dL (0.55-1.02); EST Glomerular Filtration Rate 80 mL/min (>60); Est Glom Filt Rate - Afr Amer 97 mL/min (>60); Glucose 180 mg/dL (74-106); Magnesium 2.1 mg/dL (1.6-2.6); Potassium 3.4 mmol/L (3.5-5.1); Sodium Level 139 mmol/L (136-145)
[2023-04-18 22:28] VITALS: BP 164/65; PULSE 62; RESP 16; TEMP 36.6; O2SAT 94
[2023-04-18 22:42] LABS: Procalcitonin < 0.01 ng/mL (0.00-0.09)
[2023-04-18 22:56] VITALS: BP 159/59; PULSE 63; RESP 16; TEMP 36.8; O2SAT 94
[2023-04-18 22:59] VITALS: BMI 28.2
[2023-04-18 23:58] LABS: Bedside Glucose 155 mg/dL (74-106)
[2023-04-19 01:51] VITALS: O2SAT 94
[2023-04-19] MEDS: Acetaminophen 325 MG Tablet 650 MG PO (04:38)
[2023-04-19 04:59] VITALS: BP 119/68; PULSE 71; RESP 18; TEMP 37; O2SAT 95
[2023-04-19] MEDS: Levothyroxine 88 MCG Tablet PO (05:10)
[2023-04-19] MEDS: Senna/Docusate Sodium 1 Tablet 2 TABLET PO (05:10)
[2023-04-19] MEDS: 0.9% Saline Lock 10 ML Syringe IV (05:10)
[2023-04-19 06:00] VITALS: BMI 28.0
[2023-04-19 06:33] LABS: Absolute Neutrophil Count 2.6 X10^3/uL (2.0-7.7); Basophil# 0.02 X10^3/uL; Basophil% 0.4 % (0-1); Eosinophil# 0.09 X10^3/uL; Eosinophils% 1.8 % (0-5); Hematocrit 34.8 % (37-47); Hemoglobin 11.1 g/dL (12.0-15.0); Lymphocyte % 39.3 % (19-41); Mean Corp Hgb Conc 31.9 g/dL (32-36); Mean Corpuscular Hgb 28.2 pg (27.0-32.0); Mean Corpuscular Volume 88.3 fL (81-99); Mean Platelet Vol. 9.5 fl (6.2-12.0); Monocyte# 0.38 X10^3/uL; Monocyte% 7.5 % (0-10); NRBC Flagged by Analyzer 0 % (0-5); Neutrophil # 2.59 X10^3/uL (2.7-7.7); Neutrophil % 50.8 % (47-70); Platelet Count 230 K/mm3 (150-450); RBC Distribution Width CV 12.7 % (11.6-14.6); RBC Distribution Width SD 41.1 fl (35.1-43.9); Red Blood Count 3.94 M/mm3 (4.2-5.4); White Blood Count 5.1 K/mm3 (4.4-11.0)
[2023-04-19] MEDS: Insulin Lispro 100 UNIT/ML INSULN.PEN SC ×3 (06:40→16:52)
[2023-04-19 06:54] LABS: ALB/GLOB Ratio 0.9 RATIO (0.9-2.4); AST(SGOT) 11 U/L (15-37); Alanine Aminotransfer ALT/SGPT 15 U/L (13-56); Alkaline Phosphatase 91 U/L (45-117); Anion Gap 4 (5-15); BUN 19 mg/dL (7-18); BUN/Creat Ratio 27.9 RATIO (10-20); Calcium,Total 9.2 mg/dL (8.5-10.1); Chloride 104 mmol/L (98-107); Creatinine, Serum 0.68 mg/dL (0.55-1.02); EST Glomerular Filtration Rate 87 mL/min (>60); Est Glom Filt Rate - Afr Amer 105 mL/min (>60); Estimated Creatinine Clearance 52.64 ml/min; Globulin 3.2 g/dL (2.2-4.2); Glucose 148 mg/dL (74-106); Potassium 3.2 mmol/L (3.5-5.1); Protein, Total 6.2 g/dL (6.4-8.2); Sodium Level 138 mmol/L (136-145); T4 Free Direct 0.93 ng/dL (0.76-1.46); Thyroid Stim Hormone (TSH) 5.12 uIU/mL (0.358-3.74)
[2023-04-19 07:02] LABS: Bedside Glucose 152 mg/dL (74-106)
[2023-04-19 07:49] LABS: Hemoglobin A1c 7.2 % (3.8-5.6)
[2023-04-19] MEDS: Glucerna Shake 120 ML LIQUID PO ×3 (09:44→16:52)
[2023-04-19] MEDS: Menthol/Lanolin/Calamine/Znox 113 GM Tube 1 APPLIC TOPICAL ×2 (09:49→21:54)
[2023-04-19] MEDS: hydroCHLOROthiazide 25 MG Tablet PO (09:50)
[2023-04-19] MEDS: Nystatin Powder 15gm Bottle 1 APPLIC TOPICAL ×2 (09:50→21:54)
[2023-04-19] MEDS: Multivitamin (Healthy Eyes) Capsule 1 CAP PO (09:50)
[2023-04-19] MEDS: Enoxaparin 40 MG/0.4 ML Syringe SC (09:50)
[2023-04-19] MEDS: Venlafaxine HCl 75 MG Tablet PO ×2 (09:51→21:55)
[2023-04-19 10:01] VITALS: BP 126/59; PULSE 66; RESP 18; TEMP 36.8; O2SAT 94
--- NOTE | 2023-04-19 10:29 | CASEMGMT ---
Registered Radiographer: A list of 21 Acute Health providers including quality and resource use data and consistent with patient's preferred geographic region, medical needs, and insurance network were provided from the [employer] Guide. ALENA Benton
--- NOTE | 2023-04-19 10:58 | CASEMGMT ---
Addendum entered by Juju Davis 04/19/23 14:33: Social Work [facility] inpatient rehab is unable to accept pt as no beds available. With pt's permission, phone call to pt's dgt Josey to discussed discharge plan. SW explained that [facility] may be an option for pt however [facility] is unable to accept. SW did discuss fdc placement and that pt would be private pay at a nursing facility. Josey states pt becomes anxious easily and when her local dgt went away for a few days pt became very anxious and this impacted her ability to care for herself. Per Josey, pt has discussed need for fdc and family has started looking into this but no progress has been made on this. Josey would like to review list of options and speak with pt and sister Leelee. A list of RU and SNF providers including quality and resource use data and consistent with the patient?s preferred geographic region, medical needs, and insurance network were provided via the [employer]. Josey to notify SW of choices. ALENA Frazier Original Note: Social Work SW met with pt and introduced self and role of SW. SW completed assessment and discussed discharge plan with pt. Pt is A&Ox3 and although slow to respond, she does respond appropriately. PCP: Terrence Specialists: Lynne urologfazal Insurance: medicare Living Will/HPOA:?none LNOK: 2 daughters. Leelee Humphries lives locally. Josey España lives in [place] and pt requests that Josey be contacted. Living Arrangements: Pt lives home alone in a one story home with 2-3 steps to enter. Pt states she was able to take care of herself until recently. In the last week pt has been progressively weaker and has been having falls at home and is not able to care for herself. Pt states her dgt Leelee does grocery shopping and brings leftovers on occasion. Pt denies other help from daughters. Transportation:?Pt is unable to drive. Pt's dgt or neighbor provide transportation HHC/SNF: [facility] in the past and [facility] in the past PLAN: SW discussed discharge plan with pt and pt does not feel she is able to return home alone as she is weak and falling. Pt has a medical alert button and states she uses it to call the paramedics when she is feeling weak or needs assistance. SW discussed discharge options including nursing facility private pay or inpatient rehab. After options discussed, pt requesting inpatient rehab. A list of SNF providers including quality and resource use data and consistent with the patient?s preferred geographic region, medical needs, and insurance network were provided from the [employer]Port Guide. Pt's preferred provider is [facility]. Referral sent to Inpatient Rehab, SW will await determination on acceptance. ALENA Frazier
[2023-04-19 12:53] LABS: Bedside Glucose 181 mg/dL (74-106)
--- NOTE | 2023-04-19 13:45 | PN_ITS ---
Subjective Subjective Patient seen and examined. She was alert. Show no active complaints. She was admitted with complaint of debility and mechanical falls. Review of symptoms otherwise negative. Objective Data Objective Data Vital Signs: Vital Signs Temp Pulse Resp BP Pulse Ox O2 Del Method 98.2 F 66 18 126/59 H 94 Room Air 04/19/23 10:01 04/19/23 10:01 04/19/23 10:01 04/19/23 10:01 04/19/23 10:01 04/19/23 10:01 Oxygen Delivery Method Room Air Weight: 174 lb 13.225 oz Body Mass Index (BMI) 28.0 Intake & Output: Intake and Output for Last 24 Hours 04/17/23 04/18/23 04/19/23 23:59 23:59 23:59 Intake Total 360 / 360 Output Total 350 / 350 Balance Lab / Micro Data 04/19/23 06:08 04/19/23 06:08 Labs: Laboratory Results - last 24 hr 04/18/23 21:27: WBC 4.8, RBC 4.34, Hgb 12.2, Hct 38.1, MCV 87.8, MCH 28.1, MCHC 32.0, RDW Std Deviation 41.2, RDW Coeff of Marleni 12.7, Plt Count 248, MPV 9.6, Immature Gran % (Auto) 0.200, Neut % (Auto) 62.1, Lymph % (Auto) 28.7, [place] % (Auto) 6.9, Eos % (Auto) 1.5, Baso % (Auto) 0.6, Absolute Neuts (auto) 3.0, Absolute Lymphs (auto) 1.37, Nucleated RBC % 0, Sodium 139, Potassium 3.4 L, Chloride 105, Carbon Dioxide 31.0, Anion Gap 3 L, BUN 22 H, Creatinine 0.73, Estim Creat Clear Calc 51.10, Est GFR (MDRD) Af Amer 97, Est GFR (MDRD) Non-Af 80, BUN/Creatinine Ratio 30.0 H, Glucose 180 H, Calcium 9.6, Magnesium 2.1 04/18/23 21:35: Procalcitonin < 0.01 04/18/23 23:16: POC Glucose 155 H 04/19/23 06:08: WBC 5.1, RBC 3.94 L, Hgb 11.1 L, Hct 34.8 L, MCV 88.3, MCH 28.2, MCHC 31.9 L, RDW Std Deviation 41.1, RDW Coeff of Marleni 12.7, Plt Count 230, MPV 9.5, Immature Gran % (Auto) 0.200, Neut % (Auto) 50.8, Lymph % (Auto) 39.3, [place] % (Auto) 7.5, Eos % (Auto) 1.8, Baso % (Auto) 0.4, Absolute Neuts (auto) 2.6, A bsolute Lymphs (auto) 2.00, Nucleated RBC % 0, Sodium 138, Potassium 3.2 L, C hloride 104, Carbon Dioxide 30.0, Anion Gap 4 L, BUN 19 H, Creatinine 0.68, Estim Creat Clear Calc 52.64, Est GFR (MDRD) Af Amer 105, Est GFR (MDRD) Non-Af 87, BUN/Creatinine Ratio 27.9 H, Glucose 148 H, Hemoglobin A1c 7.2 H, Calcium 9.2, Total Bilirubin 0.50, AST 11 L, ALT 15, Alkaline Phosphatase 91, Total Protein 6.2 L, Albumin 3.0 L, Globulin 3.2, Albumin/Globulin Ratio 0.9, TSH 5.12 H, Free T4 0.93 04/19/23 06:36: POC Glucose 152 H 04/19/23 11:59: POC Glucose 181 H Physical Exam Const alert and no apparent distress Constitutional Narrative: frail General Appearance: cooperative HEENT normocephalic, head/scalp atraumatic, moist oral mucous membranes and oropharynx normal Eyes PERRL and EOMs intact bilaterally Neck no lymphadenopathy, supple and no JVD Lymph Lymphatic: no lymphadenopathy noted and no lymphedema noted Resp normal respiratory effort, normal air movement and clear to auscultation bila terally Cardio regular rate, regular rhythm, S1 normal heart sound, S2 normal heart sound and no murmurs GI normal to inspection, nondistended, normoactive bowel sounds, soft to palpation and non-tender Extremity General Extremity: no tenderness to palpation of joints or extremities Skin General Skin Exam: no breakdown Neuro CN's II-XII intact bilaterally, no focal motor deficits, no sensory deficits noted and deep tendon reflexes 2+ bilaterally Motor Exam: strength 5/5 throughout and general weakness Psych thought process normal and cooperative Activity / Motor Behavior: restless Assessment & Plan Assessment/Plan (1) Adult failure to thrive: (2) Weakness: PLAN: Plan #Failure to thrive with mechanical falls * PT/OT on board. * fall precautions * hydrate gently with iVF * may benefit from placement * * #Anxiety and depression; on venlafaxine * #Hypothyroidism; on synthroid # Hypertension: On hydrochlorothiazide. IV hydralazine as needed. #Type 2 diabetes mellitus: On insulin sliding scale. [facility]. #History of ovarian cancer: S/p total abdominal hysterectomy. Stable. #DVT prophylaxis: Lovenox Disposition: Will benefit from placement. Charges/Coding Visit Charges Inpatient E&M: 66047 Subs Hosp L2
--- NOTE | 2023-04-19 15:14 | CASEMGMT ---
Discharge Planning Referral sent via [facility] to [facility]. Aleksandra White, Discharge Planning Asst.
[2023-04-19 15:36] VITALS: BP 139/97; PULSE 67; RESP 17; TEMP 37; O2SAT 97
--- NOTE | 2023-04-19 17:04 | CASEMGMT ---
Met with patient to complete MALDONADO form. MAL[employer]ADO form explained to?patient who voiced understanding and signed form. Original form placed in pt?s chart and copy provided to?patient. Aleksandra White, Discharge Planning Asst
--- NOTE | 2023-04-19 17:13 | CASEMGMT ---
Social Work SW spoke with Josey on the phone and Josey requesting referral to [facility] and she is aware pt will be private pay. Josey is understanding of this. Referral sent to [facility] and they are able to accept pt. Josey notified and agreeable and will send payment check to [facility]. IRINA met with pt and discussed conversation with Josey and referral to [facility]. Pt is agreeable. Pt can discharge to [facility] tomorrow or when medically ready. Physician notified. Plan: [facility], when medically ready LAENA Frazier
[2023-04-19 17:15] LABS: Bedside Glucose 230 mg/dL (74-106)
[2023-04-19 21:41] VITALS: BP 128/46; PULSE 59; RESP 16; TEMP 36.8; O2SAT 96
[2023-04-19 22:19] LABS: Bedside Glucose 143 mg/dL (74-106)
[2023-04-20 03:02] VITALS: BP 170/59; PULSE 56; RESP 16; TEMP 36.7; O2SAT 94
[2023-04-20 03:10] VITALS: BMI 28.0
[2023-04-20 03:15] VITALS: PULSE 56
[2023-04-20] MEDS: hydrALAZINE 20 MG/ML Vial 10 MG IV (03:15)
[2023-04-20 06:31] VITALS: BP 129/74
[2023-04-20] MEDS: Levothyroxine 88 MCG Tablet PO (06:33)
[2023-04-20 07:28] LABS: Bedside Glucose 146 mg/dL (74-106)
[2023-04-20 07:43] VITALS: BP 125/87; PULSE 60; RESP 16; TEMP 36.4; O2SAT 97
[2023-04-20] MEDS: Glucerna Shake 120 ML LIQUID PO ×2 (08:02→12:12)
[2023-04-20] MEDS: Menthol/Lanolin/Calamine/Znox 113 GM Tube 1 APPLIC TOPICAL (08:02)
[2023-04-20] MEDS: hydroCHLOROthiazide 25 MG Tablet PO (08:03)
[2023-04-20] MEDS: Venlafaxine HCl 75 MG Tablet PO (08:03)
[2023-04-20] MEDS: Multivitamin (Healthy Eyes) Capsule 1 CAP PO (08:04)
[2023-04-20] MEDS: Nystatin Powder 15gm Bottle 1 APPLIC TOPICAL (08:05)
[2023-04-20] MEDS: Enoxaparin 40 MG/0.4 ML Syringe SC (08:05)
[2023-04-20 08:20] VITALS: O2SAT 97
--- NOTE | 2023-04-20 11:31 | TREXTCAR_ITS ---
Diet Diet Order/Speech Therapy: 04/18/23 22:45 Diet: Consistent Carb - Calorie Controlled Food consistency:: Regular Liquid Consistency:: Regular/Thin How many daily calories?: 1600 calorie Routine Orders/Code Status Enema Type: Fleetz Enema Frequency: Daily PRN Suppository Type: Dulcolax 10mg Suppository Frequency: Daily PRN O2 Frequency: PRN Keep PO Greater than or Equal to (%): 90 Wound(s) joann buttocks: Wound Type: Pressure Injury Therapies Weight Bearing: Weight bearing as tolerated Physical Therapy: Eval and Treat Occupational Therapy: Eval and Treat Problem/Diagnosis (1) Adult failure to thrive: Status: Acute Code(s): R62.7 - Adult failure to thrive (2) Weakness: Status: Acute Code(s): R53.1 - Weakness Plan #Failure to thrive with mechanical falls * PT/OT on board. * fall precautions * hydrate gently with iVF * may benefit from placement * * #Anxiety and depression; on venlafaxine * #Hypothyroidism; on synthroid # Hypertension: On hydrochlorothiazide. IV hydralazine as needed. #Type 2 diabetes mellitus: On insulin sliding scale. Dr. RITCHIE. #History of ovarian cancer: S/p total abdominal hysterectomy. Stable. #DVT prophylaxis: Lovenox Disposition: Will benefit from placement. Allergies/Procedures Done in Hospital Allergies amoxicillin [From Augmentin] Allergy (Verified 04/18/23 00:49) Itching cefdinir Allergy (Verified 04/18/23 00:49) Rash ciprofloxacin [From Cipro] Allergy (Verified 04/18/23 00:49) Swelling clavulanic acid [From Augmentin] Allergy (Verified 04/18/23 00:49) Itching doxycycline calcium [From Vibramycin] Allergy (Verified 04/18/23 00:49) Unknown doxycycline hyclate [From Vibramycin] Allergy (Verified 04/18/23 00:49) Unknown doxycycline monohydrate [From Vibramycin] Allergy (Verified 04/18/23 00:49) Unknown fluticasone Allergy (Verified 04/18/23 00:49) Unknown influenza virus vaccine, specific [Influenza Virus Vacc,Specific] Allergy (Verified 04/18/23 00:49) Swelling losartan Allergy (Verified 04/18/23 00:49) Angioedema pneumococcal vaccine [Pneumococcal Vaccine] Allergy (Verified 04/18/23 00:49) Rash promethazine HCl [From Phenergan] Allergy (Verified 04/18/23 00:49) Unknown tetracycline [Tetracycline] Allergy (Verified 04/18/23 00:49) Unknown cephalexin [From Keflex] Adverse Reaction (Verified 04/18/23 00:49) Rash metronidazole [From Flagyl] Adverse Reaction (Verified 04/18/23 00:49) Unknown sulfamethoxazole [From Bactrim] Adverse Reaction (Verified 04/18/23 00:49) Rash trimethoprim [From Bactrim] Adverse Reaction (Verified 04/18/23 00:49) Rash Procedures: None Type of Care/Length of Stay Estimated LOS: Convalescent Care Less Than 30 days Type of Care Needed: Skilled Rehab Potential: Fair Prognosis: Fair Additional Orders/Day of Discharge Day of Discharge: 04/20/23 Dietary and Speech Recommendations Dietitian Recommendations/Changes: Will change diet to 1600 [address] to better meet est nutritional needs Will continue glucerna shake tid w/ medpass to help preserve skin integrity Discharge Plan Admission Admit Date/Time: 04/18/23 21:24 Primary Reason for Your Visit: adult failure to thrive, debility Attending Provider: Julia Middleton Primary Care Provider: Da Ocampo Consulting Providers: Tessa Nascimento Instructions Patient Instructions: ED Mechanical Fall, ED FALL-from Bsxbpeayw-Zngla-Nlqpze Discharge Orders/Prescriptions Prescriptions: Continued metformin 500 MG tablet 500 mg PO TIDCM Patient Comments: DIABETES PreserVision AREDS-2 1 EACH capsule 1,000 mg PO DAILY venlafaxine 75 MG tablet 75 mg PO BID diphenhydramine HCl 25 MG capsule 12.5 mg PO QHS PRN (Reason: Insomnia) ascorbic acid (vitamin C) 1,000 mg Capsule, Extended Release 1,000 cap PO DAILY levothyroxine 88 mcg tablet 88 mcg PO DAILY methenamine mandelate 1 gram tablet 1 g PO BID hydrochlorothiazide 25 mg tablet 25 mg PO 1XD Patient Comments: TAKE 1 TABLET BY MOUTH ONCE DAILY menthol-zinc oxide [Calmoseptine] 0.44-20.6 % ointment 1 applic topical BID Protocol: *Topical Application Instructions APPLICATION INSTRUCTIONS: coccyx nystatin-triamcinolone 100,000-0.1 unit/gram-% ointment 1 applic TOPICAL BID PRN Patient Comments: Apply sparingly to perineum twice daily for irritation/infection. Gemtesa 75 mg tablet 75 mg PO DAILY Patient Comments: TAKE 1 TABLET BY MOUTH EVERY DAY desvenlafaxine succinate 50 mg tablet extended release 24 hr 50 mg PO Q24H Patient Comments: Take 1 tablet by mouth once daily. ascorbic acid (vitamin C) [Vitamin C] 500 mg capsule, extended release 500 mg PO DAILY carboxymethylcellulose sodium [Refresh Tears] 0.5 % drops 1 drp EACH EYE DAILY Referrals / Follow Up: Da Ocampo MD [Primary Care Provider] - Within 2 Weeks Disposition Disposition (needs filled in before D/C Order can be placed): Detention Facility
--- NOTE | 2023-04-20 11:36 | DS.PCM_ITS ---
Providers Date of Admission: 04/18/23 Date of Discharge: 04/20/23 Primary Care Physician: Dr. Da Ocampo MD Reason For Visit: ADULT FTT, FALLS Diagnosis Discharge Diagnosis (1) Adult failure to thrive: Status: Acute Code(s): R62.7 - Adult failure to thrive (2) Weakness: Status: Acute Code(s): R53.1 - Weakness Plan #Failure to thrive with mechanical falls * PT/OT on board. * fall precautions * hydrate gently with iVF * may benefit from placement * * #Anxiety and depression; on venlafaxine * #Hypothyroidism; on synthroid # Hypertension: On hydrochlorothiazide. IV hydralazine as needed. #Type 2 diabetes mellitus: On insulin sliding scale. Dr. RITCHIE. #History of ovarian cancer: S/p total abdominal hysterectomy. Stable. #DVT prophylaxis: Lovenox Disposition: Will benefit from placement. Medications at Discharge Home Medications metformin 500 mg tablet 500 mg PO TIDCM blood sugar 12/10/13 vit C 250 mg-vit E 90 mg-zinc 40 mg-copper 1 [id number]-fstrmh capsule (PreserVision AREDS-2) 1,000 mg PO DAILY multivitamin 04/22/14 venlafaxine 75 mg tablet 75 mg PO BID depression 08/20/18 diphenhydramine HCl 25 mg capsule 12.5 mg PO QHS PRN Insomnia 11/09/18 ascorbic acid (vitamin C) 1,000 mg capsule,extended release 1,000 cap PO DAILY SUPPLEMENT 09/19/20 levothyroxine 88 mcg tablet 88 mcg PO DAILY THYROID 03/03/21 methenamine mandelate 1 gram tablet 1 g PO BID URINATION 03/03/21 hydrochlorothiazide 25 mg tablet 25 mg PO 1XD bp 03/24/22 menthol 0.44 %-zinc oxide 20.6 % topical ointment (Calmoseptine) 1 applic topical BID Check with primary doctor 03/24/22 ascorbic acid (vitamin C) 500 mg capsule,extended release (Vitamin C) 500 mg PO DAILY 04/18/23 carboxymethylcellulose sodium 0.5 % eye drops (Refresh Tears) 1 drp EACH EYE DAILY 04/18/23 desvenlafaxine succinate 50 mg tablet,extended release 24 hr 50 mg PO Q24H 04/18/23 nystatin-triamcinolone 100,000 unit/gram-0.1 % topical ointment 1 applic topical BID PRN 04/18/23 vibegron 75 mg tablet (Gemtesa) 75 mg PO DAILY 04/18/23 Hospital Course Operations None Procedures None Summary of Care Provided Minutes Spent on Discharge: 45 Hospital Course: Patient is an 88-year-old female with a past medical history as outlined was admitted through the ED on 04/18/2023 with a complaint of failure to thrive. Patient lives on her own and had not been caring for herself at home. She had initially been seen on 04/17/2023 and recommendation was for her to be admitted to SNF on account of debility and failure to thrive. Patient however refused and left for home. However when she went home she fell again and was very weak so she was brought back to the ED. Labs were essentially unremarkable with urinalysis showed no evidence of UTI. Plain films were also negative for any evidence of fracture. She was admitted and managed for debility and failure to thrive. Physical therapy worked with patient and recommended that she be placed in a intermediate facility. Patient got pre-CERT and was discharged to [facility] on 04/20/2023. She is follow-up with her primary care doctor within 1 to 2 days. Patient seen and examined prior to discharge. He felt well and had no active complaints. She had an uneventful night. Review of systems otherwise negative. Labs and vitals reviewed. Home medication reviewed and reconciled. Physical Exam Const alert and no apparent distress Constitutional Narrative: frail General Appearance: cooperative and comfortable Orientation / Consciousness: awake HEENT normocephalic, head/scalp atraumatic, hearing grossly normal bilaterally, moist oral mucous membranes and oropharynx normal Mouth: oral and palatal mucosa normal Eyes PERRL and EOMs intact bilaterally Neck no lymphadenopathy, supple and no JVD Lymph Lymphatic: no lymphadenopathy noted and no lymphedema noted Resp normal respiratory effort, normal air movement and clear to auscultation bilaterally Cardio regular rate, regular rhythm, S1 normal heart sound, S2 normal heart sound and no murmurs GI normal to inspection, nondistended, normoactive bowel sounds, soft to palpation and non-tender Extremity General Extremity: no tenderness to palpation of joints or extremities Skin no rashes or lesions noted General Skin Exam: no breakdown Neuro CN's II-XII intact bilaterally, moves all extremities, no focal motor deficits, no sensory deficits noted and deep tendon reflexes 2+ bilaterally Sensorium / Orientation: awake Motor Exam: strength 5/5 throughout and general weakness Psych thought process normal and cooperative Weight / BMI Weight Weight: 174 lb 9.698 oz Body Mass Index (BMI) 28.0 ABG / Lab / Microbiology Data 04/19/23 06:08 04/19/23 06:08 Laboratory: Laboratory Results - last 24 hr 04/19/23 11:59: POC Glucose 181 H 04/19/23 16:51: POC Glucose 230 H 04/19/23 21:44: POC Glucose 143 H 04/20/23 06:31: POC Glucose 146 H D/C Instructions Discharge Diet: Low fat / Low cholesterol Discharge Activity: Return to Normal Activity Weight Bearing Status: Weight bearing as tolerated Call your doctor if you observe: Fever of 101 or Higher, Shortness of breath, Dizziness, Swelling in the ankles and Chest pain Meaningful Use Info Meaningful Use Diagnoses (Choose all that apply): None applicable Discharge Plan Admission Admit Date/Time: 04/18/23 21:24 Primary Reason for Your Visit: adult failure to thrive, debility Attending Provider: Julia Middleton Primary Care Provider: Da Ocampo Consulting Providers: Tessa Nascimento Instructions Patient Instructions: ED Mechanical Fall, ED FALL-from Ihxadszdv-Uahpy-Pynyku Discharge Orders/Prescriptions Prescriptions: Continued metformin 500 MG tablet 500 mg PO TIDCM Patient Comments: DIABETES PreserVision AREDS-2 1 EACH capsule 1,000 mg PO DAILY venlafaxine 75 MG tablet 75 mg PO BID diphenhydramine HCl 25 MG capsule 12.5 mg PO QHS PRN (Reason: Insomnia) ascorbic acid (vitamin C) 1,000 mg Capsule, Extended Release 1,000 cap PO DAILY levothyroxine 88 mcg tablet 88 mcg PO DAILY methenamine mandelate 1 gram tablet 1 g PO BID hydrochlorothiazide 25 mg tablet 25 mg PO 1XD Patient Comments: TAKE 1 TABLET BY MOUTH ONCE DAILY menthol-zinc oxide [Calmoseptine] 0.44-20.6 % ointment 1 applic topical BID Protocol: *Topical Application Instructions APPLICATION INSTRUCTIONS: coccyx nystatin-triamcinolone 100,000-0.1 unit/gram-% ointment 1 applic TOPICAL BID PRN Patient Comments: Apply sparingly to perineum twice daily for irritation/infection. Gemtesa 75 mg tablet 75 mg PO DAILY Patient Comments: TAKE 1 TABLET BY MOUTH EVERY DAY desvenlafaxine succinate 50 mg tablet extended release 24 hr 50 mg PO Q24H Patient Comments: Take 1 tablet by mouth once daily. ascorbic acid (vitamin C) [Vitamin C] 500 mg capsule, extended release 500 mg PO DAILY carboxymethylcellulose sodium [Refresh Tears] 0.5 % drops 1 drp EACH EYE DAILY Referrals / Follow Up: Da Ocampo MD [Primary Care Provider] - Within 2 Weeks Disposition Disposition (needs filled in before D/C Order can be placed): [facility] Facility Charges/Coding Visit Charges Inpatient E&M: 06714 Disch Hosp >30min
[2023-04-20 11:41] LABS: Bedside Glucose 261 mg/dL (74-106)
[2023-04-20] MEDS: Insulin Lispro 100 UNIT/ML INSULN.PEN SC (12:12)
[2023-04-20 12:28] VITALS: BP 126/65; PULSE 85; RESP 18; TEMP 37.1; O2SAT 98
[2023-04-20 16:12] LABS: Bedside Glucose 186 mg/dL (74-106)
== END 2023-04-20 15:59 | disposition skilled nursing facility (03) ==
LOC: ED 21:38 → MS3 21:41
PROVIDERS: Admitting Provider Family Medicine; Emergency Provider Emergency Medicine; PCP Family Medicine; Visit Provider Student in an Organized Health Care Education/Training Program
DX: R62.7 Adult failure to thrive (principal); E11.9 Type 2 diabetes mellitus without complications; R53.1 Weakness; Z79.84 Long term (current) use of oral hypoglycemic drugs; R53.81 Other malaise; E03.9 Hypothyroidism, unspecified; F41.9 Anxiety disorder, unspecified; R41.89 Other symptoms and signs involving cognitive functions and awareness; I10 Essential (primary) hypertension; Z91.81 History of falling; Z79.899 Other long term (current) drug therapy; Z79.890 Hormone replacement therapy; F32.A Depression, unspecified
CPT/HCPCS: 36415; 71046; 80048; 80053; 81001; 82962; 83036; 83735; 84145; 84439; 84443; 84484; 85025; 87426; 87631; 93005; 94668; 96360; 96361; 96372; 96374; 97162; 97166; 97802; 99221; 99284; J7030; P9612; A4216; G0378

== ENCOUNTER → 2023-04-23 | Outpatient (REF) | payer MEDICARE, OTHER, SELFPAY ==
--- OUTSIDE RECORDS SUMMARY | 2023-04-23 05:35 | XMS RPT_ITS | CCD ---
Author Name Unknown Address [address] [place] [address] Organization [facility] Care Team Providers Care Residential Aide Name Role Phone Da Ocampo MD Primary Care Provider [phone] Nahed Batista Unavailable [phone] JERRY NUGENT Attending Unavailable JERRY NUGENT Admitting Unavailable DA OCAMPO Primary Care Unavailable Da Ocampo MD Primary Care Provider Nahed Batista Unavailable DA OCAMPO Primary Care Unavailable PHONG TREJO Attending Unavailable DA OCAMPO Primary Care Unavailable DA OCAMPO Attending Unavailable DA OCAMPO Referring Unavailable DA OCAMPO Primary Care Unavailable DA OCAMPO Referring Unavailable AD OCAMPO Primary Care Unavailable DA OCAMPO Referring [...] [AMOXICILLIN-POT CLAVULANATE] Drug Allergy 04-25-20 18 Itching [facility] (13 sources) Angiotensin II receptor antagonist; Translations: [ARB-ANGIOTENSIN RECEPTOR ANTAGONIST] Drug Allergy 11-12-19 19 Angioedema [facility] Work Phone: (20 sources) Atenolol; Translations: [ATENOLOL] Drug Allergy 08-08-19 09 Itching [facility] Work Phone: (20 sources) cefdinir; Translations: [CEFDINIR] Drug Allergy 07-18-19 18 Rash [facility] (20 sources) Cephalexin; Translations: [CEPHALEXIN] Drug Allergy 10-12-19 19 Rash [facility] Work Phone: (20 sources) Ciprofloxacin; Translations: [CIPROFLOXACIN] Drug Allergy 11-13-19 19 Other: See Comments [facility] Work Phone: (20 sources) Doxycycline; Translations: [DOXYCYCLINE CALCIUM] Drug Allergy 01-10-20 05 [facility] Work Phone: (20 sources) meloxicam; Translations: [MELOXICAM] Drug Allergy 07-18-19 18 [facility] (20 sources) metroNIDAZOLE; Translations: [METRONIDAZOLE HCL] Drug Allergy 01-10-20 05 [facility] Work Phone: (20 sources) Promethazine; Translations: [PROMETHAZINE HCL] Drug Allergy 01-10-20 05 [facility] Work Phone: (20 sources) Sulfamethoxazole / Trimethoprim; Translations: [SULFAMETHOXAZOLE-TR IMETHOPRIM] Drug Allergy 07-18-19 18 [facility] (13 sources) Tetracycline (class of antibiotic); Translations: [TETRACYCLINES] Propensity to adverse reactions 01-10-20 05 [facility] Work Phone: (13 sources) Influenza Virus Vaccines; Translations: [INFLUENZA VIRUS VACCINES] Propensity to adverse reactions 02-26-20 06 Rash, Swelling, Itching [facility] Work Phone: (20 sources) Angiotensin II receptor antagonist Drug Allergy 11-12-19 19 Angioedema [facility] Work Phone: (20 sources) Tetracycline (class of antibiotic) Propensity to adverse reactions 01-10-20 05 [facility] Work Phone: (20 sources) Influenza Virus Vaccines Propensity to adverse reactions 02-26-20 06 Rash, Swelling, Itching [facility] Work Phone: (16 sources) Clavulanate; Translations: [CLAVULANIC ACID] Drug Allergy 10-12-19 Unknown [facility] (16 sources) fluticasone; Translations: [FLUTICASONE] Drug Allergy 10-12-19 Unknown [facility] (16 sources) Pneumococcal vaccine; Translations: [PNEUMOCOCCAL VACCINE] Drug Allergy 10-12-19 Unknown [facility] (16 sources) Sulfamethoxazole; Translations: [SULFAMETHOXAZOLE] Drug Allergy 10-12-19 Unknown [facility] (16 sources) Trimethoprim; Translations: [TRIMETHOPRIM] Drug Allergy 10-12-19 Unknown [facility] Medications Current Medications Medication Drug Class(es) [...] 74 mm[Hg] Kevin Fox MD Work Phone: [facility] 01-21-2023 15:03-0400 Heart rate 65 /min Kevin Fox MD Work Phone: [facility] 01-21-2023 15:03-0400 SaO2% (BldA) [Mass fraction] 97 % Kevin Fox MD Work Phone: [facility] 01-21-2023 15:03-0400 Systolic blood pressure 143 mm[Hg] Kevin Fox MD Work Phone: [facility] 11-16-2022 13:17-0400 Body weight 76.66 kg Da Ocampo MD Work Phone: [facility] 11-16-2022 13:17-0400 Diastolic blood pressure 62 mm[Hg] Da Ocampo MD Work Phone: [facility] 11-16-2022 13:17-0400 Heart rate 66 /min Da Ocampo MD Work Phone: [facility] 11-16-2022 13:17-0400 SaO2% (BldA) [Mass fraction] 97 % Da Ocampo MD Work Phone: [facility] 11-16-2022 13:17-0400 Systolic blood pressure 134 mm[Hg] Da Ocampo MD Work Phone: [facility] 07-23-2022 14:20-0400 Body temperature 97.59 [degF] Da Ocampo MD Work Phone: [facility] 07-23-2022 14:20-0400 Diastolic blood pressure 66 mm[Hg] Da Ocampo MD Work Phone: [facility] 07-23-2022 14:20-0400 Heart rate 62 /min Da Ocampo MD Work Phone: [facility] 07-23-2022 14:20-0400 SaO2% (BldA) [Mass fraction] 96 % Da Ocampo MD Work Phone: [facility] 07-23-2022 14:20-0400 Systolic blood pressure 144 mm[Hg] Da Ocampo MD Work Phone: [facility] 04-04-2022 15:49-0500 Body height 165.1 cm Da Ocampo MD Work Phone: [facility] 04-04-2022 15:49-0500 Body weight 76.2 kg Da Ocampo MD Work Phone: [facility] 04-04-2022 15:49-0500 Diastolic blood pressure 70 mm[Hg] Da Ocampo MD Work Phone: [facility] 04-04-2022 15:49-0500 Heart rate 64 /min Da Ocampo MD Work Phone: [facility] 04-04-2022 15:49-0500 SaO2% (BldA) [Mass fraction] 95 % Da Ocampo MD Work Phone: [facility] 04-04-2022 15:49-0500 Systolic blood pressure 142 mm[Hg] Da Ocampo MD Work Phone: [facility] Encounters Encounter Date Encounter Type Care Provider Facility Start: 03-29-2023 End: 03-29-2023 ambulatory DA OCAMPO Facility:[facility] Start: 02-18-2023 End: 02-18-2023 ambulatory Da Ocampo MD Work Phone: [facility] Plan of Treatment Date Care Activity Detail Author Start: 07-06-2027 Urine microalbumin profile [facility] Start: 11-17-2023 Hepatitis B surface antibody level LDL Cholesterol [facility] Start: 07-24-2023 Hepatitis B surface antibody level LDL CHOLESTEROL [facility] Start: 07-23-2023 End: 01-22-2024 Echocardiography ECHO Cardiology Routine Nonrheumatic aortic valve stenosis Expected: 07/23/2023, Expires: 01/22/2024 [facility] Work Phone: Immunizations Immunization Date Immunization Notes Care Provider Debi [email or web address] 07-05-2017 tetanus and diphther ia toxoids, adsorbed, preservative free, for adult use (2 Lf of tetanus toxoid and 2 Lf of diphtheria toxoid) Da Ocampo MD Work Phone: [facility] Work Phone: 07-05-2017 tetanus toxoid, redu luz marina diphtheria toxoid, and acellular pertussis vaccine, adsorbed Da Ocampo MD Work Phone: [facility] 12-10-2013 TD(adult) unspecifie d formulation Da Ocampo MD Work Phone: [facility] 10-20-2006 tetanus and diphther ia toxoids, adsorbed, preservative free, for adult use (2 Lf of tetanus toxoid and 2 Lf of diphtheria toxoid) Da Ocampo MD Work Phone: [facility] 09-30-2006 tetanus and diphther ia toxoids, adsorbed, preservative free, for adult use (2 Lf of tetanus toxoid and 2 Lf of diphtheria toxoid) Da Ocampo MD Work Phone: [facility] Work Phone: 02-22-2006 influenza virus vacc ine, unspecified formulation Da Ocampo MD Work Phone: [facility] Work Phone: 02-22-2006 pneumococcal polysaccharide vaccine, 23 valent Da Ocampo MD Work Phone: [facility] Work Phone: 02-22-2006 pneumococcal vaccine , unspecified formulation Da Ocampo MD Work Phone: [facility] 09-23-1994 tetanus and diphther ia toxoids, adsorbed, preservative free, for adult use (2 Lf of tetanus toxoid and 2 Lf of diphtheria toxoid) Da Ocampo MD Work Phone: [facility] Payers Date Payer Category Payer [employer] ( and others) [id number] 2022 Unknown FOR LIFE [id number] 2022-Present [phone] [address] [place] [address] Indemnity [id number] 2018 Unknown [employer] LIFE [id number] 2018-Present [phone] [address] [place] [address] Indemnity [id number] 2001 Medicare MEDICARE MEDICAR E A AND B [id number] 2001-Present [phone] [address] [address] [place] [address] Medicare [id number] 2001 Medicare MEDICARE MEDICAR E A AND B [id number] 2001-Present [phone] [place] [address] Medicare [id number] 2001 Medicare [id number] Social History Date Type Detail Facility Start: 07-17-2017 End: 04-04-2022 Tobacco smoking status NHIS Never smoked tobacco [facility] Start: 05-05-2021 End: 01-21-2023 Alcohol intake Current non-drinker of alcohol (finding) [facility] Start: 10-09-2018 History SDOH Social Connections Phone 5 [facility] Start: 10-09-2018 History SDOH Social Connections Living 3 [facility] Start: 11-19-2019 History SDOH Food Worry 1 [facility] Start: 11-19-2019 History SDOH Transpo rt Med 2 [facility] Start: 1935 Sex Assigned At Not on file [facility] Start: 04-02-2021 End: 07-25-2021 Exposure to SARS-CoV-2 (event) Not sure [facility] Start: 07-17-2017 End: 04-04-2022 Tobacco use and exposure Smokeless tobacco non-user [facility] Start: 10-09-2018 End: 08-07-2022 History of Social function [facility] Start: 10-09-2018 End: 08-07-2022 Social connection and isolation panel [facility] Attends Mu-Ism Services Not on file [facility] Work Phone: Are you now , , , , never or living with a partner? [facility] (I/We) worried wheth er (my/our) food would run out before (I/we) got money to buy more. Never true [facility] Work Phone: Start: 05-04-2020 Gender identity Identifies as female gender (finding) [facility] Start: 05-04-2020 Sexual orientation Heterosexual (dena matias) [facility] Medical Equipment Procedure Code Equipment Code Equipment Origin al Text Equipment Identifier Dates [employer] Tis 8x5 mm Ttplst - [id number] Start: 01-31-2012 Goals Date Patient Goal Desired Activity /State Personal health goal Personal health goal Clinical Notes 01-19-2008 to 03-29-2023 Da Ocampo MD - 02/18/2023 9:00 AM ESTTelephone Encounter - Caridad Wong RN - 02/12/2023 4:56 PM ESTTelephone Encounter - Lisbet Springer LPN - 02/12/2023 3:36 PM EST Note Date & Type Note Facility 03-29-2023 Note HNO ID: [id number] Author: PHONG TREJO APRN.[employer] Service: ? Author Type: Nurse Practitioner Type: [...] Can't come in for appointment d/t her local city driver is ill. States this is the [...] gram tablet Take (more content not included)... [facility] 02-18-2023 Note HNO ID: [id number] Author: Da Ocampo MD Service: ? Author [...] visit. Either the patient or their legal employment program representative has been informed of the risks [...] Take 1 tablet by mouth twice daily. LKFHNJAK-BMCDLDWPQ-SUAUBTWT 3.5 MG/ML-10,000 UNIT/ML-0.1% EYE DROPS Use 1 Drop in both eyes twice daily. vit C,N-Nx-vtjje-lutein-zeaxan (PRESERVISION AREDS-2) 250-90-40-1 mg Take 1 capsule [...] EPITHELIUM W/APPL C (more content not included)... [facility] 02-18-2023 History of Present illness Narrative [...] visit. Either the patient or their legal employment program representative has been informed of the risks [...] Take 1 tablet by mouth twice daily. QTNPBCTO-VMARCUVKU-IMRAVPIF 3.5 MG/ML-10,000 UNIT/ML-0.1% EYE DROPS Use 1 Drop in both eyes twice daily. vit C,W-Wy-jvlcf-lutein-zeaxan (PRESERVISION AREDS-2) 250-90-40-1 mg Take 1 capsule [...] with more than 50% of the total eeyj-lm-tfnb time of the visit in counseling / coordination of care. Da Ocampo documented in this encounter [facility] 02-12-2023 Note HNO ID: [id number] Author: Da Ocampo MD Service: ? Author Type: Physician Type: Progress Notes Filed: 02/12/2023 3:12 PM Note Text: Attempted to call multiple times over 10 minute period. Was busy. Unable to connect via virtual. [facility] 02-12-2023 Miscellaneous Notes Patient called in. [...] will need rescheduled. documented in this encounter [facility] 02-12-2023 History of Present illness Narrative Attempted to call multiple times over 10 minute period. Was busy. Unable to connect via virtual. documented in this encounter [facility] 02-11-2023 Miscellaneous Notes Called patient but [...] thought in December. documented in this encounter [facility] 02-11-2023 Miscellaneous Notes Called patient but [...] advise RADHA Espinoza documented in this encounter [facility] 02-08-2023 Miscellaneous Notes Spoke with patient [...] reply. Thank you. documented in this encounter [facility] 02-06-2023 Miscellaneous Notes LISETTE-11/16/22 Labs-11/16/22 NOV-02/12/23 Pharm. stated Pt has no refills and needs new Rx Bette Small LPN documented in this encounter [facility] 01-21-2023 Note HNO ID: [id number] Author: Kevin Fox MD Service: ? Author Type: Physician Type: Progress Notes Filed: 01/21/2023 5:17 PM Note Text: Kevin Fox MD Interventional Cardiology [address] [place] [address] Chief Complaint Patient presents with: New Patient [...] Take 1 tablet by mouth twice daily. TBHKTGKY-NOSKEXEBN-RYLQWCXI 3.5 MG/ML-10,000 UNIT/ML-0.1% EYE DROPS Use 1 Drop in both eyes twice daily. vit C,W-Iw-lkgzt-lutein-zeaxan (PRESERVISION AREDS-2) 250-90-40-1 m (more content not included)... [facility] 01-21-2023 History of Present illness Narrative Images from the original note were not included. Kevin Fox MD Interventional Cardiology [address] [place] [address] Chief Complaint Patient presents with: New Patient [...] Take 1 tablet by mouth twice daily. JRUCMIAT-WBJWQZQOI-MDHGCRLF 3.5 MG/ML-10,000 UNIT/ML-0.1% EYE DROPS Use 1 Drop in both eyes twice daily. vit C,A-Sr-qlprn-lutein-zeaxan (PRESERVISION AREDS-2) 250-90-40-1 mg Take 1 capsule [...] correct any errors. documented in this encounter [facility] 12-12-2022 Note HNO ID: [id number] Author: Jerry Nugent MD Service: ? Author [...] of its relevant components. Jerry Nugent MD [facility] 12-07-2022 Note HNO ID: [id number] Author: Rigo Abreu, EVER Service: ? Author Type: OPTICIAN APPRENTICE Type: Progress Notes Filed: 12/07/2022 4:21 PM [...] Abreu, OD December 07, 2022 4:20 PM [facility] 12-07-2022 History of Present illness Narrative [...] 2022 4:20 PM documented in this encounter [facility] 12-07-2022 Miscellaneous Notes Patient scheduled with [...] This patient just underwent corneal surgery at [place] on 12/04/2022. I pasted below the PSR's [...] week as well. documented in this encounter [facility] documented as of this encounter (statuses as of 12/07/2022) [facility]09-12-2023 History of Past illness Narrative* Problem [...] of this encounter (statuses as of 12/08/2022) [facility] History of Past illness Narrative* Problem [...] of this encounter (statuses as of 01/22/2023) [facility] History of Past illness Narrative* Problem [...] of this encounter (statuses as of 02/06/2023) [facility] History of Past illness Narrative* Problem [...] of this encounter (statuses as of 02/08/2023) [facility]20[facility] History of Past illness Narrative* Problem [...] of this encounter (statuses as of 02/11/2023) [facility] History of Past illness Narrative* Problem [...] of this encounter (statuses as of 02/13/2023) [facility] History of Past illness Narrative* Problem [...] of this encounter (statuses as of 02/13/2023) [facility] History of Past illness Narrative* Problem [...] of this encounter (statuses as of 02/18/2023) [facility]08-25-2023 NoteHNO ID: [id number] Author: Da Ocampo MD Service: ? Author [...] medication. Looks like from scanned document to [employer]. Is for OAB Sore on bottom is [...] Take 1 tablet by mouth twice daily. USFDHIGB-RGPFWWXZK-NEIJNFKP 3.5 MG/ML-10,000 UNIT/ML-0.1% EYE DROPS Use 1 Drop in both eyes twice daily. vit C,R-Jm-oroux-lutein-zeaxan (PRESERVISION AREDS-2) 250-90-40-1 mg Take 1 capsule [...] Hyperlipidemia Other and un (more content not included)...[facility]08-25-2023 History of Present illness Narrative* Da [...] medication. Looks like from scanned document to [facility]. Is for OAB Sore on bottom is [...] Take 1 tablet by mouth twice daily. LZRCYRRF-EKATXMSOM-NFKHUBRP 3.5 MG/ML-10,000 UNIT/ML-0.1% EYE DROPS Use 1 Drop in both eyes twice daily. vit C,T-Lq-nuxnx-lutein-zeaxan (PRESERVISION AREDS-2) 250-90-40-1 mg Take 1 capsule [...] weeks Da Ocampo MD [facility] Miscellaneous Notes* Telephone Encounter - Ne Kelsey - 10/30/2022 1:08 PM EDT Patient has been scheduled for 12/04/[address] Nugent in [place] * Telephone Encounter - Aleja Castanon RN - 10/19/2022 2:25 PM EDT Patient is inquiring about setting up surgery in [place]. Aleja Castanon RN October 19, 2022 2:26 PM documented in [facility] Miscellaneous Notes* Telephone Encounter - Ne Kelsey - 10/24/2022 1:47 PM EDT Called patient to schedule chelation left eye with Dr. Jerry Nugent at the [place] location. Patient states she needs to have it done, but she's not able to see to write anything down, and asked me to call her daughter, Josey to schedule it. I did offer her 11/21/22 or 12/04 22. Patient states she prefers 12/04/22, but to check with her daughter about the dates. Per Epic notes, the cell phone number of [phone] is for Josey, so I called this number but got a voicemail for Zo. I left a message for Josey to call me back and schedule the surgery on behalf of the patient. (Per Patient contact numbers, Josey's phone number is actually [phone]. I called it and left a voicemail explaining that the patient asked me to contact her to schedule hersurgery and that I also left a voicemail for Zo. Requested a call back from either one to assist with patient scheduling. documented in this encounter[facility] Miscellaneous Notes* Telephone Encounter - Luisito [...] know the name of the medication. UsesDrug Merino. 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 Also wants to know if she has to taking her levothyroxine alone or can she take other meds with it at the same time? Please advise at [phone] documented in this [facility]2023 NoteHNO ID: [id number] Author: Jerry Nugent MD Service: ? Author [...] Jerry Nugent MD October 17, 2022 10:56 [facility]07-19-2023 Miscellaneous Notes* Telephone Encounter - Katharine Weathers [...] the pharmacy. Katharine Weathers documented in this encounterMem[facility]23 NoteHNO ID: [id number] Author: Da Ocampo MD Service: ? Author Type: Physician Type: Progress Notes Filed: 07/23/2022 2:52 PM Note Text: Patient presents with: ER F/U HPI: Patient presents today for office visit for ER F/U. Went to [facility] ER on 07/18/22 due to generalized weakness. Dx with UTI and given Macrobid. Abx completed. Her work up was otherwise ok. Went back to [facility] on 07/22/22 due to not feeling good [...] Take 1 tablet by mouth twice daily. LSUAEOIV-OWLVUNWTV-OLGSURTS 3.5 MG/ML-10,000 UNIT/ML-0.1% EYE DROPS Use 1 Drop in both eyes twice daily. vit C,R-Tt-hqvpv-lutein-zeaxan (PRESERVISION AREDS-2) 250-90-40-1 mg Take 1 capsule [...] 04/04/2022 76.2 kg (168 (more content not included)...[facility] 07-23-2022 History of Present illness Narrative* Da Ocampo MD - 07/23/2022 2:20 PM EDT Patient presents with: ER F/U HPI: Patient presents today for office visit for ER F/U. Went to [facility] ER on 07/18/22 due to generalized weakness. Dx with UTI and given Macrobid. Abx completed. Her work up was otherwise ok. Went back to [facility] on 07/22/22 due to not feeling good [...] Take 1 tablet by mouth twice daily. NJDSFMWY-SNUXBLVTA-GPCWXQCE 3.5 MG/ML-10,000 UNIT/ML-0.1% EYE DROPS Use 1 Drop in both eyes twice daily. vit C,H-Kn-uoaaj-lutein-zeaxan (PRESERVISION AREDS-2) 250-90-40-1 mg Take 1 capsule [...] BLD Da Ocampo MD documented [facility] Miscellaneous Notes* Telephone Encounter - Mary [...] you. Mary Jordan RN documented in this encounter[facility] Miscellaneous Notes* Telephone Encounter - Macarena [...] notify patient. Macarena Reyes documented in this encounterMem[facility]23 Miscellaneous Notes* Telephone Encounter - Charlotte [...] advise, Shawna Looney RN documented in this encounterMem[facility]23 Miscellaneous Notes* Telephone Encounter - Tonya [...] patient. Tonya Alarcon Pss documented in this encounterMem[facility]01-[facility]-2023 NoteHNO ID: [id number] Author: Da Ocampo MD Service: ? Author [...] Take 1 tablet by mouth twice daily. WYBJYFCJ-DBQSKMMSC-BPEEKDPU 3.5 MG/ML-10,000 UNIT/ML-0.1% EYE DROPS Use 1 Drop in both eyes twice daily. vit C,D-Mz-xaivu-lutein-zeaxan (PRESERVISION AREDS-2) 250-90-40-1 mg Take 1 capsule [...] Topics Alcohol use: N (more content not included)...[facility] 04-04-2022 History of Present illness Narrative* [...] Take 1 tablet by mouth twice daily. BZFUAGUJ-FLHZEECQZ-GZGPWCXO 3.5 MG/ML-10,000 UNIT/ML-0.1% EYE DROPS Use 1 Drop in both eyes twice daily. vit C,F-Ny-ozezb-lutein-zeaxan (PRESERVISION AREDS-2) 250-90-40-1 mg Take 1 capsule [...] TABLET Da Ocampo MD documented in [facility] encounter[facility] History of Past illness Narrative* Problem [...] of this encounter (statuses as of 04/05/2022) [facility]01[facility]11[facility] History of Past illness Narrative* Problem [...] of this encounter (statuses as of 04/09/2022) [facility] History of Past illness Narrative* Problem [...] of this encounter (statuses as of 04/09/2022) [facility] History of Past illness Narrative* Problem [...] of this encounter (statuses as of 04/19/2022) [facility] History of Past illness Narrative* Problem [...] of this encounter (statuses as of 05/31/2022) [facility] History of Past illness Narrative* Problem [...] of this encounter (statuses as of 07/24/2022) [facility] History of Past illness Narrative* Problem [...] of this encounter (statuses as of 10/11/2022) [facility] History of Past illness Narrative* Problem [...] of this encounter (statuses as of 10/24/2022) [facility] History of Past illness Narrative* Problem [...] of this encounter (statuses as of 10/30/2022) [facility] History of Past illness Narrative* Problem [...] of this encounter (statuses as of 11/16/2022) [facility]01-06-2023 Miscellaneous Notes* Telephone Encounter - oRbson Alas LPN - 03/30/2022 11:52 AM EST [...] - 03/30/2022 11:18 AM EST Cecy with [facility] nursing calling for clarification on Potassium and Preservation. Pt has instructed her she is not taking these. Please advise Cecy. Althea Herrera LPN documented in this encounterMem[facility] Miscellaneous Notes* Telephone Encounter - Da Ocampo MD - 03/29/2022 4:55 PM EST noted * Telephone Encounter - Althea Herrera LPN - 03/29/2022 4:09 PM EST Joaquina with [facility], PT calling with plan of care. They will see pt 1 time a week for 1 week, then2 times a week for 4 weeks for strengthening, gait, transfers and fall prevention. No call back needed Althea Herrera LPN documented in this encounterMem[facility] Miscellaneous Notes* Telephone Encounter - Yas Gamble Ma - 03/28/2022 11:49 AM EST Order faxed to [facility], verbal order given to Sandy * Telephone Encounter - Melvina Thomas RN - 03/28/2022 11:15 AM EST Sandy from [facility] called in and reports Pt was admitted to [facility] on 03/23/22 for a small bowel obstruction [...] is a confidential line. documented in this encounterMem[facility] Miscellaneous Notes* Telephone Encounter - Tricia [...] you. Tricia Posada RN documented in this encounterMem[facility] Miscellaneous Notes* Telephone Encounter - Joaquina Reyes - 10/10/2021 4:39 PM EDT Patient needs her levothyroxine sent to the [facility] in [place]. no longer covers through [facility] [email or web address]. * Telephone Encounter - Joaquina Woo Pss [...] advise. Joaquina Woo Pss documented in this encounterMem[facility] Miscellaneous Notes* Telephone Encounter - Robson [...] to the pharmacy. Please call patient at: [phone] Macarena Santosdoug Vargashl Pss documented in this encounterMem[facility] Miscellaneous Notes* Telephone Encounter - Robson [...] patient. Macarenadoug Vargasheather Reyes documented in this encounterMem[facility] Miscellaneous Notes* Telephone Encounter - Tonya [...] Recommend to see cardiology documented in this encounterMem[facility] Miscellaneous Notes* Telephone Encounter - Yas Gamble Ma - 08/03/2021 1:07 PM EDT Patient was made aware of the results. Patient verbalizes understanding. Yas Gamble Ma * Telephone Encounter - Da Ocampo MD - 08/03/2021 11:20 AM EDT Labs stable. Slightly anemic, could still be recovering from surgery but recheck labs to be on [facility] in one week documented in this encounterMem[facility] Miscellaneous Notes* Telephone Encounter - Melvina [...] Antonio. Please advise pt. documented in this encounterMem[facility] Miscellaneous Notes* Telephone Encounter - Lisbet [...] do. Althea Herrera LPN documented in this encounterMem[facility] History of Present illness Narrative* Jessie [...] 10, 2021 4:24 PM documented in this encounterMem[facility]22 Miscellaneous Notes* Telephone Encounter - Cadence Herrera LPN - 07/09/2021 12:06 PM EDT Phone call placed prior, [employer] active 07/08/21, message sent with updated results. Cadence Herrera LPN * Telephone Encounter - Cadence Herrera LPN - 07/07/2021 9:13 AM EDT Phone call placed brief message to contact a nurse. Cadence Herrera LPN * Telephone Encounter - Cadence Herrera LPN - 07/07/2021 9:11 AM EDT ----- Message from Rachna Garcia APRN.[employer] sent at 07/06/2021 8:19 PM EDT ----- Please advise patient the radiologist sees a possible old fracture at the base of the distal fibula. This is not likely causing her pain, however I would like her to follow up with podiatry so he canevaluate the xrays. Referral entered. Rachna Garcia APRN.[employer] documented in this encounterMemorial [facility] Miscellaneous Notes* Telephone Encounter - Tonya [...] notify patient. Ciera Reeves documented in this encounterMemorial [facility]2022 Miscellaneous Notes* Telephone Encounter - Zoila [...] you. Melvina Thomas RN documented in this encounterMem[facility] History of Past illness Narrative* Problem Noted Date Resolved Date Sprain and strain of unspeci fied site of shoulder and upper arm 01/19/2008 02/11/2020 Hypothyroidism, acquired 09/11/2005 020 Abdominal pain, left lower quadrant 10/22/2017 documented as of this encounter (statuses as of 07/05/2021) [facility]10[facility] History of Past illness Narrative* Problem Noted Date Resolved Date Sprain and strain of unspeci fied site of shoulder and upper arm 01/19/2008 02/11/2020 Hypothyroidism, acquired 09/11/2005 020 Abdominal pain, left lower quadrant 10/22/2017 documented as of this encounter (statuses as of 07/05/2021) [facility]10[facility] History of Past illness Narrative* Problem Noted Date Resolved Date Sprain and strain of unspeci fied site of shoulder and upper arm 01/19/2008 02/11/2020 Hypothyroidism, acquired 09/11/2005 020 Abdominal pain, left lower quadrant 10/22/2017 documented as of this encounter (statuses as of 07/06/2021) [facility] History of Past illness Narrative* Problem Noted Date Resolved Date Sprain and strain of unspeci fied site of shoulder and upper arm 01/19/2008 02/11/2020 Hypothyroidism, acquired 09/11/2005 020 Abdominal pain, left lower quadrant 10/22/2017 documented as of this encounter (statuses as of 07/09/2021) [facility]10[facility] History of Past illness Narrative* Problem Noted Date Resolved Date Sprain and strain of unspeci fied site of shoulder and upper arm 01/19/2008 02/11/2020 Hypothyroidism, acquired 09/11/2005 020 Abdominal pain, left lower quadrant 10/22/2017 documented as of this encounter (statuses as of 07/10/2021) [facility] History of Past illness Narrative* Problem Noted Date Resolved Date Sprain and strain of unspeci fied site of shoulder and upper arm 01/19/2008 02/11/2020 Hypothyroidism, acquired 09/11/2005 020 Abdominal pain, left lower quadrant 10/22/2017 documented as of this encounter (statuses as of 07/18/2021) [facility] History of Past illness Narrative* Problem Noted Date Resolved Date Sprain and strain of unspeci fied site of shoulder and upper arm 01/19/2008 02/11/2020 Hypothyroidism, acquired 09/11/2005 020 Abdominal pain, left lower quadrant 10/22/2017 documented as of this encounter (statuses as of 07/25/2021) [facility] History of Past illness Narrative* Problem Noted Date Resolved Date Sprain and strain of unspeci fied site of shoulder and upper arm 01/19/2008 02/11/2020 Hypothyroidism, acquired 09/11/2005 020 Abdominal pain, left lower quadrant 10/22/2017 documented as of this encounter (statuses as of 08/03/2021) [facility] History of Past illness Narrative* Problem Noted Date Resolved Date Sprain and strain of unspeci fied site of shoulder and upper arm 01/19/2008 02/11/2020 Hypothyroidism, acquired 09/11/2005 020 Abdominal pain, left lower quadrant 10/22/2017 documented as of this encounter (statuses as of 08/11/2021) [facility] History of Past illness Narrative* Problem Noted Date Resolved Date Sprain and strain of unspeci fied site of shoulder and upper arm 01/19/2008 02/11/2020 Hypothyroidism, acquired 09/11/2005 020 Abdominal pain, left lower quadrant 10/22/2017 documented as of this encounter (statuses as of 09/01/2021) [facility] History of Past illness Narrative* Problem Noted Date Resolved Date Sprain and strain of unspeci fied site of shoulder and upper arm 01/19/2008 02/11/2020 Hypothyroidism, acquired 09/11/2005 020 Abdominal pain, left lower quadrant 10/22/2017 documented as of this encounter (statuses as of 09/01/2021) [facility] History of Past illness Narrative* Problem Noted Date Resolved Date Sprain and strain of unspeci fied site of shoulder and upper arm 01/19/2008 02/11/2020 Hypothyroidism, acquired 09/11/2005 020 Abdominal pain, left lower quadrant 10/22/2017 documented as of this encounter (statuses as of 10/10/2021) [facility] History of Past illness Narrative* Problem Noted Date Resolved Date Sprain and strain of unspeci fied site of shoulder and upper arm 01/19/2008 02/11/2020 Hypothyroidism, acquired 09/11/2005 020 Abdominal pain, left lower quadrant 10/22/2017 documented as of this encounter (statuses as of 10/18/2021) [facility] History of Past illness Narrative* Problem Noted Date Resolved Date Sprain and strain of unspeci fied site of shoulder and upper arm 01/19/2008 02/11/2020 Hypothyroidism, acquired 09/11/2005 020 Abdominal pain, left lower quadrant 10/22/2017 documented as of this encounter (statuses as of 03/30/2022) [facility] History of Past illness Narrative* Problem Noted Date Resolved Date Sprain and strain of unspeci fied site of shoulder and upper arm 01/19/2008 02/11/2020 Hypothyroidism, acquired 09/11/2005 020 Abdominal pain, left lower quadrant 10/22/2017 documented as of this encounter (statuses as of 03/30/2022) [facility] History of Past illness Narrative* Problem Noted Date Resolved Date Sprain and strain of unspeci fied site of shoulder and upper arm 01/19/2008 02/11/2020 Hypothyroidism, acquired 09/11/2005 020 Abdominal pain, left lower quadrant 10/22/2017 documented as of this encounter (statuses as of 03/31/2022) [facility] Diagnosis Hypothyroidism, acquired Unspecified hypothyroidism Edema, unspecified type [facility] Diagnosis Anemia, unspecified type- Primary documented in this [facility]* Diagnosis Aortic valve stenosis, etiology of cardiac valve disease unspecified- Primary documented in this encounter [facility] note* Diagnosis Recurrent major depressive disorder, in remission (HCC) documented in this encounter [facility] note* Diagnosis Hypothyroidism, acquired Unspecified hypothyroidism documented in this encounter [facility] note* Diagnosis Edema, unspecified type documented in this encounter [facility] note* Diagnosis SBO (small bowel obstruction) ([facility])- Primary Unspecified intestinal obstruction documented in this encounter [facility] note* Diagnosis Essential hypertension, benign- Primary [...] acquired Unspecified hypothyroidism documented in this encounter [facility] note* Diagnosis Recurrent major depressive disorder, in remission (HCC) documented in this encounter [facility] note* Diagnosis Edema, unspecified type documented in this encounter [facility] note* Diagnosis Recurrent UTI (urinary tract infection)- Primary Urinary tract infection, site not specified Nonrheumatic aortic valve stenosis Aortic valve disorders Essential hypertension, benign Mixed hyperlipidemia Controlled type 2 diabetes mellitus without complication, without long-term current use of insulin (HCC) Hypothyroidism, unspecified type documented in this encounter [facility] note* Diagnosis Decreased vision- Primary Unspecified [...] Band keratopathy, left documented [facility] this encounter [facility]* Diagnosis Band keratopathy, 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) documented in this encounter [facility]* Diagnosis Nonrheumatic aortic valve stenosis- Primary Aortic valve disorders Aortic valve disorder Aortic valve disorders Essential hypertension, benign documented in this encounter [facility]* Diagnosis Hypothyroidism, acquired Unspecified hypothyroidism documented in this encounter [facility]* Diagnosis NO SHOW- Primary [facility] this encounter [facility]* Diagnosis Anxiety- Primary Anxiety state, unspecified documented in this encounter [facility] for referral (narrative)* Outpatient Procedure (Routine) - Authorized Specialty Diagnoses / Procedures Referred By Nell arthur Referred To [facility] Diagnoses Nonrheumatic aortic valve stenosis Procedures ECHO ECHO TTHRC R-T 2D W/WOM-MODE COMPL SPEC&COLR D Da Ocampo MD [address] [place] [address] [facility] [place] [address] [place] [address] Referral ID Status Reason Start Date Expiration Date Visits Requested Visits Authorized [id number] Authorized Auto-Generat ed Referral 07/23/2022 07/23/2023 1 1 * Consult, Test, Treat (Routine) - Authorized Specialty Diagnoses / Procedures Referred By Nell arthur Referred To Contact Urology Diagnoses Recurrent UTI (urinary tract infection) Procedures CONSULT TO UROLOGY OFFICE/OUTPATIENT [facility] 60-74 MINUTES Da Ocampo MD [address] [place] [address] Referral ID Status Reason Start Date Expiration Date Visits Requested Visits Authorized [id number] Authorized PCP Requested Referral 07/23/2022 07/23/[address] [facility] for referral (narrative)* Outpatient Procedure (Routine) - Pending Review Specialty Diagnoses / Procedures Referred By Contac t Referred To Contact [facility] Diagnoses Nonrheumatic aortic valve stenosis Procedures ECHO ECHO TTHRC R-T 2D W/WOM-MODE COMPL SPEC&COLR D Kevin Fox MD [address] [place] [address] Fax: [facility] [address] [place] [id number] Referral ID Status Reason Start Date Expiration Date Visits Requested Visits Authorized [id number] Pending Review Auto-Generat ed Referral 07/23/2023 01/21/2024 1 1 * Outpatient Procedure (Routine) - Pending Review Specialty Diagnoses / Procedures Referred By Contac t Referred To Contact [facility] Diagnoses Screening for ischemic heart disease Procedures ECG COMPLETE ECG ROUTINE ECG W/LEAST 12 LDS W/I&R Kevin Fox MD [address] [place] [address] [facility] [address] [place] [address] Referral ID Status Reason Start Date Expiration Date Visits Requested Visits Authorized [id number] Pending Review Auto-Generat ed Referral 3 01/14/2024 1 1 [facility] Reason for Referral Specialty Diagnoses / Procedures Referred By Contac t Referred To Contact Cardiology Diagnoses Aortic valve stenosis, etiology of cardiac valve disease unspecified Procedures CONSULT TO CARDIOLOGY OFFICE/OUTPATIENT [facility] MDM 60-74 MINUTES Da Ocampo MD [address] [place] [id number] Referral ID Status Reason Start Date Expiration Date Visits Requested Visits Authorized [id number] Authorized PCP Requested Referral 08/08/2021 08/08/2022 1 1 Specialty Diagnoses / Procedures Referred By Contac t Referred To Contact [facility] Diagnoses SBO (small bowel obstruction) ([facility]) Procedures CONSULT TO PHYSICAL THERAPY PHYSICAL THERAPY [facility] 45 MINS Da Ocampo MD [address] [place] [address] [facility] [place] [address] [place] [id number] Referral ID Status Reason Start Date Expiration Date Visits Requested Visits Authorized [id number] Authorized PCP Requested Referral Auto-Generate d Referral 03/28/2022 03/28/2023 99 99 Specialty Diagnoses / Procedures Referred By Contac t Referred To Contact Cardiology Diagnoses Nonrheumatic aortic valve stenosis Procedures CONSULT TO CARDIOLOGY OFFICE/OUTPATIENT [facility] 60-74 MINUTES Da Ocampo MD [address] [place] [address] Referral ID Status Reason Start Date Expiration Date Visits Requested Visits Authorized [id number] Authorized PCP Requested Referral 04/04/2022 04/04/2023 1 1 Specialty Diagnoses / Procedures Referred By Contac t Referred To [facility] Diagnoses Edema, unspecified type Localized swelling, mass and lump, left lower limb Procedures US LEG VEIN DVT UNL VAS LAB DUP-SCAN XTR VEINS UNILATERAL/LIMITED STUDY Da Ocampo MD [address] [place] [address] [facility] [place] [address] [place] [id number] Referral ID Status Reason Start Date Expiration Date Visits Requested Visits Authorized [id number] Authorized Auto-Generat ed Referral 04/04/2022 04/04/2023 1 [...] or prosecute any alcohol or drug abuse patient.[facility] HospitalIn the event this information is protected by the Federal Confidentiality of Alcohol and Drug Abuse Patient Records regulations: The Federal rules restrict any use of the information to criminally investigate or prosecute any alcohol or drug abuse patient.[facility] Hospital[facility] the event this information is protected by the Federal Confidentiality of Alcohol and Drug Abuse Patient Records regulations: The Federal rules restrict any use of the information to criminally investigate or prosecute any alcohol or drug abuse patient.[facility] HospitalIn the event this information is protected by the Federal Confidentiality of Alcohol and Drug Abuse Patient Records regulations: The Federal rules restrict any use of the information to criminally investigate or prosecute any alcohol or drug abuse patient.[facility] HospitalIn the event this information is protected by the Federal Confidentiality of Alcohol and Drug Abuse Patient Records regulations: The Federal rules restrict any use of the information to criminally investigate or prosecute any alcohol or drug abuse patient.[facility] HospitalIn the event this information is protected by the Federal Confidentiality of Alcohol and Drug Abuse Patient Records regulations: The Federal rules restrict any use of the information to criminally investigate or prosecute any alcohol or drug abuse patient.[facility] HospitalIn the event this information is protected by the Federal Confidentiality of Alcohol and Drug Abuse Patient Records regulations: The Federal rules restrict any use of the information to criminally investigate or prosecute any alcohol or drug abuse patient.[facility] HospitalIn the event this information is protected by the Federal Confidentiality of Alcohol and Drug Abuse Patient Records regulations: The Federal rules restrict any use of the information to criminally investigate or prosecute any alcohol or drug abuse patient.[facility] HospitalIn the event this information is protected by the Federal Confidentiality of Alcohol and Drug Abuse Patient Records regulations: The Federal rules restrict any use of the information to criminally investigate or prosecute any alcohol or drug abuse patient.[facility] HospitalIn the event this information is protected by the Federal Confidentiality of Alcohol and Drug Abuse Patient Records regulations: The Federal rules restrict any use of the information to criminally investigate or prosecute any alcohol or drug abuse patient.[facility] HospitalIn the event this information is protected by the Federal Confidentiality of Alcohol and Drug Abuse Patient Records regulations: The Federal rules restrict any use of the information to criminally investigate or prosecute any alcohol or drug abuse patient.[facility] HospitalIn the event this information is protected by the Federal Confidentiality of Alcohol and Drug Abuse Patient Records regulations: The Federal rules restrict any use of the information to criminally investigate or prosecute any alcohol or drug abuse patient.[facility] HospitalIn the event this information is protected by the Federal Confidentiality of Alcohol and Drug Abuse Patient Records regulations: The Federal rules restrict any use of the information to criminally investigate or prosecute any alcohol or drug abuse patient.[facility] HospitalIn the event this information is protected by the Federal Confidentiality of Alcohol and Drug Abuse Patient Records regulations: The Federal rules restrict any use of the information to criminally investigate or prosecute any alcohol or drug abuse patient.[facility] HospitalIn the event this information is protected by the Federal Confidentiality of Alcohol and Drug Abuse Patient Records regulations: The Federal rules restrict any use of the information to criminally investigate or prosecute any alcohol or drug abuse patient.[facility] HospitalIn the event this information is protected by the Federal Confidentiality of Alcohol and Drug Abuse Patient Records regulations: The Federal rules restrict any use of the information to criminally investigate or prosecute any alcohol or drug abuse patient.[facility] HospitalIn the event this information is protected by the Federal Confidentiality of Alcohol and Drug Abuse Patient Records regulations: The Federal rules restrict any use of the information to criminally investigate or prosecute any alcohol or drug abuse patient.[facility] HospitalIn the event this information is protected by the Federal Confidentiality of Alcohol and Drug Abuse Patient Records regulations: The Federal rules restrict any use of the information to criminally investigate or prosecute any alcohol or drug abuse patient.[facility] HospitalIn the event this information is protected by the Federal Confidentiality of Alcohol and Drug Abuse Patient Records regulations: The Federal rules restrict any use of the information to criminally investigate or prosecute any alcohol or drug abuse patient.[facility] HospitalIn the event this information is protected by the Federal Confidentiality of Alcohol and Drug Abuse Patient Records regulations: The Federal rules restrict any use of the information to criminally investigate or prosecute any alcohol or drug abuse patient.[facility] HospitalIn the event this information is protected by the Federal Confidentiality of Alcohol and Drug Abuse Patient Records regulations: The Federal rules restrict any use of the information to criminally investigate or prosecute any alcohol or drug abuse patient.[facility] HospitalIn the event this information is protected by the Federal Confidentiality of Alcohol and Drug Abuse Patient Records regulations: The Federal rules restrict any use of the information to criminally investigate or prosecute any alcohol or drug abuse patient.[facility] HospitalIn the event this information is protected by the Federal Confidentiality of Alcohol and Drug Abuse Patient Records regulations: The Federal rules restrict any use of the information to criminally investigate or prosecute any alcohol or drug abuse patient.[facility] HospitalIn the event this information is protected by the Federal Confidentiality of Alcohol and Drug Abuse Patient Records regulations: The Federal rules restrict any use of the information to criminally investigate or prosecute any alcohol or drug abuse patient.[facility] HospitalIn the event this information is protected by the Federal Confidentiality of Alcohol and Drug Abuse Patient Records regulations: The Federal rules restrict any use of the information to criminally investigate or prosecute any alcohol or drug abuse patient.[facility] HospitalIn the event this information is protected by the Federal Confidentiality of Alcohol and Drug Abuse Patient Records regulations: The Federal rules restrict any use of the information to criminally investigate or prosecute any alcohol or drug abuse patient.[facility] HospitalIn the event this information is protected by the Federal Confidentiality of Alcohol and Drug Abuse Patient Records regulations: The Federal rules restrict any use of the information to criminally investigate or prosecute any alcohol or drug abuse patient.[facility] HospitalIn the event this information is protected by the Federal Confidentiality of Alcohol and Drug Abuse Patient Records regulations: The Federal rules restrict any use of the information to criminally investigate or prosecute any alcohol or drug abuse patient.[facility] HospitalIn the event this information is protected by the Federal Confidentiality of Alcohol and Drug Abuse Patient Records regulations: The Federal rules restrict any use of the information to criminally investigate or prosecute any alcohol or drug abuse patient.[facility] HospitalIn the event this information is protected by the Federal Confidentiality of Alcohol and Drug Abuse Patient Records regulations: The Federal rules restrict any use of the information to criminally investigate or prosecute any alcohol or drug abuse patient.[facility] HospitalIn the event this information is protected by the Federal Confidentiality of Alcohol and Drug Abuse Patient Records regulations: The Federal rules restrict any use of the information to criminally investigate or prosecute any alcohol or drug abuse patient.[facility] HospitalIn the event this information is protected by the Federal Confidentiality of Alcohol and Drug Abuse Patient Records regulations: The Federal rules restrict any use of the information to criminally investigate or prosecute any alcohol or drug abuse patient.[facility] HospitalIn the event this information is protected by the Federal Confidentiality of Alcohol and Drug Abuse Patient Records regulations: The Federal rules restrict any use of the information to criminally investigate or prosecute any alcohol or drug abuse patient.[facility] HospitalIn the event this information is protected by the Federal Confidentiality of Alcohol and Drug Abuse Patient Records regulations: The Federal rules restrict any use of the information to criminally investigate or prosecute any alcohol or drug abuse patient.[facility] HospitalIn the event this information is protected by the Federal Confidentiality of Alcohol and Drug Abuse Patient Records regulations: The Federal rules restrict any use of the information to criminally investigate or prosecute any alcohol or drug abuse patient.[facility] HospitalIn the event this information is protected by the Federal Confidentiality of Alcohol and Drug Abuse Patient Records regulations: The Federal rules restrict any use of the information to criminally investigate or prosecute any alcohol or drug abuse patient.[facility] HospitalIn the event this information is protected by the Federal Confidentiality of Alcohol and Drug Abuse Patient Records regulations: The Federal rules restrict any use of the information to criminally investigate or prosecute any alcohol or drug abuse patient.[facility] Reason for Visit (unrecogniz ed section and content) Reason Onset Date Comments Refill Request 07/06/2021 Reason Comments Results Reason Comments Patient Update Reason Comments Patient Update Questions Returning Patient's Call Reason Comments Results Reason Comments Prescription Refills Reason Onset Date Comments Refill Request 10/10/2021 Reason Onset Date Comments Refill Request 10/18/2021 Reason Comments Orders Reason Comments [facility], PT plan of care Reason Comments [facility] nursing clarification Reason Comments 6 Month [...] valve stenosis Procedures CONSULT TO CARDIOLOGY OFFICE/OUTPATIENT [facility] 60-74 MINUTES Da Ocampo MD [address] [place] [address] Referral ID Status Reason Start Date Expiration Date V isits Requested Visits Authorized [id number] Closed PCP Requested Referral 04/04/2022 04/04/2023 1 1 Reason Onset Date Comments Refill Request 02/06/2023 Reason Comments Patient Question Patient Update Reason Comments Acute Visit Care Teams (unrecognized sec tion and content) Residential Aide Relationship Specialty Start Date End Date Da Ocampo MD [address] [place], [place] [address] PCP - General Family Practice 07/17/17 Nahed Batista E [address] [address] Consulting Urology 03/17/19 [facility] 10/09/18 Residential Aide Relationship Specialty Start Date End Date Da Ocampo MD [address] [place], [place] [address] PCP - General Family Practice 07/17/17 [facility] E [facility] [address] [address] Consulting Urology 03/17/19 [facility] 10/09/18 Residential Aide Relationship Specialty Start Date End Date Da Ocampo MD [address] [place], [place] [id number] PCP - General Family Practice 07/17/17 [facility] [address] [address] Consulting Urology 03/17/19 [facility] 10/09/18 Residential Aide Relationship Specialty Start Date End Date Da Ocampo MD [address] [place], [place] [id number] PCP - General Family Practice 07/17/17 Nahed Batista E [address] [address] Consulting Urology 03/17/19 [facility] 10/09/18 Residential Aide Relationship Specialty Start Date End Date Da Ocampo MD [address] [place], [place] [id number] PCP - General Family Practice 07/17/17 [facility] E [facility] [address] [address] Consulting Urology 03/17/19 [facility] 10/09/18 Residential Aide Relationship Specialty Start Date End Date Da Ocampo MD [address] [place], [place] [address] PCP - General Family Practice 07/17/17 [facility] E [facility] [address] [address] Consulting Urology 03/17/19 [facility] 10/09/18 Residential Aide Relationship Specialty Start Date End Date Da Ocampo MD [address] [place], [place] [address] PCP - General Family Practice 07/17/17 Nahed Batista E [facility] [address] [address] Consulting Urology 03/17/19 [facility] 10/09/18 Residential Aide Relationship Specialty Start Date End Date Da Ocampo MD [address] [place], [place] [address] PCP - General Family Practice 07/17/17 [facility] [address] [address] Consulting Urology 03/17/19 [facility] 10/09/18 Residential Aide Relationship Specialty Start Date End Date Da Ocampo MD [address] [facility] [place] [address] PCP - General Family Medicine 07/17/17 Nahed Batista E [address] [place] [address] Consulting Urology 03/17/19 [facility] 10/09/18 Residential Aide Relationship Specialty Start Date End Date Da Ocampo MD [address] [facility] [place] [address] PCP - General Family Medicine 07/17/17 Nahed Batista E [address] [place] [address] Consulting Urology 03/17/19 [facility] 10/09/18 Residential Aide Relationship Specialty Start Date End Date Da Oacmpo MD [address] [facility], [place] [address] PCP - General Family Medicine 07/17/17 Nahed Batista [address] [facility] [address] [place] [address] Consulting Urology 03/17/19 [facility] 10/09/18 Residential Aide Relationship Specialty Start Date End Date Da Ocampo MD [address] [facility] [place] [address] PCP - General Family Medicine 07/17/17 Nahed Batista E [address] [place] [address] Consulting Urology 03/17/19 [facility] 10/09/18 Residential Aide Relationship Specialty Start Date End Date Da Ocampo MD [address] [facility], [place] [address] PCP - General Family Medicine 07/17/17 Nahed Batista [address] [facility] [address] [place] [address] Consulting Urology 03/17/19 [facility] 10/09/18 Residential Aide Relationship Specialty Start Date End Date Da Ocampo MD [address] [facility], [place] [address] PCP - General Family Medicine 07/17/17 Nahed Batista [address] [place] [address] Consulting Urology 03/17/19 [facility] 10/09/18 Residential Aide Relationship Specialty Start Date End Date Da Ocampo MD [address] [facility], [place] [address] PCP - General Family Medicine 07/17/17 Nahed Batista [address] [facility] [address] [place] [address] Consulting Urology 03/17/19 [facility] 10/09/18 Residential Aide Relationship Specialty Start Date End Date Da Ocampo MD [address] [facility], [place] [address] PCP - General Family Medicine 07/17/17 Nahed Batista [address] [place] [address] Consulting Urology 03/17/19 [facility] 10/09/18 Residential Aide Relationship Specialty Start Date End Date Da Ocampo MD [address] [facility] [place] [address] PCP - General Family Medicine 07/17/17 Nahed Batista [address] [place] [address] Consulting Urology 03/17/19 [facility] 10/09/18 Residential Aide Relationship Specialty Start Date End Date Da Ocampo MD [address] [place] [address] PCP - General Family Medicine 07/17/17 Nahed Batista [address] [place] [address] Consulting Urology 03/17/19 [facility] 10/09/18 Residential Aide Relationship Specialty Start Date End Date Da Ocampo MD [address] [facility] [place] [address] PCP - General Family Medicine 07/17/17 Nahed Batista [address] [place] [address] Consulting Urology 03/17/19 [facility] 10/09/18 Residential Aide Relationship Specialty Start Date End Date Da Ocampo MD [address] [place] [address] PCP - General Family Medicine 07/17/17 Nahed Batista [address] [place] [address] [place] [address] Consulting Urology 03/17/19 [facility] 10/09/18 Residential Aide Relationship Specialty Start Date End Date Da Ocampo MD [address] [facility] [place] [address] PCP - General Family Medicine 07/17/17 Nahed Batista [address] [place] [facility] [address] [place] [address] Consulting Urology 03/17/19 [facility] 10/09/18 Residential Aide Relationship Specialty Start Date End Date Da Ocampo MD [address] [facility] [place] [address] PCP - General Family Medicine 07/17/17 Nahed Batista [address] [place] [facility] [address] [place] [address] Consulting Urology 03/17/19 [facility] 10/09/18 Residential Aide Relationship Specialty Start Date End Date Da Ocampo MD [address] [facility], [place] [address] PCP - General Family Medicine 07/17/17 Nahed Batista [address] [place] [facility] [address] [place], [place] [address] Consulting Urology 03/17/19 [facility] 10/09/18 Residential Aide Relationship Specialty Start Date End Date Da Ocampo MD [address] [place], [place] [address] PCP - General Family Medicine 07/17/17 Nahed Batista [address] [facility] [address] [place] [address] Consulting Urology 03/17/19 [facility] 10/09/18 INFORMATION SOURCE (unrecogn ized section and content) DATE CREATED AUTHOR AUTHOR'S ORGANIZ ATION 03/31/2023 [facility] FOR RECORDS PERTAINING TO PATIENTS WHO [...] BE BASED ON THE PRIMARY CLINICAL RECORDS. [employer] [facility]. provides no warranty or guarantee of the accuracy or completeness of information in this document.
[2023-04-23 06:33] LABS: Absolute Lymphocyte Count 2.16 X10^3/uL (0.83-4.51); Absolute Neutrophil Count 4.2 X10^3/uL (2.0-7.7); Basophil# 0.03 X10^3/uL; Basophil% 0.4 % (0-1); Eosinophil# 0.09 X10^3/uL; Eosinophils% 1.3 % (0-5); Hematocrit 38.4 % (37-47); Hemoglobin 12.5 g/dL (12.0-15.0); Lymphocyte # 2.16 X10^3/ul (0.83-4.51); Lymphocyte % 30.4 % (19-41); Mean Corp Hgb Conc 32.6 g/dL (32-36); Mean Corpuscular Hgb 28.5 pg (27.0-32.0); Mean Corpuscular Volume 87.5 fL (81-99); Monocyte# 0.61 X10^3/uL; Monocyte% 8.6 % (0-10); NRBC Flagged by Analyzer 0 % (0-5); Neutrophil # 4.21 X10^3/uL (2.7-7.7); Neutrophil % 59.2 % (47-70); Platelet Count 284 K/mm3 (150-450); RBC Distribution Width CV 12.7 % (11.6-14.6); RBC Distribution Width SD 40.4 fl (35.1-43.9); Red Blood Count 4.39 M/mm3 (4.2-5.4); White Blood Count 7.1 K/mm3 (4.4-11.0)
[2023-04-23 07:08] LABS: ALB/GLOB Ratio 0.8 RATIO (0.9-2.4); AST(SGOT) 11 U/L (15-37); Alanine Aminotransfer ALT/SGPT 18 U/L (13-56); Alkaline Phosphatase 91 U/L (45-117); Anion Gap 6 (5-15); BUN 22 mg/dL (7-18); BUN/Creat Ratio 31.9 RATIO (10-20); Calcium,Total 9.4 mg/dL (8.5-10.1); Chloride 101 mmol/L (98-107); Creatinine, Serum 0.69 mg/dL (0.55-1.02); EST Glomerular Filtration Rate 86 mL/min (>60); Est Glom Filt Rate - Afr Amer 104 mL/min (>60); Globulin 3.7 g/dL (2.2-4.2); Glucose 159 mg/dL (74-106); Potassium 3.5 mmol/L (3.5-5.1); Protein, Total 6.7 g/dL (6.4-8.2); Sodium Level 137 mmol/L (136-145)
== END ==
LOC: OLS.WHLTCC 05:00
PROVIDERS: PCP Family Medicine; Visit Provider Internal Medicine
DX: I10 Essential (primary) hypertension (principal); E03.9 Hypothyroidism, unspecified; R48.8 Other symbolic dysfunctions
CPT/HCPCS: 36415; 80053; 85025

== ENCOUNTER → 2023-04-30 | Outpatient (REF) | payer MEDICARE, OTHER, SELFPAY ==
[2023-04-30 09:56] LABS: Absolute Lymphocyte Count 2.15 X10^3/uL (0.83-4.51); Absolute Neutrophil Count 3.6 X10^3/uL (2.0-7.7); Basophil# 0.04 X10^3/uL; Basophil% 0.6 % (0-1); Eosinophil# 0.09 X10^3/uL; Eosinophils% 1.4 % (0-5); Hematocrit 39.9 % (37-47); Hemoglobin 13.2 g/dL (12.0-15.0); Lymphocyte # 2.15 X10^3/ul (0.83-4.51); Lymphocyte % 33.3 % (19-41); Mean Corp Hgb Conc 33.1 g/dL (32-36); Mean Corpuscular Hgb 28.9 pg (27.0-32.0); Mean Corpuscular Volume 87.5 fL (81-99); Monocyte# 0.57 X10^3/uL; Monocyte% 8.8 % (0-10); NRBC Flagged by Analyzer 0 % (0-5); Neutrophil # 3.57 X10^3/uL (2.7-7.7); Neutrophil % 55.4 % (47-70); Platelet Count 302 K/mm3 (150-450); RBC Distribution Width CV 12.3 % (11.6-14.6); RBC Distribution Width SD 39.6 fl (35.1-43.9); Red Blood Count 4.56 M/mm3 (4.2-5.4); White Blood Count 6.5 K/mm3 (4.4-11.0)
[2023-04-30 10:31] LABS: Anion Gap 8 (5-15); BUN 22 mg/dL (7-18); BUN/Creat Ratio 28.4 RATIO (10-20); Chloride 102 mmol/L (98-107); Creatinine, Serum 0.77 mg/dL (0.55-1.02); EST Glomerular Filtration Rate 75 mL/min (>60); Est Glom Filt Rate - Afr Amer 91 mL/min (>60); Glucose 147 mg/dL (74-106); Potassium 2.9 mmol/L (3.5-5.1); Sodium Level 137 mmol/L (136-145)
== END ==
LOC: OLS.WHLTCC 05:00
PROVIDERS: PCP Family Medicine; Visit Provider Internal Medicine
DX: E03.9 Hypothyroidism, unspecified (principal); R62.7 Adult failure to thrive
CPT/HCPCS: 36415; 80048; 85025

== ENCOUNTER → 2023-05-02 | Outpatient (REF) | payer MEDICARE, OTHER, SELFPAY ==
--- OUTSIDE RECORDS SUMMARY | 2023-05-02 06:01 | XMS RPT_ITS | CCD ---
Author Name Unknown Address [address] [place] [address] Organization [facility] Care Team Providers Care Abattoir Supervisor Name Role Phone Da Ocampo MD Primary Care Provider Nahed Batista Unavailable JERRY NUGENT Attending Unavailable JERRY NUGENT Admitting Unavailable DA OCAMPO Primary Care Unavailable Da cOampo MD Primary Care Provider Nahde Batista Unavailable DA OCAMPO Primary Care Unavailable DA OCAMPO Attending Unavailable DA OCAMPO Primary Care Unavailable DA OCAMPO Attending Unavailable KEVIN FOX Attending Unavailable DA OCAMPO Primary Care Unavailable DA OCAMPO Referring Unavailable JERRY NUGENT Attending Unavailable DA OCAMPO Primary Care Unavailable RIGO ABREU Attending Unavailable DA OCAMPO Primary Care Unavailable DA OCAMPO Primary Care Unavailable DA OCAMPO Referring Unavailable DA OCAMPO Primary Care Unavailable DA OCAMPO Attending Unavailable JERRY NUGENT Attending Unavailable DA OCAMPO Primary Care Unavailable DA OCAMPO Primary Care Unavailable DA OCAMPO Referring Unavailable DA OCAMPO Primary Care Unavailable DA OCAMPO Attending Unavailable DA OCAMPO Primary Care Unavailable PHONG TREJO Attending Unavailable Allergies Allergy Classification Reported Allergen(s) Allergy Type Date of Onset Reaction(s) Facility (20 sources) Amoxicillin / Clavulanate; Translations: [AMOXICILLIN-POT CLAVULANATE] Drug Allergy 07-18-19 18 Itching [facility] (13 sources) Angiotensin II receptor antagonist; Translations: [ARB-ANGIOTENSIN RECEPTOR ANTAGONIST] Drug Allergy 11-12-19 19 Angioedema [facility] Work Phone: [phone] (20 sources) Atenolol; Translations: [ATENOLOL] Drug Allergy 08-08-19 09 Itching [facility] Work Phone: [phone] (20 sources) cefdinir; Translations: [CEFDINIR] Drug Allergy 07-18-19 18 Rash [facility] (20 sources) Cephalexin; Translations: [CEPHALEXIN] Drug Allergy 10-12-19 19 Rash [facility] Work Phone: [phone] (20 sources) Ciprofloxacin; Translations: [CIPROFLOXACIN] Drug Allergy 11-13-19 19 Other: See Comments [facility] Work Phone: [phone] (20 sources) Doxycycline; Translations: [DOXYCYCLINE CALCIUM] Drug Allergy 01-10-20 05 [facility] Work Phone: [phone] (20 sources) meloxicam; Translations: [MELOXICAM] Drug Allergy 07-18-19 18 [facility] (20 sources) metroNIDAZOLE; Translations: [METRONIDAZOLE HCL] Drug Allergy 01-10-20 05 [facility] Work Phone: [phone] (20 sources) Promethazine; Translations: [PROMETHAZINE HCL] Drug Allergy 01-10-20 05 [facility] Work Phone: [phone] (20 sources) Sulfamethoxazole / Trimethoprim; Translations: [SULFAMETHOXAZOLE-TR IMETHOPRIM] Drug Allergy 07-18-19 18 [facility] (13 sources) Tetracycline (class of antibiotic); Translations: [TETRACYCLINES] Propensity to adverse reactions 01-10-20 05 [facility] Work Phone: [phone] (13 sources) Influenza Virus Vaccines; Translations: [INFLUENZA VIRUS VACCINES] Propensity to adverse reactions 02-26-20 06 Rash, Swelling, Itching [facility] Work Phone: [phone] (20 sources) Angiotensin II receptor antagonist Drug Allergy 11-12-19 19 Angioedema [facility] Work Phone: [phone] (20 sources) Tetracycline (class of antibiotic) Propensity to adverse reactions 01-10-20 05 [facility] Work Phone: [phone] (20 sources) Influenza Virus Vaccines Propensity to adverse reactions 02-26-20 06 Rash, Swelling, Itching [facility] Work Phone: (16 sources) Clavulanate; Translations: [CLAVULANIC ACID] Drug Allergy 10-12-19 Unknown [facility] (16 sources) fluticasone; Translations: [FLUTICASONE] Drug Allergy 10-12-19 Unknown [facility] (16 sources) Pneumococcal vaccine; Translations: [PNEUMOCOCCAL VACCINE] Drug Allergy 10-12-19 Unknown [facility] (16 sources) Sulfamethoxazole; Translations: [SULFAMETHOXAZOLE] Drug Allergy 10-12-19 Unknown [facility] (16 sources) Trimethoprim; Translations: [TRIMETHOPRIM] Drug Allergy 10-12-19 Unknown [facility] Medications Current Medications Medication Drug Class(es) [...] [Obesity, unspecified] Onset: 04-04-2022 04-04-2022 Chronic Other skin disorders (1 source) Disorder of [...] Other Problems Problem Classification Problem Date Documented Date Episodic/Chronic 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) History [...] of elevated lipids] Onset: 04-04-2022 Episodic Other screening for suspected conditions (not mental disorders or infectious disease) (1 source) Encounter for screening for cardiovascular disorders; Translations: [Screening for ischemic heart disease] Onset: 01-21-2023 Episodic Other skin disorders (16 sources) Xeroderma; 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] Onset: 04-04-2022 04-04-2022 Episodic Residual codes; unclassified (20 sources) History of excision of small intestine; Translations: [Acquired absence of other specified parts of digestive tract] Onset: 04-04-2022 Episodic Spondylosis; intervertebral disc disorders; other back [...] 74 mm[Hg] Kevin Fox MD Work Phone: [facility] 01-21-2023 15:03-0400 Heart rate 65 /min Kevin Fox MD Work Phone: [facility] 01-21-2023 15:03-0400 SaO2% (BldA) [Mass fraction] 97 % Kevin Fox MD Work Phone: [facility] 01-21-2023 15:03-0400 Systolic blood pressure 143 mm[Hg] Kevin Fox MD Work Phone: [facility] 11-16-2022 13:17-0400 Body weight 76.66 kg Da Ocampo MD Work Phone: [facility] 11-16-2022 13:17-0400 Diastolic blood pressure 62 mm[Hg] Da Ocampo MD Work Phone: [facility] 11-16-2022 13:17-0400 Heart rate 66 /min Da Ocampo MD Work Phone: [facility] 11-16-2022 13:17-0400 SaO2% (BldA) [Mass fraction] 97 % Da Ocampo MD Work Phone: [facility] 11-16-2022 13:17-0400 Systolic blood pressure 134 mm[Hg] Da Ocampo MD Work Phone: [facility] 07-23-2022 14:20-0400 Body temperature 97.59 [degF] Da Ocampo MD Work Phone: [facility] 07-23-2022 14:20-0400 Diastolic blood pressure 66 mm[Hg] Da Ocampo MD Work Phone: [facility] 07-23-2022 14:20-0400 Heart rate 62 /min Da Ocampo MD Work Phone: [facility] 07-23-2022 14:20-0400 SaO2% (BldA) [Mass fraction] 96 % Da Ocampo MD Work Phone: [facility] 07-23-2022 14:20-0400 Systolic blood pressure 144 mm[Hg] Da Ocampo MD Work Phone: [facility] 04-04-2022 15:49-0500 Body height 165.1 cm Da Ocampo MD Work Phone: [facility] 04-04-2022 15:49-0500 Body weight 76.2 kg Da Ocampo MD Work Phone: [facility] 04-04-2022 15:49-0500 Diastolic blood pressure 70 mm[Hg] Da Ocampo MD Work Phone: [facility] 04-04-2022 15:49-0500 Heart rate 64 /min Da Ocampo MD Work Phone: [facility] 04-04-2022 15:49-0500 SaO2% (BldA) [Mass fraction] 95 % Da Ocampo MD Work Phone: [facility] 04-04-2022 15:49-0500 Systolic blood pressure 142 mm[Hg] Da Ocampo MD Work Phone: [facility] Encounters Encounter Date Encounter Type Care Provider Facility Start: 03-29-2023 End: 03-29-2023 ambulatory DA OCAMPO Facility:[facility] Start: 02-18-2023 End: 02-18-2023 ambulatory Da Ocampo MD Work Phone: [facility] Plan of Treatment Date Care Activity Detail Author Start: 07-06-2027 Urine microalbumin profile [facility] Start: 11-17-2023 Hepatitis B surface antibody level LDL Cholesterol [facility] Start: 07-24-2023 Hepatitis B surface antibody level LDL CHOLESTEROL [facility] Start: 07-23-2023 End: 01-22-2024 Echocardiography ECHO Cardiology Routine Nonrheumatic aortic valve stenosis Expected: 07/23/2023, Expires: 01/22/2024 [facility] Work Phone: Immunizations Immunization Date Immunization Notes Care Provider Fa [facility] 07-05-2017 tetanus and diphther ia toxoids, adsorbed, preservative free, for adult use (2 Lf of tetanus toxoid and 2 Lf of diphtheria toxoid) Da Ocampo MD Work Phone: [facility] Work Phone: 07-05-2017 tetanus toxoid, redu luz marina diphtheria toxoid, and acellular pertussis vaccine, adsorbed Da Ocampo MD Work Phone: [facility] 12-10-2013 TD(adult) unspecifie d formulation Da Ocampo MD Work Phone: [facility] 10-20-2006 tetanus and diphther ia toxoids, adsorbed, preservative free, for adult use (2 Lf of tetanus toxoid and 2 Lf of diphtheria toxoid) Da Ocamop MD Work Phone: [facility] 09-30-2006 tetanus and diphther ia toxoids, adsorbed, preservative free, for adult use (2 Lf of tetanus toxoid and 2 Lf of diphtheria toxoid) Da Ocampo MD Work Phone: [facility] Work Phone: 02-22-2006 influenza virus vacc ine, unspecified formulation Da Ocampo MD Work Phone: [facility] Work Phone: 02-22-2006 pneumococcal polysaccharide vaccine, 23 valent Da Ocampo MD Work Phone: [facility] Work Phone: 02-22-2006 pneumococcal vaccine , unspecified formulation Da Ocampo MD Work Phone: [facility] 09-23-1994 tetanus and diphther ia toxoids, adsorbed, preservative free, for adult use (2 Lf of tetanus toxoid and 2 Lf of diphtheria toxoid) Da Ocampo MD Work Phone: [facility] Payers Date Payer Category Payer [employer] ( and others) [id number] 2022 Unknown FOR LIFE [id number] 2022-Present [phone] [address] [place] [address] Indemnity [id number] 2018 Unknown [employer] LIFE [id number] 2018-Present [phone] [address] [place] [address] Indemnity [id number] 2001 Medicare MEDICARE MEDICAR E A AND B [id number] 2001-Present [phone] [address] [address] [place] [address] Medicare [id number] 2001 Medicare MEDICARE MEDICAR E A AND B [id number] 2001-Present [phone] [place] [address] Medicare [id number] 2001 Medicare [id number] Social History Date Type Detail Facility Start: 07-17-2017 End: 04-04-2022 Tobacco smoking status NHIS Never smoked tobacco [facility] Start: 05-05-2021 End: 01-21-2023 Alcohol intake Current non-drinker of alcohol (finding) [facility] Start: 10-09-2018 History SDOH Social Connections Phone 5 [facility] Start: 10-09-2018 History SDOH Social Connections Living 3 [facility] Start: 11-19-2019 History SDOH Food Worry 1 [facility] Start: 11-19-2019 History SDOH Transpo rt Med 2 [facility] Start: 1935 Sex Assigned At Not on file [facility] Start: 04-02-2021 End: 07-25-2021 Exposure to SARS-CoV-2 (event) Not sure [facility] Start: 07-17-2017 End: 04-04-2022 Tobacco use and exposure Smokeless tobacco non-user [facility] Start: 10-09-2018 End: 08-07-2022 History of Social function [facility] Start: 10-09-2018 End: 08-07-2022 Social connection and isolation panel [facility] Attends [employer] Not on file [facility] Work Phone: Are you now , , , , never or living with a partner? [facility] (I/We) worried wheth er (my/our) food would run out before (I/we) got money to buy more. Never true [facility] Work Phone: Start: 05-04-2020 Gender identity Identifies as female gender (finding) [facility] Start: 05-04-2020 Sexual orientation Heterosexual (fin florencio) [facility] Medical Equipment Procedure Code Equipment Code Equipment Origin al Text Equipment Identifier Dates [employer] [facility] Tis 8x5 mm Ttplst - [id number] Start: 01-31-2012 Goals Date Patient Goal Desired Activity /State Personal health goal Personal health goal Clinical Notes 01-19-2008 to 03-29-2023 Da Ocampo MD - 02/18/2023 9:00 AM ESTTelephone Encounter - Caridad Wong RN - 02/12/2023 4:56 PM ESTTelephone Encounter - Lisbet Springer LPN - 02/12/2023 3:36 PM EST Note Date & Type Note Facility 03-29-2023 Note HNO ID: [id number] Author: PHONG TREJO APRN.ELECTRICAL LABORATORY TECHNICIAN Service: ? 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 States this is [...] gram tablet Take (more content not included)... [facility] 02-18-2023 Note HNO ID: [id number] Author: Da Ocampo MD Service: ? Author [...] visit. Either the patient or their legal contracts representative has been informed of the risks [...] Take 1 tablet by mouth twice daily. BRNEMQQQ-KYZBYOFIE-LYEJUXUA 3.5 MG/ML-10,000 UNIT/ML-0.1% EYE DROPS Use 1 Drop in both eyes twice daily. vit C,T-Yx-vlfxg-lutein-zeaxan (PRESERVISION AREDS-2) 250-90-40-1 mg Take 1 capsule [...] EPITHELIUM W/APPL C (more content not included)... [facility] 02-18-2023 History of Present illness Narrative Patient [...] visit. Either the patient or their legal contracts representative has been informed of the risks [...] Take 1 tablet by mouth twice daily. AZQBTJCH-SROPWBMGW-EKZANXJA 3.5 MG/ML-10,000 UNIT/ML-0.1% EYE DROPS Use 1 Drop in both eyes twice daily. vit C,P-Aa-edyda-lutein-zeaxan (PRESERVISION AREDS-2) 250-90-40-1 mg Take 1 capsule [...] with more than 50% of the total zhmb-ld-febl time of the visit in counseling / coordination of care. Da Ocampo documented in this encounter [facility] 02-12-2023 Note HNO ID: [id number] Author: Da Ocampo MD Service: ? Author Type: Physician Type: Progress Notes Filed: 02/12/2023 3:12 PM Note Text: Attempted to call multiple times over 10 minute period. Was busy. Unable to connect via virtual. [facility] 02-12-2023 Miscellaneous Notes Patient called in. States she has been by the phone all day. She is not sure why she never got Dr. Ocampo's calls. Thinks she is having some troubles with her phone. Appt rescheduled as advised. Caridad Wong, RN Phone continues to ring busy. Advised not to call the cell number. Attempted to call patient literally six times over 10 minutes and phone remained busy. Also attempted daughter's phone with no answer. Can we check on her. If continues to need seen will need rescheduled. documented in this encounter [facility] 02-12-2023 History of Present illness Narrative Attempted to call multiple times over 10 minute period. Was busy. Unable to connect via virtual. documented in this encounter [facility] 02-11-2023 Miscellaneous Notes Called patient but [...] thought in December. documented in this encounter [facility] 02-11-2023 Miscellaneous Notes Called patient but [...] advise RADHA Espinoza documented in this encounter [facility] 02-08-2023 Miscellaneous Notes Spoke with patient and scheduled for tu02/12/23 @ 3pm. Teresa Sarmiento Called patient twice. [...] can be reviewed by Dr. Ocampo in [facility]. Patient asking when Dr. Ocampo wants her to see him, however it won't be until next year. Please call patient with reply. Thank you. documented in this encounter [facility] 02-06-2023 Miscellaneous Notes [facility]-11/16/22 Labs-11/16/22 NOV-02/12/23 Pharm. stated Pt has no refills and needs new Rx Bette Small LPN documented in this encounter [facility] 01-21-2023 Note HNO ID: [id number] Author: Kevin Fox MD Service: ? Author Type: Physician Type: Progress Notes Filed: 01/21/2023 5:17 PM Note Text: Kevin Fox MD Interventional Cardiology [address] [id number] Chief Complaint Patient presents with: New Patient [...] Take 1 tablet by mouth twice daily. FBTFNKLZ-BVXOGFAUF-PYCUTBEF 3.5 MG/ML-10,000 UNIT/ML-0.1% EYE DROPS Use 1 Drop in both eyes twice daily. vit C,B-As-rjnml-lutein-zeaxan (PRESERVISION AREDS-2) 250-90-40-1 m (more content not included)... [facility] 01-21-2023 History of Present illness Narrative Images from the original note were not included. Kevin Fox MD Interventional Cardiology [address] [place] [address] Chief Complaint Patient presents with: New Patient [...] Take 1 tablet by mouth twice daily. FMCZYHCN-PRMMQDUPQ-EZPOJTQF 3.5 MG/ML-10,000 UNIT/ML-0.1% EYE DROPS Use 1 Drop in both eyes twice daily. vit C,Y-Hp-okgyr-lutein-zeaxan (PRESERVISION AREDS-2) 250-90-40-1 mg Take 1 capsule [...] 0.9% 10 mL injection (DEFINITY) INTRAVENOUS DIRECTED PRKevin Guadarrama MD sodium chloride 0.9 % (flush) 10 mL (BD POSIFLUSH) 10 mL INTRAVENOUS DIRECTED Kevin Kim MD perflutren lipid microspheres 1.3 mL in NaCl (PF) 0.9% 10 mL injection (DEFINITY) INTRAVENOUS DIRECTED PRDa Ambrose MD sodium chloride 0.9 % (flush) 10 [...] correct any errors. documented in this encounter [facility] 12-12-2022 Note HNO ID: [id number] Author: Jeryr Nugent MD Service: ? Author Type: Physician [...] of its relevant components. Jerry Nugent MD [facility] 12-07-2022 Note HNO ID: [id number] Author: Rigo Abreu, EVER Service: ? 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 Nugent next week 3. 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 Giuliana Abreu, EVER December 07, 2022 4:20 PM [facility] 12-07-2022 History of Present illness Narrative 1. 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 Nugent next week 3. 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 Giuliana Abreu, EVER December 07, 2022 4:20 PM documented in this encounter [facility] 12-07-2022 Miscellaneous Notes Patient scheduled with Dr. Abreu 12/07/22 per message from Leyla Per secure Chat Message with Dr. Nugent: can we get her seen by Dr Abreu tomorrow for fluorescein and bandage contact lens replacement if needed? Routed to Emiloi Colon and [facility] staff to schedule. Aleja [...] note were not included. Leyla Garcia, OA You 18 minutes ago (3:43 PM) BL This patient just underwent corneal surgery at [place] on 12/04/2022. I pasted below the PSR's [...] week as well. documented in this encounter [facility] documented as of this encounter (statuses as of 12/07/2022) [facility]09-12-2023 History of Past illness Narrative* Problem [...] of this encounter (statuses as of 12/08/2022) [facility]12[facility] History of Past illness Narrative* Problem [...] of this encounter (statuses as of 01/22/2023) [facility]-12[facility]2023 History of Past illness Narrative* Problem [...] of this encounter (statuses as of 02/06/2023) [facility]20[facility] History of Past illness Narrative* Problem Noted Date Diagnosed Date Resolved Date Band keratopathy, left 12/04/202212/04 Accidental fall 04/04/2022 04/04/2022 Acute low back pain 04/04/2022 04/04/19 Adverse effect of drug 04/04/202204/04 Closed fracture [...] of this encounter (statuses as of 02/08/2023) [facility] History of Past illness Narrative* Problem [...] of this encounter (statuses as of 02/11/2023) [facility] History of Past illness Narrative* Problem [...] of this encounter (statuses as of 02/13/2023) [facility] History of Past illness Narrative* Problem [...] of this encounter (statuses as of 02/13/2023) [facility] History of Past illness Narrative* Problem [...] of this encounter (statuses as of 02/18/2023) [facility]08-25-2023 NoteHNO ID: [id number] Author: Da Ocampo MD Service: ? Author [...] medication. Looks like from scanned document to [employer]. Is for OAB Sore on bottom is [...] Take 1 tablet by mouth twice daily. VVWMTNOM-EANAWRSTN-IOWZBYEN 3.5 MG/ML-10,000 UNIT/ML-0.1% EYE DROPS Use 1 Drop in both eyes twice daily. vit C,H-Fr-jivwp-lutein-zeaxan (PRESERVISION AREDS-2) 250-90-40-1 mg Take 1 capsule [...] Hyperlipidemia Other and un (more content not included)...[facility] History of Present illness Narrative* Da Ocampo MD - 11/16/2022 1:13 PM EDT Patient presents with: Pre-Op Exam HPI: Patient presents today for office visit for preop. Scheduled for eye surgery on 12/04. Having:REMOVE CORNEAL EPITHELIUM W/ APPLICATION OF CHELATION by Dr. Nugent. Is on a new medication from urology and not sure of name of medication. Looks like from scanned document to [employer]. Is for OAB Sore on bottom is [...] Take 1 tablet by mouth twice daily. WKDAGKJV-AEXKZPLZX-YJOZYHIA 3.5 MG/ML-10,000 UNIT/ML-0.1% EYE DROPS Use 1 Drop in both eyes twice daily. vit C,Q-Im-uhndo-lutein-zeaxan (PRESERVISION AREDS-2) 250-90-40-1 mg Take 1 capsule [...] weeks Da Ocampo MD [facility] Miscellaneous Notes* Telephone Encounter - Ne Kelsey - 10/30/2022 1:08 PM EDT Patient has been scheduled for 12/04/[address] Nugent in [place] * Telephone Encounter - Aleja Castanon RN - 10/19/2022 2:25 PM EDT Patient is inquiring about setting up surgery in [place]. Aleja Castanon RN October 19, 2022 2:26 PM [facility] Miscellaneous Notes* Telephone Encounter - Ne Kelsey - 10/24/2022 1:47 PM EDT Called patient to schedule chelation left eye with Dr. Jerry Nugent at the [place] location. Patient states she needs to have it done, but she's not able to see to write anything down, and asked me to call her daughter, Josey to schedule it. I did offer her 11/21/22 or 12/04 22. Patient states she prefers 12/04/22, but to check with her daughter about the dates. Per Epic notes, the cell phone number of [phone] is for Josey, so I called this number but got a voicemail for Zo. I left a message for Josey to call me back and schedule the surgery on behalf of the patient. (Per Patient contact numbers, Josey's phone number is actually [phone]. I called it and left a voicemail explaining that the patient asked me to contact her to schedule hersurgery and that I also left a voicemail for Zo. Requested a call back from either one to assist with patient scheduling. [facility] Miscellaneous Notes* Telephone Encounter - Luisito [...] know the name of the medication. [facility] [place]. 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 Also wants to know if she has to taking her levothyroxine alone or can she take other meds with it at the same time? Please advise at [phone] [facility]23 NoteHNO ID: [id number] Author: Jerry Nugent MD Service: ? Author [...] Jerry Nugent MD October 17, 2022 10:56 [facility]07-19-2023 Miscellaneous Notes* Telephone Encounter - Weathers Katharine - 10/10/2022 5:00 PM EDT Patient has been identified by name and date of : Yes Requested Prescriptions Pending Prescriptions Disp Refills metFORMIN (GLUCOPHAGE) 500 mg tablet Sig: Take 1 tablet by mouth three times daily. [facility]-04/04/22 Labs-07/23/22 NOV-none RX INSTRUCTIONS: Patient requesting a call when RX is approved and sent to the pharmacy. Katharine Weathers [facility]23 NoteHNO ID: [id number] Author: Da Ocampo MD Service: ? Author Type: Physician Type: Progress Notes Filed: 07/23/2022 2:52 PM Note Text: Patient presents with: ER F/U HPI: Patient presents today for office visit for ER F/U. Went to [facility] ER on 07/18/22 due to generalized weakness. Dx with UTI and given Macrobid. Abx completed. Her work up was otherwise ok. Went back to [facility] on 07/22/22 due to not feeling [...] Take 1 tablet by mouth twice daily. [id number]-TFTEJMQPP-VWRNSPFQ 3.5 MG/ML-10,000 UNIT/ML-0.1% EYE DROPS Use 1 Drop in both eyes twice daily. vit C,Q-Ao-oogqe-lutein-zeaxan (PRESERVISION AREDS-2) 250-90-40-1 mg Take 1 capsule [...] ESPINAL: BP 144/66 Pulse 62 Temp 36.4 ?C (97.6 ?F) SpO2 96% Last 4 Encounter Wt Readings: Date: Wt: 04/04/2022 76.2 kg (168 (more content not included)...[facility] History of Present illness Narrative* Da Ocampo MD - 07/23/2022 2:20 PM EDT Patient presents with: ER F/U HPI: Patient presents today for office visit for ER F/U. Went to [facility] ER on 07/18/22 due to generalized weakness. Dx with UTI and given Macrobid. Abx completed. Her work up was otherwise ok. Went back to [facility] on 07/22/22 due to not feeling [...] Take 1 tablet by mouth twice daily. XMRZZYNI-RDELKRJOW-PXECHWUM 3.5 MG/ML-10,000 UNIT/ML-0.1% EYE DROPS Use 1 Drop in both eyes twice daily. vit C,I-Kt-mgacl-lutein-zeaxan (PRESERVISION AREDS-2) 250-90-40-1 mg Take 1 capsule [...] due on 01/18/2022- has seen her eye drGail VITALS: BP 144/66 Pulse 62 Temp 36.4 C [...] BLD Da Ocampo MD documented [facility] encounter[facility] Miscellaneous Notes* Telephone Encounter - Mary [...] you. Mary Jordan RN documented in this encounterL[facility]01-26-[facility]23 Miscellaneous Notes* Telephone Encounter - Macarena [...] notify patient. Macarena Reyes documented in this encounterL[facility]01-16-2023 Miscellaneous Notes* Telephone Encounter - Charlotte [...] advise, Shawna Looney RN documented in this encounterL[facility]01-16-2023 Miscellaneous Notes* Telephone Encounter - Tonya [...] patient. Tonya Alarcon Pss documented in this encounterLima [facility] Hospital01-11-2023 History of Present illness Narrative* Da Ocampo [...] Take 1 tablet by mouth twice daily. MHZLNWYL-ONPVHMTZG-KIODDSQS 3.5 MG/ML-10,000 UNIT/ML-0.1% EYE DROPS Use 1 Drop in both eyes twice daily. vit C,Z-Dh-qbymt-lutein-zeaxan (PRESERVISION AREDS-2) 250-90-40-1 mg Take 1 capsule [...] - ICD9: V10.43, ICD10: Z85.[address] Wyneski, urogyn 9. Recurrent major depressive disorder, in [...] TABLET Da Ocampo MD documented in this encounterL[facility]01-11-[facility]23 History of Past illness Narrative* Problem [...] of this encounter (statuses as of 04/05/2022) [facility] Narrative* Problem [...] of this encounter (statuses as of 04/09/2022) [facility] Narrative* Problem [...] of this encounter (statuses as of 04/09/2022) [facility] Narrative* Problem [...] of this encounter (statuses as of 04/19/2022) [facility] Narrative* Problem [...] of this encounter (statuses as of 05/31/2022) [facility] Narrative* Problem [...] of this encounter (statuses as of 07/24/2022) [facility] Narrative* Problem [...] of this encounter (statuses as of 10/11/2022) [facility] Narrative* Problem [...] of this encounter (statuses as of 10/24/2022) [facility] Narrative* Problem [...] of this encounter (statuses as of 10/30/2022) [facility] Narrative* Problem [...] of this encounter (statuses as of 11/16/2022) [facility] Miscellaneous Notes* Telephone Encounter - Robson [...] - 03/30/2022 11:18 AM EST Cecy with [facility] nursing calling for clarification on Potassium and Preservation. Pt has instructed her she is not taking these. Please advise Cecy. Althea Herrera LPN documented in this encounterLima [facility] Hospital01-05-2023 Miscellaneous Notes* Telephone Encounter - Da Ocampo MD - 03/29/2022 4:55 PM EST noted * Telephone Encounter - Althea Herrera LPN - 03/29/2022 4:09 PM EST Joaquina with [facility], PT calling with plan of care. They will see pt 1 time a week for 1 week, then2 times a week for 4 weeks for strengthening, gait, transfers and fall prevention. No call back needed Althea Herrera LPN documented in this encounterLima [facility] Hospital01-04-2023 Miscellaneous Notes* Telephone Encounter - Yas Gamble Ma - 03/28/2022 11:49 AM EST Order faxed to [facility], verbal order given to Sandy * Telephone Encounter - Melvina Thomas RN - 03/28/2022 11:15 AM EST Sandy from [facility] called in and reports Pt was admitted to [facility] on 03/23/22 for a small bowel [...] is a confidential line. documented in this encounterLima [facility] Hospital07-27-2022 Miscellaneous Notes* Telephone Encounter - Tricia [...] you. Tricia Posada RN documented in this encounterLima [facility] Hospital07-19-2022 Miscellaneous Notes* Telephone Encounter - Joaquina Woo Pss - 10/10/2021 4:39 PM EDT Patient needs her levothyroxine sent to the [facility] in [place]. no longer covers through [employer]. * Telephone Encounter - Joaquina Woo Pss - 10/10/2021 4:38 PM EDT Pharmacy verified in [facility] Patient has been identified by name and [...] advise. Joaquina Woo Pss documented in this encounterLima [facility] Hospital06-10-2022 Miscellaneous Notes* Telephone Encounter - Robson Alas LPN - 09/01/2021 4:08 PM EDT Pt needs to contact orginal prescriber for this medication. Robson Alas LPN * Telephone Encounter - Macarena Reyes - 09/01/2021 4:04 PM EDT Patient asking [...] to the pharmacy. Please call patient at: [phone] Macarena Reyes documented in this encounterLima [facility] Hospital06-10-2022 Miscellaneous Notes* Telephone Encounter - Robson [...] notify patient. Macarena Reyes documented in this encounterLima [facility] Hospital05-20-2022 Miscellaneous Notes* Telephone Encounter - Tonya Santos - 08/11/2021 10:51 AM EDT 2nd attempt: LVMTCB Thank you, Tonya Santos * Telephone Encounter - Jennifer Gomez Pss - 08/09/2021 1:43 PM EDT 1st attempt. Unable to leave message. No VM. Patient to schedule Card consult. Ramírez is end of December. Please offer Grace or Veronica (Mathias) if patient requesting sooner appt. * Telephone [...] Recommend to see cardiology documented in this encounterLima [facility] Hospital05-12-2022 Miscellaneous Notes* Telephone Encounter - Yas Gamble Ma - 08/03/2021 1:07 PM EDT Patient was made aware of the results. Patient verbalizes understanding. Yas Gamble Ma * Telephone Encounter - Da Ocampo MD - 08/03/2021 11:20 AM EDT Labs stable. Slightly anemic, could still be recovering from surgery but recheck labs to be on safeside in one week documented in this encounterLima [facility] Hospital05-03-2022 Miscellaneous Notes* Telephone Encounter - Melvina [...] Antonio. Please advise pt. documented in this encounterLima [facility] Hospital04-26-2022 Miscellaneous Notes* Telephone Encounter - Lisbet [...] do. Althea Herrera LPN documented in this encounterLima [facility] Hospital04-18-2022 History of Present illness Narrative* Jessie [...] 10, 2021 4:24 PM documented in this encounterLima [facility] Hospital04-17-2022 Miscellaneous Notes* Telephone Encounter - Cadence Herrera LPN - 07/09/2021 12:06 PM EDT Phone call placed prior, MyChart active 07/08/21, message sent with updated results. Cadence Herrera LPN * Telephone Encounter - Cadence Herrera LPN - 07/07/2021 9:13 AM EDT Phone call placed brief message to contact a nurse. Cadence Herrera LPN * Telephone Encounter - Cadence Herrera LPN - 07/07/2021 9:11 AM EDT ----- Message from Rachna Garcia APRN.ELECTRICAL LABORATORY TECHNICIAN sent at 07/06/2021 8:19 PM EDT ----- Please advise patient the radiologist sees a possible old fracture at the base of the distal fibula. This is not likely causing her pain, however I would like her to follow up with podiatry so he canevaluate the xrays. Referral entered. Rachna Garcia APRN.CNP documented in this encounterLima [facility] Hospital04-14-2022 Miscellaneous Notes* Telephone Encounter - Tonya [...] notify patient. Ciera Reeves documented in this encounterLima [facility] Hospital04-13-2022 Miscellaneous Notes* Telephone Encounter - Zoila [...] you. Melvina Thomas RN documented in this encounterLima [facility] Hospital10-27-2008 History of Past illness Narrative* Problem Noted Date Resolved Date Sprain and strain of unspeci fied site of shoulder and upper arm 01/19/2008 02/11/2020 Hypothyroidism, acquired 09/11/2005 020 Abdominal pain, left lower quadrant 10/22/2017 documented as of this encounter (statuses as of 07/05/2021) [facility] Narrative* Problem Noted Date Resolved Date Sprain and strain of unspeci fied site of shoulder and upper arm 01/19/2008 02/11/2020 Hypothyroidism, acquired 09/11/2005 020 Abdominal pain, left lower quadrant 10/22/2017 documented as of this encounter (statuses as of 07/05/2021) [facility] Narrative* Problem Noted Date Resolved Date Sprain and strain of unspeci fied site of shoulder and upper arm 01/19/2008 02/11/2020 Hypothyroidism, acquired 09/11/2005 020 Abdominal pain, left lower quadrant 10/22/2017 documented as of this encounter (statuses as of 07/06/2021) [facility] Narrative* Problem Noted Date Resolved Date Sprain and strain of unspeci fied site of shoulder and upper arm 01/19/2008 02/11/2020 Hypothyroidism, acquired 09/11/2005 020 Abdominal pain, left lower quadrant 10/22/2017 documented as of this encounter (statuses as of 07/09/2021) [facility] Narrative* Problem Noted Date Resolved Date Sprain and strain of unspeci fied site of shoulder and upper arm 01/19/2008 02/11/2020 Hypothyroidism, acquired 09/11/2005 020 Abdominal pain, left lower quadrant 10/22/2017 documented as of this encounter (statuses as of 07/10/2021) [facility] Narrative* Problem Noted Date Resolved Date Sprain and strain of unspeci fied site of shoulder and upper arm 01/19/2008 02/11/2020 Hypothyroidism, acquired 09/11/2005 020 Abdominal pain, left lower quadrant 10/22/2017 documented as of this encounter (statuses as of 07/18/2021) [facility] Narrative* Problem Noted Date Resolved Date Sprain and strain of unspeci fied site of shoulder and upper arm 01/19/2008 02/11/2020 Hypothyroidism, acquired 09/11/2005 020 Abdominal pain, left lower quadrant 10/22/2017 documented as of this encounter (statuses as of 07/25/2021) [facility] Narrative* Problem Noted Date Resolved Date Sprain and strain of unspeci fied site of shoulder and upper arm 01/19/2008 02/11/2020 Hypothyroidism, acquired 09/11/2005 020 Abdominal pain, left lower quadrant 10/22/2017 documented as of this encounter (statuses as of 08/03/2021) [facility] Narrative* Problem Noted Date Resolved Date Sprain and strain of unspeci fied site of shoulder and upper arm 01/19/2008 02/11/2020 Hypothyroidism, acquired 09/11/2005 020 Abdominal pain, left lower quadrant 10/22/2017 documented as of this encounter (statuses as of 08/11/2021) [facility] Narrative* Problem Noted Date Resolved Date Sprain and strain of unspeci fied site of shoulder and upper arm 01/19/2008 02/11/2020 Hypothyroidism, acquired 09/11/2005 020 Abdominal pain, left lower quadrant 10/22/2017 documented as of this encounter (statuses as of 09/01/2021) [facility] Narrative* Problem Noted Date Resolved Date Sprain and strain of unspeci fied site of shoulder and upper arm 01/19/2008 02/11/2020 Hypothyroidism, acquired 09/11/2005 020 Abdominal pain, left lower quadrant 10/22/2017 documented as of this encounter (statuses as of 09/01/2021) [facility] Narrative* Problem Noted Date Resolved Date Sprain and strain of unspeci fied site of shoulder and upper arm 01/19/2008 02/11/2020 Hypothyroidism, acquired 09/11/2005 020 Abdominal pain, left lower quadrant 10/22/2017 documented as of this encounter (statuses as of 10/10/2021) [facility] Narrative* Problem Noted Date Resolved Date Sprain and strain of unspeci fied site of shoulder and upper arm 01/19/2008 02/11/2020 Hypothyroidism, acquired 09/11/2005 020 Abdominal pain, left lower quadrant 10/22/2017 documented as of this encounter (statuses as of 10/18/2021) [facility] Narrative* Problem Noted Date Resolved Date Sprain and strain of unspeci fied site of shoulder and upper arm 01/19/2008 02/11/2020 Hypothyroidism, acquired 09/11/2005 020 Abdominal pain, left lower quadrant 10/22/2017 documented as of this encounter (statuses as of 03/30/2022) [facility]arrative* Problem Noted Date Resolved Date Sprain and strain of unspeci fied site of shoulder and upper arm 01/19/2008 02/11/2020 Hypothyroidism, acquired 09/11/2005 020 Abdominal pain, left lower quadrant 10/22/2017 documented as of this encounter (statuses as of 03/30/2022) [facility] Narrative* Problem Noted Date Resolved Date Sprain and strain of unspeci fied site of shoulder and upper arm 01/19/2008 02/11/2020 Hypothyroidism, acquired 09/11/2005 020 Abdominal pain, left lower quadrant 10/22/2017 documented as of this encounter (statuses as of 03/31/2022) [facility] note* Diagnosis Hypothyroidism, acquired Unspecified hypothyroidism Edema, unspecified type [facility] Diagnosis Anemia, unspecified type- Primary [facility]* Diagnosis Aortic valve stenosis, etiology of cardiac valve disease unspecified- Primary documented in this encounter [facility]* Diagnosis Recurrent major depressive disorder, in remission (HCC) documented in this encounter [facility]* Diagnosis Hypothyroidism, acquired Unspecified hypothyroidism documented in this encounter [facility] note* Diagnosis Edema, unspecified type documented in this encounter [facility] note* Diagnosis SBO (small bowel obstruction) ([facility])- Primary Unspecified intestinal obstruction [facility]* Diagnosis Essential hypertension, benign- Primary Mixed [...] anxiety, unspecified dementia severity, unspecified dementia type ([facility]) Edema, unspecified type Localized swelling, mass and lump, left lower limb Cellulitis of skin Cellulitis and abscess of unspecified site Hypothyroidism, acquired Unspecified hypothyroidism [facility]* Diagnosis Recurrent major depressive disorder, in remission (HCC) documented in this encounter [facility] note* Diagnosis Edema, unspecified type documented in this encounter [facility] note* Diagnosis Recurrent UTI (urinary tract infection)- Primary Urinary tract infection, site not specified Nonrheumatic aortic valve stenosis Aortic valve disorders Essential hypertension, benign Mixed hyperlipidemia Controlled type 2 diabetes mellitus without complication, without long-term current use of insulin (HCC) Hypothyroidism, unspecified type documented in this encounter [facility] note* Diagnosis Decreased vision- Primary Unspecified [...] Band keratopathy, left documented in this encounter [facility] note* Diagnosis Band keratopathy, 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) documented in this encounter [facility] note* Diagnosis Nonrheumatic aortic valve stenosis- Primary Aortic valve disorders Aortic valve disorder Aortic valve disorders Essential hypertension, benign documented in this encounter [facility] note* Diagnosis Hypothyroidism, acquired Unspecified hypothyroidism documented in this encounter [facility] note* Diagnosis NO SHOW- Primary documented in this encounter [facility] note* Diagnosis Anxiety- Primary Anxiety state, unspecified documented in this encounter [facility] for referral (narrative)* Outpatient Procedure (Routine) - Authorized Specialty Diagnoses / Procedures Referred By Nell t Referred To [facility] Diagnoses Nonrheumatic aortic valve stenosis Procedures ECHO ECHO TTC R-T 2D W/WOM-MODE COMPL SPEC&COLR D Da Ocampo MD [address] [place] [address] [facility] [address] [place] [address] Referral ID Status Reason Start Date Expiration Date Visits Requested Visits Authorized [id number] Authorized Auto-Generat ed Referral 07/23/2022 07/23/2023 1 1 * Consult, Test, Treat (Routine) - Authorized Specialty Diagnoses / Procedures Referred By Contac t Referred To Contact Urology Diagnoses Recurrent UTI (urinary tract infection) Procedures CONSULT TO UROLOGY OFFICE/OUTPATIENT NEW HIGH MDM 60-74 MINUTES Da Ocampo MD [address] [place] [address] Referral ID Status Reason Start Date Expiration Date Visits Requested Visits Authorized [id number] Authorized PCP Requested Referral 07/23/2022 07/23/2023 1 1 [facility] for referral (narrative)* Outpatient Procedure (Routine) - Pending Review Specialty Diagnoses / Procedures Referred By Contac t Referred To Contact [facility] [place] Diagnoses Nonrheumatic aortic valve stenosis Procedures ECHO ECHO TTHRC R-T 2D W/WOM-MODE COMPL SPEC&COLR D Kevin Fox MD [address] [place] [address] [facility] [place] [address] [place] [address] Referral ID Status Reason Start Date Expiration Date Visits Requested Visits Authorized [id number] Pending Review Auto-Generat ed Referral 07/23/2023 01/21/2024 1 1 * Outpatient Procedure (Routine) - Pending Review Specialty Diagnoses / Procedures Referred By Contac t Referred To Contact [facility] [place] Diagnoses Screening for ischemic heart disease Procedures ECG COMPLETE ECG ROUTINE ECG W/LEAST 12 LDS W/I&R Kevin Fox MD [address] [place] [address] [facility] [place] [address] [place] [id number] Referral ID Status Reason Start Date Expiration Date Visits Requested Visits Authorized [id number] Pending Review Auto-Generat ed Referral 3 01/14/2024 1 1 [facility] Reason for Referral Specialty Diagnoses / Procedures Referred By Contac t Referred To Contact Cardiology Diagnoses Aortic valve stenosis, etiology of cardiac valve disease unspecified Procedures CONSULT TO CARDIOLOGY OFFICE/OUTPATIENT [facility] 60-74 MINUTES Da Ocampo MD [address] [place] [address] Referral ID Status Reason Start Date Expiration Date Visits Requested Visits Authorized [id number] Authorized PCP Requested Referral 08/08/2021 08/08/2022 1 1 Specialty Diagnoses / Procedures Referred By Contac t Referred To Contact [facility] Diagnoses SBO (small bowel obstruction) ([facility]) Procedures CONSULT TO PHYSICAL THERAPY PHYSICAL THERAPY EVALUATION HIGH COMPLEX 45 MINS Da Ocampo MD [address] [place] [address] [facility] [place] [address] [place] [address] Referral ID Status Reason Start Date Expiration Date Visits Requested Visits Authorized [id number] Authorized PCP Requested Referral Auto-Generate d Referral 03/28/2022 03/28/2023 99 99 Specialty Diagnoses / Procedures Referred By Contac t Referred To Contact Cardiology Diagnoses Nonrheumatic aortic valve stenosis Procedures CONSULT TO CARDIOLOGY OFFICE/OUTPATIENT [facility] 60-74 MINUTES Da Ocampo MD [address] [place] [address] Referral ID Status Reason Start Date Expiration Date Visits Requested Visits Authorized [id number] Authorized PCP Requested Referral 04/04/2022 04/04/2023 1 1 Specialty Diagnoses / Procedures Referred By Contac t Referred [facility] Diagnoses Edema, unspecified type Localized swelling, mass and lump, left lower limb Procedures US LEG VEIN DVT UNL VAS LAB DUP-SCAN XTR VEINS UNILATERAL/LIMITED STUDY Da Ocampo MD [address] [place] [address] [facility] [place] [address] [place] [address] Referral ID Status Reason Start Date Expiration Date Visits Requested Visits Authorized [id number] Authorized Auto-Generat ed Referral 04/04/2022 04/04/2023 1 [...] or prosecute any alcohol or drug abuse patient.[facility] HospitalIn the event this information is protected by the Federal Confidentiality of Alcohol and Drug Abuse Patient Records regulations: The Federal rules restrict any use of the information to criminally investigate or prosecute any alcohol or drug abuse patient.[facility] HospitalIn the event this information is protected by the Federal Confidentiality of Alcohol and Drug Abuse Patient Records regulations: The Federal rules restrict any use of the information to criminally investigate or prosecute any alcohol or drug abuse patient.[facility] HospitalIn the event this information is protected by the Federal Confidentiality of Alcohol and Drug Abuse Patient Records regulations: The Federal rules restrict any use of the information to criminally investigate or prosecute any alcohol or drug abuse patient.[facility] HospitalIn the event this information is protected by the Federal Confidentiality of Alcohol and Drug Abuse Patient Records regulations: The Federal rules restrict any use of the information to criminally investigate or prosecute any alcohol or drug abuse patient.[facility] HospitalIn the event this information is protected by the Federal Confidentiality of Alcohol and Drug Abuse Patient Records regulations: The Federal rules restrict any use of the information to criminally investigate or prosecute any alcohol or drug abuse patient.[facility] HospitalIn the event this information is protected by the Federal Confidentiality of Alcohol and Drug Abuse Patient Records regulations: The Federal rules restrict any use of the information to criminally investigate or prosecute any alcohol or drug abuse patient.[facility] HospitalIn the event this information is protected by the Federal Confidentiality of Alcohol and Drug Abuse Patient Records regulations: The Federal rules restrict any use of the information to criminally investigate or prosecute any alcohol or drug abuse patient.[facility] HospitalIn the event this information is protected by the Federal Confidentiality of Alcohol and Drug Abuse Patient Records regulations: The Federal rules restrict any use of the information to criminally investigate or prosecute any alcohol or drug abuse patient.[facility] HospitalIn the event this information is protected by the Federal Confidentiality of Alcohol and Drug Abuse Patient Records regulations: The Federal rules restrict any use of the information to criminally investigate or prosecute any alcohol or drug abuse patient.[facility] HospitalIn the event this information is protected by the Federal Confidentiality of Alcohol and Drug Abuse Patient Records regulations: The Federal rules restrict any use of the information to criminally investigate or prosecute any alcohol or drug abuse patient.[facility] HospitalIn the event this information is protected by the Federal Confidentiality of Alcohol and Drug Abuse Patient Records regulations: The Federal rules restrict any use of the information to criminally investigate or prosecute any alcohol or drug abuse patient.[facility] HospitalIn the event this information is protected by the Federal Confidentiality of Alcohol and Drug Abuse Patient Records regulations: The Federal rules restrict any use of the information to criminally investigate or prosecute any alcohol or drug abuse patient.[facility] HospitalIn the event this information is protected by the Federal Confidentiality of Alcohol and Drug Abuse Patient Records regulations: The Federal rules restrict any use of the information to criminally investigate or prosecute any alcohol or drug abuse patient.[facility] HospitalIn the event this information is protected by the Federal Confidentiality of Alcohol and Drug Abuse Patient Records regulations: The Federal rules restrict any use of the information to criminally investigate or prosecute any alcohol or drug abuse patient.[facility] HospitalIn the event this information is protected by the Federal Confidentiality of Alcohol and Drug Abuse Patient Records regulations: The Federal rules restrict any use of the information to criminally investigate or prosecute any alcohol or drug abuse patient.[facility] HospitalIn the event this information is protected by the Federal Confidentiality of Alcohol and Drug Abuse Patient Records regulations: The Federal rules restrict any use of the information to criminally investigate or prosecute any alcohol or drug abuse patient.[facility] HospitalIn the event this information is protected by the Federal Confidentiality of Alcohol and Drug Abuse Patient Records regulations: The Federal rules restrict any use of the information to criminally investigate or prosecute any alcohol or drug abuse patient.[facility] HospitalIn the event this information is protected by the Federal Confidentiality of Alcohol and Drug Abuse Patient Records regulations: The Federal rules restrict any use of the information to criminally investigate or prosecute any alcohol or drug abuse patient.[facility] HospitalIn the event this information is protected by the Federal Confidentiality of Alcohol and Drug Abuse Patient Records regulations: The Federal rules restrict any use of the information to criminally investigate or prosecute any alcohol or drug abuse patient.[facility] HospitalIn the event this information is protected by the Federal Confidentiality of Alcohol and Drug Abuse Patient Records regulations: The Federal rules restrict any use of the information to criminally investigate or prosecute any alcohol or drug abuse patient.[facility] HospitalIn the event this information is protected by the Federal Confidentiality of Alcohol and Drug Abuse Patient Records regulations: The Federal rules restrict any use of the information to criminally investigate or prosecute any alcohol or drug abuse patient.[facility] HospitalIn the event this information is protected by the Federal Confidentiality of Alcohol and Drug Abuse Patient Records regulations: The Federal rules restrict any use of the information to criminally investigate or prosecute any alcohol or drug abuse patient.[facility] HospitalIn the event this information is protected by the Federal Confidentiality of Alcohol and Drug Abuse Patient Records regulations: The Federal rules restrict any use of the information to criminally investigate or prosecute any alcohol or drug abuse patient.[facility] HospitalIn the event this information is protected by the Federal Confidentiality of Alcohol and Drug Abuse Patient Records regulations: The Federal rules restrict any use of the information to criminally investigate or prosecute any alcohol or drug abuse patient.[facility] HospitalIn the event this information is protected by the Federal Confidentiality of Alcohol and Drug Abuse Patient Records regulations: The Federal rules restrict any use of the information to criminally investigate or prosecute any alcohol or drug abuse patient.[facility] HospitalIn the event this information is protected by the Federal Confidentiality of Alcohol and Drug Abuse Patient Records regulations: The Federal rules restrict any use of the information to criminally investigate or prosecute any alcohol or drug abuse patient.[facility] HospitalIn the event this information is protected by the Federal Confidentiality of Alcohol and Drug Abuse Patient Records regulations: The Federal rules restrict any use of the information to criminally investigate or prosecute any alcohol or drug abuse patient.[facility] HospitalIn the event this information is protected by the Federal Confidentiality of Alcohol and Drug Abuse Patient Records regulations: The Federal rules restrict any use of the information to criminally investigate or prosecute any alcohol or drug abuse patient.[facility] HospitalIn the event this information is protected by the Federal Confidentiality of Alcohol and Drug Abuse Patient Records regulations: The Federal rules restrict any use of the information to criminally investigate or prosecute any alcohol or drug abuse patient.[facility]In the event this information is protected by the Federal Confidentiality of Alcohol and Drug Abuse Patient Records regulations: The Federal rules restrict any use of the information to criminally investigate or prosecute any alcohol or drug abuse patient.[facility] HospitalIn the event this information is protected by the Federal Confidentiality of Alcohol and Drug Abuse Patient Records regulations: The Federal rules restrict any use of the information to criminally investigate or prosecute any alcohol or drug abuse patient.[facility] HospitalIn the event this information is protected by the Federal Confidentiality of Alcohol and Drug Abuse Patient Records regulations: The Federal rules restrict any use of the information to criminally investigate or prosecute any alcohol or drug abuse patient.[facility] HospitalIn the event this information is protected by the Federal Confidentiality of Alcohol and Drug Abuse Patient Records regulations: The Federal rules restrict any use of the information to criminally investigate or prosecute any alcohol or drug abuse patient.[facility] HospitalIn the event this information is protected by the Federal Confidentiality of Alcohol and Drug Abuse Patient Records regulations: The Federal rules restrict any use of the information to criminally investigate or prosecute any alcohol or drug abuse patient.[facility] HospitalIn the event this information is protected by the Federal Confidentiality of Alcohol and Drug Abuse Patient Records regulations: The Federal rules restrict any use of the information to criminally investigate or prosecute any alcohol or drug abuse patient.[facility] HospitalIn the event this information is protected by the Federal Confidentiality of Alcohol and Drug Abuse Patient Records regulations: The Federal rules restrict any use of the information to criminally investigate or prosecute any alcohol or drug abuse patient.[facility] Reason for Visit (unrecogniz ed section and content) Reason Onset Date Comments Refill Request 07/06/2021 Reason Comments Results Reason Comments Patient Update Reason Comments Patient Update Questions Returning Patient's Call Reason Comments Results Reason Comments Prescription Refills Reason Onset Date Comments Refill Request 10/10/2021 Reason Onset Date Comments Refill Request 10/18/2021 Reason Comments Orders Reason Comments [facility], PT plan of care Reason Comments [facility] nursing clarification Reason Comments 6 Month Exam [...] valve stenosis Procedures CONSULT TO CARDIOLOGY OFFICE/OUTPATIENT NEW HIGH MDM 60-74 MINUTES Da Ocampo MD [address] [place] [address] Referral ID Status Reason Start Date Expiration Date V isits Requested Visits Authorized [id number] Closed PCP Requested Referral 04/04/2022 04/04/2023 1 1 Reason Onset Date Comments Refill Request 02/06/2023 Reason Comments Patient Question Patient Update Reason Comments Acute Visit Care Teams (unrecognized sec tion and content) Abattoir Supervisor Relationship Specialty Start Date End Date Da Ocampo MD [address] [place], [place] [address] PCP - General Family Practice 07/17/17 Nahed Batista [address] [facility] [address] [place] [address] Consulting Urology 03/17/19 [facility] 10/09/18 Abattoir Supervisor Relationship Specialty Start Date End Date Da Ocampo MD [address] [place], [place] [address] PCP - General Family Practice 07/17/17 Nahde Batista [address] [facility] [address] [place] [address] Consulting Urology 03/17/19 [facility] 10/09/18 Abattoir Supervisor Relationship Specialty Start Date End Date Da Ocampo MD [address] [facility], [place] [id number] PCP - General Family Practice 07/17/17 Nahed Batista [address] [facility] [address] [place] [address] Consulting Urology 03/17/19 [facility] 10/09/18 Abattoir Supervisor Relationship Specialty Start Date End Date Da Ocampo MD [address] [facility], [place] [address] PCP - General Family Practice 07/17/17 Nahed Batista [address] [facility] [address] [place] [address] Consulting Urology 03/17/19 [facility] 10/09/18 Abattoir Supervisor Relationship Specialty Start Date End Date Da Ocampo MD [address] [place] [address] PCP - General Family Practice 07/17/17 Nahed Batista [address] [facility] [address] [place] [address] Consulting Urology 03/17/19 [facility] 10/09/18 Abattoir Supervisor Relationship Specialty Start Date End Date Da Ocampo MD [address] [facility], [place] [address] PCP - General Family Practice 07/17/17 Nahed Batista [address] [facility] [address] [place] [address] Consulting Urology 03/17/19 [facility] 10/09/18 Abattoir Supervisor Relationship Specialty Start Date End Date Da Ocampo MD [address] [place], [place] [address] PCP - General Family Practice 07/17/17 Nahed Batista [address] [facility] [address] [place] [address] Consulting Urology 03/17/19 [facility] 10/09/18 Abattoir Supervisor Relationship Specialty Start Date End Date Da Ocampo MD [address] [place], [place] [id number] PCP - General Family Practice 07/17/17 Nahed Batista [address] [facility] [address] [place] [address] Consulting Urology 03/17/19 [facility] 10/09/18 Abattoir Supervisor Relationship Specialty Start Date End Date Da Ocampo MD [address] [place], [place] [address] PCP - General Family Medicine 07/17/17 Nahed Batista [address] [facility] [address] [place] [address] Consulting Urology 03/17/19 [facility] 10/09/18 Abattoir Supervisor Relationship Specialty Start Date End Date Da Ocampo MD [address] [facility], [place] [address] PCP - General Family Medicine 07/17/17 Nahed Batista [address] [place] [address] Consulting Urology 03/17/19 [facility] 10/09/18 Abattoir Supervisor Relationship Specialty Start Date End Date Da Ocampo MD [address] [place], [place] [address]661 PCP - General Family Medicine 07/17/17 Nahed Batista [address] [facility] [address] [place], [place] [address] Consulting Urology 03/17/19 [facility] 10/09/18 Abattoir Supervisor Relationship Specialty Start Date End Date Da Ocampo MD [address] [place], [place] [address] PCP - General Family Medicine 07/17/17 Nahed Batista [address] [address] Consulting Urology 03/17/19 [facility] 10/09/18 Abattoir Supervisor Relationship Specialty Start Date End Date Da Ocampo MD [address] [place], [place] [id number] PCP - General Family Medicine 07/17/17 Nahed Batista [address] [address] Consulting Urology 03/17/19 [facility] 10/09/18 Abattoir Supervisor Relationship Specialty Start Date End Date Da Ocampo MD [address] [place], [place] [address] PCP - General Family Medicine 07/17/17 Nahed Batista [address] [address] Consulting Urology 03/17/19 [facility] 10/09/18 Abattoir Supervisor Relationship Specialty Start Date End Date Da Ocampo MD [address] [facility], [place] [address] PCP - General Family Medicine 07/17/17 Nahed Batista [address] [place] [address] Consulting Urology 03/17/19 [facility] 10/09/18 Abattoir Supervisor Relationship Specialty Start Date End Date Da Ocampo MD [address] [place], [place] [id number] PCP - General Family Medicine 07/17/17 Nahed Batista [address] [address] Consulting Urology 03/17/19 [facility] 10/09/18 Abattoir Supervisor Relationship Specialty Start Date End Date Da Ocampo MD [address] [place], [place] [id number] PCP - General Family Medicine 07/17/17 Nahed Batista [address] [place] [address] Consulting Urology 03/17/19 [facility] 10/09/18 Abattoir Supervisor Relationship Specialty Start Date End Date Da Ocampo MD [address] [place], [place] [id number] PCP - General Family Medicine 07/17/17 Nahed Batista [address] [facility] [address] [place] [address] Consulting Urology 03/17/19 [facility] 10/09/18 Abattoir Supervisor Relationship Specialty Start Date End Date Da Ocampo MD [address] [facility], [place] [address] PCP - General Family Medicine 07/17/17 Nahed Batista [address] [facility] [address] [place] [address] Consulting Urology 03/17/19 [facility] 10/09/18 Abattoir Supervisor Relationship Specialty Start Date End Date Da Ocampo MD [address] [place] [address] PCP - General Family Medicine 07/17/17 Nahed Batista [address] [facility] [address] [place] [address] Consulting Urology 03/17/19 [facility] 10/09/18 Abattoir Supervisor Relationship Specialty Start Date End Date Da Ocampo MD [address] [place] [address] PCP - General Family Medicine 07/17/17 Nahed Batista [address] [facility] [address] [place] [address] Consulting Urology 03/17/19 [facility] 10/09/18 Abattoir Supervisor Relationship Specialty Start Date End Date Da Ocampo MD [address] [facility], [place] [address] PCP - General Family Medicine 07/17/17 Nahed Batista [address] [facility] [address] [place] [address] Consulting Urology 03/17/19 [facility] 10/09/18 Abattoir Supervisor Relationship Specialty Start Date End Date Da Ocampo MD [address] [facility], [place] [address] PCP - General Family Medicine 07/17/17 Nahed Batista [address] [place] [address] Consulting Urology 03/17/19 [facility] 10/09/18 Abattoir Supervisor Relationship Specialty Start Date End Date Da Ocampo MD [address] [place] [address] PCP - General Family Medicine 07/17/17 Nahed Batista [address] [place] [address] Consulting Urology 03/17/19 [facility] 10/09/18 INFORMATION SOURCE (unrecogn ized section and content) DATE CREATED AUTHOR AUTHOR'S TOMMY ATION 04/28/2023 [facility] FOR RECORDS PERTAINING TO PATIENTS WHO ARE [...] BE BASED ON THE PRIMARY CLINICAL RECORDS. [facility]. provides no warranty or guarantee of the accuracy or completeness of information in this document.
[2023-05-02 08:50] LABS: Potassium 3.4 mmol/L (3.5-5.1)
== END ==
LOC: OLS.WHLTCC 05:00
PROVIDERS: PCP Family Medicine; Visit Provider Internal Medicine
DX: E87.6 Hypokalemia (principal); E03.9 Hypothyroidism, unspecified
CPT/HCPCS: 36415; 84132

== ENCOUNTER → 2023-05-07 | Outpatient (REF) | payer MEDICARE, OTHER, SELFPAY ==
[2023-05-07 09:17] LABS: Absolute Neutrophil Count 3.6 X10^3/uL (2.0-7.7); Basophil# 0.04 X10^3/uL; Basophil% 0.6 % (0-1); Eosinophil# 0.12 X10^3/uL; Eosinophils% 1.9 % (0-5); Hematocrit 43.1 % (37-47); Hemoglobin 13.8 g/dL (12.0-15.0); Mean Corpuscular Hgb 28.3 pg (27.0-32.0); Mean Corpuscular Volume 88.3 fL (81-99); Mean Platelet Vol. 10.4 fl (6.2-12.0); Monocyte# 0.49 X10^3/uL; Monocyte% 7.6 % (0-10); NRBC Flagged by Analyzer 0 % (0-5); Neutrophil % 55.4 % (47-70); Platelet Count 284 K/mm3 (150-450); RBC Distribution Width CV 12.7 % (11.6-14.6); RBC Distribution Width SD 41.2 fl (35.1-43.9); Red Blood Count 4.88 M/mm3 (4.2-5.4); White Blood Count 6.5 K/mm3 (4.4-11.0)
[2023-05-07 10:11] LABS: Anion Gap 9 (5-15); BUN 28 mg/dL (7-18); BUN/Creat Ratio 39.9 RATIO (10-20); Calcium,Total 10.4 mg/dL (8.5-10.1); Chloride 104 mmol/L (98-107); EST Glomerular Filtration Rate 84 mL/min (>60); Est Glom Filt Rate - Afr Amer 101 mL/min (>60); Glucose 126 mg/dL (74-106); Potassium 3.5 mmol/L (3.5-5.1); Sodium Level 138 mmol/L (136-145)
== END ==
LOC: OLS.WHLTCC 06:50
PROVIDERS: PCP Family Medicine; Visit Provider Internal Medicine
DX: R62.7 Adult failure to thrive (principal); E03.9 Hypothyroidism, unspecified
CPT/HCPCS: 36415; 80048; 85025

== ENCOUNTER → 2023-05-14 | Outpatient (REF) | payer MEDICARE, OTHER, SELFPAY ==
--- OUTSIDE RECORDS SUMMARY | 2023-05-14 04:44 | XMS RPT_ITS | CCD ---
Author Name Unknown Address [address] [place] [address] Organization [facility] Care Team Providers Care Airfreight Loading Supervisor Name Role Phone Ge Ocampo MD Primary Care Provider Nahed Batista Unavailable JERRY NUGENT Attending Unavailable JERRY NUGENT Admitting Unavailable GE OCAMPO Primary Care Unavailable Ge Ocampo MD Primary Care Provider Nahed Batista Unavailable GE OCAMPO Primary Care Unavailable GE OCAMPO Attending Unavailable GE OCAMPO Primary Care Unavailable GE OCAMPO Attending Unavailable EDA FOX Attending Unavailable GE OCAMPO Primary Care Unavailable GE OCAMPO Referring Unavailable JERRY NUGENT Attending Unavailable GE OCAMPO Primary Care Unavailable ALVA ABREU Attending Unavailable GE OCAMPO Primary Care Unavailable GE OCAMPO Primary Care Unavailable GE OCAMPO Referring Unavailable GE OCAMPO Primary Care Unavailable GE OCAMPO Attending Unavailable JERRY NUGENT Attending Unavailable GE OCAMPO Primary Care Unavailable GE OCAMPO Primary Care Unavailable GE OCAMPO Referring Unavailable GE OCAMPO Primary Care Unavailable GE OCAMPO Attending Unavailable GE OCAMPO Primary Care Unavailable PHONG TREJO Attending Unavailable Allergies Allergy Classification Reported Allergen(s) Allergy Type Date of Onset Reaction(s) Facility (20 sources) Amoxicillin / Clavulanate; Translations: [AMOXICILLIN-POT CLAVULANATE] Drug Allergy 07-18-19 18 Itching [facility] (13 sources) Angiotensin II receptor antagonist; Translations: [ARB-ANGIOTENSIN RECEPTOR ANTAGONIST] Drug Allergy 11-12-19 19 Angioedema [facility] Work Phone: [phone] (20 sources) Atenolol; Translations: [ATENOLOL] Drug Allergy 08-08-19 09 Itching [facility] Work Phone: [phone] (20 sources) cefdinir; Translations: [CEFDINIR] Drug Allergy 07-18-19 18 Rash [facility] (20 sources) Cephalexin; Translations: [CEPHALEXIN] Drug Allergy 10-12-19 19 Rash [facility] Work Phone: [phone] (20 sources) Ciprofloxacin; Translations: [CIPROFLOXACIN] Drug Allergy 11-13-19 19 Other: See Comments [facility] Work Phone: [phone] (20 sources) Doxycycline; Translations: [DOXYCYCLINE CALCIUM] Drug Allergy 01-10-20 05 [facility] Work Phone: [phone] (20 sources) meloxicam; Translations: [MELOXICAM] Drug Allergy 07-18-19 18 [facility] (20 sources) metroNIDAZOLE; Translations: [METRONIDAZOLE HCL] Drug Allergy 01-10-20 05 [facility] Work Phone: [phone] (20 sources) Promethazine; Translations: [PROMETHAZINE HCL] Drug Allergy 01-10-20 05 [facility] Work Phone: [phone] (20 sources) Sulfamethoxazole / Trimethoprim; Translations: [SULFAMETHOXAZOLE-TR IMETHOPRIM] Drug Allergy 07-18-19 18 [facility] (13 sources) Tetracycline (class of antibiotic); Translations: [TETRACYCLINES] Propensity to adverse reactions 01-10-20 05 [facility] Work Phone: [phone] (13 sources) Influenza Virus Vaccines; Translations: [INFLUENZA VIRUS VACCINES] Propensity to adverse reactions 02-26-20 06 Rash, Swelling, Itching [facility] Work Phone: [phone] (20 sources) Angiotensin II receptor antagonist Drug Allergy 11-12-19 19 Angioedema [facility] Work Phone: [phone] (20 sources) Tetracycline (class of antibiotic) Propensity to adverse reactions 01-10-20 05 [facility] Work Phone: [phone] (20 sources) Influenza Virus Vaccines Propensity to adverse reactions 02-26-20 06 Rash, Swelling, Itching [facility] Work Phone: (16 sources) Clavulanate; Translations: [CLAVULANIC ACID] Drug Allergy 10-12-19 Unknown [facility] (16 sources) fluticasone; Translations: [FLUTICASONE] Drug Allergy 10-12-19 Unknown [facility] (16 sources) Pneumococcal vaccine; Translations: [PNEUMOCOCCAL VACCINE] Drug Allergy 10-12-19 Unknown [facility] (16 sources) Sulfamethoxazole; Translations: [SULFAMETHOXAZOLE] Drug Allergy 10-12-19 Unknown [facility] (16 sources) Trimethoprim; Translations: [TRIMETHOPRIM] Drug Allergy 10-12-19 Unknown [facility] Medications Current Medications Medication Drug Class(es) [...] by mouth once daily. 0 03/14/2021 Active documented in this encounter [facility] 02-12-2023 History of Present illness Narrative Attempted to call multiple times over 10 minute period. Was busy. Unable to connect via virtual. documented in this encounter [facility] 02-11-2023 Miscellaneous Notes Called patient but [...] thought in December. documented in this encounter [facility] 02-11-2023 Miscellaneous Notes Called patient but [...] advise RADHA Espinoza documented in this encounter [facility] 02-08-2023 Miscellaneous Notes Spoke with patient [...] reply. Thank you. documented in this encounter [facility] 02-06-2023 Miscellaneous Notes [facility]-11/16/22 Labs-11/16/22 NOV-02/12/23 Pharm. stated Pt has no refills and needs new Rx Bette Small LPN documented in this encounter [facility] 01-21-2023 Note HNO ID: [id number] Author: Eda Fox MD Service: ? Author Type: Physician Type: Progress Notes Filed: 01/21/2023 5:17 PM Note Text: Eda Fox MD Interventional Cardiology [address] [place], [place] [id number] Chief Complaint Patient presents with: New Patient [...] Take 1 tablet by mouth twice daily. YWAIMUCN-JUXPIYBYM-RUNIDYFT 3.5 MG/ML-10,000 UNIT/ML-0.1% EYE DROPS Use 1 Drop in both eyes twice daily. vit C,E-Xq-ccvba-lutein-zeaxan (PRESERVISION AREDS-2) 250-90-40-1 m (more content not included)... [facility] History of Present illness Narrative Images from the original note were not included. Eda Fox MD Interventional Cardiology [address] [place] [address] Chief Complaint Patient presents with: New Patient [...] Take 1 tablet by mouth twice daily. TXWKOGPK-EUQHBSJJX-FWHDYJSJ 3.5 MG/ML-10,000 UNIT/ML-0.1% EYE DROPS Use 1 Drop in both eyes twice daily. vit C,J-Ul-zxwqk-lutein-zeaxan (PRESERVISION AREDS-2) 250-90-40-1 mg Take 1 capsule [...] 10 mL injection (DEFINITY) INTRAVENOUS DIRECTED PRN Eda Fox MD sodium chloride 0.9 % (flush) 10 mL (BD POSIFLUSH) 10 mL INTRAVENOUS DIRECTED PRN Eda Fox MD perflutren lipid microspheres 1.3 mL in NaCl (PF) 0.9% 10 mL injection (DEFINITY) INTRAVENOUS DIRECTED PRGe Ambrose MD sodium chloride 0.9 % (flush) 10 mL (BD POSIFLUSH) 10 mL INTRAVENOUS DIRECTED PRN Ge Ocampo MD Review of Systems Constitutional: Negative for [...] Mediterranean diet - Recommend regular aerobic exercise Eda Fox MD Follow up plannin MONTHS Electronically signed by Eda Fox MD on January 21, 2023, 5:13 PM The above note was partially created using a dictation recognition software. A reasonable attempt has been made to correct any errors. documented in this encounter [facility] 12-12-2022 Note HNO ID: [id number] Author: Jerry Nugent MD Service: ? Author [...] [facility] Note HNO ID: [id number] Author: Alva Abreu, EVER Service: ? Author Type: SENIOR SOFTWARE SYSTEMS ENGINEER Type: Progress Notes Filed: 12/07/2022 4:21 PM Note Text: 1. 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 Nugetn next week 3. 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 Giuliana Abreu, OD December 07, 2022 4:20 PM [facility] [...] 2022 4:20 PM documented in this encounter [facility] 12-07-2022 Miscellaneous Notes Patient scheduled with [...] This patient just underwent corneal surgery at [place] on 12/04/2022. I pasted below the PSR's [...] week as well. documented in this encounter [facility] documented as of this encounter (statuses as of 12/07/2022) [facility] History of Past illness Narrative* Problem [...] of this encounter (statuses as of 12/08/2022) [facility] History of Past illness Narrative* Problem [...] of this encounter (statuses as of 01/22/2023) [facility] History of Past illness Narrative* Problem [...] of this encounter (statuses as of 02/06/2023) [facility] History of Past illness Narrative* Problem [...] of this encounter (statuses as of 02/08/2023) [facility] History of Past illness Narrative* Problem [...] of this encounter (statuses as of 02/11/2023) [facility] History of Past illness Narrative* Problem [...] of this encounter (statuses as of 02/13/2023) [facility] History of Past illness Narrative* Problem Noted Date Diagnosed Date Resolved Date Band keratopathy, left 12/04/202212/04 Accidental fall 04/04/2022 04/04/2022 Acute low back pain 04/04/2022 04/04/19 23 Adverse effect of drug 04/04/202204/043 Closed fracture of rib 04/04/202204/04 Diverticular disease [...] of this encounter (statuses as of 02/13/2023) [facility] History of Past illness Narrative* Problem [...] of this encounter (statuses as of 02/18/2023) [facility]08-25[facility]23 NoteHNO ID: [id number] Author: Ge Ocampo MD Service: ? Author Type: Physician [...] medication. Looks like from scanned document to [employer]. Is for OAB Sore on bottom is [...] Take 1 tablet by mouth twice daily. MPWUKUXY-ELIKXKWLP-PEPDIWZJ 3.5 MG/ML-10,000 UNIT/ML-0.1% EYE DROPS Use 1 Drop in both eyes twice daily. vit C,R-Jg-fuice-lutein-zeaxan (PRESERVISION AREDS-2) 250-90-40-1 mg Take 1 capsule [...] [facility] History of Present illness Narrative* Ge Ocampo MD - 11/16/2022 1:13 PM EDT Patient presents with: Pre-Op Exam HPI: Patient presents today for office visit for preop. Scheduled for eye surgery on 12/04. Having:REMOVE CORNEAL EPITHELIUM W/ APPLICATION OF CHELATION by Dr. Nugent. Is on a new medication from urology and not sure of name of medication. Looks like from scanned document to [employer]. Is for OAB Sore on bottom is [...] Take 1 tablet by mouth twice daily. IGYYOFXP-YKULCBOTE-AZCKYUAV 3.5 MG/ML-10,000 UNIT/ML-0.1% EYE DROPS Use 1 Drop in both eyes twice daily. vit C,C-Mp-djhvy-lutein-zeaxan (PRESERVISION AREDS-2) 250-90-40-1 mg Take 1 capsule [...] not better in one to two weeks Ge Ocampo MD [facility] Miscellaneous Notes* Telephone Encounter - Ne Kelsey - 10/30/2022 1:08 PM EDT Patient has been scheduled for 12/04/[address] Nugent in [place] * Telephone Encounter - Aleja Castanon RN - 10/19/2022 2:25 PM EDT Patient is inquiring about setting up surgery in [place]. Aleja Castanon RN October 19, 2022 2:26 PM [facility] Miscellaneous Notes* Telephone Encounter - Ne Kelsey - 10/24/2022 1:47 PM EDT Called patient to schedule chelation left eye with Dr. Jerry Nugent at the [place] location. Patient states she needs to have it done, but she's not able to see to write anything down, and asked me to call her daughter, Josey to schedule it. I did offer her 11/21/22 or 12/04 22. Patient states she prefers 12/04/22, but to check with her daughter about the dates. Per Epic notes, the cell phone number of [phone] is for Josey, so I called this number but got a voicemail for Zo. I left a message for Josey to call me back and schedule the surgery on behalf of the patient. (Per Patient contact numbers, Josey's phone number is actually [phone]. I called it and left a voicemail explaining that the patient asked me to contact her to schedule hersurgery and that I also left a voicemail for Zo. Requested a call back from either one to assist with patient scheduling. [facility] Miscellaneous Notes* Telephone Encounter - Luisito Cuevas Ma - 10/23/2022 2:21 PM EDT Patient notified, verbalized understanding. Patient states that she is following up with Eye doc. * Telephone Encounter - Ge Ocampo MD - 10/23/2022 2:09 PM EDT [...] know the name of the medication. [facility]. 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 Also wants to know if she has to taking her levothyroxine alone or can she take other meds with it at the same time? Please advise at [phone] [facility]23 NoteHNO ID: [id number] Author: Jerry Nugent MD Service: ? Author [...] Jerry Nugent MD October 17, 2022 10:56 [facility]07-19-2023 Miscellaneous Notes* Telephone Encounter - [...] the pharmacy. Katharine Weathers [facility]23 NoteHNO ID: [id number] Author: Ge Ocampo MD Service: ? Author Type: Physician Type: Progress Notes Filed: 07/23/2022 2:52 PM Note Text: Patient presents with: ER F/U HPI: Patient presents today for office visit for ER F/U. Went to [facility] ER on 07/18/22 due to generalized weakness. Dx with UTI and given Macrobid. Abx completed. Her work up was otherwise ok. Went back to [facility] on 07/22/22 due to not [...] Take 1 tablet by mouth twice daily. QNBDVQIE-FAKGLFIWQ-RHENUWHC 3.5 MG/ML-10,000 UNIT/ML-0.1% EYE DROPS Use 1 Drop in both eyes twice daily. vit C,K-Xe-lupwi-lutein-zeaxan (PRESERVISION AREDS-2) 250-90-40-1 mg Take 1 capsule [...] due on 01/18/2022- has seen her eye VITALRoberth: BP 144/66 Pulse 62 Temp 36.4 ?C (97.6 ?F) SpO2 96% Last 4 Encounter Wt Readings: Date: Wt: 04/04/2022 76.2 kg (168 (more content not included)...[facility] 07-[facility] History of Present illness Narrative* Ge Ocampo MD - 07/23/2022 2:20 PM EDT Patient presents with: ER F/U HPI: Patient presents today for office visit for ER F/U. Went to [facility] ER on 07/18/22 due to generalized weakness. Dx with UTI and given Macrobid. Abx completed. Her work up was otherwise ok. Went back to [facility] on 07/22/22 due to not [...] Take 1 tablet by mouth twice daily. HKZVDQCD-UWXDLNGOV-OVUXTDDK 3.5 MG/ML-10,000 UNIT/ML-0.1% EYE DROPS Use 1 Drop in both eyes twice daily. vit C,C-Ok-mifxq-lutein-zeaxan (PRESERVISION AREDS-2) 250-90-40-1 mg Take 1 capsule [...] ICD9: 244.9, ICD10: E03.9 - TSH BLD Ge Ocampo MD [facility] Miscellaneous Notes* Telephone Encounter - Mary [...] you. Mary Jordan RN [facility] Miscellaneous Notes* Telephone Encounter - Macarena [...] notify patient. Macarena Reyes documented in [facility]01-16-[facility]23 Miscellaneous Notes* Telephone Encounter - Charlotte Shetty Ma - 04/09/2022 9:17 AM EST Pt notified. Charlotte Shetty Ma * Telephone Encounter - Ge Ocampo MD - 04/09/2022 8:34 AM EST [...] advise, Shawna Looney RN documented in [facility] encounter[facility]01-[facility]23 Miscellaneous Notes* Telephone Encounter - Tonya [...] patient. Tonya Alarcon Pss documented in [facility] History of Present illness Narrative* Ge Ocampo MD - 04/04/2022 3:26 PM EST [...] Take 1 tablet by mouth twice daily. ZBEITFUG-ESHXYAAVR-HCWQMTSA 3.5 MG/ML-10,000 UNIT/ML-0.1% EYE DROPS Use 1 Drop in both eyes twice daily. vit C,Q-Zm-ehunn-lutein-zeaxan (PRESERVISION AREDS-2) 250-90-40-1 mg Take 1 capsule [...] ICD10: E03.9 - LEVOTHYROXINE 88 MCG TABLET Ge Ocampo MD documented in [facility] encounter[facility]01-[facility] History of Past illness Narrative* Problem Noted Date Resolved Date Accidental fall 04/04/2022 04/04/2022 Acute low back pain 04/04/2022 04/04/2022 Adverse effect of drug 04/04/2022 3 Closed fracture of rib 04/04/2022 3 Diverticular disease 04/04/2022 04/04/2022 Elevated liver enzymes 04/04/2022 Fecal impaction of colon 04/04/2022 023 Hypokalemia [...] of this encounter (statuses as of 04/05/2022) [facility] illness Narrative* Problem [...] of this encounter (statuses as of 04/09/2022) [facility] of Past illness Narrative* Problem [...] of this encounter (statuses as of 04/09/2022) [facility] of Past illness Narrative* Problem [...] of this encounter (statuses as of 04/19/2022) [facility] of Past illness Narrative* Problem [...] of this encounter (statuses as of 05/31/2022) [facility] of Past illness Narrative* Problem [...] of this encounter (statuses as of 07/24/2022) [facility] of Past illness Narrative* Problem [...] of this encounter (statuses as of 10/11/2022) [facility] of Past illness Narrative* Problem [...] of this encounter (statuses as of 10/24/2022) [facility] of Past illness Narrative* Problem [...] of this encounter (statuses as of 10/30/2022) [facility] of Past illness Narrative* Problem [...] of this encounter (statuses as of 11/16/2022) [facility] Miscellaneous Notes* Telephone Encounter - Robson Alas LPN - 03/30/2022 11:52 AM EST Cecy notified. She states pt will not continue the potassium so if provider could discuss/ write to discontinue the potassium at appt with PCP on 04/04/22. Robson Alas LPN * Telephone Encounter - Ge Ocampo MD - 03/30/2022 11:39 AM EST I have not seen her in some time and she has been in hospital. I would go with what is the discharge list. * Telephone Encounter - Althea Herrera LPN - 03/30/2022 11:18 AM EST Cecy with [facility] nursing calling for clarification on Potassium and Preservation. Pt has instructed her she is not taking these. Please advise Cecy. Althea Herrera LPN documented in this encounterThe [facility]01-[facility]-2023 Miscellaneous Notes* Telephone Encounter - Ge Ocampo MD - 03/29/2022 4:55 PM EST noted * Telephone Encounter - Althea Herrera LPN - 03/29/2022 4:09 PM EST Joaquina with [facility], PT calling with plan of care. They will see pt 1 time a week for 1 week, then2 times a week for 4 weeks for strengthening, gait, transfers and fall prevention. No call back needed Althea Herrera LPN documented in this encounterThe [facility]01-04-2023 Miscellaneous Notes* Telephone Encounter - Yas Gamble Ma - 03/28/2022 11:49 AM EST Order faxed to [facility], verbal order given to Sandy * Telephone Encounter - Melvina Thomas RN - 03/28/2022 11:15 AM EST Sandy from [facility] called in and reports Pt was admitted to [facility] on 03/23/22 for a small [...] is a confidential line. documented in this encounterThe [facility]07-27-2022 Miscellaneous Notes* Telephone Encounter - Tricia [...] you. Tricia Posada RN documented in this encounterThe [facility]07-19-2022 Miscellaneous Notes* Telephone Encounter - Joaquina Woo Pss - 10/10/2021 4:39 PM EDT Patient needs her levothyroxine sent to the [facility] in [place]. no longer covers through [facility]. * Telephone Encounter - Joaquina Woo Pss - 10/10/2021 4:38 PM EDT Pharmacy verified in [facility] Patient has been identified by name [...] advise. Joaquina Woo Pss documented in this encounterThe [facility]06-10-2022 Miscellaneous Notes* Telephone Encounter - Robson Alas LPN - 09/01/2021 4:08 PM EDT Pt needs to contact orginal prescriber for this medication. Robson Alas LPN * Telephone Encounter - Macarena eHrrera Pss - 09/01/2021 4:04 PM EDT Patient [...] to the pharmacy. Please call patient at: [phone] Macarena Herrera Pss documented in this encounterThe [facility]06-10-2022 Miscellaneous Notes* Telephone Encounter - Robson Alas LPN - 09/01/2021 4:02 PM EDT [facility] 08/02/21 NOV 02/06/22 * Telephone Encounter - Macarena Herrera Pss - 09/01/2021 3:52 PM EDT Patient has been identified by name and date of : Yes Pending Prescriptions Disp Refills VENLAFAXINE 75 MG TABLET 180 tablet 1 Sig: Take 1 tablet by mouth twice daily. GURMEET: No RX INSTRUCTIONS: Patient aware RX will be sent to pharmacy. No need to notify patient. Macarena Reyes documented in this encounterThe [facility]05-20-2022 Miscellaneous Notes* Telephone Encounter - Tonya Santos - 08/11/2021 10:51 AM EDT 2nd attempt: LVMTCB Thank you, Tonya Santos * Telephone Encounter - Jennifer Gomez Pss - 08/09/2021 1:43 PM EDT 1st attempt. Unable to leave message. No VM. Patient to schedule Card consult. [place] is end of December. Please offer Grace or Veronica ([place]) if patient requesting sooner appt. * Telephone Encounter - Yas Gamble Ma - 08/08/2021 5:12 PM EDT Patient was made aware of the results. Patient verbalizes understanding. 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 Is worsening. Call if any shortness of breath or edema. Recommend to see cardiology documented in this encounterThe [facility]05-12-2022 Miscellaneous Notes* Telephone Encounter - Yas Gamble Ma - 08/03/2021 1:07 PM EDT Patient was made aware of the results. Patient verbalizes understanding. Yas Gamble Ma * Telephone Encounter - Ge Ocampo MD - 08/03/2021 11:20 AM EDT Labs stable. Slightly anemic, could still be recovering from surgery but recheck labs to be on safeside in one week documented in this encounterThe [facility]05-03-2022 Miscellaneous Notes* Telephone Encounter - Melvina Thomas RN - 07/25/2021 4:50 PM EDT Pt called and is notified of providers massage and instructions. Pt voices understanding. Melvina Thomas RN * Telephone Encounter - Ge Ocampo MD - 07/25/2021 4:46 PM EDT [...] Antonio. Please advise pt. documented in this encounterThe [facility]04-26-2022 Miscellaneous Notes* Telephone Encounter - Lisbet Springer LPN - 07/18/2021 2:40 PM EDT Patient notified, verbalized understanding. States has only been using the mycolog. Patient states there is no open sores or drainage. Advised patient to keep area clean and applying the ointment, patient verbalized understanding. * Telephone Encounter - Ge Ocampo MD - 07/18/2021 2:19 PM EDT [...] do. Althea Herrera LPN documented in this encounterThe [facility]04-18-2022 History of Present illness Narrative* Jessie [...] 10, 2021 4:24 PM documented in this encounterThe [facility]04-17-2022 Miscellaneous Notes* Telephone Encounter - Cadence Herrera LPN - 07/09/2021 12:06 PM EDT Phone call placed prior, Ku6t active 07/08/21, message sent with updated results. Cadence Herrera LPN * Telephone Encounter - Cadence Herrera LPN - 07/07/2021 9:13 AM EDT Phone call placed brief message to contact a nurse. Cadence Herrera LPN * Telephone Encounter - Cadence Herrera LPN - 07/07/2021 9:11 AM EDT ----- Message from Rachna Garcia APRN.REAL ESTATE PROFESSIONAL sent at 07/06/2021 8:19 PM EDT ----- Please advise patient the radiologist sees a possible old fracture at the base of the distal fibula. This is not likely causing her pain, however I would like her to follow up with podiatry so he canevaluate the xrays. Referral entered. Rachna Garcia APRN.REAL ESTATE PROFESSIONAL documented in this encounterThe [facility] Hospital04-14-2022 Miscellaneous Notes* Telephone Encounter - Tonya [...] notify patient. Ciera Reeves documented in this encounterThe [facility]04-13-2022 Miscellaneous Notes* Telephone Encounter - Zoila Chu LPN - 07/05/2021 4:24 PM EDT Patient calling to check status of request. Went over notes below from Dr Ocampo with understanding. Aware rx to pharmacy. * Telephone Encounter - Ge Ocampo MD - 07/04/2021 5:22 PM EDT [...] you. Melvina Thomas RN documented in this encounterThe [facility]10-27-2008 History of Past illness Narrative* Problem Noted Date Resolved Date Sprain and strain of unspeci fied site of shoulder and upper arm 01/19/2008 02/11/2020 Hypothyroidism, acquired 09/11/2005 020 Abdominal pain, left lower quadrant 10/22/2017 documented as of this encounter (statuses as of 07/05/2021) [facility] History of Past illness Narrative* Problem Noted Date Resolved Date Sprain and strain of unspeci fied site of shoulder and upper arm 01/19/2008 02/11/2020 Hypothyroidism, acquired 09/11/2005 020 Abdominal pain, left lower quadrant 10/22/2017 documented as of this encounter (statuses as of 07/05/2021) [facility] History of Past illness Narrative* Problem Noted Date Resolved Date Sprain and strain of unspeci fied site of shoulder and upper arm 01/19/2008 02/11/2020 Hypothyroidism, acquired 09/11/2005 020 Abdominal pain, left lower quadrant 10/22/2017 documented as of this encounter (statuses as of 07/06/2021) [facility] History of Past illness Narrative* Problem Noted Date Resolved Date Sprain and strain of unspeci fied site of shoulder and upper arm 01/19/2008 02/11/2020 Hypothyroidism, acquired 09/11/2005 020 Abdominal pain, left lower quadrant 10/22/2017 documented as of this encounter (statuses as of 07/09/2021) [facility] History of Past illness Narrative* Problem Noted Date Resolved Date Sprain and strain of unspeci fied site of shoulder and upper arm 01/19/2008 02/11/2020 Hypothyroidism, acquired 09/11/2005 020 Abdominal pain, left lower quadrant 10/22/2017 documented as of this encounter (statuses as of 07/10/2021) [facility] History of Past illness Narrative* Problem Noted Date Resolved Date Sprain and strain of unspeci fied site of shoulder and upper arm 01/19/2008 02/11/2020 Hypothyroidism, acquired 09/11/2005 020 Abdominal pain, left lower quadrant 10/22/2017 documented as of this encounter (statuses as of 07/18/2021) [facility] History of Past illness Narrative* Problem Noted Date Resolved Date Sprain and strain of unspeci fied site of shoulder and upper arm 01/19/2008 02/11/2020 Hypothyroidism, acquired 09/11/2005 020 Abdominal pain, left lower quadrant 10/22/2017 documented as of this encounter (statuses as of 07/25/2021) [facility] History of Past illness Narrative* Problem Noted Date Resolved Date Sprain and strain of unspeci fied site of shoulder and upper arm 01/19/2008 02/11/2020 Hypothyroidism, acquired 09/11/2005 020 Abdominal pain, left lower quadrant 10/22/2017 documented as of this encounter (statuses as of 08/03/2021) [facility] History of Past illness Narrative* Problem Noted Date Resolved Date Sprain and strain of unspeci fied site of shoulder and upper arm 01/19/2008 02/11/2020 Hypothyroidism, acquired 09/11/2005 020 Abdominal pain, left lower quadrant 10/22/2017 documented as of this encounter (statuses as of 08/11/2021) [facility] History of Past illness Narrative* Problem Noted Date Resolved Date Sprain and strain of unspeci fied site of shoulder and upper arm 01/19/2008 02/11/2020 Hypothyroidism, acquired 09/11/2005 020 Abdominal pain, left lower quadrant 10/22/2017 documented as of this encounter (statuses as of 09/01/2021) [facility] History of Past illness Narrative* Problem Noted Date Resolved Date Sprain and strain of unspeci fied site of shoulder and upper arm 01/19/2008 02/11/2020 Hypothyroidism, acquired 09/11/2005 020 Abdominal pain, left lower quadrant 10/22/2017 documented as of this encounter (statuses as of 09/01/2021) [facility] History of Past illness Narrative* Problem Noted Date Resolved Date Sprain and strain of unspeci fied site of shoulder and upper arm 01/19/2008 02/11/2020 Hypothyroidism, acquired 09/11/2005 020 Abdominal pain, left lower quadrant 10/22/2017 documented as of this encounter (statuses as of 10/10/2021) [facility] History of Past illness Narrative* Problem Noted Date Resolved Date Sprain and strain of unspeci fied site of shoulder and upper arm 01/19/2008 02/11/2020 Hypothyroidism, acquired 09/11/2005 020 Abdominal pain, left lower quadrant 10/22/2017 documented as of this encounter (statuses as of 10/18/2021) [facility] History of Past illness Narrative* Problem Noted Date Resolved Date Sprain and strain of unspeci fied site of shoulder and upper arm 01/19/2008 02/11/2020 Hypothyroidism, acquired 09/11/2005 020 Abdominal pain, left lower quadrant 10/22/2017 documented as of this encounter (statuses as of 03/30/2022) [facility] History of Past illness Narrative* Problem Noted Date Resolved Date Sprain and strain of unspeci fied site of shoulder and upper arm 01/19/2008 02/11/2020 Hypothyroidism, acquired 09/11/2005 020 Abdominal pain, left lower quadrant 10/22/2017 documented as of this encounter (statuses as of 03/30/2022) [facility] History of Past illness Narrative* Problem Noted Date Resolved Date Sprain and strain of unspeci fied site of shoulder and upper arm 01/19/2008 02/11/2020 Hypothyroidism, acquired 09/11/2005 020 Abdominal pain, left lower quadrant 10/22/2017 documented as of this encounter (statuses as of 03/31/2022) [facility] Diagnosis Hypothyroidism, acquired Unspecified hypothyroidism Edema, unspecified type [facility] Diagnosis Anemia, unspecified type- Primary [facility] Diagnosis Aortic valve stenosis, etiology of cardiac valve disease unspecified- Primary [facility] Diagnosis Recurrent major depressive disorder, in remission (HCC) [facility] Diagnosis Hypothyroidism, acquired Unspecified hypothyroidism [facility] Diagnosis Edema, unspecified type [facility] Diagnosis SBO (small bowel obstruction) ([facility])- Primary Unspecified intestinal obstruction [facility] Diagnosis Essential hypertension, benign- Primary Mixed [...] acquired Unspecified hypothyroidism [facility] Diagnosis Recurrent major depressive disorder, in remission (HCC) [facility] Diagnosis Edema, unspecified type [facility]* Diagnosis Recurrent UTI (urinary tract infection)- Primary Urinary tract infection, site not specified Nonrheumatic aortic valve stenosis Aortic valve disorders Essential hypertension, benign Mixed hyperlipidemia Controlled type 2 diabetes mellitus without complication, without long-term current use of insulin (HCC) Hypothyroidism, unspecified type [facility] Diagnosis Decreased vision- Primary Unspecified visual [...] Band keratopathy, left [facility] Diagnosis Band keratopathy, 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) documented [facility]* Diagnosis Nonrheumatic aortic valve stenosis- Primary Aortic valve disorders Aortic valve disorder Aortic valve disorders Essential hypertension, benign [facility] Diagnosis Hypothyroidism, acquired Unspecified hypothyroidism [facility] encounter [facility] Diagnosis NO SHOW- Primary [facility] Diagnosis Anxiety- Primary Anxiety state, unspecified documented in this encounter [facility] for referral (narrative)* Outpatient Procedure (Routine) - Authorized Specialty Diagnoses / Procedures Referred By Contac t Referred To Contact [facility] Diagnoses Nonrheumatic aortic valve stenosis Procedures ECHO ECHO TTHRC R-T 2D W/WOM-MODE COMPL SPEC&COLR D Ge Ocampo MD [address] [place] [address] [facility] [address] [place] [address] Referral ID Status Reason Start Date Expiration Date Visits Requested Visits Authorized [id number] Authorized Auto-Generat ed Referral 07/23/2022 07/23/2023 1 1 * Consult, Test, Treat (Routine) - Authorized Specialty Diagnoses / Procedures Referred By Contac t Referred To Contact Urology Diagnoses Recurrent UTI (urinary tract infection) Procedures CONSULT TO UROLOGY OFFICE/OUTPATIENT NEW HIGH MDM 60-74 MINUTES Ge Ocampo MD [address] [place] [address] Referral ID Status Reason Start Date Expiration Date Visits Requested Visits Authorized [id number] Authorized PCP Requested Referral 07/23/2022 07/23/2023 1 1 [facility] for referral (narrative)* Outpatient Procedure (Routine) - Pending Review Specialty Diagnoses / Procedures Referred By Contac t Referred To Contact [facility] Diagnoses Nonrheumatic aortic valve stenosis Procedures ECHO ECHO TTHRC R-T 2D W/WOM-MODE COMPL SPEC&COLR Eda Ogden MD [address] [place] [address] [id number] [place] [address] Referral ID Status Reason Start Date Expiration Date Visits Requested Visits Authorized [id number] Pending Review Auto-Generat ed Referral 07/23/2023 01/21/2024 1 1 * Outpatient Procedure (Routine) - Pending Review Specialty Diagnoses / Procedures Referred By Contac t Referred To Contact [facility] Diagnoses Screening for ischemic heart disease Procedures ECG COMPLETE ECG ROUTINE ECG W/LEAST 12 LDS W/I&R Eda Fox MD [address] [place] [address] [facility] [address] [address] Referral ID Status Reason Start Date Expiration Date Visits Requested Visits Authorized [id number] Pending Review Auto-Generat ed Referral 01/14/2024 1 1 [facility] Reason for Referral Specialty Diagnoses / Procedures Referred By Contac t Referred To Contact Cardiology Diagnoses Aortic valve stenosis, etiology of cardiac valve disease unspecified Procedures CONSULT TO CARDIOLOGY OFFICE/OUTPATIENT [facility] 60-74 MINUTES Ge Ocampo MD [address] [place] [address] Referral ID Status Reason Start Date Expiration Date Visits Requested Visits Authorized [id number] Authorized PCP Requested Referral 08/08/2021 08/08/2022 1 1 Specialty Diagnoses / Procedures Referred By Contac t Referred To Contact [facility] Diagnoses SBO (small bowel obstruction) ([facility]) Procedures CONSULT TO PHYSICAL THERAPY PHYSICAL THERAPY EVALUATION HIGH COMPLEX 45 MINS Ge Ocampo MD [address] [place] [id number] [facility] [address] [address] Referral ID Status Reason Start Date Expiration Date Visits Requested Visits Authorized [id number] Authorized PCP Requested Referral Auto-Generate d Referral 03/28/2022 03/28/2023 99 99 Specialty Diagnoses / Procedures Referred By Contac t Referred To Contact Cardiology Diagnoses Nonrheumatic aortic valve stenosis Procedures CONSULT TO CARDIOLOGY OFFICE/OUTPATIENT [facility] 60-74 MINUTES Ge Ocampo MD [address] [place] [address] Referral ID Status Reason Start Date Expiration Date Visits Requested Visits Authorized [id number] Authorized PCP Requested Referral 04/04/2022 04/04/2023 1 1 Specialty Diagnoses / Procedures Referred By Nell t Referred To Contact [facility] Diagnoses Edema, unspecified type Localized swelling, mass and lump, left lower limb Procedures US LEG VEIN DVT UNL VAS LAB DUP-SCAN XTR VEINS UNILATERAL/LIMITED STUDY Ge Ocampo MD [address] [place] [address] [facility] [address] [place] [address] Referral ID Status Reason Start Date Expiration Date Visits Requested Visits Authorized [id number] Authorized Auto-Generat ed Referral 04/04/2022 04/04/2023 1 [...] or prosecute any alcohol or drug abuse patient.[facility] the event this information is protected by the Federal Confidentiality of Alcohol and Drug Abuse Patient Records regulations: The Federal rules restrict any use of the information to criminally investigate or prosecute any alcohol or drug abuse patient.[facility] the event this information is protected by the Federal Confidentiality of Alcohol and Drug Abuse Patient Records regulations: The Federal rules restrict any use of the information to criminally investigate or prosecute any alcohol or drug abuse patient.[facility] the event this information is protected by the Federal Confidentiality of Alcohol and Drug Abuse Patient Records regulations: The Federal rules restrict any use of the information to criminally investigate or prosecute any alcohol or drug abuse patient.[facility] the event this information is protected by the Federal Confidentiality of Alcohol and Drug Abuse Patient Records regulations: The Federal rules restrict any use of the information to criminally investigate or prosecute any alcohol or drug abuse patient.[facility] the event this information is protected by the Federal Confidentiality of Alcohol and Drug Abuse Patient Records regulations: The Federal rules restrict any use of the information to criminally investigate or prosecute any alcohol or drug abuse patient.[facility] the event this information is protected by the Federal Confidentiality of Alcohol and Drug Abuse Patient Records regulations: The Federal rules restrict any use of the information to criminally investigate or prosecute any alcohol or drug abuse patient.[facility] the event this information is protected by the Federal Confidentiality of Alcohol and Drug Abuse Patient Records regulations: The Federal rules restrict any use of the information to criminally investigate or prosecute any alcohol or drug abuse patient.[facility] the event this information is protected by the Federal Confidentiality of Alcohol and Drug Abuse Patient Records regulations: The Federal rules restrict any use of the information to criminally investigate or prosecute any alcohol or drug abuse patient.[facility] the event this information is protected by the Federal Confidentiality of Alcohol and Drug Abuse Patient Records regulations: The Federal rules restrict any use of the information to criminally investigate or prosecute any alcohol or drug abuse patient.[facility] the event this information is protected by the Federal Confidentiality of Alcohol and Drug Abuse Patient Records regulations: The Federal rules restrict any use of the information to criminally investigate or prosecute any alcohol or drug abuse patient.[facility] the event this information is protected by the Federal Confidentiality of Alcohol and Drug Abuse Patient Records regulations: The Federal rules restrict any use of the information to criminally investigate or prosecute any alcohol or drug abuse patient.[facility] the event this information is protected by the Federal Confidentiality of Alcohol and Drug Abuse Patient Records regulations: The Federal rules restrict any use of the information to criminally investigate or prosecute any alcohol or drug abuse patient.[facility] the event this information is protected by the Federal Confidentiality of Alcohol and Drug Abuse Patient Records regulations: The Federal rules restrict any use of the information to criminally investigate or prosecute any alcohol or drug abuse patient.[facility] the event this information is protected by the Federal Confidentiality of Alcohol and Drug Abuse Patient Records regulations: The Federal rules restrict any use of the information to criminally investigate or prosecute any alcohol or drug abuse patient.[facility] the event this information is protected by the Federal Confidentiality of Alcohol and Drug Abuse Patient Records regulations: The Federal rules restrict any use of the information to criminally investigate or prosecute any alcohol or drug abuse patient.[facility] the event this information is protected by the Federal Confidentiality of Alcohol and Drug Abuse Patient Records regulations: The Federal rules restrict any use of the information to criminally investigate or prosecute any alcohol or drug abuse patient.[facility] the event this information is protected by the Federal Confidentiality of Alcohol and Drug Abuse Patient Records regulations: The Federal rules restrict any use of the information to criminally investigate or prosecute any alcohol or drug abuse patient.[facility] the event this information is protected by the Federal Confidentiality of Alcohol and Drug Abuse Patient Records regulations: The Federal rules restrict any use of the information to criminally investigate or prosecute any alcohol or drug abuse patient.[facility] the event this information is protected by the Federal Confidentiality of Alcohol and Drug Abuse Patient Records regulations: The Federal rules restrict any use of the information to criminally investigate or prosecute any alcohol or drug abuse patient.[facility] the event this information is protected by the Federal Confidentiality of Alcohol and Drug Abuse Patient Records regulations: The Federal rules restrict any use of the information to criminally investigate or prosecute any alcohol or drug abuse patient.[facility] the event this information is protected by the Federal Confidentiality of Alcohol and Drug Abuse Patient Records regulations: The Federal rules restrict any use of the information to criminally investigate or prosecute any alcohol or drug abuse patient.[facility] the event this information is protected by the Federal Confidentiality of Alcohol and Drug Abuse Patient Records regulations: The Federal rules restrict any use of the information to criminally investigate or prosecute any alcohol or drug abuse patient.[facility] the event this information is protected by the Federal Confidentiality of Alcohol and Drug Abuse Patient Records regulations: The Federal rules restrict any use of the information to criminally investigate or prosecute any alcohol or drug abuse patient.[facility] the event this information is protected by the Federal Confidentiality of Alcohol and Drug Abuse Patient Records regulations: The Federal rules restrict any use of the information to criminally investigate or prosecute any alcohol or drug abuse patient.[facility] the event this information is protected by the Federal Confidentiality of Alcohol and Drug Abuse Patient Records regulations: The Federal rules restrict any use of the information to criminally investigate or prosecute any alcohol or drug abuse patient.[facility] the event this information is protected by the Federal Confidentiality of Alcohol and Drug Abuse Patient Records regulations: The Federal rules restrict any use of the information to criminally investigate or prosecute any alcohol or drug abuse patient.[facility] the event this information is protected by the Federal Confidentiality of Alcohol and Drug Abuse Patient Records regulations: The Federal rules restrict any use of the information to criminally investigate or prosecute any alcohol or drug abuse patient.[facility] the event this information is protected by the Federal Confidentiality of Alcohol and Drug Abuse Patient Records regulations: The Federal rules restrict any use of the information to criminally investigate or prosecute any alcohol or drug abuse patient.[facility] the event this information is protected by the Federal Confidentiality of Alcohol and Drug Abuse Patient Records regulations: The Federal rules restrict any use of the information to criminally investigate or prosecute any alcohol or drug abuse patient.[facility] the event this information is protected by the Federal Confidentiality of Alcohol and Drug Abuse Patient Records regulations: The Federal rules restrict any use of the information to criminally investigate or prosecute any alcohol or drug abuse patient.[facility] the event this information is protected by the Federal Confidentiality of Alcohol and Drug Abuse Patient Records regulations: The Federal rules restrict any use of the information to criminally investigate or prosecute any alcohol or drug abuse patient.[facility] the event this information is protected by the Federal Confidentiality of Alcohol and Drug Abuse Patient Records regulations: The Federal rules restrict any use of the information to criminally investigate or prosecute any alcohol or drug abuse patient.[facility] the event this information is protected by the Federal Confidentiality of Alcohol and Drug Abuse Patient Records regulations: The Federal rules restrict any use of the information to criminally investigate or prosecute any alcohol or drug abuse patient.[facility] the event this information is protected by the Federal Confidentiality of Alcohol and Drug Abuse Patient Records regulations: The Federal rules restrict any use of the information to criminally investigate or prosecute any alcohol or drug abuse patient.[facility] the event this information is protected by the Federal Confidentiality of Alcohol and Drug Abuse Patient Records regulations: The Federal rules restrict any use of the information to criminally investigate or prosecute any alcohol or drug abuse patient.[facility]In the event this information is protected by the Federal Confidentiality of Alcohol and Drug Abuse Patient Records regulations: The Federal rules restrict any use of the information to criminally investigate or prosecute any alcohol or drug abuse patient.[facility] Reason for Visit (unrecogniz ed section and content) Reason Onset Date Comments Refill Request 07/06/2021 Reason Comments Results Reason Comments Patient Update Reason Comments Patient Update Questions Returning Patient's Call Reason Comments Results Reason Comments Prescription Refills Reason Onset Date Comments Refill Request 10/10/2021 Reason Onset Date Comments Refill Request 10/18/2021 Reason Comments Orders Reason Comments [facility], PT plan of care Reason Comments [facility] nursing clarification Reason Comments 6 Month [...] Patient Specialty Diagnoses / Procedures Referred By Nell t Referred To Contact Cardiology Diagnoses Nonrheumatic aortic valve stenosis Procedures CONSULT TO CARDIOLOGY OFFICE/OUTPATIENT NEW HIGH MDM 60-74 MINUTES Ge Ocampo MD [address] [place] [address] Referral ID Status Reason Start Date Expiration Date V isits Requested Visits Authorized [id number] Closed PCP Requested Referral 04/04/2022 04/04/2023 1 1 Reason Onset Date Comments Refill Request 02/06/2023 Reason Comments Patient Question Patient Update Reason Comments Acute Visit Care Teams (unrecognized sec tion and content) [employer] Relationship Specialty Start Date End Date Ge Ocampo MD [address] [place], [place] [address] PCP - General Family Practice 07/17/17 Nahed Batista [address] [place] [address] Consulting Urology 03/17/19 [facility] 10/09/18 [employer] Relationship Specialty Start Date End Date Ge Ocampo MD [address] [facility], [place] [id number] PCP - General Family Practice 07/17/17 Nahed Batista [address] [facility] [address] [place] [address] Consulting Urology 03/17/19 [facility] 10/09/18 [employer] Supervisor Relationship Specialty Start Date End Date Ge Ocampo MD [address] [facility], [place] [id number] PCP - General Family Practice 07/17/17 Nahed Batista [address] [facility] [address] [place] [address] Consulting Urology 03/17/19 [facility] 10/09/18 [employer] Supervisor Relationship Specialty Start Date End Date Ge Ocampo MD [address] [facility], [place] [id number] PCP - General Family Practice 07/17/17 Nahed Batista [address] [facility] [address] [place] [address] Consulting Urology 03/17/19 [facility] 10/09/18 [employer] Supervisor Relationship Specialty Start Date End Date Ge Ocampo MD [address] [facility], [place] [address] PCP - General Family Practice 07/17/17 Nahed Batista [address] [facility] [address] [place] [address] Consulting Urology 03/17/19 [facility] 10/09/18 [employer] Supervisor Relationship Specialty Start Date End Date Ge Ocampo MD [address] [facility], [place] [id number] PCP - General Family Practice 07/17/17 Nahed Batista [address] [facility] [address] [place] [address] Consulting Urology 03/17/19 [facility] 10/09/18 [employer] Supervisor Relationship Specialty Start Date End Date Ge Ocampo MD [address] [facility], [place] [address] PCP - General Family Practice 07/17/17 Nahed Batista [address] [facility] [address] [place] [address] Consulting Urology 03/17/19 [facility] 10/09/18 [employer] Loading Supervisor Relationship Specialty Start Date End Date Ge Ocampo MD [address] [place] [address] PCP - General Family Practice 07/17/17 Nahed Batista [address] [facility] [address] [place] [address] Consulting Urology 03/17/19 [facility] 10/09/18 [employer] Supervisor Relationship Specialty Start Date End Date Ge Ocampo MD [address] [facility], [place] [address] PCP - General Family Medicine 07/17/17 Nahed Batista [address] [facility] [address] [place] [address] Consulting Urology 03/17/19 [facility] 10/09/18 [employer] Loading Supervisor Relationship Specialty Start Date End Date Ge Ocampo MD [address] [place], [place] [address] PCP - General Family Medicine 07/17/17 [facility]hed Batista [address] [facility] [address], [place] [address] Consulting Urology 03/17/19 [facility] 10/09/18 [employer] Loading Supervisor Relationship Specialty Start Date End Date Ge Ocampo MD [address] [place], [place] [address]121 PCP - General Family Medicine 07/17/17 Nahed Batista [address] [address] Consulting Urology 03/17/19 [facility] 10/09/18 [employer] Loading Supervisor Relationship Specialty Start Date End Date Ge Ocampo MD [address] [place], [place] [address] PCP - General Family Medicine 07/17/17 Nahed Batista [address] [facility] [address] [place] [address] Consulting Urology 03/17/19 [facility] 10/09/18 [employer] Loading Supervisor Relationship Specialty Start Date End Date Ge Ocampo MD [address] [place], [place] [address] PCP - General Family Medicine 07/17/17 Nahed Batista [address] [place] [address] Consulting Urology 03/17/19 [facility] 10/09/18 [employer] Loading Supervisor Relationship Specialty Start Date End Date Ge Ocampo MD [address] [place], [place] [id number] PCP - General Family Medicine 07/17/17 Nahed Batista [address] [id number] Consulting Urology 03/17/19 [facility] 10/09/18 [employer] Loading Supervisor Relationship Specialty Start Date End Date Ge Ocampo MD [address] [place], [place] [id number] PCP - General Family Medicine 07/17/17 Nahed Batista [address] [id number] Consulting Urology 03/17/19 [facility] 10/09/18 [employer] Loading Supervisor Relationship Specialty Start Date End Date Ge Ocampo MD [address] [place], [place] [address] PCP - General Family Medicine 07/17/17 Nahed Batista [address] [facility] [address] [address] Consulting Urology 03/17/19 [facility] 10/09/18 [employer] Loading Supervisor Relationship Specialty Start Date End Date Ge Ocampo MD [address] [place], [place] [address] PCP - General Family Medicine 07/17/17 Nahed Batista [address] [id number] Consulting Urology 03/17/19 [facility] 10/09/18 [employer] Loading Supervisor Relationship Specialty Start Date End Date Ge Ocampo MD [address] [facility], [place] [address] PCP - General Family Medicine 07/17/17 Nahed Batista [address] [facility] [address] [place] [address] Consulting Urology 03/17/19 [facility] 10/09/18 [employer] Loading Supervisor Relationship Specialty Start Date End Date Ge Ocampo MD [address] [place] [address] PCP - General Family Medicine 07/17/17 Nahed Batista [address] [facility] [facility] [address] [place] [address] Consulting Urology 03/17/19 [facility] 10/09/18 [employer] Loading Supervisor Relationship Specialty Start Date End Date Ge Ocampo MD [address] [place] [address] PCP - General Family Medicine 07/17/17 Nahed Batista [address] [facility] [facility] [address] [place], [place] [address] Consulting Urology 03/17/19 [facility] 10/09/18 [employer] Loading Supervisor Relationship Specialty Start Date End Date Ge Ocampo MD [address] [place] [address] PCP - General Family Medicine 07/17/17 Nahed Batista [address] [facility] [address] [place] [address] Consulting Urology 03/17/19 [facility] 10/09/18 [employer] Loading Supervisor Relationship Specialty Start Date End Date Ge Ocampo MD [address] [place], [place] [address] PCP - General Family Medicine 07/17/17 Nahed Batista [address] [place] [address] Consulting Urology 03/17/19 [facility] 10/09/18 [employer] Loading Supervisor Relationship Specialty Start Date End Date Ge Ocampo MD [address] [place], [place] [address] PCP - General Family Medicine 07/17/17 Nahed Batista [address] [place] [address] Consulting Urology 03/17/19 [facility] 10/09/18 [employer] Loading Supervisor Relationship Specialty Start Date End Date Ge Ocampo MD [address] [facility], [place] [address] PCP - General Family Medicine 07/17/17 Nahed Batista [address] [facility] [facility] [address] [place] [address] Consulting Urology 03/17/19 [facility] 10/09/18 INFORMATION SOURCE (unrecogn ized section and content) DATE CREATED AUTHOR AUTHOR'S TOMMY IGNACIO 04/28/2023 [facility] FOR RECORDS PERTAINING [...] BE BASED ON THE PRIMARY CLINICAL RECORDS. [employer] provides no warranty or guarantee of the accuracy or completeness of information in this document.
[2023-05-14 09:28] LABS: Absolute Lymphocyte Count 1.67 X10^3/uL (0.83-4.51); Absolute Neutrophil Count 3.2 X10^3/uL (2.0-7.7); Basophil# 0.03 X10^3/uL; Basophil% 0.6 % (0-1); Eosinophil# 0.12 X10^3/uL; Eosinophils% 2.2 % (0-5); Hematocrit 39.4 % (37-47); Hemoglobin 12.4 g/dL (12.0-15.0); Lymphocyte # 1.67 X10^3/ul (0.83-4.51); Mean Corp Hgb Conc 31.5 g/dL (32-36); Mean Corpuscular Hgb 28.6 pg (27.0-32.0); Mean Corpuscular Volume 90.8 fL (81-99); Mean Platelet Vol. 10.3 fl (6.2-12.0); Monocyte# 0.33 X10^3/uL; Monocyte% 6.1 % (0-10); NRBC Flagged by Analyzer 0 % (0-5); Neutrophil # 3.22 X10^3/uL (2.7-7.7); Neutrophil % 59.7 % (47-70); Platelet Count 200 K/mm3 (150-450); RBC Distribution Width CV 12.8 % (11.6-14.6); RBC Distribution Width SD 42.7 fl (35.1-43.9); Red Blood Count 4.34 M/mm3 (4.2-5.4); White Blood Count 5.4 K/mm3 (4.4-11.0)
[2023-05-14 09:56] LABS: Anion Gap 3 (5-15); BUN 33 mg/dL (7-18); BUN/Creat Ratio 52.5 RATIO (10-20); Calcium,Total 10.3 mg/dL (8.5-10.1); Chloride 106 mmol/L (98-107); Creatinine, Serum 0.63 mg/dL (0.55-1.02); EST Glomerular Filtration Rate 95 mL/min (>60); Est Glom Filt Rate - Afr Amer 115 mL/min (>60); Glucose 160 mg/dL (74-106); Potassium 3.8 mmol/L (3.5-5.1); Sodium Level 139 mmol/L (136-145)
== END ==
LOC: OLS.WHLTCC 05:00
PROVIDERS: PCP Family Medicine; Visit Provider Internal Medicine
DX: R62.7 Adult failure to thrive (principal); E03.9 Hypothyroidism, unspecified
CPT/HCPCS: 36415; 80048; 85025

== ENCOUNTER 2023-05-16 11:39 | Inpatient (IN) | payer MEDICARE, OTHER, SELFPAY ==
[2023-05-16 11:42] VITALS: BP 156/67; PULSE 68; RESP 14; TEMP 36.6; O2SAT 97; BMI 28.5
--- NOTE | 2023-05-16 12:09 | EKG12_ITS ---
Test Reason : WEAKNESS Blood Pressure : / mmHG Vent. Rate : 076 BPM Atrial Rate : 076 BPM P-R Int : 246 ms QRS Dur : 144 ms QT Int : 474 ms P-R-T Axes : 080 -39 046 degrees QTc Int : 533 ms Sinus rhythm with 1st degree A-V block Left axis deviation Left bundle branch block Abnormal ECG Confirmed by JOSE JUNG, ZAIRE ([id number]), communications editor KRISTEL HILARIO ([id number]) on 05/17/2023 1:06:09 PM Referred By: Confirmed By:ZAIRE GARCIA MD
--- NOTE | 2023-05-16 12:10 | EDS_ITS ---
HPI History of Present Illness Chief Complaint: Weakness Detail of Chief Complaint: Right-sided weakness Informant: patient and SNF Narrative Narrative: Patient presents via EMS secondary to right-sided weakness. Nursing staff got report both from the [facility] as well as EMS at bedside and got conflicting reports. Call from nurse practitioner this morning stated that patient had right-sided weakness with flaccid right arm at 9:00 this morning and family wanted her evaluated for a stroke. Nurse at bedside told EMS patient has chronic right- sided weakness that has worsened for the past 48 hours. Patient denies any pain. She has had frequent falls in the past, but denies any recently. [facility] Medical History Adult failure to thrive Anxiety and depression Cognitive impairment DM (diabetes mellitus), type 2 Heart murmur History of ovarian cancer Hypertension Hypothyroidism Partial obstruction of small intestine Weakness Home Medications metformin 500 mg tablet 500 mg PO TIDCM blood sugar 12/10/13 [History Last Taken 03/23/22] vit C 250 mg-vit E 90 mg-zinc 40 mg-copper 1 [id number] capsule (PreserVision AREDS-2) 1,000 mg PO DAILY multivitamin 04/22/14 [History Last Taken 03/23/22] venlafaxine 75 mg tablet 75 mg PO BID depression 08/20/18 [History Last Taken 03/23/22] diphenhydramine HCl 25 mg capsule 12.5 mg PO QHS PRN Insomnia 11/09/18 [History Last Taken Unknown] ascorbic acid (vitamin C) 1,000 mg capsule,extended release 1,000 cap PO DAILY SUPPLEMENT 09/19/20 [History Last Taken 03/23/22] levothyroxine 88 mcg tablet 88 mcg PO DAILY THYROID 03/03/21 [History Last Taken 03/23/22] methenamine mandelate 1 gram tablet 1 g PO BID URINATION 03/03/21 [History Last Taken 03/23/22] hydrochlorothiazide 25 mg tablet 25 mg PO 1XD bp 03/24/22 [History Last Taken Unknown] menthol 0.44 %-zinc oxide 20.6 % topical ointment (Calmoseptine) 1 applic topical BID Check with primary doctor 03/24/22 [History Last Taken Unknown] ascorbic acid (vitamin C) 500 mg capsule,extended release (Vitamin C) 500 mg PO DAILY 04/18/23 [History Last Taken Unknown] carboxymethylcellulose sodium 0.5 % eye drops (Refresh Tears) 1 drp EACH EYE DAILY 04/18/23 [History Last Taken Unknown] desvenlafaxine succinate 50 mg tablet,extended release 24 hr 50 mg PO Q24H 04/18/23 [History Last Taken Unknown] nystatin-triamcinolone 100,000 unit/gram-0.1 % topical ointment 1 applic topical BID PRN 04/18/23 [History Last Taken Unknown] vibegron 75 mg tablet (Gemtesa) 75 mg PO DAILY 04/18/23 [History Last Taken Unknown] Allergy/AdvReac Type Severity Reaction Status Date / Time amoxicillin [From Augmentin] Allergy Itching Verified 05/16/23 11:56 cefdinir Allergy Rash Verified 05/16/23 11:56 ciprofloxacin [From Cipro] Allergy Swelling Verified 05/16/23 11:56 clavulanic acid Allergy Itching Verified 05/16/23 11:56 [From Augmentin] doxycycline calcium Allergy Unknown Verified 05/16/23 11:56 [From Vibramycin] doxycycline hyclate Allergy Unknown Verified 04/18/23 00:49 [From Vibramycin] doxycycline monohydrate Allergy Unknown Verified 05/16/23 11:56 [From Vibramycin] fluticasone Allergy Unknown Verified 05/16/23 11:56 influenza virus vaccine, Allergy Swelling Verified 05/16/23 11:56 specific [Influenza Virus Vacc,Specific] losartan Allergy Angioedema Verified 05/16/23 11:56 pneumococcal vaccine Allergy Rash Verified 05/16/23 11:56 [Pneumococcal Vaccine] promethazine HCl Allergy Unknown Verified 05/16/23 11:56 [From Phenergan] tetracycline [Tetracycline] Allergy Unknown Verified 05/16/23 11:56 cephalexin [From Keflex] AdvReac Rash Verified 05/16/23 11:56 metronidazole [From Flagyl] AdvReac Unknown Verified 05/16/23 11:56 sulfamethoxazole AdvReac Rash Verified 05/16/23 11:56 [From Bactrim] trimethoprim [From Bactrim] AdvReac Rash Verified 05/16/23 11:56 Family History Mother Liver cancer Father Heart disease Surgical History History of cataract surgery History of exploratory laparotomy Hx of tonsillectomy Status post small bowel resection Status post total abdominal hysterectomy Social History household members: none Smoking Status: Never smoker alcohol intake: current alcohol intake frequency: holidays/special occasions only substance use type: does not use ROS ROS ED Constitutional Constitutional ED: Denies chills or fever(s) Eyes Eyes: Denies discharge from eye(s) ENT ENT ED: Denies discharge from eye(s), rhinorrhea or sore throat Cardiovascular Cardiovascular: Denies chest pain or palpitations Respiratory/Chest Respiratory/Chest: Denies cough or dyspnea Gastrointestinal Gastrointestinal: Denies abdominal pain, nausea or vomiting Genitourinary Genitourinary ED: Denies dysuria Musculoskeletal Musculoskeletal: Denies back pain or extremity pain Integumentary Denies Abrasions or rash Neurologic Neurologic: Reports weakness; Denies headache(s) Psychiatric Psychiatric: Denies anxiety or depression Allergic/Immunologic Allergic/Immunologic ED: Denies lip swelling or urticaria EXAM Physical Exam Const Vital Signs: 05/16/23 11:42 05/16/23 13:57 Temperature 97.9 F Temperature Source Temporal Pulse Rate 68 79 Respiratory Rate 14 Blood Pressure 156/67 H 167/63 H Blood Pressure Mean 96 97 Pulse Ox 97 Oxygen Delivery Method Room Air Positive well nourished and well developed General Appearance ED: well developed HEENT Reports dry mucous membranes Mouth ED: Yes dry mucous membranes Mouth: dry mucous membranes Eyes EOMs intact bilaterally Chest Wall inspection of chest normal and palpation of chest normal Resp normal respiratory effort and clear to auscultation bilaterally Cardio regular rate and regular rhythm GI non-tender Palpation: soft Extremity Extremity Narrative: Right arm and leg flaccid at this time. She does report normal sensation with palpation. She has good distal pulses. No skin changes. Neuro Neuro Narrative: Patient ANO x 2 which is her baseline. Right-sided weakness as noted above. MDM MDM MDM Narrative Medical decision making narrative: At this time bedside nurse reports she was last at her baseline greater than 48 hours ago. Stroke alert will not be initiated, however she will undergo stroke workup. IV line established. Labwork obtained to evaluate for leukocytosis, anemia, and electrolyte derangement. CT of the head along with CTA of the head and neck obtained. EKG obtained to evaluate for cardiac arrhythmia/ischemia. Urinalysis obtained to evaluate for infection/hematuria. History & Record Review Discussion w/independent historian: Patient and Family Additional record(s) reviewed:: Prior inpatient record, Prior ED visit and Prior labs Lab Data Attestation: I reviewed the patient's lab results. Labs: Laboratory Results - last 24 hr 05/16/23 05/16/23 05/16/23 12:20 12:35 13:30 WBC 6.0 RBC 4.46 Hgb 12.9 Hct 39.8 MCV 89.2 MCH 28.9 MCHC 32.4 RDW Std Deviation 41.8 RDW Coeff of Marleni 12.7 Plt Count 197 MPV 9.5 Immature Gran % (Auto) 0.500 Neut % (Auto) 68.4 Lymph % (Auto) 20.9 Ector % (Auto) 8.0 Eos % (Auto) 1.7 Baso % (Auto) 0.5 Absolute Neuts (auto) 4.1 Absolute Lymphs (auto) 1.26 Nucleated RBC % 0 Sodium 137 Potassium 3.6 Chloride 106 Carbon Dioxide 27.0 Anion Gap 4 L BUN 29 H Creatinine 0.71 Estim Creat Clear Calc 52.89 Est GFR (MDRD) Af Amer 100 Est GFR (MDRD) Non-Af 83 BUN/Creatinine Ratio 40.8 H Glucose 211 H Calcium 9.8 Troponin I High Sens 106 H 97 H Urine Color Yellow Urine Clarity Cloudy Urine pH 6.0 Ur Specific Topping 1.020 Urine Protein 30 H Urine Glucose (UA) Normal Urine Ketones Negative Urine Occult Blood 150 H Urine Nitrite Negative Urine Bilirubin Negative Urine Urobilinogen Normal Ur Leukocyte Esterase 500 H Urine RBC 0 SEEN Urine WBC >100 SEEN Ur Squamous Epith Cells 0 SEEN Urine Bacteria 3+ Urine Mucus 0 SEEN Radiography Diagnostic Testing: Clinical Impression(s) from Imaging Studies Head/Neck CTA 05/16/23 12:10 IMPRESSION: 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 Electronically Signed: Kyle Oates MD at 13:43 EST , EKG Initial EKG: Attestation: I personally reviewed and interpreted this EKG as follows: Interpretation: Sinus Rhythm (Sinus at 76 with left bundle branch block. No acute ischemia.) Treatment and Re-Evaluation :: CBC was normal white count 6.0 with normal differential. Hemoglobin is 12.9. Chemistry studies unremarkable other than a glucose of 211. Initial troponin is 106 with a repeat troponin of 97. Urinalysis does reveal evidence of infection with 3+ bacteria and greater than 100 white cells. EKG is sinus rhythm with no acute ischemia. CTA of the head and neck reveals less than 50% stenosis. Noncontrast portion shows chronic changes. Daughter and son-in-law are now back in the room. They state that since transfer to the residential in late March she has had progressive decline with limited movement of her right side. They do state that she had previously been able to raise her arm to do some things for herself. She now has no movement on the right. She does have good sensation. Patient states that she is never had an MRI. She does raise concern about being claustrophobic and states she may need sedation if she needs an MRI. At this time bedside swallow test has been completed and patient given p.o. Macrobid. She has allergies to multiple antibiotics. Urine culture has been sent and I will speak with hospitalist regarding admission. Discharge Plan Triage Chief Complaint: Weakness ED Provider: Joaquina Hoyt Dx/Rx/DC Orders Clinical Impression: UTI (urinary tract infection), Right sided weakness Prescriptions: No Action metformin 500 MG tablet 500 mg PO TIDCM Patient Comments: DIABETES PreserVision AREDS-2 1 EACH capsule 1,000 mg PO DAILY venlafaxine 75 MG tablet 75 mg PO BID diphenhydramine HCl 25 MG capsule 12.5 mg PO QHS PRN (Reason: Insomnia) ascorbic acid (vitamin C) 1,000 mg Capsule, Extended Release 1,000 cap PO DAILY levothyroxine 88 mcg tablet 88 mcg PO DAILY methenamine mandelate 1 gram tablet 1 g PO BID hydrochlorothiazide 25 mg tablet 25 mg PO 1XD Patient Comments: TAKE 1 TABLET BY MOUTH ONCE DAILY menthol-zinc oxide [Calmoseptine] 0.44-20.6 % ointment 1 applic topical BID Protocol: *Topical Application Instructions APPLICATION INSTRUCTIONS: coccyx nystatin-triamcinolone 100,000-0.1 unit/gram-% ointment 1 applic TOPICAL BID PRN Patient Comments: Apply sparingly to perineum twice daily for irritation/infection. Gemtesa 75 mg tablet 75 mg PO DAILY Patient Comments: TAKE 1 TABLET BY MOUTH EVERY DAY desvenlafaxine succinate 50 mg tablet extended release 24 hr 50 mg PO Q24H Patient Comments: Take 1 tablet by mouth once daily. ascorbic acid (vitamin C) [Vitamin C] 500 mg capsule, extended release 500 mg PO DAILY carboxymethylcellulose sodium [Refresh Tears] 0.5 % drops 1 drp EACH EYE DAILY Primary Care Provider: Da Ocampo Referrals: Da Ocampo MD [Primary Care Provider] - Disposition Disposition: Acute Care [facility]
--- NOTE | 2023-05-16 12:10 | CT_ITS ---
STUDY: CTA HEAD AND NECK WITH CONTRAST REASON FOR EXAM: Female, 88 years old. Right sided weakness RADIATION DOSAGE (If Supplied By Facility): CTDIvol = ( 29.04 ) mGy, DLP = ( 1416.78 ) mGycm TECHNIQUE: CT angiography was performed with a multi-detector CT scanner. Data acquisition was obtained from the skull base through the vertex following intravenous administration of IV 100mL [id number]-[id number]. MIP images were reconstructed from the axial data set. Post-processing of the angiographic images was performed, with multiplanar reformation and 3D reconstruction. Individualized dose optimization techniques were used for this CT. COMPARISON: No relevant priors. FINDINGS: Normal bilateral petrous carotid arteries. There is calcified plaque formation of the right cavernous carotid artery, without a cross-sectional luminal stenosis. There is calcified plaque formation of the left cavernous carotid artery, without a cross-sectional luminal stenosis. Normal right A1 segments of the anterior cerebral artery. Normal left A1 segments of the anterior cerebral artery. Normal intact anterior communicating artery (ACOM). Normal bilateral A2 segments of the anterior cerebral arteries. Normal right M1 and M2 segments of the middle cerebral arteries, with a normal M1 bifurcation. Normal left M1 and M2 segments of the middle cerebral arteries, with a normal M1 bifurcation. Normal right posterior communicating artery (PCOM). Normal left posterior communicating artery (PCOM). Normal bilateral vertebral arteries. Normal basilar artery with a normal basilar bifurcation. The visualized bilateral superior cerebellar (SCA) arteries are normal. Normal bilateral P1, P2 and visualized P3 segments of the posterior cerebral arteries. There is no demonstrated aneurysm of the elem of Palacio. Moderate degree of cerebral atrophy. Areas of decreased attenuation within the white matter tracts of the supratentorial brain consistent with microvascular disease changes. There are small punctate calcification of the basal ganglia which are seen in aging brain as a normal variant. Diffuse enlargement of the thyroid gland. AORTIC ARCH: There is atherosclerotic calcific plaque formation of the aortic arch and great vessels arising from the aortic arch, without a hemodynamically significant stenosis. There is a normal origin of the brachiocephalic, left common carotid, and left subclavian arteries. RIGHT CAROTID ARTERIES: There is atherosclerotic plaque formation of the common carotid artery, but without a hemodynamically significant stenosis. Normal right common carotid bulb. There is mild atherosclerotic plaque formation of the origin of the right internal carotid artery with less than 50% cross sectional diameter stenosis. Normal visualized cervical portion of the right internal carotid artery. Normal origin of the right external carotid artery (ECA). LEFT CAROTID ARTERIES: Normal left common carotid artery (CCA). Normal left common carotid bulb. There is mild atherosclerotic plaque formation of the origin of the left internal carotid artery with less than 50% cross sectional diameter stenosis. Normal visualized cervical portion of the left internal carotid artery. Normal origin of the left external carotid artery (ECA). VERTEBRAL ARTERIES: Normal bilateral vertebral arteries. 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 Electronically Signed: Kyle Oates MD at 13:43 EST ,
--- OUTSIDE RECORDS SUMMARY | 2023-05-16 12:27 | XMS RPT_ITS | CCD ---
Author Name Unknown Address [address] [place] [address] Organization [facility] Care Team Providers Care Sql Database Programmer Name Role Phone Da Ocampo MD Primary Care Provider Nahed Batista Unavailable [phone] JERRY NUGENT Attending Unavailable JERRY NUGENT Admitting Unavailable DA OCAMPO Primary Care Unavailable Da Ocampo MD Primary Care Provider [phone] Nahed Batista Unavailable [phone] DA OCAMPO Primary Care Unavailable AD OCAMPO Attending Unavailable DA OCAMPO Primary Care [...] [AMOXICILLIN-POT CLAVULANATE] Drug Allergy 07-18-19 18 Itching [facility] (13 sources) Angiotensin II receptor antagonist; Translations: [ARB-ANGIOTENSIN RECEPTOR ANTAGONIST] Drug Allergy 11-12-19 19 Angioedema [facility] Work Phone: [phone] (20 sources) Atenolol; Translations: [ATENOLOL] Drug Allergy 08-08-19 09 Itching [facility] Work Phone: [phone] (20 sources) cefdinir; Translations: [CEFDINIR] Drug Allergy 07-18-19 18 Rash [facility] (20 sources) Cephalexin; Translations: [CEPHALEXIN] Drug Allergy 10-12-19 19 Rash [facility] Work Phone: [phone] (20 sources) Ciprofloxacin; Translations: [CIPROFLOXACIN] Drug Allergy 11-13-19 19 Other: See Comments [facility] Work Phone: [phone] (20 sources) Doxycycline; Translations: [DOXYCYCLINE CALCIUM] Drug Allergy 01-10-20 05 [facility] Work Phone: [phone] (20 sources) meloxicam; Translations: [MELOXICAM] Drug Allergy 07-18-19 18 [facility] (20 sources) metroNIDAZOLE; Translations: [METRONIDAZOLE HCL] Drug Allergy 01-10-20 05 [facility] Work Phone: [phone] (20 sources) Promethazine; Translations: [PROMETHAZINE HCL] Drug Allergy 01-10-20 05 [facility] Work Phone: [phone] (20 sources) Sulfamethoxazole / Trimethoprim; Translations: [SULFAMETHOXAZOLE-TR IMETHOPRIM] Drug Allergy 07-18-19 18 [facility] (13 sources) Tetracycline (class of antibiotic); Translations: [TETRACYCLINES] Propensity to adverse reactions 01-10-20 05 [facility] Work Phone: [phone] (13 sources) Influenza Virus Vaccines; Translations: [INFLUENZA VIRUS VACCINES] Propensity to adverse reactions 02-26-20 06 Rash, Swelling, Itching [facility] Work Phone: [phone] (20 sources) Angiotensin II receptor antagonist Drug Allergy 11-12-19 19 Angioedema [facility] Work Phone: [phone] (20 sources) Tetracycline (class of antibiotic) Propensity to adverse reactions 01-10-20 05 [facility] Work Phone: [phone] (20 sources) Influenza Virus Vaccines Propensity to adverse reactions 02-26-20 06 Rash, Swelling, Itching [facility] Work Phone: (16 sources) Clavulanate; Translations: [CLAVULANIC ACID] Drug Allergy 10-12-19 Unknown [facility] (16 sources) fluticasone; Translations: [FLUTICASONE] Drug Allergy 10-12-19 Unknown [facility] (16 sources) Pneumococcal vaccine; Translations: [PNEUMOCOCCAL VACCINE] Drug Allergy 10-12-19 Unknown [facility] (16 sources) Sulfamethoxazole; Translations: [SULFAMETHOXAZOLE] Drug Allergy 10-12-19 Unknown [facility] (16 sources) Trimethoprim; Translations: [TRIMETHOPRIM] Drug Allergy 10-12-19 Unknown [facility] Medications Current Medications Medication Drug [...] 74 mm[Hg] Kevin Fox MD Work Phone: [facility] 01-21-2023 15:03-0400 Heart rate 65 /min Kevin Fox MD Work Phone: [facility] 01-21-2023 15:03-0400 SaO2% (BldA) [Mass fraction] 97 % Kevin Fox MD Work Phone: [facility] 01-21-2023 15:03-0400 Systolic blood pressure 143 mm[Hg] Kevin Fox MD Work Phone: [facility] 11-16-2022 13:17-0400 Body weight 76.66 kg Da Ocampo MD Work Phone: [facility] 11-16-2022 13:17-0400 Diastolic blood pressure 62 mm[Hg] Da Ocampo MD Work Phone: [facility] 11-16-2022 13:17-0400 Heart rate 66 /min Da Ocampo MD Work Phone: [facility] 11-16-2022 13:17-0400 SaO2% (BldA) [Mass fraction] 97 % Da Ocampo MD Work Phone: [facility] 11-16-2022 13:17-0400 Systolic blood pressure 134 mm[Hg] Da Ocampo MD Work Phone: [facility] 07-23-2022 14:20-0400 Body temperature 97.59 [degF] Da Ocampo MD Work Phone: [facility] 07-23-2022 14:20-0400 Diastolic blood pressure 66 mm[Hg] Da Ocampo MD Work Phone: [facility] 07-23-2022 14:20-0400 Heart rate 62 /min Da Ocampo MD Work Phone: [facility] 07-23-2022 14:20-0400 SaO2% (BldA) [Mass fraction] 96 % Da Ocampo MD Work Phone: [facility] 07-23-2022 14:20-0400 Systolic blood pressure 144 mm[Hg] Da Ocampo MD Work Phone: [facility] 04-04-2022 15:49-0500 Body height 165.1 cm Da Ocampo MD Work Phone: [facility] 04-04-2022 15:49-0500 Body weight 76.2 kg Da Ocampo MD Work Phone: [facility] 04-04-2022 15:49-0500 Diastolic blood pressure 70 mm[Hg] Da Ocampo MD Work Phone: [facility] 04-04-2022 15:49-0500 Heart rate 64 /min Da Ocampo MD Work Phone: [facility] 04-04-2022 15:49-0500 SaO2% (BldA) [Mass fraction] 95 % Da Ocampo MD Work Phone: [facility] 04-04-2022 15:49-0500 Systolic blood pressure 142 mm[Hg] Da Ocampo MD Work Phone: [facility] Encounters Encounter Date Encounter Type Care Provider Facility Start: 03-29-2023 End: 03-29-2023 ambulatory DA OCAMPO Facility:[facility] Start: 02-18-2023 End: 02-18-2023 ambulatory Da Ocampo MD Work Phone: [facility] [place] Plan of Treatment Date Care Activity Detail Author Start: 07-06-2027 Urine microalbumin profile [facility] Start: 11-17-2023 Hepatitis B surface antibody level LDL Cholesterol [facility] Start: 07-24-2023 Hepatitis B surface antibody level LDL CHOLESTEROL [facility] Start: 07-23-2023 End: 01-22-2024 Echocardiography ECHO Cardiology Routine Nonrheumatic aortic valve stenosis Expected: 07/23/2023, Expires: 01/22/2024 [facility] Work Phone: Immunizations Immunization Date Immunization Notes Care Provider [facility] 07-05-2017 tetanus and diphther ia toxoids, adsorbed, preservative free, for adult use (2 Lf of tetanus toxoid and 2 Lf of diphtheria toxoid) Da Ocampo MD Work Phone: [facility] Work Phone: 07-05-2017 tetanus toxoid, redu luz marina diphtheria toxoid, and acellular pertussis vaccine, adsorbed Da Ocampo MD Work Phone: [facility] 12-10-2013 TD(adult) unspecifie d formulation Da Ocampo MD Work Phone: [facility] 10-20-2006 tetanus and diphther ia toxoids, adsorbed, preservative free, for adult use (2 Lf of tetanus toxoid and 2 Lf of diphtheria toxoid) Da Ocampo MD Work Phone: [facility] 09-30-2006 tetanus and diphther ia toxoids, adsorbed, preservative free, for adult use (2 Lf of tetanus toxoid and 2 Lf of diphtheria toxoid) Da Ocampo MD Work Phone: [facility] Work Phone: 02-22-2006 influenza virus vacc ine, unspecified formulation Da Ocampo MD Work Phone: [facility] Work Phone: 02-22-2006 pneumococcal polysaccharide vaccine, 23 valent Da Ocampo MD Work Phone: [facility] Work Phone: 02-22-2006 pneumococcal vaccine , unspecified formulation Da Ocampo MD Work Phone: [facility] 09-23-1994 tetanus and diphther ia toxoids, adsorbed, preservative free, for adult use (2 Lf of tetanus toxoid and 2 Lf of diphtheria toxoid) Da Ocampo MD Work Phone: [facility] Payers Date Payer Category Payer [employer] ( and others) [id number] 2022 Unknown FOR LIFE [id number] 2022-Present [phone] [address] [place] [address] Indemnity [id number] 2018 Unknown [employer] LIFE [id number] 2018-Present [phone] [address] [place] [address] Indemnity [id number] 2001 Medicare MEDICARE MEDICAR E A AND B [id number] 2001-Present [phone] [address] [address] [place] [address] Medicare [id number] 2001 Medicare MEDICARE MEDICAR E A AND B [id number] 2001-Present [phone] [place] [address] Medicare [id number] 2001 Medicare [id number] Social History Date Type Detail Facility Start: 07-17-2017 End: 04-04-2022 Tobacco smoking status NHIS Never smoked tobacco [facility] Start: 05-05-2021 End: 01-21-2023 Alcohol intake Current non-drinker of alcohol (finding) [facility] Start: 10-09-2018 History SDOH Social Connections Phone 5 [facility] Start: 10-09-2018 History SDOH Social Connections Living 3 [facility] Start: 11-19-2019 History SDOH Food Worry 1 [facility] Start: 11-19-2019 History SDOH Transpo rt Med 2 [facility] Start: 1935 Sex Assigned At Not on file [facility] Start: 04-02-2021 End: 07-25-2021 Exposure to SARS-CoV-2 (event) Not sure [facility] Start: 07-17-2017 End: 04-04-2022 Tobacco use and exposure Smokeless tobacco non-user [facility] Start: 10-09-2018 End: 08-07-2022 History of Social function [facility] Start: 10-09-2018 End: 08-07-2022 Social connection and isolation panel [facility] Attends Jainism Services Not on file [facility] Work Phone: Are you now , , , , never or living with a partner? [facility] (I/We) worried wheth er (my/our) food would run out before (I/we) got money to buy more. Never true [facility] Work Phone: Start: 05-04-2020 Gender identity Identifies as female gender (finding) [facility] Start: 05-04-2020 Sexual orientation Heterosexual (fin florencio) [facility] Medical Equipment Procedure Code Equipment Code Equipment Origin al Text Equipment Identifier Dates [employer] [facility] Tis 8x5 mm Ttplst - [id number] Start: 01-31-2012 Goals Date Patient Goal Desired Activity /State Personal health goal Personal health goal Clinical Notes 01-19-2008 to 03-29-2023 Da Ocampo MD - 02/18/2023 9:00 AM ESTTelephone Encounter - Caridad Wong RN - 02/12/2023 4:56 PM ESTTelephone Encounter - Lisbet Springer LPN - 02/12/2023 3:36 PM EST Note Date & Type Note Facility 03-29-2023 Note HNO ID: [id number] Author: PHONG TREJO APRN.FORGING OPERATOR Service: ? 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 States this is the [...] gram tablet Take (more content not included)... [facility] 02-18-2023 Note HNO ID: [id number] Author: Da Ocampo MD Service: ? Author [...] visit. Either the patient or their legal automobile sales representative has been informed of the [...] Take 1 tablet by mouth twice daily. SAAGZREN-DIZQWXVNV-ERHOBWXR 3.5 MG/ML-10,000 UNIT/ML-0.1% EYE DROPS Use 1 Drop in both eyes twice daily. vit C,Q-Fo-qboja-lutein-zeaxan (PRESERVISION AREDS-2) 250-90-40-1 mg Take 1 capsule [...] EPITHELIUM W/APPL C (more content not included)... [facility] 02-18-2023 History of Present illness Narrative Patient [...] visit. Either the patient or their legal automobile sales representative has been informed of the [...] Take 1 tablet by mouth twice daily. TIMQPMOP-ELIAXMJHE-JYAFLDDY 3.5 MG/ML-10,000 UNIT/ML-0.1% EYE DROPS Use 1 Drop in both eyes twice daily. vit C,I-Bl-akxdk-lutein-zeaxan (PRESERVISION AREDS-2) 250-90-40-1 mg Take 1 capsule [...] with more than 50% of the total fjap-qt-omwm time of the visit in counseling / coordination of care. Da Ocampo documented in this encounter [facility] 02-12-2023 Note HNO ID: [id number] Author: Da Ocampo MD Service: ? Author Type: Physician Type: Progress Notes Filed: 02/12/2023 3:12 PM Note Text: Attempted to call multiple times over 10 minute period. Was busy. Unable to connect via virtual. [facility] 02-12-2023 Miscellaneous Notes Patient called in. States [...] will need rescheduled. documented in this encounter [facility] 02-12-2023 History of Present illness Narrative Attempted to call multiple times over 10 minute period. Was busy. Unable to connect via virtual. documented in this encounter [facility] 02-11-2023 Miscellaneous Notes Called patient [...] thought in December. documented in this encounter [facility] 02-11-2023 Miscellaneous Notes Called patient [...] advise RADHA Espinoza documented in this encounter [facility] 02-08-2023 Miscellaneous Notes Spoke with [...] can be reviewed by Dr. Ocampo in [facility]. Patient asking when Dr. Ocampo wants her to see him, however it won't be until next year. Please call patient with reply. Thank you. documented in this encounter [facility] 02-06-2023 Miscellaneous Notes LISETTE-11/16/22 Labs-11/16/22 NOV-02/12/23 Pharm. stated Pt has no refills and needs new Rx Bette Small LPN documented in this encounter [facility] 01-21-2023 Note HNO ID: [id number] Author: Kevin Fox MD Service: ? Author Type: Physician Type: Progress Notes Filed: 01/21/2023 5:17 PM Note Text: Kevin Fox MD Interventional Cardiology [address] [id number] Chief Complaint Patient presents with: New Patient [...] Take 1 tablet by mouth twice daily. DCKPHWOD-CQYMNNHBS-GOBDRITM 3.5 MG/ML-10,000 UNIT/ML-0.1% EYE DROPS Use 1 Drop in both eyes twice daily. vit C,O-Yj-ybybv-lutein-zeaxan (PRESERVISION AREDS-2) 250-90-40-1 m (more content not included)... [facility] 01-21-2023 History of Present illness Narrative Images from the original note were not included. Kevin Fox MD Interventional Cardiology [address] [place] [address] Chief Complaint Patient presents with: New Patient [...] Take 1 tablet by mouth twice daily. GHVAZFPI-ZPOHXOKRU-PWDRRJYX 3.5 MG/ML-10,000 UNIT/ML-0.1% EYE DROPS Use 1 Drop in both eyes twice daily. vit C,K-If-sjfzl-lutein-zeaxan (PRESERVISION AREDS-2) 250-90-40-1 mg Take 1 capsule [...] correct any errors. documented in this encounter [facility] 12-12-2022 Note HNO ID: [id number] Author: Jerry Nugent MD Service: ? Author [...] of its relevant components. Jerry Nugent MD [facility] 12-07-2022 Note HNO ID: [id number] Author: Rigo Abreu, EVER Service: ? Author Type: FINISHING SUPERVISOR PLASTIC SHEETS Type: Progress Notes Filed: 12/07/2022 4:21 PM [...] Abreu, EVER December 07, 2022 4:20 PM [facility] 12-07-2022 History of Present illness Narrative 1. [...] 2022 4:20 PM documented in this encounter [facility] 12-07-2022 Miscellaneous Notes Patient scheduled [...] This patient just underwent corneal surgery at [place] on 12/04/2022. I pasted below the PSR's not from her phone encounter with the patient. I am not seeing any documentation of him using a BCL. Would you be able to verify this for me before I contact the patient. Thank you, Joauqina Olivier 42 minutes ago (2:58 PM) BILLY [...] week as well. documented in this encounter [facility] documented as of this encounter (statuses as of 12/07/2022) [facility]09-12-2023 History of Past illness Narrative* [...] of this encounter (statuses as of 12/08/2022) [facility] History of Past illness Narrative* [...] of this encounter (statuses as of 01/22/2023) [facility] History of Past illness Narrative* [...] of this encounter (statuses as of 02/06/2023) [facility] History of Past illness Narrative* [...] of this encounter (statuses as of 02/08/2023) [facility] History of Past illness Narrative* [...] of this encounter (statuses as of 02/11/2023) [facility] History of Past illness Narrative* [...] of this encounter (statuses as of 02/13/2023) [facility] History of Past illness Narrative* [...] of this encounter (statuses as of 02/13/2023) [facility] History of Past illness Narrative* [...] of this encounter (statuses as of 02/18/2023) [facility]08-25-2023 NoteHNO ID: [id number] Author: Da Ocampo MD Service: ? Author [...] medication. Looks like from scanned document to [employer]. Is for OAB Sore on bottom is [...] Take 1 tablet by mouth twice daily. HXMEFMJX-GRQOIADAD-OLMBPXBF 3.5 MG/ML-10,000 UNIT/ML-0.1% EYE DROPS Use 1 Drop in both eyes twice daily. vit C,P-Nh-lsvej-lutein-zeaxan (PRESERVISION AREDS-2) 250-90-40-1 mg Take 1 capsule [...] Hyperlipidemia Other and un (more content not included)...[facility] History of Present illness Narrative* Da Ocampo MD - 11/16/2022 1:13 PM EDT Patient presents with: Pre-Op Exam HPI: Patient presents today for office visit for preop. Scheduled for eye surgery on 12/04. Having:REMOVE CORNEAL EPITHELIUM W/ APPLICATION OF CHELATION by Dr. Nugent. Is on a new medication from urology and not sure of name of medication. Looks like from scanned document to [employer]. Is for OAB Sore on bottom is [...] Take 1 tablet by mouth twice daily. EKAGGAYQ-UXGVWNHJA-VTNLVUQA 3.5 MG/ML-10,000 UNIT/ML-0.1% EYE DROPS Use 1 Drop in both eyes twice daily. vit C,L-St-xfjmh-lutein-zeaxan (PRESERVISION AREDS-2) 250-90-40-1 mg Take 1 capsule [...] weeks Da Ocampo MD [facility] Miscellaneous Notes* Telephone Encounter - Ne Kelsey - 10/30/2022 1:08 PM EDT Patient has been scheduled for 12/04/[address] Nugent in [place] * Telephone Encounter - Aleja Castanon RN - 10/19/2022 2:25 PM EDT Patient is inquiring about setting up surgery in [place]. Aleja Castanon RN October 19, 2022 2:26 PM [facility] Miscellaneous Notes* Telephone Encounter - Ne Kelsey - 10/24/2022 1:47 PM EDT Called patient to schedule chelation left eye with Dr. Jerry Nugent at the [place] location. Patient states she needs to have it done, but she's not able to see to write anything down, and asked me to call her daughter, Josey to schedule it. I did offer her 11/21/22 or 12/04 22. Patient states she prefers 12/04/22, but to check with her daughter about the dates. Per Epic notes, the cell phone number of [phone] is for Josey, so I called this number but got a voicemail for Zo. I left a message for Josey to call me back and schedule the surgery on behalf of the patient. (Per Patient contact numbers, Josey's phone number is actually [phone]. I called it and left a voicemail explaining that the patient asked me to contact her to schedule hersurgery and that I also left a voicemail for Zo. Requested a call back from either one to assist with patient scheduling. [facility] Miscellaneous Notes* Telephone Encounter - [...] know the name of the medication. [employer] [facility]by. 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 Also wants to know if she has to taking her levothyroxine alone or can she take other meds with it at the same time? Please advise at [phone] documented [facility]-2023 NoteHNO ID: [id number] Author: Jerry Nugent MD Service: ? Author [...] Jerry Nugent MD October 17, 2022 10:[address] [facility]07-19-2023 Miscellaneous Notes* Telephone Encounter - Weathers Katharine [...] the pharmacy. Katharine Weathers documented in [facility]-2023 NoteHNO ID: [id number] Author: Da Ocampo MD Service: ? Author Type: Physician Type: Progress Notes Filed: 07/23/2022 2:52 PM Note Text: Patient presents with: ER F/U HPI: Patient presents today for office visit for ER F/U. Went to [facility] ER on 07/18/22 due to generalized weakness. Dx with UTI and given Macrobid. Abx completed. Her work up was otherwise ok. Went back to [facility] on 07/22/22 due to not feeling [...] Take 1 tablet by mouth twice daily. GOVHUVGG-KMTCBEJEB-HHWTTPOZ 3.5 MG/ML-10,000 UNIT/ML-0.1% EYE DROPS Use 1 Drop in both eyes twice daily. vit C,Q-Wz-binli-lutein-zeaxan (PRESERVISION AREDS-2) 250-90-40-1 mg Take 1 capsule [...] 04/04/2022 76.2 kg (168 (more content not included)...[facility] 07-23-2022 History of Present illness Narrative* Da Ocampo MD - 07/23/2022 2:20 PM EDT Patient presents with: ER F/U HPI: Patient presents today for office visit for ER F/U. Went to [facility] ER on 07/18/22 due to generalized weakness. Dx with UTI and given Macrobid. Abx completed. Her work up was otherwise ok. Went back to [facility] on 07/22/22 due to not feeling [...] Take 1 tablet by mouth twice daily. GSFLHSYU-MQOEKQVDR-GQMJLYVD 3.5 MG/ML-10,000 UNIT/ML-0.1% EYE DROPS Use 1 Drop in both eyes twice daily. vit C,T-Lg-uavco-lutein-zeaxan (PRESERVISION AREDS-2) 250-90-40-1 mg Take 1 capsule [...] BLD Da Ocampo MD [facility] Miscellaneous Notes* Telephone Encounter - [...] you. Mary Jordan RN documented [facility] Miscellaneous Notes* Telephone Encounter - [...] notify patient. Macarena Reyes documented in [facility]01-[facility]23 Miscellaneous Notes* Telephone Encounter - [...] advise, Shawna Looney RN documented in [facility]01-[facility]23 Miscellaneous Notes* Telephone Encounter - [...] patient. Tonya Alarcon Pss documented in this [facility]01-11-[facility] History of Present illness Narrative* [...] Take 1 tablet by mouth twice daily. NOAQBJVN-VNDEKTAFQ-HUQMACVV 3.5 MG/ML-10,000 UNIT/ML-0.1% EYE DROPS Use 1 Drop in both eyes twice daily. vit C,C-Kj-tdvqx-lutein-zeaxan (PRESERVISION AREDS-2) 250-90-40-1 mg Take 1 capsule [...] TABLET Da Ocampo MD documented in this encounterE[facility]01-[facility] History of Past illness Narrative* [...] of this encounter (statuses as of 04/05/2022) [facility] of Past illness Narrative* [...] of this encounter (statuses as of 04/09/2022) [facility] of Past illness Narrative* [...] of this encounter (statuses as of 04/09/2022) [facility] of Past illness Narrative* [...] of this encounter (statuses as of 04/19/2022) [facility] of Past illness Narrative* [...] of this encounter (statuses as of 05/31/2022) [facility] of Past illness Narrative* [...] of this encounter (statuses as of 07/24/2022) [facility] of Past illness Narrative* [...] of this encounter (statuses as of 10/11/2022) [facility] of Past illness Narrative* [...] of this encounter (statuses as of 10/24/2022) [facility] of Past illness Narrative* [...] of this encounter (statuses as of 10/30/2022) [facility] History of Past illness Narrative* [...] of this encounter (statuses as of 11/16/2022) [facility]01-06-[facility] Miscellaneous Notes* Telephone Encounter - [...] - 03/30/2022 11:18 AM EST Cecy with [facility] nursing calling for clarification on Potassium and Preservation. Pt has instructed her she is not taking these. Please advise Cecy. Althea Herrera LPN documented in this encounterE[facility]01-[facility]-2023 Miscellaneous Notes* Telephone Encounter - Da Ocampo MD - 03/29/2022 4:55 PM EST noted * Telephone Encounter - Althea Herrera LPN - 03/29/2022 4:09 PM EST Joaquina with [facility], PT calling with plan of care. They will see pt 1 time a week for 1 week, then2 times a week for 4 weeks for strengthening, gait, transfers and fall prevention. No call back needed Althea Herrera LPN documented in this encounterE[facility]23 Miscellaneous Notes* Telephone Encounter - Yas Gamble Ma - 03/28/2022 11:49 AM EST Order faxed to [facility], verbal order given to Sandy * Telephone Encounter - Melvina Thomas RN - 03/28/2022 11:15 AM EST Sandy from [facility] called in and reports Pt was admitted to [facility] on 03/23/22 for a small bowel [...] is a confidential line. documented in this encounterElyria [facility] Hospital07-27-2022 Miscellaneous Notes* Telephone Encounter - [...] you. Tricia Posada RN documented in this encounterElyria [facility] Hospital07-19-2022 Miscellaneous Notes* Telephone Encounter - Joaquina Woo Pss - 10/10/2021 4:39 PM EDT Patient needs her levothyroxine sent to the [facility] in [place]. no longer covers through [facility]. * Telephone Encounter - Joaquina Woo Pss - 10/10/2021 4:38 PM EDT Pharmacy verified in [facility] Patient has been identified by name and [...] advise. Joaquina Woo Pss documented in this encounterElyria [facility] Hospital06-10-2022 Miscellaneous Notes* Telephone Encounter - [...] to the pharmacy. Please call patient at: [phone] Macarena Reyes documented in this encounterElyria [facility] Hospital06-10-2022 Miscellaneous Notes* Telephone Encounter - [...] notify patient. Macarena Reyes documented in this encounterElyria [facility] Hospital05-20-2022 Miscellaneous Notes* Telephone Encounter - Tonya Santos - 08/11/2021 10:51 AM EDT 2nd attempt: [id number] Thank you, Tonya Santos * Telephone Encounter - Jennifer Gomez Pss - 08/09/2021 1:43 PM EDT 1st attempt. Unable to leave message. No VM. Patient to schedule Card consult. Ram[facility]rez is end of December. Please offer [place] or [facility] ([place]) if patient requesting sooner appt. * Telephone [...] Recommend to see cardiology documented in this encounterElyria [facility] Hospital05-12-2022 Miscellaneous Notes* Telephone Encounter - Yas Gamble Ma - 08/03/2021 1:07 PM EDT Patient was made aware of the results. Patient verbalizes understanding. Yas Gamble Ma * Telephone Encounter - Da Ocampo MD - 08/03/2021 11:20 AM EDT Labs stable. Slightly anemic, could still be recovering from surgery but recheck labs to be on [facility] in one week documented in this encounterElyria [facility] Hospital05-03-2022 Miscellaneous Notes* Telephone Encounter - [...] Antonio. Please advise pt. documented in this encounterElyria [facility] Hospital04-26-2022 Miscellaneous Notes* Telephone Encounter - [...] do. Althea Herrera LPN documented in this encounterElyria [facility] Hospital04-18-2022 History of Present illness Narrative* [...] 10, 2021 4:24 PM documented in this encounterElyria [facility] Hospital04-17-2022 Miscellaneous Notes* Telephone Encounter - [...] AM EDT ----- Message from Rachna Garcia APRN.FORGING OPERATOR sent at 07/06/2021 8:19 PM EDT ----- Please advise patient the radiologist sees a possible old fracture at the base of the distal fibula. This is not likely causing her pain, however I would like her to follow up with podiatry so he canevaluate the xrays. Referral entered. Rachna Garcia APRN.CNP documented in this encounterElyria [facility] Hospital04-14-2022 Miscellaneous Notes* Telephone Encounter - [...] notify patient. Ciera Reeves documented in this encounterElyria Memorial Hospital04-13-2022 Miscellaneous Notes* Telephone Encounter - [...] you. Melvina Thomas RN documented in this encounterElyria [facility] Hospital10-27-2008 History of Past illness Narrative* Problem Noted Date Resolved Date Sprain and strain of unspeci fied site of shoulder and upper arm 01/19/2008 02/11/2020 Hypothyroidism, acquired 09/11/2005 020 Abdominal pain, left lower quadrant 10/22/2017 documented as of this encounter (statuses as of 07/05/2021) [facility] of [facility] illness Narrative* Problem Noted Date Resolved Date Sprain and strain of unspeci fied site of shoulder and upper arm 01/19/2008 02/11/2020 Hypothyroidism, acquired 09/11/2005 020 Abdominal pain, left lower quadrant 10/22/2017 documented as of this encounter (statuses as of 07/05/2021) [facility] of [facility] illness Narrative* Problem Noted Date Resolved Date Sprain and strain of unspeci fied site of shoulder and upper arm 01/19/2008 02/11/2020 Hypothyroidism, acquired 09/11/2005 020 Abdominal pain, left lower quadrant 10/22/2017 documented as of this encounter (statuses as of 07/06/2021) [facility] Narrative* Problem Noted Date Resolved Date Sprain and strain of unspeci fied site of shoulder and upper arm 01/19/2008 02/11/2020 Hypothyroidism, acquired 09/11/2005 020 Abdominal pain, left lower quadrant 10/22/2017 documented as of this encounter (statuses as of 07/09/2021) [facility] Narrative* Problem Noted Date Resolved Date Sprain and strain of unspeci fied site of shoulder and upper arm 01/19/2008 02/11/2020 Hypothyroidism, acquired 09/11/2005 020 Abdominal pain, left lower quadrant 10/22/2017 documented as of this encounter (statuses as of 07/10/2021) [facility] Narrative* Problem Noted Date Resolved Date Sprain and strain of unspeci fied site of shoulder and upper arm 01/19/2008 02/11/2020 Hypothyroidism, acquired 09/11/2005 020 Abdominal pain, left lower quadrant 10/22/2017 documented as of this encounter (statuses as of 07/18/2021) [facility] Narrative* Problem Noted Date Resolved Date Sprain and strain of unspeci fied site of shoulder and upper arm 01/19/2008 02/11/2020 Hypothyroidism, acquired 09/11/2005 020 Abdominal pain, left lower quadrant 10/22/2017 documented as of this encounter (statuses as of 07/25/2021) [facility] Narrative* Problem Noted Date Resolved Date Sprain and strain of unspeci fied site of shoulder and upper arm 01/19/2008 02/11/2020 Hypothyroidism, acquired 09/11/2005 020 Abdominal pain, left lower quadrant 10/22/2017 documented as of this encounter (statuses as of 08/03/2021) [facility] Narrative* Problem Noted Date Resolved Date Sprain and strain of unspeci fied site of shoulder and upper arm 01/19/2008 02/11/2020 Hypothyroidism, acquired 09/11/2005 020 Abdominal pain, left lower quadrant 10/22/2017 documented as of this encounter (statuses as of 08/11/2021) [facility] Narrative* Problem Noted Date Resolved Date Sprain and strain of unspeci fied site of shoulder and upper arm 01/19/2008 02/11/2020 Hypothyroidism, acquired 09/11/2005 020 Abdominal pain, left lower quadrant 10/22/2017 documented as of this encounter (statuses as of 09/01/2021) [facility] Narrative* Problem Noted Date Resolved Date Sprain and strain of unspeci fied site of shoulder and upper arm 01/19/2008 02/11/2020 Hypothyroidism, acquired 09/11/2005 020 Abdominal pain, left lower quadrant 10/22/2017 documented as of this encounter (statuses as of 09/01/2021) [facility] Narrative* Problem Noted Date Resolved Date Sprain and strain of unspeci fied site of shoulder and upper arm 01/19/2008 02/11/2020 Hypothyroidism, acquired 09/11/2005 020 Abdominal pain, left lower quadrant 10/22/2017 documented as of this encounter (statuses as of 10/10/2021) [facility] Narrative* Problem Noted Date Resolved Date Sprain and strain of unspeci fied site of shoulder and upper arm 01/19/2008 02/11/2020 Hypothyroidism, acquired 09/11/2005 020 Abdominal pain, left lower quadrant 10/22/2017 documented as of this encounter (statuses as of 10/18/2021) [facility] Narrative* Problem Noted Date Resolved Date Sprain and strain of unspeci fied site of shoulder and upper arm 01/19/2008 02/11/2020 Hypothyroidism, acquired 09/11/2005 020 Abdominal pain, left lower quadrant 10/22/2017 documented as of this encounter (statuses as of 03/30/2022) [facility] Narrative* Problem Noted Date Resolved Date Sprain and strain of unspeci fied site of shoulder and upper arm 01/19/2008 02/11/2020 Hypothyroidism, acquired 09/11/2005 020 Abdominal pain, left lower quadrant 10/22/2017 documented as of this encounter (statuses as of 03/30/2022) [facility] Narrative* Problem Noted Date Resolved Date Sprain and strain of unspeci fied site of shoulder and upper arm 01/19/2008 02/11/2020 Hypothyroidism, acquired 09/11/2005 020 Abdominal pain, left lower quadrant 10/22/2017 documented as of this encounter (statuses as of 03/31/2022) [facility] note* Diagnosis Hypothyroidism, acquired Unspecified hypothyroidism Edema, unspecified type [facility] Diagnosis Anemia, unspecified type- Primary [facility]* Diagnosis Aortic valve stenosis, etiology of cardiac valve disease unspecified- Primary documented in this encounter [facility] note* Diagnosis Recurrent major depressive disorder, in remission (HCC) documented in this encounter [facility]* Diagnosis Hypothyroidism, acquired Unspecified hypothyroidism documented in this encounter [facility] note* Diagnosis Edema, unspecified type documented in this encounter [facility] note* Diagnosis SBO (small bowel obstruction) ([facility])- Primary Unspecified intestinal obstruction [facility] encounter [facility]* Diagnosis Essential hypertension, benign- Primary Mixed [...] dementia severity, unspecified dementia type ([facility]) Edema, unspecified type Localized swelling, mass and lump, left lower limb Cellulitis of skin Cellulitis and abscess of unspecified site Hypothyroidism, acquired Unspecified hypothyroidism [facility] Diagnosis Recurrent major depressive disorder, in remission (HCC) documented in this encounter [facility] note* Diagnosis Edema, unspecified type documented in this encounter [facility] note* Diagnosis Recurrent UTI (urinary tract infection)- Primary Urinary tract infection, site not specified Nonrheumatic aortic valve stenosis Aortic valve disorders Essential hypertension, benign Mixed hyperlipidemia Controlled type 2 diabetes mellitus without complication, without long-term current use of insulin (HCC) Hypothyroidism, unspecified type documented in this encounter [facility] note* Diagnosis Decreased vision- Primary Unspecified visual [...] Band keratopathy, left documented in this encounter [facility] note* Diagnosis Band keratopathy, 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) documented in this encounter [facility] note* Diagnosis Nonrheumatic aortic valve stenosis- Primary Aortic valve disorders Aortic valve disorder Aortic valve disorders Essential hypertension, benign documented in this encounter [facility] note* Diagnosis Hypothyroidism, acquired Unspecified hypothyroidism documented in this encounter [facility] note* Diagnosis NO SHOW- Primary documented in this encounter [facility] note* Diagnosis Anxiety- Primary Anxiety state, unspecified documented in this encounter [facility] for referral (narrative)* Outpatient Procedure (Routine) - Authorized Specialty Diagnoses / Procedures Referred By Nell t Referred To [facility] Diagnoses Nonrheumatic aortic valve stenosis Procedures ECHO ECHO TTC R-T 2D W/WOM-MODE COMPL SPEC&COLR D Da Ocampo MD [address] [place] [address] [facility] [place] [address] [place] [address] Referral ID Status Reason Start Date Expiration Date Visits Requested Visits Authorized [id number] Authorized Auto-Generat ed Referral 07/23/2022 07/23/2023 1 1 * Consult, Test, Treat (Routine) - Authorized Specialty Diagnoses / Procedures Referred By Contac t Referred To Contact Urology Diagnoses Recurrent UTI (urinary tract infection) Procedures CONSULT TO UROLOGY OFFICE/OUTPATIENT NEW HIGH MDM 60-74 MINUTES Da Ocampo MD [address] [place] [address] Referral ID Status Reason Start Date Expiration Date Visits Requested Visits Authorized [id number] Authorized PCP Requested Referral 07/23/2022 07/23/2023 1 1 [facility] for referral (narrative)* Outpatient Procedure (Routine) - Pending Review Specialty Diagnoses / Procedures Referred By Contac t Referred To Contact [facility] Diagnoses Nonrheumatic aortic valve stenosis Procedures ECHO ECHO TTHRC R-T 2D W/WOM-MODE COMPL SPEC&COLR D Kevin Fox MD [address] [place] [address] [facility] [place] [address] [place] [address] Referral ID Status Reason Start Date Expiration Date Visits Requested Visits Authorized [id number] Pending Review Auto-Generat ed Referral 07/23/2023 01/21/2024 1 1 * Outpatient Procedure (Routine) - Pending Review Specialty Diagnoses / Procedures Referred By Contac t Referred To Contact [facility] [place] Diagnoses Screening for ischemic heart disease Procedures ECG COMPLETE ECG ROUTINE ECG W/LEAST 12 LDS W/I&R Kevin Fox MD [address] [place] [address] [facility] [place] [address] [place] [id number] Referral ID Status Reason Start Date Expiration Date Visits Requested Visits Authorized [id number] Pending Review Auto-Generat ed Referral 3 01/14/2024 1 1 [facility] Reason for Referral Specialty Diagnoses / Procedures Referred By Contac t Referred To Contact Cardiology Diagnoses Aortic valve stenosis, etiology of cardiac valve disease unspecified Procedures CONSULT TO CARDIOLOGY OFFICE/OUTPATIENT [facility] 60-74 MINUTES Da Ocampo MD [address] [place] [address] Referral ID Status Reason Start Date Expiration Date Visits Requested Visits Authorized [id number] Authorized PCP Requested Referral 08/08/2021 08/08/2022 1 1 Specialty Diagnoses / Procedures Referred By Contac t Referred To Contact [facility] Diagnoses SBO (small bowel obstruction) ([facility]) Procedures CONSULT TO PHYSICAL THERAPY PHYSICAL THERAPY EVALUATION HIGH COMPLEX 45 MINS Da Ocampo MD [address] [place] [address] [facility] [place] [address] [place] [address] Referral ID Status Reason Start Date Expiration Date Visits Requested Visits Authorized [id number] Authorized PCP Requested Referral Auto-Generate d Referral 03/28/2022 03/28/2023 99 99 Specialty Diagnoses / Procedures Referred By Contac t Referred To Contact Cardiology Diagnoses Nonrheumatic aortic valve stenosis Procedures CONSULT TO CARDIOLOGY OFFICE/OUTPATIENT [facility] 60-74 MINUTES Da Ocampo MD [address] [place] [address] Referral ID Status Reason Start Date Expiration Date Visits Requested Visits Authorized [id number] Authorized PCP Requested Referral 04/04/2022 04/04/2023 1 1 Specialty Diagnoses / Procedures Referred By Contac t Ref[facility] Diagnoses Edema, unspecified type Localized swelling, mass and lump, left lower limb Procedures US LEG VEIN DVT UNL VAS LAB DUP-SCAN XTR VEINS UNILATERAL/LIMITED STUDY Da Ocampo MD [address] [place] [address] [facility] [place] [address] [place] [address] Referral ID Status Reason Start Date Expiration Date Visits Requested Visits Authorized [id number] Authorized Auto-Generat ed Referral 04/04/2022 04/04/2023 1 [...] or prosecute any alcohol or drug abuse patient.[facility] HospitalIn the event this information is protected by the Federal Confidentiality of Alcohol and Drug Abuse Patient Records regulations: The Federal rules restrict any use of the information to criminally investigate or prosecute any alcohol or drug abuse patient.[facility] HospitalIn the event this information is protected by the Federal Confidentiality of Alcohol and Drug Abuse Patient Records regulations: The Federal rules restrict any use of the information to criminally investigate or prosecute any alcohol or drug abuse patient.[facility] HospitalIn the event this information is protected by the Federal Confidentiality of Alcohol and Drug Abuse Patient Records regulations: The Federal rules restrict any use of the information to criminally investigate or prosecute any alcohol or drug abuse patient.[facility] HospitalIn the event this information is protected by the Federal Confidentiality of Alcohol and Drug Abuse Patient Records regulations: The Federal rules restrict any use of the information to criminally investigate or prosecute any alcohol or drug abuse patient.[facility] HospitalIn the event this information is protected by the Federal Confidentiality of Alcohol and Drug Abuse Patient Records regulations: The Federal rules restrict any use of the information to criminally investigate or prosecute any alcohol or drug abuse patient.[facility] HospitalIn the event this information is protected by the Federal Confidentiality of Alcohol and Drug Abuse Patient Records regulations: The Federal rules restrict any use of the information to criminally investigate or prosecute any alcohol or drug abuse patient.[facility] HospitalIn the event this information is protected by the Federal Confidentiality of Alcohol and Drug Abuse Patient Records regulations: The Federal rules restrict any use of the information to criminally investigate or prosecute any alcohol or drug abuse patient.[facility] HospitalIn the event this information is protected by the Federal Confidentiality of Alcohol and Drug Abuse Patient Records regulations: The Federal rules restrict any use of the information to criminally investigate or prosecute any alcohol or drug abuse patient.[facility] HospitalIn the event this information is protected by the Federal Confidentiality of Alcohol and Drug Abuse Patient Records regulations: The Federal rules restrict any use of the information to criminally investigate or prosecute any alcohol or drug abuse patient.[facility] HospitalIn the event this information is protected by the Federal Confidentiality of Alcohol and Drug Abuse Patient Records regulations: The Federal rules restrict any use of the information to criminally investigate or prosecute any alcohol or drug abuse patient.[facility] HospitalIn the event this information is protected by the Federal Confidentiality of Alcohol and Drug Abuse Patient Records regulations: The Federal rules restrict any use of the information to criminally investigate or prosecute any alcohol or drug abuse patient.[facility] HospitalIn the event this information is protected by the Federal Confidentiality of Alcohol and Drug Abuse Patient Records regulations: The Federal rules restrict any use of the information to criminally investigate or prosecute any alcohol or drug abuse patient.[facility] HospitalIn the event this information is protected by the Federal Confidentiality of Alcohol and Drug Abuse Patient Records regulations: The Federal rules restrict any use of the information to criminally investigate or prosecute any alcohol or drug abuse patient.[facility] HospitalIn the event this information is protected by the Federal Confidentiality of Alcohol and Drug Abuse Patient Records regulations: The Federal rules restrict any use of the information to criminally investigate or prosecute any alcohol or drug abuse patient.[facility] HospitalIn the event this information is protected by the Federal Confidentiality of Alcohol and Drug Abuse Patient Records regulations: The Federal rules restrict any use of the information to criminally investigate or prosecute any alcohol or drug abuse patient.[facility] HospitalIn the event this information is protected by the Federal Confidentiality of Alcohol and Drug Abuse Patient Records regulations: The Federal rules restrict any use of the information to criminally investigate or prosecute any alcohol or drug abuse patient.[facility] HospitalIn the event this information is protected by the Federal Confidentiality of Alcohol and Drug Abuse Patient Records regulations: The Federal rules restrict any use of the information to criminally investigate or prosecute any alcohol or drug abuse patient.[facility] HospitalIn the event this information is protected by the Federal Confidentiality of Alcohol and Drug Abuse Patient Records regulations: The Federal rules restrict any use of the information to criminally investigate or prosecute any alcohol or drug abuse patient.[facility] HospitalIn the event this information is protected by the Federal Confidentiality of Alcohol and Drug Abuse Patient Records regulations: The Federal rules restrict any use of the information to criminally investigate or prosecute any alcohol or drug abuse patient.[facility] HospitalIn the event this information is protected by the Federal Confidentiality of Alcohol and Drug Abuse Patient Records regulations: The Federal rules restrict any use of the information to criminally investigate or prosecute any alcohol or drug abuse patient.[facility] HospitalIn the event this information is protected by the Federal Confidentiality of Alcohol and Drug Abuse Patient Records regulations: The Federal rules restrict any use of the information to criminally investigate or prosecute any alcohol or drug abuse patient.[facility] HospitalIn the event this information is protected by the Federal Confidentiality of Alcohol and Drug Abuse Patient Records regulations: The Federal rules restrict any use of the information to criminally investigate or prosecute any alcohol or drug abuse patient.[facility] HospitalIn the event this information is protected by the Federal Confidentiality of Alcohol and Drug Abuse Patient Records regulations: The Federal rules restrict any use of the information to criminally investigate or prosecute any alcohol or drug abuse patient.[facility] HospitalIn the event this information is protected by the Federal Confidentiality of Alcohol and Drug Abuse Patient Records regulations: The Federal rules restrict any use of the information to criminally investigate or prosecute any alcohol or drug abuse patient.[facility] HospitalIn the event this information is protected by the Federal Confidentiality of Alcohol and Drug Abuse Patient Records regulations: The Federal rules restrict any use of the information to criminally investigate or prosecute any alcohol or drug abuse patient.[facility] HospitalIn the event this information is protected by the Federal Confidentiality of Alcohol and Drug Abuse Patient Records regulations: The Federal rules restrict any use of the information to criminally investigate or prosecute any alcohol or drug abuse patient.[facility] HospitalIn the event this information is protected by the Federal Confidentiality of Alcohol and Drug Abuse Patient Records regulations: The Federal rules restrict any use of the information to criminally investigate or prosecute any alcohol or drug abuse patient.[facility] HospitalIn the event this information is protected by the Federal Confidentiality of Alcohol and Drug Abuse Patient Records regulations: The Federal rules restrict any use of the information to criminally investigate or prosecute any alcohol or drug abuse patient.[facility] HospitalIn the event this information is [...] or prosecute any alcohol or drug abuse patient.[facility] HospitalIn the event this information is protected by the Federal Confidentiality of Alcohol and Drug Abuse Patient Records regulations: The Federal rules restrict any use of the information to criminally investigate or prosecute any alcohol or drug abuse patient.[facility] HospitalIn the event this information is protected by the Federal Confidentiality of Alcohol and Drug Abuse Patient Records regulations: The Federal rules restrict any use of the information to criminally investigate or prosecute any alcohol or drug abuse patient.[facility] HospitalIn the event this information is protected by the Federal Confidentiality of Alcohol and Drug Abuse Patient Records regulations: The Federal rules restrict any use of the information to criminally investigate or prosecute any alcohol or drug abuse patient.[facility] HospitalIn the event this information is protected by the Federal Confidentiality of Alcohol and Drug Abuse Patient Records regulations: The Federal rules restrict any use of the information to criminally investigate or prosecute any alcohol or drug abuse patient.[facility] HospitalIn the event this information is protected by the Federal Confidentiality of Alcohol and Drug Abuse Patient Records regulations: The Federal rules restrict any use of the information to criminally investigate or prosecute any alcohol or drug abuse patient.[facility] HospitalIn the event this information is protected by the Federal Confidentiality of Alcohol and Drug Abuse Patient Records regulations: The Federal rules restrict any use of the information to criminally investigate or prosecute any alcohol or drug abuse patient.[facility] Reason for Visit (unrecogniz ed [...] HH, PT plan of care Reason Comments [facility] nursing clarification Reason Comments 6 Month Exam [...] MDM 60-74 MINUTES Da Ocampo MD [address] [place] [address] Referral ID Status Reason Start Date Expiration Date V isits Requested Visits Authorized [id number] Closed PCP Requested Referral 04/04/2022 04/04/2023 1 1 Reason Onset Date Comments Refill Request 02/06/2023 Reason Comments Patient Question Patient Update Reason Comments Acute Visit Care Teams (unrecognized sec tion and content) Sql Database Programmer Relationship Specialty Start Date End Date Da Ocampo MD [address] [place], [place] [address] PCP - General Family Practice 07/17/17 Nahed Batista [address] [facility] [address] [place] [address] Consulting Urology 03/17/19 [facility] 10/09/18 Sql Database Programmer Relationship Specialty Start Date End Date Da Ocampo MD [address] [place], [place] [address] PCP - General Family Practice 07/17/17 Nahed Batista [address] [facility] [address] [place] [address] Consulting Urology 03/17/19 [facility] 10/09/18 Sql Database Programmer Relationship Specialty Start Date End Date Da Ocampo MD [address] [facility], [place] [address] PCP - General Family Practice 07/17/17 Nahed Batista [address] [facility] [address] [place] [address] Consulting Urology 03/17/19 [facility] 10/09/18 Sql Database Programmer Relationship Specialty Start Date End Date Da Ocampo MD [address] [facility], [place] [address] PCP - General Family Practice 07/17/17 Nahed Batista [address] [facility] [address] [place] [address] Consulting Urology 03/17/19 [facility] 10/09/18 Sql Database Programmer Relationship Specialty Start Date End Date Da Ocampo MD [address] [facility] [place] [address] PCP - General Family Practice 07/17/17 Nahed Batista [address] [facility] [address] [place] [address] Consulting Urology 03/17/19 [facility] 10/09/18 Sql Database Programmer Relationship Specialty Start Date End Date Da Ocampo MD [address] [facility], [place] [address] PCP - General Family Practice 07/17/17 Nahed Batista [address] [facility] [address] [place] [address] Consulting Urology 03/17/19 [facility] 10/09/18 Sql Database Programmer Relationship Specialty Start Date End Date Da Ocampo MD [address] [place], [place] [address] PCP - General Family Practice 07/17/17 Nahed Batista [address] [facility] [address] [place] [address] Consulting Urology 03/17/19 [facility] 10/09/18 Sql Database Programmer Relationship Specialty Start Date End Date Da Ocampo MD [address] [place], [place] [address] PCP - General Family Practice 07/17/17 Nahed Batista [address] [facility] [address] [place] [address] Consulting Urology 03/17/19 [facility] 10/09/18 Sql Database Programmer Relationship Specialty Start Date End Date Da Ocmapo MD [address] [place], [place] [address] PCP - General Family Medicine 07/17/17 Nahed Batista [address] [facility] [address] [place] [address] Consulting Urology 03/17/19 [facility] 10/09/18 Sql Database Programmer Relationship Specialty Start Date End Date Da Ocampo MD [address] [facility], [place] [address] PCP - General Family Medicine 07/17/17 Nahed Batista [address] [place] [address] Consulting Urology 03/17/19 [facility] 10/09/18 Sql Database Programmer Relationship Specialty Start Date End Date Da Ocampo MD [address] [place], [place] [address]40[address] PCP - General Family Medicine 07/17/17 Nahed Batista [address] [facility] [address] [place], [place] [address] Consulting Urology 03/17/19 [facility] 10/09/18 Sql Database Programmer Relationship Specialty Start Date End Date Da Ocampo MD [address] [place], [place] [address] PCP - General Family Medicine 07/17/17 Nahed Batista [address] [address] Consulting Urology 03/17/19 [facility] 10/09/18 Sql Database Programmer Relationship Specialty Start Date End Date Da Ocampo MD [address] [place], [place] [id number] PCP - General Family Medicine 07/17/17 Nahed Batista [address] [address] Consulting Urology 03/17/19 [facility] 10/09/18 Sql Database Programmer Relationship Specialty Start Date End Date Da Ocampo MD [address] [place], [place] [address] PCP - General Family Medicine 07/17/17 Nahed Batista [address] [address] Consulting Urology 03/17/19 [facility] 10/09/18 Sql Database Programmer Relationship Specialty Start Date End Date Da Ocampo MD [address] [facility], [place] [address] PCP - General Family Medicine 07/17/17 Nahed Batista [address] [place] [address] Consulting Urology 03/17/19 [facility] 10/09/18 Sql Database Programmer Relationship Specialty Start Date End Date Da Ocampo MD [address] [place], [place] [id number] PCP - General Family Medicine 07/17/17 Nahed Batista [address] [address] Consulting Urology 03/17/19 [facility] 10/09/18 Sql Database Programmer Relationship Specialty Start Date End Date Da Ocampo MD [address] [place], [place] [id number] PCP - General Family Medicine 07/17/17 Nahed Batista [address] [place] [address] Consulting Urology 03/17/19 [facility] 10/09/18 Sql Database Programmer Relationship Specialty Start Date End Date Da Ocampo MD [address] [place], [place] [id number] PCP - General Family Medicine 07/17/17 Nahed Batista [address] [facility] [address] [place] [address] Consulting Urology 03/17/19 [facility] 10/09/18 Sql Database Programmer Relationship Specialty Start Date End Date Da Ocampo MD [address] [facility] [place] [address] PCP - General Family Medicine 07/17/17 Nahed Batista [address] [facility] [facility] [address] [place] [address] Consulting Urology 03/17/19 [facility] 10/09/18 Sql Database Programmer Relationship Specialty Start Date End Date Da Ocampo MD [address] [facility] [place] [address] PCP - General Family Medicine 07/17/17 Nahed Batista [address] [facility] [place] [address] [place] [address] Consulting Urology 03/17/19 [facility] 10/09/18 Sql Database Programmer Relationship Specialty Start Date End Date Da Ocampo MD [address] [facility] [place] [address] PCP - General Family Medicine 07/17/17 Nahed Batista [address] [facility] [place] [address] [place] [address] Consulting Urology 03/17/19 [facility] 10/09/18 Sql Database Programmer Relationship Specialty Start Date End Date Da Ocampo MD [address] [facility] [place] [address] PCP - General Family Medicine 07/17/17 Nahed Batista [address] [facility] [address] [place] [address] Consulting Urology 03/17/19 [facility] 10/09/18 Sql Database Programmer Relationship Specialty Start Date End Date Da Ocampo MD [address] [facility], [place] [address] PCP - General Family Medicine 07/17/17 Nahed Batista [address] [place] [address] Consulting Urology 03/17/19 [facility] 10/09/18 Sql Database Programmer Relationship Specialty Start Date End Date Da Ocampo MD [address] [facility] [place] [address] PCP - General Family Medicine 07/17/17 Nahed Batista [address] [place] [address] Consulting Urology 03/17/19 [facility] 10/09/18 INFORMATION SOURCE (unrecogn ized section and content) DATE CREATED AUTHOR AUTHOR'S TOMMY ATION 04/28/2023 [facility] FOR RECORDS PERTAINING TO PATIENTS WHO ARE [...] BE BASED ON THE PRIMARY CLINICAL RECORDS. [employer] [facility]. provides no warranty or guarantee of the accuracy or completeness of information in this document.
[2023-05-16 12:34] LABS: Absolute Lymphocyte Count 1.26 X10^3/uL (0.83-4.51); Absolute Neutrophil Count 4.1 X10^3/uL (2.0-7.7); Basophil# 0.03 X10^3/uL; Basophil% 0.5 % (0-1); Eosinophils% 1.7 % (0-5); Hematocrit 39.8 % (37-47); Hemoglobin 12.9 g/dL (12.0-15.0); Lymphocyte # 1.26 X10^3/ul (0.83-4.51); Lymphocyte % 20.9 % (19-41); Mean Corp Hgb Conc 32.4 g/dL (32-36); Mean Corpuscular Hgb 28.9 pg (27.0-32.0); Mean Corpuscular Volume 89.2 fL (81-99); Mean Platelet Vol. 9.5 fl (6.2-12.0); Monocyte# 0.48 X10^3/uL; NRBC Flagged by Analyzer 0 % (0-5); Neutrophil # 4.13 X10^3/uL (2.7-7.7); Neutrophil % 68.4 % (47-70); Platelet Count 197 K/mm3 (150-450); RBC Distribution Width CV 12.7 % (11.6-14.6); RBC Distribution Width SD 41.8 fl (35.1-43.9); Red Blood Count 4.46 M/mm3 (4.2-5.4)
[2023-05-16 12:44] LABS: Mucous, Urine 0 SEEN /hpf (<or=2+); Red Blood Cells-Urine 0 SEEN /hpf (0-5); Squamous Epithelial Cells - UA 0 SEEN /hpf (5-10)
[2023-05-16 12:51] LABS: Anion Gap 4 (5-15); BUN 29 mg/dL (7-18); BUN/Creat Ratio 40.8 RATIO (10-20); Calcium,Total 9.8 mg/dL (8.5-10.1); Chloride 106 mmol/L (98-107); Creatinine, Serum 0.71 mg/dL (0.55-1.02); EST Glomerular Filtration Rate 83 mL/min (>60); Est Glom Filt Rate - Afr Amer 100 mL/min (>60); Estimated Creatinine Clearance 52.89 ml/min; Glucose 211 mg/dL (74-106); Potassium 3.6 mmol/L (3.5-5.1); Sodium Level 137 mmol/L (136-145); Troponin-I HS 106 pg/mL (3.0-54.0)
[2023-05-16 13:25] LABS: Color, Urine Yellow (Yellow); Glucose, Dipstick Normal (Normal); Ketone-Dipstick Negative (Negative); Leukocyte Esterase-Dipstick 500 /ul (Negative); Nitrite-Dipstick Negative (Negative); Occult Blood-Urine 150 /ul (Negative); Protein-Dipstick 30 mg/dl (Negative); Urine Bilirubin Dipstick Negative (Negative); Urine Clarity Cloudy (Clear); Urine Urobilinogen Normal (Normal)
[2023-05-16 13:55] LABS: Bacteria 3+ /hpf (None Seen); White Blood Cells >100 SEEN /hpf (0-5)
[2023-05-16 13:55] LABS: Troponin-I HS 97 pg/mL (3.0-54.0)
[2023-05-16 13:57] VITALS: BP 167/63; PULSE 79
[2023-05-16] MEDS: Nitrofurantoin Macrocrystals 100 MG Capsule PO (14:28)
[2023-05-16 15:06] VITALS: BP 148/68; PULSE 64; RESP 17
--- NOTE | 2023-05-16 15:15 | NURSING ---
PCU REAL RT SIDE WEAKNESS, UTI, ELEVATED TROP
[2023-05-16 15:22] VITALS: BP 146/68; PULSE 70; RESP 20; TEMP 37.2; O2SAT 99
--- NOTE | 2023-05-16 15:36 | HP.PCM.HOS_ITS ---
HPI - General General Date of Admission: 05/16/23 Date of Service: 05/16/23 Chief Complaint: R sided weakness HPI Narrative ANGE LAZARO, is a 88-year-old female history of depression, diabetes, hypothyroidism presented to [facility] ED 05/16/2023 due to right-sided weakness. There are conflicting reports on timeline however it seems that patient has some chronic right-sided weakness at least over a period of weeks and then the nurse taking care of patient at [facility] said that the weakness has been slowly worsening over 24 hours, in the ED patient with troponin of 106 that down trended and 97 and had evidence of UTI, lab workup and vitals otherwise normal. CTA with chronic changes and calcified plaques on left and right with less than 50% narrowing. It was suspected that the worsening of her chronic weakness was likely due to underlying infection and patient given dose of antibiotics and hospitalist contacted for admission. Patient evaluated at bedside, history obtained primarily per report as no family at bedside and patient fairly poor historian. Patient's main complaint is that she has been constipated, when discussing the right-sided weakness eventually she noted that 4-year years ago she was pulling up her pants and felt a click in her right arm but because her was dying she never got it checked out but has had weakness since and that the beginning of April ever since she had a shot in her belly she has had difficulty moving her right leg. Denies chest pain or shortness of breath, reports sensation intact in the limbs, no nausea or vomiting or abdominal pain, did not answer directly when asked about p.o. intake but has dry mouth. When asked again about the weakness patient just reported as a chronic problem and could not elicit any acute complaints other than her constipation [facility] Medical History (Updated 05/16/23 @ 15:[address] Emelina Johnson MD) Adult failure to thrive Anxiety and depression Cognitive impairment DM (diabetes mellitus), type 2 Heart murmur History of ovarian cancer Hypertension Hypothyroidism Partial obstruction of small intestine Weakness Home Medications metformin 500 mg tablet 500 mg PO TIDCM blood sugar 12/10/13 [History Last Taken 03/23/22] vit C 250 mg-vit E 90 mg-zinc 40 mg-copper 1 [id number] capsule (PreserVision AREDS-2) 1,000 mg PO DAILY multivitamin 04/22/14 [History Last Taken 03/23/22] diphenhydramine HCl 25 mg capsule 12.5 mg PO QHS PRN Insomnia 11/09/18 [History Last Taken Unknown] methenamine mandelate 1 gram tablet 1 g PO BID URINATION 03/03/21 [History Last Taken 03/23/22] hydrochlorothiazide 25 mg tablet 25 mg PO DAILY BLOOD PRESSURE 03/24/22 [History Last Taken Unknown] menthol 0.44 %-zinc oxide 20.6 % topical ointment (Calmoseptine) 1 applic topical BID SKIN IRITATION 03/24/22 [History Last Taken Unknown] ascorbic acid (vitamin C) 500 mg capsule,extended release (Vitamin C) 1,000 mg PO DAILY 04/18/23 [History Last Taken Unknown] carboxymethylcellulose sodium 0.5 % eye drops (Refresh Tears) 1 drp EACH EYE QHS EYE IRRITATION 04/18/23 [History Last Taken Unknown] desvenlafaxine succinate 50 mg tablet,extended release 24 hr 50 mg PO Q24H 04/18/23 [History Last Taken Unknown] nystatin-triamcinolone 100,000 unit/gram-0.1 % topical ointment 1 applic topical BID PRN 04/18/23 [History Last Taken Unknown] vibegron 75 mg tablet (Gemtesa) 75 mg PO DAILY 04/18/23 [History Last Taken Unknown] acetaminophen 325 mg tablet 650 mg PO Q4H PRN pain 05/16/23 [History Last Taken Unknown] levothyroxine 100 mcg tablet 100 mcg PO DAILY THYROID 05/16/23 [History Last Taken Unknown] magnesium hydroxide 400 mg/5 mL oral suspension (Milk of Magnesia) 30 ml PO DAILY PRN constipation 05/16/23 [History Last Taken Unknown] mirtazapine 15 mg tablet 7.5 mg PO QHS MAJOR DEPRESSIVE DISORDER 05/16/23 [History Last Taken Unknown] polyethylene glycol 3350 17 gram/dose oral powder (Miralax) 17 g PO DAILY CONSTIPATION 05/16/23 [History Last Taken Unknown] potassium chloride 20 mEq tablet,extended release 20 meq PO DAILY POTASSIUM 05/16/23 [History Last Taken Unknown] Allergy/AdvReac Type Severity Reaction Status Date / Time amoxicillin [From Augmentin] Allergy Itching Verified 05/16/23 11:56 cefdinir Allergy Rash Verified 05/16/23 11:56 ciprofloxacin [From Cipro] Allergy Swelling Verified 05/16/23 11:56 clavulanic acid Allergy Itching Verified 05/16/23 11:56 [From Augmentin] doxycycline calcium Allergy Unknown Verified 05/16/23 11:56 [From Vibramycin] doxycycline hyclate Allergy Unknown Verified 04/18/23 00:49 [From Vibramycin] doxycycline monohydrate Allergy Unknown Verified 05/16/23 11:56 [From Vibramycin] fluticasone Allergy Unknown Verified 05/16/23 11:56 influenza virus vaccine, Allergy Swelling Verified 05/16/23 11:56 specific [Influenza Virus Vacc,Specific] losartan Allergy Angioedema Verified 05/16/23 11:56 pneumococcal vaccine Allergy Rash Verified 05/16/23 11:56 [Pneumococcal Vaccine] promethazine HCl Allergy Unknown Verified 05/16/23 11:56 [From Phenergan] tetracycline [Tetracycline] Allergy Unknown Verified 05/16/23 11:56 cephalexin [From Keflex] AdvReac Rash Verified 05/16/23 11:56 metronidazole [From Flagyl] AdvReac Unknown Verified 05/16/23 11:56 sulfamethoxazole AdvReac Rash Verified 05/16/23 11:56 [From Bactrim] trimethoprim [From Bactrim] AdvReac Rash Verified 05/16/23 11:56 Family History Mother Liver cancer Father Heart disease Surgical History History of cataract surgery History of exploratory laparotomy Hx of tonsillectomy Status post small bowel resection Status post total abdominal hysterectomy Social History household members: none Smoking Status: Never smoker alcohol intake: current alcohol intake frequency: holidays/special occasions only substance use type: does not use ROS ROS Narrative General: No fevers or chills endorsed HENT: Dry mouth EYES: No changes in vision reported Resp: Denies cough, denies shortness of breath Cardiac: Denies chest pain GI: Denies abdominal pain, has been constipated, denies nausea/vomiting : Did not note changes in urination Extremity: Denies swelling MSK: Right-sided weakness Neuro: Denies any numbness/tingling Heme: Denies any bleeding or bruising Skin: Denies rashes Psychiatric: Patient anxious Vital Signs Vital Signs Vital Signs: 05/16/23 11:42 05/16/23 13:57 05/16/23 15:06 Temperature 97.9 F Temperature Source Temporal Pulse Rate 68 79 64 Respiratory Rate 14 17 Blood Pressure 156/67 H 167/63 H 148/68 H Blood Pressure Mean 96 97 94 Pulse Ox 97 Oxygen Delivery Method Room Air 05/16/23 15:22 Temperature 98.9 F Temperature Source Pulse Rate 70 Respiratory Rate 20 H Blood Pressure 146/68 H Blood Pressure Mean 94 Pulse Ox 99 Oxygen Delivery Method Weight Weight: 80.1 kg Body Mass Index (BMI) 28.5 Physical Exam Narrative General: Alert, appears anxious HEENT: Atraumatic, normocephalic Eyes: Anicteric, normal conjunctiva, extraocular movements intact, R eye different in outward appearance than left but both sides moving Neck: Supple Respiratory: Clear to auscultation bilaterally, normal respiratory effort Cardiovascular: Regular rate and rhythm GI: Soft, nontender, nondistended Extremities: No edema Musculoskeletal: Moving left upper and lower extremity without difficulty, patient endorses not being able to move right extremities, did wiggle her toes on her right foot at 1 point but when asked to wiggle her toes she said she could not and toe stopped moving, no sustained clonus or brisk reflexes in either lower extremity Neuro: Aside from upper and lower right-sided limb movement, cranial nerves II through XII intact Skin: No rashes appreciated Psych: Difficulty answering questions directly Results Lab / Micro Data 05/16/23 12:20 05/16/23 12:20 Labs: Laboratory Results - last 24 hr 05/16/23 12:20: WBC 6.0, RBC 4.46, Hgb 12.9, Hct 39.8, MCV 89.2, MCH 28.9, MCHC 32.4, RDW Std Deviation 41.8, RDW Coeff of Marleni 12.7, Plt Count 197, MPV 9.5, Immature Gran % (Auto) 0.500, Neut % (Auto) 68.4, Lymph % (Auto) 20.9, [place] % (Auto) 8.0, Eos % (Auto) 1.7, Baso % (Auto) 0.5, Absolute Neuts (auto) 4.1, Abs olute Lymphs (auto) 1.26, Nucleated RBC % 0, Sodium 137, Potassium 3.6, Chloride 106, Carbon Dioxide 27.0, Anion Gap 4 L, BUN 29 H, Creatinine 0.71, Estim Creat Clear Calc 52.89, Est GFR (MDRD) Af Amer 100, Est GFR (MDRD) Non-Af 83, BUN/Creatinine Ratio 40.8 H, Glucose 211 H, Calcium 9.8, Troponin I High Sens 106 H 05/16/23 12:35: Urine Color Yellow, Urine Clarity Cloudy, Urine pH 6.0, Ur Specific [place] 1.020, Urine Protein 30 H, Urine Glucose (UA) Normal, Urine Ketones Negative, Urine Occult Blood 150 H, Urine Nitrite Negative, Urine Bilirubin Negative, Urine Urobilinogen Normal, Ur Leukocyte Esterase 500 H, Urine RBC 0 SEEN, Urine WBC >100 SEEN, Ur Squamous Epith Cells 0 SEEN, Urine Bacteria 3+, Urine Mucus 0 SEEN 05/16/23 13:30: Troponin I High Sens 97 H Imaging Radiology Impression Head/Neck CTA 05/16/23 12:10 IMPRESSION: 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 Electronically Signed: Kyle Oates MD at 13:43 EST Reading Location ID and State: [address] [place] [address] , Service support , Assessment & Plan Assessment/Plan (1) UTI (urinary tract infection): (2) Right sided weakness: (3) Hypothyroidism: (4) DM (diabetes mellitus), type 2: PLAN: Plan #UTI -Patient historically grows E. coli with specific resistance pattern -UA consistent with UTI -Has multiple antibiotic allergies but none that are anaphylactic and it appears she has received Rocephin and cefepime as well as cefazolin in the past -Will start Rocephin and await urine culture -Will get bladder scan to verify pt not retaining -Pt appears dehydrated, will start IVF, hold HCTZ -Ovalo diet #?Worsening right-sided weakness -Sounds to be a right-sided weakness over period of weeks vs years that steadily worsened over the past 48 hours, CTA no acute process, suspect infection/UTI may be because of worsening of the already existing weakness -Timeline of right sided weakness very unclear and pt did seem to move foot until asked to do so and then reported unable to move it -Pt reported she has avoided MRI's for years due to anxiety and refuses MRI now, will consult tele neurology for additional recs, can consider repeating CT scan in 24 hrs but given timeline unlikely to be high yield and given pts report of upper extremity weakness for 3-4 years and lower extremity weakness for weeks unclear if this is stroke in nature vs separate etiologies -Do suspect worsening over the past two days is more likely related to UTI, however cannot confirm this given variable hx so will treat as subacute stroke r/o with stroke protocols -Admit to tele -CTA head and neck no acute process -MRI refused by pt -NIH q4hr -asa, statin -Echo w/ bubble study -PT/OT/Speech eval -Case management consult -Does not need BP goals as sx >24 hrs #constipation -Schedule senna/docusate #Hypothyroidism -Continue Synthroid -Recent TSH 5.12 #Type 2 diabetes mellitus -Glucose checks and sliding scale insulin -hold metformin #History of ovarian cancer -S/p total abdominal hysterectomy. #Mood d/o -Continue remeron -Continue prestiq #DVT ppx: SCDs Emelina Johnson MD CODE STATUS: DNR signed and on physical chart by Dr. Gr, no family at bedside for confirmation and pt poor historian and do not feel at time of exam pt able to have CODE STATUS discussion given mental status so signed paperwork code status reflected in orders Time spent in the patient's overall evaluation,decision-making process, review of diagnostic data, adjustment of management, discussion with other providers, nursing nursing and ancillary staff involved in patient's care documentation, 57 minutes Charges/Coding Visit Charges Inpatient E&M: 66518 Init Hosp L2
--- NOTE | 2023-05-16 15:57 | ECHOCS_ITS ---
Reason For Study: TIA/STROKE Procedure This was a 2D Doppler, Color Flow transthoracic echocardiogram. The study was technically difficult. Exam performed portable in patient room. Left Ventricle Normal LV size. Mild concentric left ventricular hypertrophy. Left ventricular systolic function is normal. The estimated ejection fraction is 55 %. No regional wall motion abnormalities noted. Right Ventricle Normal RV size. Normal systolic function. Atria Normal left atrium. Normal right atrium. Bubble contrast study negative for right to left interatrial shunt. Mitral Valve Mild focal mitral valve calcification, bileaflet. There is moderate to severe mitral annular calcification. Tricuspid Valve Normal tricuspid valve. Mild (1+) tricuspid valve insufficiency. Pulmonary artery systolic pressure is 38 mmHg. Aortic Valve Trisinus/trileaflet aortic valve. Moderate focal aortic valve calcification. Pulmonic Valve Normal pulmonic valve. Great Vessels Normal aortic root. The pulmonary artery is normal size. Normal inferior vena cava. Pericardium/Pleural No pericardial effusion. Medication Diluted definity 3ml given slow IV push to enhance endocardial definition. Performed a rapid injection of agitated mix of 9 cc saline and 1cc air to assess for atrial septal defect. MMode/2D Measurements & Calculations LVIDd: 4.0 cm IVSd: 1.3 cm LVOT diam: 2.1 cm LVIDs: 3.0 cm LVPWd: 1.2 cm RVDd: 3.5 cm FS: 26.6 % LVOT area: 3.6 cm2 Ao root diam: 3.1 cm LAV(MOD-bp): 33.7 ml LVAd ap4: 25.9 cm2 LAV(MOD-bp) Indexed: 17.8 ml/m2 LVLd ap4: 7.4 cm LAV(MOD-sp2): 34.6 ml EDV(MOD-sp4): 73.7 ml LAV(MOD-sp4): 32.2 ml EDV(sp4-el): 77.0 ml LVAs ap4: 16.2 cm2 LVLs ap4: 6.3 cm ESV(MOD-sp4): 34.9 ml ESV(sp4-el): 35.3 ml EF(MOD-sp4): 52.6 % EF(sp4-el): 54.2 % SV(MOD-sp4): 38.7 ml SV(sp4-el): 41.7 ml LA A4 area: 15.5 cm2 LA dimension(2D): 2.8 cm RA A4 area: 13.8 cm2 TAPSE: 2.0 cm Time Measurements MV dec time: 0.30 sec Doppler Measurements & Calculations MV E max hamzah: 89.4 cm/sec Lat Peak E' Hamzah: 4.7 cm/sec Med Peak E' Hamzah: 5.3 cm/sec MV A max hamzah: 165.7 cm/sec E/E' lat: 18.8 E/E' med: 17.0 MV E/A: 0.54 MV V2 max: 200.2 cm/sec MV P1/2t max hamzah: 105.9 cm/sec Ao V2 max: 270.0 cm/sec MV max P.0 mmHg MV P1/2t: 119.0 msec Ao max P.2 mmHg MV V2 mean: 116.3 cm/sec MV dec slope: 260.4 cm/sec2 Ao V2 mean: 201.9 cm/sec MV mean P.0 mmHg MVA(P1/2t): 1.8 cm2 Ao mean P.8 mmHg MV V2 VTI: 46.1 cm Ao V2 VTI: 61.1 cm MVA(VTI): 1.6 cm2 AV (velocity ratio): 0.33 LAILA(I,D): 1.2 cm2 LAILA(V,D): 1.2 cm2 LV V1 max: 88.8 cm/sec SV(LVOT): 72.1 ml PA V2 max: 125.5 cm/sec LV V1 max P.2 mmHg LV V1 mean P.8 mmHg LV V1 mean: 63.8 cm/sec LV V1 VTI: 20.2 cm TR max hamzah: 293.3 cm/sec TR max P.4 mmHg ECHO/Echo Complete W/ Contrast Interpretation Summary Normal LV size. Left ventricular systolic function is normal. The estimated ejection fraction is 55 %. Mild focal mitral valve calcification, bileaflet. There is moderate to severe mitral annular calcification. Mild concentric left ventricular hypertrophy. Contrast injection was performed. Ordering Physician: Emelina Johnson Referring Physician: GE FUNK Performed By: Angelita Fu RDCS
[2023-05-16 16:16] VITALS: BMI 26.6
[2023-05-16 17:05] VITALS: BP 176/71; PULSE 68; RESP 18; TEMP 36.6; O2SAT 96
[2023-05-16 17:06] VITALS: BMI 26.6
[2023-05-16] MEDS: 0.9% Normal Saline (1000mL) 1,000 ML 75 ML IV (17:37)
[2023-05-16] MEDS: Ceftriaxone 1 GM/50 ML BAG IV (17:37)
[2023-05-16 18:06] LABS: Bedside Glucose 125 mg/dL (74-106)
[2023-05-16] MEDS: MELATONIN 10 MG TABLET PO (20:44)
[2023-05-16] MEDS: Senna/Docusate Sodium 1 Tablet 2 TABLET PO (20:45)
[2023-05-16] MEDS: Atorvastatin Calcium 40 MG Tablet PO (20:45)
[2023-05-16] MEDS: Mirtazapine 15 MG Tablet 7.5 MG PO (20:45)
[2023-05-16] MEDS: Methenamine Hippurate 1 GM Tablet PO (20:45)
[2023-05-16] MEDS: Insulin Lispro 100 UNIT/ML INSULN.PEN SC (21:02)
[2023-05-16 21:05] VITALS: BP 122/64; PULSE 72; RESP 16; TEMP 36.8; O2SAT 95
[2023-05-16 21:09] LABS: Bedside Glucose 154 mg/dL (74-106)
[2023-05-16 22:58] VITALS: BMI 26.6
[2023-05-17] VITALS (8 sets, daily range): BP systolic 113–138; BP diastolic 48–115; PULSE 65–70; RESP 14–18; TEMP 36.3–36.6; O2SAT 91–97; BMI 26.6
[2023-05-17 05:49] LABS: Absolute Lymphocyte Count 0.86 X10^3/uL (0.83-4.51); Absolute Neutrophil Count 6.7 X10^3/uL (2.0-7.7); Basophil# 0.02 X10^3/uL; Basophil% 0.2 % (0-1); Eosinophil# 0.18 X10^3/uL; Eosinophils% 2.2 % (0-5); Hematocrit 39.7 % (37-47); Hemoglobin 12.6 g/dL (12.0-15.0); Lymphocyte # 0.86 X10^3/ul (0.83-4.51); Lymphocyte % 10.5 % (19-41); Mean Corp Hgb Conc 31.7 g/dL (32-36); Mean Corpuscular Hgb 28.3 pg (27.0-32.0); Mean Platelet Vol. 9.9 fl (6.2-12.0); Monocyte# 0.38 X10^3/uL; Monocyte% 4.6 % (0-10); NRBC Flagged by Analyzer 0 % (0-5); Neutrophil # 6.71 X10^3/uL (2.7-7.7); Neutrophil % 82.1 % (47-70); Platelet Count 202 K/mm3 (150-450); RBC Distribution Width CV 12.8 % (11.6-14.6); RBC Distribution Width SD 41.7 fl (35.1-43.9); Red Blood Count 4.46 M/mm3 (4.2-5.4); White Blood Count 8.2 K/mm3 (4.4-11.0)
[2023-05-17 06:15] LABS: Anion Gap 5 (5-15); BUN 27 mg/dL (7-18); BUN/Creat Ratio 44.2 RATIO (10-20); Calcium,Total 9.4 mg/dL (8.5-10.1); Chloride 105 mmol/L (98-107); Cholesterol 186 mg/dL (200); Creatinine, Serum 0.61 mg/dL (0.55-1.02); EST Glomerular Filtration Rate 98 mL/min (>60); Est Glom Filt Rate - Afr Amer 119 mL/min (>60); Estimated Creatinine Clearance 51.26 ml/min; Glucose 157 mg/dL (74-106); High Density Lipoprotein 70 mg/dL; Magnesium 1.9 mg/dL (1.6-2.6); Potassium 3.9 mmol/L (3.5-5.1); Sodium Level 139 mmol/L (136-145); Triglycerides 91 mg/dL; Very Low Density Lipoprotein 18 mg/dL (5-40)
[2023-05-17 07:00] LABS: Bedside Glucose 139 mg/dL (74-106)
[2023-05-17] MEDS: Ceftriaxone 1 GM/50 ML BAG IV (08:59)
[2023-05-17] MEDS: Venlafaxine XR 37.5 MG Capsule PO (09:01)
[2023-05-17] MEDS: Aspirin 81 MG TAB.CHEW PO (09:01)
[2023-05-17] MEDS: Vibegron 75 MG TABLET PO (09:01)
[2023-05-17] MEDS: Methenamine Hippurate 1 GM Tablet PO ×2 (09:01→21:00)
[2023-05-17] MEDS: Senna/Docusate Sodium 1 Tablet 2 TABLET PO ×2 (09:01→21:02)
[2023-05-17] MEDS: Levothyroxine 100 MCG Tablet PO (09:02)
--- NOTE | 2023-05-17 09:34 | PCM.PN.HOSP ---
Subjective Subjective Continues to complain of constipation, she is aware of where she is but she is a little bit disoriented Objective Data Objective Data Vital Signs: Vital Signs Temp Pulse Resp BP Pulse Ox O2 Del Method 97.6 F L 68 14 115/50 L 91 Room Air 05/17/23 05:05 05/17/23 05:05 05/17/23 05:05 05/17/23 05:05 05/17/23 07:17 05/17/23 08:27 Oxygen Delivery Method Room Air Weight: 165 lb 2.02 oz Body Mass Index (BMI) 26.6 Intake & Output: Intake and Output for Last 24 Hours 05/16/23 05/17/23 05/18/23 03:59 03:59 03:59 Intake Total 530 / 530 1000 / 1000 Balance 530 / 530 1000 / 1000 Lab / Micro Data 05/17/23 04:50 05/17/23 04:50 Labs: Laboratory Results - last 24 hr 05/16/23 12:20: WBC 6.0, RBC 4.46, Hgb 12.9, Hct 39.8, MCV 89.2, MCH 28.9, MCHC 32.4, RDW Std Deviation 41.8, RDW Coeff of Marleni 12.7, Plt Count 197, MPV 9.5, Immature Gran % (Auto) 0.500, Neut % (Auto) 68.4, Lymph % (Auto) 20.9, [place] % (Auto) 8.0, Eos % (Auto) 1.7, Baso % (Auto) 0.5, Absolute Neuts (auto) 4.1, Absolute Lymphs (auto) 1.26, Nucleated RBC % 0, Sodium 137, Potassium 3.6, Chloride 106, Carbon Dioxide 27.0, Anion Gap 4 L, BUN 29 H, Creatinine 0.71, Estim Creat Clear Calc 52.89, Est GFR (MDRD) Af Amer 100, Est GFR (MDRD) Non-Af 83, BUN/Creatinine Ratio 40.8 H, Glucose 211 H, Calcium 9.8, Troponin I High Sens 106 H 05/16/23 12:35: Urine Color Yellow, Urine Clarity Cloudy, Urine pH 6.0, Ur Specific [place] 1.020, Urine Protein 30 H, Urine Glucose (UA) Normal, Urine Ketones Negative, Urine Occult Blood 150 H, Urine Nitrite Negative, Urine Bilirubin Negative, Urine Urobilinogen Normal, Ur Leukocyte Esterase 500 H, Urine RBC 0 SEEN, Urine WBC >100 SEEN, Ur Squamous Epith Cells 0 SEEN, Urine Bacteria 3+, Urine Mucus 0 SEEN 05/16/23 13:30: Troponin I High Sens 97 H 05/16/23 17:46: POC Glucose 125 H 05/16/23 20:41: POC Glucose 154 H 05/17/23 04:50: WBC 8.2, RBC 4.46, Hgb 12.6, Hct 39.7, MCV 89.0, MCH 28.3, MCHC 31.7 L, RDW Std Deviation 41.7, RDW Coeff of Marleni 12.8, Plt Count 202, MPV 9.9, Immature Gran % (Auto) 0.400, Neut % (Auto) 82.1 H, Lymph % (Auto) 10.5 L, [place] % (Auto) 4.6, Eos % (Auto) 2.2, Baso % (Auto) 0.2, Absolute Neuts (auto) 6.7, Absolute Lymphs (auto) 0.86, Nucleated RBC % 0, Sodium 139, Potassium 3.9, Chloride 105, Carbon Dioxide 29.0, Anion Gap 5, BUN 27 H, Creatinine 0.61, Estim Creat Clear Calc 51.26, Est GFR (MDRD) Af Amer 119, Est GFR (MDRD) Non-Af 98, BUN/Creatinine Ratio 44.2 H, Glucose 157 H, Calcium 9.4, Magnesium 1.9, Triglycerides 91, Cholesterol 186, LDL Cholesterol 98, VLDL Cholesterol 18, HDL Cholesterol 70 05/17/23 06:38: POC Glucose 139 H Radiography Diagnostic Testing: Radiology Impression Head/Neck CTA 05/16/23 12:10 IMPRESSION: 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 Electronically Signed: Kyle Oates MD at 13:43 EST , Physical Exam Narrative General: Alert, Oriented to place, Cooperative, No apparent distress HEENT: Atraumatic, PERRLA, EOMI, Normocephalic Oral: Moist Mucosa Neck: Supple, No JVD Lungs: Diminished, Normal air movement, No rhonchi, No wheeze, No rales Cardiovascular: Regular rate, Regular Rhythm, Normal S1, Normal S2, No murmurs Abdomen: Soft, Non Tender, Non-Distended, No Hepato-splenomegaly Extremities: No edema, Capillary Refill Less than 3 Seconds Skin: No rashes, No breakdown Musculoskeletal: No Tenderness to Palpation of Joints or Extremities Neurological: It appears that her right-sided weakness is at baseline, though exam is challenging because of mental status Psych/Mental Status: Flat Assessment & Plan Assessment/Plan (1) UTI (urinary tract infection): (2) Right sided weakness: (3) Hypothyroidism: (4) DM (diabetes mellitus), type 2: PLAN: Plan 1. UTI potentially instigating worsening right-sided weakness versus new CVA ? CT of the head and neck was unremarkable ? And she refuses an MRI, neurology has been consulted ? Echo is pending ? She was directly growth E. coli so we will continue with Rocephin ?Continue with aspirin and statin 2. DM2 ? Hold metformin ? Insulin ? Accu-Cheks ACHS ? We will monitor make adjustments as necessary 3. Hypothyroidism ? Stable ? Continue with Synthroid ? Recent TSH of 5.12 4. Constipation ? Continue with bowel regimen 5. Anxiety/depression ? Continue with her home medications DVT: SCDs Charges/Coding Visit Charges Inpatient E&M: 51351 Subs Hosp L2
--- NOTE | 2023-05-17 10:05 | CASEMGMT ---
IRINA met with patient. Introduced self and role at [facility]. Patient confirmed her plan is to return to [place] at discharge. Aleksandra d/c planning aide will send updates to [place]. Plan: d/c back to [place] under intermediate level of care. Clara Galarza [employer] ANIKA
--- NOTE | 2023-05-17 10:32 | CASEMGMT ---
[facility]charge [facility]. Aleksandra White, Discharge Planning Asst.
--- NOTE | 2023-05-17 11:35 | CASEMGMT ---
Social Work General Power of assistant county attorney, that does include provisions that appear to cover healthcare decisions, scanned into [employer], Richa [place] is pt's POA. AMARIS Figueroa
[2023-05-17 12:16] LABS: Bedside Glucose 142 mg/dL (74-106)
--- NOTE | 2023-05-17 12:59 | NEURO.CONS ---
Assessment and Plan: Neuro Assessment/Plan ANGE LAZARO is a 88 F with a past medical history of depression, diabetes, hypothyroidism, being evaluated by Teleneurology for R sided weakness of unclear duration and progression. Exam with flaccid RUE and RLE, no clear evidence of UMN signs such as spaciticy. Unclear at this time even the duration of events. Will need to get additional history from her half-way [facility]. This could represent a new stroke or recrudecence of prior symptoms in setting of UTI. 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 HPI Consult Data Date of Consult: 05/18/23 HPI Narrative HPI Narrative: ANGE LAZARO, is a 88-year-old female history of depression, diabetes, hypothyroidism presented to [facility] ED 05/16/2023 due to right-sided weakness. There are conflicting reports on timeline however it seems that patient has some chronic right-sided weakness at least over a period of weeks and then the nurse taking care of patient at [facility] said that the weakness has been slowly worsening over 24 hours, in the ED patient with troponin of 106 that down trended and 97 and had evidence of UTI, lab workup and vitals otherwise normal. CTA with chronic changes and calcified plaques on left and right with less than 50% narrowing. It was suspected that the worsening of her chronic weakness was likely due to underlying infection and patient given dose of antibiotics and hospitalist contacted for admission. Patient evaluated at bedside, history obtained primarily per report as no family at bedside and patient fairly poor historian. Patient's main complaint is that she has been constipated, when discussing the right-sided weakness eventually she noted that 4-year years ago she was pulling up her pants and felt a click in her right arm but because her was dying she never got it checked out but has had weakness since and that the beginning of April ever since she had a shot in her belly she has had difficulty moving her right leg. Denies chest pain or shortness of breath, reports sensation intact in the limbs, no nausea or vomiting or abdominal pain, did not answer directly when asked about p.o. intake but has dry mouth. When asked again about the weakness patient just reported as a chronic problem and could not elicit any acute complaints other than her constipation Neurologic History: 88 yo presenting with R sided weakness, refusing MRIs at this time due to anxiety. Pt with history of prior R sided weakness and progression. At this time unclear what the over all history is and states that she has had difficulty moving her R side after a shot in april. Will attempt to discuss her desire to forgo the MRIs with family [facility] Medical History (Updated 05/16/23 @ 15:[address] Emelina Johnson MD) Adult failure to thrive Anxiety and depression Cognitive impairment DM (diabetes mellitus), type 2 Heart murmur History of ovarian cancer Hypertension Hypothyroidism Partial obstruction of small intestine Weakness Home Medications metformin 500 mg tablet 500 mg PO TIDCM blood sugar 12/10/13 [History Last Taken 03/23/22] vit C 250 mg-vit E 90 mg-zinc 40 mg-copper 1 yr-ooyemk-vsiuwz capsule (PreserVision AREDS-2) 1,000 mg PO DAILY multivitamin 04/22/14 [History Last Taken 03/23/22] diphenhydramine HCl 25 mg capsule 12.5 mg PO QHS PRN Insomnia 11/09/18 [History Last Taken Unknown] methenamine mandelate 1 gram tablet 1 g PO BID URINATION 03/03/21 [History Last Taken 03/23/22] hydrochlorothiazide 25 mg tablet 25 mg PO DAILY BLOOD PRESSURE 03/24/22 [History Last Taken Unknown] menthol 0.44 %-zinc oxide 20.6 % topical ointment (Calmoseptine) 1 applic topical BID SKIN IRITATION 03/24/22 [History Last Taken Unknown] ascorbic acid (vitamin C) 500 mg capsule,extended release (Vitamin C) 1,000 mg PO DAILY 04/18/23 [History Last Taken Unknown] carboxymethylcellulose sodium 0.5 % eye drops (Refresh Tears) 1 drp EACH EYE QHS EYE IRRITATION 04/18/23 [History Last Taken Unknown] desvenlafaxine succinate 50 mg tablet,extended release 24 hr 50 mg PO Q24H 04/18/23 [History Last Taken Unknown] nystatin-triamcinolone 100,000 unit/gram-0.1 % topical ointment 1 applic topical BID PRN 04/18/23 [History Last Taken Unknown] vibegron 75 mg tablet (Gemtesa) 75 mg PO DAILY 04/18/23 [History Last Taken Unknown] acetaminophen 325 mg tablet 650 mg PO Q4H PRN pain 05/16/23 [History Last Taken Unknown] levothyroxine 100 mcg tablet 100 mcg PO DAILY THYROID 05/16/23 [History Last Taken Unknown] magnesium hydroxide 400 mg/5 mL oral suspension (Milk of Magnesia) 30 ml PO DAILY PRN constipation 05/16/23 [History Last Taken Unknown] mirtazapine 15 mg tablet 7.5 mg PO QHS MAJOR DEPRESSIVE DISORDER 05/16/23 [History Last Taken Unknown] polyethylene glycol 3350 17 gram/dose oral powder (Miralax) 17 g PO DAILY CONSTIPATION 05/16/23 [History Last Taken Unknown] potassium chloride 20 mEq tablet,extended release 20 meq PO DAILY POTASSIUM 05/16/23 [History Last Taken Unknown] Allergy/AdvReac Type Severity Reaction Status Date / Time amoxicillin [From Augmentin] Allergy Itching Verified 05/16/23 11:56 cefdinir Allergy Rash Verified 05/16/23 11:56 ciprofloxacin [From Cipro] Allergy Swelling Verified 05/16/23 11:56 clavulanic acid Allergy Itching Verified 05/16/23 11:56 [From Augmentin] doxycycline calcium Allergy Unknown Verified 05/16/23 11:56 [From Vibramycin] doxycycline hyclate Allergy Unknown Verified 04/18/23 00:49 [From Vibramycin] doxycycline monohydrate Allergy Unknown Verified 05/16/23 11:56 [From Vibramycin] fluticasone Allergy Unknown Verified 05/16/23 11:56 influenza virus vaccine, Allergy Swelling Verified 05/16/23 11:56 specific [Influenza Virus Vacc,Specific] losartan Allergy Angioedema Verified 05/16/23 11:56 pneumococcal vaccine Allergy Rash Verified 05/16/23 11:56 [Pneumococcal Vaccine] promethazine HCl Allergy Unknown Verified 05/16/23 11:56 [From Phenergan] tetracycline [Tetracycline] Allergy Unknown Verified 05/16/23 11:56 cephalexin [From Keflex] AdvReac Rash Verified 05/16/23 11:56 metronidazole [From Flagyl] AdvReac Unknown Verified 05/16/23 11:56 sulfamethoxazole AdvReac Rash Verified 05/16/23 11:56 [From Bactrim] trimethoprim [From Bactrim] AdvReac Rash Verified 05/16/23 11:56 Family History Mother Liver cancer Father Heart disease Surgical History History of cataract surgery History of exploratory laparotomy Hx of tonsillectomy Status post small bowel resection Status post total abdominal hysterectomy Social History household members: none Smoking Status: Never smoker alcohol intake: current alcohol intake frequency: holidays/special occasions only substance use type: does not use Vital Signs Vital Signs Vital Signs: 05/16/23 13:57 05/16/23 15:06 05/16/23 15:22 Temperature 98.9 F Temperature Source Pulse Rate 79 64 70 Pulse Strength Respiratory Rate 17 20 H Respiratory Effort Respiratory Depth Respiratory Pattern Blood Pressure 167/63 H 148/68 H 146/68 H Blood Pressure Mean 97 94 94 Blood Pressure Source Blood Pressure Position Blood Pressure Location Pulse Ox 99 Oxygen Delivery Method 05/16/23 17:05 05/16/23 22:00 05/16/23 21:05 Temperature 97.9 F 98.2 F Temperature Source Temporal Oral Pulse Rate 68 72 Pulse Strength Normal (2+) Respiratory Rate 18 16 Respiratory Effort Respiratory Depth Respiratory Pattern Blood Pressure 176/71 H 122/64 H Blood Pressure Mean 106 83 Blood Pressure Source Monitor Monitor Blood Pressure Position Semi-Fowlers Semi-Fowlers Blood Pressure Location Right Arm Left Arm Pulse Ox 96 95 Oxygen Delivery Method Room Air Room Air 05/16/23 22:00 05/17/23 01:05 05/17/23 03:46 Temperature 97.8 F Temperature Source Oral Pulse Rate 65 Pulse Strength Respiratory Rate 14 Respiratory Effort Normal Non-Labored Normal Non-Labored Respiratory Depth Normal Normal Respiratory Pattern Normal Normal Blood Pressure 131/48 H Blood Pressure Mean 75 Blood Pressure Source Monitor Blood Pressure Position Semi-Fowlers Blood Pressure Location Left Arm Pulse Ox 95 Oxygen Delivery Method Room Air Room Air Room Air 05/17/23 05:05 05/17/23 03:30 05/17/23 07:17 Temperature 97.6 F L Temperature Source Oral Pulse Rate 68 Pulse Strength Respiratory Rate 14 Respiratory Effort Respiratory Depth Respiratory Pattern Blood Pressure 115/50 L Blood Pressure Mean 71 Blood Pressure Source Monitor Blood Pressure Position Semi-Fowlers Blood Pressure Location Left Arm Pulse Ox 96 94 91 Oxygen Delivery Method Room Air Room Air Room Air 05/17/23 08:15 05/17/23 08:27 05/17/23 09:05 Temperature 97.5 F L Temperature Source Temporal Pulse Rate 70 Pulse Strength Normal (2+) Respiratory Rate 18 Respiratory Effort Normal Non-Labored Respiratory Depth Normal Respiratory Pattern Normal Blood Pressure 134/66 H Blood Pressure Mean 88 Blood Pressure Source Monitor Blood Pressure Position Semi-Fowlers Blood Pressure Location Right Arm Pulse Ox 94 Oxygen Delivery Method Room Air Room Air Weight Weight: 74.9 kg Body Mass Index (BMI) 26.6 EEG Results Procedure Details EEG Procedure Details: ANGE LAZARO is a 88 year old F with a past medical history of , who presents for evaluation of Electroencephalogram on DATE at TIME NIHSS NIHSS Nursing Documentation NIHSS Nursing Documentation: NIHSS: Ischemic Stroke/TIA Start: 05/16/23 16:12 Text: For PCU Patients: NIH and Neuro Check every 4 Status: Active hours and PRN Freq: [id number] Protocol: Activity Type Activity Date Activity User E-sign Co-sign Detail Recorded Client Recorded Date Recorded By Document 05/17/23 09:05 [facility] Desktop 05/17/23 11:46 [facility] 05/17/23 09:05 NIH Stroke Scale [NIHSS] A score of 0 is normal or asymptomatic . Total possible score is 42. Inpatient: RN or Physician to activate a stroke alert for onset of new stroke symptoms or with NIHSS increase >/= 3 points. Following change in neurological status, NIHSS will be performed per physician order or more frequently PRN. -1a. Level of Consciousness Alert; keenly responsive -1b. LOC Questions Answers BOTH questions correctly. -1c. LOC Commands Performs both tasks correctly . -2. Best Gaze Normal -3. Visual Bilateral hemianopia ( blind, including cortical blindness) -4. Facial Palsy Normal symmetrical movements -5a. Left Arm No drift; arm holds 90 (or 45 ) degrees for full 10 seconds -5b. Right Arm No effort against gravity ; arm falls -6a. Left Leg No drift; leg holds 30-degree position for full 5 seconds -6b. Right Leg No effort against gravity ; leg falls to bed immediately -7. Limb Ataxia Present in 2 limbs -8. Sensory Normal; no sensory loss -9. Best Language No aphasia; normal -10. Dysarthria Normal -11. Extinction and Inattention No abnormality -Total 11 Query Text:A score of 0 is normal or asymptomatic. Total possible score is 42 . ED: Notify Physician for NIHSS increase by > / = 3 points. Inpatient: RN or Physician to activate a stroke alert for NIHSS increase of > / = 3 points. Coma Scale [Assess] -Eye Opening Spontaneous -Motor Obeys Commands -Verbal Oriented [Total] -Coma Scale Total 15 Physical Exam Narrative -? General: Laying comfortably in bed; in no acute distress. -? HENT: Normal oropharynx and mucosa. Normal external appearance of ears and nose. Exophthalmos. -? Neck: Supple, no pain or tenderness -? CV:? No peripheral edema. -? Pulmonary:? Normal respiratory effort. -? Ext: No cyanosis, edema, or deformity -? Skin: No rash. Normal palpation of skin.? -? Musculoskeletal: full range of motion; no joint tenderness. Normal digits and nails by inspection. No clubbing. -? NEURO: -? Mental Status: The patient was alert and oriented to time, place, and person. She does not always tell her history in a clearly linear fashion and has difficulty with timelines. Tangential in history slightly -? Language: speech is clear.? Naming, repetition, fluency, and comprehension intact. -? Cranial Nerves: Pt blind at baseline, no clear EOM abnormalities, possible L facial droop, facial sensation intact -? Motor: Detailed strength exam as performed by the nurse/DESIRAE and witnessed by the physician: Pt with no effort against gravity on the RUE and the RLE. withdraws slightly to pain in the RLE, none in the RUE. Antigravity strongly on the LUE and LLE - Detailed reflex exam as performed by the nurse/DESIRAE and witnessed by the physician: R L Biceps Patellar Ankle Babinski mute mute -? Tone: flaccid on the RUE and RLE -? Lab / Micro Data 05/17/23 04:50 05/17/23 04:50 Labs: Laboratory Results - last 24 hr 05/16/23 12:35: Urine Color Yellow, Urine Clarity Cloudy, Urine pH 6.0, Ur Specific [place] 1.020, Urine Protein 30 H, Urine Glucose (UA) Normal, Urine Ketones Negative, Urine Occult Blood 150 H, Urine Nitrite Negative, Urine Bilirubin Negative, Urine Urobilinogen Normal, Ur Leukocyte Esterase 500 H, Urine RBC 0 SEEN, Urine WBC >100 SEEN, Ur Squamous Epith Cells 0 SEEN, Urine Bacteria 3+, Urine Mucus 0 SEEN 05/16/23 13:30: Troponin I High Sens 97 H 05/16/23 17:46: POC Glucose 125 H 05/16/23 20:41: POC Glucose 154 H 05/17/23 04:50: WBC 8.2, RBC 4.46, Hgb 12.6, Hct 39.7, MCV 89.0, MCH 28.3, MCHC 31.7 L, RDW Std Deviation 41.7, RDW Coeff of Marleni 12.8, Plt Count 202, MPV 9.9, Immature Gran % (Auto) 0.400, Neut % (Auto) 82.1 H, Lymph % (Auto) 10.5 L, [place] % (Auto) 4.6, Eos % (Auto) 2.2, Baso % (Auto) 0.2, Absolute Neuts (auto) 6.7, Absolute Lymphs (auto) 0.86, Nucleated RBC % 0, Sodium 139, Potassium 3.9, Chloride 105, Carbon Dioxide 29.0, Anion Gap 5, BUN 27 H, Creatinine 0.61, Estim Creat Clear Calc 51.26, Est GFR (MDRD) Af Amer 119, Est GFR (MDRD) Non-Af 98, BUN/Creatinine Ratio 44.2 H, Glucose 157 H, Calcium 9.4, Magnesium 1.9, Triglycerides 91, Cholesterol 186, LDL Cholesterol 98, VLDL Cholesterol 18, HDL Cholesterol 70 05/17/23 06:38: POC Glucose 139 H 05/17/23 11:39: POC Glucose 142 H Micro: Microbiology 05/16/23 12:35 Urine Catheter - Catheter Urine Culture - Preliminary 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 Electronically Signed: Kyle Oates MD at 13:43 EST , Active Medications Active Medications Active Medications: Current Medications Generic Name Dose Route Start Last Admin Trade Name Freq PRN Reason Stop Dose Admin Acetaminophen 650 mg 05/16/23 16:12 Acetaminophen 325 Mg Tablet PO Q6H PRN PRN Pain 1-10 Or Fever >100.7 Albuterol Sulfate 2.5 mg 05/16/23 16:12 Albuterol 2.5 Mg/3 Ml Vial.Neb. INHALATION Q2H PRN PRN SOB/Wheezing Aspirin 81 mg 05/17/23 08:00 05/17/23 09:01 Aspirin 81 Mg Tab.Chew PO 81 mg BREAKFAST CELESTINE Administration Atorvastatin Calcium 40 mg 05/16/23 22:00 05/16/23 20:45 Atorvastatin Calcium 40 Mg Tablet PO 40 mg QHS CELESTINE Administration Dextrose 0 gm 05/16/23 16:12 Dextrose 50%-Water 25 Gm/50 Ml Disp.Syrin IV X1 PRN HYPOGLYCEMIA Protocol Glucagon 1 mg 05/16/23 16:12 Glucagon 1 Mg/Ml Syringe IM X1 PRN HYPOGLYCEMIA Ceftriaxone Sodium 1 gm in 50 mls @ 100 mls/hr 05/17/23 10:00 05/17/23 09:48 Rocephin IV Infused Q24 CELESTINE Infusion Insulin Human Lispro 0 unit 05/16/23 16:12 05/17/23 11:40 Insulin Lispro 100 Unit/Ml Insuln.Pen SC Not Given ACHS [facility] Protocol Levothyroxine Sodium 100 mcg 05/17/23 10:00 05/17/23 09:02 Levothyroxine 100 Mcg Tablet PO 100 mcg DAILY@0600 CELESTINE Administration Melatonin 10 mg 05/16/23 22:00 05/16/23 20:44 Melatonin 10 Mg Tablet PO 10 mg QHS CELESTINE Administration Methenamine Hippurate 1 gm 05/16/23 22:00 05/17/23 09:01 Methenamine Hippurate 1 Gm Tablet PO 1 gm BID CELESTINE Administration Mirtazapine 7.5 mg 05/16/23 22:00 05/16/23 20:45 Mirtazapine 15 Mg Tablet PO 7.5 mg QHS [facility] Administration Nutritional Formula (Lactose Free) 120 ml 05/17/23 14:00 Glucerna Shake 120 Ml Liquid PO 4X/DAY [facility] Ondansetron HCl 4 mg 05/16/23 16:12 Ondansetron 4 Mg/2 Ml Vial IV Q8H PRN PRN NAUSEA/VOMITING Senna/Docusate Sodium 2 tablet 05/16/23 22:00 05/17/23 09:01 Senna/Docusate Sodium 1 Tablet PO 2 tablet BID [facility] Administration Sodium Chloride 10 - 40 ml 05/16/23 16:52 0.9% Saline Lock 10 Ml Syringe IV UD PRN SALINE FLUSH Venlafaxine HCl 37.5 mg 05/17/23 10:00 05/17/23 09:01 Venlafaxine Xr 37.5 Mg Capsule PO 37.5 mg DAILY CELESTINE Administration
[2023-05-17 17:20] LABS: Bedside Glucose 124 mg/dL (74-106)
[2023-05-17] MEDS: MELATONIN 10 MG TABLET PO (21:00)
[2023-05-17] MEDS: Atorvastatin Calcium 40 MG Tablet PO (21:00)
[2023-05-17] MEDS: Mirtazapine 15 MG Tablet 7.5 MG PO (21:01)
[2023-05-17] MEDS: Glucerna Shake 120 ML LIQUID PO (21:03)
[2023-05-17] MEDS: Insulin Lispro 100 UNIT/ML INSULN.PEN SC (21:07)
[2023-05-17 21:33] LABS: Bedside Glucose 165 mg/dL (74-106)
[2023-05-18] VITALS (8 sets, daily range): BP systolic 124–156; BP diastolic 43–114; PULSE 61–71; RESP 14–18; TEMP 36.4–36.8; O2SAT 93–98; BMI 26.6
[2023-05-18] MEDS: Levothyroxine 100 MCG Tablet PO (05:22)
[2023-05-18 07:06] LABS: Bedside Glucose 146 mg/dL (74-106)
[2023-05-18 07:12] LABS: Absolute Lymphocyte Count 1.18 X10^3/uL (0.83-4.51); Absolute Neutrophil Count 4.2 X10^3/uL (2.0-7.7); Basophil# 0.02 X10^3/uL; Basophil% 0.3 % (0-1); Eosinophil# 0.24 X10^3/uL; Eosinophils% 3.9 % (0-5); Hematocrit 37.5 % (37-47); Lymphocyte # 1.18 X10^3/ul (0.83-4.51); Lymphocyte % 19.2 % (19-41); Mean Corpuscular Hgb 28.2 pg (27.0-32.0); Mean Corpuscular Volume 88.2 fL (81-99); Mean Platelet Vol. 9.6 fl (6.2-12.0); Monocyte# 0.51 X10^3/uL; Monocyte% 8.3 % (0-10); NRBC Flagged by Analyzer 0 % (0-5); Neutrophil # 4.16 X10^3/uL (2.7-7.7); Neutrophil % 67.8 % (47-70); Platelet Count 212 K/mm3 (150-450); Red Blood Count 4.25 M/mm3 (4.2-5.4); White Blood Count 6.1 K/mm3 (4.4-11.0)
[2023-05-18 07:38] LABS: Anion Gap 4 (5-15); BUN 29 mg/dL (7-18); BUN/Creat Ratio 49.9 RATIO (10-20); Chloride 107 mmol/L (98-107); Creatinine, Serum 0.58 mg/dL (0.55-1.02); EST Glomerular Filtration Rate 104 mL/min (>60); Est Glom Filt Rate - Afr Amer 126 mL/min (>60); Estimated Creatinine Clearance 51.26 ml/min; Glucose 143 mg/dL (74-106); Potassium 3.5 mmol/L (3.5-5.1); Sodium Level 136 mmol/L (136-145)
--- NOTE | 2023-05-18 08:24 | CT_ITS ---
STUDY: CT BRAIN WITHOUT CONTRAST REASON FOR EXAM: Female, 88 years old. repeat after suspected CVA RADIATION DOSAGE (If Supplied By Facility): CTDIvol = ( 35.23 ) mGy, DLP = ( 2281.46 ) mGycm TECHNIQUE: Transaxial CT imaging of the brain was performed without administration of intravenous contrast material. Individualized dose optimization techniques were used for this CT. COMPARISON: Head CT dated July 18, 2022 FINDINGS: Normal soft tissue structures. Normal calvarium. There is moderate cerebral atrophy with widening of the extra-axial spaces and ventricular dilatation. There are areas of decreased attenuation within the white matter tracts of the supratentorial brain, consistent with microvascular disease changes. There are small punctate calcifications of the basal ganglia which are seen in the aging brain as a normal variant. Normal brainstem. Normal cerebellum. There is no intracranial hemorrhage. There are no findings of an acute ischemic infarction. There is mucoperiosteal inflammatory disease of the paranasal sinuses consistent with mild chronic sinusitis. IMPRESSION: Chronic involutional changes of the brain. STUDY: CTA HEAD AND NECK WITH CONTRAST REASON FOR EXAM: Female, 88 years old. repeat after suspected CVA RADIATION DOSAGE (If Supplied By Facility): CTDIvol = ( 35.23 ) mGy, DLP = ( 2281.46 ) mGycm TECHNIQUE: CT angiography was performed with a multi-detector CT scanner. Data acquisition was obtained from the skull base through the vertex following intravenous administration of IV 100mL [id number]-[id number]. MIP images were reconstructed from the axial data set. Post-processing of the angiographic images was performed, with multiplanar reformation and 3D reconstruction. Individualized dose optimization techniques were used for this CT. 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 Normal bilateral petrous carotid arteries. There is calcified plaque formation of the right cavernous carotid artery, with a moderate stenosis (50-75%). There is calcified plaque formation of the left cavernous carotid artery, with a moderate stenosis (50-75%). Normal right A1 segments of the anterior cerebral artery. Normal left A1 segments of the anterior cerebral artery. Normal intact anterior communicating artery (ACOM). Normal bilateral A2 segments of the anterior cerebral arteries. Normal right M1 and M2 segments of the middle cerebral arteries, with a normal M1 bifurcation. Normal left M1 and M2 segments of the middle cerebral arteries, with a normal M1 bifurcation. Normal right posterior communicating artery (PCOM). Normal left posterior communicating artery (PCOM). Mild calcified atherosclerotic plaque is present in the middle one third aspect and intracranial portion of the left vertebral artery resulting in 50% focal luminal stenosis. Otherwise normal intracranial aspect of the left vertebral artery. Normal right intracranial portion of the vertebral artery. Normal basilar artery with a normal basilar bifurcation. The visualized bilateral superior cerebellar (SCA) arteries are normal. Normal bilateral P1, P2 and visualized P3 segments of the posterior cerebral arteries. NECK AND UPPER CHEST FINDINGS: Large partially occlusive foci of thrombus are present at the most distal aspect of the left main pulmonary artery and extending into the peripheral branches supplying the left upper lobe and lingula. A single nonocclusive embolus is seen and a small peripheral branch of the right pulmonary artery supplying the medial/paratracheal portion of the right upper lobe see image #15/492 series 7. AORTIC ARCH: There is atherosclerotic calcific plaque formation of the aortic arch and great vessels arising from the aortic arch, without a hemodynamically significant stenosis. There is a normal origin of the brachiocephalic, left common carotid, and left subclavian arteries. Normal origins of the brachiocephalic, left common carotid, and left subclavian arteries. RIGHT CAROTID ARTERIES: There is atherosclerotic plaque formation of the common carotid artery, but without a hemodynamically significant stenosis. There is mild atherosclerotic plaque formation with minimal narrowing of the right carotid bulb. Normal origin of the right internal carotid (ICA) artery without a hemodynamically significant stenosis. Normal visualized cervical portion of the right internal carotid artery. Normal origin of the right external carotid artery (ECA). LEFT CAROTID ARTERIES: Normal left common carotid artery (CCA). There is moderate atherosclerotic plaque formation with moderate narrowing of the carotid bulb. There is mild atherosclerotic plaque formation of the origin of the left internal carotid artery with less than 50% cross sectional diameter stenosis. Normal visualized cervical portion of the left internal carotid artery. Normal origin of the left external carotid artery (ECA). VERTEBRAL ARTERIES: Normal bilateral vertebral arteries. CT/CTA Head AND Neck W/ Contrast IMPRESSION: 1. Left pulmonary artery emboli = Large partially occlusive foci of thrombus are present at the most distal aspect of the left main pulmonary artery and extending into the peripheral branches supplying the left upper lobe and lingula 2. Small right upper lobe pulmonary embolus = A single nonocclusive embolus is seen and a small peripheral branch of the right pulmonary artery supplying the medial/paratracheal portion of the right upper lobe see image #15/492 series 7. 3. 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 4. No demonstrated intracranial large artery/large vessel occlusion or thrombus 5. Mild atherosclerotic plaque of the bilateral cervical internal carotid arteries N.B. : The above Results were Read Back by Jorden Mcmanus MD to Roxy Burleson RN, and understanding confirmed on 05/18/2023 10:04:23 (ET). Electronically Signed: Jorden Mcmanus MD at 10:07 EST ,
--- NOTE | 2023-05-18 08:41 | PN.NEURO_ITS ---
Assessment and Plan: Neuro Assessment/Plan ANGE LAZARO is a 88 F with depression, diabetes, hypothyroidism, being evaluated by Teleneurology for R sided weakness. Exam with flaccid RUE and RLE and R facial droop. Per discussion with family, this R side weakness started last March. On review of CTH from this admission, there is left carr raidiata hypodensity/encephalomalcia consistent with old stroke, which was not present on most recent CTH prior to this in June 2022. Her symptoms of R side weakness likely related to this L CR storke, which per history sounds like it happaned last March. Will continue to treat as a stroke with secondary prevention and risk Factor modification. Plan: - MRI brain - continue ASA 81mg - LDL 98, A1C 7.1 - atorvastatin 40mg - PT/OT/ swallow eval - Echo - Goals: SBP <130/80, LDL <70, A1C<7%, healthy life style, no smoking I personally attended this patient and spent a total time of 45 minutes evaluating this patient including clinical assessment, review of chart, medical history imaging, and determining appropriate treatment and workup. Subject: Neurology Subjective No acute events over night. Continues to have R side weakness I talked to friend Chanel (in the room), daughter (over the phone). Per gallo cabrera, patient used to used a walker, was able to walk and maneuver around, but slowly. She went to the hospital in March for being generally weak. Per daughter, while she was at the hospital on April 20 she developed some R side weakness and was not worked up for that. She was still able to move it slightly. She was sent to facility from there, and then PT at the facility said her weakness was getting worse, and thus she was admitted to the hospital again for that. I talked to her friend Chanel in the room. Before patient went to facility, she used to live at home alone, she used a walker, was able to maneuver, but very slow. She was having a lot of falls. NIHSS NIHSS Nursing Documentation NIHSS Nursing Documentation: NIHSS: Ischemic Stroke/TIA Start: 05/16/23 16:12 Text: For PCU Patients: NIH and Neuro Check every 4 Status: Active hours and PRN Freq: [id number] Protocol: Activity Type Activity Date Activity User E-sign Co-sign Detail Recorded Client Recorded Date Recorded By Document 05/18/23 04:55 DERRICK Laptop 05/18/23 04:56 DERRICK 05/18/23 04:55 NIH Stroke Scale [NIHSS] A score of 0 is normal or asymptomatic . Total possible score is 42. Inpatient: RN or Physician to activate a stroke alert for onset of new stroke symptoms or with NIHSS increase >/= 3 points. Following change in neurological status, NIHSS will be performed per physician order or more frequently PRN. -1a. Level of Consciousness Alert; keenly responsive -1b. LOC Questions Answers BOTH questions correctly. -1c. LOC Commands Performs both tasks correctly . -2. Best Gaze Normal -3. Visual Bilateral hemianopia ( blind, including cortical blindness) -4. Facial Palsy Normal symmetrical movements -5a. Left Arm No drift; arm holds 90 (or 45 ) degrees for full 10 seconds -5b. Right Arm No effort against gravity ; arm falls -6a. Left Leg No drift; leg holds 30-degree position for full 5 seconds -6b. Right Leg No effort against gravity ; leg falls to bed immediately -7. Limb Ataxia Present in 2 limbs -8. Sensory Normal; no sensory loss -9. Best Language No aphasia; normal -10. Dysarthria Normal -11. Extinction and Inattention No abnormality -Total 11 Query Text:A score of 0 is normal or asymptomatic. Total possible score is 42 . ED: Notify Physician for NIHSS increase by > / = 3 points. Inpatient: RN or Physician to activate a stroke alert for NIHSS increase of > / = 3 points. Coma Scale [Assess] -Eye Opening Spontaneous -Motor Obeys Commands -Verbal Oriented [Total] -Coma Scale Total 15 EEG Results Procedure Details EEG Procedure Details: ANGE LAZARO is a 88 year old F with a past medical history of , who presents for evaluation of Electroencephalogram on DATE at TIME Objective Data Objective Data Vital Signs: Vital Signs Temp Pulse Resp BP Pulse Ox O2 Del Method 97.9 F 66 14 150/64 H 93 Room Air 05/18/23 04:55 05/18/23 04:55 05/18/23 04:55 05/18/23 04:55 05/18/23 07:22 05/18/23 07:45 Oxygen Delivery Method Room Air Weight: 74.9 kg Body Mass Index (BMI) 26.6 Intake & Output: Intake and Output for Last 24 Hours 05/16/23 05/17/23 05/18/23 23:59 23:59 23:59 Intake Total 530 / 530 1630 / 1630 100 / 100 Output Total 800 / 800 50 / 50 Balance 530 / 530 830 / 830 50 / 50 Lab / Micro Data 05/18/23 06:47 05/18/23 06:47 Labs: Laboratory Results - last 24 hr 05/17/23 11:39: POC Glucose 142 H 05/17/23 16:49: POC Glucose 124 H 05/17/23 21:06: POC Glucose 165 H 05/18/23 06:41: POC Glucose 146 H 05/18/23 06:47: WBC 6.1, RBC 4.25, Hgb 12.0, Hct 37.5, MCV 88.2, MCH 28.2, MCHC 32.0, RDW Std Deviation 42.0, RDW Coeff of Marleni 13.0, Plt Count 212, MPV 9.6, Immature Gran % (Auto) 0.500, Neut % (Auto) 67.8, Lymph % (Auto) 19.2, [place] % (Auto) 8.3, Eos % (Auto) 3.9, Baso % (Auto) 0.3, Absolute Neuts (auto) 4.2, Absolute Lymphs (auto) 1.18, Nucleated RBC % 0, Sodium 136, Potassium 3.5, Chloride 107, Carbon Dioxide 25.0, Anion Gap 4 L, BUN 29 H, Creatinine 0.58, Estim Creat Clear Calc 51.26, Est GFR (MDRD) Af Amer 126, Est GFR (MDRD) Non-Af 104, BUN/Creatinine Ratio 49.9 H, Glucose 143 H, Calcium 10.0 Micro: Microbiology 05/16/23 12:35 Urine Catheter - Catheter 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 Left ventricular systolic function is normal. The estimated ejection fraction is 55 %. Mild focal mitral valve calcification, bileaflet. There is moderate to severe mitral annular calcification. Mild concentric left ventricular hypertrophy. Contrast injection was performed. Ordering Physician: Emelina Johnson Referring Physician: GE FUNK Performed By: Angelita Fu RDCS Physical Exam Neuro Neuro Narrative: Exam performed with help of the nurse/DESIRAE present with patient on Tele site NEURO: Slurred speach, dysarthria R side flaccid Able to move L side
[2023-05-18] MEDS: Venlafaxine XR 37.5 MG Capsule PO (09:29)
[2023-05-18] MEDS: Methenamine Hippurate 1 GM Tablet PO ×2 (09:29→20:41)
[2023-05-18] MEDS: Vibegron 75 MG TABLET PO (09:29)
[2023-05-18] MEDS: Senna/Docusate Sodium 1 Tablet 2 TABLET PO ×2 (09:30→20:41)
[2023-05-18] MEDS: Aspirin 81 MG TAB.CHEW PO (09:30)
[2023-05-18] MEDS: 0.9% Saline Lock 10 ML Syringe IV ×2 (09:30→17:29)
[2023-05-18] MEDS: Ceftriaxone 1 GM/50 ML BAG IV (09:31)
--- NOTE | 2023-05-18 10:50 | VDLE_ITS ---
Reason For Study: Pulmonary embolism RIGHT LEFT GSV is normal. GSV is normal. CFV is compressible, spontaneous, phasic, CFV is compressible, spontaneous, phasic, competent and demonstrates normal competent, and demonstrates normal augmentation. augmentation. FV is compressible, spontaneous, phasic, FV is compressible, spontaneous, phasic, competent and demonstrates normal competent and demonstrates normal augmentation. augmentation. POP V is compressible, spontaneous, phasic, POP V is compressible, spontaneous, phasic, competent and demonstrates normal competent and demonstrates normal augmentation. augmentation. T/P Trunk is compressible. T/P Trunk is compressible. RT PerV is compressible. PTV is compressible. Acute deep vein thrombosis is noted in the LT PerV is compressible. PTV. It is dilated and NONCOMPRESSIBLE. Nonvascularized structure noted in the left Nonvascularized structure noted in the right popliteal fossa that measures 0.79 x 2.11 x popliteal fossa that measures 2.90 x 1.73 x 4.67 cm. 4.07 cm. Procedure This is a venous duplex using B-mode, color flow and spectral Doppler. Exam performed portable in patient room. A preliminary report was called and/or faxed to [facility]. VL/Venous Duplex US - George Extrem Interpretation Summary Acute deep vein thrombosis is noted in the right posterior tibial vein. Deep veins of the left lower extremity are patent and compressible segmentally. There is no evidence of left lower extremity deep vein thrombosis. The bilateral great saphenous vei ns appear patent and compressible segmentally. Nonvascularized structure noted in the right popliteal fossa that measures 2.90 x 1.73 x 4.07 cm. Nonvascularized structure noted in the left popliteal fossa that measures 0.79 x 2.11 x 4.67 cm. Ordering Physician: Yonathan Castro Referring Physician: Da Ocampo Performed By: Ruth Judge RVT
[2023-05-18 12:16] LABS: Bedside Glucose 191 mg/dL (74-106)
[2023-05-18] MEDS: Insulin Lispro 100 UNIT/ML INSULN.PEN SC (12:22)
[2023-05-18 12:36] LABS: Partial Thromboplast Time 28.5 Seconds (24.1-36.2)
--- NOTE | 2023-05-18 13:03 | PN.HOSP_ITS ---
Reason for Visit Reason for Visit: Diagnoses Hypothyroidism, unspecified (05/16/23) Type 2 diabetes mellitus without complications (05/16/23) Urinary tract infection, site not specified (05/16/23) Weakness (05/16/23) Subjective Subjective Saw patient at bedside this morning, no family present. Patient's head of bed was elevated and patient was leaned back in bed and appeared fairly confused and anxious. She denied any acute pain or discomfort. Unable to myrick any other info from patient this morning. Objective Data Objective Data Vital Signs: Vital Signs Temp Pulse Resp BP Pulse Ox O2 Del Method 98.2 F 71 18 156/93 H 95 Room Air 05/18/23 08:55 05/18/23 08:55 05/18/23 08:55 05/18/23 08:55 05/18/23 11:43 05/18/23 08:55 Oxygen Delivery Method Room Air Weight: 74.9 kg Body Mass Index (BMI) 26.6 Intake & Output: Intake and Output for Last 24 Hours 05/16/23 05/17/23 05/18/23 23:59 23:59 23:59 Intake Total 530 / 530 1630 / 1630 350 / 350 Output Total 800 / 800 550 / 550 Balance 530 / 530 830 / 830 -200 / -200 Lab / Micro Data 05/18/23 06:47 05/18/23 06:47 Labs: Laboratory Results - last 24 hr 05/17/23 16:49: POC Glucose 124 H 05/17/23 21:06: POC Glucose 165 H 05/18/23 06:41: POC Glucose 146 H 05/18/23 06:47: WBC 6.1, RBC 4.25, Hgb 12.0, Hct 37.5, MCV 88.2, MCH 28.2, MCHC 32.0, RDW Std Deviation 42.0, RDW Coeff of Marleni 13.0, Plt Count 212, MPV 9.6, Immature Gran % (Auto) 0.500, Neut % (Auto) 67.8, Lymph % (Auto) 19.2, [place] % (Auto) 8.3, Eos % (Auto) 3.9, Baso % (Auto) 0.3, Absolute Neuts (auto) 4.2, Absolute Lymphs (auto) 1.18, Nucleated RBC % 0, Sodium 136, Potassium 3.5, Chloride 107, Carbon Dioxide 25.0, Anion Gap 4 L, BUN 29 H, Creatinine 0.58, Estim Creat Clear Calc 51.26, Est GFR (MDRD) Af Amer 126, Est GFR (MDRD) Non-Af 104, BUN/Creatinine Ratio 49.9 H, Glucose 143 H, Calcium 10.0 05/18/23 11:57: POC Glucose 191 H 05/18/23 12:18: APTT 28.5 Micro: Microbiology 05/16/23 12:35 Urine Catheter - Catheter Urine Culture - Final Escherichia coli Radiography Diagnostic Testing: Radiology Impression Echocardiogram 05/16/23 15:57 Interpretation Summary Normal LV size. Left ventricular systolic function is normal. The estimated ejection fraction is 55 %. Mild focal mitral valve calcification, bileaflet. There is moderate to severe mitral annular calcification. Mild concentric left ventricular hypertrophy. Contrast injection was performed. Ordering Physician: Emelina Johnson Referring Physician: GE FUNK Performed By: Angelita Fu RDCS Head/Neck CTA 05/18/23 08:24 IMPRESSION: 1. Left pulmonary artery emboli = Large partially occlusive foci of thrombus are present at the most distal aspect of the left main pulmonary artery and extending into the peripheral branches supplying the left upper lobe and lingula 2. Small right upper lobe pulmonary embolus = A single nonocclusive embolus is seen and a small peripheral branch of the right pulmonary artery supplying the medial/paratracheal portion of the right upper lobe see image #15/492 series 7. 3. 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 4. No demonstrated intracranial large artery/large vessel occlusion or thrombus 5. Mild atherosclerotic plaque of the bilateral cervical internal carotid arteries N.B. : The above Results were Read Back by Jorden Mcmanus MD to Roxy Burleson RN, and understanding confirmed on 05/18/2023 10:04:23 (ET). Electronically Signed: Jorden Mcmanus MD at 10:07 EST , ADDENDUM: 05/18/23 1014 IMPRESSION: 1. Left pulmonary artery emboli = Large partially occlusive foci of thrombus are present at the most distal aspect of the left main pulmonary artery and extending into the peripheral branches supplying the left upper lobe and lingula 2. Small right upper lobe pulmonary embolus = A single nonocclusive embolus is seen and a small peripheral branch of the right pulmonary artery supplying the medial/paratracheal portion of the right upper lobe see image #15/492 series 7. 3. 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 4. No demonstrated intracranial large artery/large vessel occlusion or thrombus 5. Mild atherosclerotic plaque of the bilateral cervical internal carotid arteries N.B. : The above Results were Read Back by Jorden Mcmanus MD to Roxy Burleson RN, and understanding confirmed on 05/18/2023 10:04:23 (ET). Electronically Signed: Jorden Mcmanus MD at 10:07 EST , Physical Exam Const alert Constitutional Narrative: Confused and mildly anxious. Not consistently making appropriate eye contact, not answering most questions appropriately. Orientation / Consciousness: confused HEENT normocephalic, head/scalp atraumatic and nasal mucous membranes and turbinates normal Eyes PERRL, EOMs intact bilaterally and conjunctivae normal Neck full ROM, no lymphadenopathy and supple Lymph Lymphatic: no lymphadenopathy noted Chest inspection of chest normal Resp normal respiratory effort, normal air movement, no use of accessory muscles and clear to auscultation bilaterally Cardio regular rate, regular rhythm, no murmurs and peripheral pulses 2+ throughout GI normal to inspection, nondistended, normoactive bowel sounds, soft to palpation, non-tender and non-distended Back/Spine normal ROM Extremity normal to inspection and no pedal edema Skin no rashes or lesions noted Neuro Neuro Narrative: Flaccid RUE and RLE. Right facial droop noted. Psych Mood & Affect: anxious Assessment & Plan Assessment/Plan (1) Right sided weakness: (2) UTI (urinary tract infection): PLAN: Plan Patient is an 88-year-old female who presented to [facility] ED on 05/16/2023 from her ECF for right-sided weakness. 1. Worsening right-sided weakness with facial droop Presented w/ flaccid RUE and RLE along with R facial droop on exam. 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 Repeat CTA head/neck on 05/18 per Neuro recs was unchanged. Echo 05/16 with no concerning findings. LDL 98, A1c 7.1%. - Neurology following. Per Neuro, patient's symptoms seem related to old stroke from March 2022 with unclear reason for recrudescence (possibly UTI), but will continue to treat as a stroke for now. Patient initially refusing MRI but is now agreeable, planning for MRI brain/C-spine w/ and w/out contrast on Saturday. Continue ASA 81 mg daily, atorvastatin 40 mg daily. PT/OT/CM following. 2. Acute bilateral PE, low risk CTA head/neck on 05/18 showed large partially occlusive thrombus at most distal aspect of left main pulmonary artery, and also a single nonocclusive embolus in small peripheral branch of right pulmonary artery. Not noted on previous CTA head/neck from 05/16. Patient hemodynamically stable, on room air, asymptomatic. Echo 05/16 showed normal EF, no evidence of right heart strain or pulmonary hypertension. - Suspect new PE's may be secondary to recent immobility. Unfortunately, patient is refusing anticoagulation at this time due to a reported bad experience with a previous anticoagulant (Lovenox?). Is hemodynamically stable on room air as noted above, okay to hold on blood thinner for now. Venous duplex US of b/l LE's ordered. 3. UTI - UA on admit infectious, urine culture 05/16 growing E coli. Patient afebrile, HDS, no leukocytosis or other infectious symptoms noted. Continue ceftriaxone. 4. Intermittent agitation - Seems consistent with a mild degree of hyperactive delirium. Will start low- dose IV Haldol 1 mg q6h as needed for now and assess patient response. 5. DM2 - Holding home metformin. Continue sliding scale insulin while inpatient, adjust as needed. 6. Hypothyroidism - Recent TSH mildly elevated at 5.12. Continue home Synthroid. 7. Constipation - Continue bowel regimen. 8. Anxiety/depression - Continue home meds. DVT prophylaxis: SCDs Code status: DNRCCA, DNI Expected disposition: TBD Total clinical time spent by myself addressing the patient's medical issues, reviewing all the data, and collaborating with patient's care team: 35 minutes. Charges/Coding Visit Charges Inpatient E&M: 86927 Subs Hosp L2
[2023-05-18 17:25] LABS: Bedside Glucose 135 mg/dL (74-106)
[2023-05-18] MEDS: Haloperidol Lactate 5 MG/ML Vial 1 MG IV (17:29)
[2023-05-18] MEDS: Mirtazapine 15 MG Tablet 7.5 MG PO (20:40)
[2023-05-18] MEDS: Atorvastatin Calcium 40 MG Tablet PO (20:41)
[2023-05-18] MEDS: MELATONIN 10 MG TABLET PO (20:41)
[2023-05-18 21:13] LABS: Bedside Glucose 150 mg/dL (74-106)
[2023-05-19] VITALS (8 sets, daily range): BP systolic 119–158; BP diastolic 53–79; PULSE 61–65; RESP 16–18; TEMP 36–36.8; O2SAT 92–97; BMI 26.6
[2023-05-19] MEDS: hydrOXYzine PAM 25 MG Capsule PO ×2 (01:13→21:06)
[2023-05-19] MEDS: Levothyroxine 100 MCG Tablet PO (05:27)
[2023-05-19 06:47] LABS: Bedside Glucose 138 mg/dL (74-106)
[2023-05-19] MEDS: Senna/Docusate Sodium 1 Tablet 2 TABLET PO ×2 (08:55→21:06)
[2023-05-19] MEDS: Aspirin 81 MG TAB.CHEW PO (08:55)
[2023-05-19] MEDS: Vibegron 75 MG TABLET PO (08:55)
[2023-05-19] MEDS: Ceftriaxone 1 GM/50 ML BAG IV (08:56)
[2023-05-19] MEDS: Methenamine Hippurate 1 GM Tablet PO ×2 (08:56→21:06)
[2023-05-19] MEDS: Venlafaxine XR 37.5 MG Capsule PO (08:56)
[2023-05-19] MEDS: Glucerna Shake 120 ML LIQUID PO ×2 (09:01→17:19)
--- NOTE | 2023-05-19 09:18 | NURSING ---
Pt refused MRI of Brain today.
--- NOTE | 2023-05-19 12:06 | PN.HOSP_ITS ---
Reason for Visit Reason for Visit: Diagnoses Hypothyroidism, unspecified (05/16/23) Type 2 diabetes mellitus without complications (05/16/23) Urinary tract infection, site not specified (05/16/23) Weakness (05/16/23) Subjective Subjective No acute events overnight. Per nursing staff, patient slept fairly well and was not agitated. Patient seen at bedside this morning, no family present. Patient was slightly more alert today than yesterday but remained fairly confused. She reported feeling anxious about the MRI tomorrow morning, was unsure again if she wanted to go through with this despite being told she would be given antianxiety medication before hand. She talked about her displeasure with being given a Lovenox shot sometime recently without any prompting regarding anticoagulation. She otherwise denied any pain or discomfort. No other acute concerns this time. Objective Data Objective Data Vital Signs: Vital Signs Temp Pulse Resp BP Pulse Ox O2 Del Method 98.1 F 63 16 146/62 H 97 Room Air 05/19/23 09:00 05/19/23 09:00 05/19/23 09:00 05/19/23 09:00 05/19/23 09:00 05/19/23 09:18 Oxygen Delivery Method Room Air Weight: 74.9 kg Body Mass Index (BMI) 26.6 Intake & Output: Intake and Output for Last 24 Hours 05/17/23 05/18/23 05/19/23 23:59 23:59 23:59 Intake Total 1630 / 1630 550 / 550 100 / 100 Output Total 800 / 800 850 / 850 200 / 200 Balance 830 / 830 -300 / -300 -100 / -100 Lab / Micro Data 05/18/23 06:47 05/18/23 06:47 Labs: Laboratory Results - last 24 hr 05/18/23 11:57: POC Glucose 191 H 05/18/23 12:18: APTT 28.5 05/18/23 16:49: POC Glucose 135 H 05/18/23 20:38: POC Glucose 150 H 05/19/23 06:25: POC Glucose 138 H Micro: Microbiology 05/16/23 12:35 Urine Catheter - Catheter Urine Culture - Final Escherichia coli Physical Exam Const alert Constitutional Narrative: Elderly female, chronically ill-appearing, mildly anxious and confused but sli ghtly more alert than yesterday, answering some questions appropriately. Orientation / Consciousness: confused HEENT normocephalic, head/scalp atraumatic and nasal mucous membranes and turbinates normal Eyes PERRL, EOMs intact bilaterally and conjunctivae normal Neck full ROM, no lymphadenopathy and supple Lymph Lymphatic: no lymphadenopathy noted Chest inspection of chest normal Resp normal respiratory effort, normal air movement, no use of accessory muscles and clear to auscultation bilaterally Cardio regular rate, regular rhythm, no murmurs and peripheral pulses 2+ throughout GI normal to inspection, nondistended, normoactive bowel sounds, soft to palpation, non-tender and non-distended Back/Spine normal ROM Extremity normal to inspection and no pedal edema Skin no rashes or lesions noted Neuro Neuro Narrative: Flaccid RUE and RLE. Right facial droop noted. Sensorium / Orientation: alert Psych Mood & Affect: anxious Assessment & Plan Assessment/Plan (1) Right sided weakness: (2) UTI (urinary tract infection): PLAN: Plan Patient is an 88-year-old female who presented to [facility] ED on 05/16/2023 from her ECF for right-sided weakness. 1. Worsening right-sided weakness with facial droop Presented w/ flaccid RUE and RLE along with R facial droop on exam. 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 Repeat CTA head/neck on 05/18 per Neuro recs was unchanged. Echo 05/16 with no concerning findings. LDL 98, A1c 7.1%. - Neurology following. Per Neuro, patient's symptoms seem related to old stroke from March 2022 with unclear reason for recrudescence (possibly UTI), but will continue to treat as a stroke for now. Patient initially refusing MRI but is now agreeable, planning for MRI brain/C-spine w/ and w/out contrast on Saturday. Can give a dose of IV Haldol and/or hydroxyzine prior to MRI as needed. Continue ASA 81 mg daily, atorvastatin 40 mg daily. PT/OT/CM following. 2. Acute bilateral PE, low risk CTA head/neck on 05/18 showed large partially occlusive thrombus at most distal aspect of left main pulmonary artery, and also a single nonocclusive embolus in small peripheral branch of right pulmonary artery. Not noted on previous CTA head/neck from 05/16. Patient hemodynamically stable, on room air, asymptomatic. Echo 05/16 showed normal EF, no evidence of right heart strain or pulmonary hypertension. - Suspect new PE's may be secondary to recent immobility. Unfortunately, patient is refusing anticoagulation at this time as she reported being given subcu Lovenox without her consent and she was very displeased with this. She notably is hemodynamically stable on room air as noted above, okay to hold on blood thinner for now. Venous duplex ultrasounds of bilateral lower extremities ordered, will likely be completed tomorrow. 3. UTI - UA on admit infectious, urine culture 05/16 growing E coli. Patient afebrile, HDS, no leukocytosis or other infectious symptoms noted. Continue ceftriaxone. 4. Intermittent agitation - Seems consistent with a mild degree of hyperactive delirium. Had only mild relief with IV Haldol 1 mg every 6 hours as needed, added hydroxyzine 25 mg 3 times daily as needed as well with improved relief of agitation. Monitor. 5. DM2 - Holding home metformin. Continue sliding scale insulin while inpatient, adjust as needed. 6. Hypothyroidism - Recent TSH mildly elevated at 5.12. Continue home Synthroid. 7. Constipation - Continue bowel regimen. 8. Anxiety/depression - Continue home meds. DVT prophylaxis: SCDs Code status: DNRCCA, DNI Expected disposition: TBD Total clinical time spent by myself addressing the patient's medical issues, reviewing all the data, and collaborating with patient's care team: 35 minutes. Charges/Coding Visit Charges Inpatient E&M: 61973 Subs Hosp L2
[2023-05-19 12:14] LABS: Bedside Glucose 180 mg/dL (74-106)
[2023-05-19 17:19] LABS: Bedside Glucose 162 mg/dL (74-106)
[2023-05-19] MEDS: Mirtazapine 15 MG Tablet 7.5 MG PO (21:06)
[2023-05-19] MEDS: MELATONIN 10 MG TABLET PO (21:06)
[2023-05-19] MEDS: Atorvastatin Calcium 40 MG Tablet PO (21:06)
[2023-05-19 22:06] LABS: Bedside Glucose 177 mg/dL (74-106)
[2023-05-20] VITALS (8 sets, daily range): BP systolic 127–165; BP diastolic 58–99; PULSE 63–68; RESP 16–17; TEMP 36.3–36.6; O2SAT 96–97; BMI 26.6
[2023-05-20] MEDS: Levothyroxine 100 MCG Tablet PO (05:20)
[2023-05-20 06:30] LABS: Hematocrit 36.7 % (37-47); Mean Corp Hgb Conc 32.7 g/dL (32-36); Mean Corpuscular Hgb 28.8 pg (27.0-32.0); Mean Platelet Vol. 9.5 fl (6.2-12.0); Platelet Count 253 K/mm3 (150-450); RBC Distribution Width CV 12.8 % (11.6-14.6); RBC Distribution Width SD 41.1 fl (35.1-43.9); Red Blood Count 4.17 M/mm3 (4.2-5.4); White Blood Count 4.9 K/mm3 (4.4-11.0)
[2023-05-20 07:03] LABS: Bedside Glucose 140 mg/dL (74-106)
[2023-05-20 07:23] LABS: Anion Gap 2 (5-15); BUN 34 mg/dL (7-18); BUN/Creat Ratio 62.4 RATIO (10-20); Calcium,Total 9.5 mg/dL (8.5-10.1); Chloride 108 mmol/L (98-107); Creatinine, Serum 0.54 mg/dL (0.55-1.02); EST Glomerular Filtration Rate 112 mL/min (>60); Est Glom Filt Rate - Afr Amer 136 mL/min (>60); Estimated Creatinine Clearance 51.26 ml/min; Glucose 152 mg/dL (74-106); Potassium 3.6 mmol/L (3.5-5.1); Sodium Level 140 mmol/L (136-145)
--- NOTE | 2023-05-20 08:23 | PCM.PN.HOSP ---
Subjective Subjective Very anxious about having an MRI. Told nursing that she would need to be asleep for the MRI. She was told before my arrival that she would not be getting sedating agents for the MRI as she is high risk given her advanced age but also we do not have conscious sedation available at this facility. She still continue to perseverate on having the MRI and wondered how fast she could be pulled out from MRI. When she was told would probably be at least a couple minutes before she can actually be pulled out of an MRI after it is stopped if she was not able to perform that, she kept on perseverating on that. Still does have the right-sided weakness. Objective Data Objective Data Vital Signs: Vital Signs Temp Pulse Resp BP Pulse Ox O2 Del Method 36.4 C L 68 16 165/65 H 96 Room Air 05/20/23 05:00 05/20/23 05:00 05/20/23 05:00 05/20/23 05:00 05/20/23 05:00 05/20/23 05:00 Oxygen Delivery Method Room Air Weight: 74.9 kg Body Mass Index (BMI) 26.6 Intake & Output: Intake and Output for Last 24 Hours 05/18/23 05/19/23 05/20/23 23:59 23:59 23:59 Intake Total 550 / 550 540 / 540 Output Total 850 / 850 1550 / 1550 Balance -300 / -300 -1010 / -1010 Lab / Micro Data 05/20/23 06:00 05/20/23 06:00 Labs: Laboratory Results - last 24 hr 05/19/23 11:25: POC Glucose 180 H 05/19/23 16:38: POC Glucose 162 H 05/19/23 21:03: POC Glucose 177 H 05/20/23 06:00: WBC 4.9, RBC 4.17 L, Hgb 12.0, Hct 36.7 L, MCV 88.0, MCH 28.8, MCHC 32.7, RDW Std Deviation 41.1, RDW Coeff of Marleni 12.8, Plt Count 253, MPV 9.5, Sodium 140, Potassium 3.6, Chloride 108 H, Carbon Dioxide 30.0, Anion Gap 2 L, BUN 34 H, Creatinine 0.54 L, Estim Creat Clear Calc 51.26, Est GFR (MDRD) Af Amer 136, Est GFR (MDRD) Non-Af 112, BUN/Creatinine Ratio 62.4 H, Glucose 152 H, Calcium 9.5 05/20/23 06:23: POC Glucose 140 H Micro: Microbiology 05/16/23 12:35 Urine Catheter - Catheter Urine Culture - Final Escherichia coli Physical Exam Const alert and no apparent distress HEENT head/scalp atraumatic and moist oral mucous membranes Resp normal respiratory effort, no retractions, no use of accessory muscles and clear to auscultation bilaterally Cardio regular rate, regular rhythm, S1 normal heart sound and S2 normal heart sound GI normal to inspection, nondistended, normoactive bowel sounds, soft to palpation, non-tender and non-distended Extremity normal to inspection Neuro Neuro Narrative: Muscle strength 0-5 in the right upper and right lower extremity. 5-5 in left upper and left lower extremity. Psych Mood & Affect: anxious Assessment & Plan Assessment/Plan (1) Right sided weakness: (2) UTI (urinary tract infection): PLAN: Plan Worsening right-sided weakness with facial droop Presented w/ flaccid RUE and RLE along with R facial droop on exam. 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 Repeat CTA head/neck on 05/18 per Neuro recs was unchanged. Echo 05/16 with no concerning findings. LDL 98, A1c 7.1%. Per Neuro, patient's symptoms seem related to old stroke from March 2022 with unclear reason for recrudescence (possibly UTI), but will continue to treat as a stroke for now. Patient initially refused MRI and then was open to it but had requirements of being asleep . When she was even told that she would not be knocked out for the procedure, she kept on being focused on how quickly she be pulled out. Reassurance was attempted on several occasions by myself as well as nursing to calm her concerns. These were unsuccessful. Clear to the patient that she just does not rate to have MRI but will we will cancel the MRI and will complete the rest of her stroke workup. If she does decide to try the MRI we can reorder that. Continue ASA 81 mg daily, atorvastatin 40 mg daily. PT/OT/CM following. Acute bilateral PE, low risk CTA head/neck on 05/18 showed large partially occlusive thrombus at most distal aspect of left main pulmonary artery, and also a single nonocclusive embolus in small peripheral branch of right pulmonary artery. Not noted on previous CTA head/neck from 05/16. Patient hemodynamically stable, on room air, asymptomatic. Echo 05/16 showed normal EF, no evidence of right heart strain or pulmonary hypertension. Suspect new PE's may be secondary to recent immobility. Unfortunately, patient is refusing anticoagulation at this time as she reported being given subcu Lovenox without her consent and she was very displeased with this. She notably is hemodynamically stable on room air as noted above, okay to hold on blood thinner for now. Venous duplex ultrasounds of bilateral lower extremities ordered, will likely be completed tomorrow. UTI UA on admit infectious, urine culture 05/16 growing E coli. Continue ceftriaxone though cephalosporins are on her allergy list.. Complicated by numerous medication allergies including FQNs, Sulfa, PCN, cephalosporins. Question if these are actually true allergies. Complicating this is the patient's anxiety and I would be highly suspicious that patient has allergies to all these medications. Chronic conditions: DM2- Holding home metformin. Continue sliding scale insulin while inpatient, adjust as needed. Hypothyroidism- Recent TSH mildly elevated at 5.12. Continue home Synthroid. Constipation- Continue bowel regimen. Anxiety/depression- Continue home meds. DVT prophylaxis: SCDs Code status: DNRCCA, DNI Expected disposition: TBD Greater than 55 minutes of which greater than 50% of time was constipation at at bedside about the MRI, the need for the MRI and eventually explained to her why I am canceling the MRI as she would like likely be able to complete it sufficiently to get an adequate images. Charges/Coding Visit Charges Inpatient E&M: 72121 Subs Hosp L3
[2023-05-20] MEDS: Aspirin 81 MG TAB.CHEW PO (09:31)
[2023-05-20] MEDS: Methenamine Hippurate 1 GM Tablet PO ×2 (09:32→21:07)
[2023-05-20] MEDS: Senna/Docusate Sodium 1 Tablet 2 TABLET PO ×2 (09:32→21:08)
[2023-05-20] MEDS: Vibegron 75 MG TABLET PO (09:32)
[2023-05-20] MEDS: Venlafaxine XR 37.5 MG Capsule PO (09:32)
[2023-05-20] MEDS: Ceftriaxone 1 GM/50 ML BAG IV (09:34)
--- NOTE | 2023-05-20 09:39 | CASEMGMT ---
[facility]charge [facility]. Aleksandra White, Discharge Planning Asst.
[2023-05-20] MEDS: 0.9% Saline Lock 10 ML Syringe IV (10:11)
[2023-05-20 11:57] LABS: Bedside Glucose 162 mg/dL (74-106)
--- NOTE | 2023-05-20 14:25 | MRI_ITS ---
STUDY: MRI CERVICAL SPINE WITHOUT CONTRAST REASON FOR EXAM: Female, 88 years old. right sided weakness TECHNIQUE: Standardized fat and water weighted pulse sequences were obtained in the sagittal and axial planes. COMPARISON: CT of the cervical spine July 05, 2017 FINDINGS: Normal foramen magnum and brainstem-cervical cord junction. Normal craniovertebral junction. Normal anterior atlantoaxial articulation. Normal odontoid process. Normal cervical lordosis. No evidence for acute fracture or subluxation. Probable cyst within the C6 vertebral body. C2-3: Normal endplates. Normal disc height, signal and tiny central disc protrusion Normal central canal and intervertebral neural foramina. C3-4: Grade 1 spondylolisthesis Normal endplates. Normal disc height, signal and small central osteophyte protrusion. Mild narrowing of central canal and impingement upon the ventral surface of the cord. Normal intervertebral neural foramina. C4-5: Narrowed disc space and mild bulging disc osteophyte complex. Mild narrowing the central canal and cord impingement.. Severe bilateral neural foraminal stenosis secondary to disc and bony hypertrophy C5-6: Near complete fusion of C5 and C6 possibly developmental. Normal central canal and moderate bilateral neural foraminal stenosis secondary to bony hypertrophy C6-7: Narrowed disc space and endplate spurring with mild bulging disc osteophyte complex. Mild narrowing of the central canal and impingement upon the cord. Severe bilateral neural foraminal stenosis secondary to disc and bony hypertrophy. C7-T1: Normal endplates. Normal disc height, signal and small central disc protrusion. Normal central canal and intervertebral neural foramina. Normal cervical cord. Normal visualized soft tissue structures. MRI/Spine Cervical (Routine) IMPRESSION: No evidence for acute fracture or subluxation.. Moderate spondylosis and multilevel spinal stenosis secondary to disc disease and bony hypertrophy. Findings as above Electronically Signed: Kota Valiente MD at 19:01 EST ,
--- NOTE | 2023-05-20 14:25 | MRI_ITS ---
We are attempting to reach an attending provider to discuss findings. An addendum with communication details will be sent when the communication is complete. STUDY: MRI BRAIN WITHOUT CONTRAST REASON FOR EXAM: Female, 88 years old. right sided weakness. TECHNIQUE: Standardized multiplanar fat and water weighted pulse sequences were obtained. COMPARISON: Head CT dated May 16, 2023. CTA of the brain dated May 18, 2023 FINDINGS: There is a cluster of small acute infarcts on the gyrus and subcortical white matter in the posterior superior aspect of the left parietal lobe extending into the splenium of the corpus callosum as well as the centrum semiovale white matter just above the left lateral ventricle. The distribution and location of the infarcts is consistent with embolic phenomenon in the small perforating vessels. There is moderate cerebral atrophy with widening of the extra-axial spaces and ventricular dilatation. There are multiple white matter hyperintensities, distributed throughout the deep white matter tracts of the cerebral hemispheres, consistent with moderate chronic white matter ischemic changes. Normal T2* images of the brain without demonstrated susceptibility artifact. There is no demonstrated hemosiderin stain. Normal bilateral basal ganglia. Normal thalami. There is no extra-axial fluid accumulation. Normal flow voids within the major intracranial circulation suggesting patency by spin echo criteria. Normal sella turcica, pituitary gland, infundibular stalk, optic chiasm and hypothalamus. Normal tectal plate and pineal gland. Normal midbrain, robert and medulla. Normal cerebellum. Normal basal cisterns. Normal bilateral temporal bones. Normal bilateral internal auditory canals. No demonstrated orbital abnormality, within the constraints of a routine brain study. There is mucoperiosteal inflammatory disease of the paranasal sinuses consistent with mild chronic sinusitis. Normal calvarium and skull base. Normal visualized soft tissue structures. Normal visualized upper cervical spine. Moderate opacification of the bilateral mastoid air cells is also present. MRI/Brain without Contrast IMPRESSION: 1. There is a cluster of small acute infarcts on the gyrus and subcortical white matter in the posterior superior aspect of the left parietal lobe extending into the splenium of the corpus callosum as well as the centrum semiovale white matter just above the left lateral ventricle. The distribution and location of the infarcts is consistent with embolic phenomenon in the small perforating vessels. Electronically Signed: Jorden Mcmanus MD at 16:01 EST ,
[2023-05-20 17:12] LABS: Bedside Glucose 159 mg/dL (74-106)
[2023-05-20] MEDS: Acetaminophen 325 MG Tablet 650 MG PO (18:01)
[2023-05-20] MEDS: Mirtazapine 15 MG Tablet 7.5 MG PO (21:07)
[2023-05-20] MEDS: Atorvastatin Calcium 40 MG Tablet PO (21:07)
[2023-05-20] MEDS: MELATONIN 10 MG TABLET PO (21:08)
[2023-05-20] MEDS: Glucerna Shake 120 ML LIQUID PO (21:13)
[2023-05-20] MEDS: Menthol/Lanolin/Calamine/Znox 113 GM Tube 1 APPLIC TOPICAL (21:25)
[2023-05-21] VITALS (9 sets, daily range): BP systolic 112–168; BP diastolic 53–116; PULSE 57–63; RESP 14–18; TEMP 35.9–36.9; O2SAT 93–98; BMI 26.6
[2023-05-21 01:19] LABS: Bedside Glucose 207 mg/dL (74-106)
[2023-05-21 06:20] LABS: Absolute Lymphocyte Count 1.91 X10^3/uL (0.83-4.51); Absolute Neutrophil Count 1.8 X10^3/uL (2.0-7.7); Basophil# 0.03 X10^3/uL; Basophil% 0.7 % (0-1); Eosinophil# 0.22 X10^3/uL; Hematocrit 36.6 % (37-47); Hemoglobin 11.6 g/dL (12.0-15.0); Lymphocyte # 1.91 X10^3/ul (0.83-4.51); Lymphocyte % 43.4 % (19-41); Mean Corp Hgb Conc 31.7 g/dL (32-36); Mean Corpuscular Hgb 28.1 pg (27.0-32.0); Mean Corpuscular Volume 88.6 fL (81-99); Mean Platelet Vol. 9.5 fl (6.2-12.0); Monocyte# 0.43 X10^3/uL; Monocyte% 9.8 % (0-10); NRBC Flagged by Analyzer 0 % (0-5); Neutrophil # 1.77 X10^3/uL (2.7-7.7); Neutrophil % 40.2 % (47-70); Platelet Count 258 K/mm3 (150-450); RBC Distribution Width CV 12.9 % (11.6-14.6); RBC Distribution Width SD 41.6 fl (35.1-43.9); Red Blood Count 4.13 M/mm3 (4.2-5.4); White Blood Count 4.4 K/mm3 (4.4-11.0)
[2023-05-21 06:29] LABS: Anion Gap 1 (5-15); BUN 33 mg/dL (7-18); BUN/Creat Ratio 54.8 RATIO (10-20); Calcium,Total 9.4 mg/dL (8.5-10.1); Chloride 107 mmol/L (98-107); EST Glomerular Filtration Rate 100 mL/min (>60); Est Glom Filt Rate - Afr Amer 121 mL/min (>60); Estimated Creatinine Clearance 51.26 ml/min; Glucose 146 mg/dL (74-106); Potassium 3.7 mmol/L (3.5-5.1); Sodium Level 140 mmol/L (136-145)
[2023-05-21] MEDS: Menthol/Lanolin/Calamine/Znox 113 GM Tube 1 APPLIC TOPICAL ×3 (06:35→21:23)
[2023-05-21] MEDS: Levothyroxine 100 MCG Tablet PO (06:36)
[2023-05-21 07:18] LABS: Bedside Glucose 130 mg/dL (74-106)
--- NOTE | 2023-05-21 07:57 | PCM.PN.HOSP ---
Subjective Subjective Still having concerns about blood thinners. Still having difficulty moving her right side. Objective Data Objective Data Vital Signs: Vital Signs Temp Pulse Resp BP Pulse Ox O2 Del Method 35.9 C L 57 L 18 155/74 H 96 Room Air 05/21/23 05:00 05/21/23 05:00 05/21/23 05:00 05/21/23 05:00 05/21/23 05:00 05/21/23 05:00 Oxygen Delivery Method Room Air Weight: 74.9 kg Body Mass Index (BMI) 26.6 Intake & Output: Intake and Output for Last 24 Hours 05/19/23 05/20/23 05/21/23 23:59 23:59 23:59 Intake Total 540 / 540 50 / 250 200 / 200 Output Total 1550 / 1550 300 / 300 Balance -1010 / -1010 -250 / -50 200 / 200 Lab / Micro Data 05/21/23 05:44 05/21/23 05:44 Labs: Laboratory Results - last 24 hr 05/20/23 11:18: POC Glucose 162 H 05/20/23 16:42: POC Glucose 159 H 05/20/23 21:10: POC Glucose 207 H 05/21/23 05:44: WBC 4.4, RBC 4.13 L, Hgb 11.6 L, Hct 36.6 L, MCV 88.6, MCH 28.1, MCHC 31.7 L, RDW Std Deviation 41.6, RDW Coeff of Marleni 12.9, Plt Count 258, MPV 9.5, Immature Gran % (Auto) 0.900, Neut % (Auto) 40.2 L, Lymph % (Auto) 43.4 H, [place] % (Auto) 9.8, Eos % (Auto) 5.0, Baso % (Auto) 0.7, Absolute Neuts (auto) 1.8 L, Absolute Lymphs (auto) 1.91, Nucleated RBC % 0, Sodium 140, Potassium 3.7, Chloride 107, Carbon Dioxide 32.0, Anion Gap 1 L, BUN 33 H, Creatinine 0.60, Estim Creat Clear Calc 51.26, Est GFR (MDRD) Af Amer 121, Est GFR (MDRD) Non-Af 100, BUN/Creatinine Ratio 54.8 H, Glucose 146 H, Calcium 9.4 05/21/23 06:34: POC Glucose 130 H Micro: Microbiology 05/16/23 12:35 Urine Catheter - Catheter Urine Culture - Final Escherichia coli Radiography Diagnostic Testing: Radiology Impression Venous Doppler Study 05/18/23 10:50 Interpretation Summary Acute deep vein thrombosis is noted in the right posterior tibial vein. Deep veins of the left lower extremity are patent and compressible segmentally. There is no evidence of left lower extremity deep vein thrombosis. The bilateral great saphenous veins appear patent and compressible segmentally. Nonvascularized structure noted in the right popliteal fossa that measures 2.90 x 1.73 x 4.07 cm. Nonvascularized structure noted in the left popliteal fossa that measures 0.79 x 2.11 x 4.67 cm. Ordering Physician: Yonathan Castro Referring Physician: Da Ocampo Performed By: Ruth Judge RVT Brain MRI 05/20/23 14:25 IMPRESSION: 1. There is a cluster of small acute infarcts on the gyrus and subcortical white matter in the posterior superior aspect of the left parietal lobe extending into the splenium of the corpus callosum as well as the centrum semiovale white matter just above the left lateral ventricle. The distribution and location of the infarcts is consistent with embolic phenomenon in the small perforating vessels. Electronically Signed: Jorden Mcmanus MD at 16:01 EST , ADDENDUM: 05/20/23 6171 IMPRESSION: 1. There is a cluster of small acute infarcts on the gyrus and subcortical white matter in the posterior superior aspect of the left parietal lobe extending into the splenium of the corpus callosum as well as the centrum semiovale white matter just above the left lateral ventricle. The distribution and location of the infarcts is consistent with embolic phenomenon in the small perforating vessels. N.B. : Davina Salinas RN, confirmed on 05/20/2023 17:20:39 (ET) that the referring physician received the results and does not require a verbal communication. Electronically Signed: Jorden Mcmanus MD at 16:01 EST , Cervical Spine MRI 05/20/23 14:25 IMPRESSION: No evidence for acute fracture or subluxation.. Moderate spondylosis and multilevel spinal stenosis secondary to disc disease and bony hypertrophy. Findings as above Electronically Signed: Kota Valiente MD at 19:01 EST , Physical Exam Const alert and no apparent distress HEENT head/scalp atraumatic and moist oral mucous membranes Resp normal respiratory effort, no retractions, no use of accessory muscles and clear to auscultation bilaterally Cardio regular rate, regular rhythm, S1 normal heart sound and S2 normal heart sound GI normal to inspection, nondistended, normoactive bowel sounds, soft to palpation, non-tender and non-distended Extremity normal to inspection and full ROM Neuro Sensorium / Orientation: awake and alert Assessment & Plan Assessment/Plan (1) Right sided weakness: (2) UTI (urinary tract infection): PLAN: Plan Acute CVA MRI brain showed cluster of small acute infarcts in the gyrus and subcortical white matter of the posterior superior aspect of the left parietal lobe extending into the splenium of the corpus callosum as well as the centrum semiovale white matter. Presented w/ flaccid RUE and RLE along with R facial droop on exam. Continue ASA 81 mg daily, atorvastatin 40 mg daily. PT/OT/CM following. Concerning for embolic presentation. Echo showed an EF 55%, mild LVH. Will need a 30-day event monitor. Acute bilateral PE, CTA head/neck on 05/18 showed large partially occlusive thrombus at most distal aspect of left main pulmonary artery, and also a single nonocclusive embolus in small peripheral branch of right pulmonary artery. Not noted on previous CTA head/neck from 05/16. Patient hemodynamically stable, on room air, asymptomatic. Echo 05/16 showed normal EF, no evidence of right heart strain or pulmonary hypertension. Pt with acute DVT in Right posterior tibial vein. Will start apixaban Cervical stenosis MRI cervical spine showed C4-5 narrowing of the central canal and cord impingement. Severe bilateral neural foraminal stenosis 2/2 disc and bony hypertrophy. Near complete fusion of C5 and C6, possibly developmental. Not a surgical candidate given multiple severe medical comorbidities, poor performance status and advanced age. UTI UA on admit infectious, urine culture 05/16 growing E coli. Continue ceftriaxone though cephalosporins are on her allergy list.. Complicated by numerous medication allergies including FQNs, Sulfa, PCN, cephalosporins. Question if these are actually true allergies. Complicating this is the patient's anxiety and I would be highly suspicious that patient has allergies to all these medications. Chronic conditions: DM2- Holding home metformin. Continue sliding scale insulin while inpatient, adjust as needed. Hypothyroidism- Recent TSH mildly elevated at 5.12. Continue home Synthroid. Constipation- Continue bowel regimen. Anxiety/depression- Continue home meds. DVT prophylaxis: SCDs Code status: DNRCCA, DNI Expected disposition: TBD 05/21: Discussed with the patient that she needs to be on blood thinners to help prevent further blood clots in her legs as well as her lungs. Also concerning that she may have embolic phenomenon causing her strokes which this would also help treat that. She was unwilling to make decision and asked that I speak with her daughter so that her daughter could speak to her and then the patient can decide if she would be okay with anticoagulation. So I did speak with the patient's daughter, Josey, and discussed that with her. Josey did speak with her mother and she did agree to initiating anticoagulation. I did discuss the timing of events and it sounds as though this event happened about a month ago and family has been evaluated. So the risk for intracranial hemorrhage is low so we will initiate apixaban. Greater than 55 minutes of which greater than 50% of the time was discussing with the patient about anticoagulation goals of care and as well as discussing with patient's daughter. Charges/Coding Visit Charges Inpatient E&M: 36523 Subs Hosp L3
[2023-05-21] MEDS: Vibegron 75 MG TABLET PO (09:16)
[2023-05-21] MEDS: Venlafaxine XR 37.5 MG Capsule PO (09:16)
[2023-05-21] MEDS: Aspirin 81 MG TAB.CHEW PO (09:16)
[2023-05-21] MEDS: Senna/Docusate Sodium 1 Tablet 2 TABLET PO ×2 (09:17→21:22)
[2023-05-21] MEDS: Methenamine Hippurate 1 GM Tablet PO ×2 (09:17→21:22)
[2023-05-21] MEDS: Ceftriaxone 1 GM/50 ML BAG IV (09:26)
--- NOTE | 2023-05-21 10:15 | CASEMGMT ---
IRINA sent updates to [facility]. Patient will be skilled when she returns to [facility]. Plan: d/c back to [facility] under skilled level of care. Clara DONALDSON
[2023-05-21] MEDS: Insulin Lispro 100 UNIT/ML INSULN.PEN SC ×2 (10:54→16:39)
[2023-05-21 11:35] LABS: Bedside Glucose 215 mg/dL (74-106)
[2023-05-21] MEDS: APIXABAN 5 MG TABLET 10 MG PO ×2 (13:56→22:26)
[2023-05-21 16:36] LABS: Bedside Glucose 212 mg/dL (74-106)
--- NOTE | 2023-05-21 16:59 | CASEMGMT ---
Social Work SW introduced self and role to patient. SW explained PHQ-9 and patient agrees to answer questions. Patient reports feeling down, difficulty sleeping at times, and lack of interest/lack of ability to do activities. 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 Pt reports she is unable to read, watch tv or do hobbies. SW offered some options for the visually impaired. Pt reports it is too difficult and she is pain often. Pt denies any thoughts of wanting to harm herself or being suicidal. SW provided emotional support. Pt declines any resources. Jessy Villarreal ORDER SELECTOR, MEDICAL LIBRARY ASSISTANT
[2023-05-21] MEDS: Glucerna Shake 120 ML LIQUID PO (21:21)
[2023-05-21] MEDS: Atorvastatin Calcium 40 MG Tablet PO (21:22)
[2023-05-21] MEDS: Mirtazapine 15 MG Tablet 7.5 MG PO (21:22)
[2023-05-21] MEDS: MELATONIN 10 MG TABLET PO (21:22)
[2023-05-21 21:58] LABS: Bedside Glucose 169 mg/dL (74-106)
[2023-05-22 01:00] VITALS: BP 128/56; PULSE 58; RESP 18; TEMP 35.7; O2SAT 94
[2023-05-22] MEDS: Levothyroxine 100 MCG Tablet PO (04:26)
[2023-05-22] MEDS: Menthol/Lanolin/Calamine/Znox 113 GM Tube 1 APPLIC TOPICAL (04:26)
[2023-05-22 04:30] VITALS: BP 150/65; PULSE 57; RESP 18; TEMP 36.3; O2SAT 94
--- NOTE | 2023-05-22 07:36 | PN.HOSP_ITS ---
Subjective Subjective Still concerned about the enoxaparin causing her stroke despite being informed on numerous occasions that was more coincidental. Still concerned about the medications. Objective Data Objective Data Vital Signs: Vital Signs Temp Pulse Resp BP Pulse Ox O2 Del Method 36.3 C L 57 L 18 150/65 H 94 Room Air 05/22/23 04:30 05/22/23 04:30 05/22/23 04:30 05/22/23 04:30 05/22/23 04:30 05/22/23 04:30 Oxygen Delivery Method Room Air Weight: 74.9 kg Body Mass Index (BMI) 26.6 Intake & Output: Intake and Output for Last 24 Hours 05/20/23 05/21/23 05/22/23 23:59 23:59 23:59 Intake Total 50 / 250 750 / 950 320 / 320 Output Total 300 / 300 Balance -250 / -50 750 / 950 320 / 320 Lab / Micro Data 05/21/23 05:44 05/21/23 05:44 Labs: Laboratory Results - last 24 hr 05/21/23 10:51: POC Glucose 215 H 05/21/23 16:07: POC Glucose 212 H 05/21/23 21:26: POC Glucose 169 H Micro: Microbiology 05/16/23 12:35 Urine Catheter - Catheter Urine Culture - Final Escherichia coli Physical Exam Const alert Constitutional Narrative: Anxious. Afebrile. 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 Diminished sensation on the right side. Assessment & Plan Assessment/Plan (1) Right sided weakness: (2) UTI (urinary tract infection): PLAN: Plan Acute CVA * MRI brain showed cluster of small acute infarcts in the gyrus and subcortical white matter of the posterior superior aspect of the left parietal lobe extend ing into the splenium of the corpus callosum as well as the centrum semiovale white matter. * Presented w/ flaccid RUE and RLE along with R facial droop on exam. * Continue ASA 81 mg daily, atorvastatin 40 mg daily. PT/OT/CM following. * Concerning for embolic presentation. Echo showed an EF 55%, mild LVH. * Will need a 30-day event monitor. Acute bilateral PE, * CTA head/neck on 05/18 showed large partially occlusive thrombus at most distal aspect of left main pulmonary artery, and also a single nonocclusive embolus in small peripheral branch of right pulmonary artery. Not noted on previous CTA head/neck from 05/16. Patient hemodynamically stable, on room air, asymptomatic. Echo 05/16 showed normal EF, no evidence of right heart strain or pulmonary hypertension. * Pt with acute DVT in Right posterior tibial vein. * Will start apixaban. Plan would be to treat for at least 6 months. Cervical stenosis * MRI cervical spine showed C4-5 narrowing of the central canal and cord impingement. Severe bilateral neural foraminal stenosis 2/2 disc and bony hypertrophy. Near complete fusion of C5 and C6, possibly developmental. * Not a surgical candidate given multiple severe medical comorbidities, poor performance status and advanced age. UTI * UA on admit infectious, urine culture 05/16 growing E coli. * Continue ceftriaxone though cephalosporins are on her allergy list.. Complicated by numerous medication allergies including FQNs, Sulfa, PCN, cephalosporins. Question if these are actually true allergies. Complicating this is the patient's anxiety and I would be highly suspicious that patient has allergies to all these medications. * Patient has completed a 6-day course of ceftriaxone. Will discontinue antibiotics. Chronic conditions: * DM2- Holding home metformin. Continue sliding scale insulin while inpatient, adjust as needed. * Hypothyroidism- Recent TSH mildly elevated at 5.12. Continue home Synthroid. * Constipation- Continue bowel regimen. * Anxiety/depression- Continue home meds. DVT prophylaxis: SCDs Code status: DNRCCA, DNI Expected disposition: TBD 05/21: Discussed with the patient that she needs to be on blood thinners to help prevent further blood clots in her legs as well as her lungs. Also concerning that she may have embolic phenomenon causing her strokes which this would also help treat that. She was unwilling to make decision and asked that I speak with her daughter so that her daughter could speak to her and then the patient can decide if she would be okay with anticoagulation. So I did speak with the patient's daughter, Josey, and discussed that with her. Josey did speak with her mother and she did agree to initiating anticoagulation. I did discuss the timing of events and it sounds as though this event happened about a month ago and family has been evaluated. So the risk for intracranial hemorrhage is low so we will initiate apixaban. 05/22: Again had to discuss with the patient about the quit central nature of the Lovenox being given and her stroke. Told her that physiologically that would not be possible as it being an anticoagulant and these are clots. Did remind her of the indication for the Eliquis being for her pulmonary embolism and DVT. Additionally if she does have embolic phenomenon of her stroke, which this is concerning for, that the Eliquis could also be the treatment for that as well. She stated that she was not sure about doing therapy. Discussed with her what her goals are and she confirmed that her goals are to get better. I told her that if that is her goals and she should take the medication to help prevent further blood clots and as well as doing therapy to get stronger to try to be independent again. I did also expressed that it is going to be difficult road ahead because of her dense hemiparesis but she would need but for the effort to get stronger. Did tell her that if she is not getting better with time, then she will need to have a discussion with her daughters about her goals of care at that time.
[2023-05-22 08:17] VITALS: BP 146/88; PULSE 62; RESP 16; TEMP 36.6; O2SAT 99
[2023-05-22] MEDS: Aspirin 81 MG TAB.CHEW PO (08:20)
[2023-05-22] MEDS: Senna/Docusate Sodium 1 Tablet 2 TABLET PO (08:20)
[2023-05-22] MEDS: Vibegron 75 MG TABLET PO (08:20)
[2023-05-22] MEDS: Venlafaxine XR 37.5 MG Capsule PO (08:20)
[2023-05-22] MEDS: APIXABAN 5 MG TABLET 10 MG PO (08:21)
[2023-05-22] MEDS: Methenamine Hippurate 1 GM Tablet PO (08:21)
[2023-05-22] MEDS: Glucerna Shake 120 ML LIQUID PO (08:23)
[2023-05-22] MEDS: Ceftriaxone 1 GM/50 ML BAG IV (08:24)
[2023-05-22 09:45] LABS: Bedside Glucose 131 mg/dL (74-106)
--- NOTE | 2023-05-22 10:40 | TREXTCAR_ITS ---
Diet Diet Order/Speech Therapy: 05/16/23 16:12 Diet: Regular - General Food consistency:: Regular Liquid Consistency:: Regular/Thin Routine Orders/Code Status Code Status: DNRCC-A (no intubation) Wound(s) bilateral buttock: Wound Type: Pressure Injury perineum: Wound Type: blister Therapies Weight Bearing: Full weight bearing Extremity Affected:: Right Lower and Right Upper Physical Therapy: Eval and Treat Occupational Therapy: Eval and Treat Problem/Diagnosis (1) Right sided weakness: Status: Acute Code(s): R53.1 - Weakness (2) UTI (urinary tract infection): Status: Acute Code(s): N39.0 - Urinary tract infection, site not specified Plan Acute CVA * MRI brain showed cluster of small acute infarcts in the gyrus and subcortical white matter of the posterior superior aspect of the left parietal lobe extending into the splenium of the corpus callosum as well as the centrum semiovale white matter. * Presented w/ flaccid RUE and RLE along with R facial droop on exam. * Continue ASA 81 mg daily, atorvastatin 40 mg daily. PT/OT/CM following. * Concerning for embolic presentation. Echo showed an EF 55%, mild LVH. * Will need a 30-day event monitor. Acute bilateral PE, * CTA head/neck on 05/18 showed large partially occlusive thrombus at most distal aspect of left main pulmonary artery, and also a single nonocclusive embolus in small peripheral branch of right pulmonary artery. Not noted on previous CTA head/neck from 05/16. Patient hemodynamically stable, on room air, asymptomatic. Echo 05/16 showed normal EF, no evidence of right heart strain or pulmonary hypertension. * Pt with acute DVT in Right posterior tibial vein. * Will start apixaban. Plan would be to treat for at least 6 months. Cervical stenosis * MRI cervical spine showed C4-5 narrowing of the central canal and cord impingement. Severe bilateral neural foraminal stenosis 2/2 disc and bony hypertrophy. Near complete fusion of C5 and C6, possibly developmental. * Not a surgical candidate given multiple severe medical comorbidities, poor performance status and advanced age. UTI * UA on admit infectious, urine culture 05/16 growing E coli. * Continue ceftriaxone though cephalosporins are on her allergy list.. Complicated by numerous medication allergies including FQNs, Sulfa, PCN, cephalosporins. Question if these are actually true allergies. Complicating this is the patient's anxiety and I would be highly suspicious that patient has allergies to all these medications. * Patient has completed a 6-day course of ceftriaxone. Will discontinue antibiotics. Chronic conditions: * DM2- Holding home metformin. Continue sliding scale insulin while inpatient, adjust as needed. * Hypothyroidism- Recent TSH mildly elevated at 5.12. Continue home Synthroid. * Constipation- Continue bowel regimen. * Anxiety/depression- Continue home meds. DVT prophylaxis: SCDs Code status: DNRCCA, DNI Expected disposition: TBD 05/21: Discussed with the patient that she needs to be on blood thinners to help prevent further blood clots in her legs as well as her lungs. Also concerning that she may have embolic phenomenon causing her strokes which this would also help treat that. She was unwilling to make decision and asked that I speak with her daughter so that her daughter could speak to her and then the patient can decide if she would be okay with anticoagulation. So I did speak with the patient's daughter, Josey, and discussed that with her. Josey did speak with her mother and she did agree to initiating anticoagulation. I did discuss the timing of events and it sounds as though this event happened about a month ago and family has been evaluated. So the risk for intracranial hemorrhage is low so we will initiate apixaban. 05/22: Again had to discuss with the patient about the quit central nature of the Lovenox being given and her stroke. Told her that physiologically that would not be possible as it being an anticoagulant and these are clots. Did remind her of the indication for the Eliquis being for her pulmonary embolism and DVT. Additionally if she does have embolic phenomenon of her stroke, which this is concerning for, that the Eliquis could also be the treatment for that as well. She stated that she was not sure about doing therapy. Discussed with her what her goals are and she confirmed that her goals are to get better. I told her that if that is her goals and she should take the medication to help prevent further blood clots and as well as doing therapy to get stronger to try to be independent again. I did also expressed that it is going to be difficult road ahead because of her dense hemiparesis but she would need but for the effort to get stronger. Did tell her that if she is not getting better with time, then she will need to have a discussion with her daughters about her goals of care at that time. Allergies/Procedures Done in Hospital Allergies amoxicillin [From Augmentin] Allergy (Verified 05/16/23 11:56) Itching cefdinir Allergy (Verified 05/16/23 11:56) Rash ciprofloxacin [From Cipro] Allergy (Verified 05/16/23 11:56) Swelling clavulanic acid [From Augmentin] Allergy (Verified 05/16/23 11:56) Itching doxycycline calcium [From Vibramycin] Allergy (Verified 05/16/23 11:56) Unknown doxycycline hyclate [From Vibramycin] Allergy (Verified 04/18/23 00:49) Unknown doxycycline monohydrate [From Vibramycin] Allergy (Verified 05/16/23 11:56) Unknown fluticasone Allergy (Verified 05/16/23 11:56) Unknown influenza virus vaccine, specific [Influenza Virus Vacc,Specific] Allergy (Verified 05/16/23 11:56) Swelling losartan Allergy (Verified 05/16/23 11:56) Angioedema pneumococcal vaccine [Pneumococcal Vaccine] Allergy (Verified 05/16/23 11:56) Rash promethazine HCl [From Phenergan] Allergy (Verified 05/16/23 11:56) Unknown tetracycline [Tetracycline] Allergy (Verified 05/16/23 11:56) Unknown cephalexin [From Keflex] Adverse Reaction (Verified 05/16/23 11:56) Rash metronidazole [From Flagyl] Adverse Reaction (Verified 05/16/23 11:56) Unknown sulfamethoxazole [From Bactrim] Adverse Reaction (Verified 05/16/23 11:56) Rash trimethoprim [From Bactrim] Adverse Reaction (Verified 05/16/23 11:56) Rash Type of Care/Length of Stay Estimated LOS: More Than 30 Days Type of Care Needed: Skilled Rehab Potential: Fair Prognosis: Fair Additional Orders/Day of Discharge Day of Discharge: 05/22/23 Dietary and Speech Recommendations Dietitian Recommendations/Changes: continue regular diet given risk for malnutrition; will offer 120mL glucerna 4x/day w/ medpass for additional nutrition if consumed Discharge Plan Admission Admit Date/Time: 05/16/23 15:36 Primary Reason for Your Visit: CVA. Attending Provider: Hugo Hamilton Primary Care Provider: Da Ocampo Consulting Providers: Campbell Pereira; Jamison Mills; Krupa Rivera; Zoraida Rivas; Suzanne Jackson; Kevin Bills; Anne Doe; Neil Liao; Glen Mcallister; Pippa Mcdowell; Hakan Bright; Melanie Fregoso; Sarwat Thacker; Mona Vigil; Kole Scott; Brittney Pro; Ludwin Pruitt; Tatyana Raman; Stone Reilly; Emelina Johnson; Mike Stearns; Yonathan Castro Discharge Orders/Prescriptions Prescriptions: New atorvastatin 40 mg Tablet 40 mg PO QHS Qty: 0 0RF acetaminophen 325 mg Tablet 1,000 mg PO Q6H PRN PRN (Reason: Pain 1-10 Or Fever >100.7) Qty: 0 0RF aspirin 81 mg Tablet,Chewable 81 mg PO BREAKFAST Qty: 0 0RF Glucerna 1.2 Walter 0.06-1.2 gram-kcal/mL Liquid 120 ml PO 4X/DAY Qty: 0 0RF melatonin 10 mg Tablet, Sublingual 10 mg PO QHS Qty: 0 0RF apixaban 5 mg tablet 5 mg PO BID Qty: 60 0RF Rx Instructions: 2 tablets twice daily for 5 days, then 1 tablet twice daily. Continued PreserVision AREDS-2 1 EACH capsule 1,000 mg PO DAILY diphenhydramine HCl 25 MG capsule 12.5 mg PO QHS PRN (Reason: Insomnia) methenamine mandelate 1 gram tablet 1 g PO BID hydrochlorothiazide 25 mg tablet 25 mg PO DAILY menthol-zinc oxide [Calmoseptine] 0.44-20.6 % ointment 1 applic topical BID Protocol: *Topical Application Instructions APPLICATION INSTRUCTIONS: coccyx Rx Instructions: APPLY TO COCCYX Gemtesa 75 mg tablet 75 mg PO DAILY desvenlafaxine succinate 50 mg tablet extended release 24 hr 50 mg PO Q24H ascorbic acid (vitamin C) [Vitamin C] 500 mg capsule, extended release 1,000 mg PO DAILY carboxymethylcellulose sodium [Refresh Tears] 0.5 % drops 1 drp EACH EYE QHS levothyroxine 100 mcg tablet 100 mcg PO DAILY polyethylene glycol 3350 [Miralax] 17 gram/dose powder 17 g PO DAILY potassium chloride 20 mEq tablet extended release 20 meq PO DAILY magnesium hydroxide [Milk of Magnesia] 400 mg/5 mL suspension 30 ml PO DAILY PRN (Reason: constipation) mirtazapine 15 mg tablet 7.5 mg PO QHS Patient Comments: MAR STATES THAT STRENGTH IS 15MG, AND DOSE IS 7.5MG Held metformin 500 MG tablet 500 mg PO TIDCM Hold Instructions: Resume on 05/23/23. Discontinued nystatin-triamcinolone 100,000-0.1 unit/gram-% ointment 1 applic TOPICAL BID PRN Patient Comments: Apply sparingly to perineum twice daily for irritation/infection. acetaminophen 325 mg tablet 650 mg PO Q4H PRN (Reason: pain) Referrals / Follow Up: Da Ocampo MD [Primary Care Provider] - Within 2 Weeks Disposition Disposition (needs filled in before D/C Order can be placed): [facility]
[2023-05-22 10:49] VITALS: BP 121/73; PULSE 65; RESP 16; TEMP 37.1; O2SAT 97
--- NOTE | 2023-05-22 10:50 | DS.PCM_ITS ---
Providers Date of Admission: 05/16/23 Primary Care Physician: Dr. Da Ocampo MD Consultations 05/16/23 16:12 Neurology [Consult: Tele-Neurology] Routine Consulting Provider: [facility] Reason for Consult: Right sided weakness worsened over 48 hrs but present for weeks or years? EMERGENT Consult: No MD Notified: Yes Date Notified: 05/16/23 Time Notified: 16:29 Method of Notification: Answering Service Comments:: no stroke on CT scan, pt refuses MRI Nursing Unit Staff Notify [facility] of Tele-Neurology Consult: Yes Reason For Visit: WEAKNESS Diagnosis Discharge Diagnosis (1) Right sided weakness: Status: Acute Code(s): R53.1 - Weakness (2) UTI (urinary tract infection): Status: Acute Code(s): N39.0 - Urinary tract infection, site not specified Plan Acute CVA * MRI brain showed cluster of small acute infarcts in the gyrus and subcortical white matter of the posterior superior aspect of the left parietal lobe extending into the splenium of the corpus callosum as well as the centrum semiovale white matter. * Presented w/ flaccid RUE and RLE along with R facial droop on exam. * Continue ASA 81 mg daily, atorvastatin 40 mg daily. PT/OT/CM following. * Concerning for embolic presentation. Echo showed an EF 55%, mild LVH. * Will need a 30-day event monitor. Acute bilateral PE, * CTA head/neck on 05/18 showed large partially occlusive thrombus at most distal aspect of left main pulmonary artery, and also a single nonocclusive embolus in small peripheral branch of right pulmonary artery. Not noted on previous CTA head/neck from 05/16. Patient hemodynamically stable, on room air, asymptomatic. Echo 05/16 showed normal EF, no evidence of right heart strain or pulmonary hypertension. * Pt with acute DVT in Right posterior tibial vein. * Will start apixaban. Plan would be to treat for at least 6 months. Cervical stenosis * MRI cervical spine showed C4-5 narrowing of the central canal and cord impingement. Severe bilateral neural foraminal stenosis 2/2 disc and bony hypertrophy. Near complete fusion of C5 and C6, possibly developmental. * Not a surgical candidate given multiple severe medical comorbidities, poor performance status and advanced age. UTI * UA on admit infectious, urine culture 05/16 growing E coli. * Continue ceftriaxone though cephalosporins are on her allergy list.. Complicated by numerous medication allergies including FQNs, Sulfa, PCN, cephalosporins. Question if these are actually true allergies. Complicating this is the patient's anxiety and I would be highly suspicious that patient has allergies to all these medications. * Patient has completed a 6-day course of ceftriaxone. Will discontinue antibiotics. Chronic conditions: * DM2- Holding home metformin. Continue sliding scale insulin while inpatient, adjust as needed. * Hypothyroidism- Recent TSH mildly elevated at 5.12. Continue home Synthroid. * Constipation- Continue bowel regimen. * Anxiety/depression- Continue home meds. DVT prophylaxis: SCDs Code status: DNRCCA, DNI Expected disposition: TBD 05/21: Discussed with the patient that she needs to be on blood thinners to help prevent further blood clots in her legs as well as her lungs. Also concerning that she may have embolic phenomenon causing her strokes which this would also help treat that. She was unwilling to make decision and asked that I speak with her daughter so that her daughter could speak to her and then the patient can decide if she would be okay with anticoagulation. So I did speak with the patient's daughter, Josey, and discussed that with her. Josey did speak with her mother and she did agree to initiating anticoagulation. I did discuss the timing of events and it sounds as though this event happened about a month ago and family has been evaluated. So the risk for intracranial hemorrhage is low so we will initiate apixaban. 05/22: Again had to discuss with the patient about the quit central nature of the Lovenox being given and her stroke. Told her that physiologically that would not be possible as it being an anticoagulant and these are clots. Did remind her of the indication for the Eliquis being for her pulmonary embolism and DVT. Additionally if she does have embolic phenomenon of her stroke, which this is concerning for, that the Eliquis could also be the treatment for that as well. She stated that she was not sure about doing therapy. Discussed with her what her goals are and she confirmed that her goals are to get better. I told her that if that is her goals and she should take the medication to help prevent further blood clots and as well as doing therapy to get stronger to try to be independent again. I did also expressed that it is going to be difficult road ahead because of her dense hemiparesis but she would need but for the effort to get stronger. Did tell her that if she is not getting better with time, then she will need to have a discussion with her daughters about her goals of care at that time. Medications at Discharge Home Medications metformin 500 mg tablet 500 mg PO TIDCM blood sugar 12/10/13 vit C 250 mg-vit E 90 mg-zinc 40 mg-copper 1 [id number] capsule (PreserVision AREDS-2) 1,000 mg PO DAILY multivitamin 04/22/14 diphenhydramine HCl 25 mg capsule 12.5 mg PO QHS PRN Insomnia 11/09/18 methenamine mandelate 1 gram tablet 1 g PO BID URINATION 03/03/21 hydrochlorothiazide 25 mg tablet 25 mg PO DAILY BLOOD PRESSURE 03/24/22 menthol 0.44 %-zinc oxide 20.6 % topical ointment (Calmoseptine) 1 applic topical BID SKIN IRITATION 03/24/22 ascorbic acid (vitamin C) 500 mg capsule,extended release (Vitamin C) 1,000 mg PO DAILY 04/18/23 carboxymethylcellulose sodium 0.5 % eye drops (Refresh Tears) 1 drp EACH EYE QHS EYE IRRITATION 04/18/23 desvenlafaxine succinate 50 mg tablet,extended release 24 hr 50 mg PO Q24H 04/18/23 vibegron 75 mg tablet (Gemtesa) 75 mg PO DAILY 04/18/23 levothyroxine 100 mcg tablet 100 mcg PO DAILY THYROID 05/16/23 magnesium hydroxide 400 mg/5 mL oral suspension (Milk of Magnesia) 30 ml PO DAILY PRN constipation 05/16/23 mirtazapine 15 mg tablet 7.5 mg PO QHS MAJOR DEPRESSIVE DISORDER 05/16/23 polyethylene glycol 3350 17 gram/dose oral powder (Miralax) 17 g PO DAILY CONSTIPATION 05/16/23 potassium chloride 20 mEq tablet,extended release 20 meq PO DAILY POTASSIUM 05/16/23 acetaminophen 325 mg tablet 1,000 mg (3.0769 x 325 mg) PO Q6H PRN PRN Pain 1-10 Or Fever >100.7 #0 tabs 05/22/23 apixaban 5 mg tablet 5 mg PO BID #60 tabs 05/22/23 aspirin 81 mg chewable tablet 81 mg PO BREAKFAST #0 tabs 05/22/23 atorvastatin 40 mg tablet 40 mg PO QHS #0 tabs 05/22/23 melatonin 10 mg sublingual tablet 10 mg PO QHS #0 tabs 05/22/23 nutrition tx glu intol,lac-free,soy-fiber 0.06 gram-1.2 kcal/mL liquid (Glucerna 1.2 Walter) 120 ml PO 4X/DAY #0 mL 05/22/23 Hospital Course Operations None Procedures 2-D Echocardiogram Summary of Care Provided Minutes Spent on Discharge: 45 Hospital Course: Patient had delayed presentation of right-sided weakness. Patient had dense right-sided hemiparesis. Essentially patient was found to have what appeared to be left-sided embolic strokes. No evidence of any atrial fibrillation. But while having her CTA of her head and neck it was noted that she did have a pulmonary embolism and her lungs. Duplex also confirmed that she had a right lower extremity DVT. Eventually, after lengthy conversations with the patient and her family, patient did have the MRI that did show strokes. Patient had profound anxiety about undergoing an MRI given past history. Patient was also required a lot of reassurance and did have to have her daughter talk to her about being started on Eliquis for the PE and DVT. She continues to still have apprehension about the medication but it is all anxiety based. Patient blames being given a dose of Lovenox as a cause of her stroke. Told her that this physiologically impossible and if that did occur while she was getting Lovenox it would be more coincidental than causative. Patient still apprehensive but did have a very lengthy conversation with her about her goals of care and she does state that she does want to get better so she will need to go to therapy to get stronger and I did tell her that this is going to be a very long process for her to get her strength back. It is unclear to me how engaged patient will be into getting therapy but hopefully with continued reassurance that she will engage with them. Weight / BMI Weight Weight: 74.9 kg Body Mass Index (BMI) 26.6 ABG / Lab / Microbiology Data 05/21/23 05:44 05/21/23 05:44 Laboratory: Laboratory Results - last 24 hr 05/21/23 10:51: POC Glucose 215 H 05/21/23 16:07: POC Glucose 212 H 05/21/23 21:26: POC Glucose 169 H 05/22/23 06:22: POC Glucose 131 H Microbiology: Microbiology 05/16/23 12:35 Urine Catheter - Catheter Urine Culture - Final Escherichia coli D/C Instructions Discharge Diet: Low fat / Low cholesterol Meaningful Use Info Meaningful Use Diagnoses (Choose all that apply): Ischemic CVA CVA Therapy Assessed for PT,OT and/or ST?: Yes Ischemic Stroke Antithrombotic order at d/c?: No Reason antithrombotic not ordered: Treatment not Indicated Dx of Atrial fib/flutter?: No Anticoagulant at discharge?: Yes Statins at discharge?: Yes Primary Dx Acute Ischemic CVA?: Yes IV thrombolytic ordered during stay?: No Reason IV thrombolytic not ordered: Treatment not Indicated Discharge Plan Admission Admit Date/Time: 05/16/23 15:36 Primary Reason for Your Visit: CVA. Attending Provider: Hugo Hamilton Primary Care Provider: Da Ocampo Consulting Providers: Campbell Pereira; Jamison Mills; Krupa Rivera; Zoraida Rivas; Suzanne Jackson; Kevin Bills; Anne Doe; Neil Liao; Glen Mcallister; Beverly Mcdowell; Hakan Bright; Melanie Fregoso; Sarwat Thacker; Mona Vigil; Kole Scott; Brittney Pro; Ludwin Pruitt; Tatyana Raman; Stone Reilly; Emelina Johnson; Mike Stearns; Yonathan Castro Discharge Orders/Prescriptions Prescriptions: New atorvastatin 40 mg Tablet 40 mg PO QHS Qty: 0 0RF acetaminophen 325 mg Tablet 1,000 mg PO Q6H PRN PRN (Reason: Pain 1-10 Or Fever >100.7) Qty: 0 0RF aspirin 81 mg Tablet,Chewable 81 mg PO BREAKFAST Qty: 0 0RF Glucerna 1.2 Walter 0.06-1.2 gram-kcal/mL Liquid 120 ml PO 4X/DAY Qty: 0 0RF melatonin 10 mg Tablet, Sublingual 10 mg PO QHS Qty: 0 0RF apixaban 5 mg tablet 5 mg PO BID Qty: 60 0RF Rx Instructions: 2 tablets twice daily for 5 days, then 1 tablet twice daily. Continued PreserVision AREDS-2 1 EACH capsule 1,000 mg PO DAILY diphenhydramine HCl 25 MG capsule 12.5 mg PO QHS PRN (Reason: Insomnia) methenamine mandelate 1 gram tablet 1 g PO BID hydrochlorothiazide 25 mg tablet 25 mg PO DAILY menthol-zinc oxide [Calmoseptine] 0.44-20.6 % ointment 1 applic topical BID Protocol: *Topical Application Instructions APPLICATION INSTRUCTIONS: coccyx Rx Instructions: APPLY TO COCCYX Gemtesa 75 mg tablet 75 mg PO DAILY desvenlafaxine succinate 50 mg tablet extended release 24 hr 50 mg PO Q24H ascorbic acid (vitamin C) [Vitamin C] 500 mg capsule, extended release 1,000 mg PO DAILY carboxymethylcellulose sodium [Refresh Tears] 0.5 % drops 1 drp EACH EYE QHS levothyroxine 100 mcg tablet 100 mcg PO DAILY polyethylene glycol 3350 [Miralax] 17 gram/dose powder 17 g PO DAILY potassium chloride 20 mEq tablet extended release 20 meq PO DAILY magnesium hydroxide [Milk of Magnesia] 400 mg/5 mL suspension 30 ml PO DAILY PRN (Reason: constipation) mirtazapine 15 mg tablet 7.5 mg PO QHS Patient Comments: MAR STATES THAT STRENGTH IS 15MG, AND DOSE IS 7.5MG Held metformin 500 MG tablet 500 mg PO TIDCM Hold Instructions: Resume on 05/23/23. Discontinued nystatin-triamcinolone 100,000-0.1 unit/gram-% ointment 1 applic TOPICAL BID PRN Patient Comments: Apply sparingly to perineum twice daily for irritation/infection. acetaminophen 325 mg tablet 650 mg PO Q4H PRN (Reason: pain) Referrals / Follow Up: Da Ocampo MD [Primary Care Provider] - Within 2 Weeks Noam Goldstein MD [Non-Staff -Ordering Privileges] - Within 3 Months Disposition Disposition (needs filled in before D/C Order can be placed): [facility] Facility Charges/Coding Visit Charges Inpatient E&M: 44059 Disch Hosp >30min
[2023-05-22] MEDS: Insulin Lispro 100 UNIT/ML INSULN.PEN SC (11:02)
--- NOTE | 2023-05-22 11:06 | PHA.DC.MR.R ---
Pharmacy [place] Med Reconciliation Pharmacy Service has performed discharge medication reconciliation for this patient. The patient's discharge medication list was reviewed for discrepancies and discrepancies were resolved. Medications at Discharge Home Medications metformin 500 mg tablet 500 mg PO TIDCM blood sugar 12/10/13 vit C 250 mg-vit E 90 mg-zinc 40 mg-copper 1 [id number] capsule (PreserVision AREDS-2) 1,000 mg PO DAILY multivitamin 04/22/14 diphenhydramine HCl 25 mg capsule 12.5 mg PO QHS PRN Insomnia 11/09/18 methenamine mandelate 1 gram tablet 1 g PO BID URINATION 03/03/21 hydrochlorothiazide 25 mg tablet 25 mg PO DAILY BLOOD PRESSURE 03/24/22 menthol 0.44 %-zinc oxide 20.6 % topical ointment (Calmoseptine) 1 applic topical BID SKIN IRITATION 03/24/22 ascorbic acid (vitamin C) 500 mg capsule,extended release (Vitamin C) 1,000 mg PO DAILY 04/18/23 carboxymethylcellulose sodium 0.5 % eye drops (Refresh Tears) 1 drp EACH EYE QHS EYE IRRITATION 04/18/23 desvenlafaxine succinate 50 mg tablet,extended release 24 hr 50 mg PO Q24H 04/18/23 vibegron 75 mg tablet (Gemtesa) 75 mg PO DAILY 04/18/23 levothyroxine 100 mcg tablet 100 mcg PO DAILY THYROID 05/16/23 magnesium hydroxide 400 mg/5 mL oral suspension (Milk of Magnesia) 30 ml PO DAILY PRN constipation 05/16/23 mirtazapine 15 mg tablet 7.5 mg PO QHS MAJOR DEPRESSIVE DISORDER 05/16/23 polyethylene glycol 3350 17 gram/dose oral powder (Miralax) 17 g PO DAILY CONSTIPATION 05/16/23 potassium chloride 20 mEq tablet,extended release 20 meq PO DAILY POTASSIUM 05/16/23 acetaminophen 325 mg tablet 1,000 mg (3.0769 x 325 mg) PO Q6H PRN PRN Pain 1-10 Or Fever >100.7 #0 tabs 05/22/23 apixaban 5 mg tablet 5 mg PO BID #60 tabs 05/22/23 aspirin 81 mg chewable tablet 81 mg PO BREAKFAST #0 tabs 05/22/23 atorvastatin 40 mg tablet 40 mg PO QHS #0 tabs 05/22/23 melatonin 10 mg sublingual tablet 10 mg PO QHS #0 tabs 05/22/23 nutrition tx glu intol,lac-free,soy-fiber 0.06 gram-1.2 kcal/mL liquid (Glucerna 1.2 Walter) 120 ml PO 4X/DAY #0 mL 05/22/23
[2023-05-22 11:30] LABS: Bedside Glucose 209 mg/dL (74-106)
--- NOTE | 2023-05-22 14:04 | CASEMGMT ---
Discharge Planning Discharge orders, signed med list, covid results, and transport time sent to [facility] via [facility]. Physicians will transport patient by cot at 2:30p. Nursing, SW, patient, and her daughter (Josey) updated. Aleksandra White, Discharge Planning Asst.
== END 2023-05-22 15:04 | disposition skilled nursing facility (03) | DRG 64 ==
LOC: ED 14:57 → PCU 15:44
PROVIDERS: Family Medicine; Hospitalist; Admitting Provider Internal Medicine; Emergency Provider Emergency Medicine; PCP Family Medicine
DX: I63.432 Cerebral infarction due to embolism of left posterior cerebral artery (principal); I26.99 Other pulmonary embolism without acute cor pulmonale; G81.01 Flaccid hemiplegia affecting right dominant side; I82.441 Acute embolism and thrombosis of right tibial vein; N39.0 Urinary tract infection, site not specified; E11.40 Type 2 diabetes mellitus with diabetic neuropathy, unspecified; B96.20 Unspecified Escherichia coli [E. coli] as the cause of diseases classified elsewhere; Z79.4 Long term (current) use of insulin; E03.9 Hypothyroidism, unspecified; F32.A Depression, unspecified; I10 Essential (primary) hypertension; K59.09 Other constipation; F41.9 Anxiety disorder, unspecified; M48.02 Spinal stenosis, cervical region; F40.240 Claustrophobia; R29.810 Facial weakness; R29.711 NIHSS score 11; R29.6 Repeated falls; R45.1 Restlessness and agitation; Z66 Do not resuscitate; Z79.82 Long term (current) use of aspirin; Z79.84 Long term (current) use of oral hypoglycemic drugs; Z79.899 Other long term (current) drug therapy; Z86.73 Personal history of transient ischemic attack (TIA), and cerebral infarction without residual deficits
CPT/HCPCS: 36415; 70496; 70498; 70551; 72141; 80048; 80061; 81001; 82962; 83735; 84484; 85025; 85027; 85730; 87077; 87086; 87088; 87186; 87426; 92507; 93005; 93306; 93970; 94762; 97110; 97129; 97130; 97162; 97166; 97530; 97535; 99285; J7030; J7040; Q9957; Q9967; A4216; C8929